=== PATIENT | male | born 1960 | race Caucasian/White ===

== ENCOUNTER 2017-12-18 18:08 | Emergency (ER) | payer OTHER, SELFPAY ==
[2017-12-18 18:09] VITALS: BP 183/95; PULSE 68; RESP 18; TEMP 36.9; O2SAT 97; BMI 34.5
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
[2017-12-18 20:19] VITALS: BP 205/91; PULSE 67; RESP 17; O2SAT 95
[2017-12-18] MEDS: HYDROcodone Bitartrate/Apap 5/325 Tablet PO (20:34)
[2017-12-18 21:17] VITALS: BP 179/84; PULSE 89; RESP 22; O2SAT 100
--- NOTE | 2017-12-18 21:18 | ED.RN ---
THIS NURSE REVIEWED D/C INSTRUCTIONS WITH PT. PT VERBALIZED UNDERSTANDING OF INSTRUCTIONS. IV D/C. IV CATHETER INTACT. PT TOLERATED WELL. PT DENIES FURTHER NEEDS OR QUESTIONS AT THIS TIME. PT AMBULATES FROM ROOM ON OWN WITHOUT ASSISTANCE FROM STAFF
== END 2017-12-18 21:19 | disposition home or self-care (01) ==
PROVIDERS: Emergency Provider Emergency Medicine
DX: S16.1XXA Strain of muscle, fascia and tendon at neck level, initial encounter (principal); S39.012A Strain of muscle, fascia and tendon of lower back, initial encounter; V49.50XA Passenger injured in collision with unspecified motor vehicles in traffic accident, initial encounter; Y93.89 Activity, other specified; Y92.410 Unspecified street and highway as the place of occurrence of the external cause; I10 Essential (primary) hypertension; F31.9 Bipolar disorder, unspecified; E66.9 Obesity, unspecified; Z68.34 Body mass index [BMI] 34.0-34.9, adult; Z79.899 Other long term (current) drug therapy
CPT/HCPCS: 72040; 72100; 72125; 99284; J7030; A4216

== ENCOUNTER 2018-03-12 09:30 | Outpatient (RCR) | payer OTHER, SELFPAY ==
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
--- NOTE | 2018-03-12 10:23 | HP.PTDCSUM_ITS ---
HP - PT D/C Summary It has been my pleasure to treat NIKO BROWN under orders from Ahmet Dillon, for the diagnosis of CERVICAL SPRAIN, LUMBAR SPRAIN for a total of 13 visit(s). Discharge Date: Please see the following information for a summary of their discharge status. - Subjective Subjective: PATIENT REPORTS HE HASN'T HAD TO TAKE ALEVE FOR A DAY AND A HALF. NO HEADACHES FOR A WEEK AND A HALF. PATIENT REPORTS HE FEELS BACK TO NORMAL AND MAYBE BETTER IN SOME WAYS THAT BEFORE. PATIENT REPORTS OCCASSIONAL LEFT SHOULDER SORENESS - NOT PAIN. OCCASSIONAL STIFF NECK TOO. PATIENT REPORTS EVEN HIS KNEE FEELS BETTER. PATIENT REPORTS POSTURE CONTROL REALLY HELPS HIM. PATIENT REPORTS HE PREFERS TO DISCONTINUE PT AT THIS TIME. PATIENT IS VERY UPBEAT AND POSITIVE ABOUT ALL THE PROGRESS HE HAS MADE. - Pain Lumbar Spine Pain Intensity (Out of 10): 0 Cerv. Spine Pain Intensity (Out of 10): 0 LUE Pain Intensity (Out of 10): 1 Headache Pain Intensity (Out of 10): 0 R knee Pain Intensity (Out of 10): 0 - Overall Improvement % Improvement: 95 - Objective Objective/Function: ALL GOALS MET. UPON EXAM, Motor deficit: RODNEY UE MMT IS 5/ 5 AND PATIENT DENIED INCREASED NECK OR SHOULDER PAIN WITH MMT'ING OF UE'S. RODNEY LE STRENGTH IS ALSO 5/5 WITH MMT'ING AND AGAIN PAIN IS DENIED WITH TESTING. Sensory deficit: RODNEY LE LIGHT TOUCH SENSATION INTACT AND SYMMETRICAL. ROM deficit: RODNEY UE ROM WFL WITH GOOD MECHANICS AND WITHOUT C/O PAIN. Cervical Mvmt Loss: Flex: NIL. Pro: NIL. Ext: MIN. Ret: MOD. RSB: MIN. LSB: MIN. R Rot: MIN. L Rot: MIN. PATIENT HAS DENIES PAIN WITH CERVICAL ROM TESTING ALL PLANES. Lumbar mvmt loss: flex - NIL. ext - MOD. R SG - MIN. L SG - MMIN. Core strength: FAIR. SCAPULAR STRENGTH: FAIR. Palpation: PATIENT DENIES INCREASED PAIN WITH PALPATION OF SPINE OR EXTREMITIES. - Goals Goal 1:: DECREASE C/O HEAD/NECK/SHOULDER PAIN. Goal Progress: Goal Met Goal 2:: DECREASE C/O RODNEY HAND NUMBNESS/TINGLING. Goal Progress: Goal Met Goal 3:: DECREASE C/O LOW BACK AND RIGHT POSTERIOR KNEE PAIN Goal Progress: Goal Met Goal 4:: IMPROVE BENDING, LIFTINIG, SITTING, STANDING, WALKING, ADL, WORK AND SLEEP FUNCTION. Goal Progress: Goal Met Goal 5:: INSTRUCT IN PROPHYLAXIS Goal Progress: Goal Met - Plan Plan: D/C TO INDEP WATER EX PROGRAM. PATIENT IS AGREEABLE. - D/C Information If there are questions or concerns regarding this patient's physical therapy, please feel free to call me at [phone]. Thank you for the referral of this patient. Sincerely, Brook Currie
== END 2018-03-12 19:00 | disposition home or self-care (01) ==
LOC: PT 09:30
PROVIDERS: Visit Provider Chiropractor
DX: S13.4XXD Sprain of ligaments of cervical spine, subsequent encounter (principal); M51.36 Other intervertebral disc degeneration, lumbar region
CPT/HCPCS: 97113; 97162; 97530

== ENCOUNTER 2018-12-21 12:09 | Emergency (ER) | payer OTHER, SELFPAY ==
[2018-12-21 12:12] VITALS: BP 154/93; PULSE 63; RESP 18; TEMP 37.1; O2SAT 97; BMI 35.9
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
--- NOTE | 2018-12-21 12:42 | ED.VISSUMM ---
- ER Visit Summary Date of Service: 12/21/18 Chief Complaint: Head injury and head laceration History of Present Illness: The patient is a 58 M your bipolar and hypertension. Currently on no meds. Patient states that he is walking to get in his truck. He slipped on the ice and hit his head on the door frame in the running board. He has a laceration in the posterior scalp. Has a headache but no nausea or vomiting. No LOC. Was states he struck it very hard he was dazed. It took him a while to get up. He denies any weakness or numbness to his upper or lower extremities. No other injuries. Physical Examination: Middle-aged male. No acute distress. Vital signs are stable afebrile. HEENT exam hematoma with about a 1 inch to 2 inch laceration posterior scalp. There is dried blood. No heavy active bleeding. No pulsatile bleeding. Pupils round reactive light. No facial trauma. Neck stiffness but no specific bony deformity trachea midline. Full range of motion of his neck. Trachea midline. Nontender. Lungs clear to auscultation bilaterally. Heart regular rhythm no murmur. Chest wall nontender. Abdomen soft nontender. Pelvic girdle intact. Normal range of motion to both upper and lower extremities. No deformities. Nontender. Equal symmetrical field marketing lead strength. Dorsi plantar flexion intact. Back nontender. Neurologically is awake and alert with no focal motor or sensory deficits. GCS of 15. Test Results: CT scan of his brain shows chronic changes. Skull hematoma. But no intracranial bleed. No fracture. Reviewed by me and read by the radiologist. Emergency Department Course and Treatment: Procedure note. Posterior scalp laceration approximately 2 inches. Locally anesthetized with plain lidocaine. Cleaned with Shur-Clens. Copiously washed with saline and and irrigated. Explored. There is no foreign body. No bony deformity of the skull. Closed using 5 4-0 Ethilon simple interrupted sutures. Proper hemostasis wound closure obtained. I went over the wound wound care both patient and his who is in the room. She will remove this sutures in 10 days. They are also instructed on head injury instructions and the risk of a delayed intracranial bleed. Treatment Plan: Head injury instructions. Suture removal 10 days. Wound care. Tetanus updated. Disposition: Discharge Impression: Fell on the ice. Closed head injury Scalp laceration with ER repair of 5 cm. Tetanus updated This note was generated with [employer] (Droppy) dictation software. It may contain incorrect words, spelling, and punctuation that were not noted in review of the chart prior to signing ED Disposition - Plan for ED Patient: Chief Complaint: Head Injury Referrals: Care Physician,No Primary [Primary Care Provider] -
[2018-12-21] MEDS: Diphth,Pertuss(Acell),Tet Vac 0.5 ML Vial IM (13:46)
[2018-12-21] MEDS: Acetaminophen 500 MG Tablet 1000 MG PO (14:11)
[2018-12-21 14:12] VITALS: BP 142/90; PULSE 87; RESP 16; O2SAT 99
--- NOTE | 2018-12-21 15:50 | ED.DEP ---
ED Disposition - Plan for ED Patient: Disposition: Home or Assisted Living Chief Complaint: Head Injury Instructions: ED Concussion, ED Laceration Scalp Stitch Or Stap Referrals: Soy Hernandez MD [STAFF PHYSICIAN] - 10 Day for suture removal Additional Instructions: Ice to scalp. Tylenol for pain. Suture removal in 10 days. Keep wound clean. Apply antibiotic ointment daily. May wash hair tonight. Return if severe headache, intractable vomiting or not acting right.
[2018-12-21 15:53] VITALS: BP 163/89; PULSE 87; RESP 18; O2SAT 98
== END 2018-12-21 15:56 | disposition home or self-care (01) ==
PROVIDERS: Emergency Provider Emergency Medicine
DX: S01.01XA Laceration without foreign body of scalp, initial encounter (principal); W00.0XXA Fall on same level due to ice and snow, initial encounter; Y93.01 Activity, walking, marching and hiking; Y92.9 Unspecified place or not applicable; F31.9 Bipolar disorder, unspecified
CPT/HCPCS: 12002; 70450; 72125; 90715; 99283

== ENCOUNTER → 2019-01-12 10:29 | Outpatient (CLI) | payer OTHER, SELFPAY ==
[2019-01-12 10:21] VITALS: BMI 35.9
--- NOTE | 2019-01-12 10:30 | RAD_ITS ---
STUDY: X-RAY - RIGHT KNEE REASON FOR EXAM: Chronic pain. TECHNIQUE: 4 view(s) of the knee. COMPARISON: None. FINDINGS: Normal visualized distal femur. Normal visualized proximal tibia and fibula. Normal proximal tibiofibular articulation. Normal medial femorotibial compartment. Normal lateral femorotibial compartment. There are small marginal osteophytes of the patella without joint space narrowing of the patellofemoral articulation. The soft tissue structures are unremarkable. RAD/Knee 4 or More Views IMPRESSION: Small marginal osteophytes of the patella. Otherwise, unremarkable x-ray examination of the right knee. Electronically Signed: Edinson Beltran MD at 11:48 EST Tel , Service support ,
--- NOTE | 2019-01-12 10:30 | RAD_ITS ---
STUDY: X-RAY - LEFT KNEE REASON FOR EXAM: Chronic pain. TECHNIQUE: 4 view(s) of the knee. COMPARISON: None. FINDINGS: Normal visualized distal femur. There is a metallic foreign body in the medial tibial plateau. Normal proximal tibiofibular articulation. Normal medial femorotibial compartment. Normal lateral femorotibial compartment. There are small marginal osteophytes of the patella without joint space narrowing of the patellofemoral articulation. The soft tissue structures are unremarkable. RAD/Knee 4 or More Views IMPRESSION: Small marginal osteophytes of the patella. Metallic foreign body in the medial tibial plateau. Electronically Signed: Edinson Beltran MD at 11:48 EST Tel , Service support ,
== END ==
PROVIDERS: Referring Provider Physician Assistant; Visit Provider Physician Assistant
DX: M25.561 Pain in right knee (principal); M25.562 Pain in left knee
CPT/HCPCS: 73564

== ENCOUNTER → 2019-01-17 10:47 | Outpatient (CLI) | payer OTHER, SELFPAY ==
[2019-01-17 10:41] VITALS: BMI 35.9
--- NOTE | 2019-01-17 10:50 | RAD_ITS ---
STUDY: X-RAY CHEST REASON FOR EXAM: Male, 58 years old. Cough and chest pain. TECHNIQUE: PA and lateral views of the chest. COMPARISON: None. FINDINGS: Hyperinflation. The lungs are clear. There is no demonstrated pleural abnormality. Normal size heart. Normal mediastinum and cas. Normal visualized pulmonary arteries. Normal visualized aortic arch and descending thoracic aorta. There are diffuse degenerative changes of the visualized thoracic spine. Normal visualized ribs, clavicles, and shoulders. There is no demonstrated abnormality of the visualized soft tissue structures of the upper abdomen. RAD/Chest PA and Lateral IMPRESSION: Hyperinflation. Electronically Signed: Sha Quinn MD at 11:23 EST , Service support ,
== END ==
PROVIDERS: Referring Provider Physician Assistant Surgical; Visit Provider Physician Assistant Surgical
DX: R05 Cough (principal); R50.9 Fever, unspecified
CPT/HCPCS: 71046

== ENCOUNTER → 2019-01-27 15:30 | Outpatient (CLI) | payer OTHER, SELFPAY ==
[2019-01-27 06:13] VITALS: BMI 35.9
== END ==
PROVIDERS: Referring Provider Physician Assistant; Visit Provider Physician Assistant
DX: J02.9 Acute pharyngitis, unspecified (principal)
CPT/HCPCS: 87081

== ENCOUNTER → 2020-02-02 12:24 | Outpatient (CLI) | payer OTHER, SELFPAY ==
[2020-02-02 12:16] VITALS: BMI 35.9
--- NOTE | 2020-02-02 12:27 | RAD_ITS ---
STUDY: X-RAY CHEST REASON FOR EXAM: Male, 59 years old. COUGH AND SOB TECHNIQUE: PA and lateral views of the chest. COMPARISON: 01/17/2019 FINDINGS: The lungs are clear and expanded. There is no demonstrated pleural abnormality. Normal size heart. Normal mediastinum and cas. Normal visualized pulmonary arteries. Normal visualized aortic arch and descending thoracic aorta. Normal visualized thoracic spine. Normal visualized ribs, clavicles, and shoulders. There is no demonstrated abnormality of the visualized soft tissue structures of the upper abdomen. RAD/Chest PA and Lateral IMPRESSION: Normal x-ray examination of the chest. Electronically Signed: Javad Hernandez MD at 12:48 EDT Tel , Service support ,
== END ==
PROVIDERS: Referring Provider Physician Assistant; Visit Provider Physician Assistant
DX: R05 Cough (principal)
CPT/HCPCS: 71046

== ENCOUNTER → 2020-08-03 10:23 | Outpatient (CLI) | payer OTHER, SELFPAY ==
[2020-02-02 12:16] VITALS: BMI 35.9
--- NOTE | 2020-08-03 10:25 | RAD_ITS ---
STUDY: X-RAY CHEST REASON FOR EXAM: Male, 59 years old. chest pain TECHNIQUE: 2 views COMPARISON: Prior chest radiograph of 02/02/2020 FINDINGS: The lungs are clear and expanded. There is no demonstrated pleural abnormality. Normal size heart. Normal mediastinum and cas. Normal visualized pulmonary arteries. There is atherosclerotic tortuosity of the aortic arch and descending thoracic aorta. There are diffuse degenerative changes of the visualized thoracic spine. Normal visualized ribs, clavicles, and shoulders. There is no demonstrated abnormality of the visualized soft tissue structures of the upper abdomen. RAD/Chest PA and Lateral IMPRESSION: No acute cardiopulmonary findings or changes. Negative for consolidation, atelectasis, cardiomegaly or pleural effusion. Negative for evidence of congestive heart failure. Electronically Signed: Madison Juan MD at 21:23 EDT , Service support ,
[2020-08-03 12:54] LABS: Absolute Lymphocyte Count 2.14 X10^3/uL (0.83-4.51); Absolute Neutrophil Count 7.4 X10^3/uL (2.0-7.7); Basophil% 0.9 % (0-1); Eosinophil# 0.14 X10^3/uL; Eosinophils% 1.3 % (0-5); Hematocrit 44.7 % (40-54); Hemoglobin 15.5 g/dL (13.0-16.5); Lymphocyte # 2.14 X10^3/ul (4.0); Mean Corp Hgb Conc 34.7 g/dL (32-36); Mean Corpuscular Hgb 30.5 pg (27.0-32.0); Mean Corpuscular Volume 87.8 fL (80-94); Monocyte# 0.79 X10^3/uL; Monocyte% 7.4 % (0-10); NRBC Flagged by Analyzer 0 % (0-5); Neutrophil # 7.41 X10^3/uL (2.7-7.7); Neutrophil % 69.4 % (47-70); Platelet Count 239 K/mm3 (150-450); RBC Distribution Width CV 12.5 % (11.6-14.6); RBC Distribution Width SD 39.6 fl (35.1-43.9); Red Blood Count 5.09 M/mm3 (4.6-6.2); White Blood Count 10.7 K/mm3 (4.4-11.0)
[2020-08-03 13:42] LABS: BUN 14 mg/dL (7-18); Glucose 146 mg/dL (74-106)
[2020-08-03 13:43] LABS: ALB/GLOB Ratio 1.2 RATIO (0.9-2.4); AST(SGOT) 28 U/L (15-37); Alanine Aminotransfer ALT/SGPT 51 U/L (16-61); Alkaline Phosphatase 55 U/L (45-117); Anion Gap 7 (5-15); Calcium,Total 9.1 mg/dL (8.5-10.1); Chloride 105 mmol/L (98-107); Cholesterol 166 mg/dL (200); EST Glomerular Filtration Rate 81 mL/min (>60); Est Glom Filt Rate - Afr Amer 97 mL/min (>60); Globulin 3.4 g/dL (2.2-4.2); High Density Lipoprotein 39 mg/dL; Potassium 4.3 mmol/L (3.5-5.1); Protein, Total 7.4 g/dL (6.4-8.2); Sodium Level 139 mmol/L (136-145); Thyroid Stim Hormone (TSH) 2.28 uIU/mL (0.358-3.74); Triglycerides 173 mg/dL; Very Low Density Lipoprotein 35 mg/dL (5-40)
== END ==
PROVIDERS: PCP Family Medicine; Referring Provider Family Medicine; Visit Provider Family Medicine
DX: R07.9 Chest pain, unspecified (principal); I10 Essential (primary) hypertension; R73.09 Other abnormal glucose
CPT/HCPCS: 36415; 71046; 80053; 80061; 83036; 84443; 85025

== ENCOUNTER → 2020-08-08 08:40 | Outpatient (CLI) | payer OTHER, SELFPAY ==
[2020-02-02 12:16] VITALS: BMI 35.9
--- NOTE | 2020-08-08 08:47 | CDU_ITS ---
Reason For Study: CAROTID STENOSIS Rt. Velocities/BP Lt. Velocities/BP Prox CCA 132/16 cm/sec. Prox CCA 102/27 cm/sec. Mid CCA 108/20 cm/sec. Mid CCA 125/21 cm/sec. Dist CCA 129/28 cm/sec. Dist CCA 91/30 cm/sec. Prox ICA 81/16 cm/sec. Prox ICA 91/25 cm/sec. Mid ICA 83/22 cm/sec. Mid ICA 91/29 cm/sec. Dist ICA 124/38 cm/sec. Dist ICA 96/29 cm/sec. Rt. ICA/CCA = 1.0. Lt. ICA/CCA = .9. Prox ECA 209/18 cm/sec. Prox ECA 134/14 cm/sec. Rt. Vert. 69/16 cm/sec. Lt. Vert. 40/0 cm/sec. Right Extracranial There is homogeneous, smooth atherosclerotic plaque noted in the right common carotid artery. There is heterogeneous, irregular atherosclerotic plaque noted in the right internal carotid artery. There is heterogeneous, irregular atherosclerotic plaque noted in the right external carotid artery. Antegrade flow is noted in the right vertebral artery. There is heterogeneous, irregular atherosclerotic plaque noted in the right bulb. .26 x .21 cm mobile thrombus noted in Rt Carotid bulb. Left Extracranial There is homogeneous, smooth atherosclerotic plaque noted in the left common carotid artery. There is homogeneous, smooth atherosclerotic plaque noted in the left internal carotid artery. There is homogeneous, smooth atherosclerotic plaque noted in the left external carotid artery. Antegrade flow is noted in the left vertebral artery. There is heterogeneous, irregular atherosclerotic plaque noted in the left bulb. Procedure Carotid Duplex [id number]. Results called to Dr Loving. Pt taken to ED. Exam performed in department. Interpretation Summary Moderate (50-69%) stenosis right extracranial internal carotid. Mild (<50%) stenosis left extracranial internal carotid. Flow within the vertebral arteries is antegrade bilaterally. Mobile thrombus noted in right bulb. Further evaluation with CTA. Ordering Physician: Derrell Salmeron Referring Physician: Derrell Salmeron Performed By: Kristen Mishra RDCS, RVT
== END ==
PROVIDERS: PCP Family Medicine; Referring Provider Family Medicine; Visit Provider Family Medicine
DX: I65.29 Occlusion and stenosis of unspecified carotid artery (principal); R06.02 Shortness of breath; R07.9 Chest pain, unspecified
CPT/HCPCS: 93880

== ENCOUNTER 2020-08-08 10:10 | Observation (INO) | payer OTHER, SELFPAY ==
[2020-02-02 12:16] VITALS: BMI 35.9
[2020-08-08] VITALS (14 sets, daily range): BP systolic 139–207; BP diastolic 78–103; PULSE 53–67; RESP 14–19; TEMP 36.2–36.8; O2SAT 96–100; BMI 35.3; BMI 35.6; BMI 35.7
--- NOTE | 2020-08-08 10:15 | NURSING ---
NO OLD EKGS
--- NOTE | 2020-08-08 10:42 | EKG12_ITS ---
Test Reason : CP Blood Pressure : / mmHG Vent. Rate : 067 BPM Atrial Rate : 067 BPM P-R Int : 148 ms QRS Dur : 092 ms QT Int : 390 ms P-R-T Axes : 025 -14 041 degrees QTc Int : 412 ms Normal sinus rhythm Poor R wave progression Confirmed by CHEYENNE GAGE, ZANA ([id number]), design editor YOVANA ROSENBAUM ([id number]) on 08/09/2020 1:07:47 PM Referred By: BRENDA Confirmed By:ZANA QUINN MD
[2020-08-08 10:53] LABS: Absolute Lymphocyte Count 2.52 X10^3/uL (0.83-4.51); Absolute Neutrophil Count 7.7 X10^3/uL (2.0-7.7); Basophil# 0.11 X10^3/uL; Eosinophil# 0.19 X10^3/uL; Eosinophils% 1.6 % (0-5); Hematocrit 46.9 % (40-54); Hemoglobin 16.1 g/dL (13.0-16.5); Lymphocyte # 2.52 X10^3/ul (4.0); Lymphocyte % 21.8 % (19-41); Mean Corp Hgb Conc 34.3 g/dL (32-36); Mean Corpuscular Hgb 30.1 pg (27.0-32.0); Mean Corpuscular Volume 87.8 fL (80-94); Mean Platelet Vol. 9.8 fl (6.2-12.0); Monocyte# 0.91 X10^3/uL; Monocyte% 7.9 % (0-10); NRBC Flagged by Analyzer 0 % (0-5); Neutrophil # 7.69 X10^3/uL (2.7-7.7); Neutrophil % 66.6 % (47-70); Platelet Count 266 K/mm3 (150-450); RBC Distribution Width CV 12.5 % (11.6-14.6); RBC Distribution Width SD 39.8 fl (35.1-43.9); Red Blood Count 5.34 M/mm3 (4.6-6.2); White Blood Count 11.6 K/mm3 (4.4-11.0)
[2020-08-08 11:00] LABS: International Normalized Ratio 0.9; Partial Thromboplast Time 24.9 Seconds (24.1-36.2)
[2020-08-08 11:07] LABS: Anion Gap -2 (5-15); BUN 14 mg/dL (7-18); BUN/Creat Ratio 14.8 RATIO (10-20); Calcium,Total 9.1 mg/dL (8.5-10.1); Chloride 107 mmol/L (98-107); Creatinine, Serum 0.94 mg/dL (0.70-1.30); EST Glomerular Filtration Rate 86 mL/min (>60); Est Glom Filt Rate - Afr Amer 104 mL/min (>60); Estimated Creatinine Clearance 93.26 ml/min; Glucose 142 mg/dL (74-106); Potassium 4.3 mmol/L (3.5-5.1); Sodium Level 139 mmol/L (136-145)
[2020-08-08 11:09] LABS: D-Dimer Quantitative (DVT/PE) <= 0.27 FEU/ug/m (0.27-0.49)
--- NOTE | 2020-08-08 11:16 | RAD_ITS ---
STUDY: X-RAY CHEST REASON FOR EXAM: Male, 59 years old. CP AND SOB X 3 DAYS TECHNIQUE: Single AP portable view of the chest. COMPARISON: Comparison is made with prior study dated 08/03/2020. FINDINGS: EKG electrodes are seen. The lungs are clear and expanded. There is no demonstrated pleural abnormality. Normal size heart. Normal mediastinum and cas. Normal visualized pulmonary arteries. Normal visualized aortic arch and descending thoracic aorta. There are diffuse degenerative changes of the visualized thoracic spine. Normal visualized ribs, clavicles, and shoulders. There is no demonstrated abnormality of the visualized soft tissue structures of the upper abdomen. RAD/Chest 1 View (Portable) IMPRESSION: No acute abnormality is seen. Electronically Signed: Sha Quinn, at 12:09 EDT , Service support ,
[2020-08-08] MEDS: Aspirin 81 MG TAB.CHEW 324 MG PO (11:33)
[2020-08-08] MEDS: Nitroglycerin SL (ED/IMG/CATH) 0.4 MG TABLET SUBLINGUAL ×3 (11:34→12:30)
--- NOTE | 2020-08-08 11:45 | ED.VISSUMM ---
- ER Visit Summary Date of Service: 08/08/20 Chief Complaint: Chest pain History of Present Illness: The patient is a 59 M who presents with chest pain that has been constant over the last 5 days. Patient states the pain is over the left upper chest. Patient describes it as sharp. Patient states the pain radiates into his neck. Patient states the pain is worse with movement of his arm. Patient admits to some shortness of breath. Patient states this is worse with any exertion. Patient also admits to some sweats yesterday. Patient admits to a dry cough but denies any fevers or chills. Patient admits to some intermittent lightheadedness. Patient had an outpatient carotid Doppler performed today and was referred to the emergency department for a blockage. Physical Examination: Vital signs are stable except for an elevated blood pressure of 207/103. Patient is afebrile. Patient is in no acute distress. Oral mucosa is pink and moist. Neck is supple. Trachea is midline. There is no JVD noted. Heart was regular rate and rhythm. Lungs are clear and equal bilaterally. Abdomen is soft. Bowel sounds are normal. There is no tenderness. There is no rebound or guarding noted. Skin is warm dry. Cranial nerves II through XII are intact. There are no focal motor or sensory deficits noted. Extremities are intact. There is no calf tenderness or edema. Test Results: EKG shows a normal sinus rhythm with a rate of 87. There are no acute ST or T wave changes noted. There are no prior EKGs available for comparison. CBC was normal. Basic metabolic profile was essentially within normal limits. Glucose was slightly elevated at 142. PT with INR and PTT were normal. Troponin and d-dimer were normal. Chest x-ray was obtained. There is no acute cardiopulmonary process. This was interpreted by the radiologist and reviewed by myself. Emergency Department Course and Treatment: Patient was given aspirin and sublingual nitroglycerin. Patient states his pain is improved. Patient has a HEART score of 4. I did review the results of his carotid Dopplers that were done this morning. There is 50-69% stenosis of the internal and external carotid arteries. There is also a mobile thrombus noted in the right carotid bulb and follow-up with CTA of the head and neck was recommended. CTA of the head neck was ordered. There is 50 to 69% stenosis of the right internal carotid artery. There is also a small thrombus at the right carotid bifurcation. This was interpreted by the radiologist and reviewed by myself. Case was discussed with the hospitalist. Patient will be admitted for chest pain evaluation. Patient understood and was agreeable with the plan. All questions were answered. Disposition: Admit to hospital Impression: 1. Chest pain 2. Right carotid artery stenosis This note was generated with [employer] dictation software. It may contain incorrect words, spelling, and punctuation that were not noted in review of the chart prior to signing ED Disposition - Plan for ED Patient: Disposition: Acute Care Hospital [facility] Diagnosis: Chest pain, Stenosis of right carotid artery Referrals: Derrell Salmeron MD [Primary Care Provider] -
--- NOTE | 2020-08-08 12:06 | CT_ITS ---
STUDY: CTA HEAD AND NECK WITH CONTRAST REASON FOR EXAM: Male, 59 years old. MOBILE RT BULB THROMBUS WITH MODERATE STENOSIS RT EXT CAROTID RADIATION DOSAGE (If Supplied By Facility): CTDIvol = ( 28.52 ) mGy, DLP = ( 1628.18 ) mGycm TECHNIQUE: CT angiography was performed with a multi-detector CT scanner. Data acquisition was obtained from the skull base through the vertex following intravenous administration of IV 100mL [id number]-[id number]. MIP images were reconstructed from the axial data set. Post-processing of the angiographic images was performed, with multiplanar reformation and 3D reconstruction. Individualized dose optimization techniques were used for this CT. COMPARISON: No relevant priors. FINDINGS: Normal bilateral petrous carotid arteries. Normal right cavernous carotid artery with a normal supraclinoid bifurcation. Normal left cavernous carotid artery with a normal supraclinoid bifurcation. Normal right A1 segments of the anterior cerebral artery. Normal left A1 segments of the anterior cerebral artery. Normal intact anterior communicating artery (ACOM). Normal bilateral A2 segments of the anterior cerebral arteries. Normal right M1 and M2 segments of the middle cerebral arteries, with a normal M1 bifurcation. Normal left M1 and M2 segments of the middle cerebral arteries, with a normal M1 bifurcation. Normal right posterior communicating artery (PCOM). Normal left posterior communicating artery (PCOM). Normal bilateral vertebral arteries. Normal basilar artery with a normal basilar bifurcation. The visualized bilateral superior cerebellar (SCA) arteries are normal. Normal bilateral P1, P2 and visualized P3 segments of the posterior cerebral arteries. There is no demonstrated aneurysm of the [place]. There is no demonstrated abnormality of the visualized brain. AORTIC ARCH: Normal visualized aortic arch. Normal origins of the brachiocephalic, left common carotid, and left subclavian arteries. RIGHT CAROTID ARTERIES: Normal right common carotid artery (CCA). Normal right common carotid bulb. There is moderate atherosclerotic plaque formation of the origin of the right internal carotid artery with an estimated stenosis of 50-69% stenosis. Focal thrombus is seen within the carotid bulb. Normal visualized cervical portion of the right internal carotid artery. Normal origin of the right external carotid artery (ECA). LEFT CAROTID ARTERIES: Normal left common carotid artery (CCA). Normal left common carotid bulb. Normal origin of the left internal carotid (ICA) artery without a hemodynamically significant stenosis. Normal visualized cervical portion of the left internal carotid artery. Normal origin of the left external carotid artery (ECA). VERTEBRAL ARTERIES: There is enhancement within the bilateral vertebral arteries with a small left vertebral artery, and a dominant right vertebral artery. CT/CTA Head AND Neck W/ Contrast IMPRESSION: Calcific plaque at the origin of the right internal carotid artery causing between 50 and 69% stenosis. Filling defect into with a small thrombus is seen at the right carotid bifurcation. Electronically Signed: Sha Quinn, at 12:48 EDT , Service support ,
--- NOTE | 2020-08-08 13:04 | HP.PCM_ITS ---
History of Present Illness Date of Admission: 08/08/20 Chief Complaint: Chest pain The patient is a 59 year old M with PMH as below who presents to the hospital with with a one-month history of chest pain, has had a couple of episodes where he is felt some slight chest pain that resolved fairly quickly however in the last 5 days he had an episode of viselike chest pressure when he went to his PCPs office. He was a new patient there and had an EKG, and he relates that the physician commented well but did not express anything about what his EKG was at the time. His current EKG is unremarkable and does not show any ischemic changes, his heart rate is 54 however he did start metoprolol and Norvasc from h is PCP. He says the pain is over his left upper chest and says it is sharp. It does radiate into his neck and it is worse with arm movement. He has no some shortness of breath and lightheadedness and that it is worse with exertion. He had gone to his PCP who asked him to have a carotid ultrasound of his neck which did show 50 to 69% stenosis in his right carotid artery but there is also what w as felt to be a mobile plaque. Therefore he also was referred to the hospital to get a CTA of his head and neck. The CTA of the head and neck confirmed the stenosis and that there is a filling defect at the bifurcation of the right carotid artery. Past Medical History Past Medical History (Chronic Problems): Chronic Problems (Last Updated 08/07/20 @ 17:16 by Bridget Gordon) Essential hypertension (Chronic) Medical History: Medical History (Last Updated 08/07/20 @ 17:16 by Bridget Gordon) Shortness of breath (Acute) R06.02 Essential hypertension (Chronic) I10 Chest pain (Acute) R07.9 Bipolar 1 disorder F31.9 Arthritis M19.90 Acute bronchitis (Resolved) J20.9 Pharyngitis (Resolved) J02.9 Shoulder pain M25.519 Allergies No Known Allergies Allergy (Verified 08/08/20 10:16) Home Medications: Ambulatory Orders Medication Instructions Recorded amlodipine 10 mg tablet 10 mg PO DAILY 08/07/20 lithium carbonate 300 mg capsule 600 mg PO BID cap 08/07/20 metoprolol succinate 50 mg 50 mg PO DAILY 08/07/20 tablet,extended release 24 hr trazodone 100 mg tablet 1 - 2 mg PO QHS tab 08/07/20 Surgical History: Surgical History (Last Updated 08/07/20 @ 17:12 by Bridget Gordon) History of arthroscopy of knee Z98.890 History of bursectomy Z98.890 left olecrenon History of carpal tunnel release Z98.890 Smoking Status: Never smoker Alcohol: Occasional Drugs: None - *Family History Maternal Family History: Family History (Last Updated 08/07/20 @ 17:14 by Bridget Gordon) Father Myocardial infarction Hypertension Alcoholism Mother Cancer Diabetes Brother Heart disease Hypertension Alcoholism Cancer Grandfather Myocardial infarction CVA (cerebral vascular accident) Carotid arterial disease Review of Systems Constitutional: Denies: Chills, Fever, Weight Change HEENT: Denies: Head Aches, Sinus Congestion, Sinus Drainage Cardiovascular: Reports: Chest Pain. Denies: Palpitations Respiratory: Reports: Shortness of Breath. Denies: Cough, Shortness of breath at rest, Sputum production Gastrointestinal: Denies: Abdominal Pain, Nausea, Vomiting Genitourinary: Denies: Dysuria Musculoskeletal: Denies: Joint Pain, Joint Tenderness Skin: Denies: Rash, Wounds Neurological: Denies: Numbness, Tingling, Focal weakness Psychiatric: Denies: Anxiety, Depression Hematologic/ Lymphatic: Denies: Easy Bruising, Easy Bleeding VTE Information - Inpt Only VTE Present on Admission: No Patient Problems: Active and Suspected Problems (Last Updated 08/07/20 @ 17:16 by Bridget No) Stenosis of right carotid artery (Acute) Shortness of breath (Acute) Chest pain (Acute) - Physical Exam Vitals/I&O's: Vital Signs Temp Pulse Resp BP Pulse Ox 97.8 F 59 L 14 157/81 H 97 08/08/20 13:01 08/08/20 13:01 08/08/20 13:01 08/08/20 13:01 08/08/20 13:01 Oxygen Delivery Method Room Air Weight: 267 lb 13.786 oz Body Mass Index (BMI) 35.3 General: Alert, Oriented x3, Cooperative, No apparent distress HEENT: Atraumatic, PERRLA, EOMI, Normocephalic Oral: Moist Mucosa Neck: Supple, No JVD Lungs: Clear to auscultation, Normal air movement, No rhonchi, No wheeze, No rales Cardiovascular: Regular rate, Regular Rhythm, Normal S1, Normal S2, No murmurs Abdomen: Soft, Non Tender, Non-Distended, No Hepato-splenomegaly, Obese Extremities: No edema, Capillary Refill Less than 3 Seconds Skin: No rashes, No breakdown Neurological: Neuro grossly intact, Sensory exam intact to light touch and pain Psych/Mental Status: Normal Affect, Appropriate Laboratory Results 08/08/20 10:18: WBC 11.6 H, RBC 5.34, Hgb 16.1, Hct 46.9, MCV 87.8, MCH 30.1, MCHC 34.3, RDW Std Deviation 39.8, RDW Coeff of Erin 12.5, Plt Count 266, MPV 9.8, Immature Gran % (Auto) 1.100 H, Neut % (Auto) 66.6, Lymph % (Auto) 21.8, Mcduffie % (Auto) 7.9, Eos % (Auto) 1.6, Baso % (Auto) 1.0, Absolute Neuts (auto) 7.7, Absolute Lymphs (auto) 2.52, Nucleated RBC % 0 08/08/20 10:18: PT 12.0, INR 0.9, APTT 24.9, D-Dimer Quant (PE/DVT) <= 0.27 08/08/20 10:18: Sodium 139, Potassium 4.3, Chloride 107, Carbon Dioxide 34.0 H, Anion Gap -2 L, BUN 14, Creatinine 0.94, Estim Creat Clear Calc 93.26, Est GFR (MDRD) Af Amer 104, Est GFR (MDRD) Non-Af 86, BUN/Creatinine Ratio 14.8, Glucose 142 H, Calcium 9.1, Troponin I < 0.015 Assessment/Plan All Active Problems (Last Updated 08/07/20 @ 17:16 by Bridget Gordon) Stenosis of right carotid artery (Acute) Shortness of breath (Acute) Chest pain (Acute) Acute bronchitis (Resolved) Pharyngitis (Resolved) 1. Chest pain/mobile plaque at the right carotid bifurcation/HTN/orbit obesity -Troponin is unremarkable, EKG does not show any ischemic changes -We will obtain serial troponins and have an exercise stress test in the morning -I discussed the issue of the stenosis in the mobile plaque with Dr. Loving who read the carotid ultrasound and he would like the patient to be on dual antiplatelets as well as a statin which will be initiated today. -We will continue with his Norvasc and metoprolol 2. Bipolar -Stable -Continue with lithium DVT: Ambulation OBSV E&M: [id number] Initial observation care L2
--- NOTE | 2020-08-08 14:13 | EKG12_ITS ---
Test Reason : Blood Pressure : / mmHG Vent. Rate : 054 BPM Atrial Rate : 054 BPM P-R Int : 156 ms QRS Dur : 094 ms QT Int : 422 ms P-R-T Axes : 034 -06 040 degrees QTc Int : 400 ms Sinus bradycardia Poor R wave progression Confirmed by CHEYENNE GAGE, ZANA ([id number]), metropolitan editor YOVANA ROSENBAUM ([id number]) on 08/09/2020 1:12:18 PM Referred By: ETHEL Confirmed By:ZANA QUINN MD
[2020-08-08] MEDS: Atorvastatin Calcium 40 MG Tablet PO (21:50)
[2020-08-08] MEDS: traZODone 100 MG Tablet PO (23:18)
[2020-08-08] MEDS: Lithium Carbonate 300mg Capsule 600 MG PO (23:18)
[2020-08-09] VITALS (10 sets, daily range): BP systolic 157–166; BP diastolic 69–86; PULSE 49–83; RESP 14–20; TEMP 36.4–36.7; O2SAT 96–98
--- NOTE | 2020-08-09 05:55 | EKG12_ITS ---
Test Reason : AM EKG Blood Pressure : / mmHG Vent. Rate : 055 BPM Atrial Rate : 055 BPM P-R Int : 156 ms QRS Dur : 096 ms QT Int : 424 ms P-R-T Axes : 041 000 048 degrees QTc Int : 405 ms Sinus bradycardia Otherwise normal ECG When compared with ECG of 08-AUG-2020 13:48, MANUAL COMPARISON REQUIRED, DATA IS UNCONFIRMED Confirmed by DAVID GAGE, REGGIE ([id number]), photographic editor YOVANA ROSENBAUM ([id number]) on 08/13/2020 1:22:26 PM Referred By: RULA Confirmed By:DON HERNANDEZ MD
[2020-08-09] MEDS: Aspirin 81 MG TAB.CHEW PO (06:12)
[2020-08-09] MEDS: Clopidogrel Bisulfate 75 MG Tablet PO (06:12)
[2020-08-09 06:26] LABS: Absolute Lymphocyte Count 3.17 X10^3/uL (0.83-4.51); Absolute Neutrophil Count 6.4 X10^3/uL (2.0-7.7); Basophil# 0.11 X10^3/uL; Eosinophil# 0.25 X10^3/uL; Eosinophils% 2.3 % (0-5); Hematocrit 43.3 % (40-54); Hemoglobin 14.9 g/dL (13.0-16.5); Lymphocyte # 3.17 X10^3/ul (4.0); Lymphocyte % 29.1 % (19-41); Mean Corp Hgb Conc 34.4 g/dL (32-36); Mean Corpuscular Hgb 30.3 pg (27.0-32.0); Mean Platelet Vol. 9.6 fl (6.2-12.0); Monocyte# 0.94 X10^3/uL; Monocyte% 8.6 % (0-10); NRBC Flagged by Analyzer 0 % (0-5); Neutrophil % 58.6 % (47-70); Platelet Count 207 K/mm3 (150-450); RBC Distribution Width CV 12.4 % (11.6-14.6); RBC Distribution Width SD 39.8 fl (35.1-43.9); Red Blood Count 4.92 M/mm3 (4.6-6.2); White Blood Count 10.9 K/mm3 (4.4-11.0)
[2020-08-09 06:50] LABS: Anion Gap 5 (5-15); BUN 14 mg/dL (7-18); BUN/Creat Ratio 15.7 RATIO (10-20); Calcium,Total 8.8 mg/dL (8.5-10.1); Chloride 105 mmol/L (98-107); Cholesterol 169 mg/dL (200); Creatinine, Serum 0.89 mg/dL (0.70-1.30); EST Glomerular Filtration Rate 92 mL/min (>60); Est Glom Filt Rate - Afr Amer 111 mL/min (>60); Estimated Creatinine Clearance 95.67 ml/min; Glucose 134 mg/dL (74-106); High Density Lipoprotein 34 mg/dL; Potassium 3.8 mmol/L (3.5-5.1); Sodium Level 138 mmol/L (136-145); Triglycerides 232 mg/dL; Very Low Density Lipoprotein 46 mg/dL (5-40)
[2020-08-09] MEDS: amLODIPine 10 MG Tablet PO (08:24)
--- NOTE | 2020-08-09 12:07 | PCM.PN.HOSP ---
Patient Problems: Active and Suspected Problems (Last Updated 08/07/20 @ 17:16 by Bridget Gordon) Stenosis of right carotid artery (Acute) Shortness of breath (Acute) Chest pain (Acute) Reason for Visit: JAUN, cellulitis Subjective: Pt agreeable to biopsy. Ongoing LE edema with serosanguinous drainage. Denies fever/chills. Denies SOB / cough. He continues to make some urine. Vitals/I&O's: Vital Signs Temp Pulse Resp BP Pulse Ox 98.0 F 66 20 H 166/81 H 98 08/09/20 07:49 08/09/20 07:49 08/09/20 07:49 08/09/20 07:49 08/09/20 07:51 Oxygen Delivery Method Room Air Weight: 269 lb 2.951 oz Body Mass Index (BMI) 35.6 Intake and Output for Last 24 Hours 08/07/20 08/08/20 08/09/20 23:59 23:59 23:59 Intake Total 960 / 960 540 / 540 Balance 960 / 960 540 / 540 General: Alert, Oriented x3, Cooperative HEENT: Atraumatic, PERRLA, EOMI, Normocephalic Neck: Supple, No JVD, Negative Carotid Bruits Lungs: Clear to auscultation, Normal air movement Cardiovascular: Regular rate, No murmurs Abdomen: Bowel Sounds Present, Soft, Non Tender, Obese Extremities: No edema, Capillary Refill Less than 3 Seconds, Edema - 3+ pitting edema BLE, mild warmth, erythema, serosanguinous drainage. Skin: No rashes, No breakdown Musculoskeletal: No Tenderness to Palpation of Joints or Extremities Neurological: Cranial nerves II-XII grossly intact Psych/Mental Status: Normal Affect, Appropriate, Alert and oriented to time, place, person, mood and affect Laboratory Results 08/08/20 13:54: Troponin I < 0.015 08/08/20 17:15: Troponin I < 0.015 08/09/20 06:12: WBC 10.9, RBC 4.92, Hgb 14.9, Hct 43.3, MCV 88.0, MCH 30.3, MCHC 34.4, RDW Std Deviation 39.8, RDW Coeff of Erin 12.4, Plt Count 207, MPV 9.6, Immature Gran % (Auto) 0.400, Neut % (Auto) 58.6, Lymph % (Auto) 29.1, [place] % (Auto) 8.6, Eos % (Auto) 2.3, Baso % (Auto) 1.0, Absolute Neuts (auto) 6.4, Absolute Lymphs (auto) 3.17, Nucleated RBC % 0 08/09/20 06:12: Sodium 138, Potassium 3.8, Chloride 105, Carbon Dioxide 28.0, Anion Gap 5, BUN 14, Creatinine 0.89, Estim Creat Clear Calc 95.67, Est GFR (MDRD) Af Amer 111, Est GFR (MDRD) Non-Af 92, BUN/Creatinine Ratio 15.7, Glucose 134 H, Calcium 8.8, Triglycerides 232 H, Cholesterol 169, LDL Cholesterol 89, VLDL Cholesterol 46 H, HDL Cholesterol 34 L Current Medications Amlodipine Besylate (Norvasc) 10 mg PO DAILY [facility] Last Admin: 08/09/20 08:24 Dose: 10 mg Documented by: Aspirin (Aspirin, Baby) 81 mg PO DAILY@0800 [facility] Last Admin: 08/09/20 06:12 Dose: 81 mg Documented by: Atorvastatin Calcium (Lipitor) 40 mg PO QHS [facility] Last Admin: 08/08/20 21:50 Dose: 40 mg Documented by: Clopidogrel Bisulfate (Plavix) 75 mg PO DAILY [facility] Last Admin: 08/09/20 06:12 Dose: 75 mg Documented by: Klemme Carbonate (Klemme Carbonate) 600 mg PO BID [facility] Last Admin: 08/08/20 23:18 Dose: 600 mg Documented by: Melatonin (Melatonin) 3 mg PO QHS PRN PRN PRN Reason: INSOMNIA Metoprolol Succinate (Toprol Xl (Beta Rajani)) 50 mg PO DAILY [facility] Nitroglycerin (Nitrostat) 0.4 mg SUBLINGUAL Q5M PRN PRN Reason: CARDIAC/CHEST PAIN Ondansetron HCl (Zofran) 4 mg IV Q8H PRN PRN PRN Reason: NAUSEA/VOMITING Sodium Chloride () 10 - 40 ml IV UD PRN PRN Reason: SALINE FLUSH Trazodone HCl (Desyrel) 100 mg PO QHS PRN PRN PRN Reason: sleep Last Admin: 08/08/20 23:18 Dose: 100 mg Documented by: Medical Necessity - Tobacco Use Smoking Status: Never smoker Tobacco Use: Non-smoker Assessment/Plan All Active Problems (Last Updated 08/07/20 @ 17:16 by Bridget Gordon) Stenosis of right carotid artery (Acute) Shortness of breath (Acute) Chest pain (Acute) Acute bronchitis (Resolved) Pharyngitis (Resolved) 1. BL LE cellulitis complicated by chronic venous insufficiency - continue rocephin - cx's susceptible. Continue wound care with daily dressing changes and plan for wound care center follow up. 2. JAUN - Neprhology consulted. agreeable to renal bx today. no improvement in renal function, decent urine output the last 2 days. aspirin held, HCTZ and ARB held, metformin held. 3. Hyponatremia - Improving daily. HCTZ stopped. fluids restricted. likely hypervolemic. 4. chronic systolic CHF, cardiomyopathy - edematous however will not be able to tolerate lasix given worsening renal dz. No SOB. Echo with EF 50%. CM has been related to tacchyarrythmia in the past - pt remains on metoprolol and amiodarone. 5. DMt2 with morbid obesity - lantus + SSI. 6. HTN - stable now. DVT ppx: lovenox held for bx DC planning: PTOT evals. This patient was seen by Marco Caro PA-C under the supervision of Doctor Terrell.
[2020-08-09] MEDS: Lithium Carbonate 300mg Capsule 600 MG PO (12:11)
[2020-08-09] MEDS: Metoprolol(XL)Succ 50 MG Tablet PO (12:11)
--- NOTE | 2020-08-09 15:08 | STRESSREP ---
Stress Test Report Date: 08/09/2020 Procedure: Pharmacologic stress nuclear imaging study Indications: Chest pain Consent: Per the patient Procedure: The patient underwent pharmacologic (Regadenoson) evaluation with a peak heart rate of 91 beats per minute (57%predicted maximal heart rate) and a peak blood pressure of 170/96 mmHg. The baseline ECG demonstrated normal sinus rhythm. EKG during lexiscan infusion revealed no significant ischemic changes. EKG post infusion revealed no significant ischemic changes [There were no cardiac dysrhythmias pretest, during pharmacologic infusion, or recovery]. [There was no complaint of chest discomfort during pharmacologic infusion or recovery]. The examination was discontinued secondary to completion of protocol. Impression: 1. Lexiscan stress test test is negative for Lexiscan infusion induced EKG changes of ischemia. 2. Lexiscan stress test test is negative for Lexiscan infusion induced chest pain. 3. Results of the nuclear portion of the test is as below Myocardial perfusion imaging study: Technique: The patient was injected with 14.8 millicuries of technetium 99m Cardiolite and subsequently rest SPECT Cardiolite nuclear imaging was obtained in the horizontal long, vertical long, and short axis views. The patient underwent pharmacologic (Regadenoson) evaluation. Please see above for details. The patient was injected with 44.4 millicuries of technetium 99m Cardiolite and subsequently stress SPECT Cardiolite nuclear imaging was obtained in the horizontal long, vertical long, and short axis views. A gated Cardiolite study at peak stress was obtained. Interpretation: Rest and stress SPECT Cardiolite nuclear imaging status post realignment, normalization, and attenuation correction demonstrate normal myocardial radioisotope uptake. Gated images reveal no significant regional wall motion abnormalities. The reported LVEF is [62]%. Impression: 1. There is no evidence of significant ischemia or infarction. 2. Estimated ejection fraction is 62%. This note was generated with [employer] software. It may contain incorrect words, spelling, and punctuation that were not noted in checking the note before signing.
--- NOTE | 2020-08-09 15:21 | DCINST_ITS ---
- Discharge Diagnoses Current Active Problems: Current Active and Chronic Problems (Last Updated 08/07/20 @ 17:16 by Bridget Gordon) Stenosis of right carotid artery (Acute) Shortness of breath (Acute) Essential hypertension (Chronic) Chest pain (Acute) You will use the following diet at home:: Calorie/Carbohydrate Controlled (specify 1200, 1400, etc), Cardiac Your food should be the consistency of: Regular Your liquids should be the consistency of: Regular/Thin Discharge Activity: Return to Normal Activity Call your doctor if you observe: Fever of 101 or Higher, Shortness of breath, Dizziness, Fainting spells, Swelling in the ankles, Chest pain, Increased palpitations (irregular heartbeat) Allergies/Adverse Reactions: Allergies No Known Allergies Allergy (Verified 08/08/20 10:16) Medications to take at Discharge amlodipine 10 mg tablet 10 mg PO DAILY 08/07/20 lithium carbonate 300 mg capsule 600 mg PO BID cap 08/07/20 metoprolol succinate 50 mg tablet,extended release 24 hr 50 mg PO DAILY 08/07/20 trazodone 100 mg tablet 1 - 2 mg PO QHS tab 08/07/20 Aspirin [Aspirin, Baby] 81 mg PO DAILY@0800 #30 tab.chew 08/09/20 Atorvastatin Calcium [Lipitor] 40 mg PO QHS #30 tab 08/09/20 Clopidogrel Bisulfate [Plavix] 75 mg PO DAILY #30 tab 08/09/20 The following prescriptions were given: Aspirin [Aspirin, Baby] 81 mg PO DAILY@0800 #30 tab.chew Transmission Status: Pending to [facility] Atorvastatin Calcium [Lipitor] 40 mg PO QHS #30 tab Transmission Status: Pending to [facility] Clopidogrel Bisulfate [Plavix] 75 mg PO DAILY #30 tab Transmission Status: Pending to [facility] Primary Care Physician: Derrell Salmeron MD [Primary Care Provider] - Please follow up with your Primary Care Physician in: 3-5 days Test Results: Test results from this visit will be discussed in further detail at your follow- up appointment, if applicable. Please Follow Up With: Souleymane Loving MD When: 2-4 weeks
--- NOTE | 2020-08-09 15:24 | DS.PCM_ITS ---
Discharge Date and Diagnosis - Problem List Patient Problems: Active and Suspected Problems (Last Updated 08/07/20 @ 17:16 by Bridget Nolt) Stenosis of right carotid artery (Acute) Shortness of breath (Acute) Chest pain (Acute) Date of Admission: 08/08/20 Date of Discharge: 08/09/20 - Primary Discharge Diagnosis Acute Problems: Active Problems (Last Updated 08/07/20 @ 17:16 by Bridget Nolt) Stenosis of right carotid artery (Acute) Shortness of breath (Acute) Chest pain (Acute) - Secondary Discharge Diagnosis Chronic Problems: Chronic Problems (Last Updated 08/07/20 @ 17:16 by Bridget Nolt) Essential hypertension (Chronic) Hospital Course and Treatment Imaging Results: Clinical Impression(s) from Imaging Studies Chest X-Ray 08/08/20 11:16 IMPRESSION: No acute abnormality is seen. Electronically Signed: Sha Quinn, at 12:09 EDT , Service support , Head/Neck CTA 08/08/20 12:06 IMPRESSION: Calcific plaque at the origin of the right internal carotid artery causing between 50 and 69% stenosis. Filling defect into with a small thrombus is seen at the right carotid bifurcation. Electronically Signed: Sha Quinn, at 12:48 EDT , Service support , Stress Test Report Date: 08/09/2020 Procedure: Pharmacologic stress nuclear imaging study Indications: Chest pain Consent: Per the patient Procedure: The patient underwent pharmacologic (Regadenoson) evaluation with a peak heart rate of 91 beats per minute (57%predicted maximal heart rate) and a peak blood pressure of 170/96 mmHg. The baseline ECG demonstrated normal sinus rhythm. EKG during lexiscan infusion revealed no significant ischemic changes. EKG post infusion revealed no significant ischemic changes [There were no cardiac dysrhythmias pretest, during pharmacologic infusion, or recovery]. [There was no complaint of chest discomfort during pharmacologic infusion or recovery]. The examination was discontinued secondary to completion of protocol. Impression: 1. Lexiscan stress test test is negative for Lexiscan infusion induced EKG changes of ischemia. 2. Lexiscan stress test test is negative for Lexiscan infusion induced chest pain. 3. Results of the nuclear portion of the test is as below Myocardial perfusion imaging study: Technique: The patient was injected with 14.8 millicuries of technetium 99m Cardiolite and subsequently rest SPECT Cardiolite nuclear imaging was obtained in the horizontal long, vertical long, and short axis views. The patient underwent pharmacologic (Regadenoson) evaluation. Please see above for details. The patient was injected with 44.4 millicuries of technetium 99m Cardiolite and subsequently stress SPECT Cardiolite nuclear imaging was obtained in the horizontal long, vertical long, and short axis views. A gated Cardiolite study at peak stress was obtained. Interpretation: Rest and stress SPECT Cardiolite nuclear imaging status post realignment, normalization, and attenuation correction demonstrate normal myocardial radioisotope uptake. Gated images reveal no significant regional wall motion abnormalities. The reported LVEF is [62]%. Impression: 1. There is no evidence of significant ischemia or infarction. 2. Estimated ejection fraction is 62%. Operations: None Procedures: Nuclear stress test Summary of Care Provided: Per HPI: The patient is a 59 year old M with PMH as below who presents to the hospital with with a one-month history of chest pain, has had a couple of episodes where he is felt some slight chest pain that resolved fairly quickly however in the last 5 days he had an episode of viselike chest pressure when he went to his PCPs office. He was a new patient there and had an EKG, and he relates that the physician commented well but did not express anything about what his EKG was at the time. His current EKG is unremarkable and does not show any ischemic changes, his heart rate is 54 however he did start metoprolol and Norvasc from his PCP. He says the pain is over his left upper chest and says it is sharp. It does radiate into his neck and it is worse with arm movement. He has no some shortness of breath and lightheadedness and that it is worse with exertion. He had gone to his PCP who asked him to have a carotid ultrasound of his neck which did show 50 to 69% stenosis in his right carotid artery but there is also what was felt to be a mobile plaque. Therefore he also was referred to the hospital to get a CTA of his head and neck. The CTA of the head and neck confirmed the stenosis and that there is a filling defect at the bifurcation of the right carotid artery. Hospital Course: 1. Chest pain/mobile plaque of the right carotid bifurcation/HTN/morbid [id number] male presented with chest pain over the last month that has been steadily worsening. He was sent in after he had a carotid ultrasound that demonstrated a possible mobile plaque at the bifurcation of the right carotid artery. He underwent CTA which demonstrated the plaque and the case was discussed with the vascular surgeon Dr. Loving who recommended aspirin and Plavix as well as starting a statin. He underwent serial troponins which were all normal and had a stress test this morning which was unremarkable and did not demonstrate any signs of ischemia. He will need to follow-up with his primary care doctor to monitor blood pressure and will continue on his Norvasc and his metoprolol which was recently started therefore no changes were made to his blood pressure medication on discharge. He will also continue with his aspirin and Plavix as well as his Lipitor, and will follow up with Dr. Loving as an outpatient. The plan for discharge was discussed and he expressed understanding with the risk and benefits of going home and he would like to go home today. His chest pain has resolved. He also had extensive counseling for diet weight loss secondary to his morbid obesity and his family history of carotid artery stenosis as well as strokes. 2. Bipolar disorder is a chronic illness which complicates his care. His home medications were continued where appropriate Patient Problems: Active and Suspected Problems (Last Updated 08/07/20 @ 17:16 by Bridget Gordon) Stenosis of right carotid artery (Acute) Shortness of breath (Acute) Chest pain (Acute) - Physical Exam Vitals/I&O's: Vital Signs Temp Pulse Resp BP Pulse Ox 97.8 F 49 L 14 162/82 H 97 08/09/20 12:08 08/09/20 14:44 08/09/20 12:08 08/09/20 12:11 08/09/20 12:08 Oxygen Delivery Method Room Air Weight: 269 lb 2.951 oz Body Mass Index (BMI) 35.6 Intake and Output for Last 24 Hours 08/07/20 08/08/20 08/09/20 23:59 23:59 23:59 Intake Total 960 / 960 540 / 540 Balance 960 / 960 540 / 540 General: Alert, Oriented x3, Cooperative, No apparent distress HEENT: Atraumatic, PERRLA, EOMI, Normocephalic Oral: Moist Mucosa Neck: Supple, No JVD Lungs: Clear to auscultation, Normal air movement, No rhonchi, No wheeze, No rales Cardiovascular: Regular rate, Regular Rhythm, Normal S1, Normal S2, No murmurs Abdomen: Soft, Non Tender, Non-Distended, No Hepato-splenomegaly, Obese Extremities: No edema, Capillary Refill Less than 3 Seconds Skin: No rashes, No breakdown Neurological: Neuro grossly intact, Sensory exam intact to light touch and pain Psych/Mental Status: Normal Affect, Appropriate Laboratory Results 08/08/20 17:15: Troponin I < 0.015 08/09/20 06:12: WBC 10.9, RBC 4.92, Hgb 14.9, Hct 43.3, MCV 88.0, MCH 30.3, MCHC 34.4, RDW Std Deviation 39.8, RDW Coeff of Erin 12.4, Plt Count 207, MPV 9.6, Immature Gran % (Auto) 0.400, Neut % (Auto) 58.6, Lymph % (Auto) 29.1, [place] % (Auto) 8.6, Eos % (Auto) 2.3, Baso % (Auto) 1.0, Absolute Neuts (auto) 6.4, Absolute Lymphs (auto) 3.17, Nucleated RBC % 0 08/09/20 06:12: Sodium 138, Potassium 3.8, Chloride 105, Carbon Dioxide 28.0, Anion Gap 5, BUN 14, Creatinine 0.89, Estim Creat Clear Calc 95.67, Est GFR (MDRD) Af Amer 111, Est GFR (MDRD) Non-Af 92, BUN/Creatinine Ratio 15.7, Glucose 134 H, Calcium 8.8, Triglycerides 232 H, Cholesterol 169, LDL Cholesterol 89, VLDL Cholesterol 46 H, HDL Cholesterol 34 L Current Medications Amlodipine Besylate (Norvasc) 10 mg PO DAILY [facility] Last Admin: 08/09/20 08:24 Dose: 10 mg Documented by: Aspirin (Aspirin, Baby) 81 mg PO DAILY@0800 [facility] Last Admin: 08/09/20 06:12 Dose: 81 mg Documented by: Atorvastatin Calcium (Lipitor) 40 mg PO QHS [facility] Last Admin: 08/08/20 21:50 Dose: 40 mg Documented by: Clopidogrel Bisulfate (Plavix) 75 mg PO DAILY [facility] Last Admin: 08/09/20 06:12 Dose: 75 mg Documented by: Bourbon Carbonate (Bourbon Carbonate) 600 mg PO BID [facility] Last Admin: 08/09/20 12:11 Dose: 600 mg Documented by: Melatonin (Melatonin) 3 mg PO QHS PRN PRN PRN Reason: INSOMNIA Metoprolol Succinate (Toprol Xl (Beta Rajani)) 50 mg PO DAILY [facility] Last Admin: 08/09/20 12:11 Dose: 50 mg Documented by: Nitroglycerin (Nitrostat) 0.4 mg SUBLINGUAL Q5M PRN PRN Reason: CARDIAC/CHEST PAIN Ondansetron HCl (Zofran) 4 mg IV Q8H PRN PRN PRN Reason: NAUSEA/VOMITING Sodium Chloride () 10 - 40 ml IV UD PRN PRN Reason: SALINE FLUSH Trazodone HCl (Desyrel) 100 mg PO QHS PRN PRN PRN Reason: sleep Last Admin: 08/08/20 23:18 Dose: 100 mg Documented by: Discharge Activity: Return to Normal Activity Call your doctor if you observe: Fever of 101 or Higher, Shortness of breath, Dizziness, Fainting spells, Swelling in the ankles, Chest pain, Increased palpitations (irregular heartbeat) Home Medications: Medications to take at Discharge amlodipine 10 mg tablet 10 mg PO DAILY 08/07/20 lithium carbonate 300 mg capsule 600 mg PO BID cap 08/07/20 metoprolol succinate 50 mg tablet,extended release 24 hr 50 mg PO DAILY 08/07/20 trazodone 100 mg tablet 1 - 2 mg PO QHS tab 08/07/20 Aspirin [Aspirin, Baby] 81 mg PO DAILY@0800 #30 tab.chew 08/09/20 Atorvastatin Calcium [Lipitor] 40 mg PO QHS #30 tab 08/09/20 Clopidogrel Bisulfate [Plavix] 75 mg PO DAILY #30 tab 08/09/20 Following Prescriptions Were Given to Patient: Aspirin [Aspirin, Baby] 81 mg PO DAILY@0800 #30 tab.chew Transmission Status: Sent to [facility] Atorvastatin Calcium [Lipitor] 40 mg PO QHS #30 tab Transmission Status: Sent to [facility] Clopidogrel Bisulfate [Plavix] 75 mg PO DAILY #30 tab Transmission Status: Sent to [facility] Primary Care Physician: Derrell Salmeron MD [Primary Care Provider] - Please follow up with your Primary Care Physician in: 3-5 days Please Follow Up With: Souleymane Loving MD When: 2-4 weeks Disposition: Home Minutes spent on discharge:: 35 Patient Condition:: Stable Medical Necessity - Tobacco Use Smoking Status: Never smoker Tobacco Use: Non-smoker Meaningful Use Info Meaningful Use Diagnoses (Choose all that apply): None applicable OBSV E&M: 85527 Observation care discharge
== END 2020-08-09 15:22 | disposition home or self-care (01) ==
LOC: ED 13:01 → PCU 13:06
PROVIDERS: Admitting Provider Family Medicine; Emergency Provider Emergency Medicine; PCP Family Medicine; Visit Provider Family Medicine
DX: R07.89 Other chest pain (principal); R06.02 Shortness of breath; R42 Dizziness and giddiness; I65.21 Occlusion and stenosis of right carotid artery; F31.9 Bipolar disorder, unspecified; I10 Essential (primary) hypertension; M19.90 Unspecified osteoarthritis, unspecified site; Z79.899 Other long term (current) drug therapy; E66.9 Obesity, unspecified; Z68.35 Body mass index [BMI] 35.0-35.9, adult
CPT/HCPCS: 36415; 70496; 70498; 71045; 78452; 80048; 80061; 84484; 85025; 85379; 85610; 85730; 93005; 93017; 99218; 99285; A9500; Q9967; A4216; G0378; J2785

== ENCOUNTER → 2020-08-22 12:46 | Outpatient (CLI) | payer OTHER, SELFPAY ==
[2020-08-08 14:37] VITALS: BMI 35.6
--- NOTE | 2020-08-22 12:47 | ECHOD_ITS ---
Reason For Study: CHEST PAIN Procedure This was a 2D Doppler, Color Flow transthoracic echocardiogram. Exam performed in department. Left Ventricle Normal LV size. Left ventricular systolic function is normal. The estimated ejection fraction is 60 %. Stage 2 diastolic dysfunction. No regional wall motion abnormalities noted. Right Ventricle Normal RV size. Normal systolic function. Atria The left atrium is mildly enlarged. Normal right atrium. Mitral Valve Normal mitral valve. Tricuspid Valve Normal tricuspid valve. Aortic Valve Trisinus/trileaflet aortic valve. Mild focal aortic valve calcification. Pulmonic Valve Normal pulmonic valve. Great Vessels Normal aortic root. The pulmonary artery is normal size. Normal inferior vena cava. Pericardium/Pleural No pericardial effusion. Medication 22 gauge I.V. with prn adaptor inserted into right arm. Diluted definity 4..0ml given slow IV push to enhance endocardial definition. MMode/2D Measurements & Calculations LVIDd: 5.7 cm IVSd: 1.2 cm Ao root diam: 3.7 cm LVIDs: 4.1 cm LVPWd: 1.0 cm RVDd: 4.1 cm FS: 27.5 % LAV(MOD-bp): 83.5 ml LVAd ap4: 43.6 cm2 SV(MOD-sp4): 97.4 ml LAV(MOD-bp) Indexed: 34.4 ml/m2 EDV(MOD-sp4): 159.7 ml LAV(MOD-sp2): 84.1 ml EDV(sp4-el): 165.5 ml LAV(MOD-sp4): 70.5 ml LVAs ap4: 23.1 cm2 ESV(MOD-sp4): 62.3 ml ESV(sp4-el): 65.3 ml EF(MOD-sp4): 61.0 % EF(sp4-el): 60.5 % SV(sp4-el): 100.1 ml LA A4 area: 24.3 cm2 LA dimension(2D): 4.5 cm RA A4 area: 20.5 cm2 Time Measurements MV dec time: 0.21 sec Doppler Measurements & Calculations MV E max dmitry: 110.3 cm/sec Lat Peak E' Dmitry: 9.2 cm/sec Med Peak E' Dmitry: 8.2 cm/sec MV A max dmitry: 83.1 cm/sec E/E' lat: 12.0 E/E' med: 13.5 MV E/A: 1.3 Ao V2 max: 190.1 cm/sec LV V1 max: 135.3 cm/sec Ao max P.5 mmHg LV V1 max P.3 mmHg Interpretation Summary Normal LV size. Left ventricular systolic function is normal. The estimated ejection fraction is 60 %. Stage 2 diastolic dysfunction. Contrast injection was performed. Ordering Physician: Derrell Salmeron Referring Physician: Derrell Salmeron Performed By: Kristen Mishra, MORGAN, RVT
== END ==
PROVIDERS: PCP Family Medicine; Referring Provider Family Medicine; Visit Provider Family Medicine
DX: R06.02 Shortness of breath (principal)
CPT/HCPCS: 93306; Q9957; A4216; C8929

== ENCOUNTER → 2020-09-07 08:16 | Outpatient (CLI) | payer OTHER, SELFPAY ==
[2020-08-08 14:37] VITALS: BMI 35.6
[2020-09-07 10:33] LABS: PSA,Total - Annual Screen 3.85 ng/mL (0.00-4.00)
== END ==
PROVIDERS: PCP Family Medicine; Referring Provider Family Medicine; Visit Provider Family Medicine
DX: Z80.42 Family history of malignant neoplasm of prostate (principal)
CPT/HCPCS: 36415; 84153; G0103

== ENCOUNTER → 2020-09-27 08:33 | Outpatient (CLI) | payer OTHER, SELFPAY ==
[2020-08-08 14:37] VITALS: BMI 35.6
[2020-09-27 10:18] LABS: Absolute Lymphocyte Count 2.03 X10^3/uL (0.83-4.51); Absolute Neutrophil Count 7.5 X10^3/uL (2.0-7.7); Basophil% 0.9 % (0-1); Eosinophils% 1.9 % (0-5); Hematocrit 40.7 % (40-54); Hemoglobin 13.7 g/dL (13.0-16.5); Lymphocyte # 2.03 X10^3/ul (4.0); Lymphocyte % 19.1 % (19-41); Mean Corp Hgb Conc 33.7 g/dL (32-36); Mean Corpuscular Hgb 29.2 pg (27.0-32.0); Mean Corpuscular Volume 86.8 fL (80-94); Mean Platelet Vol. 10.4 fl (6.2-12.0); Monocyte# 0.75 X10^3/uL; NRBC Flagged by Analyzer 0 % (0-5); Neutrophil # 7.52 X10^3/uL (2.7-7.7); Neutrophil % 70.7 % (47-70); Platelet Count 267 K/mm3 (150-450); RBC Distribution Width CV 12.8 % (11.6-14.6); Red Blood Count 4.69 M/mm3 (4.6-6.2); White Blood Count 10.6 K/mm3 (4.4-11.0)
[2020-09-27 10:49] LABS: ALB/GLOB Ratio 1.5 RATIO (0.9-2.4); AST(SGOT) 24 U/L (15-37); Alanine Aminotransfer ALT/SGPT 37 U/L (16-61); Albumin, Serum 3.9 g/dL (3.2-5.0); Alkaline Phosphatase 59 U/L (45-117); Anion Gap 5 (5-15); BUN 13 mg/dL (7-18); BUN/Creat Ratio 13.7 RATIO (10-20); Calcium,Total 8.6 mg/dL (8.5-10.1); Chloride 106 mmol/L (98-107); Cholesterol 86 mg/dL (200); Creatinine, Serum 0.95 mg/dL (0.70-1.30); EST Glomerular Filtration Rate 85 mL/min (>60); Est Glom Filt Rate - Afr Amer 103 mL/min (>60); Globulin 2.6 g/dL (2.2-4.2); Glucose 131 mg/dL (74-106); High Density Lipoprotein 37 mg/dL; Potassium 3.7 mmol/L (3.5-5.1); Protein, Total 6.5 g/dL (6.4-8.2); Sodium Level 141 mmol/L (136-145); Triglycerides 109 mg/dL; Very Low Density Lipoprotein 22 mg/dL (5-40)
[2020-09-27 13:51] LABS: Vitamin B12 367 pg/mL (211-911)
[2020-09-27 14:49] LABS: Hemoglobin A1c 5.9 % (3.8-5.6)
[2020-10-02 09:33] LABS: Vitamin B1, Thiamine 147.3 nmol/L (66.5-200.0)
== END ==
PROVIDERS: PCP Family Medicine; Referring Provider Family Medicine; Visit Provider Family Medicine
DX: G62.9 Polyneuropathy, unspecified (principal); R73.02 Impaired glucose tolerance (oral); I65.29 Occlusion and stenosis of unspecified carotid artery; I10 Essential (primary) hypertension
CPT/HCPCS: 36415; 80053; 80061; 80178; 82607; 83036; 84425; 85025

== ENCOUNTER → 2020-10-23 08:30 | Outpatient (CLI) | payer OTHER, SELFPAY ==
[2020-08-08 14:37] VITALS: BMI 35.6
--- NOTE | 2020-10-23 08:35 | CDU_ITS ---
Reason For Study: Carotid stenosis Rt. Velocities/BP Lt. Velocities/BP Prox CCA 99.2/17 cm/sec. Prox CCA 130.2/26.1 cm/sec. Mid CCA 82.7/17 cm/sec. Mid CCA 93.7/20 cm/sec. Dist CCA 65.5/11.4 cm/sec. Dist CCA 82.7/21.2 cm/sec. Prox ICA 80.2/22.5 cm/sec. Prox ICA 64.2/17.6 cm/sec. Mid ICA 87.6/24.9 cm/sec. Mid ICA 79/23.7 cm/sec. Dist ICA 103.5/31.1 cm/sec. Dist ICA 101.1/31.1 cm/sec. Rt. ICA/CCA = 1.3. Lt. ICA/CCA = 1.1. Prox ECA 163/9.4 cm/sec. Prox ECA 108.4/10.2 cm/sec. Rt. Vert. 54.2/12.4 cm/sec. Lt. Vert. 44.7/10.7 cm/sec. Right Extracranial There is homogeneous, smooth atherosclerotic plaque noted in the right common carotid artery. There is heterogeneous, irregular atherosclerotic plaque noted in the right internal carotid artery. There is heterogeneous, irregular atherosclerotic plaque noted in the right external carotid artery. Antegrade flow is noted in the right vertebral artery. There is heterogeneous, irregular atherosclerotic plaque noted in the right bulb. Mobile plaque noted in the right bulb measuring 0.24 x 0.22 cm. Left Extracranial There is homogeneous, smooth atherosclerotic plaque noted in the left common carotid artery. There is homogeneous, smooth atherosclerotic plaque noted in the left internal carotid artery. There is intimal thickening but no significant atherosclerotic plaque noted in the left external carotid artery. Antegrade flow is noted in the left vertebral artery. Procedure Carotid Duplex 67171. This is a Carotid Duplex examination using B-mode, color flow and specral Doppler. Exam performed in department. Interpretation Summary Mild (<50%) stenosis right extracranial internal carotid. Mild (<50%) stenosis left extracranial internal carotid. Flow within the vertebral arteries is antegrade bilaterally. Ordering Physician: Souleymane Loving Referring Physician: Derrell Salmeron Performed By: Helena Helton RVT
== END ==
PROVIDERS: PCP Family Medicine; Referring Provider Surgery Vascular Surgery; Visit Provider Surgery Vascular Surgery
DX: I65.21 Occlusion and stenosis of right carotid artery (principal)
CPT/HCPCS: 93880

== ENCOUNTER → 2020-10-29 08:05 | Outpatient (CLI) | payer OTHER, SELFPAY ==
[2020-08-08 14:37] VITALS: BMI 35.6
[2020-10-29 10:52] LABS: Absolute Lymphocyte Count 2.41 X10^3/uL (0.83-4.51); Absolute Neutrophil Count 7.1 X10^3/uL (2.0-7.7); Basophil% 0.9 % (0-1); Eosinophil# 0.28 X10^3/uL; Eosinophils% 2.6 % (0-5); Hematocrit 42.8 % (40-54); Hemoglobin 14.1 g/dL (13.0-16.5); Lymphocyte # 2.41 X10^3/ul (4.0); Lymphocyte % 22.1 % (19-41); Mean Corp Hgb Conc 32.9 g/dL (32-36); Mean Corpuscular Hgb 29.8 pg (27.0-32.0); Mean Corpuscular Volume 90.5 fL (80-94); Mean Platelet Vol. 11.1 fl (6.2-12.0); Monocyte# 0.96 X10^3/uL; Monocyte% 8.8 % (0-10); NRBC Flagged by Analyzer 0 % (0-5); Neutrophil # 7.11 X10^3/uL (2.7-7.7); Neutrophil % 65.3 % (47-70); Platelet Count 261 K/mm3 (150-450); RBC Distribution Width CV 12.9 % (11.6-14.6); RBC Distribution Width SD 42.4 fl (35.1-43.9); Red Blood Count 4.73 M/mm3 (4.6-6.2); White Blood Count 10.9 K/mm3 (4.4-11.0)
[2020-10-29 11:05] LABS: ALB/GLOB Ratio 1.3 RATIO (0.9-2.4); AST(SGOT) 17 U/L (15-37); Alanine Aminotransfer ALT/SGPT 43 U/L (16-61); Albumin, Serum 3.7 g/dL (3.2-5.0); Alkaline Phosphatase 54 U/L (45-117); Anion Gap 5 (5-15); BUN 14 mg/dL (7-18); BUN/Creat Ratio 14.7 RATIO (10-20); Calcium,Total 8.8 mg/dL (8.5-10.1); Chloride 108 mmol/L (98-107); Creatinine, Serum 0.96 mg/dL (0.70-1.30); EST Glomerular Filtration Rate 85 mL/min (>60); Est Glom Filt Rate - Afr Amer 103 mL/min (>60); Globulin 2.9 g/dL (2.2-4.2); Glucose 134 mg/dL (74-106); Potassium 3.5 mmol/L (3.5-5.1); Protein, Total 6.6 g/dL (6.4-8.2); Sodium Level 142 mmol/L (136-145)
[2020-10-29 11:07] LABS: Vitamin B12 369 pg/mL (211-911)
[2020-10-29 11:24] LABS: Hemoglobin A1c 5.4 % (3.8-5.6)
== END ==
PROVIDERS: PCP Family Medicine; Referring Provider Family Medicine; Visit Provider Family Medicine
DX: I10 Essential (primary) hypertension (principal); R73.02 Impaired glucose tolerance (oral); G62.9 Polyneuropathy, unspecified
CPT/HCPCS: 36415; 80053; 82607; 83036; 85025

== ENCOUNTER → 2021-02-22 09:02 | Outpatient (CLI) | payer BC, SELFPAY ==
[2020-08-08 14:37] VITALS: BMI 35.6
--- NOTE | 2021-02-22 09:08 | RAD_ITS ---
STUDY: X-RAY - RIGHT KNEE REASON FOR EXAM: Bilateral knee pain. TECHNIQUE: 3 view(s) of the knee. COMPARISON: Radiographs 01/12/2019. FINDINGS: Normal visualized distal femur. Normal visualized proximal tibia and fibula. Normal proximal tibiofibular articulation. Normal medial femorotibial compartment. There is interval development of mild joint space narrowing of the lateral femorotibial compartment. There are small marginal osteophytes of the patella without joint space narrowing of the patellofemoral articulation. There is a small joint effusion. RAD/Knee 3 Views IMPRESSION: Mild arthrosis of the lateral femorotibial compartment. Small joint effusion. Electronically Signed: Edinson Beltran MD at 11:23 EDT Tel , Service support ,
--- NOTE | 2021-02-22 09:25 | RAD_ITS ---
STUDY: X-RAY - LEFT KNEE REASON FOR EXAM: Bilateral knee pain. TECHNIQUE: 3 view(s) of the knee. COMPARISON: Radiographs 01/12/2019. FINDINGS: Normal visualized distal femur. There is a small metallic foreign body in the medial tibial plateau as on the prior study. Normal proximal tibiofibular articulation. There is interval development of moderate joint space narrowing of the medial femorotibial compartment. Normal lateral femorotibial compartment. There are small marginal osteophytes of the patella without joint space narrowing of the patellofemoral articulation. The soft tissue structures are unremarkable. RAD/Knee 3 Views IMPRESSION: Arthrosis of the medial femorotibial compartment. Metallic foreign body in the medial tibial plateau. Electronically Signed: Edinson Beltran MD at 10:54 EDT Tel , Service support ,
[2021-02-22 10:11] LABS: Absolute Neutrophil Count 7.2 X10^3/uL (2.0-7.7); Basophil# 0.11 X10^3/uL; Basophil% 1.1 % (0-1); Eosinophil# 0.14 X10^3/uL; Eosinophils% 1.4 % (0-5); Hematocrit 41.8 % (40-54); Hemoglobin 13.9 g/dL (13.0-16.5); Lymphocyte % 18.2 % (19-41); Mean Corp Hgb Conc 33.3 g/dL (32-36); Mean Corpuscular Hgb 29.4 pg (27.0-32.0); Mean Corpuscular Volume 88.4 fL (80-94); Mean Platelet Vol. 10.6 fl (6.2-12.0); Monocyte# 0.62 X10^3/uL; Monocyte% 6.3 % (0-10); NRBC Flagged by Analyzer 0 % (0-5); Neutrophil # 7.18 X10^3/uL (2.7-7.7); Neutrophil % 72.7 % (47-70); Platelet Count 219 K/mm3 (150-450); RBC Distribution Width CV 13.2 % (11.6-14.6); Red Blood Count 4.73 M/mm3 (4.6-6.2); White Blood Count 9.9 K/mm3 (4.4-11.0)
[2021-02-22 10:37] LABS: ALB/GLOB Ratio 1.4 RATIO (0.9-2.4); AST(SGOT) 30 U/L (15-37); Alanine Aminotransfer ALT/SGPT 52 U/L (16-61); Albumin, Serum 3.9 g/dL (3.2-5.0); Alkaline Phosphatase 53 U/L (45-117); Anion Gap 6 (5-15); BUN 17 mg/dL (7-18); BUN/Creat Ratio 16.7 RATIO (10-20); Calcium,Total 8.7 mg/dL (8.5-10.1); Chloride 108 mmol/L (98-107); Cholesterol 110 mg/dL (200); Creatinine, Serum 1.02 mg/dL (0.70-1.30); EST Glomerular Filtration Rate 79 mL/min (>60); Est Glom Filt Rate - Afr Amer 95 mL/min (>60); Globulin 2.8 g/dL (2.2-4.2); Glucose 137 mg/dL (74-106); High Density Lipoprotein 56 mg/dL; Potassium 3.9 mmol/L (3.5-5.1); Protein, Total 6.7 g/dL (6.4-8.2); Sodium Level 141 mmol/L (136-145); Triglycerides 54 mg/dL; Very Low Density Lipoprotein 11 mg/dL (5-40)
[2021-02-22 10:40] LABS: Hemoglobin A1c 5.5 % (3.8-5.6)
== END ==
PROVIDERS: PCP Family Medicine; Referring Provider Family Medicine; Visit Provider Family Medicine
DX: M25.561 Pain in right knee (principal); M25.562 Pain in left knee; I10 Essential (primary) hypertension; R73.02 Impaired glucose tolerance (oral)
CPT/HCPCS: 36415; 73562; 80053; 80061; 83036; 85025

== ENCOUNTER → 2021-06-25 08:41 | Outpatient (CLI) | payer BC, SELFPAY ==
[2021-06-18 13:57] VITALS: BMI 35.6
[2021-06-25 10:08] LABS: Absolute Lymphocyte Count 2.11 X10^3/uL (0.83-4.51); Absolute Neutrophil Count 5.3 X10^3/uL (2.0-7.7); Basophil% 1.2 % (0-1); Eosinophil# 0.23 X10^3/uL; Eosinophils% 2.7 % (0-5); Hematocrit 41.9 % (40-54); Hemoglobin 14.3 g/dL (13.0-16.5); Lymphocyte # 2.11 X10^3/ul (0.83-4.51); Lymphocyte % 24.5 % (19-41); Mean Corp Hgb Conc 34.1 g/dL (32-36); Mean Corpuscular Hgb 30.3 pg (27.0-32.0); Mean Corpuscular Volume 88.8 fL (80-94); Mean Platelet Vol. 10.4 fl (6.2-12.0); Monocyte# 0.76 X10^3/uL; Monocyte% 8.8 % (0-10); NRBC Flagged by Analyzer 0 % (0-5); Neutrophil # 5.34 X10^3/uL (2.7-7.7); Neutrophil % 61.9 % (47-70); Platelet Count 209 K/mm3 (150-450); RBC Distribution Width CV 12.6 % (11.6-14.6); Red Blood Count 4.72 M/mm3 (4.6-6.2); White Blood Count 8.6 K/mm3 (4.4-11.0)
[2021-06-25 10:24] LABS: Hemoglobin A1c 5.6 % (3.8-5.6)
[2021-06-25 10:56] LABS: ALB/GLOB Ratio 1.3 RATIO (0.9-2.4); AST(SGOT) 26 U/L (15-37); Alanine Aminotransfer ALT/SGPT 44 U/L (16-61); Albumin, Serum 3.8 g/dL (3.2-5.0); Alkaline Phosphatase 50 U/L (45-117); Anion Gap 6 (5-15); BUN 13 mg/dL (7-18); BUN/Creat Ratio 15.7 RATIO (10-20); Calcium,Total 8.7 mg/dL (8.5-10.1); Chloride 107 mmol/L (98-107); Creatinine, Serum 0.83 mg/dL (0.70-1.30); EST Glomerular Filtration Rate 100 mL/min (>60); Est Glom Filt Rate - Afr Amer 121 mL/min (>60); Glucose 139 mg/dL (74-106); Protein, Total 6.8 g/dL (6.4-8.2); Sodium Level 139 mmol/L (136-145)
== END ==
PROVIDERS: PCP Family Medicine; Referring Provider Family Medicine; Visit Provider Family Medicine
DX: I10 Essential (primary) hypertension (principal); R73.02 Impaired glucose tolerance (oral)
CPT/HCPCS: 36415; 80053; 83036; 85025

== ENCOUNTER → 2021-08-13 12:21 | Outpatient (CLI) | payer BC, SELFPAY | PROVIDERS: PCP Family Medicine; Visit Provider Physician Assistant Surgical | DX: Z11.52 Encounter for screening for COVID-19 (principal) | CPT/HCPCS: 87635; U0005; U0003 ==

== ENCOUNTER → 2021-08-20 09:35 | Outpatient (CLI) | payer BC, SELFPAY ==
--- NOTE | 2021-08-20 09:36 | RAD_ITS ---
STUDY: X-RAY CHEST REASON FOR EXAM: Male, 60 years old. Cough TECHNIQUE: PA and lateral views of the chest. COMPARISON: Comparison is made with prior study dated 08/08/2020. FINDINGS: There is hyperinflation of the lungs consistent with chronic obstructive lung disease (COPD). There is no demonstrated pleural abnormality. Normal size heart. Normal mediastinum and cas. Normal visualized pulmonary arteries. Normal visualized aortic arch and descending thoracic aorta. There are diffuse degenerative changes of the visualized thoracic spine. Normal visualized ribs, clavicles, and shoulders. There is no demonstrated abnormality of the visualized soft tissue structures of the upper abdomen. RAD/Chest PA and Lateral IMPRESSION: Hyperinflation. No acute abnormality is seen. Electronically Signed: Sha Quinn MD at 10:04 EDT , Service support ,
== END ==
PROVIDERS: PCP Family Medicine; Referring Provider Physician Assistant Surgical; Visit Provider Physician Assistant Surgical
DX: Z20.828 Contact with and (suspected) exposure to other viral communicable diseases (principal)
CPT/HCPCS: 71046

== ENCOUNTER → 2021-08-30 10:01 | Outpatient (CLI) | payer BC, SELFPAY ==
--- NOTE | 2021-08-30 10:04 | MRI_ITS ---
HISTORY: Asymmetric hearing loss, bilateral tinnitus. TECHNIQUE: Multiplanar and multisequence MR images of the brain were obtained with thin section sequences of the posterior cranial fossa before and after the administration of IV contrast. IV Contrast dosage and agent: 23 cc dotarem. # of images incl. paperwork: [phone] . COMPARISON: CT 08/08/2020. FINDINGS: POSTERIOR FOSSA/IAC: No cerebellopontine angle mass. Visualized portions of the fifth, seventh, and eighth cranial nerves unremarkable without enhancing mass. MASTOID AIR CELLS: Clear. BRAIN PARENCHYMA: Minimal chronic small vessel ischemic gliosis. Normal appearance of the midline structures. No abnormal focus of restricted diffusion. No acute intracranial hemorrhage. CSF SPACES: Mild generalized volume loss. No midline shift or other significant mass effect. No extra-axial fluid collection. VASCULAR SYSTEM: Major intracranial flow-voids maintained. ORBITS: Symmetric in appearance. PARANASAL SINUSES: Clear. MRI/Brain W/WO Contrast IMPRESSION: No evidence for enhancing intracranial mass, acute infarct, or acute intracranial hemorrhage. Unremarkable examination of the internal auditory canals. Mild chronic involutional changes. at 1701 Reported and signed by: Sadaf Glasgow MD Electronically Signed: Sadaf Glasgow MD at 17:00 EDT Tel , Service support ,
[2021-08-30 10:30] LABS: CREATININE FINGERSTICK 0.7 mg/dL (0.70-1.30); EGFR FINGERSTICK > 60.0000 mL/min (>60)
== END ==
PROVIDERS: PCP Family Medicine; Referring Provider Otolaryngology; Visit Provider Otolaryngology
DX: H90.3 Sensorineural hearing loss, bilateral (principal)
CPT/HCPCS: 70553; A9575

== ENCOUNTER → 2021-09-04 08:40 | Outpatient (CLI) | payer BC, SELFPAY ==
--- NOTE | 2021-09-04 08:48 | CDU_ITS ---
Reason For Study: THROMBUS Rt. Velocities/BP Lt. Velocities/BP Prox CCA 141.7/13.9 cm/sec. Prox CCA 126.6/33.4 cm/sec. Mid CCA 92.8/13.0 cm/sec. Mid CCA 118.5/18.1 cm/sec. Dist CCA 78.1/16.7 cm/sec. Dist CCA 102.1/21.7 cm/sec. Prox ICA 80.9/17.6 cm/sec. Prox ICA 114.9/29.0 cm/sec. Mid ICA 79.0/18.5 cm/sec. Mid ICA 93.0/36.3 cm/sec. Dist ICA 100.3/30.0 cm/sec. Dist ICA 116.7/32.7 cm/sec. Rt. ICA/CCA = 100.0/92.8=1.1. Lt. ICA/CCA = 116.7/118.5=1.0. Prox ECA 185.7/21.1 cm/sec. Prox ECA 149.6/18.1 cm/sec. Rt. Vert. 51.6/12.8 cm/sec. Lt. Vert. 42.8/13.1 cm/sec. Right Extracranial There is homogeneous, smooth atherosclerotic plaque noted in the right common carotid artery. There is heterogeneous, irregular atherosclerotic plaque noted in the right internal carotid artery. There is heterogeneous, irregular atherosclerotic plaque noted in the right external carotid artery. Antegrade flow is noted in the right vertebral artery. There is heterogeneous, irregular atherosclerotic plaque noted in the right bulb. Mobile mass noted in the right bulb measuring 0.25cm x 0.25cm. Similar to previous carotid studies on 10/23/2020 & 08/08/2020. Left Extracranial There is homogeneous, smooth atherosclerotic plaque noted in the left common carotid artery. There is homogeneous, smooth atherosclerotic plaque noted in the left internal carotid artery. There is intimal thickening but no significant atherosclerotic plaque noted in the left external carotid artery. Antegrade flow is noted in the left vertebral artery. Procedure Carotid Duplex 19647. This is a Carotid Duplex examination using B-mode, color flow and specral Doppler. Exam performed in department. VL/Carotid Duplex Ultrasound Interpretation Summary Irregular plaque at the proximal right internal carotid artery with less than 5 0% stenosis. Less than 50% stenosis right external carotid artery Within the right carotid bulb there is a small 0.25 x 0.25 cm area suggesting a small mobile mass that was seen previously October 23, 2020 and August 08, 2020 Smooth plaque at the proximal left internal carotid artery with less than 50% s tenosis. Less than 50% stenosis left external carotid artery Patent and antegrade vertebral arteries bilaterally Ordering Physician: Derrell Salmeron Referring Physician: Derrell Salmeron Performed By: Sadia Larsen, MORGAN, RVT
== END ==
PROVIDERS: PCP Family Medicine; Referring Provider Family Medicine; Visit Provider Family Medicine
DX: I82.90 Acute embolism and thrombosis of unspecified vein (principal)
CPT/HCPCS: 93880

== ENCOUNTER → 2021-10-01 08:25 | Outpatient (CLI) | payer BC, SELFPAY ==
[2021-10-01 17:45] LABS: Absolute Lymphocyte Count 1.88 X10^3/uL (0.83-4.51); Absolute Neutrophil Count 6.9 X10^3/uL (2.0-7.7); Basophil# 0.12 X10^3/uL; Basophil% 1.2 % (0-1); Eosinophil# 0.08 X10^3/uL; Eosinophils% 0.8 % (0-5); Hemoglobin 14.2 g/dL (13.0-16.5); Lymphocyte # 1.88 X10^3/ul (0.83-4.51); Lymphocyte % 19.1 % (19-41); Mean Corp Hgb Conc 35.5 g/dL (32-36); Mean Corpuscular Hgb 30.8 pg (27.0-32.0); Mean Corpuscular Volume 86.8 fL (80-94); Mean Platelet Vol. 10.4 fl (6.2-12.0); Monocyte# 0.86 X10^3/uL; Monocyte% 8.7 % (0-10); NRBC Flagged by Analyzer 0 % (0-5); Neutrophil # 6.85 X10^3/uL (2.7-7.7); Neutrophil % 69.5 % (47-70); Platelet Count 242 K/mm3 (150-450); RBC Distribution Width CV 12.9 % (11.6-14.6); Red Blood Count 4.61 M/mm3 (4.6-6.2); White Blood Count 9.9 K/mm3 (4.4-11.0)
[2021-10-01 17:58] LABS: ALB/GLOB Ratio 1.1 RATIO (0.9-2.4); AST(SGOT) 38 U/L (15-37); Alanine Aminotransfer ALT/SGPT 51 U/L (16-61); Albumin, Serum 3.6 g/dL (3.2-5.0); Alkaline Phosphatase 59 U/L (45-117); Anion Gap 6 (5-15); BUN 11 mg/dL (7-18); BUN/Creat Ratio 12.7 RATIO (10-20); Calcium,Total 8.5 mg/dL (8.5-10.1); Chloride 102 mmol/L (98-107); Cholesterol 130 mg/dL (200); Creatinine, Serum 0.87 mg/dL (0.70-1.30); EST Glomerular Filtration Rate 95 mL/min (>60); Est Glom Filt Rate - Afr Amer 115 mL/min (>60); Globulin 3.3 g/dL (2.2-4.2); Glucose 201 mg/dL (74-106); High Density Lipoprotein 54 mg/dL; Potassium 3.6 mmol/L (3.5-5.1); Protein, Total 6.9 g/dL (6.4-8.2); Sodium Level 137 mmol/L (136-145); Triglycerides 179 mg/dL; Very Low Density Lipoprotein 36 mg/dL (5-40)
[2021-10-01 18:09] LABS: Hemoglobin A1c 5.9 % (3.8-5.6)
== END ==
PROVIDERS: PCP Family Medicine; Referring Provider Family Medicine; Visit Provider Family Medicine
DX: I10 Essential (primary) hypertension (principal)
CPT/HCPCS: 36415; 80053; 80061; 83036; 85025

== ENCOUNTER 2021-10-16 07:10 | Day surgery (SDC) | payer BC, SELFPAY ==
--- NOTE | 2021-10-11 12:15 | EKG12_ITS ---
Test Reason : PREOP Blood Pressure : / mmHG Vent. Rate : 057 BPM Atrial Rate : 057 BPM P-R Int : 162 ms QRS Dur : 090 ms QT Int : 414 ms P-R-T Axes : 046 008 054 degrees QTc Int : 402 ms Sinus bradycardia Low voltage QRS Borderline ECG Confirmed by DAVID GAGE, REGGIE ([id number]), non linear editor YOVANA ROSENBAUM ([id number]) on 10/14/2021 1:06:39 P M Referred By: Sven Fournier Confirmed By:DON HERNANDEZ MD
[2021-10-11 13:05] LABS: Hematocrit 37.4 % (40-54); Hemoglobin 13.4 g/dL (13.0-16.5); Mean Corp Hgb Conc 35.8 g/dL (32-36); Mean Corpuscular Hgb 30.9 pg (27.0-32.0); Mean Corpuscular Volume 86.4 fL (80-94); Mean Platelet Vol. 9.6 fl (6.2-12.0); Platelet Count 220 K/mm3 (150-450); RBC Distribution Width CV 12.6 % (11.6-14.6); RBC Distribution Width SD 39.7 fl (35.1-43.9); Red Blood Count 4.33 M/mm3 (4.6-6.2); White Blood Count 12.3 K/mm3 (4.4-11.0)
[2021-10-11 13:28] LABS: Anion Gap 8 (5-15); BUN 14 mg/dL (7-18); BUN/Creat Ratio 13.5 RATIO (10-20); Calcium,Total 8.5 mg/dL (8.5-10.1); Chloride 103 mmol/L (98-107); Creatinine, Serum 1.04 mg/dL (0.70-1.30); EST Glomerular Filtration Rate 77 mL/min (>60); Est Glom Filt Rate - Afr Amer 93 mL/min (>60); Glucose 202 mg/dL (74-106); Potassium 3.8 mmol/L (3.5-5.1); Sodium Level 138 mmol/L (136-145)
[2021-10-16] VITALS (7 sets, daily range): BP systolic 134–156; BP diastolic 73–101; PULSE 50–63; RESP 16–18; TEMP 36.2–36.6; O2SAT 92–100; BMI 36.0
[2021-10-16] MEDS: Lactated Ringers 1,000 ML 15 ML IV (07:52)
[2021-10-16] MEDS: Metoprolol(XL)Succ 50 MG Tablet PO (08:12)
--- NOTE | 2021-10-16 09:20 | PROS_PTH ---
PATIENT: NIKO BROWN LOC: [facility] – [place] U#:[id number] AGE/SX: 61/M ROOM: RE10/16/[address]: Dr. Sven Fournier MD : 1960 BED: DIS: 10/16/2021 SPEC #: [id number] RECD: 10/16/21 12:22 STATUS: KARINE MUKHERJEE #: [id number] SHONDA: 10/16/21 09:[address]: Sven Fournier DEPT: SURGICAL PATHOLOGY RECD BY: Jonny Joe ENTERED: 10/18/21 09:02 SP TYPE: TURP OTHR DR: MD Dr. Derrell Vazquez MD Tissues: Prostate, NOS Procedures: Surgery Specimen Level IV HEADER OPERATION: Cystoscopy, transurethral resection of the prostate PRE-OP DIAGNOSIS: Benign prostate hyperplasia TISSUE SUBMITTED: Prostate tissue MICROSCOPIC DIAGNOSIS Prostate tissue, TUR: Benign prostatic hyperplasia, glandular and stromal type. Focal chronic inflammation. SJ 10/21/21 MICROSCOPIC DESCRIPTION Slides are reviewed. GROSS DESCRIPTION Received is one container labeled with the patient's name and designated prostate tissue. The specimen consists of multiple irregular fragments of pink-medina, rubbery, soft tissue that in aggregate weigh 8.9 gm and measure in aggregate 3.0 x 3.0 x 1.0 cm. The entire specimen is submitted in nine cassettes. /ARPAN:dillon 10/18/21 TC:5 CPT: 89009
--- NOTE | 2021-10-16 10:00 | HP.PCM_ITS ---
HPI - General HPI Narrative NIKO BROWN, is a 61 M who presents for a TURP for BPH with obstruction. [facility] Medical History Acute bronchitis Alcohol use Arthritis Bipolar 1 disorder Bipolar disorder Cardiology follow-up encounter Carotid stenosis, bilateral Chest pain Essential hypertension High cholesterol History of echocardiogram History of heart attack History of stress test Hypertension Non-smoker Osteoarthritis of left knee Pharyngitis Prostate disease Seizures Shortness of breath Shoulder pain Wears glasses Home Medications amlodipine 10 mg tablet 10 mg PO DAILY 08/07/20 [History Last Taken Unknown] lithium carbonate 300 mg capsule 600 mg PO BID cap 08/07/20 [History Last Taken Unknown] metoprolol succinate 50 mg tablet,extended release 24 hr 50 mg PO DAILY 08/07/20 [History Last Taken Unknown] trazodone 100 mg tablet 1 - 2 mg PO QHS tab 08/07/20 [History Last Taken Unknown] atorvastatin 40 mg PO QHS #30 tab 08/09/20 [Rx Last Taken Unknown] gabapentin 100 mg capsule 100 mg PO TID 06/18/21 [History Last Taken Unknown] hydrochlorothiazide 25 mg tablet 25 mg PO DAILY 06/18/21 [History Last Taken Unknown] aspirin 81 mg PO DAILY 10/16/21 [History Last Taken 10/09/21] ciprofloxacin HCl [Cipro] 500 mg PO BID #14 tab 10/16/21 [Rx Last Taken Unknown] clopidogrel 75 mg PO DAILY 10/16/21 [History Last Taken 10/09/21] Allergy/AdvReac Type Severity Reaction Status Date / Time No Known Allergies Allergy Verified 10/16/21 07:26 Family History Father Myocardial infarction Hypertension Alcoholism Mother Cancer Diabetes Brother Heart disease Hypertension Alcoholism Cancer prostate Grandfather Myocardial infarction CVA (cerebral vascular accident) Carotid arterial disease Surgical History History of arthroscopy of knee History of bursectomy History of carpal tunnel release Social History Smoking Status: Never smoker alcohol intake: current Alcohol type: beer substance use type: does not use Vital Signs Vital Signs Vital Signs: 10/16/21 07:28 10/16/21 08:12 Temperature 97.4 F L Temperature Source Temporal Pulse Rate 56 L 56 L Respiratory Rate 16 Respiratory Pattern Normal Blood Pressure 134/101 H Blood Pressure Mean 112 Blood Pressure Source Monitor Blood Pressure Position Semi-Fowlers Blood Pressure Location Left Arm Pulse Ox 98 Oxygen Delivery Method Room Air Weight Weight: 124 kg Body Mass Index (BMI) 36.0 Results Lab / Micro Data Result Diagrams: 10/11/21 12:34 10/11/21 12:34
--- NOTE | 2021-10-16 10:01 | PCM.DC ---
Discharge Instructions Diet Discharge Diet: No restrictions Activity Discharge Activity: Return to Normal Activity and May Not Drive (while taking narcotic pain medications.) Dressing / Incision Call your doctor if you observe: Fever of 101 or Higher Follow Up Care Please Follow Up With: Sven Fournier MD When: Call [phone] for an appointment Test Results: Test results from this visit will be discussed in further detail at your follow-up appointment, if applicable. Discharge Plan Admission Primary Reason for Your Visit: TURP Attending Provider: Sven Fournier Primary Care Provider: Derrell Salmeron Consulting Providers: Domenic Tanner Discharge Orders/Prescriptions Prescriptions: New ciprofloxacin HCl [Cipro] 500 mg tablet 500 mg PO BID Qty: 14 RF: 0 Continued lithium carbonate 300 mg capsule 600 mg PO BID RF: 0 trazodone 100 mg tablet 1 - 2 mg PO QHS RF: 0 metoprolol succinate 50 mg tablet extended release 24 hr 50 mg PO DAILY RF: 0 amlodipine 10 mg tablet 10 mg PO DAILY RF: 0 hydrochlorothiazide 25 mg tablet 25 mg PO DAILY RF: 0 gabapentin 100 mg capsule 100 mg PO TID RF: 0 atorvastatin 40 MG tablet 40 mg PO QHS Qty: 30 RF: 0 aspirin 81 mg Tablet,Chewable 81 mg PO DAILY RF: 0 Hold Instructions: Resume on 10/23/21. Held clopidogrel 75 mg tablet 75 mg PO DAILY RF: 0 Hold Instructions: Resume on 10/30/21. Discontinued tamsulosin [Flomax] 0.4 mg capsule 0.4 mg PO DAILY RF: 0 Other Ambulatory Orders: 12 Lead EKG (Routine) Timeframe: [id number] Location: None Selected Ordered By: Dr. Domenic Tanner Referrals / Follow Up: Sven Fournier MD [STAFF PHYSICIAN] - Derrell Salmeron MD [Primary Care Provider] - Disposition Disposition (needs filled in before D/C Order can be placed): Home, Self Care
--- NOTE | 2021-10-16 11:09 | PCM.OPRPT ---
Report of Operation Date of Procedure: 10/16/21 Pre-Operative Diagnosis: bph with obstruction Post-Operative Diagnosis: same Surgery/Procedure Performed:: TURP Description of Surgical Findings:: In the preoperative setting I discussed with the patient how the surgery would be done with expect afterwards. We discussed how a prostate resection is done and we discussed the risk of the surgery including, bleeding, infection, retrograde ejaculation, changes with ejaculation or intercourse,. We discussed the possibility that the resection of the prostate may not alleviate his urinary symptoms. We discussed the small risk of developing scar tissue along the urethral channel and strictures. We also discussed the chance of the prostate could grow back and he may need further surgery or treatment in the future for prostate problems. Patient was taken back to the operating room, timeout procedure was performed, he was identified and marked and placed on the operating room table. He underwent general anesthesia. He was placed in dorsolithotomy position. Penis and testicles were prepped and draped in usual sterile fashion. Went into the bladder using the visual obturator with a resectoscope. Once inside the bladder identified the right and left ureteral orifice. I then identified the prostate and the anatomy of the prostate. I marked out the area of the sphincter and the verumontanum was identified. I then proceeded with the prostate resection first resected the median lobe. And then resected the right lobe of the prostate. Then to resect the left lobe of the prostate. I then resected the apical tissue of the prostate. This was a complete resection of all obstructive tissue to improve voiding and relieve obstruction. I then made sure that there was no injury to the sphincter or the verumontanum was still intact. At the end of the resection all the chips were Ellik out of the bladder. I then identified the left and right ureteral orifice and these were confirmed to be in good position and effluxing and not injured. The resectoscope was removed, a 22 Danish catheter was placed into the bladder on continuous irrigation. And the urine was fairly light pink color and draining normally. He was taken back to the PACU in good condition. CPT 13435 Surgeon: gretchen Type of Anesthesia: General Drains: 20 fr zepeda Admit VTE Documentation VTE Present on Admission: No VTE Mechan Device Prophylaxis: SCD's VTE Pharm Prophylaxis ordered?: No
== END 2021-10-16 13:03 | disposition home or self-care (01) ==
LOC: SDC 07:12 → AC 07:12
PROVIDERS: PCP Family Medicine; Referring Provider Urology; Visit Provider Urology
PROC: (CPT 52601; principal; 2021-10-16 09:10)
DX: N40.1 Benign prostatic hyperplasia with lower urinary tract symptoms (principal); N13.8 Other obstructive and reflux uropathy; F31.9 Bipolar disorder, unspecified; I10 Essential (primary) hypertension; I25.2 Old myocardial infarction; E78.00 Pure hypercholesterolemia, unspecified; Z79.899 Other long term (current) drug therapy; M19.90 Unspecified osteoarthritis, unspecified site; Z79.82 Long term (current) use of aspirin
CPT/HCPCS: 00914; 52601; 36415; 80048; 85027; 88305; 93005; J7120; J2405

== ENCOUNTER → 2021-10-29 06:53 | Outpatient (CLI) | payer BC, SELFPAY ==
--- NOTE | 2021-10-29 06:54 | CT_ITS ---
STUDY: CT SCAN LOWER EXTREMITY LEFT REASON FOR EXAM: Male, [address] templating for left TKA.[facility] protocol RADIATION DOSAGE (If Supplied By Facility): CTDIvol = ( 18.76 ) mGy, DLP = ( 1163.48 ) mGycm. Individualized dose optimization techniques were used for this CT.? TECHNIQUE: Multiple axial tomographic images of the left hip joint, left knee joint and left ankle joint were obtained. Coronal and sagittal reconstruction was obtained as well. COMPARISON: None. FINDINGS: Imaging of the left hip joint was obtained. No significant joint space narrowing is seen. No bony abnormality is present. Imaging of the left knee joint was obtained. There is a moderate degree of joint space narrowing involving the medial compartment of knee joint. Tiny osteochondral defect along the medial femoral condyle. Minimal joint effusion. Imaging of the ankle joint was obtained. There is evidence of an old avulsion fracture of the medial malleolus. CT/Extremity Lower without Contra IMPRESSION: Moderate degree of joint space narrowing of the medial compartment of the knee joint with a small osteochondral defect of the distal femoral condyle. Old avulsion fracture of medial malleolus. Electronically Signed: Sha Quinn MD at 8:58 EST , Service support ,
== END ==
PROVIDERS: PCP Family Medicine; Referring Provider Orthopaedic Surgery; Visit Provider Orthopaedic Surgery
DX: M17.12 Unilateral primary osteoarthritis, left knee (principal)
CPT/HCPCS: 73700

== ENCOUNTER 2021-11-12 07:59 | Day surgery (SDC) | payer BC, SELFPAY ==
[2021-11-12] VITALS (7 sets, daily range): BP systolic 122–154; BP diastolic 67–95; PULSE 60–99; RESP 16–20; TEMP 36.2–36.9; O2SAT 93–98; BMI 35.2
[2021-11-12] MEDS: Lactated Ringers 1,000 ML 15 ML IV (08:36)
--- NOTE | 2021-11-12 08:47 | PCM.HP.BLA ---
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: No Is patient in pain?: No Allergies No Known Allergies Allergy (Verified 06/18/21 13:56) Medications amlodipine 10 mg tablet 10 mg PO DAILY 08/07/20 [History Confirmed 06/18/21] lithium carbonate 300 mg capsule 600 mg PO BID cap 08/07/20 [History Confirmed 06/18/21] metoprolol succinate 50 mg tablet,extended release 24 hr 50 mg PO DAILY 08/07/20 [History Confirmed 06/18/21] trazodone 100 mg tablet 1 - 2 mg PO QHS tab 08/07/20 [History Confirmed 06/18/21] aspirin 81 mg PO DAILY@0800 #30 tab.chew 08/09/20 [Rx Confirmed 06/18/21] atorvastatin 40 mg PO QHS #30 tab 08/09/20 [Rx Confirmed 06/18/21] clopidogrel 75 mg PO DAILY #30 tab 08/09/20 [Rx Confirmed 06/18/21] gabapentin 100 mg capsule 100 mg PO TID 06/18/21 [History Confirmed 06/18/21] hydrochlorothiazide 25 mg tablet 25 mg PO DAILY 06/18/21 [History Confirmed 06/18/21] tamsulosin 0.4 mg capsule 0.4 mg PO DAILY 06/18/21 [History Confirmed 06/18/21] PFSH Medical History Acute bronchitis Arthritis Bipolar 1 disorder Carotid stenosis, bilateral Chest pain Essential hypertension Pharyngitis Shortness of breath Shoulder pain Surgical History History of arthroscopy of knee History of bursectomy History of carpal tunnel release Family History Father Myocardial infarction Hypertension Alcoholism Mother Cancer Diabetes Brother Heart disease Hypertension Alcoholism Cancer prostate Grandfather Myocardial infarction CVA (cerebral vascular accident) Carotid arterial disease Social History Smoking Status: Never smoker alcohol intake: current Alcohol type: beer substance use type: does not use HPI HPI HPI: NIKO BROWN, is a 60 M who presents to the office today for surgical consultation regarding a screening colonoscopy. His previous one is 15 years ago. He denies family history of colon cancer. Denies bright red blood per rectum or melena. He is on clopidogrel because of a previous myocardial infarction. States he does have his stents in place. He has chronic bilateral lower extremity swelling. He is being treated with hydrochlorothiazide. It is of additional note the patient states that when he had his myocardial infarction that he was worked up and had a CTA of his carotids. That was August 08. There was felt to be 50 to 69% stenosis of the right internal carotid and a small thrombus seen at the right carotid bifurcation. The patient states he was seen by Dr. Souleymane Loving. Medical management was recommended. The patient denies any focal central neurologic event. It is of note that October 23, 2020 the patient had a carotid duplex at the [facility]. There was irregular plaque noted within the right internal and external carotid artery. There was mobile plaque noted in the right carotid bulb measuring 0.24 x 0.22 cm The patient is referred by Dr Derrell Salmeron for screening colonoscopy and a written copy of my surgical consult and recommendations will return to him ROS General General: No weight change, appetite, fatigue, colon cancer, breast cancer or weakness HEENT HEENT: No difficulty swallowing, eye injury, eye surgery, swollen glands or hoarseness Endo Endocrine: No thyroid disease, diabetes mellitus, thyroid cancer, Hair loss, heat intolerance or cold intolerance Skin Skin: No rash or changing moles Breast Breast: No left breast lump, right breast lump, nipple discharge, breast pain, abnormal mammogram, abnormal US or breast enlargement Musc Musculoskeletal: Yes arthritis; No back problems, rheumatoid arthritis, gout or joint pain Cardio Cardiovascular: Yes heart disease and heart attack; No murmur, pacemaker, atrial fibrillation, high blood pressure, heart stent, palpitations, shortness of breat with exertion or chest pain Psych Psychiatric: No depression, anxiety or hearing voices Resp Respiratory: No shortness of breath, No sleep apnea, No cough, No COPD, No asthma, No emphysema and No wheezing Gastro Gastrointestinal: No abdominal pain, No nausea or vomiting, No diarrhea, No constipation, No blood in stool, No acid reflux, No hemorrhoids, No ulcers, No gallbladder problem and No black,tarry stools Hilton Hematologic: No blood thinners, No blood disorders, No bleeding, No anemia and Yes blood clots Neuro Neurologic: No system reviewed and no additional complaints, except as documented, No as per HPI, No abnormal gait, No abnormal hearing, No abnormal movements, No abnormal speech, No behavioral changes, No burning sensations, No confusion, No convulsions, No disequilibrium, No dizziness, No localized weakness, No frequent falls, No headache(s), No lack of coordination, No loss of vision, No memory loss, No numbness, No other visual disturbances, No radicular pain, No restless legs, No sensory deficit, No syncope, No tingling, No tremor(s), No weakness and No other Exam Const General: cooperative, comfortable and no acute distress Nutritional Appearance: obese Orientation: alert, awake and oriented x3 HENMT Head: normal to inspection Eyes General: appearance normal, both eyes and all related structures Chest Chest palpation & inspection: normal inspection of the chest Resp Effort & Inspection: normal respiratory effort Auscultation: clear to auscultation bilaterally Cardio Rate: regular rate Rhythm: regular rhythm GI Inspection: normal to inspection Palpation: soft and no hepatosplenomegaly Musc Cervical Spine: normal cervical lordosis Neuro General: patient alert Cognition: normal cognition Speech: speech normal Extrem Other: 1+ bilateral lower extremity nonpitting edema Psych Appearance: grossly normal COVID (Procedure Consent) Procedure Criteria Procedure Criteria: Yes Elective The surgeon/proceduralist and patient have discussed in detail the risk of exposure to and/or potential harm posed by the COVID-19 virus with having a surgery/procedure at this time versus the risk of delaying the surgery/procedure. It is not possible to know either the risk of delaying the surgery or procedure or chance of getting an infection with perfect accuracy, but a joint decision was made between the patient and the surgeon/proceduralist to proceed at this time with the scheduled surgery/procedure as indicated on the consent form. Assessment and Plan Assessment and Plan (1) Screening for intestinal cancer: Status: Acute (2) Stenosis of right carotid artery: Status: Acute Plan Details Other Orders: Orders: Colonoscopy Today Carotid Duplex Ultrasound Today I65.23 Additional Comments: I recommended the patient a updated carotid duplex imaging exam. The patient is aware that his screening colonoscopy with possible biopsy or polypectomy is a elective event. I need to make sure that the right carotid thrombus mobile plaque has not changed or is stable. I described him the technique, benefit, risk and alternatives of a colonoscopy. He is at increased risk so I will keep him on his clopidogrel therapy both for cardiac and extracranial carotid disease. He has follow-up with Dr. Souleymane Loving scheduled in the future. The patient's had an opportunity to ask and have questions answered. We will proceed as noted. I appreciate the opportunity of assisting with the surgical care. Copy: Dr Derrell Gilbert M.D., F.A.C.S. I have re-examined the patient. There are no clinical changes since date of exam. We did have some delay in evaluating him for his small mobile plaque of the carotid. We did get clearance from Dr. Souleymane Loving to proceed. The patient has clarified to me some of the issues. He has had an opportunity to ask and have questions answered. The remainder of his health remains steady. He has had some prostate work in the interim. Otherwise he has been healthy. Randall Gilbert M.D., F.A.C.S.
--- NOTE | 2021-11-12 09:30 | COLBX_PTH ---
PATIENT: NIKO BROWN LOC: EN U#:[id number] AGE/SX: 61/M ROOM: RE11/12/[address]: Dr. Randall Gilbert MD : 1960 BED: DIS: 11/12/2021 SPEC #: [id number] RECD: 11/12/21 11:33 STATUS: KARINE YAZ #: [id number] SHONDA: 11/12/21 09:[address]: Randall Gilbert DEPT: SURGICAL PATHOLOGY RECD BY: Sherri Griffin ENTERED: 11/12/21 12:59 SP TYPE: COLON BX OTHR DR: Dr. Derrell Salmeron MD Tissues: A - Transverse colon B - COLON BIOPSY C - Transverse colon D - Transverse colon E - Transverse colon F - Transverse colon G - Descending colon H - Sigmoid colon biopsy Procedures: Surgery Specimen Level IV HEADER OPERATION: Colonoscopy (MAC) PRE-OP DIAGNOSIS: Screening for intestinal cancer TISSUE SUBMITTED: A ? Proximal transverse polyp, B ? Hepatic flexure biopsy, C ? Proximal transverse polyp #2 biopsy, D - Proximal transverse polyp #3, E ? Distal transverse polyp biopsy, F - Distal transverse polyp #2, G ? Descending colon polyp, H ? Proximal sigmoid polyp MICROSCOPIC DIAGNOSIS A. Proximal transverse colon polyp, biopsy: Fragments of tubular adenoma. B. Colonic polyp at hepatic flexure, biopsy: Tubular adenoma. C. Proximal transverse colon polyp #2, biopsy: Tubular adenoma. D. Proximal transverse colon polyp #3, biopsy: Fragments of tubular adenoma. E. Distal transverse colon polyp, biopsy: Fragments of tubular adenoma. F. Distal transverse colon polyp #2, biopsy: Fragments of tubular adenoma. G. Descending colon polyp, biopsy: Tubular adenoma. H. Proximal sigmoid colon polyp, biopsy: Tubular adenoma. AM:balwinder 11/13/2021 MICROSCOPIC DESCRIPTION Slides are reviewed. GROSS DESCRIPTION A - Received in fixative is one container labeled with the patient's name and designated proximal transverse polyp. The specimen consists of multiple irregular fragments of light medina soft tissue that in aggregate measure 0.5 x 0.5 x 0.1 cm. The specimen is totally submitted in one cassette. B - Received in fixative is one container labeled with the patient's name and designated hepatic flexure biopsy. The specimen consists of one irregular fragment of light medina soft tissue that measures 0.3 x 0.2 x 0.1 cm. The specimen is totally submitted in one cassette. C - Received in fixative is one container labeled with the patient's name and designated proximal transverse polyp. The specimen consists of one irregular fragment of light medina soft tissue that measures 0.3 x 0.2 x 0.1 cm. The specimen is totally submitted in one cassette. D - Received in fixative is one container labeled with the patient's name and designated proximal transverse polyp. The specimen consists of multiple irregular fragments of light medina soft tissue that in aggregate measure 2 x 0.5 x 0.1 cm. The specimen is totally submitted in one cassette. E - Received in fixative is one container labeled with the patient's name and designated distal transverse polyp biopsy. The specimen consists of multiple irregular fragments of light medina soft tissue that in aggregate measure 0.6 x 0.5 x 0.1 cm. The specimen is totally submitted in one cassette. F - Received in fixative is one container labeled with the patient's name and designated distal transverse polyp #2. The specimen consists of multiple irregular fragments of light medina soft tissue that in aggregate measure 1.3 x 0.5 x 0.2 cm. The specimen is totally submitted in one cassette. G - Received in fixative is one container labeled with the patient's name and designated descending colon polyp. The specimen consists of a polypoid fragment of medina tissue measuring 1.2 x 1 x 0.8 cm. The specimen is sectioned and totally submitted in one cassette. H - Received in fixative is one container labeled with the patient's name and designated proximal sigmoid polyp. The specimen consists of one irregular fragment of light medina soft tissue that measures 0.5 x 0.3 x 0.1 cm. The specimen is totally submitted in one cassette. / AM:balwinder 11/12/21 TC:5 CPT: 70543 x8
--- NOTE | 2021-11-12 11:11 | OP.COLON_ITS ---
Patient Name: Raghu Huitron Procedure Date: 11/12/2021 10:10 AM Date of : 1960 Age: 61 Procedure: Colonoscopy Indications: Screening for colorectal malignant neoplasm Providers: Randall Gilbert MD Referring MD: Derrell Salmeron Medicines: See the Anesthesia note for documentation of the administered medications Patient Profile: Last Colonoscopy: more than 10 years ago. Complications: No immediate complications. Procedure: Pre-Anesthesia Assessment: - Prior to the procedure, a History and Physical was performed, and patient medications and allergies were reviewed. The patient's tolerance of previous anesthesia was also reviewed. The risks and benefits of the procedure and the sedation options and risks were discussed with the patient. All questions were answered, and informed consent was obtained. Prior Anticoagulants: The patient has taken Plavix (clopidogrel), last dose was day of procedure. ASA Grade Assessment: II - A patient with mild systemic disease. After reviewing the risks and benefits, the patient was deemed in satisfactory condition to undergo the procedure. After I obtained informed consent, the scope was passed under direct vision. Throughout the procedure, the patient's blood pressure, pulse, and oxygen saturations were monitored continuously. The adult colonoscope was introduced through the anus and advanced to the cecum, identified by appendiceal orifice and ileocecal valve. The colonoscopy was performed with moderate difficulty due to multiple polyps. The patient tolerated the procedure well. The quality of the bowel preparation was good. Scope In: 10:27:42 AM Scope Withdrawal Time 0 hours 25 minutes 10 seconds Scope Out: 10:56:56 AM Total Procedure Duration Time 0 hours 29 minutes 14 seconds Findings: Hemorrhoids were found on perianal exam. slightly enlarged. No mass A 8 mm polyp was found in the proximal transverse colon. The polyp was sessile. The polyp was removed with a hot snare. Resection and retrieval were complete. To prevent bleeding post-intervention, one hemostatic clip was successfully placed. There was no bleeding at the end of the procedure. A 4 mm polyp was found in the hepatic flexure. The polyp was sessile. The polyp was removed with a cold biopsy forceps. Resection and retrieval were complete. A 3 mm polyp was found in the proximal transverse colon. The polyp was sessile. The polyp was removed with a cold biopsy forceps. Resection and retrieval were complete. A 8 mm polyp was found in the proximal transverse colon. The polyp was sessile. The polyp was removed with a hot snare. Resection and retrieval were complete. A 9 mm polyp was found in the proximal transverse colon. The polyp was sessile. The polyp was removed with a hot snare. Resection and retrieval were complete. To prevent bleeding post-intervention, one hemostatic clip was successfully placed. There was no bleeding at the end of the procedure. A 4 mm polyp was found in the distal transverse colon. The polyp was sessile. The polyp was removed with a cold biopsy forceps. Resection and retrieval were complete. A 6 mm polyp was found in the distal transverse colon. The polyp was sessile. The polyp was removed with a hot snare. Resection and retrieval were complete. A 20 mm polyp was found in the descending colon. The polyp was pedunculated. The polyp was removed with a hot snare. Resection and retrieval were complete. A 7 mm polyp was found in the mid sigmoid colon. The polyp was sessile. The polyp was removed with a hot snare. Resection and retrieval were complete. Multiple diverticula were found in the sigmoid colon and descending colon. Impression: - Hemorrhoids found on perianal exam. - One 8 mm polyp in the proximal transverse colon, removed with a hot snare. Resected and retrieved. Clip was placed. - One 4 mm polyp at the hepatic flexure, removed with a cold biopsy forceps. Resected and retrieved. - One 3 mm polyp in the proximal transverse colon, removed with a cold biopsy forceps. Resected and retrieved. - One 8 mm polyp in the proximal transverse colon, removed with a hot snare. Resected and retrieved. - One 9 mm polyp in the proximal transverse colon, removed with a hot snare. Resected and retrieved. Clip was placed. - One 4 mm polyp in the distal transverse colon, removed with a cold biopsy forceps. Resected and retrieved. - One 6 mm polyp in the distal transverse colon, removed with a hot snare. Resected and retrieved. - One 20 mm polyp in the descending colon, removed with a hot snare. Resected and retrieved. - One 7 mm polyp in the mid sigmoid colon, removed with a hot snare. Resected and retrieved. - Diverticulosis in the sigmoid colon and in the descending colon. Recommendation: - Discharge patient to home. - Resume previous diet. - Continue present medications. - Repeat colonoscopy in 1 year for surveillance. - Telephone my office for pathology results in 1 week. Procedure Code(s): --- Professional --- 12745, Colonoscopy, flexible; with removal of tumor(s), polyp(s), or other lesion(s) by snare technique 37725, 59, Colonoscopy, flexible; with biopsy, single or multiple Diagnosis Code(s): --- Professional --- Z12.11, Encounter for screening for malignant neoplasm of colon K64.9, Unspecified hemorrhoids D12.3, Benign neoplasm of transverse colon (hepatic flexure or splenic flexure) D12.4, Benign neoplasm of descending colon D12.5, Benign neoplasm of sigmoid colon K57.30, Diverticulosis of large intestine without perforation or abscess without bleeding CPT copyright 2017 [employer]. All rights reserved. The codes documented in this report are preliminary and upon hockey instructor review may be revised to meet current compliance requirements. Randall Gilbert MD 11/12/2021 11:10:59 AM This report has been signed electronically. Number of Addenda: 0 Note Initiated On: 11/12/2021 10:10 AM
--- NOTE | 2021-11-12 11:12 | OP.CCLET_ITS ---
11/12/2021 Derrell Salmeron [address] [place] [address] Re : Colonoscopy procedure for [facility] Dear Dr. Salmeron This procedure was performed on Friday, November 12, 2021. My impressions and recommendations are as follows: Impressions : - Hemorrhoids found on perianal exam. - One 8 mm polyp in the proximal transverse colon, removed with a hot snare. Resected and retrieved. Clip was placed. - One 4 mm polyp at the hepatic flexure, removed with a cold biopsy forceps. Resected and retrieved. - One 3 mm polyp in the proximal transverse colon, removed with a cold biopsy forceps. Resected and retrieved. - One 8 mm polyp in the proximal transverse colon, removed with a hot snare. Resected and retrieved. - One 9 mm polyp in the proximal transverse colon, removed with a hot snare. Resected and retrieved. Clip was placed. - One 4 mm polyp in the distal transverse colon, removed with a cold biopsy forceps. Resected and retrieved. - One 6 mm polyp in the distal transverse colon, removed with a hot snare. Resected and retrieved. - One 20 mm polyp in the descending colon, removed with a hot snare. Resected and retrieved. - One 7 mm polyp in the mid sigmoid colon, removed with a hot snare. Resected and retrieved. - Diverticulosis in the sigmoid colon and in the descending colon. Recommendations : - Discharge patient to home. - Resume previous diet. - Continue present medications. - Repeat colonoscopy in 1 year for surveillance. - Telephone my office for pathology results in 1 week. My findings are described in the full procedure note, which is enclosed. If I can be of further assistance, please feel free to contact me at Doctor phone number(s): Work: . Sincerely, Randall Gilbert MD 11/12/2021 11:10:59 AM This report has been signed electronically.
== END 2021-11-12 11:38 ==
LOC: EN 08:00 → AC 08:00
PROVIDERS: PCP Family Medicine; Referring Provider Family Medicine; Visit Provider Surgery
PROC: 0DJD8ZZ Inspection of Lower Intestinal Tract, Via Natural or Artificial Opening Endoscopic (ICD-10-PCS; CPT 45378; principal; 2021-11-12 09:25)
DX: Z12.11 Encounter for screening for malignant neoplasm of colon (principal); D12.4 Benign neoplasm of descending colon; D12.3 Benign neoplasm of transverse colon; D12.5 Benign neoplasm of sigmoid colon; K57.30 Diverticulosis of large intestine without perforation or abscess without bleeding; K64.9 Unspecified hemorrhoids; I25.2 Old myocardial infarction; F31.9 Bipolar disorder, unspecified; E78.00 Pure hypercholesterolemia, unspecified; E66.9 Obesity, unspecified; I10 Essential (primary) hypertension; M19.90 Unspecified osteoarthritis, unspecified site; Z68.35 Body mass index [BMI] 35.0-35.9, adult; Z79.82 Long term (current) use of aspirin; Z79.02 Long term (current) use of antithrombotics/antiplatelets; Z79.899 Other long term (current) drug therapy
CPT/HCPCS: 45380; 45385; 88305; J7120; J2405

== ENCOUNTER → 2021-11-14 08:40 | Outpatient (CLI) | payer BC, SELFPAY ==
[2021-11-14 10:55] LABS: Vitamin B12 377 pg/mL (211-911)
== END ==
PROVIDERS: PCP Family Medicine; Referring Provider Family Medicine; Visit Provider Family Medicine
DX: G62.9 Polyneuropathy, unspecified (principal)
CPT/HCPCS: 36415; 82607; 84207; 84425

== ENCOUNTER 2021-11-19 05:55 | Day surgery (SDC) | payer BC, SELFPAY ==
[2021-11-06 09:55] LABS: AST(SGOT) 27 U/L (15-37); Alanine Aminotransfer ALT/SGPT 48 U/L (16-61); Albumin, Serum 3.7 g/dL (3.2-5.0); Alkaline Phosphatase 68 U/L (45-117); Bilirubin, Direct 0.06 mg/dL (0.00-0.30); Globulin 3.5 g/dL (2.2-4.2); Magnesium 2.1 mg/dL (1.6-2.6); Protein, Total 7.2 g/dL (6.4-8.2)
[2021-11-06 13:07] LABS: Prothrombin Time (Protime)PT. 12.1 SECONDS (11.7-14.9)
[2021-11-13 22:35] LABS: Fructosamine 250 umol/L (0-285)
[2021-11-19] VITALS (14 sets, daily range): BP systolic 81–143; BP diastolic 45–72; PULSE 42–58; RESP 14–18; TEMP 35.8–36.9; O2SAT 93–100; BMI 36.1
[2021-11-19] MEDS: Lactated Ringers 1,000 ML 125 ML IV (07:00)
[2021-11-19] MEDS: Lactated Ringers 1,000 ML 100 ML IV (07:01)
--- NOTE | 2021-11-19 07:25 | PCM.HP.BLA ---
History and Physical Date of Admission: 11/19/21 Date of Service: 10/07/21 MR#:[id number]:[id number]: NIKO BROWNRep #:[id number] Provider:Dr. Roly Chi, DOAge/Sex: 61/M Location:[facility]:Signed Intake Vital Signs 10/07/21 07:57 Height 6 ft 1 in Weight: 274 lb BMI 36.1 Intake Visit Reasons: knee pain Is patient in pain?: Yes Allergies No Known Allergies Allergy (Verified 10/07/21 07:59) Medications amlodipine 10 mg tablet 10 mg PO DAILY 08/07/20 [History Confirmed 10/07/21] lithium carbonate 300 mg capsule 600 mg PO BID cap 08/07/20 [History Confirmed 10/07/21] metoprolol succinate 50 mg tablet,extended release 24 hr 50 mg PO DAILY 08/07/20 [History Confirmed 10/07/21] trazodone 100 mg tablet 1 - 2 mg PO QHS tab 08/07/20 [History Confirmed 10/07/21] aspirin 81 mg PO DAILY@0800 #30 tab.chew 08/09/20 [Rx Confirmed 10/07/21] atorvastatin 40 mg PO QHS #30 tab 08/09/20 [Rx Confirmed 10/07/21] clopidogrel 75 mg PO DAILY #30 tab 08/09/20 [Rx Confirmed 10/07/21] gabapentin 100 mg capsule 100 mg PO TID 06/18/21 [History Confirmed 10/07/21] hydrochlorothiazide 25 mg tablet 25 mg PO DAILY 06/18/21 [History Confirmed 10/07/21] tamsulosin 0.4 mg capsule 0.4 mg PO DAILY 06/18/21 [History Confirmed 10/07/21] [facility] Medical History (Updated 10/07/21 @ 08:17 by Liv Vizcarra) Acute bronchitis Arthritis Bipolar 1 disorder Carotid stenosis, bilateral Chest pain Essential hypertension Osteoarthritis of left knee Pharyngitis Shortness of breath Shoulder pain Surgical History History of arthroscopy of knee History of bursectomy History of carpal tunnel release Family History Father Myocardial infarction Hypertension Alcoholism Mother Cancer Diabetes Brother Heart disease Hypertension Alcoholism Cancer prostate Grandfather Myocardial infarction CVA (cerebral vascular accident) Carotid arterial disease Social History Smoking Status: Never smoker alcohol intake: current Alcohol type: beer substance use type: does not use HPI knee pain Details: Parts of this documentation were recorded by a scribe, this documentation accurately reflects the service provided and the decisions made by me, Dr. Roly Chi, DO 10/07/21 0749. NIKO BROWN is a 61 year old M here today for left knee continued pain. Patient notes that he has pain over his anterior knee and tightness into his posterior knee. Patient complains of a popping which can be painful. He has knee instability. Patient had a cortisone injection on 08/19/21 which was helpful for about a month. He would like to discuss his options and does not want to proceed with the viscosupplementation injections at this time. Patient takes aleve for pain daily. Patient had a prior surgery. He had surgery about 15 years ago in the OR and is unsure what was done. He had gravel in his knee from falling at work and he pulled gravel out with pliers. He no longer is kneeling often. He has a carotid artery stenosis on his right that he states is stable he had history of a mild heart attach last year. Patient admits to 1-2 beers per day he does not drink daily he states that he never had withdrawal-like symptoms from not drinking Ortho Exam General General: Yes no acute distress Neurologic: Yes alert Psychologic: Yes reasonable and appropriate Right Knee Patella Translation: 1 Left Knee Skin/Wound: Yes CDI, No ecchymosis, No erythema and No swelling Homans Sign: No Knee ROM: Yes ROM-Extension -20 to 0 (-6) and Yes ROM-Flexion 0-140 (88) Examination: Yes med jt line tenderness and Yes Lat jt line tenderness Stability: NML: Anterior Drawer, NML: Posterior Drawer, NML: Valgus 30 and NML: Varus 30 Apprehension with Lateral Translation: No Patella Translation: 1 Patella Grind: Yes KNEE: edema to tibial tubercle.anterior scar from prior surgery. decreased but palpable pedal pulses 1/4 PT and DP No active ulcerations or infections. Supplemental Info 02/22/2021 x-ray right knee mild narrowing lateral compartment and mild spurring medial femoral condyle patellofemoral spurring 02/22/2021 x-ray left knee moderate medial joint space narrowing with subchondral cystic changes and spurring throughout the knee: Coding Level of Care Code Off vis,est,level 3 Diagnoses Osteoarthritis of left knee M17.12 Assessment and Plan Assessment and Plan (1) Osteoarthritis of left knee: Status: Acute Plan - Dr. Roly Chi DO: Spoke with the patient about a total knee arthroplasty. Due to current swelling in his leg, it is very important for him to wear compression stockings post op to prevent blood clots. Patient should also elevate to decrease swelling. Patients knee is stiff currently. Spoke with him about the importance of physical therapy post op to allow him to achieve better range of motion. If he has limited range of motion at 6 weeks post op, he may have a manipulation. Spoke with him about his alcohol abuse and the need for post op pain medications can not be mixed with EToH , and the risks of addition. Patient will need to get a CT scan for the makoplasty. He has a walker at home. Patient will do physical therapy at [facility] after his surgery. We discussed expected postoperative expectations and risk of stiffness and prolonged discomfort secondary to his preoperative range of motion, spoke with him about the risks of injury if he has any falls. He should contact our office with any dental procedures for an antibiotic. Spoke with the patient about iovera preop which he would like to proceed with it. We will send him to pre-rehabilitation. Risks, benefits and alternatives of surgery reviewed including but not limited to bleeding, infection, nerve, artery and/or tissue damage, fracture, VTE, mechanical feel of the knee, continued pain, stiffness and expected post-operative course. Follow up for post op or sooner if pain, swelling, numbness or associated symptoms, or concerns develop. All questions answered. Patient in agreement of plan. 10/07/21 1004<Electronically signed by Roly Chi DO>Date Roly Chi DO Cosigner Signature:Date (if applicable) CC: ~ I have re-examined the patient. There are no clinical changes since date of exam
[2021-11-19] MEDS: Gabapentin 600 MG Tablet PO (07:32)
[2021-11-19] MEDS: Acetaminophen 500 MG Tablet 1000 MG PO ×2 (07:32→14:42)
[2021-11-19] MEDS: Scopolamine 1mg/72hr Patch 1 PATCH TD (07:32)
[2021-11-19 07:55] LABS: Bedside Glucose 177 mg/dL (70-110)
--- NOTE | 2021-11-19 08:15 | KNEE_PTH ---
PATIENT: NIKO BROWN LOC: [facility] [place] U#:[id number] AGE/SX: 61/M ROOM: RE11/19/[address]: Dr. Roly Chi DO : 1960 BED: DIS: 11/19/2021 SPEC #: [id number] RECD: 11/19/21 11:38 STATUS: KARINE REBrayan #: [id number] SHONDA: 11/19/21 08:[address]: Roly Chi DEPT: SURGICAL PATHOLOGY RECD BY: Jonny Joe ENTERED: 11/19/21 13:08 SP TYPE: TOTAL KNEE OTHR DR: MD Dr. Derrell Bautista MD Tissues: Knee, NOS Procedures: Decalcification bone/plaque Surgery Specimen Level IV HEADER OPERATION: ERAS, total knee replacement robotic arm assist PRE-OP DIAGNOSIS: Osteoarthritis of left knee TISSUE SUBMITTED: Bone and soft tissue left knee MICROSCOPIC DIAGNOSIS Bone and tissue of left knee, total knee resection: Consistent with degenerative joint disease. AM:balwinder 11/25/2021 MICROSCOPIC DESCRIPTION Slides are reviewed. GROSS DESCRIPTION Received is one container designated bone and soft tissue left knee. The specimen consists of multiple fragments of medina-yellow bone measuring in aggregate 10 x 9 x 3 cm. No soft tissue is identified. A number of bony fragments contain articular surfaces consistent with tibial plateau and femoral condyle and displaying prominent osteophyte formation and bone erosion. Assembly Press Operator sections are submitted in two cassettes after decalcification. / ARPAN:balwinder 11/19/21 TC:5 CPT: 46108, 36101
[2021-11-19] MEDS: dexAMETHasone 10 MG/ML Vial IV (08:35)
[2021-11-19] MEDS: Betamethasone/Betamethasone 30 MG/5 ML Vial (10:23)
[2021-11-19] MEDS: Epinephrine (1 mg/ml) 1 MG/ML VIAL (10:23)
[2021-11-19] MEDS: Bupivacaine 0.5% PF 10 ML VIAL (10:23)
[2021-11-19] MEDS: 0.9% Normal Saline (Pres. free 10 ML Vial (10:23)
--- NOTE | 2021-11-19 11:10 | PCM.OPRPT ---
Report of Operation Date of Procedure: 11/19/21 Description of Surgical Findings:: Preoperative diagnosis: Left knee DJD Postoperative diagnosis: Same Procedure: Left total knee arthroplasty CT guided Robotic Assisted Implant: Thanh triathlon press fit, femoral component size6, tibial baseplate size 7, asymmetric patella size 38, polyethylene X3 size 9 CS Anesthesia: Spinal with adductor canal block Tourniquet time: 21 minutes at 300 mmHg Complications: None Condition: Stable to PACU Estimated blood loss: 125 cc Indication for procedure: This is a 81-year-old male with long standing degenerative joint disease of the knee who has failed conservative treatment and wished to proceed with elective total knee arthroplasty. Risk benefits and alternatives were reviewed including; risk of bleeding, infection, nerve artery and tissue damage, continued pain, postoperative stiffness, venous thromboembolism, need for postoperative rehabilitation, mechanical feel to the knee, and expected postoperative course. The pre- operative CT and templating was performed with component sizing. Procedure: The patient was met in the preoperative holding area. The operative extremity was identified by both patient and physician and was marked. Patient was met by anesthesia. An adductor canal block was placed by anesthesia postoperatively the patient was brought back to the operating room on a wheeled cart and transferred to the operating table in the supine position. Anesthesia was started. A well-padded tourniquet was placed on the operative extremity. The patient was prepped and draped in the usual sterile fashion. A timeout was called to ensure the proper patient procedure and extremity were being contemplated. An esmarch was used to exsanguinate the extremity. The tourniquet was inflated. A 10 blade scalpel was used to make a midline incision down through the skin and subcutaneous tissue. Skin retractors placed. Bovie and aquamantis were used to perform meticulous hemostasis. full-thickness flaps were elevated medial and lateral along the joint capsule. A deep blade scalpel was used to perform a medial parapatellar arthrotomy. The knee was brought to full extension. A bovie was used to release the soft tissues off the most proximal aspect of the medial tibial plateau, a three-quarter inch curved osteotome was also used in this process. The infrapatellar fat pad was excised. The suprapatellar fat pad was excised partially anteriorolateraly and portion the anterioromedial pad was elevated from the femur. At this point our intra-articular femoral array was placed at a 45 degree angle proximal and posterior to the medial epicondyle. femoral checkpoint was placed at this time. Our tibial array was placed greater than 1 hands breath below the incision at a 20 degree angle stab incisions were made with a 15 blade scaple and pins were placed and attached to the tibial array , tibial checkpoint was placed in the proximal tibial metaphysis. Tourniquet was let down. At this point registration johnson were taken throughout the knee . Once the knee was registered we then tensioned the medial and lateral ligaments in extension and 90 degrees of flexion. We then used these numbers to adjust our components within parameters to balance the knee in both flexion and extension once this was done on our monitor we then proceeded with using the robotic arm to make our tibial plateau cut, anterior and posterior chamfer and distal femur cuts. we removed the cut fragments with the use of a bovie and atiya, we did use a lamina instructor of sociology to insure we visualized and removed all posterior osteophytes and at this time also used the aquamantis on the posterior joint capsule. we then trialed and achieved the desired plan with a well-balanced knee. He was lacking 9 degrees preoperatively this was improved by 3 degrees postoperatively it was felt not to be of benefit to cut more distal femur with the amount of laxity that we felt with the collateral ligaments in full extension did not want a compromises stability and visibly the leg looked straight. we used the green prob to yoli the corresponding tibial rotaion based on our CT tmeplate. Lug holes were drilled in the femur the tibia preparation was completed with the appropriate sized base plate pinned based on previous rotation yoli. An approprate sized fin punch was used on the tibia and 4 corner drill was used for the press fit component and the patella was prepared by first using a caliper to ensure sufficient bone stock and a patellar reamer to remove the desired amount of bone. lug holes drilled for an asymmetric poly. We then brought the knee through range of motion with excellent patellar tracking. We thoroughly irrigated the knee. Trial components were removed a posterior capsular injection was perfomed with our standard cocktail. In addition the aqua Mantis was also used to aid in hemostasis. Betadine rinse was allowed to sit and washed out completely. Components were press-fit into place. Aricept rinse was then used followed by several moree liters of irrigation after it was allowed to sit. The joint capsule was closed with #1 Ethibond [id number] followed by Vicryl in the subcutaneous tissues with mell in the skin. Arrays and checkpoints were removed prior to closure all counts were correct stab incisions were closed with a staple standard dressing in the form of Mepilex AG for the main incision and a small meplix over the pin holes. Thigh-high TATO hose applied over top of dressing. Patient tolerated the procedure well and was directed to PACU in stable condition . There were no intraoperative complications.
--- NOTE | 2021-11-19 11:13 | PCM.DC ---
Discharge Instructions Activity Weight Bearing Status: Weight bearing as tolerated Keep extremity elevated above heart level: Operative Extremity Dressing / Incision Additional Dressing/Incision Instructions:: Ice and elevate one week while not ambulating. Ambulation is encouraged. Weightbearing as tolerated. Use assistive devise for stability. Encourage FULL knee extension and flexion 1 time EVERY time you get up and down and MULTIPLE times per day. No showering 72 hours after surgery. Begin showering postop day #3. Remove the dressing prior to shower and gently wash with warm water and antibacterial soap then pat dry and place abdominal pad (or plain gauze) and TATO hose over top. This is to be done daily. Do not submerge for 3 weeks. If not showering daily after the initial 72 hours then you must clean incision and change dressing daily. Do not allow animals near the incision area. Keep clean. Follow anticoagulation recommendations as prescribed. Do not take any NSAIDs while on blood thinner. Do not take any additional narcotic pain medication other than what was prescribed on your surgery day without discussing with physician. Narcotic medication can be addictive. Do not drink alcohol while taking narcotics. Start physical therapy. If you are not currently scheduled for physical therapy or you are unsure of appointment time please call office [place] to arrange. Call Dr. Chi with any concerns. Follow Up Care Please Follow Up With: Roly Chi DO When: 2 weeks Test Results: Test results from this visit will be discussed in further detail at your follow-up appointment, if applicable. Discharge Plan Admission Attending Provider: Roly Chi Primary Care Provider: Derrell Salmeron Consulting Providers: Soy Rader Discharge Orders/Prescriptions Prescriptions: New acetaminophen [acetaminophen] 500 MG tablet 1,000 mg PO Q6H PRN Qty: 100 RF: 0 cephalexin [cephalexin] 500 MG capsule 1,000 mg PO Q8 Qty: 4 RF: 0 Eliquis 2.5 mg tablet 2.5 mg PO BID Qty: 28 RF: 0 oxycodone 5 mg tablet 5 - 10 mg PO Q4H PRN (Reason: pain) 7 Days Qty: 60 RF: 0 Continued lithium carbonate 300 mg capsule 600 mg PO BID RF: 0 trazodone 100 mg tablet 1 - 2 mg PO QHS RF: 0 metoprolol succinate 50 mg tablet extended release 24 hr 50 mg PO DAILY RF: 0 amlodipine 10 mg tablet 10 mg PO DAILY RF: 0 hydrochlorothiazide 25 mg tablet 25 mg PO DAILY RF: 0 gabapentin 100 mg capsule 100 mg PO TID RF: 0 atorvastatin 40 MG tablet 40 mg PO QHS Qty: 30 RF: 0 Held clopidogrel [Plavix] 75 mg tablet 75 mg PO DAILY RF: 0 Hold Instructions: May resume day after completion of blood thinner aspirin 81 mg Tablet,Chewable 81 mg PO DAILY RF: 0 Hold Instructions: May resume day after surgery Referrals / Follow Up: Derrell Salmeron MD [Primary Care Provider] - Disposition Disposition (needs filled in before D/C Order can be placed): Home, Self Care
--- NOTE | 2021-11-19 11:43 | RAD_ITS ---
STUDY: X-RAY - LEFT KNEE REASON FOR EXAM: Male, 61 years old. post op in pacu -- in PACU TECHNIQUE: 2 view(s) of the knee. COMPARISON: 08/19/2021 FINDINGS: Normal visualized distal femur. Normal visualized proximal tibia and fibula. Normal proximal tibiofibular articulation. Status post recent total knee arthroplasty with subcutaneous emphysema and skin mell are. The soft tissue structures are unremarkable. RAD/Knee 1 or 2 Views IMPRESSION: Normal x-ray examination of the knee after recent total knee arthroplasty. Electronically Signed: Javad Hernandez MD at 12:15 EST Tel , Service support ,
[2021-11-19] MEDS: Cefazolin 1 GM/50 ML BAG IV (14:00)
[2021-11-19] MEDS: oxyCODONE 5 MG Tablet PO (14:25)
[2021-11-19] MEDS: Lactated Ringers 500 ML 999 ML IV (15:50)
== END 2021-11-19 17:40 | disposition home or self-care (01) ==
LOC: SDC 05:55 → AC 05:57
PROVIDERS: Anesthesiology; PCP Family Medicine; Referring Provider Orthopaedic Surgery; Visit Provider Orthopaedic Surgery
PROC: 0SRD0JZ Replacement of Left Knee Joint with Synthetic Substitute, Open Approach (ICD-10-PCS; CPT 27447; principal; 2021-11-19 07:55)
DX: M17.12 Unilateral primary osteoarthritis, left knee (principal); I10 Essential (primary) hypertension; F31.9 Bipolar disorder, unspecified; Z79.899 Other long term (current) drug therapy; Z79.02 Long term (current) use of antithrombotics/antiplatelets; Z79.82 Long term (current) use of aspirin; F10.10 Alcohol abuse, uncomplicated; I25.2 Old myocardial infarction
CPT/HCPCS: 01402; 27447; 64447; S2900; 36415; 73560; 80076; 82962; 82985; 83735; 85610; 85730; 86850; 86900; 86901; 87081; 88305; 88311; 97162; C1776; J7120; J0702; J3490

== ENCOUNTER 2022-01-02 08:30 | Outpatient (RCR) | payer BC, OTHER, SELFPAY ==
--- NOTE | 2021-11-21 08:49 | HP.PTEVAL_ITS ---
Patient's Visit Information NIKO BROWN is a 61 year old M referred to Physical Therapy by Dr. Roly Chi DO with a diagnosis of L TKA. Date of Evaluation: 11/21/21 Physical Therapist: Husam Fox DPT - Visit Plan Frequency: 2-3x /Week Duration: 4-6 Weeks Plan: 1)Start with ROM, focus on TKE and progressing flexion. joint mobs III/IV to assist with motion/tolerance. 2) work on pain and edema management. 3) Work on gait tolerance and pattern initially with AD, progression to No AD as tolerated with proper gait pattern. 4) progress functional strengthening/mobility tolerance. - Subjective Pt. is here today for his initial evaluation with diagnosis of L TKA. DOS: 11/19/21. 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 Pt. was on his knees a lot. Pt. reports prior to surgery having increasing stiffness in his knee. Pt. is currently rating pain at 6-7/10 pain. Pt. denies N/T, no chest pain, no calf pain, no fever and no chills. Pt. reports his pain has increased as his nerve block has worn off. Pt. was able to sleep in bed, but was limited with his rest. He is taking pain medication as prescribed. He likes working out side on his house and his extensive garden/[place]. He is hopeful to get back to all of these activities without limitations. - Pain L knee Pain Intensity (Out of 10): 7 Pain Intensity Range: 5, 9 - Objective POSTURE: Pt. has good posture in stance. He is able to stand without AD, but has slight flexion in L knee. PALPATION: Pt. has no signs of infection. bandage in place. Negative Homans sign. Girth: RLE 10cm greater on than L at patella, 4 in above patella, 8cm difference. NEURO: Pt. has normal sensation in proximal BLEs. He does described bilateral peripheral neuropathy. This is to be looked into after he rehabs his knee. ROM: R knee 0-0-128deg. L knee 0-10-78deg. Pt. has tight HS bilaterally. Normal hip ROM bilaterally. MMT: RLE: ankle 5/5 throughout; knee 5/5 throughout; hip 5/5 throughout. LLE: ankle 5/5 throughout; knee: ext 5.1lbs, flexion 10.4lbs. Hip: flexion 4.1lbs, abd 3.8lbs, ext 5.2lbs. GAIT: Pt. ambulates well with FWW. Pt. has decreased R step length, but is still step through pattern. He lacks TKE during L stance phase. STARIS: He is able to complete with step to pattern with 2 HR with loading RLE only. TU.8sec - Balance/Special Test Scores Lower Extremity Functional Score: 9 TUG Test Time Seconds: 39.8 WOMAC Total Score: 43 WOMAC Percentatge: 55.2100 - Goals Goal 1:: LTG: Pt. to be I with HEP. Goal Time Frame: 4-6 Weeks Goal 2:: STG: to have equal girth measurements between L and R knee, indicating reduced edema. Goal Time Frame: 2-4 Weeks Goal 3:: STG: Pt. to have increased PROM of L knee to 0-0-95deg. Goal Time Frame: 2 Weeks Goal 4:: LTG: Pt. to have increased AROM of L knee to at least 0-0-120deg. Goal Time Frame: 4-6 Weeks Goal 5:: LTG: Pt. to have increased MMT of LLE to 5/5 throughout. Goal Time Frame: 4-6 Weeks Goal 6:: LTG: Pt. to ambulate without AD with normal gait pattern with 0-1/10 pain in L knee. Goal Time Frame: 4-6 Weeks - Rehabilitation Potential Physical Therapy Diagnosis: Pt. has signs and symptoms consistent with L TKA. Pt. has subsequent increased pain, hypomobility, weakness, difficulty walking and decreased functional mobility. Pt. would benefit from PT to work on the above limitations progressing back to all previous level of mobility/. Rehabilitation Potential: Excellent - Anticipated Interventions Patient/Client Instruction: Educate patient on: Condition, Plan of Care, Risk Factors, Benefits of Fitness Program For the Purpose of:: To improve health and function, To foster healthy habits, To improve decision making, To facilitate caregiver knowledge, To improve self management, To prevent re-injury, To improve ability to perform tasks related to life management Therapeutic Exercise to Include: Strength training, Power training, Balance training, Body mechanics, Postural training, Gait and locomotor training, Passive ROM, Active ROM For the Purpose of:: To decrease pain, To increase ROM, To improve nutrient delivery to tissue, To increase oxygenation perfusion, To improve muscle performance and motor function, To improve ability to perform ADL's, To increase tolerance to activity/condition/position, To improve performance and independence with ADL's Manual Therapy Techniques to Include: Mobilization, Passive ROM, Soft tissue mobilization For the Purpose of:: To decrease pain, To decrease swelling/inflammation, To increase ROM, To improve nutrient delivery to tissue, To increase oxygenation perfusion, To improve muscle performance and motor function TENS: Yes Cryotherapy (ice pack, ice massage): Yes For the Purpose of:: To decrease pain, To decrease swelling/inflammation, To increase ROM, To improve nutrient delivery to tissue, To increase oxygenation perfusion, To improve muscle performance and motor function Thank you for the opportunity to evaluate your patient. For Medicare and Medicare HMO plans, please review the plan of care and approve it. It will need to be FAXED BACK to us at [phone] for Medicare purposes. For Medicare only, by signing this I certify the plan of care. Please let me know if there are questions or concerns regarding this plan of care. Physician Signature: Date:
--- NOTE | 2021-11-28 08:14 | HP.PTREVAL_ITS ---
Dr. Roly Chi, DO, It has been my pleasure to treat NIKO BROWN over the last 3 visits for L TKA. Please see the progress note below for an update on the physical therapy plan of care! Subjective: Pt. reports being sore today after PT last night. He and his had questions about the stairs. Pt. to see physician next week. Objective/Function: Pt. did well with PT. He is still tight/painful with end range flexion and extension. He is missing ~8 deg of extension. Flexion to 90deg today. Pt. is walking well, but again lacking TKE during gait. He is on the more sore side, but tolerable. Negative Homans sign. Pt. has some tingling in his toes, but was there prior to surgery and bilaterally. I talked to him ab out being frequent with his stretching into flexion and extension at home. He did report he is getting low on his pain medication due to pharmacy only giving him a portion of his prescription. Pt. is doing heel props and knee flexion exercises both sitting, with spouse over pressure and with step flexion stretching. Plan Plan: Pt. to see physician next week. Cont. to focus on flexion/extension ROM, work on swelling. Add in gait progression during on increasing knee extension during stance phase. Balance/Gait/Functional tests - Balance/Special Test Scores Lower Extremity Functional Score: 9 TUG Test Time Seconds: 39.8 Tug Test: >30sec.=impaired mobility WOMAC Total Score: 43 WOMAC Percentage: 55.2100 Goals Goal 1:: LTG: Pt. to be I with HEP. Goal Time Frame: 4-6 Weeks Goal 2:: STG: to have equal girth measurements between L and R knee, indicating reduced edema. Goal Time Frame: 2-4 Weeks Goal 3:: STG: Pt. to have increased PROM of L knee to 0-0-95deg. Goal Time Frame: 2 Weeks Goal 4:: LTG: Pt. to have increased AROM of L knee to at least 0-0-120deg. Goal Time Frame: 4-6 Weeks Goal 5:: LTG: Pt. to have increased MMT of LLE to 5/5 throughout. Goal Time Frame: 4-6 Weeks Goal 6:: LTG: Pt. to ambulate without AD with normal gait pattern with 0-1/10 pain in L knee. Goal Time Frame: 4-6 Weeks Anticipated Interventions Patient/Client Instruction: Educate patient on: Condition, Plan of Care, Risk Factors, Benefits of Fitness Program For the Purpose of:: To improve health and function, To foster healthy habits, To improve decision making, To facilitate caregiver knowledge, To improve self management, To prevent re-injury, To improve ability to perform tasks related to life management Therapeutic Exercise to Include: Strength training, Power training, Balance training, Body mechanics, Postural training, Gait and locomotor training, Passive ROM, Active ROM For the Purpose of:: To decrease pain, To increase ROM, To improve nutrient delivery to tissue, To increase oxygenation perfusion, To improve muscle performance and motor function, To improve ability to perform ADL's, To increase tolerance to activity/condition/position, To improve performance and independence with ADL's Manual Therapy Techniques to Include: Mobilization, Passive ROM, Soft tissue mobilization For the Purpose of:: To decrease pain, To decrease swelling/inflammation, To increase ROM, To improve nutrient delivery to tissue, To increase oxygenation perfusion, To improve muscle performance and motor function TENS: Yes Cryotherapy (ice pack, ice massage): Yes For the Purpose of:: To decrease pain, To decrease swelling/inflammation, To increase ROM, To improve nutrient delivery to tissue, To increase oxygenation perfusion, To improve muscle performance and motor function Please do not hesitate to contact me at [phone] by phone or if you have questions or concerns regarding this new plan of care! Sincerely, Husam Fox DPT
--- NOTE | 2021-12-19 12:55 | HP.PTREVAL ---
Dr. Roly Chi, DO, It has been my pleasure to treat NIKO BROWN over the last 10 visits for L TKA. Please see the progress note below for an update on the physical therapy plan of care! Subjective: Pt. reports overall doing well. He reports being 75% better overall. He is sore from having PT yesterday. Pt. arrives today walking with cane today. Objective/Function: ROM: 0-0-114deg passively, AROM 0-3-108deg. Pt. had pain at end ranges. Pt. continues to progress, he was more sore today after having PT two days in a row. He is able to bike now with progression on his ROM. Pt.is ambulating much better with and without AD. Pt. does ambulate with slight loss of TKE. I educated him about working on proper techniques and control. Pt. did very well with stair negotiation this date. No increase in symptoms. Plan Plan: Cont. with POC. Work on end range of motion and progression of gait stability and functional activities. As is ROM improved add in gym LE strengthening to progress to HEP. Balance/Gait/Functional tests - Balance/Special Test Scores Lower Extremity Functional Score: 49 TUG Test Time Seconds: 39.8 Tug Test: >30sec.=impaired mobility WOMAC Total Score: 43 WOMAC Percentage: 55.2100 Goals Goal 1:: LTG: Pt. to be I with HEP. Goal Time Frame: 4-6 Weeks Goal Progress: Progressing Goal 2:: STG: to have equal girth measurements between L and R knee, indicating reduced edema. Goal Time Frame: 2-4 Weeks Goal Progress: Progressing Goal 3:: STG: Pt. to have increased PROM of L knee to 0-0-95deg. Goal Time Frame: 2 Weeks Goal Progress: Goal Met Goal 4:: LTG: Pt. to have increased AROM of L knee to at least 0-0-120deg. Goal Time Frame: 4-6 Weeks Goal Progress: Progressing Goal 5:: LTG: Pt. to have increased MMT of LLE to 5/5 throughout. Goal Time Frame: 4-6 Weeks Goal Progress: Progressing Goal 6:: LTG: Pt. to ambulate without AD with normal gait pattern with 0-1/10 pain in L knee. Goal Time Frame: 4-6 Weeks Goal Progress: Progressing Anticipated Interventions Patient/Client Instruction: Educate patient on: Condition, Plan of Care, Risk Factors, Benefits of Fitness Program For the Purpose of:: To improve health and function, To foster healthy habits, To improve decision making, To facilitate caregiver knowledge, To improve self management, To prevent re-injury, To improve ability to perform tasks related to life management Therapeutic Exercise to Include: Strength training, Power training, Balance training, Body mechanics, Postural training, Gait and locomotor training, Passive ROM, Active ROM For the Purpose of:: To decrease pain, To increase ROM, To improve nutrient delivery to tissue, To increase oxygenation perfusion, To improve muscle performance and motor function, To improve ability to perform ADL's, To increase tolerance to activity/condition/position, To improve performance and independence with ADL's Manual Therapy Techniques to Include: Mobilization, Passive ROM, Soft tissue mobilization For the Purpose of:: To decrease pain, To decrease swelling/inflammation, To increase ROM, To improve nutrient delivery to tissue, To increase oxygenation perfusion, To improve muscle performance and motor function TENS: Yes Cryotherapy (ice pack, ice massage): Yes For the Purpose of:: To decrease pain, To decrease swelling/inflammation, To increase ROM, To improve nutrient delivery to tissue, To increase oxygenation perfusion, To improve muscle performance and motor function Please do not hesitate to contact me at [phone] by phone or if you have questions or concerns regarding this new plan of care! Sincerely, Husam Fox DPT
--- NOTE | 2022-01-13 09:52 | HP.PTDCSUM ---
It has been my pleasure to treat NIKO BROWN referred by Dr. Roly Chi DO, with the diagnosis of L TKA for a total of 13 visit(s). Discharge Date: 01/02/22 Please see the following information for a summary of their discharge status. Subjective: Pt. reports being 90% better overall. He is a still a little stiff, but plans on working on this on his own. He reports no pain today. I am able to do everything I want to be able to do. I am walking great. L knee Pain Intensity (Out of 10): 0 % Improvement: 90 Objective/Function: ROM: 0-0-111deg. MMT: 5/5 throughout knee and hip. GAIT: Pt. ambulates without AD. He does have slight lack of TKE during stance phase, but is improving. Improved with VCing. Normal swing phase noted. No pain reported. STAIRS: Normal reciprocal pattern with no HR. No pain noted. TU.2 sec no AD. Goal 1:: LTG: Pt. to be I with HEP. Goal Progress: Goal Met Goal 2:: STG: to have equal girth measurements between L and R knee, indicating reduced edema. Goal Progress: Goal Met Goal 3:: STG: Pt. to have increased PROM of L knee to 0-0-95deg. Goal Progress: Goal Met Goal 4:: LTG: Pt. to have increased AROM of L knee to at least 0-0-120deg. Goal Progress: Progressing Goal 5:: LTG: Pt. to have increased MMT of LLE to 5/5 throughout. Goal Progress: Goal Met Goal 6:: LTG: Pt. to ambulate without AD with normal gait pattern with 0-1/10 pain in L knee. Goal Progress: Progressing Plan: Pt. to be DC to HEP at this point in time. I urged him to continue with ROM stretching and get back to increased walking routine. He did start a gym exercise program as well. Discharge Comments: Pt. was treated for his R TKA. He was treated with ROM, strengthening, gait progression and functional strengthening. He is doing well, a little bit stiff, but improved from pre surgical ROM. He will be DC to HEP at this point in time with focus on ROM, walking progression and strengthening/gym routine. Pt. consents. If there are questions or concerns regarding this patient's physical therapy, please feel free to call me at [phone]. Thank you for the referral of this patient. Sincerely, CLEVE GomezT Balance/Gait/Functional tests - Balance/Special Test Scores Lower Extremity Functional Score: 64 TUG Test Time Seconds: 39.8 Tug Test: >30sec.=impaired mobility WOMAC Total Score: 43 WOMAC Percentage: 55.2100
== END 2022-01-02 19:00 | disposition home or self-care (01) ==
LOC: PT 08:30
PROVIDERS: PCP Family Medicine; Referring Provider Orthopaedic Surgery; Visit Provider Orthopaedic Surgery
DX: Z47.1 Aftercare following joint replacement surgery (principal); M17.12 Unilateral primary osteoarthritis, left knee; Z96.652 Presence of left artificial knee joint
CPT/HCPCS: 97016; 97110; 97161; 97164

== ENCOUNTER 2022-01-15 06:11 | Outpatient (CLI) | payer OTHER, SELFPAY ==
--- NOTE | 2022-01-15 11:51 | NEURO ---
NCS and/or EMG Patient Report Ordering Doctor: Derrell Salmeron DATE OF SERVICE: 01/15/22 Raghu presents for electrodiagnostic testing of the lower limbs. He reports numbness in the toes with burning pain in the lower legs. He denies history of diabetes. Electrodiagnostic findings: Left peroneal motor nerve demonstrates normal distal latency with borderline reduced amplitude and normal conduction velocity. Right peroneal motor nerve demonstrates normal distal latency, amplitude and conduction velocity. Normal tibial motor response bilaterally. H reflex is prolonged bilaterally. Prolonged sural latency bilaterally. Prolonged superficial peroneal latency bilaterally. Prolonged medial plantar latency bilaterally. On needle EMG, all muscles tested in the lower limbs showed no evidence of denervation with normal motor unit action potentials. Electrodiagnostic impression: This is an abnormal study in the lower limbs 1. Electrodiagnostic findings are suggestive of peripheral polyneuropathy, sensory greater than motor. Etiology of this condition is not known. 2. No electrodiagnostic evidence is noted for lumbosacral radiculopathy.
== END 2022-01-15 23:59 | disposition home or self-care (01) ==
LOC: PSN 06:12
PROVIDERS: PCP Family Medicine; Referring Provider Family Medicine; Visit Provider Family Medicine
DX: G62.9 Polyneuropathy, unspecified (principal)
CPT/HCPCS: 95886; 95913

== ENCOUNTER 2022-02-12 08:27 | Outpatient (CLI) | payer OTHER, SELFPAY ==
[2022-02-12 10:30] LABS: ALB/GLOB Ratio 1.1 RATIO (0.9-2.4); AST(SGOT) 17 U/L (15-37); Alanine Aminotransfer ALT/SGPT 36 U/L (16-61); Albumin, Serum 3.9 g/dL (3.2-5.0); Alkaline Phosphatase 66 U/L (45-117); Anion Gap 5 (5-15); BUN 22 mg/dL (7-18); BUN/Creat Ratio 22.4 RATIO (10-20); Calcium,Total 9.2 mg/dL (8.5-10.1); Chloride 108 mmol/L (98-107); Creatinine, Serum 0.98 mg/dL (0.70-1.30); EST Glomerular Filtration Rate 82 mL/min (>60); Est Glom Filt Rate - Afr Amer 99 mL/min (>60); Globulin 3.4 g/dL (2.2-4.2); Glucose 204 mg/dL (74-106); Potassium 3.9 mmol/L (3.5-5.1); Protein, Total 7.3 g/dL (6.4-8.2); Sodium Level 137 mmol/L (136-145); Thyroid Stim Hormone (TSH) 1.74 uIU/mL (0.358-3.74)
[2022-02-12 10:33] LABS: Hemoglobin A1c 6.5 % (3.8-5.6)
[2022-02-12 11:12] LABS: Vitamin B12 418 pg/mL (211-911)
[2022-02-13 14:50] LABS: ANTINUCLEAR ANTIBODIES DIRECT Negative (Negative)
[2022-02-27 00:07] LABS: PROEL- A/G Ratio 1.4 (0.7-1.7); PROEL- Albumin 4.2 g/dL (2.9-4.4); PROEL- Alpha-1 Globulin 0.2 g/dL (0.0-0.4); PROEL- Alpha-2 Globulin 0.7 g/dL (0.4-1.0); PROEL- Gamma Globulin 0.9 g/dL (0.4-1.8); PROEL- Globulin, Total 2.9 g/dL (2.2-3.9); PROEL- TOTAL PROTEIN 7.1 g/dL (6.0-8.5)
[2022-02-27 08:56] LABS: VITAMIN B6 27.9 ug/L (5.3-46.7)
== END 2022-02-12 23:59 | disposition home or self-care (01) ==
LOC: MFPLAB 08:28
PROVIDERS: PCP Family Medicine; Referring Provider Family Medicine; Visit Provider Family Medicine
DX: G62.9 Polyneuropathy, unspecified (principal); R73.02 Impaired glucose tolerance (oral); I10 Essential (primary) hypertension
CPT/HCPCS: 36415; 80053; 82607; 83036; 84165; 84207; 84425; 84443; 86038

== ENCOUNTER 2022-03-04 11:42 | Outpatient (CLI) | payer OTHER, SELFPAY ==
[2022-03-17 14:20] LABS: Vitamin B1, Thiamine 225.4 nmol/L (66.5-200.0)
== END 2022-03-04 23:59 | disposition home or self-care (01) ==
LOC: MFPLAB 11:43
PROVIDERS: PCP Family Medicine; Referring Provider Family Medicine; Visit Provider Family Medicine
DX: G62.9 Polyneuropathy, unspecified (principal)
CPT/HCPCS: 36415; 84425

== ENCOUNTER 2022-03-18 09:37 | Outpatient (RCR) | payer OTHER, SELFPAY | END 2022-03-22 23:59 | LOC: DC 09:37 | PROVIDERS: PCP Family Medicine; Visit Provider Family Medicine | DX: E11.9 Type 2 diabetes mellitus without complications (principal) | CPT/HCPCS: 97802 ==

== ENCOUNTER → 2022-06-05 | Outpatient (CLI) | payer OTHER, SELFPAY ==
[2022-06-05 12:01] LABS: Absolute Lymphocyte Count 3.33 X10^3/uL (0.83-4.51); Absolute Neutrophil Count 7.6 X10^3/uL (2.0-7.7); Basophil% 0.8 % (0-1); Eosinophil# 0.16 X10^3/uL; Eosinophils% 1.3 % (0-5); Hematocrit 39.9 % (40-54); Hemoglobin 13.5 g/dL (13.0-16.5); Lymphocyte # 3.33 X10^3/ul (0.83-4.51); Lymphocyte % 27.1 % (19-41); Mean Corp Hgb Conc 33.8 g/dL (32-36); Mean Corpuscular Hgb 29.9 pg (27.0-32.0); Mean Corpuscular Volume 88.5 fL (80-94); Mean Platelet Vol. 9.9 fl (6.2-12.0); Monocyte# 1.03 X10^3/uL; Monocyte% 8.4 % (0-10); NRBC Flagged by Analyzer 0 % (0-5); Neutrophil # 7.58 X10^3/uL (2.7-7.7); Neutrophil % 61.7 % (47-70); Platelet Count 214 K/mm3 (150-450); RBC Distribution Width CV 12.6 % (11.6-14.6); RBC Distribution Width SD 40.9 fl (35.1-43.9); Red Blood Count 4.51 M/mm3 (4.6-6.2); White Blood Count 12.3 K/mm3 (4.4-11.0)
[2022-06-05 12:24] LABS: ALB/GLOB Ratio 1.1 RATIO (0.9-2.4); AST(SGOT) 31 U/L (15-37); Alanine Aminotransfer ALT/SGPT 67 U/L (16-61); Albumin, Serum 3.3 g/dL (3.2-5.0); Alkaline Phosphatase 53 U/L (45-117); Anion Gap 6 (5-15); BUN 18 mg/dL (7-18); BUN/Creat Ratio 20.8 RATIO (10-20); Calcium,Total 8.5 mg/dL (8.5-10.1); Chloride 101 mmol/L (98-107); Cholesterol 151 mg/dL (200); Creatinine, Serum 0.86 mg/dL (0.70-1.30); EST Glomerular Filtration Rate 95 mL/min (>60); Est Glom Filt Rate - Afr Amer 115 mL/min (>60); Globulin 3.1 g/dL (2.2-4.2); Glucose 236 mg/dL (74-106); High Density Lipoprotein 49 mg/dL; Potassium 3.5 mmol/L (3.5-5.1); Protein, Total 6.4 g/dL (6.4-8.2); Sodium Level 135 mmol/L (136-145); Triglycerides 225 mg/dL; Very Low Density Lipoprotein 45 mg/dL (5-40)
[2022-06-05 12:55] LABS: Microalbumin,Random Urine 5.3 mg/L (NO RANGE EST.); Microalbumin:Creatinine Ratio 24.4 mg/g CRE (<30 mg/g CRE)
[2022-06-05 15:26] LABS: Hemoglobin A1c 6.5 % (3.8-5.6)
== END | disposition home or self-care (01) ==
LOC: MFPLAB 09:52
PROVIDERS: PCP Family Medicine; Referring Provider Family Medicine; Visit Provider Family Medicine
DX: E11.9 Type 2 diabetes mellitus without complications (principal)
CPT/HCPCS: 36415; 80053; 80061; 82043; 82570; 83036; 85025

== ENCOUNTER 2022-06-17 13:31 | Emergency (ER) | payer OTHER, SELFPAY ==
[2022-06-17 13:32] VITALS: BP 132/82; PULSE 64; RESP 16; TEMP 36.7; O2SAT 97; BMI 35.6
[2022-06-17] MEDS: Lidocaine 1% /Epi 1:100 (20ml) 20 ML Vial INFILT (14:06)
[2022-06-17] MEDS: Diphth,Pertuss(Acell),Tet Vac 0.5 ML Vial IM (14:07)
--- NOTE | 2022-06-17 14:27 | EX.ED.GENINJ ---
HPI History of Present Illness Chief Complaint: Laceration Informant: patient Narrative Narrative: 58-year-old male presenting to the emergency room with right leg laceration. Patient was on a riding mower going up a culvert when it overturned causing a laceration to his anterior right lower leg. Unknown last tetanus. He denies any other injuries. He has been able to bear weight. [facility] Medical History Acute bronchitis Alcohol use Arthritis Bipolar 1 disorder Bipolar disorder Cardiology follow-up encounter Carotid stenosis, bilateral Chest pain Essential hypertension High cholesterol History of echocardiogram History of heart attack History of stress test Hypertension Non-smoker Osteoarthritis of left knee Pharyngitis Prostate disease Seizures Shortness of breath Shoulder pain Wears glasses Home Medications amlodipine 10 mg tablet 10 mg PO DAILY blood pressure 08/07/20 [History Last Taken 11/18/21] lithium carbonate 300 mg capsule 600 mg PO BID mental health 08/07/20 [History Last Taken 11/18/21] metoprolol succinate 50 mg tablet,extended release 24 hr 50 mg PO DAILY heart 08/07/20 [History Last Taken 11/19/21] trazodone 100 mg tablet 1 - 2 mg PO QHS sleep 08/07/20 [History Last Taken 11/18/21] atorvastatin 40 mg tablet 40 mg PO QHS #30 tabs 08/09/20 [Rx Last Taken 11/18/21] gabapentin 100 mg capsule 100 mg PO TID 06/18/21 [History Last Taken 11/18/21] hydrochlorothiazide 25 mg tablet 25 mg PO DAILY 06/18/21 [History Last Taken 11/18/21] aspirin 81 mg chewable tablet 81 mg PO DAILY 10/16/21 [History Last Taken 11/14/21] clopidogrel 75 mg tablet (Plavix) 75 mg PO DAILY 10/16/21 [History Last Taken 11/14/21] Allergy/AdvReac Type Severity Reaction Status Date / Time No Known Allergies Allergy Verified 06/17/22 13:39 Family History Father Myocardial infarction Hypertension Alcoholism Mother Cancer Diabetes Brother Heart disease Hypertension Alcoholism Cancer prostate Grandfather Myocardial infarction CVA (cerebral vascular accident) Carotid arterial disease Surgical History History of arthroscopy of knee History of bursectomy History of carpal tunnel release Social History Smoking Status: Never smoker alcohol intake: current Alcohol type: beer substance use type: does not use ROS ROS ED Constitutional Constitutional ED: Denies chills or weight loss Eyes Eyes: Denies change in vision or diplopia ENT ENT ED: Denies ear pain, rhinorrhea or sore throat Cardiovascular Cardiovascular: Denies chest pain, orthopnea, palpitations or racing heartbeat Respiratory/Chest Respiratory/Chest: Denies cough, dyspnea or orthopnea Gastrointestinal Gastrointestinal: Denies abdominal pain, diarrhea, nausea or vomiting Genitourinary Genitourinary ED: Denies dysuria, hematuria or urinary frequency Musculoskeletal Musculoskeletal: Denies arthralgias or myalgias Integumentary Reports other Details: See HPI ; Denies abscess or rash Neurologic Neurologic: Denies headache(s) or weakness Psychiatric Psychiatric: Denies anxiety, depression, suicidal ideation or suicidal thoughts Endocrine Endocrinology: Denies polydipsia, polyphagia or polyuria Allergic/Immunologic Allergic/Immunologic ED: Denies mouth swelling, tongue swelling or urticaria EXAM Physical Exam Const Vital Signs: 06/17/22 13:32 Temperature 98.0 F Temperature Source Temporal Pulse Rate 64 Respiratory Rate 16 Blood Pressure 132/82 H Blood Pressure Mean 98 Pulse Ox 97 Oxygen Delivery Method Room Air Positive well nourished and well developed General Appearance ED: well developed HEENT Reports normocephalic, head/scalp atraumatic and moist mucous membranes Eyes PERRL and EOMs intact bilaterally Neck no lymphadenopathy, supple and no JVD Resp normal respiratory effort and clear to auscultation bilaterally Cardio regular rate, regular rhythm and no murmurs GI normal to inspection, nondistended, normoactive bowel sounds and non-tender Palpation: soft Back/Spine no CVA tenderness and normal ROM Extremity full ROM Extremity Narrative: No deformity General Extremety ED: Negative for edema General Extremity: Negative for edema Neuro oriented x3 and CN's II-XII intact bilaterally Sensorium / Orientation: alert Motor Exam: strength 5/5 throughout Psych mental status grossly normal Mood & Affect: Negative for depressed or tearful Skin no rashes or lesions noted Skin Narrative: There is a 4 cm linear laceration over the anterior aspect of the mid right leg. There is active arteriole bleeding. Neurovascular intact distal. MDM MDM MDM Narrative Medical decision making narrative: The wound was locally anesthetized using 1% lidocaine with epinephrine. This caused enough vasoconstriction of the arterial that the bleeding stopped. I was unable to identify a vessel to tie off. The wound appears clean. No foreign bodies identified. No visualization of the bone. The wound was closed using 8 simple interrupted 3-0 Ethilon sutures. This provided good wound edge approximation. Wound was dressed and Kirk wrap applied. Tetanus was updated with Adacel. Stitches will need to be removed in 10 days. Discharge Plan Triage Chief Complaint: Laceration ED Provider: Andrea Chávez Dx/Rx/DC Orders Clinical Impression: Contact with powered lawnmower as cause of accidental injury, Laceration of leg, Anticoagulant long-term use Instructions: ED Laceration: All Closures Prescriptions: No Action lithium carbonate 300 mg capsule 600 mg PO BID trazodone 100 mg tablet 1 - 2 mg PO QHS metoprolol succinate 50 mg tablet extended release 24 hr 50 mg PO DAILY amlodipine 10 mg tablet 10 mg PO DAILY hydrochlorothiazide 25 mg tablet 25 mg PO DAILY gabapentin 100 mg capsule 100 mg PO TID atorvastatin 40 MG tablet 40 mg PO QHS Qty: 30 0RF clopidogrel [Plavix] 75 mg tablet 75 mg PO DAILY Hold Instructions: May resume day after completion of blood thinner aspirin 81 mg Tablet,Chewable 81 mg PO DAILY Hold Instructions: May resume day after surgery Primary Care Provider: Derrell Salmeron Referrals: Derrell Salmeron MD [Primary Care Provider] - 10 Day for suture removal Disposition Disposition: Home, Self Care
== END 2022-06-17 14:39 | disposition home or self-care (01) ==
LOC: ED 14:36
PROVIDERS: Emergency Provider Emergency Medicine; PCP Family Medicine; Visit Provider Emergency Medicine
DX: S81.811A Laceration without foreign body, right lower leg, initial encounter (principal); I10 Essential (primary) hypertension; E78.00 Pure hypercholesterolemia, unspecified; I25.2 Old myocardial infarction; Z23 Encounter for immunization; Z79.82 Long term (current) use of aspirin; Z79.899 Other long term (current) drug therapy; Z79.01 Long term (current) use of anticoagulants; X58.XXXA Exposure to other specified factors, initial encounter
CPT/HCPCS: 12002; 90715; 96372; 99283

== ENCOUNTER → 2022-06-18 | Outpatient (CLI) | payer OTHER, SELFPAY ==
--- NOTE | 2022-06-18 09:39 | STRESSREP ---
Stress Test Report Pharmacologic myocardial perfusion stress test. 61-year-old male with a history of chest pain. Resting EKG demonstrates normal sinus rhythm with a rate of 65 bpm normal intervals are noted resting blood pressure is 142/86 mmHg. 0.4 mg of regadenoson was infused per usual protocol followed by Intravenous saline flush injection continuous EKG monitoring was performed. The patient maintained sinus rhythm throughout the recording. The maximum heart rate was 72 bpm which was 45% of max impacted heart rate the maximum workload was 1 metabolic equivalent. Myocardial perfusion protocol. 15.0 mCi of technetium 99m sestamibi was injected at rest. 0.4 mg of regadenoson was infused per usual protocol. At peak infusion 44.8 mCi of technetium 99m sestamibi was injected stress images were obtained stress and rest images were reconstructed and compared in the short axis vertical long and horizontal long axis. Gated images were also obtained to Perfusion SPECT analysis: Review of the stress images demonstrate normal uptake of tracer noted in all areas of the myocardium. The resting images similar demonstrate normal uptake of tracer noted in all areas of the myocardium. No areas of reversibility are noted suggest ischemia and no previous infarct is noted. Gated SPECT analysis: The gated ejection fraction is noted to be 62%. Conclusion: Normal pharmacologic myocardial perfusion stress test. Preserved ejection fraction.
== END | disposition home or self-care (01) ==
PROVIDERS: PCP Family Medicine; Referring Provider Family Medicine; Visit Provider Family Medicine
DX: R94.31 Abnormal electrocardiogram [ECG] [EKG] (principal)
CPT/HCPCS: 78452; 93017; A9500; A4216; J2785

== ENCOUNTER → 2022-06-27 | Outpatient (CLI) | payer OTHER, SELFPAY ==
--- NOTE | 2022-06-27 10:55 | RAD_ITS ---
STUDY: X-RAY - LUMBAR SPINE REASON FOR EXAM: Male, 61 years old. FACET ARTHROPATHY TECHNIQUE: XR Spine Lumbar 2 or 3 Views COMPARISON: None FINDINGS: Normal lumbar lordosis. There is no substantial scoliosis. There is a normal alignment of the vertebrae. Vacuum disc phenomenon. Discogenic endplate changes at L5-S1. There is multilevel endplate spondylosis of the lumbar vertebrae. There is multi-level degenerative disc disease with multi-level disc space narrowing. There are atherosclerotic vascular calcifications. The soft tissue structures are unremarkable. RAD/Lumbar Spine 2 or 3 Views IMPRESSION: Degenerative changes of the spine, as detailed above. Electronically Signed: Xavier Londono MD at 19:29 EDT ,
== END | disposition home or self-care (01) ==
LOC: MTRAD 10:53
PROVIDERS: PCP Family Medicine; Referring Provider Family Medicine; Visit Provider Family Medicine
DX: M47.819 Spondylosis without myelopathy or radiculopathy, site unspecified (principal)
CPT/HCPCS: 72100

== ENCOUNTER → 2022-08-07 | Outpatient (CLI) | payer OTHER, SELFPAY ==
[2022-08-07 10:02] LABS: Absolute Lymphocyte Count 4.95 X10^3/uL (0.83-4.51); Absolute Neutrophil Count 9.6 X10^3/uL (2.0-7.7); Basophil# 0.14 X10^3/uL; Basophil% 0.9 % (0-1); Eosinophils% 1.2 % (0-5); Hematocrit 39.9 % (40-54); Hemoglobin 13.4 g/dL (13.0-16.5); Lymphocyte # 4.95 X10^3/ul (0.83-4.51); Lymphocyte % 30.3 % (19-41); Mean Corp Hgb Conc 33.6 g/dL (32-36); Mean Corpuscular Hgb 29.5 pg (27.0-32.0); Mean Corpuscular Volume 87.9 fL (80-94); Mean Platelet Vol. 9.8 fl (6.2-12.0); Monocyte# 1.28 X10^3/uL; Monocyte% 7.8 % (0-10); NRBC Flagged by Analyzer 0 % (0-5); Neutrophil # 9.56 X10^3/uL (2.7-7.7); Neutrophil % 58.4 % (47-70); Platelet Count 269 K/mm3 (150-450); RBC Distribution Width CV 13.2 % (11.6-14.6); RBC Distribution Width SD 42.3 fl (35.1-43.9); Red Blood Count 4.54 M/mm3 (4.6-6.2); White Blood Count 16.4 K/mm3 (4.4-11.0)
[2022-08-07 10:23] LABS: Hemoglobin A1c 6.8 % (3.8-5.6)
[2022-08-07 10:47] LABS: AST(SGOT) 15 U/L (15-37); Alanine Aminotransfer ALT/SGPT 35 U/L (16-61); Albumin, Serum 3.4 g/dL (3.2-5.0); Alkaline Phosphatase 67 U/L (45-117); Anion Gap 7 (5-15); BUN 20 mg/dL (7-18); BUN/Creat Ratio 20.8 RATIO (10-20); Calcium,Total 8.9 mg/dL (8.5-10.1); Chloride 103 mmol/L (98-107); Cholesterol 117 mg/dL (200); Creatinine, Serum 0.96 mg/dL (0.70-1.30); EST Glomerular Filtration Rate 84 mL/min (>60); Est Glom Filt Rate - Afr Amer 101 mL/min (>60); Globulin 3.3 g/dL (2.2-4.2); Glucose 188 mg/dL (74-106); High Density Lipoprotein 45 mg/dL; Potassium 3.5 mmol/L (3.5-5.1); Protein, Total 6.7 g/dL (6.4-8.2); Sodium Level 139 mmol/L (136-145); Triglycerides 225 mg/dL; Very Low Density Lipoprotein 45 mg/dL (5-40)
== END | disposition home or self-care (01) ==
LOC: MFPLAB 09:02
PROVIDERS: PCP Family Medicine; Referring Provider Family Medicine; Visit Provider Family Medicine
DX: E11.9 Type 2 diabetes mellitus without complications (principal)
CPT/HCPCS: 36415; 80053; 80061; 83036; 85025

== ENCOUNTER → 2022-09-04 | Outpatient (CLI) | payer OTHER, SELFPAY ==
--- NOTE | 2022-09-04 07:48 | CDU_ITS ---
Reason For Study: carotid stenosis Rt. Velocities/BP Lt. Velocities/BP Prox CCA 110.2/24.5 cm/sec. Prox CCA 97.1/20.1 cm/sec. Mid CCA 75.1/17.9 cm/sec. Mid CCA 96.0/22.3 cm/sec. Dist CCA 87.2/9.1 cm/sec. Dist CCA 104.7/24.5 cm/sec. Prox ICA 81.7/20.1 cm/sec. Prox ICA 61.8/17.6 cm/sec. Mid ICA 67.4/19.0 cm/sec. Mid ICA 80.2/24.9 cm/sec. Dist ICA 81.7/25.6 cm/sec. Dist ICA 77.7/29.8 cm/sec. Rt. ICA/CCA = 1.1. Lt. ICA/CCA = .8. Prox ECA 92.7/11.3 cm/sec. Prox ECA 107.2/18.8 cm/sec. Rt. Vert. 43.2/12.4 cm/sec. Lt. Vert. 44.3/11.3 cm/sec. Right Extracranial There is homogeneous, smooth atherosclerotic plaque noted in the right common carotid artery. There is heterogeneous, irregular atherosclerotic plaque noted in the right internal carotid artery. There is heterogeneous, irregular atherosclerotic plaque noted in the right external carotid artery. Antegrade flow is noted in the right vertebral artery. There is heterogeneous, irregular atherosclerotic plaque noted in the right bulb. Mobile mass noted in the bulb measuring .29 x .32 cm. Left Extracranial There is homogeneous, smooth atherosclerotic plaque noted in the left common carotid artery. There is heterogeneous, smooth atherosclerotic plaque noted in the left internal carotid artery. There is intimal thickening but no significant atherosclerotic plaque noted in the left external carotid artery. Antegrade flow is noted in the left vertebral artery. Procedure Carotid Duplex 24313. This is a Carotid Duplex examination using B-mode, color flow and specral Doppler. The exam was diagnostic. Exam performed in department. VL/Carotid Duplex Ultrasound Interpretation Summary Irregular calcific plaque within the right carotid bulb and proximal internal c arotid artery. There appears to be a mobile mass within the right carotid bulb measuring 0.29 x 0.32 cm in diameter Less than 50% stenosis right internal carotid artery Less than 50% stenosis right external carotid artery Smooth plaque within the proximal left internal carotid artery with less than 5 0% stenosis Less than 50% stenosis left external carotid artery Patent antegrade vertebral arteries bilaterally The mobile plaque in the right carotid bulb appears to have previously been see n September 04, 2021 and October 23, 2020 and August 08, 2020 Ordering Physician: Randall Gilbert Performed By: Ángel Benitez, RVT
== END | disposition home or self-care (01) ==
PROVIDERS: PCP Family Medicine; Referring Provider Surgery; Visit Provider Surgery
DX: I65.23 Occlusion and stenosis of bilateral carotid arteries (principal)
CPT/HCPCS: 93880

== ENCOUNTER → 2022-09-10 | Outpatient (CLI) | payer OTHER, SELFPAY ==
[2022-09-10 12:00] LABS: Absolute Lymphocyte Count 2.26 X10^3/uL (0.83-4.51); Absolute Neutrophil Count 7.7 X10^3/uL (2.0-7.7); Basophil# 0.12 X10^3/uL; Basophil% 1.1 % (0-1); Eosinophil# 0.15 X10^3/uL; Eosinophils% 1.3 % (0-5); Hematocrit 39.4 % (40-54); Hemoglobin 13.5 g/dL (13.0-16.5); Lymphocyte # 2.26 X10^3/ul (0.83-4.51); Lymphocyte % 20.1 % (19-41); Mean Corp Hgb Conc 34.3 g/dL (32-36); Mean Corpuscular Hgb 30.4 pg (27.0-32.0); Mean Corpuscular Volume 88.7 fL (80-94); Mean Platelet Vol. 10.1 fl (6.2-12.0); Monocyte# 0.95 X10^3/uL; Monocyte% 8.4 % (0-10); NRBC Flagged by Analyzer 0 % (0-5); Neutrophil # 7.72 X10^3/uL (2.7-7.7); Neutrophil % 68.6 % (47-70); Platelet Count 262 K/mm3 (150-450); RBC Distribution Width CV 13.7 % (11.6-14.6); RBC Distribution Width SD 44.1 fl (35.1-43.9); Red Blood Count 4.44 M/mm3 (4.6-6.2); White Blood Count 11.3 K/mm3 (4.4-11.0)
[2022-09-10 13:03] LABS: Vitamin B12 478 pg/mL (211-911)
[2022-09-10 13:17] LABS: Thyroid Stim Hormone (TSH) 2.58 uIU/mL (0.358-3.74)
[2022-09-12 13:08] LABS: Vitamin B1, Thiamine 213.2 nmol/L (66.5-200.0)
== END | disposition home or self-care (01) ==
LOC: MFPLAB 10:17
PROVIDERS: PCP Family Medicine; Visit Provider Psychiatry & Neurology Neurology
DX: G62.9 Polyneuropathy, unspecified (principal)
CPT/HCPCS: 36415; 82607; 82746; 84425; 84443; 85025

== ENCOUNTER → 2022-09-22 | Outpatient (CLI) | payer OTHER, SELFPAY ==
[2022-09-22 12:26] LABS: Hemoglobin A1c 6.4 % (3.8-5.6)
[2022-09-22 12:35] LABS: Absolute Lymphocyte Count 2.25 X10^3/uL (0.83-4.51); Absolute Neutrophil Count 10.6 X10^3/uL (2.0-7.7); Basophil# 0.11 X10^3/uL; Basophil% 0.8 % (0-1); Eosinophil# 0.33 X10^3/uL; Eosinophils% 2.3 % (0-5); Hematocrit 41.6 % (40-54); Hemoglobin 14.5 g/dL (13.0-16.5); Lymphocyte # 2.25 X10^3/ul (0.83-4.51); Lymphocyte % 15.7 % (19-41); Mean Corp Hgb Conc 34.9 g/dL (32-36); Mean Corpuscular Hgb 30.7 pg (27.0-32.0); Mean Corpuscular Volume 88.1 fL (80-94); Mean Platelet Vol. 10.1 fl (6.2-12.0); Monocyte# 1.06 X10^3/uL; Monocyte% 7.4 % (0-10); NRBC Flagged by Analyzer 0 % (0-5); Neutrophil # 10.55 X10^3/uL (2.7-7.7); Neutrophil % 73.5 % (47-70); Platelet Count 266 K/mm3 (150-450); RBC Distribution Width SD 42.3 fl (35.1-43.9); Red Blood Count 4.72 M/mm3 (4.6-6.2); White Blood Count 14.4 K/mm3 (4.4-11.0)
[2022-09-22 12:41] LABS: ALB/GLOB Ratio 1.1 RATIO (0.9-2.4); AST(SGOT) 21 U/L (15-37); Alanine Aminotransfer ALT/SGPT 35 U/L (16-61); Albumin, Serum 3.9 g/dL (3.2-5.0); Alkaline Phosphatase 67 U/L (45-117); Anion Gap 10 (5-15); BUN 25 mg/dL (7-18); BUN/Creat Ratio 17.2 RATIO (10-20); Calcium,Total 9.6 mg/dL (8.5-10.1); Chloride 101 mmol/L (98-107); Creatinine, Serum 1.45 mg/dL (0.70-1.30); EST Glomerular Filtration Rate 52 mL/min (>60); Est Glom Filt Rate - Afr Amer 63 mL/min (>60); Globulin 3.6 g/dL (2.2-4.2); Glucose 163 mg/dL (74-106); Potassium 3.4 mmol/L (3.5-5.1); Protein, Total 7.5 g/dL (6.4-8.2); Sodium Level 135 mmol/L (136-145); Thyroid Stim Hormone (TSH) 6.49 uIU/mL (0.358-3.74)
== END | disposition home or self-care (01) ==
LOC: MFPLAB 09:27
PROVIDERS: Psychiatry & Neurology Neurology; PCP Family Medicine; Visit Provider Family Medicine
DX: E11.9 Type 2 diabetes mellitus without complications (principal)
CPT/HCPCS: 36415; 80053; 80178; 83036; 84443; 85025

== ENCOUNTER → 2022-09-30 | Outpatient (CLI) | payer OTHER, SELFPAY ==
--- NOTE | 2022-09-30 12:30 | ART_ITS ---
Reason For Study: Decreased Pulses Procedure A bilateral lower extremity continuous wave Doppler with analog waveform analysis and ankle brachial indexes. Left Segmental Pressures Left brachial= 118mmHg. Left posterior tibial artery = 169mmHg. Left dorsalis pedis artery = 160mmHg. Left digit = 133 mmHg. The left posterior tibial artery waveforms are triphasic. The left dorsalis pedis waveforms are triphasic. Right Segmental Pressures Right brachial= 122mmHg. Right posterior tibial artery = 162mmHg. Right dorsalis pedis artery = 155mmHg. Right digit = 166 mmHg. The right posterior tibial artery waveforms are triphasic. The right dorsalis pedis waveforms are triphasic. Indices The right ankle brachial index by the posterior tibial artery is 1.33. The right ankle brachial index by the dorsalis pedis is 1.27. The right digital-brachial index is 1.36. The left ankle brachial index by the posterior tibial artery is 1.39. The left ankle brachial index by the dorsalis pedis is 1.31. The left digital-brachial index is 1.09. VL/Ankle Brachial Index Interpretation Summary Right ADDIE 1.33, normal. TBI and Doppler/PVR waveforms of the right leg normal a t rest. Left ADDIE 1.39, normal. TBI and Doppler/PVR waveforms of the left leg normal at rest. Ordering Physician: Hudson Almanzar Referring Physician: Derrell Salmeron Performed By: Ramón Thomas RVEstevan
== END | disposition home or self-care (01) ==
LOC: CVS 12:30
PROVIDERS: PCP Family Medicine; Referring Provider Psychiatry & Neurology Neurology; Visit Provider Psychiatry & Neurology Neurology
DX: R09.89 Other specified symptoms and signs involving the circulatory and respiratory systems (principal)
CPT/HCPCS: 93922

== ENCOUNTER → 2022-10-08 | Outpatient (CLI) | payer OTHER, SELFPAY ==
--- NOTE | 2022-10-08 08:01 | CT_ITS ---
STUDY: CTA NECK WITH CONTRAST REASON FOR EXAM: Male, 62 years old. Bilateral CAROTID STENOSIS. Hypertension. RADIATION DOSAGE (If Supplied By Facility): CTDIvol = ( 24.16 ) mGy, DLP = ( 778.45 ) mGycm TECHNIQUE: CT angiography with multi-detector data acquisition was performed from the aortic arch to the skull base following intravenous administration of IV 100mL Isovue-370. MIP images were reconstructed from the axial data set. Post-processing of the angiographic images was performed, with multiplanar reformation and 3D reconstruction. Individualized dose optimization techniques were used for this CT. COMPARISON: Comparison is made with prior examination of 08/08/2020. FINDINGS: Mild enlargement of the thyroid gland. AORTIC ARCH: There is mild degree of atherosclerotic calcific plaque formation of the aortic arch and great vessels arising from the aortic arch, without a hemodynamically significant stenosis. There is a normal origin of the brachiocephalic, left common carotid, and left subclavian arteries. Atherosclerotic calcified plaque formation at the level of the right brachiocephalic artery. RIGHT CAROTID ARTERIES: Normal right common carotid artery (CCA). Normal right common carotid bulb. There is extensive atherosclerotic plaque formation of the origin of the right internal carotid artery with an estimated stenosis of greater than 70%. Normal visualized cervical portion of the right internal carotid artery. Normal origin of the right external carotid artery (ECA). LEFT CAROTID ARTERIES: Normal left common carotid artery (CCA). Normal left common carotid bulb. There is mild atherosclerotic plaque formation of the origin of the left internal carotid artery with less than 50% cross sectional diameter stenosis. Normal visualized cervical portion of the left internal carotid artery. Normal origin of the left external carotid artery (ECA). VERTEBRAL ARTERIES: Normal bilateral vertebral arteries. CT/CTA Neck W/WO Contrast IMPRESSION: High-grade stenosis at the origin of the right internal carotid artery. Mild plaque formation at the origin of the left internal carotid artery. Electronically Signed: Sha Quinn MD at 9:35 EST ,
--- NOTE | 2022-10-08 12:01 | RAD_ITS ---
STUDY: X-RAY CHEST REASON FOR EXAM: Male, 62 years old. Acute bronchitis. TECHNIQUE: Frontal and lateral views of the chest. COMPARISON: August 20, 2021. FINDINGS: The lungs are clear and expanded. There is no demonstrated pleural abnormality. Normal size heart. Normal mediastinum and cas. Normal visualized pulmonary arteries. Normal visualized aortic arch and descending thoracic aorta. Stable diffuse thoracic spondylosis. Normal visualized ribs, clavicles, and shoulders. There is no demonstrated abnormality of the visualized soft tissue structures of the upper abdomen. RAD/Chest PA and Lateral IMPRESSION: No active or acute cardiopulmonary disease. Electronically Signed: Alfa Bains, at 13:50 EST ,
== END | disposition home or self-care (01) ==
PROVIDERS: PCP Family Medicine; Referring Provider Surgery Vascular Surgery; Visit Provider Surgery Vascular Surgery
DX: I65.23 Occlusion and stenosis of bilateral carotid arteries (principal); J20.9 Acute bronchitis, unspecified
CPT/HCPCS: 70498; 71046; Q9967

== ENCOUNTER 2022-10-10 08:00 | Outpatient (RCR) | payer OTHER, SELFPAY ==
--- NOTE | 2022-08-27 10:57 | HP.PTEVAL_ITS ---
Patient's Visit Information NIKO BROWN is a 62 year old M referred to Physical Therapy by SHIKHA Ramirez with a diagnosis of lumbo sacaral IVDD, lumbosacral spondylosis, lumbosacral stenosis. Date of Evaluation: 08/26/22 Physical Therapist: Husam Fox DPT - Visit Plan Frequency: 2x /Week Duration: 3 Weeks Plan: Start with flexion stretching to reduce symptom (rescue maneuver). Pt. progress neutral spine core stability and education on proper posture and body mechanics, - Subjective Pt. is here today for his initial evaluation with diagnosis of lumbo sacaral IVDD, lumbosacral spondylosis, lumbosacral stenosis, lumbosacral radiculopathy, arthropathy of lumbar facet. Pt. reports having gradual increase in symptoms for the last 20+ years, but recently has been getting much worse. He repots increased pain with sitting in his reclining chair, better in a straight chair. Increased pain in AMs. Pt. has had xray showing arthritis and DDD of lumosacaral region, but not MRI at this point. He is currently scheduled to have an injection next Thursday09/05/22. Pt. denies changes in B/B and no pain in saddle region. His pain is located central to low back, but does radiate into gluteal region, R worse than L. He does complain of pain in R great toe and B LE neuropathy as well. He is hopeful to reduce symptoms in order to get back to all household work and recreational activities without limitations. - Pain Lumbar spine Pain Intensity (Out of 10): 5 Pain Intensity Range: 0, 5 BLEs Pain Intensity (Out of 10): 4 Pain Intensity Range: 0, 4 - Objective POSTURE: Pt. has normal wt. shifting. No lateral shift noted. He has marked anterior pelvic tilt in stance, which slight increase in sway back posture. PALPATION: Pt. has tenderness along B lumbar erector spinae, pain along L2-S1 with hypomobility noted. Pt. has some mild tenderness in R glute, but no pain with palpation of distal LEs. NEURO: pt. has minimal elicited DTR of BLEs including Achilles and patellar. Pt. is able to rise on heels and toes without issues. ROM: LUMBAR SPINE: flexion - min/mod loss increase NW, exten mod/max loss increase NW, Sb mod loss bilat increase NW, rotation min loss NE bilaterally. Pt. has very time B HS. MMT: PT. has 5/5 strength throughout BLEs, excep 4+/5 hip abd and hip extension- increase NW with both. Core strength- poor. He also presented with increased difficulty eric his TA, very difficult to complete PPT. GAIT: Pt. has decent gait mechanics, similar to stance, has slight sway back posture. No antalgic pattern, but does have minimal UE movement suggesting muscle guarding. STAIRS: Pt. is able to negotiate with 2 HR with reciprocal pattern, increase NW at lumbar spine with both ascending and descending. - Special Tests L/S Slump test left side: Negative L/S Slump test right side: Negative L/S Left Straight Leg Raise: Negative L/S Right Straight Leg Raise: Negative Lumbar Standing: Flexion - Mechanical Response: No effect Lumbar Standing: Flexion - Symptoms During Testing: Increases Lumbar Standing: Flexion - Symptoms After Testing: No worse Lumbar Standing: Extension - Mechanical Response: No effect Lumbar Standing: Extension - Symptoms During Testing: Increases Lumbar Standing: Extension - Symptoms After Testing: Worse Lumbar Standing: Right Side Glides - Mechanical Response: No effect Lumbar Standing: Right Side [place] - Symptoms During Testing: Increases Lumbar Standing: Right Side [place] - Symptoms After Testing: No worse Lumbar Standing: Left Side [place] - Mechanical Response: No effect Lumbar Standing: Left Side [place] - Symptoms During Testing: Increases Lumbar Standing: Left Side [place] - Symptoms After Testing: No worse Lumbar Lying: Flexion - Mechanical Response: No effect Lumbar Lying: Flexion - Symptoms During Testing: Decreases Lumbar Lying: Flexion - Symptoms After Testing: No better Lumbar Lying: Extension - Mechanical Response: No effect Lumbar Lying: Extension - Symptoms During Testing: Increases Lumbar Lying: Extension - Symptoms After Testing: Worse Lumbar Static: Slouched Sit - Mechanical Response: No effect Lumbar Static: Slouched Sit - Symptoms During Testing: Decreases Lumbar Static: Slouched Sit - Symptoms After Testing: No better Lumbar Static: Sitting Erect - Mechanical Response: No effect Lumbar Static: Sitting Erect - Symptoms During Testing: Increases Lumbar Static: Sitting Erect - Symptoms After Testing: No worse Lumbar Static:Lying Prone in Extension - Mechanical Response: No effect Lumbar Static: Lying Prone in Extension - Sx During Testing: Increases Lumbar Static: Lying Prone in Extension - Sx After Testing: Worse - Balance/Special Test Scores Oswestry Low Back Score: 24 - Goals Goal 1:: LTG: Pt. to be I with HEP. Goal Time Frame: 4-6 Weeks Goal 2:: STG: Pt. to have increased lumbar spine ROM without increase in symptoms. Goal Time Frame: 2-4 Weeks Goal 3:: LTG: Pt. to have increased core and hip strength by 1 grade to reduce stress to lumbar with all recreational and ADLs. Goal Time Frame: 4-6 Weeks Goal 4:: STG: Pt. to be able to sleep throughout the night with 0-2/10 pain allowing for increased quality of life. Goal Time Frame: 2-4 Weeks Goal 5:: LTG: Pt. to be able to complete all rock splitter and recreational activities with 0-2/10 pain in lumbar spine. Goal Time Frame: 4-6 Weeks - Rehabilitation Potential Physical Therapy Diagnosis: Pt. is here today for his initial evaluation with diagnosis of lumbo sacaral IVDD, lumbosacral spondylosis, lumbosacral stenosis, lumbosacral radiculopathy, arthropathy of lumbar facet. Pt. has marked hypomobility, increased pain, marked core weakness. Pt. would benefit from PT to address the above limitations in order to reduce symptoms allowing for improved quality of life. Rehabilitation Potential: Good - Anticipated Interventions Patient/Client Instruction: Educate patient on: Condition, Plan of Care, Risk Factors, Benefits of Fitness Program For the Purpose of:: To improve decision making, To facilitate caregiver knowledge, To improve self management, To prevent re-injury, To improve ability to perform tasks related to life management Therapeutic Exercise to Include: Strength training, Power training, Postural training, Flexibilty training, Dynamic Lumbar Stabilization, Monika Exercises For the Purpose of:: To decrease pain, To decrease swelling/inflammation, To increase ROM, To improve nutrient delivery to tissue, To improve muscle performance and motor function, To improve performance and independence with ADL's, To decrease level of supervision to perform tasks, To improve ability of physical actions for home/community/work/leisure, To decrease soft tissue restriction, To increase flexibility/ROM Manual Therapy Techniques to Include: Mobilization, Functional dry needling For the Purpose of:: To decrease pain, To decrease swelling/inflammation, To increase ROM, To improve nutrient delivery to tissue Ultrasound (thermal/non thermal): Yes Thank you for the opportunity to evaluate your patient. For Medicare and Medicare HMO plans, please review the plan of care and approve it. It will need to be FAXED BACK to us at [phone] for Medicare purposes. For Medicare only, by signing this I certify the plan of care. Please let me know if there are questions or concerns regarding this plan of care. Physician Signature: Date:
--- NOTE | 2022-10-10 10:32 | HP.PTDCSUM_ITS ---
It has been my pleasure to treat NIKO BROWN referred by SHIKHA Ramirez, with the diagnosis of lumbo sacaral IVDD, lumbosacral spondylosis, lumbosacral stenosis for a total of 8 visit(s). Discharge Date: 10/10/22 Please see the following information for a summary of their discharge status. Subjective: Pt. reports continued to soreness. He is limited with his ability to complete ADLs and light work out side. He reports having having much improvement with PT at this point in time. He is still having pain in lumbar spine and occasional pain in B great toes. Lumbar spine Pain Intensity (Out of 10): 4 BLEs Pain Intensity (Out of 10): 0 % Improvement: 0 Objective/Function: MMT: LEs: 5/5 throughout distal LEs, 4/5 B hips. ROM: lumbar spine: flexion min loss increase NW, extension min loss increase NW, rotation min loss bilat increase NW, SB min loss bilat increase NW. POSTURE: pt. has decreased lumbar lordosis in stance. He has general flexed posture. GAIT: Pt. has fairly normal gait pattern, slight reduction in arm swing. STAIRS: reduced tempo, use of BHR no increase in symptoms. Pt. still has a negative slump test. He does complain about tingling in his feet, worse periodically in B toes. Overall he has not made much progress with PT. He continues to be limited with end range of lumbar mobility. He has weakness with core stability. He is limited with light ADLs secondary to pain. At this point in time I think an MRI would be warranted to rule out more sinister pathology. Goal 1:: LTG: Pt. to be I with HEP. Goal Progress: Goal Met Goal 2:: STG: Pt. to have increased lumbar spine ROM without increase in symptoms. Goal Progress: Not Progressing Goal 3:: LTG: Pt. to have increased core and hip strength by 1 grade to reduce stress to lumbar with all recreational and ADLs. Goal Progress: Not Progressing Goal 4:: STG: Pt. to be able to sleep throughout the night with 0-2/10 pain allowing for increased quality of life. Goal Progress: Not Progressing Goal 5:: LTG: Pt. 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 Goal Progress: Not Progressing Plan: DC to physician back Discharge Comments: Pt. was treated with ROM and strengthening of lumbar spine and corresponding musculature. Pt. has not had as good of a response form therapy as I would have liked. Pt. is still limited with his overall tolerance to light ADLs. I gave him some exercises that I want him to continue and I urged him to continue to walk and stay active. I am DCing him back to physician at this point in time. If there are questions or concerns regarding this patient's physical therapy, please feel free to call me at [phone]. Thank you for the referral of this patient. Sincerely, Husam Rehman Sipos, DPT Balance/Gait/Functional tests - Balance/Special Test Scores Oswestry Low Back Score: 21
== END 2022-10-10 12:30 | disposition home or self-care (01) ==
LOC: PT 08:00
PROVIDERS: PCP Family Medicine; Referring Provider Nurse Practitioner Family; Visit Provider Nurse Practitioner Family
DX: M54.2 Cervicalgia (principal); M54.50 Low back pain, unspecified
CPT/HCPCS: 97110; 97161; 97164

== ENCOUNTER → 2022-10-29 | Outpatient (CLI) | payer OTHER, SELFPAY | END | disposition home or self-care (01) | PROVIDERS: PCP Family Medicine; Referring Provider Psychiatry & Neurology Neurology; Visit Provider Psychiatry & Neurology Neurology | DX: G25.0 Essential tremor (principal) | CPT/HCPCS: 36415; 82140 ==

== ENCOUNTER → 2022-10-30 | Outpatient (CLI) | payer OTHER, SELFPAY ==
--- NOTE | 2022-10-30 09:45 | RAD_ITS ---
STUDY: X-RAY - ORBITS REASON FOR EXAM: Male, 62 years old. History of metal removed from eye TECHNIQUE: 2 view(s) of the orbits were obtained. COMPARISON: None. FINDINGS: Normal bilateral orbits without a metallic orbital foreign body. Normal visualized facial bones. Mucosal thickening of the maxillary sinus bilaterally The soft tissue structures are unremarkable. RAD/Orbits for Foreign Body IMPRESSION: No demonstrated metallic orbital foreign body. The patient is cleared for an MRI examination. Mucosal thickening of the maxillary sinuses bilaterally. Electronically Signed: Sha Quinn MD at 10:32 EST ,
== END | disposition home or self-care (01) ==
LOC: MTRAD 09:45
PROVIDERS: PCP Family Medicine; Referring Provider Psychiatry & Neurology Neurology; Visit Provider Psychiatry & Neurology Neurology
DX: Z98.890 Other specified postprocedural states (principal)
CPT/HCPCS: 70030

== ENCOUNTER → 2022-11-03 | Outpatient (CLI) | payer OTHER, SELFPAY ==
[2022-11-03 12:26] LABS: Absolute Lymphocyte Count 2.88 X10^3/uL (0.83-4.51); Absolute Neutrophil Count 9.2 X10^3/uL (2.0-7.7); Basophil# 0.13 X10^3/uL; Eosinophil# 0.31 X10^3/uL; Eosinophils% 2.3 % (0-5); Hematocrit 38.9 % (40-54); Hemoglobin 12.8 g/dL (13.0-16.5); Lymphocyte # 2.88 X10^3/ul (0.83-4.51); Lymphocyte % 21.2 % (19-41); Mean Corp Hgb Conc 32.9 g/dL (32-36); Mean Corpuscular Hgb 29.4 pg (27.0-32.0); Mean Corpuscular Volume 89.2 fL (80-94); Mean Platelet Vol. 10.1 fl (6.2-12.0); Monocyte# 1.02 X10^3/uL; Monocyte% 7.5 % (0-10); NRBC Flagged by Analyzer 0 % (0-5); Neutrophil # 9.15 X10^3/uL (2.7-7.7); Neutrophil % 67.1 % (47-70); Platelet Count 286 K/mm3 (150-450); RBC Distribution Width CV 13.1 % (11.6-14.6); RBC Distribution Width SD 42.3 fl (35.1-43.9); Red Blood Count 4.36 M/mm3 (4.6-6.2); White Blood Count 13.6 K/mm3 (4.4-11.0)
[2022-11-03 12:50] LABS: Microalbumin,Random Urine 5.3 mg/L (NO RANGE EST.); Microalbumin:Creatinine Ratio 6.8 mg/g CRE (<30 mg/g CRE)
[2022-11-03 12:58] LABS: Hemoglobin A1c 6.4 % (3.8-5.6)
[2022-11-03 13:03] LABS: ALB/GLOB Ratio 1.2 RATIO (0.9-2.4); AST(SGOT) 20 U/L (15-37); Alanine Aminotransfer ALT/SGPT 39 U/L (16-61); Albumin, Serum 3.5 g/dL (3.2-5.0); Alkaline Phosphatase 62 U/L (45-117); Anion Gap 7 (5-15); BUN 11 mg/dL (7-18); BUN/Creat Ratio 12.2 RATIO (10-20); Calcium,Total 8.7 mg/dL (8.5-10.1); Chloride 103 mmol/L (98-107); Cholesterol 92 mg/dL (200); EST Glomerular Filtration Rate 90 mL/min (>60); Est Glom Filt Rate - Afr Amer 109 mL/min (>60); Glucose 165 mg/dL (74-106); High Density Lipoprotein 39 mg/dL; Protein, Total 6.5 g/dL (6.4-8.2); Sodium Level 139 mmol/L (136-145); Triglycerides 144 mg/dL; Very Low Density Lipoprotein 29 mg/dL (5-40)
== END | disposition home or self-care (01) ==
LOC: MFPLAB 09:51
PROVIDERS: PCP Family Medicine; Visit Provider Family Medicine
DX: E11.9 Type 2 diabetes mellitus without complications (principal)
CPT/HCPCS: 36415; 80053; 80061; 82043; 82570; 83036; 85025

== ENCOUNTER → 2022-11-04 | Outpatient (CLI) | payer OTHER, SELFPAY ==
--- NOTE | 2022-11-04 09:43 | MRI_ITS ---
STUDY: MRI CERVICAL SPINE WITHOUT CONTRAST REASON FOR EXAM: Male, 62 years old. Neck pain TECHNIQUE: Standardized fat and water weighted pulse sequences were obtained in the sagittal and axial planes. T2 axial images were not provided unless it was not performed. COMPARISON: CTA neck 10/08/2022. CT cervical spine without contrast 12/21/2018. FINDINGS: Normal foramen magnum and brainstem-cervical cord junction. Normal craniovertebral junction. Normal anterior atlantoaxial articulation. Normal odontoid process. Normal cervical lordosis. Normal vertebral bodies and posterior osseous elements. C2-3: Normal endplates. Normal disc height, signal and morphology. Normal central canal and intervertebral neural foramina. C3-4: Normal endplates. Normal disc height, signal and morphology. Normal central canal and intervertebral neural foramina. C4-5: Normal endplates. Normal disc height, signal and morphology. Normal central canal and intervertebral neural foramina. C5-6: Normal endplates. Minimal disc space height narrowing. Normal central canal. Pronounced stenosis of the intervertebral neural foramina due to osteophytes arising from the uncovertebral joints. C6-7: Normal endplates. Moderate disc space height narrowing. Normal central canal. Mild stenosis of the right intervertebral neural foramen. Pronounced stenosis of the left intervertebral neural foramen. C7-T1: Normal endplates. Normal disc height, signal and morphology. Normal central canal and intervertebral neural foramina. T1-T2, T2-T3 and T3-T4: (Sagittal only). Normal endplates. Normal disc height, signal and morphology. Normal central canal and intervertebral neural foramina. Normal cervical cord. Normal included upper thoracic spinal cord, brainstem and cerebellum. Normal visualized soft tissue structures. MRI/Spine Cervical (Routine) IMPRESSION: 1. Pronounced stenosis of the C5-C6 intervertebral neural foramina due to osteophytes arising from the uncovertebral joints. 2. Pronounced stenosis of the left C6-C7 intervertebral neural foramen due to prominent osteophyte arising from the left uncovertebral joint. 3. No MRI evidence of cervical extruded disc fragment. 4. Normal cervical spinal cord. 5. No significant interval change when compared to CTA neck of 10/08/2022. Electronically Signed: Denis Balderas MD at 15:48 EST ,
--- NOTE | 2022-11-04 09:43 | MRI_ITS ---
STUDY: MRI LUMBAR SPINE WITHOUT CONTRAST REASON FOR EXAM: Male, 62 years old. Low back pain TECHNIQUE: Standardized fat and water weighted pulse sequences were obtained in the sagittal and axial planes. COMPARISON: Lumbar spine radiographs 06/27/2022. FINDINGS: T11-T12: (Sagittal only). Normal endplates. Normal disc height, hydration and morphology. Normal central canal and bilateral intervertebral neural foramina. T12-L1: (Sagittal only). Normal endplates. Normal disc height, hydration and morphology. Normal central canal and bilateral intervertebral neural foramina. Normal lumbar lordosis. There is no substantial scoliosis. Normal conus medullaris that terminates at the lower L1 vertebral body level. L1-2: Normal endplates. Normal disc height, hydration and morphology. Normal bilateral facet joints. Normal central canal and bilateral lateral recesses. Normal bilateral intervertebral neural foramina. L2-3: Normal endplates. Normal disc height, hydration and morphology. Normal bilateral facet joints. Normal central canal and bilateral lateral recesses. Normal bilateral intervertebral neural foramina. L3-4: Normal endplates. Normal disc height, hydration and morphology. Normal bilateral facet joints. Normal central canal and bilateral lateral recesses. Normal bilateral intervertebral neural foramina. L4-5: Schmorl''s node in the central L4 inferior endplate. Normal L5 superior endplate. Mild disc space height narrowing. Mild ventral extradural defect due to posterior bulging annulus. No significant facet arthropathy. Prominent dorsal epidural lipomatosis. Moderate central canal stenosis with an AP canal diameter of 7.6 mm. Normal bilateral lateral recesses. Mild stenosis of the left intervertebral neural foramen. Normal right intervertebral neural foramen. L5-S1: Mild Modic type II degenerative vertebral marrow fat infiltration underneath the irregular vertebral endplates. Pronounced posterior disc space height narrowing. Mild bilateral degenerative facet arthropathy, left more than right. Normal central canal and bilateral lateral recesses. Moderate stenosis of the bilateral intervertebral neural foramina. Normal visualized sacral ala. Normal visualized paraspinous soft tissue structures. MRI/Spine Lumbar (Routine) IMPRESSION: 1. Moderate central canal stenosis at L4-L5 disc space level with an AP canal diameter of 7.6 mm secondary to prominent dorsal epidural lipomatosis, developmentally short pedicles and posterior bulging annulus. 2. Moderate stenosis of the bilateral L5-S1 intervertebral neural foramina. 3. No MRI evidence of lumbar extruded disc fragment. Electronically Signed: Denis Balderas MD at 16:00 EST ,
== END | disposition home or self-care (01) ==
LOC: MRI 09:43
PROVIDERS: PCP Family Medicine; Visit Provider Psychiatry & Neurology Neurology
DX: M54.2 Cervicalgia (principal); M54.50 Low back pain, unspecified
CPT/HCPCS: 72141; 72148

== ENCOUNTER 2022-11-18 07:07 | Day surgery (SDC) | payer OTHER, SELFPAY ==
[2022-11-18 07:39] VITALS: BP 143/75; PULSE 57; RESP 16; TEMP 36.1; O2SAT 98; BMI 34.2
--- NOTE | 2022-11-18 07:45 | PCM.HP.BLA ---
History and Physical Date of Admission: 11/18/22 Intake Visit Reasons:?Cartoid Stenosis Chief Complaint: carotid stenosis Compliance Specialist Required: No Is patient in pain?: No Allergies No Known Allergies Allergy (Verified 11/05/22 12:21) Medications amlodipine 10 mg tablet 10 mg PO DAILY blood pressure 08/07/20 [History Confirmed 11/05/22] trazodone 100 mg tablet 1 - 2 mg PO QHS sleep 08/07/20 [History Confirmed 11/05/22] atorvastatin 40 mg tablet 40 mg PO QHS #30 tabs 08/09/20 [Rx Confirmed 11/05/22] hydrochlorothiazide 25 mg tablet 25 mg PO DAILY 06/18/21 [History Confirmed 11/05/22] clopidogrel 75 mg tablet (Plavix) 75 mg PO DAILY 10/16/21 [History Confirmed 11/05/22] prednisone 10 mg tablet See Rx Instructions PO QDAY #30 tabs 08/03/22 [Rx Confirmed 11/05/22] accu-check fe plus intradermal 09/10/22 [History Confirmed 11/05/22] acetaminophen 500 mg capsule 500 mg PO Q6H PRN 09/10/22 [History Confirmed 11/05/22] cyclobenzaprine 5 mg tablet 5 mg PO TID PRN 09/10/22 [History Confirmed 11/05/22] dutasteride 0.5 mg capsule (Avodart) 0.5 mg PO DAILY 09/10/22 [History Confirmed 11/05/22] metoprolol succinate 50 mg tablet,extended release 24 hr 100 mg PO DAILY heart 09/10/22 [History Confirmed 11/05/22] lithium carbonate 300 mg capsule 300 mg PO .COMPLEX 09/22/22 [History Confirmed 11/05/22] amitriptyline 25 mg tablet 25 mg PO QHS #30 tabs 10/29/22 [Rx Confirmed 11/05/22] lactulose 10 gram/15 mL oral solution 15 ml PO DAILY #473 mL 10/29/22 [Rx Confirmed 11/05/22] PFSH Medical History? Acute bronchitis Alcohol use Arthritis Bipolar 1 disorder Bipolar disorder Cardiology follow-up encounter Carotid stenosis, bilateral Chest pain Essential hypertension High cholesterol History of echocardiogram History of heart attack History of stress test Hypertension Non-smoker Osteoarthritis of left knee Pharyngitis Prostate disease Seizures Shortness of breath Shoulder pain Wears glasses Surgical History?(Updated 11/05/22 @ 12:20 by Gaye Cifuentes) History of arthroscopy of knee History of bursectomy History of carpal tunnel release History of colonoscopy (~10/2022) Family History? Father Myocardial infarction Hypertension AlcoholismMother Cancer DiabetesBrother Heart disease Hypertension Alcoholism Cancer ?? ? prostate ?? ?Grandfather Myocardial infarction CVA (cerebral vascular accident) Carotid arterial disease Social History? Smoking Status:? Never smoker alcohol intake:? current Alcohol type: beer substance use type:? does not use HPI HPI HPI: 62-year-old gentleman.? He has been seeing Dr. Souleymane Loving regarding carotid occlusive disease.? He is requesting a second opinion.? Records that I have available go back to August 08, 2020 carotid duplex exam.? At that time there was felt to be irregular plaque within the right carotid bulb and a 0.26 x 0.21 cm mobile thrombus.? There was felt to be 50 to 69% stenosis based upon velocity.? A head neck CTA was performed and that suggested calcific plaque at the origin of right internal carotid causing 50 to 69% stenosis.? A small filling defect suggesting small thrombus within the right carotid bulb? identified..? To my understanding nonoperative management was recommended.? The patient then had an additional carotid duplex exam October 23, 2020.? Velocities were not elevated within the right internal carotid artery.? Again a small mobile plaque measuring 0.24 x 0.22 cm was identified but less than 50% stenosis bilaterally.? The patient had his next carotid duplex exam September 04, 2021.? Less than 50% stenosis bilateral internal carotid arteries.? Persistent small mobile plaques 0.25 x 0.25 cm in the right carotid bulb noted.? On September 04, 2020 2 repeat carotid duplex imaging was obtained demonstrating less than 50% stenosis bilateral internal carotid arteries.? There is mild irregular plaque within the right proximal internal carotid artery with a 0.29 x 0.32 cm diameter small mobile plaque.? This appears to be similar to the previous studies.? On October 08, [address] Souleymane Loving the patient had a CTA of the carotids.? Now there was felt to be greater than 70% stenosis of the right internal carotid artery with mild plaque formation of the left internal carotid artery.? I have personally reviewed these images with .? It is my opinion that the degree of stenosis of the right internal carotid would be closer to 50 to 69% rather than greater than 70%.? There is less than 50% stenosis on the left The patient is recently has been seen by Dr. Hudson Almanzar.? Lactulose has been added to the patient's regimen because he has an elevated ammonia level.? Patient apparently complaining of a tremor.? He has multiple medical problems including hyperlipidemia and hypertension and diabetes mellitus and history of myocardial infarction and benign prostatic hypertrophy and bipolar disorder.? He has a history of excessive alcohol use.? He has neuropathic pain.? 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 Carlos Storey. The patient also apparently has an elevated TSH and is to be following up with primary care.? This is felt to possibly be secondary to his lithium treatment. I have seen him most recently on October 24, 2022.? This was in follow-up of a personal history of multiple colon polyps.? November 12, 2021 he had a colonoscopy work 8 colonic polyps tubular adenomas were removed.? He is scheduled for a future colonoscopy. Patient denies any TIAs or strokes.? He is on clopidogrel because of previous myocardial infarction.? By report he does not have a coronary stent in place. It is of note that Dr. Hudson Almanzar has expressed concerned about this mobile plaque in the patient's right carotid as well ROS General General: No weight change, appetite, fatigue, colon cancer, breast cancer or weakness HEENT HEENT: No difficulty swallowing, eye injury, eye surgery, swollen glands or hoarseness Endo Endocrine: Yes diabetes mellitus; No thyroid disease, thyroid cancer, Hair loss, heat intolerance or cold intolerance Skin Skin: No rash or changing moles Breast Breast: No left breast lump, right breast lump, nipple discharge, breast pain, abnormal mammogram, abnormal US or breast enlargement Musc Musculoskeletal: Yes back problems, arthritis and rheumatoid arthritis; No gout or joint pain Cardio Cardiovascular: Yes high blood pressure; No murmur, pacemaker, heart disease, atrial fibrillation, heart attack, heart stent, palpitations, shortness of breat with exertion or chest pain Psych Psychiatric: No depression, anxiety or hearing voices Resp Respiratory: No shortness of breath, No sleep apnea, No cough, No COPD, No asthma, No emphysema and No wheezing Gastro Gastrointestinal: No abdominal pain, No nausea or vomiting, No diarrhea, No constipation, No blood in stool, No acid reflux, No hemorrhoids, No ulcers, No gallbladder problem and No black,tarry stools Hilton Hematologic: Yes blood thinners, No blood disorders, No bleeding, No anemia and No blood clots Neuro Neurologic: No system reviewed and no additional complaints, except as documented, No as per HPI, No abnormal gait, No abnormal hearing, No abnormal movements, No abnormal speech, No behavioral changes, No burning sensations, No confusion, No convulsions, No disequilibrium, No dizziness, No localized weakness, No frequent falls, No headache(s), No lack of coordination, No loss of vision, No memory loss, No numbness, No other visual disturbances, No radicular pain, No restless legs, No sensory deficit, No syncope, No tingling, No tremor(s), No weakness and No other Exam Const General: cooperative, comfortable and no acute distress Nutritional Appearance: obese [facility] Head: normal to inspection Eyes General: appearance normal, both eyes and all related structures Neck Neck: normal visual inspection Chest Chest palpation & inspection: normal inspection of the chest Resp Effort & Inspection: normal respiratory effort Auscultation: clear to auscultation bilaterally Cardio Rate: regular rate Rhythm: regular rhythm Other: Bilateral radial pulses 3+.? Bilateral brachial pulses 3+.? Bilateral carotids 2+.? No carotid bruits GI Inspection: normal to inspection Auscultation: normal bowel sounds Musc Cervical Spine: normal cervical lordosis Skin General: no rashes or lesions noted Neuro General: patient alert and patient awake Other: Bilateral hand tremor noted Extrem General: no calf tenderness Psych Appearance: grossly normal Assessment and Plan Assessment and Plan (1) Stenosis of right carotid artery: ?Status:?Acute (2) Personal history of colonic polyps: ?Status:?Acute Plan I have instructed the patient that I reviewed his CTA with Dr. Quinn and after extensive discussion there is felt to be likely somewhere between 50 and 69% stenosis of the right internal carotid possibly closer to the 69% range based upon CTA.? I believe however that the more concerning feature is found on his carotid duplex exam with the clearly visible and mobile plaque which has been visualized now on multiple occasions.? In great detail I have discussed with him a right carotid enterectomy with bovine patch angioplasty and arterial line monitoring.? We have discussed the technique, benefit, risk, alternatives.? Absolutely no guarantees of success have been offered. I will have the patient hold his clopidogrel 2 days preprocedure.? He is aware that we anticipate utilizing an arterial line for monitoring. The patient is additionally aware that at this moment in time operating room scheduling is extraordinarily limited to certain circumstances outside of my control.? We will schedule him at the earliest convenient date. He has had an opportunity to ask and have questions answered.? We will schedule and proceed at his discretion.? The patient has expressed an interest in proceeding with intervention.? He states that he is never been comfortable with a noninterventional approach.? He states that he desires to convert his care regarding this particular issue to me at this time. Copy: Dr Derrell Salmeron and Dr. Hudson Gilbert M.D., F.A.C.S. I have examined the patient and the H&P has been reviewed. There are no clinical changes since date of exam. Randall Gilbert M.D., F.A.C.S.
[2022-11-18] MEDS: Lactated Ringers 1,000 ML 15 ML IV (08:00)
--- NOTE | 2022-11-18 08:15 | COLBX_PTH ---
PATIENT: NIKO BROWN LOC: EN U#:[id number] AGE/SX: 62/M ROOM: RE11/18/[address]: Dr. Randall Gilbert MD : 1960 BED: DIS: 11/18/2022 SPEC #: [id number] RECD: 11/18/22 10:45 STATUS: KARINE MUKHERJEE #: [id number] SHONDA: 11/18/22 08:[address]: Randall Gilbert DEPT: SURGICAL PATHOLOGY RECD BY: Jonny Joe ENTERED: 11/18/22 11:33 SP TYPE: COLON BX HAYDEE DR: Dr. Derrell Salmeron MD Tissues: A - Transverse colon B - Transverse colon Procedures: Surgery Specimen Level IV HEADER OPERATION: Colonoscopy ([facility]), polypectomy PRE-OP DIAGNOSIS: Stenosis of right carotid artery, history of colonic polyps TISSUE SUBMITTED: A ? Proximal transverse polyp #1, B - Proximal transverse polyp #2 MICROSCOPIC DIAGNOSIS A. Proximal transverse colon polyp #1, polypectomy: Tubular adenoma. B. Proximal transverse colon polyp #2, polypectomy: Fragments of tubular adenoma. ARPAN:balwinder 11/19/2022 MICROSCOPIC DESCRIPTION Slides are reviewed. GROSS DESCRIPTION A - Received in fixative is one container labeled with the patient's name and designated proximal transverse polyp #1. The specimen consists of one irregular fragment of light [place] soft tissue that measures 0.2 x 0.2 x 0.1 cm. The specimen is totally submitted in one cassette. B - Received in fixative is one container labeled with the patient's name and designated proximal transverse polyp #2. The specimen consists of multiple irregular fragments of light [place] soft tissue mixed with mucoid tissue that in aggregate measure 1 x 1 x 0.1 cm. The specimen is totally submitted in one cassette. / ARPAN:balwinder 11/18/2022 TC:1 CPT: 91364 x2
[2022-11-18 08:20] LABS: Bedside Glucose 179 mg/dL (74-106)
[2022-11-18 08:45] VITALS: BP 108/54; BP 143/75; PULSE 64; RESP 16; TEMP 36.2; O2SAT 95
--- NOTE | 2022-11-18 08:46 | OP.COLON_ITS ---
Patient Name: Raghu Huitron Procedure Date: 11/18/2022 7:51 AM Date of : 1960 Age: 62 Procedure: Colonoscopy Indications: High risk colon cancer surveillance: Personal history of colonic polyps Providers: Randall Gilbert MD Medicines: See the Anesthesia note for documentation of the administered medications Patient Profile: Last Colonoscopy: 1 year ago. Complications: No immediate complications. Procedure: Pre-Anesthesia Assessment: - Prior to the procedure, a History and Physical was performed, and patient medications and allergies were reviewed. The patient's tolerance of previous anesthesia was also reviewed. The risks and benefits of the procedure and the sedation options and risks were discussed with the patient. All questions were answered, and informed consent was obtained. Prior Anticoagulants: The patient has taken no previous anticoagulant or antiplatelet agents. ASA Grade Assessment: II - A patient with mild systemic disease. After reviewing the risks and benefits, the patient was deemed in satisfactory condition to undergo the procedure. After I obtained informed consent, the scope was passed under direct vision. Throughout the procedure, the patient's blood pressure, pulse, and oxygen saturations were monitored continuously. The colonoscope was introduced through the anus and advanced to the cecum, identified by appendiceal orifice and ileocecal valve. The colonoscopy was somewhat difficult. The patient tolerated the procedure well. The quality of the bowel preparation was good. The ileocecal valve and the appendiceal orifice were photographed. Scope In: 8:13:29 AM Scope Withdrawal Time 0 hours 24 minutes 3 seconds Scope Out: 8:41:01 AM Total Procedure Duration Time 0 hours 27 minutes 32 seconds Findings: Hemorrhoids were found on perianal exam. A 4 mm polyp was found in the proximal transverse colon. The polyp was sessile. The polyp was removed with a hot snare. Resection and retrieval were complete. A 9 mm polyp was found in the proximal transverse colon. The polyp was sessile. The polyp was removed with a hot snare. Resection and retrieval were complete. Impression: - Hemorrhoids found on perianal exam. - One 4 mm polyp in the proximal transverse colon, removed with a hot snare. Resected and retrieved. - One 9 mm polyp in the proximal transverse colon, removed with a hot snare. Resected and retrieved. Recommendation: - Await pathology results. - Repeat colonoscopy in 5 years for surveillance based on pathology results. - Telephone my office for pathology results in 1 week. - Continue present medications. Procedure Code(s): --- Professional --- 27823, Colonoscopy, flexible; with removal of tumor(s), polyp(s), or other lesion(s) by snare technique Diagnosis Code(s): --- Professional --- Z86.010, Personal history of colonic polyps K64.9, Unspecified hemorrhoids D12.3, Benign neoplasm of transverse colon (hepatic flexure or splenic flexure) CPT copyright 2017 [employer]. All rights reserved. The codes documented in this report are preliminary and upon inspector and hand packager review may be revised to meet current compliance requirements. Randall Gilbert MD 11/18/2022 8:46:18 AM This report has been signed electronically. Number of Addenda: 0 Note Initiated On: 11/18/2022 7:51 AM
--- NOTE | 2022-11-18 08:46 | OP.CCLET_ITS ---
11/18/2022 Derrell Salmeron [address] [place] [address] Re : Colonoscopy procedure for Raghu [facility] Dear Dr. Salmeron This procedure was performed on Friday, November 18, 2022. My impressions and recommendations are as follows: Impressions : - Hemorrhoids found on perianal exam. - One 4 mm polyp in the proximal transverse colon, removed with a hot snare. Resected and retrieved. - One 9 mm polyp in the proximal transverse colon, removed with a hot snare. Resected and retrieved. Recommendations : - Await pathology results. - Repeat colonoscopy in 5 years for surveillance based on pathology results. - Telephone my office for pathology results in 1 week. - Continue present medications. My findings are described in the full procedure note, which is enclosed. If I can be of further assistance, please feel free to contact me at Doctor phone number(s): Work: . Sincerely, Randall Gilbert MD 11/18/2022 8:46:18 AM This report has been signed electronically.
[2022-11-18 08:50] VITALS: BP 119/61; BP 143/75; PULSE 67; RESP 16; O2SAT 93
[2022-11-18 08:55] VITALS: BP 120/62; BP 143/75; PULSE 61; RESP 16; O2SAT 93
[2022-11-18 09:00] VITALS: BP 103/63; BP 143/75; PULSE 60; RESP 16; TEMP 36.3; O2SAT 92
[2022-11-18 09:13] VITALS: BP 143/75
== END 2022-11-18 09:21 | disposition home or self-care (01) ==
LOC: EN 07:08 → AC 07:11
PROVIDERS: PCP Family Medicine; Referring Provider Surgery; Visit Provider Surgery
PROC: 0DJD8ZZ Inspection of Lower Intestinal Tract, Via Natural or Artificial Opening Endoscopic (ICD-10-PCS; CPT 45378; principal; 2022-11-18 08:10)
DX: D12.3 Benign neoplasm of transverse colon (principal); F31.9 Bipolar disorder, unspecified; I65.21 Occlusion and stenosis of right carotid artery; I10 Essential (primary) hypertension; K64.9 Unspecified hemorrhoids; I25.2 Old myocardial infarction; E66.9 Obesity, unspecified; E78.00 Pure hypercholesterolemia, unspecified; Z79.899 Other long term (current) drug therapy; Z79.01 Long term (current) use of anticoagulants; Z86.010 Personal history of colon polyps
CPT/HCPCS: 45385; 82962; 88305; J7120; J2405

== ENCOUNTER 2022-12-09 05:20 | Inpatient (IN) | payer OTHER, SELFPAY ==
--- NOTE | 2022-11-27 09:36 | EKG12_ITS ---
Test Reason : PREOP Blood Pressure : / mmHG Vent. Rate : 052 BPM Atrial Rate : 052 BPM P-R Int : 164 ms QRS Dur : 096 ms QT Int : 442 ms P-R-T Axes : 024 -15 054 degrees QTc Int : 411 ms Sinus bradycardia Otherwise normal ECG Confirmed by DAVID GAGE, REGGIE ([id number]), book or script editor YOVANA ROSENBAUM ([id number]) on 11/28/2022 6:38:25 AM Referred By: BENNY Confirmed By:DON HERNANDEZ MD
[2022-11-27 13:06] LABS: Hematocrit 41.1 % (40-54); Hemoglobin 13.9 g/dL (13.0-16.5); Mean Corp Hgb Conc 33.8 g/dL (32-36); Mean Corpuscular Volume 88.8 fL (80-94); Mean Platelet Vol. 9.8 fl (6.2-12.0); Platelet Count 312 K/mm3 (150-450); Red Blood Count 4.63 M/mm3 (4.6-6.2); White Blood Count 15.3 K/mm3 (4.4-11.0)
[2022-11-27 13:42] LABS: Anion Gap 7 (5-15); BUN 18 mg/dL (7-18); BUN/Creat Ratio 16.4 RATIO (10-20); Calcium,Total 9.1 mg/dL (8.5-10.1); Chloride 102 mmol/L (98-107); EST Glomerular Filtration Rate 72 mL/min (>60); Est Glom Filt Rate - Afr Amer 87 mL/min (>60); Glucose 148 mg/dL (74-106); Potassium 3.9 mmol/L (3.5-5.1); Sodium Level 137 mmol/L (136-145)
[2022-12-09] VITALS (25 sets, daily range): BP systolic 96–133; BP diastolic 40–105; PULSE 53–98; RESP 16–18; TEMP 36.4–37; O2SAT 92–98; BMI 33.4
[2022-12-09] MEDS: Lactated Ringers 1,000 ML 15 ML IV ×4 (05:56→14:05)
[2022-12-09 06:20] LABS: Bedside Glucose 155 mg/dL (74-106)
--- NOTE | 2022-12-09 06:29 | PCM.HP.BLA ---
History and Physical Date of Admission: 12/09/22 Visit Reasons:?Cartoid Stenosis Chief Complaint: carotid stenosis Director Of Hospitality Required: No Is patient in pain?: No Allergies No Known Allergies Allergy (Verified 11/05/22 12:21) Medications amlodipine 10 mg tablet 10 mg PO DAILY blood pressure 08/07/20 [History Confirmed 11/05/22] trazodone 100 mg tablet 1 - 2 mg PO QHS sleep 08/07/20 [History Confirmed 11/05/22] atorvastatin 40 mg tablet 40 mg PO QHS #30 tabs 08/09/20 [Rx Confirmed 11/05/22] hydrochlorothiazide 25 mg tablet 25 mg PO DAILY 06/18/21 [History Confirmed 11/05/22] clopidogrel 75 mg tablet (Plavix) 75 mg PO DAILY 10/16/21 [History Confirmed 11/05/22] prednisone 10 mg tablet See Rx Instructions PO QDAY #30 tabs 08/03/22 [Rx Confirmed 11/05/22] accu-check fe plus intradermal 09/10/22 [History Confirmed 11/05/22] acetaminophen 500 mg capsule 500 mg PO Q6H PRN 09/10/22 [History Confirmed 11/05/22] cyclobenzaprine 5 mg tablet 5 mg PO TID PRN 09/10/22 [History Confirmed 11/05/22] dutasteride 0.5 mg capsule (Avodart) 0.5 mg PO DAILY 09/10/22 [History Confirmed 11/05/22] metoprolol succinate 50 mg tablet,extended release 24 hr 100 mg PO DAILY heart 09/10/22 [History Confirmed 11/05/22] lithium carbonate 300 mg capsule 300 mg PO .COMPLEX 09/22/22 [History Confirmed 11/05/22] amitriptyline 25 mg tablet 25 mg PO QHS #30 tabs 10/29/22 [Rx Confirmed 11/05/22] lactulose 10 gram/15 mL oral solution 15 ml PO DAILY #473 mL 10/29/22 [Rx Confirmed 11/05/22] PFSH Medical History? Acute bronchitis Alcohol use Arthritis Bipolar 1 disorder Bipolar disorder Cardiology follow-up encounter Carotid stenosis, bilateral Chest pain Essential hypertension High cholesterol History of echocardiogram History of heart attack History of stress test Hypertension Non-smoker Osteoarthritis of left knee Pharyngitis Prostate disease Seizures Shortness of breath Shoulder pain Wears glasses Surgical History?(Updated 11/05/22 @ 12:20 by Gaye Cifuentes) History of arthroscopy of knee History of bursectomy History of carpal tunnel release History of colonoscopy (~10/2022) Family History? Father Myocardial infarction Hypertension AlcoholismMother Cancer DiabetesBrother Heart disease Hypertension Alcoholism Cancer ?? ? prostate ?? ?Grandfather Myocardial infarction CVA (cerebral vascular accident) Carotid arterial disease Social History? Smoking Status:? Never smoker alcohol intake:? current Alcohol type: beer substance use type:? does not use HPI HPI HPI: 62-year-old gentleman.? He has been seeing Dr. Souleymane Loving regarding carotid occlusive disease.? He is requesting a second opinion.? Records that I have available go back to August 08, 2020 carotid duplex exam.? At that time there was felt to be irregular plaque within the right carotid bulb and a 0.26 x 0.21 cm mobile thrombus.? There was felt to be 50 to 69% stenosis based upon velocity.? A head neck CTA was performed and that suggested calcific plaque at the origin of right internal carotid causing 50 to 69% stenosis.? A small filling defect suggesting small thrombus within the right carotid bulb? identified..? To my understanding nonoperative management was recommended.? The patient then had an additional carotid duplex exam October 23, 2020.? Velocities were not elevated within the right internal carotid artery.? Again a small mobile plaque measuring 0.24 x 0.22 cm was identified but less than 50% stenosis bilaterally.? The patient had his next carotid duplex exam September 04, 2021.? Less than 50% stenosis bilateral internal carotid arteries.? Persistent small mobile plaques 0.25 x 0.25 cm in the right carotid bulb noted.? On September 04, 2020 2 repeat carotid duplex imaging was obtained demonstrating less than 50% stenosis bilateral internal carotid arteries.? There is mild irregular plaque within the right proximal internal carotid artery with a 0.29 x 0.32 cm diameter small mobile plaque.? This appears to be similar to the previous studies.? On October 08, [address] Souleymane Loving the patient had a CTA of the carotids.? Now there was felt to be greater than 70% stenosis of the right internal carotid artery with mild plaque formation of the left internal carotid artery.? I have personally reviewed these images with .? It is my opinion that the degree of stenosis of the right internal carotid would be closer to 50 to 69% rather than greater than 70%.? There is less than 50% stenosis on the left The patient is recently has been seen by Dr. Hudson Almanzar.? Lactulose has been added to the patient's regimen because he has an elevated ammonia level.? Patient apparently complaining of a tremor.? He has multiple medical problems including hyperlipidemia and hypertension and diabetes mellitus and history of myocardial infarction and benign prostatic hypertrophy and bipolar disorder.? He has a history of excessive alcohol use.? He has neuropathic pain.? 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 Carlos Storey. The patient also apparently has an elevated TSH and is to be following up with primary care.? This is felt to possibly be secondary to his lithium treatment. I have seen him most recently on October 24, 2022.? This was in follow-up of a personal history of multiple colon polyps.? November 12, 2021 he had a colonoscopy work 8 colonic polyps tubular adenomas were removed.? He is scheduled for a future colonoscopy. Patient denies any TIAs or strokes.? He is on clopidogrel because of previous myocardial infarction.? By report he does not have a coronary stent in place. It is of note that Dr. Hudson Almanzar has expressed concerned about this mobile plaque in the patient's right carotid as well ROS General General: No weight change, appetite, fatigue, colon cancer, breast cancer or weakness HEENT HEENT: No difficulty swallowing, eye injury, eye surgery, swollen glands or hoarseness Endo Endocrine: Yes diabetes mellitus; No thyroid disease, thyroid cancer, Hair loss, heat intolerance or cold intolerance Skin Skin: No rash or changing moles Breast Breast: No left breast lump, right breast lump, nipple discharge, breast pain, abnormal mammogram, abnormal US or breast enlargement Musc Musculoskeletal: Yes back problems, arthritis and rheumatoid arthritis; No gout or joint pain Cardio Cardiovascular: Yes high blood pressure; No murmur, pacemaker, heart disease, atrial fibrillation, heart attack, heart stent, palpitations, shortness of breat with exertion or chest pain Psych Psychiatric: No depression, anxiety or hearing voices Resp Respiratory: No shortness of breath, No sleep apnea, No cough, No COPD, No asthma, No emphysema and No wheezing Gastro Gastrointestinal: No abdominal pain, No nausea or vomiting, No diarrhea, No constipation, No blood in stool, No acid reflux, No hemorrhoids, No ulcers, No gallbladder problem and No black,tarry stools Hilton Hematologic: Yes blood thinners, No blood disorders, No bleeding, No anemia and No blood clots Neuro Neurologic: No system reviewed and no additional complaints, except as documented, No as per HPI, No abnormal gait, No abnormal hearing, No abnormal movements, No abnormal speech, No behavioral changes, No burning sensations, No confusion, No convulsions, No disequilibrium, No dizziness, No localized weakness, No frequent falls, No headache(s), No lack of coordination, No loss of vision, No memory loss, No numbness, No other visual disturbances, No radicular pain, No restless legs, No sensory deficit, No syncope, No tingling, No tremor(s), No weakness and No other Exam Const General: cooperative, comfortable and no acute distress Nutritional Appearance: obese [facility] Head: normal to inspection Eyes General: appearance normal, both eyes and all related structures Neck Neck: normal visual inspection Chest Chest palpation & inspection: normal inspection of the chest Resp Effort & Inspection: normal respiratory effort Auscultation: clear to auscultation bilaterally Cardio Rate: regular rate Rhythm: regular rhythm Other: Bilateral radial pulses 3+.? Bilateral brachial pulses 3+.? Bilateral carotids 2+.? No carotid bruits GI Inspection: normal to inspection Auscultation: normal bowel sounds Musc Cervical Spine: normal cervical lordosis Skin General: no rashes or lesions noted Neuro General: patient alert and patient awake Other: Bilateral hand tremor noted Extrem General: no calf tenderness Psych Appearance: grossly normal Assessment and Plan Assessment and Plan (1) Stenosis of right carotid artery: ?Status:?Acute (2) Personal history of colonic polyps: ?Status:?Acute Plan I have instructed the patient that I reviewed his CTA with Dr. Quinn and after extensive discussion there is felt to be likely somewhere between 50 and 69% stenosis of the right internal carotid possibly closer to the 69% range based upon CTA.? I believe however that the more concerning feature is found on his carotid duplex exam with the clearly visible and mobile plaque which has been visualized now on multiple occasions.? In great detail I have discussed with him a right carotid enterectomy with bovine patch angioplasty and arterial line monitoring.? We have discussed the technique, benefit, risk, alternatives.? Absolutely no guarantees of success have been offered. I will have the patient hold his clopidogrel 2 days preprocedure.? He is aware that we anticipate utilizing an arterial line for monitoring. The patient is additionally aware that at this moment in time operating room scheduling is extraordinarily limited to certain circumstances outside of my control.? We will schedule him at the earliest convenient date. He has had an opportunity to ask and have questions answered.? We will schedule and proceed at his discretion.? The patient has expressed an interest in proceeding with intervention.? He states that he is never been comfortable with a noninterventional approach.? He states that he desires to convert his care regarding this particular issue to me at this time. Copy: Dr Derrell Salmeron and Dr. Hudson Gilbert M.D., F.A.C.S I have examined the patient and the H&P has been reviewed. There are no clinical changes since date of exam. Randall Gilbert M.D., F.A.C.S.
--- NOTE | 2022-12-09 06:34 | OP.PCM_ITS ---
Report of Operation Date of Procedure: 12/09/22 Pre-Operative Diagnosis: Stenosis right extracranial internal carotid artery wi th free intimal flap Post-Operative Diagnosis: Same Surgery/Procedure Performed:: Right radial arterial line placement Right carotid endarterectomy with bovine patch angioplasty Ceron Vascu-Guard patch 0.8 x 8 cm, reference [id number], lot [id number], expiry date 01/01/2027 Description of Surgical Findings:: At the bedside Timeout informed consent was obtained. David test performed demonstrating adequate ulnar flow of the right wrist. The right wrist was prepped with chlorhexidine. Under ultrasound guidance 1% lidocaine was used as a local anesthetic 1 cc of local was instilled under ultrasound guidance 20- gauge Angiocath was inserted in the artery under ultrasound guidance with Seldinger wire the catheter was advanced I then switched out for the 20-gauge catheter provided with the kit secured that to the pressure tubing placed some gauze to help protect the skin and then an OpSite dressing followed by Lauren wrap the patient tolerated the procedure well no apparent complication good waveform was obtained. The patient was subsequently taken to the operating room. He was placed supine on the table underwent general endotracheal intubation esthesia. Ancef 2 g were given intravenously. The right neck was sterilely prepped and draped. An oblique incision was made along the anterior border the sternocleidomastoid. Sharp dissection was carried down through the subcutaneous tissues. Sharp and blunt dissection was used to identify the carotid bulb and proximal portion of the right internal and external carotid arteries. Tedious sharp dissection was required. The carotid was challenging to expose. The hypoglossal nerve was very low and the bifurcation with the and as it was clearly on view. It literally crossed at the carotid bulb had to be carefully teased and dissected free and elevated into the neck. This allowed for circumferential control of the internal carotid with a Dacron tape and Zia tourniquet the external carotid branch to early and a vessel loop was placed there. Dacron tape in a Martinez tie fashion of the common carotid circumferential and complete dissection was achieved for excellent exposure. The patient received initially 11,000 units of heparin and then based upon ACT measurements received another 1000 units of heparin during the procedure after adequate circulation time Hall clamp was placed on the internal carotid peripheral vascular clamp on the common carotid and on the external carotid and 11 blade was used to make an arteriotomy which was extended with Martinez scissors #10 US CI style shunt was placed cephalad then proximally inspection revealed that there was some focal plaque at the carotid bulb that appeared to be exophytic and somewhat lucent was not very large. Got into the external elastic lamina and raised the plaque sharply transected approximately then tried to feathered smoothly at the internal carotid and did an inversion atherectomy of the external carotid further debris was carefully removed the internal carotid carefully inspected there was still some very thin cholesterol plaque that was still heading cephalad I used several 7 oh Tacking sutures to assure that that plaque was smooth then I used a bovine patch that I shaped to form and a patch angioplasty was performed with his 6-0 Prolene prior to completion the shunt was removed all vessels were allowed to backflow the patch angioplasty was completed initial flow instituted from external carotid common carotid and internal carotid 1 repair suture of 7-0 Prolene was required there was good patch application good positioning of the carotid. The patient received 20 mg of protamine. Subcutaneous tissue approximated up to 3-0 Vicryl skin edges proximal and running subcuticular 5-0 Vicryl periincisional areas anesthetized with 20 cc of 0.25% Marcaine Steri-Strips Telfa tape dressings applied sponge and instrument and needle counts were rep orted to surgically correct Specimen is plaque. Drains none. Blood loss 300 cc. The patient was taken to the recovery room in satisfactory condition after waking on the table and appeared to be neurologically intact. Randall Gilbert M.D., F.A.C.S. Surgeon: Randall Gilbert Type of Anesthesia: General and Local Anesthesiologist: Abdulkadir Rush
--- NOTE | 2022-12-09 06:36 | DCINST_ITS ---
Documented by User: Dr. Randall Gilbert MD 12/09/22 06:38 Discharge Instructions Diet Discharge Diet: Light diet - advance as tolerated Activity Discharge Activity: May Not Drive (No driving for week) and May Shower (You may shower on December 12. Do not rub the incision pat it dry.) Lifting Restrictions: 10 pound weight lifting restriction Additional Activity Instructions:: You may to protect your incision is needed with gauze and tape. If there is no irritation then you may leave it open and subsequently remove the Steri-Strips in 1 week Follow Up Care Please Follow Up With: Randall Gilbert MD When: Office follow-up in approximately 10 days. Please call [phone] to schedule an appointment Test Results: Test results from this visit will be discussed in further detail at your follow- up appointment, if applicable. Discharge Plan Admission Admit Date/Time: 12/09/22 05:20 Primary Reason for Your Visit: Mobile plaque right internal carotid artery Attending Provider: Randall Gilbert Primary Care Provider: Derrell Salmeron Instructions Additional Instructions / Restrictions: Plan resumption of your clopidogrel (Plavix) therapy on Thursday, December 13, 2022 Apply ice 20 minutes on and 20 minutes off over the next 24 hours Remove dressing on the right neck tomorrow Contact our office if any bleeding Discharge Orders/Prescriptions Prescriptions: New hydrocodone-acetaminophen 5-325 mg tablet 1 tab PO Q6H PRN (Reason: pain) 2 Days Qty: 8 0RF Continued trazodone 100 mg tablet 1 - 2 mg PO QHS amlodipine 10 mg tablet 10 mg PO DAILY metoprolol succinate 50 mg tablet extended release 24 hr 100 mg PO DAILY hydrochlorothiazide 25 mg tablet 25 mg PO DAILY acetaminophen 500 mg capsule 500 mg PO Q6H PRN (Reason: Pain) dutasteride [Avodart] 0.5 mg capsule 0.5 mg PO DAILY accu-check fe plus See Rx Instructions .ROUTE .COMPLEX Rx Instructions: ACCU-CHECK clopidogrel [Plavix] 75 mg tablet 75 mg PO DAILY Hold Instructions: May resume day after completion of blood thinner Label Comments: STOP 2 DAYS PRIOR propranolol 10 mg tablet 20 mg PO 0800 Label Comments: TAKE 1 TABLET BY MOUTH THREE TIMES DAILY propranolol 10 mg tablet 10 mg PO QHS Label Comments: TAKE 1 TABLET BY MOUTH THREE TIMES DAILY lithium carbonate 300 mg capsule 300 mg PO 0800 Label Comments: TAKE 2 CAPSULES BY MOUTH TWICE DAILY lithium carbonate 300 mg capsule 600 mg PO QHS Label Comments: TAKE 2 CAPSULES BY MOUTH TWICE DAILY losartan [Cozaar] 100 mg tablet 100 mg PO DAILY Label Comments: TAKE 1 TABLET BY MOUTH ONCE DAILY metformin 500 mg tablet extended release 24 hr 500 mg PO BID duloxetine 60 mg capsule,delayed release(DR/EC) 60 mg PO QHS Label Comments: TAKE 1 CAPSULE BY MOUTH ONCE DAILY AT BEDTIME. BEGIN AFTER COMPLETING ONE WEEK COURSE OF DULOXETINE 30 MG NIGHTLY. amitriptyline 25 mg tablet 25 mg PO QHS lactulose 10 gram/15 mL solution 15 ml PO DAILY Referrals / Follow Up: Derrell Salmeron MD [Primary Care Provider] - Randall Gilbert MD [Med Staff - Active Staff] - 12/22/22 (Please contact our office for an appointment) Disposition Disposition (needs filled in before D/C Order can be placed): Home, Self Care Documented by User: Isabel ETIENNE PA-C 12/10/22 12:54 Discharge Instructions Activity Discharge Activity: May Shower (You may shower on Thursday, December 14. Do not rub the incision, pat it dry.) Dressing / Incision Call your doctor if your incision/area has: Continuous Slow Oozing, Sudden Increased Bleeding, Increased Pain/ Swelling, Increased Redness, Foul Smelling Discharge and Swelling at the incision site Call your doctor if you observe: Fever of 101 or Higher Suture Line Care: Avoid Pulling/Pushing and Avoid Pinching/Bending Remove Dressing in: 1 day Discharge Plan Admission Admit Date/Time: 12/09/22 05:20 Primary Reason for Your Visit: Mobile plaque right internal carotid artery Attending Provider: Randall Gilbert Primary Care Provider: Derrell Salmeron Instructions Additional Instructions / Restrictions: Plan resumption of your clopidogrel (Plavix) therapy on Thursday, December 13, 2022 Apply ice 20 minutes on and 20 minutes off over the next 24 hours Remove dressing on the right neck tomorrow Contact our office if any bleeding Discharge Orders/Prescriptions Prescriptions: New hydrocodone-acetaminophen 5-325 mg tablet 1 tab PO Q6H PRN (Reason: pain) 2 Days Qty: 8 0RF Continued trazodone 100 mg tablet 1 - 2 mg PO QHS amlodipine 10 mg tablet 10 mg PO DAILY metoprolol succinate 50 mg tablet extended release 24 hr 100 mg PO DAILY hydrochlorothiazide 25 mg tablet 25 mg PO DAILY acetaminophen 500 mg capsule 500 mg PO Q6H PRN (Reason: Pain) dutasteride [Avodart] 0.5 mg capsule 0.5 mg PO DAILY accu-check fe plus See Rx Instructions .ROUTE .COMPLEX Rx Instructions: ACCU-CHECK clopidogrel [Plavix] 75 mg tablet 75 mg PO DAILY Hold Instructions: May resume day after completion of blood thinner Label Comments: STOP 2 DAYS PRIOR propranolol 10 mg tablet 20 mg PO 0800 Label Comments: TAKE 1 TABLET BY MOUTH THREE TIMES DAILY propranolol 10 mg tablet 10 mg PO QHS Label Comments: TAKE 1 TABLET BY MOUTH THREE TIMES DAILY lithium carbonate 300 mg capsule 300 mg PO 0800 Label Comments: TAKE 2 CAPSULES BY MOUTH TWICE DAILY lithium carbonate 300 mg capsule 600 mg PO QHS Label Comments: TAKE 2 CAPSULES BY MOUTH TWICE DAILY losartan [Cozaar] 100 mg tablet 100 mg PO DAILY Label Comments: TAKE 1 TABLET BY MOUTH ONCE DAILY metformin 500 mg tablet extended release 24 hr 500 mg PO BID duloxetine 60 mg capsule,delayed release(DR/EC) 60 mg PO QHS Label Comments: TAKE 1 CAPSULE BY MOUTH ONCE DAILY AT BEDTIME. BEGIN AFTER COMPLETING ONE WEEK COURSE OF DULOXETINE 30 MG NIGHTLY. amitriptyline 25 mg tablet 25 mg PO QHS lactulose 10 gram/15 mL solution 15 ml PO DAILY Referrals / Follow Up: Derrell Salmeron MD [Primary Care Provider] - Randall Gilbert MD [Med Staff - Active Staff] - 12/22/22 (Please contact our office for an appointment) Disposition Disposition (needs filled in before D/C Order can be placed): Home, Self Care
--- NOTE | 2022-12-09 07:30 | PLAQ_PTH ---
PATIENT: NIKO BROWN LOC: [facility] U#:[id number] AGE/SX: 62/M [place] [facility] [place]12[place]09/[address]: Dr. Randall Gilbert MD : 1960 BED: 1 DIS: 12/10/2022 SPEC #: [id number] RECD: 12/09/22 09:59 STATUS: KARINE MUKHERJEE #: [id number] SHONDA: 12/09/22 07:[address]: Randall Gilbert DEPT: SURGICAL PATHOLOGY RECD BY: Sherri Griffin ENTERED: 12/09/22 10:33 SP TYPE: PLAQUE OTHR DR: Dr. Derrell Salmeron MD Tissues: PLAQUE Procedures: Decalcification bone/plaque Surgery Specimen Level III HEADER OPERATION: Carotid endarterectomy with Bovine patch angioplasty PRE-OP DIAGNOSIS: Stenosis of right carotid artery TISSUE SUBMITTED: Carotid artery plaque MICROSCOPIC DIAGNOSIS Carotid artery plaque, endarterectomy: Calcified atheromatous plaque consistent with stenosis. AM:balwinder 12/12/2022 GROSS DESCRIPTION Received in fixative is one container labeled with the patient's name and designated carotid artery plaque. The specimen consists of a previously opened tubular piece of medina-light yellow indurated tissue measuring 2.5 cm in length and 1 cm in diameter. The specimen cuts focally with gritty sensation. The entire specimen is submitted in one cassette after decalcification. / SJ:balwinder 12/09/2022 TC:5 CPT: 97478, 27511
[2022-12-09] MEDS: Heparin Injection (Vial) 5,000 UNIT/ML VIAL 5000 UNIT (07:51)
[2022-12-09] MEDS: Nitro/D5w 25MG/250ML Bottle 25 MG (09:59)
[2022-12-09] MEDS: Sugammadex Sodium 200 MG/2 ML VIAL IV (10:11)
--- NOTE | 2022-12-09 11:00 | SUR.PHASEI ---
ARRIVED TO PACU WITH NTG INFUSING RUNNING AT 50 MCG/MIN, SBP BELOW 120 THRESHOLD, CUT RATE IN HALF TO 25 MCG/MIN, THEN D/C AT 1043. RIGHT TONGUE DEVIATION NOTED, DR ZAPATA WAS HERE, EVALUATED, AWARE. PATIENT OTHERWISE NEURO NEGATIVE.
[2022-12-09 11:50] LABS: Bedside Glucose 174 mg/dL (74-106)
[2022-12-09] MEDS: Cefazolin 1 GM/50 ML BAG IV ×2 (15:12→23:23)
[2022-12-09] MEDS: Acetaminophen 500 MG Tablet PO (17:35)
[2022-12-09] MEDS: metFORMIN (XR) 500 MG Tablet PO (17:36)
[2022-12-09] MEDS: Lactated Ringers 1,000 ML 70 ML IV (18:40)
--- NOTE | 2022-12-09 19:12 | PCM.PN.SRG ---
Subjective Subjective 6:15 PM. I was called to see the patient on arrival because of saturated dressing right neck. Patient was neurologically intact. Tongue slight deviation to the right no change for immediately postop and consistent with the hypoglossal nerve mobilization that had to be performed. Noted that he was chewing hard on food when then felt wetness on the right neck. He notes soreness. Particularly with pressure being helped. Objective Data Objective Data Vital Signs: Vital Signs Temp Pulse Resp BP Pulse Ox O2 Del Method O2 Flow Rate 98.5 F 58 L 18 103/52 L 93 Nasal Cannula 3 12/09/22 16:51 12/09/22 16:51 12/09/22 16:51 12/09/22 16:51 12/09/22 16:51 12/09/22 16:51 12/09/22 16:51 Oxygen Flow Rate (L/min) 3 Oxygen Delivery Method Nasal Cannula Weight: 253 lb 8.505 oz Body Mass Index (BMI) 33.4 Intake & Output: Intake and Output for Last 24 Hours 12/07/22 12/08/22 12/09/22 23:59 23:59 23:59 Intake Total 3165 / 3165 Balance 3165 / 3165 Lab / Micro Data Result Diagrams: 11/27/22 10:02 11/27/22 10:02 Labs: Laboratory Results - last 24 hr 12/09/22 05:45: POC Glucose 155 H 12/09/22 11:27: POC Glucose 174 H Physical Exam Const Constitutional Narrative: Right neck dressing of Telfa is saturated and there is evidence of blood that is stripped down. Moderate neck swelling. Patient is breathing easily and talking abundantly. No acute distress Assessment & Plan Assessment/Plan (1) Postoperative hematoma: PLAN: Patient appears to have a postoperative hematoma. I suspect that because of the depth of his neck and depth of the resection that he had somewhat collected blood down there and with vigorous shooting released it. He does not appear to be in any distress. He is breathing and talking very easily without encumbrance. I personally helped assist with holding pressure for at least 25 to 30 minutes with instructions to hold for another 20. He will continue to be observed. At this point there is no evidence of expanding hematoma or any further bleeding since initial dressing was removed. I anticipate keeping him n.p.o. and watching him carefully. Randall Gilbert M.D., F.A.C.S.
[2022-12-09] MEDS: Morphine 4 MG/ML Syringe IV ×2 (20:01→23:27)
[2022-12-09] MEDS: 0.9% Saline Lock 10 ML Syringe IV ×2 (20:01→23:28)
[2022-12-09] MEDS: Amitriptyline 25 MG Tablet PO (20:56)
[2022-12-09] MEDS: Propranolol 10 MG Tablet PO (20:56)
[2022-12-09] MEDS: traZODone 100 MG Tablet PO (20:56)
[2022-12-09] MEDS: DULoxetine Hcl 60 MG Capsule PO (20:56)
[2022-12-09] MEDS: Lithium Carbonate 300mg Capsule 600 MG PO (20:57)
[2022-12-10 03:00] VITALS: BP 132/72; PULSE 59; RESP 16; TEMP 36.3; O2SAT 97
[2022-12-10] MEDS: 0.9% Saline Lock 10 ML Syringe IV (06:19)
[2022-12-10] MEDS: Morphine 4 MG/ML Syringe IV (06:19)
--- NOTE | 2022-12-10 06:28 | PCM.PN.SRG ---
Subjective Subjective The patient is remained very stable overnight. I suspect he just had a small collected hematoma from his operative anticoagulation and preoperative anticoagulation on clopidogrel. With wound care and direct pressure that has resolved. Objective Data Objective Data Vital Signs: Vital Signs Temp Pulse Resp BP Pulse Ox O2 Del Method O2 Flow Rate 97.4 F L 59 L 16 132/72 H 97 Nasal Cannula 2 12/10/22 03:00 12/10/22 03:00 12/10/22 03:00 12/10/22 03:00 12/10/22 03:00 12/10/22 03:00 12/10/22 03:00 Oxygen Flow Rate (L/min) 2 Oxygen Delivery Method Nasal Cannula Weight: 253 lb 8.505 oz Body Mass Index (BMI) 33.4 Intake & Output: Intake and Output for Last 24 Hours 12/08/22 12/09/22 12/10/22 23:59 23:59 23:59 Intake Total 3215 / 3215 Output Total 500 / 500 Balance 3215 / 3215 -500 / -500 Lab / Micro Data Result Diagrams: 11/27/22 10:02 11/27/22 10:02 Labs: Laboratory Results - last 24 hr 12/09/22 11:27: POC Glucose 174 H Physical Exam Narrative The patient's right neck is clean and dry. The position no bleeding overnight. It has same amount of swelling is initially postoperatively. He is alert neurologically stable. Assessment & Plan Assessment/Plan (1) Stenosis of right carotid artery: (2) Postoperative hematoma: PLAN: Plan Patient appears to be very stable. I will reinitiate diet and activity. Anticipate likely discharge later today pending patient's progress. Randall Gilbert M.D., F.A.C.S.
[2022-12-10] MEDS: Lactulose 20 GM/30 ML UDC 10 GM PO (07:43)
[2022-12-10] MEDS: Acetaminophen 500 MG Tablet PO (07:43)
[2022-12-10 07:44] VITALS: PULSE 55
[2022-12-10] MEDS: Losartan Potassium 100 MG Tablet PO (07:44)
[2022-12-10] MEDS: amLODIPine 10 MG Tablet PO (07:44)
[2022-12-10] MEDS: hydroCHLOROthiazide 25 MG Tablet PO (07:44)
[2022-12-10] MEDS: Propranolol 10 MG Tablet 20 MG PO (07:44)
[2022-12-10] MEDS: Metoprolol(XL)Succ 100 MG Tablet PO (07:44)
[2022-12-10] MEDS: Lithium Carbonate 300mg Capsule 300 MG PO (07:44)
[2022-12-10] MEDS: Finasteride 5 MG Tablet PO (07:45)
[2022-12-10] MEDS: metFORMIN (XR) 500 MG Tablet PO (07:45)
[2022-12-10 08:11] VITALS: BP 140/65; PULSE 64; RESP 18; TEMP 36.3; O2SAT 98
--- NOTE | 2022-12-10 09:35 | CASEMGMT ---
DELVIN BUTLER Assessment: Face to Face with pt for initial transition planning/care coordination assessment. RN CARRIE introduced self and role at [facility], pt voices understanding and consents to assessment. Pt is A/O x4 and answers all questions appropriately at this time. Pt sitting up in chair with oxygen on and at bedside. Care providers, pharmacy, and demographics verified/updated. Admitting Dx: R carotid endarterectomy PCP:Jaron Specialists:Vladimir, OR; Yohan, neuro; Masci, onc; Irlanda, uro; Basali, pain mgmt Preferred Pharmacy: [facility] Retail Insurance: [employer] Benefit: yes LNOK: Kristyn Huitron, Living Arrangements: Pt lives with in a single story home with 3 steps to enter with a rail on both sides. Pt reports he is I in ADL's and denies concerns at home. Transportation: Pt drives self and denies concerns with transportation. DME/HHC/SNF: Pt has a cane but does not use. Pt denies hx of HHC or SNF stays. Pt states no concerns with going home at time of dc. Pt states no further concerns/needs. CM to follow. Advised pt to ask CM if any further question/concerns/needs arise, voices understanding. Pt Goal: Home Plan: Home
[2022-12-10 13:40] VITALS: BP 111/51; PULSE 50; RESP 18; TEMP 36.7; O2SAT 97
== END 2022-12-10 14:35 | disposition home or self-care (01) | DRG 39 ==
LOC: ACINP 06:13 → MS3 12-10 07:26
PROVIDERS: Admitting Provider Surgery; PCP Family Medicine; Referring Provider Surgery; Visit Provider Surgery
PROC: 03CM0ZZ Extirpation of Matter from Right External Carotid Artery, Open Approach (ICD-10-PCS; CPT 35301; principal; 2022-12-09 07:10)
DX: I65.21 Occlusion and stenosis of right carotid artery (principal); D47.2 Monoclonal gammopathy; E11.40 Type 2 diabetes mellitus with diabetic neuropathy, unspecified; F31.9 Bipolar disorder, unspecified; G40.909 Epilepsy, unspecified, not intractable, without status epilepticus; I10 Essential (primary) hypertension; E78.5 Hyperlipidemia, unspecified; F10.10 Alcohol abuse, uncomplicated; I25.2 Old myocardial infarction; Y90.9 Presence of alcohol in blood, level not specified; E66.9 Obesity, unspecified; Z68.33 Body mass index [BMI] 33.0-33.9, adult; Z79.02 Long term (current) use of antithrombotics/antiplatelets; Z79.84 Long term (current) use of oral hypoglycemic drugs; Z79.899 Other long term (current) drug therapy
CPT/HCPCS: 36415; 80048; 82962; 85027; 88304; 88311; 93005; 99252; J7040; J7120; A4216; G0463; J2405

== ENCOUNTER → 2022-12-16 | Outpatient (CLI) | payer OTHER, SELFPAY ==
--- NOTE | 2022-12-16 14:10 | CDU_ITS ---
Reason For Study: Postoperative swelling at right neck incision Rt. Velocities/BP Lt. Velocities/BP Prox CCA 73/12.6 cm/sec. Prox CCA 78.4/15.7 cm/sec. Mid CCA 54.1/14.5 cm/sec. Mid CCA 69.6/16.8 cm/sec. Dist CCA 56/13.5 cm/sec. Dist CCA 64.1/14.6 cm/sec. Prox ICA 45.4/10.2 cm/sec. Prox ICA 60.5/18.8 cm/sec. Mid ICA 72.9/21.2 cm/sec. Mid ICA 70.4/22.5 cm/sec. Dist ICA 69.6/19 cm/sec. Dist ICA 76.5/21.2 cm/sec. Rt. ICA/CCA = 1.30. Lt. ICA/CCA = 1.10. Prox ECA 139.4/9.7 cm/sec. Prox ECA 102.3/10.2 cm/sec. Rt. Vert. 49.8/11.3 cm/sec. Lt. Vert. 31.1/8 cm/sec. Right Extracranial There is homogeneous, smooth atherosclerotic plaque noted in the right common carotid artery. There is intimal thickening but no significant atherosclerotic plaque noted in the right internal carotid artery. There is heterogeneous, irregular atherosclerotic plaque noted in the right external carotid artery. Antegrade flow is noted in the right vertebral artery. Large nonvascularized structure noted in the right side of neck. Left Extracranial There is homogeneous, smooth atherosclerotic plaque noted in the left common carotid artery. There is homogeneous, smooth atherosclerotic plaque noted in the left internal carotid artery. There is intimal thickening but no significant atherosclerotic plaque noted in the left external carotid artery. Antegrade flow is noted in the left vertebral artery. Procedure Carotid Duplex 11253. This is a Carotid Duplex examination using B-mode, color flow and specral Doppler. Preliminary report to Sadia HARGROVE. Exam performed in department. VL/Carotid Duplex Ultrasound Interpretation Summary 2.06 x 4.99 cm right neck soft tissue structure consistent with known hematoma. No active blood flow identified. Post operative changes of the right carotid bulb and proximal internal carotid artery with intimal thickening but no significant plaque. The previous mobile plaque is not identif ied. Less than 50% stenosis of the internal carotid. Less than 50% stenosis right external carotid Smooth plaque at the proximal left internal carotid with less than 50% stenosis . Less than 50% stenosis left external carotid Patent antegrade vertebrals bilaterally Ordering Physician: Randall Gilbert Referring Physician: Derrell Salmeron Performed By: Helena Helton RVT
== END | disposition home or self-care (01) ==
LOC: CVS 14:08
PROVIDERS: PCP Family Medicine; Visit Provider Surgery
DX: S10.93XA Contusion of unspecified part of neck, initial encounter (principal)
CPT/HCPCS: 93880

== ENCOUNTER → 2023-01-08 | Outpatient (CLI) | payer OTHER, SELFPAY | END | disposition home or self-care (01) | LOC: MFPLAB 14:09 | PROVIDERS: PCP Family Medicine; Referring Provider Family Medicine; Visit Provider Family Medicine | DX: F31.9 Bipolar disorder, unspecified (principal) | CPT/HCPCS: 36415; 80178 ==

== ENCOUNTER → 2023-01-21 | Outpatient (CLI) | payer OTHER, SELFPAY ==
[2023-01-21 13:13] LABS: Thyroid Stim Hormone (TSH) 3.91 uIU/mL (0.358-3.74)
== END | disposition home or self-care (01) ==
LOC: MFPLAB 10:03
PROVIDERS: PCP Family Medicine; Referring Provider Family Medicine; Visit Provider Psychiatry & Neurology Neurology
DX: E72.20 Disorder of urea cycle metabolism, unspecified (principal)
CPT/HCPCS: 36415; 82140; 84443

== ENCOUNTER → 2023-01-30 | Outpatient (CLI) | payer OTHER, SELFPAY | END | disposition home or self-care (01) | LOC: MFPLAB 09:35 | PROVIDERS: PCP Family Medicine; Referring Provider Family Medicine; Visit Provider Family Medicine | DX: E72.20 Disorder of urea cycle metabolism, unspecified (principal) | CPT/HCPCS: 36415; 82140 ==

== ENCOUNTER → 2023-02-02 | Outpatient (CLI) | payer OTHER, SELFPAY ==
--- NOTE | 2023-02-02 06:27 | MRI_ITS ---
EXAM: MR HEAD WITHOUT AND WITH INTRAVENOUS CONTRAST CLINICAL INDICATION: LOSS OF BALANCE TECHNIQUE: Multiplanar and multisequence MR images of the brain were obtained without and with intravenous contrast. This report was created using [employer] report generation technology. CONTRAST: IV 22ml clariscan COMPARISON: 08.30.21 FINDINGS: BRAIN AND EXTRA-AXIAL SPACES: Unremarkable. No intra- or extra-axial hemorrhage. No evidence of acute infarct. No intracranial mass or mass effect. There is preservation of the rodgers/white matter interface. Posterior fossa structures are unremarkable. Ventricles are appropriate for age. No hydrocephalus. Basal cisterns are patent. SELLA: Unremarkable. Normal sella turcica, pituitary gland, infundibular stalk, optic chiasm and hypothalamus. AUDITORY SYSTEM: Unremarkable. The internal auditory canals are patent. BONES/JOINTS: Unremarkable. No discrete lytic or blastic abnormalities. SINUSES: Unremarkable as visualized. Clear. MASTOID AIR CELLS: Unremarkable as visualized. Clear. ORBITS: Unremarkable as visualized. Both globes, extraocular muscles, optic nerves and retrobulbar fat appear unremarkable. VASCULATURE: Unremarkable as visualized. Normal flow voids in the major intracranial circulation. MRI/Brain W/WO Contrast IMPRESSION: Negative MRI brain without and with intravenous contrast. Electronically Signed: Xavier Londono MD at 16:45 EDT ,
[2023-02-02 07:05] LABS: CREATININE FINGERSTICK < 0.9 mg/dL (0.70-1.30); EGFR FINGERSTICK > 60.0000 mL/min (>60)
== END | disposition home or self-care (01) ==
LOC: MRI 06:20
PROVIDERS: PCP Family Medicine; Referring Provider Family Medicine; Visit Provider Family Medicine
DX: R26.89 Other abnormalities of gait and mobility (principal)
CPT/HCPCS: 70553; A9575

== ENCOUNTER → 2023-02-04 | Outpatient (CLI) | payer OTHER, SELFPAY ==
--- NOTE | 2023-02-04 07:50 | US_ITS ---
STUDY: ABDOMINAL ULTRASOUND - RIGHT UPPER QUADRANT REASON FOR VISIT: Male, 62 years old elevated LFTs TECHNIQUE: Ultrasound evaluation of the right upper quadrant was performed with real-time and static rodgers-scale imaging. TECHNICAL QUALITY: Adequate. COMPARISON: None. FINDINGS: Liver: The liver measures 22.3 cm. There is increased echogenicity consistent with fatty infiltration. The bile ducts are within normal limits. There is hepatic color flow. The direction of portal flow is hepatopetal. There is no demonstrated mass lesion. Gallbladder: Normal distended gallbladder. The gallbladder wall measures 2.0 mm. There is a negative sonographic Villegas''s sign. There is no pericholecystic fluid. There are no gallstones. Common Bile Duct (C.B.D.): The common bile duct measures 5.2 mm. Pancreas: Normal size of the head, body and tail of the pancreas. There is normal echogenicity of the pancreas. There is no demonstrated pancreatic mass or cyst. Right Kidney: Normal size of the right kidney. The right kidney measures 11.8 x 6.1 x 7.1 cm. Normal renal cortex. The right cortex measures 2.6 cm. There is no demonstrated renal mass or cyst. There is no right hydronephrosis. US/Abdomen Limited IMPRESSION: Hepatomegaly with diffuse fatty infiltration of the liver, no discrete lesion Electronically Signed: Tang Palmer MD at 11:30 EDT ,
== END | disposition home or self-care (01) ==
LOC: US 07:50
PROVIDERS: PCP Family Medicine; Visit Provider Family Medicine
DX: R79.89 Other specified abnormal findings of blood chemistry (principal)
CPT/HCPCS: 76705

== ENCOUNTER → 2023-02-05 | Outpatient (CLI) | payer OTHER, SELFPAY ==
[2023-02-05 09:59] LABS: PSA,Total - Annual Screen 2.14 ng/mL (0.00-4.00)
== END | disposition home or self-care (01) ==
LOC: LAB 08:33
PROVIDERS: PCP Family Medicine; Referring Provider Urology; Visit Provider Urology
DX: Z12.5 Encounter for screening for malignant neoplasm of prostate (principal)
CPT/HCPCS: 36415; 84153; G0103

== ENCOUNTER 2023-03-24 08:00 | Outpatient (RCR) | payer OTHER, SELFPAY ==
--- NOTE | 2023-03-10 09:26 | HP.PTEVAL ---
Patient's Visit Information NIKO BROWN is a 62 year old M referred to Physical Therapy by Dr. Derrell Salmeron MD with a diagnosis of Neuropathy and imbalance. Date of Evaluation: 02/24/23 Physical Therapist: Husam Fox DPT - Visit Plan Frequency: Every Other Week Duration: 6 Weeks Plan: Pt. to be educated in dynamic and static balance activities. Progress HEP as able. Re check orthostatic pressures next visit. - Subjective Pt. is here today for his initial evaluation with diagnosis neuropathy and loss of balance. Pt. reports seeing a lot of different physicians for multiple issues. He is seeing hematology for blood issues. Pt. reports having some back pain, but is doing better a little bit. He reports having some imbalance with walking, at least with his initial walking. Pt. reports he has some loss of sensation in his feet. Pt. reports that he feels imbalance when he first gets up to walk, but then doers okay after. He has not fallen, but reports instability with his initial movements. Pt. is hopeful to increase his stability and be able to all of his daily activities without increase in instability. - Objective POSTURE: pt. has FH posture with rounded shoulders, normal LUIS in stance. PALPATION: Pt. has no pain with palpation of BLEs. NEURO: Pt. decreased sensation in BLEs. decreased DTR of BLE achilles 1+. ROM: Pt. has fairly normal ROM of BLEs, tightness in B calves and B knees R worse than L. MMT: 5/5 strength throughout BLEs. Pt. reports mild pain with testing of his R knee. GAIT: Pt. has fairly normal gait pattern. Pt. has slightly widened LUIS. Pt. has slight increase in lateral sway, but nothing major. STAIRS: PT. is able to ascend and decend with 1 HR with reciprocal pattern and step to pattern to descend. - Balance/Special Test Scores Functional Gait Assessment Score: 28 % Disability: 6.6700 CATSIB Score (Max score 120 seconds): 98 Lower Extremity Functional Score: 31 TUG Test Time Seconds: 7.3 - Goals Goal 1:: LTG: Pt. to be I with HEP without issues. Goal Time Frame: 2-4 Weeks Goal 2:: STG: Pt. be able to walk throughout the day without reports of imbalance. Goal Time Frame: 2-4 Weeks Goal 3:: LTG: Pt. reports no dizziness with initial standing after prolonged sitting. Goal Time Frame: 4-6 Weeks - Rehabilitation Potential Physical Therapy Diagnosis: Pt. has signs consistent of neuropathy and imbalance. He overall did well with PT this date. Pt. passed most of the balance activities without issues today. He reports some off balance, possible light headedness with initial standing after prolonged sitting. I will look more into orthostatic to make sure. I will also work on some instability exercises to increase ankle and hip control. Rehabilitation Potential: Excellent - Anticipated Interventions Patient/Client Instruction: Educate patient on: Condition, Plan of Care, Risk Factors, Benefits of Fitness Program For the Purpose of:: To improve decision making, To facilitate caregiver knowledge, To improve self management, To prevent re-injury, To improve ability to perform tasks related to life management Therapeutic Exercise to Include: Strength training, Balance training, Flexibilty training, Gait and locomotor training For the Purpose of:: To increase ROM, To improve nutrient delivery to tissue, To increase oxygenation perfusion, To improve health of tissue, To decrease soft tissue restriction, To increase flexibility/ROM Thank you for the opportunity to evaluate your patient. For Medicare and Medicare HMO plans, please review the plan of care and approve it. It will need to be FAXED BACK to us at [phone] for Medicare purposes. For Medicare only, by signing this I certify the plan of care. Please let me know if there are questions or concerns regarding this plan of care. Physician Signature: Date:
--- NOTE | 2023-03-24 10:55 | HP.PTDCSUM ---
It has been my pleasure to treat NIKO BROWN referred by Dr. Derrell Salmeron MD, with the diagnosis of Neuropathy and imbalance for a total of 3 visit(s). Discharge Date: 03/24/23 Please see the following information for a summary of their discharge status. Subjective: Pt. reports having 1 dizzy spell the last week. He got up walked ~10 feet them became very light headed. This lasted ~30 seconds then went away. Objective/Function: Pt. did well with PT this date. He is I with his balance activities at this point in time. He does describe dizziness last week after initially getting up. I talked to him about potential of orthostatic. he is to trial taking BPs in sitting and initial standing to determine if there is a change. At this point in time and with his limited number of visits available, I would like him to continue with his exercises on his own. Pt. consents. Goal 1:: LTG: Pt. to be I with HEP without issues. Goal Progress: Goal Met Goal 2:: STG: Pt. be able to walk throughout the day without reports of imbalance. Goal Progress: Goal Met Goal 3:: LTG: Pt. reports no dizziness with initial standing after prolonged sitting. Goal Progress: Progressing Plan: Pt. to be DC to HEP for his balance exercises at this point in time. Discharge Comments: Pt. will be Dc to HEP with focus on balance, both statically and dynamically. Pt. consents to this plan. He was given exercises to progress his LOS, but also his ability to self correct his LOB. Pt. is doing well and will be DC from PT this date. If there are questions or concerns regarding this patient's physical therapy, please feel free to call me at [phone]. Thank you for the referral of this patient. Sincerely, Husam Fox, DPT Balance/Gait/Functional tests - Balance/Special Test Scores Functional Gait Assessment Score: 28 % Disability: 6.6700 CATSIB Score (Max score 120 seconds): 98 Lower Extremity Functional Score: 61 TUG Test Time Seconds: 7.3 Tug Test: <10 sec.=free mobile
== END 2023-03-24 19:00 | disposition home or self-care (01) ==
LOC: PT 08:00
PROVIDERS: PCP Family Medicine; Referring Provider Family Medicine; Visit Provider Family Medicine
DX: G62.9 Polyneuropathy, unspecified (principal); R26.81 Unsteadiness on feet
CPT/HCPCS: 97110; 97161

== ENCOUNTER → 2023-05-04 | Outpatient (CLI) | payer OTHER, SELFPAY ==
[2023-05-04 12:33] LABS: Absolute Lymphocyte Count 2.18 X10^3/uL (0.83-4.51); Basophil# 0.11 X10^3/uL; Basophil% 1.1 % (0-1); Eosinophil# 0.29 X10^3/uL; Hematocrit 40.5 % (40-54); Lymphocyte # 2.18 X10^3/ul (0.83-4.51); Lymphocyte % 22.7 % (19-41); Mean Corp Hgb Conc 32.1 g/dL (32-36); Mean Corpuscular Hgb 29.1 pg (27.0-32.0); Mean Corpuscular Volume 90.8 fL (80-94); Mean Platelet Vol. 9.9 fl (6.2-12.0); Monocyte# 0.98 X10^3/uL; Monocyte% 10.2 % (0-10); NRBC Flagged by Analyzer 0 % (0-5); Neutrophil % 62.5 % (47-70); Platelet Count 282 K/mm3 (150-450); RBC Distribution Width CV 13.9 % (11.6-14.6); Red Blood Count 4.46 M/mm3 (4.6-6.2); White Blood Count 9.6 K/mm3 (4.4-11.0)
[2023-05-04 13:58] LABS: AST(SGOT) 26 U/L (15-37); Alanine Aminotransfer ALT/SGPT 36 U/L (16-61); Albumin, Serum 3.2 g/dL (3.2-5.0); Alkaline Phosphatase 55 U/L (45-117); Anion Gap 7 (5-15); BUN 8 mg/dL (7-18); BUN/Creat Ratio 9.1 RATIO (10-20); Calcium,Total 8.5 mg/dL (8.5-10.1); Chloride 109 mmol/L (98-107); Cholesterol 123 mg/dL (200); Creatinine, Serum 0.88 mg/dL (0.70-1.30); EST Glomerular Filtration Rate 93 mL/min (>60); Est Glom Filt Rate - Afr Amer 112 mL/min (>60); Globulin 3.1 g/dL (2.2-4.2); Glucose 116 mg/dL (74-106); High Density Lipoprotein 38 mg/dL; Potassium 3.9 mmol/L (3.5-5.1); Protein, Total 6.3 g/dL (6.4-8.2); Sodium Level 140 mmol/L (136-145); Triglycerides 136 mg/dL; Very Low Density Lipoprotein 27 mg/dL (5-40)
[2023-05-04 14:13] LABS: Hemoglobin A1c 5.7 % (3.8-5.6)
== END | disposition home or self-care (01) ==
LOC: MFPLAB 09:50
PROVIDERS: PCP Family Medicine; Visit Provider Family Medicine
DX: E11.9 Type 2 diabetes mellitus without complications (principal)
CPT/HCPCS: 36415; 80053; 80061; 83036; 84443; 85025

== ENCOUNTER → 2023-05-14 | Outpatient (CLI) | payer OTHER, SELFPAY ==
[2023-05-14 12:57] LABS: Microalbumin,Random Urine 6.6 mg/L (NO RANGE EST.); Microalbumin:Creatinine Ratio 5.3 mg/g CRE (<30 mg/g CRE)
== END | disposition home or self-care (01) ==
LOC: LABSPEC 11:05
PROVIDERS: PCP Family Medicine; Visit Provider Family Medicine
DX: E11.9 Type 2 diabetes mellitus without complications (principal)
CPT/HCPCS: 82043; 82570

== ENCOUNTER → 2023-06-10 | Outpatient (CLI) | payer OTHER, SELFPAY ==
--- NOTE | 2023-06-10 07:02 | MRI_ITS ---
STUDY: MRI RIGHT KNEE REASON FOR EXAM: Male, 62 years old. Chronic generalized knee pain. TECHNIQUE: Standardized fat and water weighted pulse sequences were obtained in all 3 orthogonal planes. COMPARISON: Right knee x-rays dated January 21, 2023. 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 Moderate thinning of the articular cartilage of the medial femorotibial compartment with reactive subchondral bone marrow edema (coronal series 6 images 12-22). Mild MCL sprain (coronal series 6 image 15. Normal distal semimembranosus, gracilis and semitendinosus tendons. Complex tear of the posterior horn of the medial meniscus extending into the body with loss of substance of the body and posterior horn (sagittal series images 3-9, coronal series 6 images 8-14). Moderate thinning of the articular cartilage of the lateral femorotibial compartment (coronal series 6 images 11-18). Normal lateral femoral condyle and tibial plateau. Normal proximal tibiofibular articulation. Normal lateral collateral (fibular) ligament. Normal popliteus tendon. Normal biceps femoris tendon. Normal anterior cruciate ligament (ACL). Normal posterior cruciate ligament (PCL). Lateral tilt and subluxation of the patella with surface irregularity of the articular cartilage of the medial and lateral patellar facets (axial series 2 images 11-16). Normal medial and lateral patellar retinaculum. Normal quadriceps tendon. Normal patellar tendon. Normal Hoffa''s fat pad. Deep infrapatellar bursitis (sagittal series 4 image 11). Moderate-sized joint effusion with medial plica and moderate-sized septated dissecting popliteal cyst which has ruptured proximally (axial series 2 images 13-26). Marked prepatellar subcutaneous soft tissue edema with a fluid collection anterior to the proximal patella representing prepatellar bursitis (sagittal series 4 images 4-15). Normal visualized osseous structures. 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 Moderate thinning of the articular cartilage of the medial femorotibial compartment. Mild MCL sprain. Complex tear of the posterior horn of the medial meniscus extending into the body with loss of substance of the body and posterior horn. Moderate thinning of the articular cartilage of the lateral femorotibial compartment. Lateral tilt and subluxation of the patella with surface irregularity of the articular cartilage of the medial and lateral patellar facets. Deep infrapatellar bursitis. Marked prepatellar subcutaneous soft tissue edema with prepatellar bursitis. Moderate-sized joint effusion with medial plica. Moderate-sized septated dissecting popliteal cyst with rupture approximately. Electronically Signed: Alfa Bains MD at 9:38 EDT ,
== END | disposition home or self-care (01) ==
LOC: MRI 06:54
PROVIDERS: PCP Family Medicine; Referring Provider Orthopaedic Surgery; Visit Provider Orthopaedic Surgery
DX: M23.91 Unspecified internal derangement of right knee (principal)
CPT/HCPCS: 73721

== ENCOUNTER → 2023-07-24 | Outpatient (CLI) | payer MEDICARE, OTHER, SELFPAY ==
--- NOTE | 2023-07-24 08:52 | RDU_ITS ---
Reason For Study: HTN Right Renal Artery Left Renal Artery Right renal artery ostium 166/38 Left renal artery ostium 68/15 RSV/EDV. PSV/EDV. Right renal artery proximal 147/32 Left renal artery proximal PSV/EDV PSV/EDV. 68/13 . Right renal artery mid 168/33 Left renal artery mid 63/14 PSV/EDV. PSV/EDV . Right renal artery distal 176/31 Left renal artery distal 149/23 PSV/EDV. PSV/EDV. Right RAR 2.05. Left RAR 1.73. Right Renal Parenchyma Left Renal Parenchyma Upper Pole Medula 20/7 PSV/EDV. Left upper pole medulla 32/8 Right upper pole medulla EDR 0.35 . PSV/EDV . Right upper pole medulla R.I. Left upper pole medulla EDR 0.25 . 0.67 . Left upper pole medulla R.I. 0.75 . Upper Heladio Cortx 20/5 PSV/EDV. UP Cortex 35/9 PSV/EDV. Right upper pole cortex EDR 0.25 . Left upper pole cortex EDR 0.26 . Right upper pole cortex R.I. 0.72 . Left upper pole cortex R.I. 0.75 . Right lower Pole medulla 24/7 Left lower Pole medulla 39/10 PSV/EDV . PSV/EDV . Right lower pole medulla EDR 0.29 . Left lower pole medulla EDR 0.26 . Right lower pole medulla R.I. Left lower pole medulla R.I. 0.75 . 0.73 . Lower Pole Cortx 17/6 PSV/EDV. Lower Pole Cortex 28/7 PSV/EDV. Left lower pole cortex EDR 0.35 . Right lower pole cortex EDR 0.25 . Left lower pole cortex R.I. 0.65 . Right lower pole cortex R.I. 0.77 . Left Renal Hilar Right Renal Hilar LT Hilar avg 110/20 PSV/EDV . Right Hilar avg 94/15 PSV/EDV. Left hilar acceleration time 40 Right hilar acceleration time 30 m/sec. m/sec. Left Renal Dimensions Right Renal Dimensions Left kidney size 12.46 cm . Right kidney size 12.6 cm . Left cortical dimension 2.20 cm . Right cortical dimension 1.42 cm . Aorta Proximal abdominal aorta 2.09cm x 1.90 cm . Proximal abdominal aorta peak systolic velocity is 86 cm/sec . Distal abdominal aorta 2.06cm x 2.22 cm . Distal abdominal aorta peak systolic velocity is 84 cm/sec . Procedures Technically difficult study due to patient body habitus. VL/Renal Artery Duplex Ultrasound Interpretation Summary Right renal artery patent with normal velocities and no evidence of stenosis Left renal artery patent with normal velocities and no evidence of stenosis Right renal vein patent Left renal vein patent Right kidney normal in size Left kidney normal in size Ordering Physician: Derrell Salmeron Referring Physician: Derrell Salmeron Performed By: Bria Marks, MORGAN, RVT
== END | disposition home or self-care (01) ==
LOC: CVS 08:46
PROVIDERS: PCP Family Medicine; Referring Provider Family Medicine; Visit Provider Family Medicine
DX: I10 Essential (primary) hypertension (principal)
CPT/HCPCS: 93975

== ENCOUNTER → 2023-07-28 | Outpatient (CLI) | payer MEDICARE, OTHER, SELFPAY ==
--- NOTE | 2023-07-28 13:49 | US_ITS ---
INDICATION: ESSENTIAL (PRIMARY) HYPERTENSION EXAMINATION: Ultrasound US Kidney(s) complete (eg, kidneys and bladder) TECHNIQUE: Koo scale and color doppler images were obtained of the kidneys. COMPARISON: Prior study dated: 02/04/2023 FINDINGS: RIGHT KIDNEY: 11.4 x 5.3 x 6.7 cm. There is no hydronephrosis. No shadowing calculus, focal lesion or perinephric collection is demonstrated. LEFT KIDNEY: 12.1 x 6.3 x 7.3 cm. There is no hydronephrosis. No shadowing calculus, focal lesion or perinephric collection is demonstrated. URINARY BLADDER: Normally distended without wall thickening. A right ureteral jet is seen. US/Kidney and Bladder IMPRESSION: Normal renal ultrasound. Electronically Signed: Dilan Stack MD at 23:00 EDT ,
== END | disposition home or self-care (01) ==
LOC: US 13:44
PROVIDERS: PCP Family Medicine; Referring Provider Family Medicine; Visit Provider Family Medicine
DX: I10 Essential (primary) hypertension (principal)
CPT/HCPCS: 76770

== ENCOUNTER → 2023-08-26 | Outpatient (CLI) | payer OTHER, MEDICARE, SELFPAY ==
[2023-08-26 10:09] LABS: Absolute Lymphocyte Count 2.97 X10^3/uL (0.83-4.51); Absolute Neutrophil Count 8.6 X10^3/uL (2.0-7.7); Basophil# 0.14 X10^3/uL; Basophil% 1.1 % (0-1); Eosinophil# 0.26 X10^3/uL; Hematocrit 41.9 % (40-54); Hemoglobin 13.7 g/dL (13.0-16.5); Lymphocyte # 2.97 X10^3/ul (0.83-4.51); Lymphocyte % 22.4 % (19-41); Mean Corp Hgb Conc 32.7 g/dL (32-36); Mean Corpuscular Hgb 30.1 pg (27.0-32.0); Mean Corpuscular Volume 92.1 fL (80-94); Mean Platelet Vol. 9.8 fl (6.2-12.0); Monocyte# 1.13 X10^3/uL; Monocyte% 8.5 % (0-10); NRBC Flagged by Analyzer 0 % (0-5); Neutrophil # 8.58 X10^3/uL (2.7-7.7); Neutrophil % 64.8 % (47-70); Platelet Count 281 K/mm3 (150-450); RBC Distribution Width CV 13.8 % (11.6-14.6); RBC Distribution Width SD 46.8 fl (35.1-43.9); Red Blood Count 4.55 M/mm3 (4.6-6.2); White Blood Count 13.2 K/mm3 (4.4-11.0)
[2023-08-26 10:39] LABS: ALB/GLOB Ratio 1.1 RATIO (0.9-2.4); AST(SGOT) 18 U/L (15-37); Alanine Aminotransfer ALT/SGPT 38 U/L (16-61); Albumin, Serum 3.3 g/dL (3.2-5.0); Alkaline Phosphatase 43 U/L (45-117); Anion Gap 6 (5-15); BUN 15 mg/dL (7-18); Calcium,Total 8.6 mg/dL (8.5-10.1); Chloride 105 mmol/L (98-107); Cholesterol 150 mg/dL (200); EST Glomerular Filtration Rate 80 mL/min (>60); Est Glom Filt Rate - Afr Amer 96 mL/min (>60); Globulin 3.1 g/dL (2.2-4.2); Glucose 132 mg/dL (74-106); High Density Lipoprotein 45 mg/dL; Potassium 4.1 mmol/L (3.5-5.1); Protein, Total 6.4 g/dL (6.4-8.2); Sodium Level 137 mmol/L (136-145); Triglycerides 223 mg/dL; Very Low Density Lipoprotein 45 mg/dL (5-40)
== END | disposition home or self-care (01) ==
LOC: MFPLAB 08:50
PROVIDERS: PCP Family Medicine; Visit Provider Family Medicine
DX: E11.8 Type 2 diabetes mellitus with unspecified complications (principal)
CPT/HCPCS: 36415; 80053; 80061; 83036; 85025

== ENCOUNTER 2023-09-07 08:00 | Outpatient (RCR) | payer OTHER, MEDICARE, SELFPAY ==
--- NOTE | 2023-08-12 13:46 | HP.PTEVAL_ITS ---
Patient's Visit Information Visit Information Visit Information: NIKO BROWN is a 62 year old M referred to Physical Therapy by Dr. Derrell Salmeron MD with a diagnosis of BPPV. Date of Evaluation: 08/12/23 Physical Therapist: ORALIA Jean Visit Plan Frequency: 2x /Week Duration: 6 Weeks Plan: Pt got the same dizzy feeling within 10 seconds of starting horizontal and vertical smooth pursuit. He has inflammation of B eyes and just got a prescription from the eye Dr this morning that he has not picked up. I feel that the pt needs to work on a HEP of smooth Pursuit exercises to help with his eye inflammation/movement and take his meds as prescribed by his eye Dr. Will have the pt return next week and see if his eye movements are better and if his dizziness is improving. Test FGA and CATSIB and set goals appropriately 2X/ week for 6 weeks if needed for progressive VOR exercises, testing balance and treatment of deficits if found with HEP Subjective Subjective: Dr sent him here because he has rocks in his ear and they are affecting his balance. He started to have to balance problems a few weeks ago. He has high BP all the time. The last time he went there he was 200/95 and was just at the eye Dr for puffy eyes and red a goopy eyes.... and since the high BP things have not been right. He is on a pill and eye salve and told him that his eye should clear up. He is lightheaded when standing. He is just not right in standing. He is retaining fluid and is on a water pill. His fluid is not getting absorbed in his body. He takes 4 pills for BP and he is still running 155/85. Sitting here right now she feels dizzy or slightly lightheaded. Standing up he feels no spinning but he feels off and not like himself. If he turns his head L and R he just feels off. If he looks up towards the ceiling or down to the floor the same thing. If he rolls over in bed nothing happens. He feels pressure behind his eyes and feels like they are hard to move. He feels a tiredness in the eyes. He can read and follow a screen ok and no falls as of yet. 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 Pain neuropathy in feet: Pain Intensity (Out of 10): 8 Objective Objective: R hallpike - for dizziness/nystagmus L Hallpike -for dizziness/nystagmus Observation: fluid retention under B eyes. B eyes are blood shot and red. He has a lot of external eye drainage and especially R eye crusty/drooping Seated smooth pursuit: Horizontal and vertical he got dizzy within approx 10 seconds with the same dizziness he has been feeling lately Seated moving head and eyes together: X 40 seconds before pt got dizzy as he was moving his head more than his eyes Balance/Special Test Scores Dizziness Score: 36 Goals Goal 1:: I HEP Goal Time Frame: 6-8 Weeks Goal 2:: Be able to do smooth pursuit in standing both vertical and horizontal without dizziness for 60 seconds Goal Time Frame: 6-8 Weeks Goal 3:: Test FGBOB Maldonado Rehabilitation Potential Rehabilitation Potential: Good Anticipated Interventions Patient/Client Instruction: Educate patient on: Condition For the Purpose of:: To decrease swelling/inflammation, To increase ROM, To improve nutrient delivery to tissue, To improve muscle performance and motor function, To improve gait and locomotor functions, To improve health of tissue, To decrease soft tissue restriction, To improve balance and To improve safety with gait Therapeutic Exercise to Include: Strength training, Endurance training, Balance training, Gait and locomotor training, Neuromotor development and Active ROM For the Purpose of:: To decrease swelling/inflammation, To increase ROM, To improve nutrient delivery to tissue, To improve muscle performance and motor function, To improve ability to perform ADL's, To increase tolerance to activity/condition/position, To improve performance and independence with ADL's, To decrease level of supervision to perform tasks, To improve ability of physical actions for home/community/work/leisure, To improve gait and locomotor functions, To improve health of tissue, To decrease soft tissue restriction, To increase flexibility/ROM, To improve balance and To improve safety with gait Functional Training to Include: Gait training For the Purpose of:: To improve safety with gait Text: Thank you for the opportunity to evaluate your patient. For Medicare and Medicare HMO plans, please review the plan of care and approve it. It will need to be FAXED BACK to us at [phone] for Medicare purposes. For Medicare only, by signing this I certify the plan of care. Please let me know if there are questions or concerns regarding this plan of care. Physician Signature: Date :
--- NOTE | 2023-09-07 09:37 | HP.PTDCSUM ---
Discharge Summary D/C summary: It has been my pleasure to treat NIKO BROWN referred by Dr. Derrell Salmeron MD, with the diagnosis of BPPV for a total of 4 visit(s). Discharge Date: 09/07/23 Please see the following information for a summary of their discharge status. Subjective Subjective: Pt reports that his dizzy is almost gone and even in stores or in the yard he is doing well. He walks and turns his head a lot with no dizziness. He is still retaining fluid but feels that his eye puffiness is going down some. Pain neuropathy in feet: Pain Intensity (Out of 10): 8 eye pain: Pain Intensity (Out of 10): 2 Overall Improvement % Improvement: 80 Objective Objective/Function: CATSIB 120/120 FGA 29/30 Goals Goal 1:: I HEP Goal Progress: Goal Met Goal 2:: Be able to do smooth pursuit in standing both vertical and horizontal without dizziness for 60 seconds Goal Progress: Goal Met Goal 3:: Test FGA Goal Progress: Goal Met Goal 4:: Increase balance on CATSIB (score was 110/120 at second visit) Goal Progress: Goal Met Plan Plan: DC PT to HEP with walking with horizontal and vertical head turns and continue with eye movement D/C Information Discharge Comments: DC PT to HEP d/c sentence: If there are questions or concerns regarding this patient's physical therapy, please feel free to call me at [phone]. Thank you for the referral of this patient. Sincerely, Richelle Barros, MPT Balance/Gait/Functional tests Balance/Special Test Scores Functional Gait Assessment Score: 29 % Disability: 3.3400 CATSIB Score (Max score 120 seconds): 110 Dizziness Score: 0 Improvement % Improvement: 80
== END 2023-09-07 10:14 | disposition home or self-care (01) ==
LOC: PT 08:00
PROVIDERS: PCP Family Medicine; Referring Provider Family Medicine; Visit Provider Family Medicine
DX: H81.10 Benign paroxysmal vertigo, unspecified ear (principal)
CPT/HCPCS: 97110; 97161; 97530

== ENCOUNTER → 2023-09-09 | Outpatient (CLI) | payer OTHER, MEDICARE, SELFPAY ==
--- NOTE | 2023-09-08 | LES_PTH ---
PATIENT: NIKO BROWN LOC: [facility] U#:[id number] AGE/SX: 63/M ROOM: RE09/09/[address]: Dr. Mateo Frazier MD : 1960 BED: DIS: 09/09/2023 SPEC #: [id number] RECD: 09/09/23 10:01 STATUS: KARINE YAZ #: [id number] SHONDA: 09/08/23 00:[address]: Mateo Frazier DEPT: SURGICAL PATHOLOGY RECD BY: Sherri Griffin ENTERED: 09/09/23 10:27 SP TYPE: Lesion OTHR DR: Dr. Derrell Salmeron MD Tissues: Skin of eyelid, NOS Procedures: Surgery Specimen Level III HEADER OPERATION: Left lower lid lesion PRE-OP DIAGNOSIS: Possible papilloma TISSUE SUBMITTED: Left lower eyelid lesion MICROSCOPIC DIAGNOSIS Left lower eyelid lesion, biopsy: Fibroepithelial polyp, mildly inflamed. AM:balwinder 09/10/2023 MICROSCOPIC DESCRIPTION Slides are reviewed. GROSS DESCRIPTION Received in fixative is one container labeled with the patient's name and designated LLL. The specimen consists of a piece of medina-white skin measuring 0.2 x 0.2 x 0.1 cm. The specimen is totally submitted in one cassette. / SJ:balwinder 09/09/2023 TC:5 [facility]: [id number]
== END | disposition home or self-care (01) ==
LOC: LABSPEC 10:08
PROVIDERS: PCP Family Medicine; Referring Provider Ophthalmology; Visit Provider Ophthalmology
DX: L98.9 Disorder of the skin and subcutaneous tissue, unspecified (principal)
CPT/HCPCS: 88304; 88305

== ENCOUNTER → 2023-11-24 | Outpatient (CLI) | payer OTHER, MEDICARE, SELFPAY ==
--- NOTE | 2023-11-24 08:44 | CDU_ITS ---
Reason For Study: Carotid Stenosis Rt. Velocities/BP Lt. Velocities/BP Prox CCA 135.7/27.9 cm/sec. Prox CCA 105.2/24.9 cm/sec. Mid CCA 130.2/33.4 cm/sec. Mid CCA 105.2/22.3 cm/sec. Dist CCA 90.0/22.5 cm/sec. Dist CCA 105.2/19.7 cm/sec. Prox ICA 64.4/18.3 cm/sec. Prox ICA 97.5/30.1 cm/sec. Mid ICA 76.2/25.9 cm/sec. Mid ICA 107.8/32.7 cm/sec. Dist ICA 114.1/43.0 cm/sec. Dist ICA 86.9/28.5 cm/sec. Rt. ICA/CCA = 0.9. Lt. ICA/CCA = 1.0. Prox ECA 220.8/30.1 cm/sec. Prox ECA 175.2/22.3 cm/sec. Rt. Vert. 79.1/20.6 cm/sec. Lt. Vert. 46.8/14.9 cm/sec. Right Extracranial There is homogeneous, smooth atherosclerotic plaque noted in the right common carotid artery. There is homogeneous, smooth atherosclerotic plaque noted in the right internal carotid artery. HX CEA. The right external carotid artery is not well visualized. Antegrade flow is noted in the right vertebral artery. Left Extracranial There is homogeneous, smooth atherosclerotic plaque noted in the left common carotid artery. There is heterogeneous, irregular atherosclerotic plaque noted in the left internal carotid artery. There is intimal thickening but no significant atherosclerotic plaque noted in the left external carotid artery. Antegrade flow is noted in the left vertebral artery. Procedure Carotid Duplex [id number]. This is a Carotid Duplex examination using B-mode, color flow and specral Doppler. The exam was diagnostic. Exam performed in department. VL/Carotid Duplex Ultrasound Interpretation Summary Postoperative changes of the right carotid bulb and proximal internal carotid a rtery with less than 50% stenosis of the internal carotid Greater than 50% stenosis right external carotid Minimal calcific plaque at the proximal left internal carotid artery with less than 50% stenosis Less than 50% stenosis left external carotid artery Patent and antegrade vertebral arteries bilaterally No stenosis change from the previous examination of December 16, 2022 Ordering Physician: Isabel Contreras Referring Physician: Derrell Salmeron Performed By: Ramón Thomas RVT
--- OUTSIDE RECORDS SUMMARY | 2023-11-24 09:04 | XMS RPT_ITS | CCD ---
Author Name Unknown Address [address] [place] [address] Organization [facility] Care Team Providers Care [facility] Name Role Phone Unavailable Primary Care Provider UnavailSilverio Jerez Primary Care Provider Silverio Sanchez Primary Care Provider [phone] PROVIDER, UNKNOWN Referring Unavailable SILVERIO SANCHEZ Primary Care UnavailDELMER Hogan Attending Unavailable DELMER GARDUNO Admitting Unavailable SILVERIO SANCHEZ Primary Care UnavailCarlos Radford DO Unavailable CARLOS STOREY Referring Unavailable SILVERIO SANCHEZ Primary Care UnavailCARLOS Radford Referring Unavailable SILVERIO SANCHEZ Primary Care UnavailSilverio Jerez Primary Care Provider [phone] SILVERIO SANCHEZ Primary Care Unavailable CARLOS STOREY Referring Unavailable CARLOS STOREY Attending Unavailable SILVERIO SANCHEZ Primary Care Unavailable CARLOS STOREY Referring Unavailable SILVERIO SANCHEZ Primary Care Unavailable SILVERIO SANCHEZ Primary Care Unavailable CARLOS STOREY Referring Unavailable SILVERIO SANCHEZ Primary Care Unavailable CARLOS STOREY Referring Unavailable CARLOS STOREY Attending Unavailable Medications Completed/Discontinued Medications Medication Drug Class(es) Dates Sig (Normalized) Sig (Original) acetaminophen 500 mg oral tablet (20 sources) take 2 tablets by mouth every six hours as needed acetaminophen (TYLENOL) 500 mg tablet Take 1,000 mg by mouth every 6 hours as needed. 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 Deficiency and other anemia (1 source) Anemia, unspecified; Translations: [Anemia, unspecified type] Onset: 11-06-2023 Episodic Essential hypertension (20 sources) Essential hypertension; Translations: [Essential (primary) hypertension] Onset: 07-16-2017 07-16-2017 Chronic Multiple myeloma (1 source) Multiple myeloma; Translations: [Multiple myeloma not having achieved remission] Chronic Neoplasms of unspecified nature or uncertain behavior (17 sources) Monoclonal gammopathy (clinical); Translations: [Monoclonal gammopathy] Onset: 04-17-2022 Chronic Other aftercare (1 source) Long-term current use of anticoagulant; Translations: [residential (current) use of anticoagulants] Episodic Other nervous system disorders (1 source) Sensory neuropathy; Translations: [Polyneuropathy, unspecified] Chronic Other nervous system disorders (2 sources) Neuropathy; Translations: [Polyneuropathy, unspecified] Chronic Other nervous system disorders (1 source) Disorder of the peripheral nervous system; Translations: [Polyneuropathy, unspecified] Chronic Other nervous system disorders (1 source) Polyneuropathy, unspecified; Translations: [Neuropathy] Onset: 12-17-2022 Chronic Past or Other Problems Problem Classification Problem Date Documented Da te Episodic/Chronic Other aftercare (1 source) residential (current) use of anticoagulants; Translations: [Chronic anticoagulation] Onset: 04-17-2022 Episodic Results Test Name Value Interpretation Reference Range Facil ity Vital Signs Date Time Vital Sign Value Performing Clinician Kiki tomas 12-23-2022 10:190500 Body temperature 97.2 [degF] Carlos Storey DO Work Phone: [facility] 12-23-2022 10:19-0500 Body weight 114.31 kg Carlos Storey DO Work Phone: [facility] 12-23-2022 10:19-0500 Diastolic blood pressure 66 mm[Hg] Carlos Storey DO Work Phone: [facility] 12-23-2022 10:19-0500 Heart rate 51 /min Carlos Storey DO Work Phone: [facility] 12-23-2022 10:19-0500 Systolic blood pressure 111 mm[Hg] Carlos Storey DO Work Phone: [facility] 05-02-2022 11:10-0400 Body temperature 98.2 [degF] Carlos Masci DO Work Phone: [facility] 05-02-2022 11:10-0400 Body weight 124.74 kg Carlos Masci DO Work Phone: [facility] 05-02-2022 11:10-0400 Diastolic blood pressure 75 mm[Hg] Carlos Masci DO Work Phone: [facility] 05-02-2022 11:10-0400 Heart rate 69 /min Carlos Masci DO Work Phone: [facility] 05-02-2022 11:10-0400 SaO2% (BldA) [Mass fraction] 95 % Carlos Masci DO Work Phone: [facility] 05-02-2022 11:10-0400 Systolic blood pressure 144 mm[Hg] Carlos Masci DO Work Phone: [facility] 04-02-2022 08:48-0400 Body temperature 98.49 [degF] Carlos Masci DO Work Phone: [facility] 04-02-2022 08:48-0400 Body weight 124.06 kg Carlos Masci DO Work Phone: [facility] 04-02-2022 08:48-0400 Diastolic blood pressure 79 mm[Hg] Carlos Masci DO Work Phone: [facility] 04-02-2022 08:48-0400 Heart rate 72 /min Carlos Masci DO Work Phone: [facility] 04-02-2022 08:48-0400 SaO2% (BldA) [Mass fraction] 98 % Carlos Masci DO Work Phone: [facility] 04-02-2022 08:48-0400 Systolic blood pressure 146 mm[Hg] Carlos Masci DO Work Phone: [facility] 03-18-2022 13:57-0400 Body height 182.9 cm Carlos Masci DO Work Phone: [facility] 03-18-2022 13:57-0400 Body temperature 98.29 [degF] Carlos Storey DO Work Phone: [facility] 03-18-2022 13:57-0400 Body weight 123.83 kg Carlos Storey DO Work Phone: [facility] 03-18-2022 13:57-0400 Diastolic blood pressure 72 mm[Hg] Carlos Storey DO Work Phone: [facility] 03-18-2022 13:57-0400 Heart rate 69 /min Carlos Baezi DO Work Phone: [facility] 03-18-2022 13:57-0400 Systolic blood pressure 160 mm[Hg] Carlos Storey DO Work Phone: [facility] Encounters Encounter Date Encounter Type Care Provider Facility Start: 11-06-2023 End: 11-07-2023 ambulatory CARLOS STOREY Facility:[facility] Start: 11-04-2023 End: 11-04-2023 ambulatory SILVERIO SANCHEZ Facility:[facility] Start: 02-14-2023 Telephone encounter Carlos vasquez DO Work Phone: Hematology/Oncology Procedures Date Procedure Procedure Detail Performing Clinician Start: 03-31-2022 Adult depression scr eening assessment Carlos Storey DO Work Phone: Start: 03-18-2022 Radiologic examinati on osseous survey compl Carlos Joel Baezsanjuana DO Work Phone: Start: 08-13-2017 Adult depression scr eening assessment Carlos Storey DO Work Phone: Plan of Treatment Date Care Activity Detail Author Start: 10-31-2025 DIABETES SCREEN DIABETES SCREEN [facility] Start: 03-18-2025 DIABETES SCREEN DIABETES SCREEN [facility] Start: 12-23-2023 BP CONTROLLED (<130/80) BP CON TROLLED (<130/80) [facility] Start: 11-07-2023 BP CONTROLLED (<130/80) BP CON TROLLED (<130/80) [facility] Start: 07-24-2023 Influenza vaccination INFLUENZA (#1) [facility] Start: 03-31-2023 Adult depression screening assessment DEPRESSION SCREENING [facility] Start: 01-15-2023 End: 03-17-2023 CRYOGLOBULIN, QUAL, REFLEX TO ELDER AND Joel MACK M [facility] Work Phone: Payers Date Payer Category Payer Unknown [id number] 2023 Medicare [id number] 2022 Private Health Insurance [facility] [employer] [id number] 2022-Present [phone] [address] [place] [address] HMO [id number] 2021 Private Health Insurance xxx [id number] 2021 Unknown [id number] Social History Date Type Detail Facility Start: 06-26-2017 End: 11-07-2022 Tobacco smoking status NHIS Never smoked tobacco [facility] Start: 08-13-2017 End: 05-02-2022 Alcohol intake Current drinker of alcohol (finding) [facility] Start: 06-26-2017 History SDOH Alcohol Comment social drinker [facility] Start: 1960 Sex Assigned At Not on file [facility] Start: 06-26-2017 End: 11-07-2022 Tobacco use and exposure Smokeless tobacco non-user [facility] Start: 03-08-2022 End: 04-17-2022 Exposure to SARS-CoV-2 (event) Not sure [facility] Start: 11-07-2022 End: 12-23-2022 Alcohol intake Ex-drinker (finding) [facility] Start: 11-07-2022 End: 12-23-2022 History of Social function [facility] Start: 11-07-2022 End: 12-23-2022 Tobacco use panel [facility] Adult Depression Scr eening Assessment 0 [facility] Clinical Notes 03-04-2022 to 11-06-2023 Telephone Encounter - Isatu Mariano LPN - 01/13/2023 12:02 PM ESTTelephone Encounter - Carlos Storey, DO - 01/13/2023 7:54 AM Hardeep Peters APRN.ESTEFANY, PhD - 01/05/2023 3:27 PM EST Note Date & Type Note Facility 11-06-2023 Note HNO ID: [id number] Author: Carlos Storey DO Service: ? Author Type: Physician Type: Progress Notes Filed: 11/06/2023 9:40 AM Note Text: Oncologic problem(s): 1) IgG kappa monoclonal gammopathy. 2) IgM lambda monoclonal gammopathy. 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 4) Low level complement fixing AIHA. HPI: The patient is a 63-year-old male with a PMH significant for HTN, DM2, PVD (b/l carotid artery stenosis with thrombus vs mobile plaque; on ASA and Plavix), hyperlipidemia, bipolar 1 disorder, BPH (TURP), seizures and mixed motor/sensory neuropathy. Starting about a 1 to 1 1/2 years prior to presentation here, noticed numbness of the toes b/l, a little worse on the left. This had progressed to the soles of the feet. Then just prior to initial work up here, burning sensation distal LEs. He had an EMG performed on 01/15/2022 at [facility]. The study was an abnormal test of the lower limbs and demonstrated electrodiagnostic findings suggestive of peripheral polyneuropathy, sensory greater than motor, etiology unknown. There was no electrodiagnostic evidence for lumbosacral radiculopathy. He had lab work to work-up the neuropathy on 02/12/2022.. Vitamin B6 level was normal. DEVENDRA was negative. A urine protein electrophoresis revealed 2 peaks in the beta and gamma areas. The first M spike totaled 0.4 g/dL and the second M spike was quantified at 0.2 g/dL. Hemoglobin A1c was 6.5%. TSH normal at 1.74. Vitamin B12 418 chemistry panel remarkable for a normal serum creatinine of 0.98 mg/dL. The total protein was 7.3 g/dL with an albumin of 3.9 g/dL and a globulin level of 3.4 g/dL. The albumin to globulin ratio was normal at 1.1. Total calcium was 9.2 mg/dL. Had a sensation on lateral dorsum of the hands and posterior forearms like a sunburn that lasted about 20 min then faded away. This occured several times a day and had been doing so for about a week. Soles of feet can be painful when walking. Very slight imbalance when walking on occasion. 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 He is not short of breath at rest or with exertion. He was admitted to [facility] in July 2020 for an episode of chest pain. NH was ruled out. He underwent a stress test which did not demonstrate any evidence of ischemia. An echocardiogram 08/22/2020 demonstrated normal LV size and function with an estimated ejection fraction of 60%. Stage II diastolic dysfunction was observed. Most recent carotid duplex ultrasound demonstrated an irregular plaque at the proximal right internal carotid artery with less than 50% stenosis. There was less than 50% stenosis of the right external carotid artery. Within the right carotid bulb there was a small 0.25 x 0.25 cm area suggesting a small mobile mass that was seen previously on duplex ultrasounds 10/23/2020 and 08/08/2020. Smooth plaque was noted at the proximal left internal carotid artery with less than 50% stenosis and less than 50% stenosis of the left external carotid artery was observed as well. Both vertebral arteries were patent with antegrade flow bilaterally. He had an MRI of the cervical and lumbar spine done without contrast. Pronounced stenosis of the C5-C6 intervertebral foraminal foraminal due to osteophytes arising from the uncovertebral joints was observed. There was pronounced stenosis of the left C6-C7 intervertebral neural foramen due to prominent osteophyte arising from the left uncovertebral joint. On lumbar imaging is found to have moderate canal stenosis at L4-L5 to space level with an AP canal diameter of 7.6 mm secondary to prominent dorsal epidural lipomatosis, developmentally short pedicles and posterior bulging annulus. Moderate stenosis of the bilateral L5-S1 intervertebral neuroforamina. Had left knee replacement 10/2021. Had right CEA by Dr. Gilbert 12/09/2022. On Plavix and ASA. Operative report reviewed in [facility] system. Was noted to have tremor by his neurologist--elevated ammonia level--started on Lactulose. Stopped drinking altogether in 08/2022. Hasn't had alcohol since. Has lost ~30 lbs since April by quitting drinking and cutting calories. I feel much better. Presents for ongoing oncologic management. Interim history: Saw neurologist at [facility]. Received 4 injections total--2 cervical and 2 lumbar. On medical marijuana. No alcohol. Home blood glucose 150-160s. Occasional numbness in fingertips--comes and goes--stable. Sensory neuropathy LEs stable--numb and burning from mid calf to toes--stable. Not on any symptomatic medication. Balance is normal. PMH, medications and allergies personally reviewed by me today. Any changes documented in appropriate section. ROS: Constitutional: Denies episodes of fever and night sweats. Not significantly fatigued. Normal appetite. Neuro: Denies JIMÉNEZ. HEENT: No recent change in voice, vision or (more content not included)... [facility] 11-04-2023 Note HNO ID: [id number] Author: Vj Murphy RT(R) Service: ? Author Type: Technologist Type: Progress Notes Filed: 11/04/2023 8:27 AM Note Text: Radiology Service Progress Note PATIENT NAME: Raghu Huitron DATE OF SERVICE: November 04, 2023 TIME: 7:52 AM PATIENT IDENTITY VERIFICATION COMPLETED USING TWO (2) IDENTIFIERS: Name and Date of confirmed by patient verbally. FALL SCREENING: Has the patient had 2 falls in the last year or 1 fall with injury or currently using an Ambulatory Assistive Device (Walker, Cane, Wheelchair, Crutches, etc.)? No PATIENT GENDER DATA: Female. status: : No status: NO. PATIENT RELEVANT IMPLANT DATA REVIEWED: Not Applicable RADIOLOGY DEPARTMENT: General X-ray: Exam(s) Completed: Bone Survey PERIPHERAL IV DATA: Not applicable SIGNED BY: Vj Murphy RT(R) November 04, 2023 7:52 AM [facility] 01-13-2023 Miscellaneous Notes Pt. Contacted informed his case was presented to colleagues at [facility] who recommended IDr. Masci check a few other labs to be absolutely certain that the blood condition he has has no relationship to his neuropathy. Pt. Instructed he needs to go to [facility] to have these labs done as we do not do them here in [place]. Given lab hours in [place]. Pt. Voiced understanding. Isatu Mariano LPN Please let him know that his case was presented to colleagues at [facility] who recommended I check a few other labs to be absolutely certain that the blood condition he has has no relationship to his neuropathy. Orders filed. Carlos Storey DO documented in this encounter [facility] 01-05-2023 Note HNO ID: [id number] Author: Ghislaine Peters APRN.ESTEFANY, PhD Service: ? Author Type: Nurse Practitioner Type: Progress Notes Filed: 01/05/2023 3:38 PM Note Text: Date of Tumor Board this case is being submitted for: January 05, 2023 Presenting Facility: Team Staff Name (first and last) Patient of Dr Storey / [place] Patient Information [id number] Raghu Han Kevin 62 year old Diagnosis MGUS/ CANOMAD? Diagnosis comments Chart reviewed. Very low M protein but + cold agglutin and apparently neurologic sxs Cancer Staging No matching staging information was found for the patient. Type of Review: initial Pathology Review Needed: No - marrow from 2021 reviewed - no clonal disorder identified. Outcome: Raghu Huitron pathology was reviewed by the providers in attendance. Based on the current evidence of practice, the collaborative recommendation would be to check cryoglobulins and update cold agglutin to rule out CANOMAD You may be well aware of this condition, but here is most updated paper: (Tracee Anderson, et a.. CANOMAD: a neurological monoclonal gammopathy of clinical significance that benefits from G-gpfa-zhtubkxz therapies. Blood. 2019Oct 11;136(21):2420-0950. doi: 10.1182/blood.3500164717. PMID: 94215997.) https://pubmed.ncbi.nlm.nih.gov/32 885740/ These recommendations will be communicated by the presenting physicians. Radiology No Care Path Discussion:NA Clinical Trial Discussion:- not currently a candidate Conclusions: Case reviewed by [facility] Tumor Board. [facility] 01-05-2023 History of Present illness Narrative Date of Tumor Board this case is being submitted for: January 05, 2023 Presenting Facility: Team Staff Name (first and last) Patient of Dr Sotrey / [place] Patient Information [id number] Raghu Huitron 62 year old Diagnosis MGUS/ CANOMAD? Diagnosis comments Chart reviewed. Very low M protein but + cold agglutin and apparently neurologic sxs Cancer Staging No matching staging information was found for the patient. Type of Review: initial Pathology Review Needed: No - marrow from 2021 reviewed - no clonal disorder identified. Outcome: Raghu Huitron pathology was reviewed by the providers in attendance. Based on the current evidence of practice, the collaborative recommendation would be to check cryoglobulins and update cold agglutin to rule out CANOMAD You may be well aware of this condition, but here is most updated paper: (Tracee Anderson, et a.. CANOMAD: a neurological monoclonal gammopathy of clinical significance that benefits from X-lsfh-wcehqpat therapies. Blood. 2019Oct 11;136(21):0520-5987. doi: 10.1182/blood.[id number]. PMID: 25715845.) https://pubmed.ncbi.nlm.nih.gov/32 856036/ These recommendations will be communicated by the presenting physicians. Radiology No Care Path Discussion:NA Clinical Trial Discussion:- not currently a candidate Conclusions: Case reviewed by [facility] Tumor Board. documented in this encounter [facility] 12-23-2022 Note HNO ID: [id number] Author: Carlos Storey, DO Service: ? Author Type: Physician Type: Progress Notes Filed: 12/28/2022 8:56 AM Note Text: Oncologic problem(s): 1) IgG kappa monoclonal gammopathy. 2) IgM lambda monoclonal gammopathy. 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 4) Low level complement fixing AIHA. HPI: The patient is a 62-year-old male with a PMH significant for HTN, DM2, PVD (b/l carotid artery stenosis with thrombus vs mobile plaque; on ASA and Plavix), hyperlipidemia, bipolar 1 disorder, BPH (TURP), seizures and mixed motor/sensory neuropathy. Starting about a 1 to 1 1/2 years prior to presentation here, noticed numbness of the toes b/l, a little worse on the left. This had progressed to the soles of the feet. Then just prior to initial work up here, burning sensation distal LEs. He had an EMG performed on 01/15/2022 at [facility]. The study was an abnormal test of the lower limbs and demonstrated electrodiagnostic findings suggestive of peripheral polyneuropathy, sensory greater than motor, etiology unknown. There was no electrodiagnostic evidence for lumbosacral radiculopathy. He had lab work to work-up the neuropathy on 02/12/2022.. Vitamin B6 level was normal. DEVENDRA was negative. A urine protein electrophoresis revealed 2 peaks in the beta and gamma areas. The first M spike totaled 0.4 g/dL and the second M spike was quantified at 0.2 g/dL. Hemoglobin A1c was 6.5%. TSH normal at 1.74. Vitamin B12 418 chemistry panel remarkable for a normal serum creatinine of 0.98 mg/dL. The total protein was 7.3 g/dL with an albumin of 3.9 g/dL and a globulin level of 3.4 g/dL. The albumin to globulin ratio was normal at 1.1. Total calcium was 9.2 mg/dL. Had a sensation on lateral dorsum of the hands and posterior forearms like a sunburn that lasted about 20 min then faded away. This occured several times a day and had been doing so for about a week. Soles of feet can be painful when walking. Very slight imbalance when walking on occasion. 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 He is not short of breath at rest or with exertion. He was admitted to [facility] in July 2020 for an episode of chest pain. NH was ruled out. He underwent a stress test which did not demonstrate any evidence of ischemia. An echocardiogram 08/22/2020 demonstrated normal LV size and function with an estimated ejection fraction of 60%. Stage II diastolic dysfunction was observed. Most recent carotid duplex ultrasound demonstrated an irregular plaque at the proximal right internal carotid artery with less than 50% stenosis. There was less than 50% stenosis of the right external carotid artery. Within the right carotid bulb there was a small 0.25 x 0.25 cm area suggesting a small mobile mass that was seen previously on duplex ultrasounds 10/23/2020 and 08/08/2020. Smooth plaque was noted at the proximal left internal carotid artery with less than 50% stenosis and less than 50% stenosis of the left external carotid artery was observed as well. Both vertebral arteries were patent with antegrade flow bilaterally. He had an MRI of the cervical and lumbar spine done without contrast. Pronounced stenosis of the C5-C6 intervertebral foraminal foraminal due to osteophytes arising from the uncovertebral joints was observed. There was pronounced stenosis of the left C6-C7 intervertebral neural foramen due to prominent osteophyte arising from the left uncovertebral joint. On lumbar imaging is found to have moderate canal stenosis at L4-L5 to space level with an AP canal diameter of 7.6 mm secondary to prominent dorsal epidural lipomatosis, developmentally short pedicles and posterior bulging annulus. Moderate stenosis of the bilateral L5-S1 intervertebral neuroforamina. Had left knee replacement 10/2021. Presents for ongoing oncologic management. Interim history: Had right CEA by Dr. Gilbert 12/09/2022. On Plavix and ASA. Operative report reviewed in [facility] system. Was noted to have tremor by his neurologist--elevated ammonia level--started on Lactulose. Stopped drinking altogether in 08/2022. Hasn't had alcohol since. Has lost ~30 lbs since April by quitting drinking and cutting calories. I feel much better. Occasional numbness in fingertips--comes and goes--stable. Sensory neuropathy LEs unchanged--numb and burning from mid calf to toes--stable. Not on any symptomatic medication. Balance is normal. Occasional orthostasis. PMH, medications and allergies personally reviewed by me today. Any changes documented in appropriate section. ROS: Constitutional: Denies episodes of fever and night sweats. Not significantly fatigued. Normal appetite. Neuro: Denies JIMÉNEZ. HEENT: No recent change in voice, vision or hearing. Resp: Denies cough, wheeze and hemoptysis. Denies shortness of breath at rest. Denies RUIZ. CVS: Denies exertion (more content not included)... [facility] 12-23-2022 History of Present illness Narrative Oncologic problem(s): 1) IgG kappa monoclonal gammopathy. 2) IgM lambda monoclonal gammopathy. 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 4) Low level complement fixing AIHA. HPI: The patient is a 62-year-old male with a PMH significant for HTN, DM2, PVD (b/l carotid artery stenosis with thrombus vs mobile plaque; on ASA and Plavix), hyperlipidemia, bipolar 1 disorder, BPH (TURP), seizures and mixed motor/sensory neuropathy. Starting about a 1 to 1 1/2 years prior to presentation here, noticed numbness of the toes b/l, a little worse on the left. This had progressed to the soles of the feet. Then just prior to initial work up here, burning sensation distal LEs. He had an EMG performed on 01/15/2022 at [facility]. The study was an abnormal test of the lower limbs and demonstrated electrodiagnostic findings suggestive of peripheral polyneuropathy, sensory greater than motor, etiology unknown. There was no electrodiagnostic evidence for lumbosacral radiculopathy. He had lab work to work-up the neuropathy on 02/12/2022.. Vitamin B6 level was normal. DEVENDRA was negative. A urine protein electrophoresis revealed 2 peaks in the beta and gamma areas. The first M spike totaled 0.4 g/dL and the second M spike was quantified at 0.2 g/dL. Hemoglobin A1c was 6.5%. TSH normal at 1.74. Vitamin B12 418 chemistry panel remarkable for a normal serum creatinine of 0.98 mg/dL. The total protein was 7.3 g/dL with an albumin of 3.9 g/dL and a globulin level of 3.4 g/dL. The albumin to globulin ratio was normal at 1.1. Total calcium was 9.2 mg/dL. Had a sensation on lateral dorsum of the hands and posterior forearms like a sunburn that lasted about 20 min then faded away. This occured several times a day and had been doing so for about a week. Soles of feet can be painful when walking. Very slight imbalance when walking on occasion. 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 He is not short of breath at rest or with exertion. He was admitted to [facility] in July 2020 for an episode of chest pain. NH was ruled out. He underwent a stress test which did not demonstrate any evidence of ischemia. An echocardiogram 08/22/2020 demonstrated normal LV size and function with an estimated ejection fraction of 60%. Stage II diastolic dysfunction was observed. Most recent carotid duplex ultrasound demonstrated an irregular plaque at the proximal right internal carotid artery with less than 50% stenosis. There was less than 50% stenosis of the right external carotid artery. Within the right carotid bulb there was a small 0.25 x 0.25 cm area suggesting a small mobile mass that was seen previously on duplex ultrasounds 10/23/2020 and 08/08/2020. Smooth plaque was noted at the proximal left internal carotid artery with less than 50% stenosis and less than 50% stenosis of the left external carotid artery was observed as well. Both vertebral arteries were patent with antegrade flow bilaterally. He had an MRI of the cervical and lumbar spine done without contrast. Pronounced stenosis of the C5-C6 intervertebral foraminal foraminal due to osteophytes arising from the uncovertebral joints was observed. There was pronounced stenosis of the left C6-C7 intervertebral neural foramen due to prominent osteophyte arising from the left uncovertebral joint. On lumbar imaging is found to have moderate canal stenosis at L4-L5 to space level with an AP canal diameter of 7.6 mm secondary to prominent dorsal epidural lipomatosis, developmentally short pedicles and posterior bulging annulus. Moderate stenosis of the bilateral L5-S1 intervertebral neuroforamina. Had left knee replacement 10/2021. Presents for ongoing oncologic management. Interim history: Had right CEA by Dr. Gilbert 12/09/2022. On Plavix and ASA. Operative report reviewed in [facility] system. Was noted to have tremor by his neurologist--elevated ammonia level--started on Lactulose. Stopped drinking altogether in 08/2022. Hasn't had alcohol since. Has lost ~30 lbs since April by quitting drinking and cutting calories. I feel much better. Occasional numbness in fingertips--comes and goes--stable. Sensory neuropathy LEs unchanged--numb and burning from mid calf to toes--stable. Not on any symptomatic medication. Balance is normal. Occasional orthostasis. PMH, medications and allergies personally reviewed by me today. Any changes documented in appropriate section. ROS: Constitutional: Denies episodes of fever and night sweats. Not significantly fatigued. Normal appetite. Neuro: Denies JIMÉNEZ. HEENT: No recent change in voice, vision or hearing. Resp: Denies cough, wheeze and hemoptysis. Denies shortness of breath at rest. Denies RUIZ. CVS: Denies exertional chest pain, PND, orthopnea and LE edema. GI: Denies dysgeusia. Denies symptoms of stomatitis. Denies dysphagia and odynophagia. Denies reflux, n/v, change in bowel habits and abdominal pain. : Denies dysuria or gross hematuria. No symptoms of bladder outlet obstruction. Endo: Denies hot flashes. Denies polyuria and polydipsia. Denies heat and cold intolerance. Musculoskeletal: Chronic low back pain--same. Derm: Denies rash. Denies jaundice and diffuse pruritis. Heme: Denies unusual bleeding and unexplained bruising. Psych: See above. Social history: Lifelong non-smoker. Averages about 6 cans of beer a week--non since 08/2022. No history of drug use. and lives with his Kristyn in [place]. Family history: He has a brother who had prostate cancer. PHYSICAL EXAM: Vitals: Blood pressure 111/66, pulse (!) 51, temperature 36.2 C (97.2 F), temperature source Temporal, weight 114.3 kg (252 lb). Well-appearing and in no acute distress. EYES: Sclerae are anicteric bilaterally. ENT: Oral mucosa is unremarkable. There is no sign of thrush or mucositis. NECK: Supple. No enlargement of thyroid. LYMPHATIC: There is no palpable cervical, supraclavicular, axillary or inguinal adenopathy. RESPIRATORY: Inspiratory breath sounds are of normal intensity in all harris. No rales, wheezes or rhonchi. Expiratory phase is normal. CARDIOVASCULAR: Rhythm is regular. Normal intensity S1/S2. There is no gallop or murmur. ABDOMEN: The abdomen is nondistended. No organomegaly. No tenderness. Extremities: No swelling or edema. SKIN: No jaundice or rash. No petechiae. NEUROLOGIC: applications sales consultant II-XII are grossly intact. No focal motor weakness. DTRs are symmetric and normal. MUSCULOSKELETAL: No joint swelling or tenderness. No muscle wasting. LABS: Component Latest Ref Rng & Units 10/31/2022 11/07/2022 WBC 3.70 - 11.00 k/uL 12.37 (H) 14.77 (H) RBC 4.20 - 6.00 m/uL 4.19 (L) 4.59 Hemoglobin 13.0 - 17.0 g/dL 12.7 (L) 13.6 Hematocrit 39.0 - 51.0 % 36.4 (L) 40.0 MCV 80.0 - 100.0 fL 86.9 87.1 MCH 26.0 - 34.0 pg 30.3 29.6 MCHC 30.5 - 36.0 g/dL 34.9 34.0 RDW-CV 11.5 - 15.0 % 13.0 13.2 Platelet Count 150 - 400 k/uL 253 304 MPV 9.0 - 12.7 fL 9.6 9.3 Neut% % 62.9 68.1 Abs Neut (ANC) 1.45 - 7.50 k/uL 7.78 (H) 10.06 (H) Lymph% % 24.7 20.7 Abs Lymph 1.00 - 4.00 k/uL 3.06 3.06 Newberry% % 8.1 7.4 Abs Newberry <0.87 k/uL 1.00 (H) 1.09 (H) Eosin% % 3.0 2.2 Abs Eosin <0.46 k/uL 0.37 0.32 Baso% % 0.9 1.0 Abs Baso <0.11 k/uL 0.11 (H) 0.15 (H) Immature Gran % % 0.4 0.6 IMMATURE GRANS (ABS) <0.10 k/uL 0.05 0.09 NRBC /100 WBC 0.0 0.0 Absolute nRBC <0.01 k/uL <0.01 <0.01 DTYPE Auto Auto DAGT, Polyspecific AHG POS (microscopic) DAGT, Anti-IgG Negative DAGT, Anti-C3b,C3d POS (microscopic) Type+Scr Expiration 11/07/2022 18:48 Iron 41 - 186 ug/dL 65 TIBC 232 - 386 ug/dL 305 Transferrin Saturation 15.0 - 57.0 % 21.3 Retic % 0.4 - 2.0 % 2.6 (H) Abs Retic 0.018 - 0.100 M/uL 0.121 (H) Vitamin B12 232 - 1,245 pg/mL 539 Copper 70 - 140 ug/dL 89 TSH 0.270 - 4.200 mIU/L 3.550 Ferritin 30.3 - 565.7 ng/mL 210.0 GGT 10 - 70 U/L 32 LD 135 - 225 U/L 172 Haptoglobin 31 - 238 mg/dL 218 RBC Folate >=366 ng/mL 1210 Protein, Total 6.3 - 8.0 g/dL 6.3 6.8 6.5 Albumin 3.9 - 4.9 g/dL 4.1 4.3 4.1 Calcium 8.5 - 10.2 mg/dL 9.2 9.1 8.5 Bilirubin, Total 0.2 - 1.3 mg/dL 0.3 0.4 0.3 Alkaline Phosphatase 38 - 113 U/L 37 76 62 AST 14 - 40 U/L 34 25 16 Glucose 74 - 99 mg/dL 104 (H) 195 (H) 168 (H) BUN 9 - 24 mg/dL 15 13 11 Creatinine 0.73 - 1.22 mg/dL 0.97 0.76 0.83 Sodium 136 - 144 mmol/L 140 135 (L) 139 Potassium 3.7 - 5.1 mmol/L 4.5 3.0 (L) 3.6 (L) Chloride 97 - 105 mmol/L 101 98 102 CO2 22 - 30 mmol/L 22 26 27 Anion Gap 9 - 18 mmol/L 17 11 10 ALT 10 - 54 U/L 36 31 20 eGFR- >60 eGFR-All Other Races . >60 eGFR >=60 mL/min/1.73m 101 98 Component Latest Ref Rng & Units 03/18/2022 10/31/2022 B2 Microglobulin <3.1 mg/L 1.5 2.1 Component Latest Ref Rng & Units 03/18/2022 10/31/2022 Albumin 3.43 - 5.41 g/dL 4.12 3.97 Alpha 1 Globulin 0.18 - 0.43 g/dL 0.24 0.29 Alpha 2 Globulin 0.42 - 0.98 g/dL 0.80 0.66 Beta Globulin 0.61 - 1.17 g/dL 0.98 0.66 Gamma Globulin 0.53 - 1.51 g/dL 0.77 0.73 Interpretation (Prot Electro) No definitive M protein is identified on protein electrophoresis. An M protein is identified on protein electrophoresis. (A) An M protein is identified on protein electrophoresis. (A) Interpretation Comment for Protein Electrophoresis See separate immunofixation report for characterization of monoclonal gammopathy. See separate immunofixation report for characterization of monoclonal gammopathy. M-Protein Location Gamma Fraction 1 Gamma Fraction 1 M-Protein Location 2 Gamma Fraction 2 Gamma Fraction 2 M-Protein Concentration <=0.00 g/dL 0.19 (H) 0.23 (H) SPE Staff Review Reviewed by Azucena Resendiz MD Reviewed by David York MD, Ph.D ([id number]) M-Protein Concentration 2 <=0.00 g/dL 0.10 (H) 0.20 (H) Component Latest Ref Rng & Units 03/18/2022 10/31/2022 IgG 700 - 1,600 mg/dL 655 (L) 788 IgA 70 - 400 mg/dL 96 90 IgM 40 - 230 mg/dL 197 197 [place] Free, Serum 3.3 - 19.4 mg/L 12.7 22.5 (H) Lambda Free, Serum 5.7 - 26.3 mg/L 9.4 11.2 K/L Ratio, Serum 0.26 - 1.65 1.35 2.01 (H) Possible kappa light chain in spot urine sample detected only by immunofixation. Component Latest Ref Rng & Units 12/17/2022 Asialo-GM1 Antibodies 0 - 50 IV 54 (H) GM1 Antibodies 0 - 50 IV 8 GM2 Antibodies 0 - 50 IV 10 GD1a Antibodies 0 - 50 IV See Note GD1b Antibodies 0 - 50 IV 14 GQ1b Antibodies 0 - 50 IV 5 IMAGING: Bone survey 03/18/2022: Unremarkable bone survey. No evidence of bony destructive process or pathologic lesion. Whole-body bone CT 04/11/2022: RESULT: Please note that this low dose non-contrast examination with free breathing technique is limited for detection of some intrathoracic, solid abdominal organ, and vascular pathologies. Additionally, study is insensitive for detection of diffuse pattern of myelomatous marrow infiltration. OSSEOUS STRUCTURES: Calvarium: There is no well circumscribed lytic lesion measuring 5 mm or greater. Spine: There is no well circumscribed lytic lesion measuring 5 mm or greater. Vertebral body heights are preserved. There are degenerative changes . Upper extremities: There is no well circumscribed lytic lesion measuring 5 mm or greater. There are no suspicious findings noted in the intramedullary cavities. Ribs/Sternum: There is no well circumscribed lytic lesion measuring 5 mm or greater. Bony pelvis: : There is no well circumscribed lytic lesion measuring 5 mm or greater. Lower extremities: There is no well circumscribed lytic lesion measuring 5 mm or greater. There are no suspicious findings noted in the intramedullary cavities. NON-OSSEOUS STRUCTURES Soft tissues: No soft tissue mass. Head/neck: Limited low dose evaluation of intra-cranial structures show No acute intracranial process.. No pathologically enlarged cervical adenopathy. CHEST: Lines, tubes, and devices: None. Thoracic inlet, heart, and mediastinum: No lymphadenopathy in the axillary, mediastinal, or hilar regions within limitations of non-contrast exam. Heart size is normal. No pericardial effusion. Lung parenchyma and pleura: No consolidation. No suspicious pulmonary nodule is noted within limitations of reduced dose and free breathing technique. No pleural effusion. Central airways are patent. ABDOMEN/PELVIS: The unenhanced appearance of the liver, spleen, adrenal glands, and pancreas are unremarkable. No hydroureteronephrosis. No dilated bowel. No lymphadenopathy by size criteria. Scattered atherosclerotic calcifications without aneurysmal dilatation. Unremarkable unenhanced appearance of pelvic organs and urinary bladder IMPRESSION: No suspicious bony lesion is identified. PATHOLOGY: Bone marrow biopsy 04/17/2022: A, B, and C. Bone marrow, right, aspirate, core biopsy, and clot section: - Normocellular bone marrow with trilineage hematopoiesis - Normal myeloid to erythroid ratio - Adequate megakaryocytes with normal morphology - Decreased iron stores with no ring sideroblasts - Small lymphoid aggregates, favored benign - See comment D. Peripheral blood, smear: - Unremarkable This 61-year-old gentleman presented with a recent diagnosis of polyneuropathy. Subsequent serum protein electrophoresis identified a biclonal gammopathy containing both IgG kappa as well as IgM lambda components. Flow cytometry, performed on this bone marrow sample, did not identify a discrete plasma cell population. Immunohistochemistry, performed on the core biopsy, identified polytypic plasma cells and small lymphoid aggregates that are favored to be benign. The precise etiology of the patient's biclonal gammopathy is uncertain. The bone marrow contains an admixture of kappa and lambda plasma cells. However, the protein electrophoresis identified both kappa and lambda M-proteins. It is uncertain if the plasma cells seen are polytypic versus two discrete abnormal plasma populations with different light chain staining. The plasma cells are neither appreciably increased nor form sizable or abnormal clusters/aggregates. The findings may represent a monoclonal gammopathy of undetermined significance. A plasmacytoma cannot be excluded by this study. A biclonal Bcell lymphoproliferative disorder, without bone marrow involvement, cannot be excluded. Correlation with the clinical, radiographic, and laboratory findings is recommended. Final Impression: There is no immunophenotypic evidence of involvement by a plasma cell neoplasm. Correlation with the clinical, laboratory, radiologic, and bone marrow histopathologic findings is suggested. 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 Evidence of polyneuropathy, sensory greater than motor on EMG testing 12/2021. A serum protein electrophoresis revealed low level biclonal M protein. -Low level IgG kappa monoclonal protein and low level IgM lambda monoclonal protein. No detectable monoclonal protein in the urine via 24-hour urine collection. The serum kappa and lambda light chain assay revealed normal levels with normal ratio. Bone survey showed no concerning lesions. No hypercalcemia, anemia or renal dysfunction. -Bone marrow biopsy--no abnormal/clonal PCs by histology or flow. Normal cytogenetics. Negative for amyloid on Congo red staining. -On lithium--most recent level was slightly elevated at 1.3 mmol/L (0.6-1.2 mmol/L) 09/22/2022. -Most recent hemoglobin A1c 6.4% on 11/03/2022 (highest was 6.8% 07/2022) -Antimyelin antibodies negative. -Ganglioside antibody, asialo-GM1 to body low positive. -Whole-body bone CT scan. No adenopathy or lytic lesion identified. 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 -He has had a small incremental increase in serum monoclonal proteins with no other concerning findings. -Sensory neuropathy symptoms are stable at this point. Likely combination of diabetic neuropathy with prior heavy alcohol use. Not clearly related to his monoclonal gammopathy, but since has low level asialo-GM1 antigangloside antibody will need further input from [facility] tumor board and his neurologist. -He is feeling better since quitting drinking and losing weight. Plan: -Will see if can present at [facility] tumor board. 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 -Further work-up of anemia significant only for low level complement fixing autoantibody. -Anemia resolved. -Small increase in reticulocytes could be from recovering anemia or indicate low-level hemolysis. Serum LDH and haptoglobin are normal however. -Could be transient from the bronchitis (if M. pneumoniae) or true cold agglutinin disease favoring the latter given IgM monoclonal gammopathy. Plan: -No specific intervention required at this time. -Recheck CBC/hemolysis labs/Mycoplasma serology in about 6-8 weeks. Portions of this documentation were copied and pasted from previous office visit notes in order to provide a cohesive continuity of the history. The note has been reviewed and edited and updated as necessary. During this patient visit I have spent approximately 25 minutes out of 40 in counseling regarding test results and coordinating care. Carlos Storey DO documented in this encounter [facility] 12-22-2022 Miscellaneous Notes Spoke with pt and scheduled as directed Pt notified and voices understanding. PSS please reach out to assist pt in scheduling. Gayathri John LPN Can let him know that the latest testing showed a small increase in antibodies that may be associated with his neuropathy. Please schedule established complex visit with me when schedule permits. Carlos Storey DO documented in this encounter [facility] 12-15-2022 Miscellaneous Notes Patient is aware and will have labs done sometime this week. Jessica Oliva LPN Medications will not interfere. Carlos Storey DO Pt. Had a Carotid Endarterectomy last Thursday, completed his Percocet yesterday. Wanted to make sure all the medications from his surgery are not going to interfere with test. Had morphine, anesthesia, and percocet. If not will get test later this week. Isatu Mariano LPN Patient called stating he was recently in [facility] and stated he had labs drawn there. He is asking if they are the same labs and if not, patient states he is on pain medication and is asking if that would affect the labs ordered. Message left on voicemail to check his my chart concerning labs done in October. Isatu Mariano LPN Can let him know that the additional lab work that he had in October showed no cause for his mild anemia and the anemia had recovered on repeat CBC. I would like him to return for one more lab test in order to help determine whether or not there is a blood disorder causing his neuropathy. Carlos Storey DO documented in this encounter [facility] 05-02-2022 History of Present illness Narrative Oncologic problem(s): 1) IgG kappa monoclonal gammopathy. 1) IgM lambda monoclonal gammopathy. HPI: The patient is a 61-year-old male with a PMH significant for HTN, hyperglycemia, PVD (b/l carotid artery stenosis with thrombus vs mobile plaque; on ASA and Plavix), hyperlipidemia, bipolar 1 disorder, BPH (TURP), seizures and mixed neuropathy. Starting about a 1 to 1 1/2 years ago, noticed numbness of the toes b/l, a little worse on the left. This has progressed to the soles of the feet. More recently burning sensation distal LEs. He had an EMG performed on 01/15/2022 at [facility]. The study was an abnormal test of the lower limbs and demonstrated electrodiagnostic findings suggestive of peripheral polyneuropathy, sensory greater than motor etiology unknown. There was no electrodiagnostic evidence for lumbosacral radiculopathy. He evidently had lab work to work-up the neuropathy on 02/12/2022.. Vitamin B6 level was normal. DEVENDRA was negative. A urine protein electrophoresis revealed 2 peaks in the beta and gamma areas. The first M spike totaled 0.4 g/dL and the second M spike was quantified at 0.2 g/dL. Hemoglobin A1c was 6.5%. TSH normal at 1.74. Vitamin B12 418 chemistry panel remarkable for a normal serum creatinine of 0.98 mg/dL. The total protein was 7.3 g/dL with an albumin of 3.9 g/dL and a globulin level of 3.4 g/dL. The albumin to globulin ratio was normal at 1.1. Total calcium was 9.2 mg/dL. Last night had a sensation on lateral dorsum of the hands and posterior forearms of a sunburn that lasted about 20 min then faded away. This occurs several times a day and has been doing so for about a week. Soles of feet can be painful when walking. Very slight imbalance when walking on occasion. 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 He is not short of breath at rest or with exertion. He was admitted to [facility] in July 2020 for an episode of chest pain. NH was ruled out. He underwent a stress test which did not demonstrate any evidence of ischemia. An echocardiogram 08/22/2020 demonstrated normal LV size and function with an estimated ejection fraction of 60%. Stage II diastolic dysfunction was observed. Most recent carotid duplex ultrasound demonstrated an irregular plaque at the proximal right internal carotid artery with less than 50% stenosis. There was less than 50% stenosis of the right external carotid artery. Within the right carotid bulb there was a small 0.25 x 0.25 cm area suggesting a small mobile mass that was seen previously on duplex ultrasounds 10/23/2020 and 08/08/2020. Smooth plaque was noted at the proximal left internal carotid artery with less than 50% stenosis and less than 50% stenosis of the left external carotid artery was observed as well. Both vertebral arteries were patent with antegrade flow bilaterally. Presents for ongoing oncologic management. Interim history: He has noticed minor progression of the neuropathy. Is now affecting the fingertips. Feet and legs the same. PMH, medications and allergies personally reviewed by me today. Any changes documented in appropriate section. ROS: Constitutional: Denies episodes of fever and night sweats. Not significantly fatigued. Normal appetite. Neuro: Denies JIMÉNEZ, vertigo, dizziness. HEENT: No recent change in voice, vision or hearing. Resp: Denies cough, wheeze and hemoptysis. Denies shortness of breath at rest. Denies RUIZ. CVS: Denies exertional chest pain, PND, orthopnea and LE edema. GI: Denies dysgeusia. Denies symptoms of stomatitis. Denies dysphagia and odynophagia. Denies reflux, n/v, change in bowel habits and abdominal pain. : Denies dysuria or gross hematuria. No symptoms of bladder outlet obstruction. Endo: Denies hot flashes. Denies polyuria and polydipsia. Denies heat and cold intolerance. Musculoskeletal: Denies bone, back, joint and muscular pain. Derm: Denies rash. Denies jaundice and diffuse pruritis. Heme: Denies unusual bleeding and unexplained bruising. Psych: Normal mood. Had left knee replacement 10/2021. Social history: Lifelong non-smoker. Averages about 6 cans of beer a week. No history of drug use. - and lives with his Kristyn in [place]. Family history: He has a brother who had prostate cancer. PHYSICAL EXAM: Vitals: Blood pressure 144/75, pulse 69, temperature 36.8 C (98.2 F), weight 124.7 kg (275 lb), SpO2 95 %. Well-appearing and in no acute distress. EYES: Sclerae are anicteric bilaterally. ENT: Oral mucosa is unremarkable. There is no sign of thrush or mucositis. NECK: Supple. No enlargement of thyroid. LYMPHATIC: There is no palpable cervical, supraclavicular, axillary or inguinal adenopathy. RESPIRATORY: Inspiratory breath sounds are of normal intensity in all harris. No rales, wheezes or rhonchi. Expiratory phase is normal. CARDIOVASCULAR: Rhythm is regular. Normal intensity S1/S2. There is no gallop or murmur. ABDOMEN: The abdomen is nondistended. No organomegaly. No tenderness. Extremities: No swelling or edema. SKIN: No jaundice or rash. No petechiae. NEUROLOGIC: applications sales consultant II-XII are grossly intact. No focal motor weakness. DTRs are symmetric and normal. MUSCULOSKELETAL: No joint swelling or tenderness. No muscle wasting. LABS: Component Latest Ref Rng & Units 03/18/2022 WBC 3.70 - 11.00 k/uL 12.86 (H) RBC 4.20 - 6.00 m/uL 4.65 Hemoglobin 13.0 - 17.0 g/dL 13.6 Hematocrit 39.0 - 51.0 % 39.2 MCV 80.0 - 100.0 fL 84.3 MCH 26.0 - 34.0 pg 29.2 MCHC 30.5 - 36.0 g/dL 34.7 RDW-CV 11.5 - 15.0 % 13.9 Platelet Count 150 - 400 k/uL 258 MPV 9.0 - 12.7 fL 9.3 Neut% % 65.1 Abs Neut (ANC) 1.45 - 7.50 k/uL 8.37 (H) Lymph% % 25.4 Abs Lymph 1.00 - 4.00 k/uL 3.27 Newberry% % 7.2 Abs Newberry <0.87 k/uL 0.93 (H) Eosin% % 0.7 Abs Eosin <0.46 k/uL 0.09 Baso% % 0.8 Abs Baso <0.11 k/uL 0.10 Immature Gran % % 0.8 IMMATURE GRANS (ABS) <0.10 k/uL 0.10 (H) NRBC /100 WBC 0.0 Absolute nRBC <0.01 k/uL <0.01 DTYPE Auto Protein, Total 6.3 - 8.0 g/dL 6.8 Albumin 3.9 - 4.9 g/dL 4.3 Calcium 8.5 - 10.2 mg/dL 9.1 Bilirubin, Total 0.2 - 1.3 mg/dL 0.4 Alkaline Phosphatase 38 - 113 U/L 76 AST 14 - 40 U/L 25 ALT 10 - 54 U/L 31 Glucose 74 - 99 mg/dL 195 (H) BUN 9 - 24 mg/dL 13 Creatinine 0.73 - 1.22 mg/dL 0.76 Sodium 136 - 144 mmol/L 135 (L) Potassium 3.7 - 5.1 mmol/L 3.0 (L) Chloride 97 - 105 mmol/L 98 CO2 22 - 30 mmol/L 26 Anion Gap 9 - 18 mmol/L 11 eGFR >=60 mL/min/1.73m 101 B2 Microglobulin <3.1 mg/L 1.5 Uric Acid 4.0 - 8.1 mg/dL 8.0 LD 135 - 225 U/L 252 (H) NT Pro BNP <125 pg/mL 75 Vitamin B12 232-1,245 pg/mL 450 MMA 79 - 376 nmol/L 280 Component Latest Ref Rng & Units 03/18/2022 Albumin 3.37 - 4.23 g/dL 4.12 Alpha 1 Globulin 0.18 - 0.31 g/dL 0.24 Alpha 2 Globulin 0.52 - 0.97 g/dL 0.80 Beta Globulin 0.84 - 1.36 g/dL 0.98 Gamma Globulin 0.70 - 1.44 g/dL 0.77 Interpretation (Prot Electro) No definitive M protein is identified on protein electrophoresis. An M protein is identified on protein electrophoresis. (A) Interpretation Comment for Protein Electrophoresis See separate immunofixation report for characterization of monoclonal gammopathy. M-Protein Location Gamma Fraction 1 M-Protein Location 2 Gamma Fraction 2 M-Protein Concentration <=0.00 g/dL 0.19 (H) SPE Staff Review Reviewed by Azucena Resendiz MD M-Protein Concentration 2 <=0.00 g/dL 0.10 (H) Component Latest Ref Rng & Units 03/18/2022 MPA Result No M protein is identified. M protein is present. (A) Interpretation (MPA) Two sets of atypical restricted bands are present in the specimen, one in the IgG and kappa lanes, and the other in the IgM and lambda lanes. Consistent with a biclonal gammopathy contain IgG kappa and IgM lambda components. Staff Review ([facility]) Reviewed by Josette Dao M.D., Ph.D [place] Free, Serum 3.3 - 19.4 mg/L 12.7 Lambda Free, Serum 5.7 - 26.3 mg/L 9.4 K/L Ratio, Serum 0.26 - 1.65 1.35 Component Latest Ref Rng & Units 03/20/2022 Protein, Timed Urine <0.16 gm/24 Hr 0.18 (H) Period hours 24 Urine Volume 24 hour mL 2,625 Result ([facility]) No M protein is identified. No M protein is identified. Staff Review ([facility]) Reviewed by Josette Dao M.D., Ph.D Component Latest Ref Rng & Units 03/20/2022 Albumin %, 24 Hr Urine % 38.30 Alpha 1 Globulin %, 24 Hr Ur % 5.59 Alpha 2 Globulin %, 24 Hr Ur % 15.80 Beta Globulin %, 24 Hr Ur % 25.78 Gamma Globulin %, 24 Hr Ur % 14.53 Interpretation (UEPG24) No definitive M protein is identified on protein electrophoresis. No definitive M protein is identified on protein electrophoresis. M Tee Quant, 24 Hr Urine g/24hr 0.00 Staff Review ([facility]) Reviewed by Josette Dao M.D., Ph.D Interpretation Comment for Protein Electrophoresis The absence of M-protein on urine protein electrophoresis does not entirely exclude the presence of monoclonal gammopathy in urine. Monoclonal protein analysis (immunofixation), a more definitive test to exclude monoclonal gammopathy, may be requested on this specimen if clinically indicated. IMAGING: Bone survey 03/18/2022: Unremarkable bone survey. No evidence of bony destructive process or pathologic lesion. Whole-body bone CT 04/11/2022: RESULT: Please note that this low dose non-contrast examination with free breathing technique is limited for detection of some intrathoracic, solid abdominal organ, and vascular pathologies. Additionally, study is insensitive for detection of diffuse pattern of myelomatous marrow infiltration. OSSEOUS STRUCTURES: Calvarium: There is no well circumscribed lytic lesion measuring 5 mm or greater. Spine: There is no well circumscribed lytic lesion measuring 5 mm or greater. Vertebral body heights are preserved. There are degenerative changes . Upper extremities: There is no well circumscribed lytic lesion measuring 5 mm or greater. There are no suspicious findings noted in the intramedullary cavities. Ribs/Sternum: There is no well circumscribed lytic lesion measuring 5 mm or greater. Bony pelvis: : There is no well circumscribed lytic lesion measuring 5 mm or greater. Lower extremities: There is no well circumscribed lytic lesion measuring 5 mm or greater. There are no suspicious findings noted in the intramedullary cavities. NON-OSSEOUS STRUCTURES Soft tissues: No soft tissue mass. Head/neck: Limited low dose evaluation of intra-cranial structures show No acute intracranial process.. No pathologically enlarged cervical adenopathy. CHEST: Lines, tubes, and devices: None. Thoracic inlet, heart, and mediastinum: No lymphadenopathy in the axillary, mediastinal, or hilar regions within limitations of non-contrast exam. Heart size is normal. No pericardial effusion. Lung parenchyma and pleura: No consolidation. No suspicious pulmonary nodule is noted within limitations of reduced dose and free breathing technique. No pleural effusion. Central airways are patent. ABDOMEN/PELVIS: The unenhanced appearance of the liver, spleen, adrenal glands, and pancreas are unremarkable. No hydroureteronephrosis. No dilated bowel. No lymphadenopathy by size criteria. Scattered atherosclerotic calcifications without aneurysmal dilatation. Unremarkable unenhanced appearance of pelvic organs and urinary bladder IMPRESSION: No suspicious bony lesion is identified. PATHOLOGY: Bone marrow biopsy 04/17/2022: A, B, and C. Bone marrow, right, aspirate, core biopsy, and clot section: - Normocellular bone marrow with trilineage hematopoiesis - Normal myeloid to erythroid ratio - Adequate megakaryocytes with normal morphology - Decreased iron stores with no ring sideroblasts - Small lymphoid aggregates, favored benign - See comment D. Peripheral blood, smear: - Unremarkable This 61-year-old gentleman presented with a recent diagnosis of polyneuropathy. Subsequent serum protein electrophoresis identified a biclonal gammopathy containing both IgG kappa as well as IgM lambda components. Flow cytometry, performed on this bone marrow sample, did not identify a discrete plasma cell population. Immunohistochemistry, performed on the core biopsy, identified polytypic plasma cells and small lymphoid aggregates that are favored to be benign. The precise etiology of the patient's biclonal gammopathy is uncertain. The bone marrow contains an admixture of kappa and lambda plasma cells. However, the protein electrophoresis identified both kappa and lambda M-proteins. It is uncertain if the plasma cells seen are polytypic versus 2 discrete abnormal plasma populations with different light chain staining. The plasma cells are neither appreciably increased nor form sizable or abnormal clusters/aggregates. The findings may represent a monoclonal gammopathy of undetermined significance. A plasmacytoma cannot be excluded by this study. A biclonal Bcell lymphoproliferative disorder, without bone marrow involvement, cannot be excluded. Correlation with the clinical, radiographic, and laboratory findings is recommended. Final Impression: There is no immunophenotypic evidence of involvement by a plasma cell neoplasm. Correlation with the clinical, laboratory, radiologic, and bone marrow histopathologic findings is suggested. DIAGNOSIS: 46,XY[20] INTERPRETATION: Normal, male karyotype ASSESSMENT/PLAN: (D47.2) Gammopathy, benign monoclonal (primary encounter diagnosis) Assessment: -The patient is a 61-year-old male with a past medical history outlined above who was diagnosed with polyneuropathy manifested as sensory neuropathy in the toes and soles of the feet with burning sensation of the distal anterior lower extremities bilaterally. Evidence of polyneuropathy, sensory greater than motor on EMG testing 12/2021. A serum protein electrophoresis revealed low level biclonal M protein. -Low level IgG kappa monoclonal protein and low level IgM lambda monoclonal protein. No detectable monoclonal protein in the urine via 24-hour urine collection. The serum kappa and lambda light chain assay reveals normal levels with normal ratio. Bone survey showed no concerning lesions. No hypercalcemia, anemia or renal dysfunction. -Antimyelin antibodies negative. -Reviewed further testing now available including the results of the bone marrow biopsy in detail as well as whole-body bone CT scan. No adenopathy or lytic lesion identified. 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 -I discussed the natural history, treated course, and prognosis of MGUS and outlined plan for surveillance. Plan: -Reassess in 6 months. -Recommend neurology evaluation for opinion on etiology of neuropathy and consideration of nerve biopsy. Portions of this documentation were copied and pasted from previous office visit notes in order to provide a cohesive continuity of the history. The note has been reviewed and edited and updated as necessary. During this patient visit I have spent approximately 20 minutes out of 30 in counseling regarding test results and coordinating care. Carlos Storey DO documented in this encounter [facility] 04-08-2022 Miscellaneous Notes You are scheduled for a bone marrow biopsy, On March at 11 am. You are to arrive at 9:30 am and Report to [facility] First Floor Radiology Registration Desk. You can expect to be here for 4-8 hours. Diet: Do not eat any solid food after midnight the day of/night before your procedure. You may drink clear liquids until 9 am, which means black coffee, apple juice, black tea, or water only. Medications: Ok to take your cardiac, blood pressure, anti-seizure, and chronic pain medications with a sip of water, please take prior to arrival. Bring your current medication list. RADIOLOGY RECOMMENDS THESE MEDICATION RESTRICTIONS: Are you taking any of following medications? Plavix. Per the [facility] [place] [facility]-Procedure Coagulation Guidelines this medication does not need to be held for a bone marrow biopsy. Labs: Lab-work needs to be drawn? Yes, an INR will be drawn the day of the procedure. Please check in at the Radiology Registration Desk first and they will direct you to the lab. Supervisor Shipping/Transportation: How will you be arriving for your procedure? Private car. You will need a responsible adult to accompany you to and from the procedure. Your cdl a driver is required to stay with you until you are taken into the procedure room. documented in this encounter [facility] 04-07-2022 Miscellaneous Notes Returned pt's message left earlier today. No answer, left message with call back information. documented in this encounter [facility] 04-04-2022 Miscellaneous Notes You are scheduled for a bone marrow biopsy on April 14. You are to arrive at 8:30 am and report to [facility] First Floor Radiology Registration Desk. You can expect to be here for 4-8 hours. Diet: Do not eat any solid food after midnight the night before your procedure. You may drink clear liquids until 8 am, which means black coffee, apple juice, black tea, or water only. Medications: Ok to take your cardiac, blood pressure, anti-seizure, and chronic pain medications with a sip of water, please take prior to arrival. Bring your current medication list. RADIOLOGY RECOMMENDS THESE MEDICATION RESTRICTIONS: Are you taking any of following medications? Plavix. Per the [facility] [place] [facility]admin[facility]-Procedure Coagulation Guidelines this medication does not need to be held for a bone marrow biopsy. Labs: Lab-work needs to be drawn? Yes, an INR will be drawn the day of the procedure. Please check in at the Radiology Registration Desk first and they will direct you to the lab. Supervisor Shipping/Transportation: How will you be arriving for your procedure? Private car. You will need a responsible adult to accompany you to and from the procedure. Please call [phone] with any questions or if you need to reschedule. documented in this encounter [facility] 04-04-2022 Miscellaneous Notes Left message with call back information documented in this encounter [facility] 04-02-2022 Miscellaneous Notes I filed the orders. CHR MDS isn't needed. Carlos Storey DO Received phone call from [facility]. They are needing the following labs ordered for the Bone Marrow biopsy. -BM DNA -FLOW CYTOMETRY HOLD THE SAMPLE -BM CHROMOSOME -BMRT -CHR MDS documented in this encounter [facility] 04-02-2022 History of Present illness Narrative Oncologic problem(s): 1) IgG kappa monoclonal gammopathy. 1) IgM lambda monoclonal gammopathy. HPI: The patient is a 61-year-old male with a PMH significant for HTN, hyperglycemia, PVD (b/l carotid artery stenosis with thrombus vs mobile plaque; on ASA and Plavix), hyperlipidemia, bipolar 1 disorder, BPH (TURP), seizures and mixed neuropathy. Starting about a 1 to 1 1/2 years ago, noticed numbness of the toes b/l, a little worse on the left. This has progressed to the soles of the feet. More recently burning sensation distal LEs. He had an EMG performed on 01/15/2022 at [facility]. The study was an abnormal test of the lower limbs and demonstrated electrodiagnostic findings suggestive of peripheral polyneuropathy, sensory greater than motor etiology unknown. There was no electrodiagnostic evidence for lumbosacral radiculopathy. He evidently had lab work to work-up the neuropathy on 02/12/2022.. Vitamin B6 level was normal. DEVENDRA was negative. A urine protein electrophoresis revealed 2 peaks in the beta and gamma areas. The first M spike totaled 0.4 g/dL and the second M spike was quantified at 0.2 g/dL. Hemoglobin A1c was 6.5%. TSH normal at 1.74. Vitamin B12 418 chemistry panel remarkable for a normal serum creatinine of 0.98 mg/dL. The total protein was 7.3 g/dL with an albumin of 3.9 g/dL and a globulin level of 3.4 g/dL. The albumin to globulin ratio was normal at 1.1. Total calcium was 9.2 mg/dL. Last night had a sensation on lateral dorsum of the hands and posterior forearms of a sunburn that lasted about 20 min then faded away. This occurs several times a day and has been doing so for about a week. Soles of feet can be painful when walking. Very slight imbalance when walking on occasion. 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 He is not short of breath at rest or with exertion. He was admitted to [facility] in July 2020 for an episode of chest pain. NH was ruled out. He underwent a stress test which did not demonstrate any evidence of ischemia. An echocardiogram 08/22/2020 demonstrated normal LV size and function with an estimated ejection fraction of 60%. Stage II diastolic dysfunction was observed. Most recent carotid duplex ultrasound demonstrated an irregular plaque at the proximal right internal carotid artery with less than 50% stenosis. There was less than 50% stenosis of the right external carotid artery. Within the right carotid bulb there was a small 0.25 x 0.25 cm area suggesting a small mobile mass that was seen previously on duplex ultrasounds 10/23/2020 and 08/08/2020. Smooth plaque was noted at the proximal left internal carotid artery with less than 50% stenosis and less than 50% stenosis of the left external carotid artery was observed as well. Both vertebral arteries were patent with antegrade flow bilaterally. Presents for ongoing oncologic management. Interim history: He has noticed minor progression of the neuropathy. Is now affecting the fingertips. Feet and legs the same. PMH, medications and allergies personally reviewed by me today. Any changes documented in appropriate section. ROS: Constitutional: Denies episodes of fever and night sweats. Not significantly fatigued. Normal appetite. Neuro: Denies JIMÉNEZ, vertigo, dizziness. HEENT: No recent change in voice, vision or hearing. Resp: Denies cough, wheeze and hemoptysis. Denies shortness of breath at rest. Denies RUIZ. CVS: Denies exertional chest pain, PND, orthopnea and LE edema. GI: Denies dysgeusia. Denies symptoms of stomatitis. Denies dysphagia and odynophagia. Denies reflux, n/v, change in bowel habits and abdominal pain. : Denies dysuria or gross hematuria. No symptoms of bladder outlet obstruction. Endo: Denies hot flashes. Denies polyuria and polydipsia. Denies heat and cold intolerance. Musculoskeletal: Denies bone, back, joint and muscular pain. Derm: Denies rash. Denies jaundice and diffuse pruritis. Heme: Denies unusual bleeding and unexplained bruising. Psych: Normal mood. Had left knee replacement 10/2021. Social history: Lifelong non-smoker. Averages about 6 cans of beer a week. No history of drug use. - and lives with his Kristyn in [place]. Family history: He has a brother who had prostate cancer. PHYSICAL EXAM: Vitals: Blood pressure 146/79, pulse 72, temperature 36.9 C (98.5 F), weight 124.1 kg (273 lb 8 oz), SpO2 98 %. Well-appearing and in no acute distress. EYES: Sclerae are anicteric bilaterally. ENT: Oral mucosa is unremarkable. There is no sign of thrush or mucositis. NECK: Supple. No enlargement of thyroid. LYMPHATIC: There is no palpable cervical, supraclavicular, axillary or inguinal adenopathy. RESPIRATORY: Inspiratory breath sounds are of normal intensity in all harris. No rales, wheezes or rhonchi. Expiratory phase is normal. CARDIOVASCULAR: Rhythm is regular. Normal intensity S1/S2. There is no gallop or murmur. ABDOMEN: The abdomen is nondistended. No organomegaly. No tenderness. Extremities: No swelling or edema. SKIN: No jaundice or rash. No petechiae. NEUROLOGIC: applications sales consultant II-XII are grossly intact. No focal motor weakness. DTRs are symmetric and normal. MUSCULOSKELETAL: No joint swelling or tenderness. No muscle wasting. LABS: Component Latest Ref Rng & Units 03/18/2022 WBC 3.70 - 11.00 k/uL 12.86 (H) RBC 4.20 - 6.00 m/uL 4.65 Hemoglobin 13.0 - 17.0 g/dL 13.6 Hematocrit 39.0 - 51.0 % 39.2 MCV 80.0 - 100.0 fL 84.3 MCH 26.0 - 34.0 pg 29.2 MCHC 30.5 - 36.0 g/dL 34.7 RDW-CV 11.5 - 15.0 % 13.9 Platelet Count 150 - 400 k/uL 258 MPV 9.0 - 12.7 fL 9.3 Neut% % 65.1 Abs Neut (ANC) 1.45 - 7.50 k/uL 8.37 (H) Lymph% % 25.4 Abs Lymph 1.00 - 4.00 k/uL 3.27 Newberry% % 7.2 Abs Newberry <0.87 k/uL 0.93 (H) Eosin% % 0.7 Abs Eosin <0.46 k/uL 0.09 Baso% % 0.8 Abs Baso <0.11 k/uL 0.10 Immature Gran % % 0.8 IMMATURE GRANS (ABS) <0.10 k/uL 0.10 (H) NRBC /100 WBC 0.0 Absolute nRBC <0.01 k/uL <0.01 DTYPE Auto Protein, Total 6.3 - 8.0 g/dL 6.8 Albumin 3.9 - 4.9 g/dL 4.3 Calcium 8.5 - 10.2 mg/dL 9.1 Bilirubin, Total 0.2 - 1.3 mg/dL 0.4 Alkaline Phosphatase 38 - 113 U/L 76 AST 14 - 40 U/L 25 ALT 10 - 54 U/L 31 Glucose 74 - 99 mg/dL 195 (H) BUN 9 - 24 mg/dL 13 Creatinine 0.73 - 1.22 mg/dL 0.76 Sodium 136 - 144 mmol/L 135 (L) Potassium 3.7 - 5.1 mmol/L 3.0 (L) Chloride 97 - 105 mmol/L 98 CO2 22 - 30 mmol/L 26 Anion Gap 9 - 18 mmol/L 11 eGFR >=60 mL/min/1.73m 101 B2 Microglobulin <3.1 mg/L 1.5 Uric Acid 4.0 - 8.1 mg/dL 8.0 LD 135 - 225 U/L 252 (H) NT Pro BNP <125 pg/mL 75 Vitamin B12 232-1,245 pg/mL 450 MMA 79 - 376 nmol/L 280 Component Latest Ref Rng & Units 03/18/2022 Albumin 3.37 - 4.23 g/dL 4.12 Alpha 1 Globulin 0.18 - 0.31 g/dL 0.24 Alpha 2 Globulin 0.52 - 0.97 g/dL 0.80 Beta Globulin 0.84 - 1.36 g/dL 0.98 Gamma Globulin 0.70 - 1.44 g/dL 0.77 Interpretation (Prot Electro) No definitive M protein is identified on protein electrophoresis. An M protein is identified on protein electrophoresis. (A) Interpretation Comment for Protein Electrophoresis See separate immunofixation report for characterization of monoclonal gammopathy. M-Protein Location Gamma Fraction 1 M-Protein Location 2 Gamma Fraction 2 M-Protein Concentration <=0.00 g/dL 0.19 (H) SPE Staff Review Reviewed by Azucena Resendiz MD M-Protein Concentration 2 <=0.00 g/dL 0.10 (H) Component Latest Ref Rng & Units 03/18/2022 MPA Result No M protein is identified. M protein is present. (A) Interpretation (MPA) Two sets of atypical restricted bands are present in the specimen, one in the IgG and kappa lanes, and the other in the IgM and lambda lanes. Consistent with a biclonal gammopathy contain IgG kappa and IgM lambda components. Staff Review ([facility]) Reviewed by Josette Dao M.D., Ph.D [place] Free, Serum 3.3 - 19.4 mg/L 12.7 Lambda Free, Serum 5.7 - 26.3 mg/L 9.4 K/L Ratio, Serum 0.26 - 1.65 1.35 Component Latest Ref Rng & Units 03/20/2022 Protein, Timed Urine <0.16 gm/24 Hr 0.18 (H) Period hours 24 Urine Volume 24 hour mL 2,625 Result ([facility]) No M protein is identified. No M protein is identified. Staff Review ([facility]) Reviewed by Josette Dao M.D., Ph.D Component Latest Ref Rng & Units 03/20/2022 Albumin %, 24 Hr Urine % 38.30 Alpha 1 Globulin %, 24 Hr Ur % 5.59 Alpha 2 Globulin %, 24 Hr Ur % 15.80 Beta Globulin %, 24 Hr Ur % 25.78 Gamma Globulin %, 24 Hr Ur % 14.53 Interpretation (UEPG24) No definitive M protein is identified on protein electrophoresis. No definitive M protein is identified on protein electrophoresis. M Tee Quant, 24 Hr Urine g/24hr 0.00 Staff Review ([facility]) Reviewed by Josette Dao M.D., Ph.D Interpretation Comment for Protein Electrophoresis The absence of M-protein on urine protein electrophoresis does not entirely exclude the presence of monoclonal gammopathy in urine. Monoclonal protein analysis (immunofixation), a more definitive test to exclude monoclonal gammopathy, may be requested on this specimen if clinically indicated. IMAGING: Bone survey 03/18/2022: Unremarkable bone survey. No evidence of bony destructive process or pathologic lesion. ASSESSMENT/PLAN: (D47.2) Monoclonal gammopathy (primary encounter diagnosis) Assessment: -Patient is a 58-year-old male with a past medical history outlined above who was recently diagnosed with polyneuropathy manifested as sensory neuropathy in the toes and soles of the feet with burning sensation of the distal anterior lower extremities bilaterally. Evidence of polyneuropathy, sensory greater than motor on EMG testing 12/2021. Recent serum protein electrophoresis revealed low level biclonal M protein. -Reviewed lab work with him in detail. Low level IgG kappa monoclonal protein and low level IgM lambda monoclonal protein. No detectable monoclonal protein in the urine via 24-hour urine collection. The serum kappa and lambda light chain assay reveals normal levels with normal ratio. Bone survey showed no concerning lesions. No hypercalcemia, anemia or renal dysfunction. -I again discussed the spectrum of plasma cell disorders with the patient and his . Most likely has underlying IgG monoclonal gammopathy and IgM lambda monoclonal gammopathy but because of his progressive symptoms of sensory neuropathy (most likely related to hyperglycemia) further work-up is warranted to rule out underlying lymphoplasmacytic lymphoma and/or smoldering myeloma. That will be accomplished with whole-body CT scan and bone marrow biopsy. -I highly recommend neurology consultation as he may need nerve biopsy in order to ultimately determine the etiology of the neuropathy. Plan: -Whole-body CT (may need CT scans of chest, abdomen pelvis with IV contrast to further assess for lymphadenopathy depending on the results of the whole-body CT). -Bone marrow biopsy under CT guidance at [facility]. -Check antimyelin antibodies. -Recommend neurology evaluation for opinion on etiology of neuropathy and consideration of nerve biopsy. Portions of this documentation were copied and pasted from previous office visit notes in order to provide a cohesive continuity of the history. The note has been reviewed and edited and updated as necessary. During this patient visit I have spent approximately 20 minutes out of 30 in counseling regarding test results and coordinating care. Carlos Storey DO documented in this encounter [facility] 03-19-2022 Miscellaneous Notes Relayed message to patient 8:20 am Christal Blunt Left message for patient to return call. When patient calls, please relay message below, document and close this note. Mindy Dowling Good news. Can let him know x-rays yesterday showed a few degenerative changes (normal aging) of the spine and no other abnormalities. Carlos Storey DO documented in this encounter [facility] 03-18-2022 History of Present illness Narrative Radiology Service Progress Note PATIENT NAME: Raghu Huitron DATE OF SERVICE: March 18, 2022 TIME: 3:35 PM PATIENT IDENTITY VERIFICATION COMPLETED USING TWO (2) IDENTIFIERS: Name and Date of confirmed by patient verbally. FALL SCREENING: Has the patient had 2 falls in the last year or 1 fall with injury or currently using an Ambulatory Assistive Device (Walker, Cane, Wheelchair, Crutches, etc.)? No PATIENT GENDER DATA: Male PATIENT RELEVANT IMPLANT DATA REVIEWED: Not Applicable RADIOLOGY DEPARTMENT: General X-ray: Exam(s) Completed: Bone Survey PERIPHERAL IV DATA: Not applicable SIGNED BY: RT Isela(R) March 18, 2022 3:35 PM documented in this encounter [facility] 03-18-2022 History of Present illness Narrative Patient referred by Dr. Sanchez for monoclonal dermopathy. The impression and plan will be communicated by way of the shared electronic record or faxed under separate cover letter. HPI: The patient is a 61-year-old male with a PMH significant for HTN, hyperglycemia, PVD (b/l carotid artery stenosis with thrombus vs mobile plaque; on ASA and Plavix), hyperlipidemia, bipolar 1 disorder, BPH (TURP), seizures and mixed neuropathy. Starting about a 1 to 1 1/2 years ago, noticed numbness of the toes b/l, a little worse on the left. This has progressed to the soles of the feet. More recently burning sensation distal LEs. He had an EMG performed on 01/15/2022 at [facility]. The study was an abnormal test of the lower limbs and demonstrated electrodiagnostic findings suggestive of peripheral polyneuropathy, sensory greater than motor etiology unknown. There was no electrodiagnostic evidence for lumbosacral radiculopathy. He evidently had lab work to work-up the neuropathy on 02/12/2022.. Vitamin B6 level was normal. DEVENDRA was negative. A urine protein electrophoresis revealed 2 peaks in the beta and gamma areas. The first M spike totaled 0.4 g/dL and the second M spike was quantified at 0.2 g/dL. Hemoglobin A1c was 6.5%. TSH normal at 1.74. Vitamin B12 418 chemistry panel remarkable for a normal serum creatinine of 0.98 mg/dL. The total protein was 7.3 g/dL with an albumin of 3.9 g/dL and a globulin level of 3.4 g/dL. The albumin to globulin ratio was normal at 1.1. Total calcium was 9.2 mg/dL. Last night had a sensation on lateral dorsum of the hands and posterior forearms of a sunburn that lasted about 20 min then faded away. This occurs several times a day and has been doing so for about a week. Soles of feet can be painful when walking. Very slight imbalance when walking on occasion. 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 He is not short of breath at rest or with exertion. He was admitted to [facility] in July 2020 for an episode of chest pain. NH was ruled out. He underwent a stress test which did not demonstrate any evidence of ischemia. An echocardiogram 08/22/2020 demonstrated normal LV size and function with an estimated ejection fraction of 60%. Stage II diastolic dysfunction was observed. Most recent carotid duplex ultrasound demonstrated an irregular plaque at the proximal right internal carotid artery with less than 50% stenosis. There was less than 50% stenosis of the right external carotid artery. Within the right carotid bulb there was a small 0.25 x 0.25 cm area suggesting a small mobile mass that was seen previously on duplex ultrasounds 10/23/2020 and 08/08/2020. Smooth plaque was noted at the proximal left internal carotid artery with less than 50% stenosis and less than 50% stenosis of the left external carotid artery was observed as well. Both vertebral arteries were patent with antegrade flow bilaterally. PMH, medications and allergies personally reviewed by me today. Any changes documented in appropriate section. ROS: Constitutional: Denies episodes of fever and night sweats. Not significantly fatigued. Normal appetite. Neuro: Denies JIMÉNEZ, vertigo, dizziness. HEENT: No recent change in voice, vision or hearing. Resp: Denies cough, wheeze and hemoptysis. Denies shortness of breath at rest. Denies RUIZ. CVS: Denies exertional chest pain, PND, orthopnea and LE edema. GI: Denies dysgeusia. Denies symptoms of stomatitis. Denies dysphagia and odynophagia. Denies reflux, n/v, change in bowel habits and abdominal pain. : Denies dysuria or gross hematuria. No symptoms of bladder outlet obstruction. Endo: Denies hot flashes. Denies polyuria and polydipsia. Denies heat and cold intolerance. Musculoskeletal: Denies bone, back, joint and muscular pain. Derm: Denies rash. Denies jaundice and diffuse pruritis. Heme: Denies unusual bleeding and unexplained bruising. Psych: Normal mood. Had left knee replacement 10/2021. Social history: Lifelong non-smoker. Averages about 6 cans of beer a week. No history of drug use. - and lives with his Kristyn in [place]. Family history: He has a brother who had prostate cancer. PHYSICAL EXAM: Vitals: Blood pressure 160/72, pulse 69, temperature 36.8 C (98.3 F), temperature source Temporal, height 182.9 cm (6'), weight 123.8 kg (273 lb). Well-appearing and in no acute distress. EYES: Sclerae are anicteric bilaterally. ENT: Oral mucosa is unremarkable. There is no sign of thrush or mucositis. NECK: Supple. No enlargement of thyroid. LYMPHATIC: There is no palpable cervical, supraclavicular, axillary or inguinal adenopathy. RESPIRATORY: Inspiratory breath sounds are of normal intensity in all harris. No rales, wheezes or rhonchi. Expiratory phase is normal. CARDIOVASCULAR: Rhythm is regular. Normal intensity S1/S2. There is no gallop or murmur. ABDOMEN: The abdomen is nondistended. No organomegaly. No tenderness. Extremities: No swelling or edema. SKIN: No jaundice or rash. No petechiae. NEUROLOGIC: applications sales consultant II-XII are grossly intact. No focal motor weakness. DTRs are symmetric and normal. MUSCULOSKELETAL: No joint swelling or tenderness. No muscle wasting. ASSESSMENT/PLAN: (D47.2) Monoclonal gammopathy (primary encounter diagnosis) Assessment: -Patient is a 58-year-old male with a past medical history outlined above who was recently diagnosed with polyneuropathy manifested as sensory neuropathy in the toes and soles of the feet with burning sensation of the distal anterior lower extremities bilaterally. Evidence of polyneuropathy, sensory greater than motor on EMG testing 12/2021. Recent serum protein electrophoresis revealed low level biclonal M protein. -Personally reviewed records available through the [facility] system. -I discussed the spectrum of plasma cell disorders (including systemic AL amyloidosis) with the patient and his . Unknown if the 2 small monoclonal gammopathy is related to the neuropathy but further work-up certainly warranted. I discussed the testing in detail. Plan: -Lab work today. -24-hour urine collection. -Office visit in 2 weeks to discuss/review results. -He may need bone marrow biopsy and whole-body CT. -Ultimately will require neurology evaluation as well. I spent a total of 75 minutes on the date of the service which included preparing to see the patient, [id number] patient care, completing clinical documentation, obtaining and/or reviewing separately obtained history, performing a medically appropriate examination, counseling and educating the patient/family/caregiver, ordering medications, tests, or procedures and communicating results to the patient/family/caregiver. Carlos Storey DO documented in this encounter [facility] 03-04-2022 Miscellaneous Notes DX: GAMMOPATHY REF PROVIDER: DR. SANCHEZ FILE GIVEN TO DR. STOREY FOR REVIEW. Katina Perez documented in this encounter [facility] Monoclonal gammopathy Monoclonal paraproteinemia [facility] Monoclonal gammopathy- Primary Monoclonal paraproteinemia Neuropathy Mononeuritis of unspecified site Multiple myeloma not having achieved remission (HCC) Multiple myeloma, without mention of having achieved remission [facility] Diagnosis Chronic anticoagulation- Primary Long-term (current) use of anticoagulants documented [facility]* Diagnosis Monoclonal gammopathy- Primary Monoclonal paraproteinemia documented in this encounter [facility]* Diagnosis Gammopathy, benign monoclonal- Primary Monoclonal paraproteinemia documented in this encounter [facility] note* Diagnosis Gammopathy, benign monoclonal- Primary Monoclonal paraproteinemia documented in this encounter [facility]* Diagnosis 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 Neuropathy Mononeuritis of unspecified site documented in this encounter 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 note* Diagnosis IgM kappa monoclonal gammopathy- Primary documented in this encounter [facility] for referral (narrative)* Diagnostic Procedure Only (Routine) - Closed Specialty Diagnoses / Procedures Referred By Contac t Referred To Contact XR IMAGING Diagnoses Monoclonal gammopathy Procedures XR BONE SURVEY ROUTINE RADIOLOGIC EXAMINATION OSSEOUS SURVEY COMPL Carlos Storey DO [address] [place] [address] Xr Imaging Referral ID Status Reason Start Date Expiration Date V isits Requested Visits Authorized [id number] Closed Auto-Generate d Referral 03/18/2022 04/17/2023 1 1 [facility] for referral (narrative)* Diagnostic Procedure Only (Routine) - Closed Specialty Diagnoses / Procedures Referred By Contac t Referred To Contact XR IMAGING Diagnoses Monoclonal gammopathy Procedures XR BONE SURVEY ROUTINE RADIOLOGIC EXAMINATION OSSEOUS SURVEY COMPL Carlos Storey, DO [address] [id number] Xr Imaging Referral ID Status Reason Start Date Expiration Date V isits Requested Visits Authorized [id number] Closed Auto-Generate d Referral 03/18/2022 04/17/2023 1 1 [facility] for referral (narrative)* Diagnostic Procedure Only (Routine) - Pending Review Specialty Diagnoses / Procedures Referred By Contac t Referred To Contact XR IMAGING Diagnoses Gammopathy, benign monoclonal Procedures XR BONE SURVEY ROUTINE RADIOLOGIC EXAMINATION OSSEOUS SURVEY COMPL Carlos Storey, DO [address] [place] [address] Xr Imaging Referral ID Status Reason Start Date Expiration Date Visits Requested Visits Authorized [id number] Pending Review Auto-Generat ed Referral 10/31/2022 11/29/2023 1 1 [facility] for visit Narrative* Diagnostic Procedure Only (Routine) - Closed Specialty Diagnoses / Procedures Referred By Contac t Referred To Contact XR IMAGING Diagnoses Monoclonal gammopathy Procedures XR BONE SURVEY ROUTINE RADIOLOGIC EXAMINATION OSSEOUS SURVEY COMPL Carlos Storey, DO [address] [place] [address] Xr Imaging Referral ID Status Reason Start Date Expiration Date V isits Requested Visits Authorized [id number] Closed Auto-Generate d Referral 03/18/2022 04/17/2023 1 1 [facility] Reason for Referral Specialty Diagnoses / Procedures Referred By Contac t Referred To Contact CT IMAGING Diagnoses Multiple myeloma not having achieved remission (HCC) Procedures CT WHOLE BODY SKULL TO KNEE WO IVCON UNLISTED COMPUTED TOMOGRAPHY PROCEDURE Carlos Storey, DO [address] [place] [address] Ct Imaging Referral ID Status Reason Start Date Expiration Date Visits Requested Visits Authorized [id number] Authorized Auto-Generat ed Referral 04/02/2022 05/02/2023 1 1 Advance Directives No Advanced Directives Records FoundDocuments on File Type Date Recorded Patient Heel Attacher Wood Expl anation Advance Directive(s) 04/07/2022 11:44 AM Documents on File Type Date Recorded Patient Heel Attacher Wood Expl anation Advance Directive(s) 04/17/2022 8:57 AM Advance Directive(s) 04/07/2022 11:44 AM Summary Purpose Family History No Family History Records FoundNo Family History Records FoundNo Family History Records Found Additional Source Comments Source Comments (unrecognize d section and content) In the event this informatio n is protected by the Federal Confidentiality of Alcohol and Drug Abuse Patient Records regulations: The Federal rules restrict any use of the information to criminally investigate or prosecute any alcohol or drug abuse patient.[facility] event this information is protected by the Federal Confidentiality of Alcohol and Drug Abuse Patient Records regulations: The Federal rules restrict any use of the information to criminally investigate or prosecute any alcohol or drug abuse patient.[facility] the event this information is protected by the Federal Confidentiality of Alcohol and Drug Abuse Patient Records regulations: The Federal rules restrict any use of the information to criminally investigate or prosecute any alcohol or drug abuse patient.[facility] the event this information is protected by the Federal Confidentiality of Alcohol and Drug Abuse Patient Records regulations: The Federal rules restrict any use of the information to criminally investigate or prosecute any alcohol or drug abuse patient.[facility] the event this information is protected by the Federal Confidentiality of Alcohol and Drug Abuse Patient Records regulations: The Federal rules restrict any use of the information to criminally investigate or prosecute any alcohol or drug abuse patient.[facility] the event this information is protected by the Federal Confidentiality of Alcohol and Drug Abuse Patient Records regulations: The Federal rules restrict any use of the information to criminally investigate or prosecute any alcohol or drug abuse patient.[facility] the event this information is protected by the Federal Confidentiality of Alcohol and Drug Abuse Patient Records regulations: The Federal rules restrict any use of the information to criminally investigate or prosecute any alcohol or drug abuse patient.[facility] the event this information is protected by the Federal Confidentiality of Alcohol and Drug Abuse Patient Records regulations: The Federal rules restrict any use of the information to criminally investigate or prosecute any alcohol or drug abuse patient.[facility] the event this information is protected by the Federal Confidentiality of Alcohol and Drug Abuse Patient Records regulations: The Federal rules restrict any use of the information to criminally investigate or prosecute any alcohol or drug abuse patient.[facility] the event this information is protected by the Federal Confidentiality of Alcohol and Drug Abuse Patient Records regulations: The Federal rules restrict any use of the information to criminally investigate or prosecute any alcohol or drug abuse patient.[facility] the event this information is protected by the Federal Confidentiality of Alcohol and Drug Abuse Patient Records regulations: The Federal rules restrict any use of the information to criminally investigate or prosecute any alcohol or drug abuse patient.[facility] the event this information is protected by the Federal Confidentiality of Alcohol and Drug Abuse Patient Records regulations: The Federal rules restrict any use of the information to criminally investigate or prosecute any alcohol or drug abuse patient.[facility] the event this information is protected by the Federal Confidentiality of Alcohol and Drug Abuse Patient Records regulations: The Federal rules restrict any use of the information to criminally investigate or prosecute any alcohol or drug abuse patient.[facility] the event this information is protected by the Federal Confidentiality of Alcohol and Drug Abuse Patient Records regulations: The Federal rules restrict any use of the information to criminally investigate or prosecute any alcohol or drug abuse patient.[facility] the event this information is protected by the Federal Confidentiality of Alcohol and Drug Abuse Patient Records regulations: The Federal rules restrict any use of the information to criminally investigate or prosecute any alcohol or drug abuse patient.[facility] the event this information is protected by the Federal Confidentiality of Alcohol and Drug Abuse Patient Records regulations: The Federal rules restrict any use of the information to criminally investigate or prosecute any alcohol or drug abuse patient.[facility] the event this information is protected by the Federal Confidentiality of Alcohol and Drug Abuse Patient Records regulations: The Federal rules restrict any use of the information to criminally investigate or prosecute any alcohol or drug abuse patient.[facility] the event this information is protected by the Federal Confidentiality of Alcohol and Drug Abuse Patient Records regulations: The Federal rules restrict any use of the information to criminally investigate or prosecute any alcohol or drug abuse patient.[facility] the event this information is protected by the Federal Confidentiality of Alcohol and Drug Abuse Patient Records regulations: The Federal rules restrict any use of the information to criminally investigate or prosecute any alcohol or drug abuse patient.[facility] the event this information is protected by the Federal Confidentiality of Alcohol and Drug Abuse Patient Records regulations: The Federal rules restrict any use of the information to criminally investigate or prosecute any alcohol or drug abuse patient.[facility] the event this information is protected by the Federal Confidentiality of Alcohol and Drug Abuse Patient Records regulations: The Federal rules restrict any use of the information to criminally investigate or prosecute any alcohol or drug abuse patient.[facility] the event this information is protected by the Federal Confidentiality of Alcohol and Drug Abuse Patient Records regulations: The Federal rules restrict any use of the information to criminally investigate or prosecute any alcohol or drug abuse patient.[facility] Reason for Visit (unrecogniz ed section and content) Reason Comments New Patient Evaluation Specialty Diagnoses / Procedures Referred By Qian saini Referred To Contact Hematology/Oncology / HEMATOLOGY/ONCOLOGY Diagnoses SHEARER HELPER/GAMMOPATHY/REF SILVERIO SANCHEZ* FIRST AVAILABLE PER PROVIDER'S SCHEDULE Procedures OFFICE/OUTPATIENT NEW MODERATE MDM 45-59 MINUTES NEW PATIENT Silverio Sanchez [address] [facility] [address] [address] Carlos Storey, DO [address] [place] [address] Referral ID Status Reason Start Date Expiration Date Visits Re quested Visits Authorized [id number] Closed 03/18/2022 11/22/2022 1 1 Reason Comments Results Reason Comments Established Patient Specialty Diagnoses / Procedures Referred By Contac t Referred To Contact Hematology/Oncology / HEMATOLOGY/ONCOLOGY Diagnoses 2 WK OV/LABS AND BONE SURVEY 03/18* Procedures EST SIMPLE Carlos Storey, DO [address] [facility] [place] [address] Carlos Storey, DO [address] [facility] [place] [address] Referral ID Status Reason Start Date Expiration Date Visits Re quested Visits Authorized [id number] Closed 04/02/2022 11/22/2022 1 1 Reason Comments Orders Reason Comments Appointment Reason Comments Returning Patient's Call Reason Comments Radiology Pre Procedure Instructions Reason Comments Established Patient Specialty Diagnoses / Procedures Referred By Contac t Referred To Contact Hematology/Oncology / HEMATOLOGY/ONCOLOGY Diagnoses Essential (primary) hypertension OV/CT 04/10/BMBX 04/17* Procedures OFFICE/OUTPATIENT ESTABLISHED MOD MDM 30-39 MIN EST COMPLEX Carlos Storey, DO [address] [place] [address] Carlos Storey, DO [address] [facility] [place] [address] Referral ID Status Reason Start Date Expiration Date Visits Re quested Visits Authorized [id number] Closed 05/02/2022 11/22/2022 1 1 Reason Comments Follow Up Reason Comments Results Antiganglioside anti bodies Reason Comments Follow Up Tumor board recommen dations Reason Comments Results Cryoglobulins negati ve Care Teams (unrecognized sec tion and content) Earth Mover Relationship Specialty Start Date End Date Silverio Sanchez [address] [place] [address] PCP - General Family Practice 03/18/22 Earth Mover Relationship Specialty Start Date End Date Silverio Sanchez [address] [place] [address] PCP - General Family Practice 03/18/22 Earth Mover Relationship Specialty Start Date End Date Silverio Sanchez [address] [place] [address] PCP - General Family Practice 03/18/22 Earth Mover Relationship Specialty Start Date End Date Silverio Sanchez [address] [place] [address] PCP - General Family Practice 03/18/22 Earth Mover Relationship Specialty Start Date End Date Silverio Sanchez [address] [place] [address] PCP - General Family Practice 03/18/22 Earth Mover Relationship Specialty Start Date End Date Silverio Sanchez [address] [place] [address] PCP - General Family Practice 03/18/22 Earth Mover Relationship Specialty Start Date End Date Silverio Sanchez [address] [place] [address] PCP - General Family Medicine 03/18/22 Earth Mover Relationship Specialty Start Date End Date Silverio Sanchez [address] [place] [address] PCP - General Family Medicine 03/18/22 Earth Mover Relationship Specialty Start Date End Date Silverio Sanchez [address] [place] [address] PCP - General Family Medicine 03/18/22 Carlos Storey, DO [address] [place] [address] Hematology/Oncology 12/22/22 Earth Mover Relationship Specialty Start Date End Date Silverio Sanchez [address] [place] [address] PCP - General Family Medicine 03/18/22 Carlos Storey, DO [address] [place] [address] Hematology/Oncology 12/22/22 Earth Mover Relationship Specialty Start Date End Date Silverio Sanchez [address] [place] [address] PCP - General Family Medicine 03/18/22 Carlos Storey, DO [address] [place] [address] Hematology/Oncology 12/22/22 Earth Mover Relationship Specialty Start Date End Date Silverio Sanchez [address] [place] [address] PCP - General Family Medicine 03/18/22 Carlos Storey, DO [address] [place] [address] Hematology/Oncology 12/22/22 Earth Mover Relationship Specialty Start Date End Date Silverio Sanchez [address] [place] [address] PCP - General Family Medicine 03/18/22 Carlos Storey, DO [address] [place] [address] Hematology/Oncology 12/22/22 (unrecognized sect ion and content) No Status Records FoundNo Status Records FoundNo Status Records Found INFORMATION SOURCE (unrecogn ized section and content) DATE CREATED AUTHOR AUTHOR'S GILBERTO ATLEORA 01/22/2023 [facility] DATE CREATED AUTHOR AUTHOR'S ORGANZEINA ATION 11/11/2023 [facility] FOR RECORDS PERTAINING TO PATIENTS WHO ARE OR HAVE BEEN ENROLLED IN A CHEMICAL DEPENDENCY/SUBSTANCEABUSE PROGRAM, SOME INFORMATION MAY BE OMITTED. This clinical summary was aggregated from multiple sources. Caution should be exercised in using it in the provision of clinical care. This summary normalizes information from multiple sources, and as a consequence, information in this document may materially change the coding, format and clinical context of patient data. In addition, data may be omitted in some cases. CLINICAL DECISIONS SHOULD BE BASED ON THE PRIMARY CLINICAL RECORDS. [employer] [facility]. provides no warranty or guarantee of the accuracy or completeness of information in this document.
== END | disposition home or self-care (01) ==
LOC: CVS 08:36
PROVIDERS: PCP Family Medicine; Visit Provider Physician Assistant
DX: I65.29 Occlusion and stenosis of unspecified carotid artery (principal)
CPT/HCPCS: 93880

== ENCOUNTER → 2024-02-18 | Outpatient (CLI) | payer OTHER, MEDICARE, SELFPAY ==
[2024-02-18 09:01] LABS: Absolute Lymphocyte Count 2.23 X10^3/uL (0.83-4.51); Absolute Neutrophil Count 7.8 X10^3/uL (2.0-7.7); Basophil# 0.12 X10^3/uL; Eosinophil# 0.32 X10^3/uL; Eosinophils% 2.8 % (0-5); Hematocrit 42.3 % (40-54); Hemoglobin 13.5 g/dL (13.0-16.5); Lymphocyte # 2.23 X10^3/ul (0.83-4.51); Lymphocyte % 19.4 % (19-41); Mean Corp Hgb Conc 31.9 g/dL (32-36); Mean Corpuscular Hgb 28.1 pg (27.0-32.0); Mean Corpuscular Volume 88.1 fL (80-94); Monocyte# 0.95 X10^3/uL; Monocyte% 8.3 % (0-10); NRBC Flagged by Analyzer 0 % (0-5); Neutrophil # 7.78 X10^3/uL (2.7-7.7); Neutrophil % 67.9 % (47-70); Platelet Count 287 K/mm3 (150-450); RBC Distribution Width CV 13.3 % (11.6-14.6); RBC Distribution Width SD 43.1 fl (35.1-43.9); White Blood Count 11.5 K/mm3 (4.4-11.0)
[2024-02-18 09:25] LABS: Hemoglobin A1c 6.2 % (3.8-5.6)
[2024-02-18 09:40] LABS: ALB/GLOB Ratio 1.2 RATIO (0.9-2.4); AST(SGOT) 21 U/L (15-37); Alanine Aminotransfer ALT/SGPT 35 U/L (16-61); Albumin, Serum 3.6 g/dL (3.2-5.0); Alkaline Phosphatase 56 U/L (45-117); Anion Gap 5 (5-15); BUN 13 mg/dL (7-18); BUN/Creat Ratio 14.8 RATIO (10-20); Calcium,Total 8.9 mg/dL (8.5-10.1); Chloride 108 mmol/L (98-107); Cholesterol 101 mg/dL (200); Creatinine, Serum 0.88 mg/dL (0.70-1.30); EST Glomerular Filtration Rate 93 mL/min (>60); Est Glom Filt Rate - Afr Amer 112 mL/min (>60); Globulin 3.1 g/dL (2.2-4.2); Glucose 155 mg/dL (74-106); High Density Lipoprotein 37 mg/dL; Potassium 4.1 mmol/L (3.5-5.1); Protein, Total 6.7 g/dL (6.4-8.2); Sodium Level 139 mmol/L (136-145); Triglycerides 154 mg/dL; Very Low Density Lipoprotein 31 mg/dL (5-40)
[2024-02-18 10:19] LABS: Microalbumin,Random Urine < 5.0 mg/L (NO RANGE EST.)
== END | disposition home or self-care (01) ==
LOC: LAB 07:48
PROVIDERS: PCP Family Medicine; Referring Provider Nurse Practitioner Psychiatric/Mental Health; Visit Provider Nurse Practitioner Psychiatric/Mental Health
DX: E11.8 Type 2 diabetes mellitus with unspecified complications (principal)
CPT/HCPCS: 36415; 80053; 80061; 80178; 82043; 82570; 83036; 85025

== ENCOUNTER → 2024-07-15 | Outpatient (CLI) | payer MEDICARE, OTHER, SELFPAY ==
[2024-07-15 12:19] LABS: Absolute Lymphocyte Count 2.33 X10^3/uL (0.83-4.51); Basophil# 0.11 X10^3/uL; Basophil% 0.8 % (0-1); Eosinophil# 0.26 X10^3/uL; Hematocrit 37.6 % (40-54); Hemoglobin 12.7 g/dL (13.0-16.5); Lymphocyte # 2.33 X10^3/ul (0.83-4.51); Lymphocyte % 17.9 % (19-41); Mean Corp Hgb Conc 33.8 g/dL (32-36); Mean Corpuscular Hgb 30.1 pg (27.0-32.0); Mean Corpuscular Volume 89.1 fL (80-94); Mean Platelet Vol. 10.2 fl (6.2-12.0); Monocyte# 1.16 X10^3/uL; Monocyte% 8.9 % (0-10); NRBC Flagged by Analyzer 0 % (0-5); Neutrophil # 9.04 X10^3/uL (2.7-7.7); Neutrophil % 69.6 % (47-70); Platelet Count 293 K/mm3 (150-450); RBC Distribution Width CV 13.4 % (11.6-14.6); RBC Distribution Width SD 43.3 fl (35.1-43.9); Red Blood Count 4.22 M/mm3 (4.6-6.2)
[2024-07-15 12:56] LABS: ALB/GLOB Ratio 1.1 RATIO (0.9-2.4); AST(SGOT) 22 U/L (15-37); Alanine Aminotransfer ALT/SGPT 35 U/L (16-61); Albumin, Serum 3.3 g/dL (3.2-5.0); Alkaline Phosphatase 59 U/L (45-117); Anion Gap 9 (5-15); BUN 20 mg/dL (7-18); BUN/Creat Ratio 20.7 RATIO (10-20); Calcium,Total 8.8 mg/dL (8.5-10.1); Chloride 107 mmol/L (98-107); Cholesterol 84 mg/dL (200); Creatinine, Serum 0.97 mg/dL (0.70-1.30); EST Glomerular Filtration Rate 83 mL/min (>60); Est Glom Filt Rate - Afr Amer 100 mL/min (>60); Globulin 3.1 g/dL (2.2-4.2); Glucose 189 mg/dL (74-106); High Density Lipoprotein 38 mg/dL; Potassium 3.8 mmol/L (3.5-5.1); Protein, Total 6.4 g/dL (6.4-8.2); Sodium Level 139 mmol/L (136-145); Triglycerides 146 mg/dL; Very Low Density Lipoprotein 29 mg/dL (5-40)
== END | disposition home or self-care (01) ==
LOC: MFPLAB 09:44
PROVIDERS: PCP Family Medicine; Visit Provider Family Medicine
DX: E11.59 Type 2 diabetes mellitus with other circulatory complications (principal); I10 Essential (primary) hypertension
CPT/HCPCS: 36415; 80053; 80061; 84443; 85025

== ENCOUNTER → 2024-08-12 | Outpatient (CLI) | payer MEDICARE, OTHER, SELFPAY ==
--- NOTE | 2024-08-12 07:57 | RAD_ITS ---
STUDY: X-RAY - ESOPHAGUS (BARIUM SWALLOW) WITH FLUOROSCOPY REASON FOR EXAM: Male, 63 years old. Dysphagia TECHNIQUE: 73 fluoroscopic view(s) of the esophagus were obtained following swallowing of barium. FLUOROSCOPY TIME (if supplied): (1 minute and 6 seconds) minutes/seconds. 18.7 mGy. COMPARISON: None. FINDINGS: There is no demonstrated esophageal foreign body. There is no demonstrated stricture or mucosal abnormality. Normal gastroesophageal junction, without a demonstrated hiatal hernia. The patient ingested a 12 mm tablet of barium. The tablet is trapped at the gastroesophageal junction. Endoscopic correlation recommended. Large amount of residual food particles seen within the stomach. Normal visualized aortic arch and descending thoracic aorta. Normal visualized pulmonary parenchyma. There are diffuse degenerative changes of the visualized thoracic spine. RAD/Esophagus Dual Contrast IMPRESSION: The ingested 12 mm tablet of barium is trapped at the gastroesophageal junction. Endoscopic correlation recommended. Electronically Signed: Sha Quinn MD at 9:32 EDT ,
== END | disposition home or self-care (01) ==
LOC: RAD 07:49
PROVIDERS: PCP Family Medicine; Referring Provider Family Medicine; Visit Provider Family Medicine
DX: R13.10 Dysphagia, unspecified (principal)
CPT/HCPCS: 74221

== ENCOUNTER → 2024-10-03 | Outpatient (CLI) | payer MEDICARE, OTHER, SELFPAY ==
[2024-10-03 17:58] LABS: Absolute Neutrophil Count 7.9 X10^3/uL (2.0-7.7); Basophil# 0.12 X10^3/uL; Eosinophil# 0.19 X10^3/uL; Eosinophils% 1.6 % (0-5); Hematocrit 39.4 % (40-54); Hemoglobin 13.2 g/dL (13.0-16.5); Lymphocyte % 22.9 % (19-41); Mean Corp Hgb Conc 33.5 g/dL (32-36); Mean Corpuscular Volume 89.5 fL (80-94); Mean Platelet Vol. 10.2 fl (6.2-12.0); Monocyte# 1.15 X10^3/uL; Monocyte% 9.4 % (0-10); NRBC Flagged by Analyzer 0 % (0-5); Neutrophil # 7.92 X10^3/uL (2.7-7.7); Neutrophil % 64.6 % (47-70); Platelet Count 273 K/mm3 (150-450); RBC Distribution Width CV 13.9 % (11.6-14.6); RBC Distribution Width SD 45.1 fl (35.1-43.9); White Blood Count 12.2 K/mm3 (4.4-11.0)
[2024-10-03 18:36] LABS: ALB/GLOB Ratio 1.2 RATIO (0.9-2.4); AST(SGOT) 19 U/L (15-37); Alanine Aminotransfer ALT/SGPT 38 U/L (16-61); Albumin, Serum 3.5 g/dL (3.2-5.0); Alkaline Phosphatase 55 U/L (45-117); Anion Gap 6 (5-15); BUN 12 mg/dL (7-18); BUN/Creat Ratio 13.8 RATIO (10-20); Chloride 104 mmol/L (98-107); Cholesterol 104 mg/dL (200); Creatinine, Serum 0.87 mg/dL (0.70-1.30); EST Glomerular Filtration Rate 93 mL/min (>60); Est Glom Filt Rate - Afr Amer 113 mL/min (>60); Glucose 149 mg/dL (74-106); High Density Lipoprotein 50 mg/dL; Protein, Total 6.5 g/dL (6.4-8.2); Sodium Level 138 mmol/L (136-145); Triglycerides 133 mg/dL; Very Low Density Lipoprotein 27 mg/dL (5-40)
[2024-10-03 18:39] LABS: Hemoglobin A1c 7.2 % (3.8-5.6)
== END | disposition home or self-care (01) ==
LOC: MFPLAB 13:55
PROVIDERS: PCP Family Medicine; Visit Provider Family Medicine
DX: E11.8 Type 2 diabetes mellitus with unspecified complications (principal)
CPT/HCPCS: 36415; 80053; 80061; 83036; 85025

== ENCOUNTER → 2024-10-12 | Outpatient (CLI) | payer MEDICARE, OTHER, SELFPAY ==
--- NOTE | 2024-10-12 07:42 | CT_ITS ---
STUDY: CT RIGHTLOWER EXTREMITY WITHOUT CONTRAST REASON FOR EXAM: Male, 64 years old. right knee. [facility] PRE-OP RADIATION DOSAGE (If Supplied By Facility): CTDIvol = ( 18.76 ) mGy, DLP = ( 1369.52 ) mGycm TECHNIQUE: Thin section transaxial imaging of the ankle was obtained, with sagittal and coronal reconstructed images. Individualized dose optimization techniques were used for this CT. COMPARISON: X-ray of the right knee dated June 08, 2024 Hip findings: Normal femoral head, neck, intertrochanteric region and visualized proximal femur. Normal acetabulum. Normal hip joint. Normal visualized superior and inferior pubic rami and ischial tuberosities. Normal hip joint without articular joint space narrowing. Normal acetabulum. Normal labrum. Normal femoral head. Normal femoral neck and intratrochanteric region. Normal gluteus minimus, medius and iliopsoas tendons and distal insertions. Normal superior and inferior pubic rami. Normal pubic symphysis. Normal ischial tuberosity. Normal origin of the hamstring tendons. Normal visualized iliac wing, sacroiliac joint, and sacral ala. Normal visualized soft tissue structures of the pelvis. Knee findings: There is moderate narrowing in the medial compartment with near [id number] contact at the periphery were significant narrowing is present. Mild subchondral cystic changes are also present at the periphery of the medial tibial plateau. The lateral compartment space is mildly narrowed. The patellofemoral space is preserved. A small knee joint effusion is present. No fracture is present. No demonstrated avascular necrosis or osteochondral defect. Atherosclerotic calcifications are present in the calf and distal thigh. Normal proximal tibiofibular articulation. The quadriceps tendon is grossly normal. The patellar tendon is grossly normal. Normal Hoffa''s fat pad. The soft tissues are unremarkable. Ankle findings: Normal visualized distal tibia and fibula. Normal tibiotalar articulation and talar dome. Normal talus, calcaneus, navicular and cuboid tarsal bones. Normal subtalar, talonavicular and calcaneocuboid articulations. Normal navicular-cuneiform, cuneiform tarsal bones and intercuneiform articulations. Normal tarsometatarsal articulations and visualized metatarsi. Mild diffuse subcutaneous edema is present around the ankle and plantar aspect of the foot. Small plantar calcaneal spur also noted. CT/Extremity Lower without Contra IMPRESSION: 1. There is moderate narrowing in the medial compartment with near [id number] contact at the periphery were significant narrowing is present. Mild subchondral cystic changes are also present at the periphery of the medial tibial plateau. The lateral compartment space is mildly narrowed. The patellofemoral space is preserved. A small knee joint effusion is present. Electronically Signed: Lon Meza MD at 13:30 EST ,
== END | disposition home or self-care (01) ==
LOC: CT 07:38
PROVIDERS: PCP Family Medicine; Referring Provider Orthopaedic Surgery; Visit Provider Orthopaedic Surgery
DX: M17.11 Unilateral primary osteoarthritis, right knee (principal)
CPT/HCPCS: 73700

== ENCOUNTER 2024-11-01 06:04 | Day surgery (SDC) | payer MEDICARE, OTHER, SELFPAY ==
--- NOTE | 2024-10-13 07:47 | EKG12_ITS ---
Test Reason : PRE OP Blood Pressure : */* mmHG Vent. Rate : 54 BPM Atrial Rate : 54 BPM P-R Int : 172 ms QRS Dur : 94 ms QT Int : 424 ms P-R-T Axes : 43 56 20 degrees QTcB Int : 402 ms Sinus bradycardia Possible Inferior infarct , age undetermined Abnormal ECG Confirmed by AFRICA CHILDRESS ([id number]), dictionary editor KOFI CANADA ([id number]) on 10/14/2024 12:00:55 PM Referred By: Roly Chi Confirmed By: AFRICA CHILDRESS
[2024-10-13 09:11] LABS: Magnesium 1.9 mg/dL (1.6-2.6)
[2024-10-13 10:12] LABS: Prothrombin Time (Protime)PT. 13.2 SECONDS (11.7-14.9)
[2024-10-13 10:13] LABS: Partial Thromboplast Time 25.9 Seconds (24.1-36.2)
[2024-10-13 10:30] LABS: Hemoglobin A1c 7.2 % (3.8-5.6)
[2024-10-14 04:08] LABS: Fructosamine 247 umol/L (0-285)
[2024-11-01] VITALS (14 sets, daily range): BP systolic 92–139; BP diastolic 46–74; PULSE 59–73; RESP 14–20; TEMP 36.1–36.9; O2SAT 78–99; BMI 36.8
[2024-11-01] MEDS: Lactated Ringers 1,000 ML 15 ML IV (06:43)
[2024-11-01] MEDS: Magnesium 2 GM for ERAS IV (06:44)
[2024-11-01] MEDS: Celecoxib 200 MG Capsule 400 MG PO (06:44)
[2024-11-01] MEDS: Acetaminophen 500 MG Tablet 1000 MG PO ×2 (06:45→14:42)
[2024-11-01] MEDS: Gabapentin 600 MG Tablet PO (06:45)
[2024-11-01] MEDS: Insulin Lispro 100 UNIT/ML INSULN.PEN SC ×2 (06:46→11:03)
[2024-11-01] MEDS: Scopolamine 1mg/72hr Patch 1 PATCH TD (07:00)
--- NOTE | 2024-11-01 07:26 | HP.PCM_ITS ---
History and Physical Date of Admission: 11/01/24 [facility] [address] [place] [address] OFFICE VISIT Date of Service: 06/08/24 MR#: [id number] Acct: [id number] Name: NIKO BROWN Rep #: [id number] : 1960 Provider: Dr. Roly Chi DO Age/Sex: 63/M Location[place] [facility] Status: Signed Intake Vital Signs 05/31/2407:50 Height 6 ft 1 in Weight: 261 lb BMI 34.4 BP 146/72 H Blood Pressure Location Lt brachial Position Sitting Respiration 16 Pulse 83 Pulse Source Monitor Temp 98.6 F Temp Source Temporal Pulse Oximetry (%) 94 Oxygen Delivery Method room air Intake Visit Reasons: RIGHT KNEE Chief Complaint: Accompanied by: Self Is patient in pain?: Yes Pain scale (1-10): 5 Allergies No Known Allergies Allergy (Verified 06/08/24 08:00) Medications ?Medication ?Instructions ?Recorded ?Confirmed ?Type amlodipine 10 mg tablet 10 mg PO DAILY blood pressure 08/07/20 06/08/24 History hydrochlorothiazide 25 mg tablet 25 mg PO DAILY BP 06/18/21 06/08/24 History clopidogrel 75 mg tablet (Plavix) 75 mg PO DAILY BLODD THINNER 10/16/21 06/08/24 History accu-check fe plus See Rx Instructions .Route 09/10/22 06/08/24 History .COMPLEX DIABETES acetaminophen 500 mg capsule 500 mg PO Q6H PRN Pain 09/10/22 06/08/24 History metoprolol succinate 50 mg 100 mg PO DAILY heart 09/10/22 06/08/24 History tablet,extended release 24 hr losartan 100 mg tablet (Cozaar) 100 mg PO DAILY BP 11/26/22 06/08/24 History metformin 500 mg tablet,extended 500 mg PO BID DIABETES 11/26/22 06/08/24 History release 24 hr atorvastatin 40 mg tablet 40 mg PO QHS 07/14/23 06/08/24 History meloxicam 15 mg tablet 15 mg PO DAILY 07/14/23 06/08/24 History aspirin 81 mg tablet,delayed 81 mg PO DAILY 09/03/23 06/08/24 History release baclofen 20 mg tablet 20 mg PO TID 02/17/24 06/08/24 History hydralazine 50 mg tablet 100 mg PO TID 02/17/24 06/08/24 History benzonatate 200 mg capsule 200 mg PO TID PRN cough #20 caps 04/11/24 06/08/24 Rx methylprednisolone 4 mg tablets in See Rx Instructions PO PER PKG DIR 04/11/24 06/08/24 Rx a dose pack (Medrol (Anirudh)) #21 tabs lithium carbonate 300 mg capsule 900 mg (3 x 300 mg) PO 0800 04/19/24 06/08/24 Rx DEPRESSION 90 days #270 caps trazodone 50 mg tablet See Rx Instructions PO QHS PRN 04/19/24 06/08/24 Rx sleep #60 tabs prednisone 10 mg tablet 10 mg PO DAILY #30 tabs 05/09/24 06/08/24 Rx amitriptyline 100 mg tablet 100 mg PO QHS #90 tabs 05/31/24 06/08/24 Rx lactulose 10 gram/15 mL oral 15 ml PO DAILY Tremor #1,350 mL 05/31/24 06/08/24 Rx solution tizanidine 4 mg tablet 4 mg PO TID PRN muscle spasticity; 05/31/24 06/08/24 Rx muscle pain #270 tabs Have you fallen in the past year?: Yes PFSH Medical History URI (upper respiratory infection) Carotid stenosis Hematoma of neck Wears glasses Alcohol use Bipolar disorder High cholesterol Seizures Non-smoker History of echocardiogram History of heart attack Hypertension Cardiology follow-up encounter History of stress test Osteoarthritis of left knee Carotid stenosis, bilateral Shortness of breath Bipolar 1 disorder Essential hypertension Pharyngitis Acute bronchitis Chest pain Shoulder pain Arthritis Surgical History History of right-sided carotid endarterectomy Hx of transurethral resection of prostate Hx of total knee arthroplasty History of colonoscopy (~10/2022) History of bursectomy History of arthroscopy of knee History of carpal tunnel release Family History Father Myocardial infarction Hypertension AlcoholismMother Cancer DiabetesBrother Heart disease Hypertension Alcoholism Cancer prostate Grandfather Myocardial infarction CVA (cerebral vascular accident) Carotid arterial disease Social History Smoking Status: Never smoker alcohol intake: current alcohol intake frequency: 0-2 drinks per day Alcohol type: beer substance use type: does not use HPI RIGHT KNEE Details: This documentation accurately reflects the service provided and the decisions made by me, Dr. Roly Chi, DO 06/08/24 0754. Part of today?s visit was documented by Evelia Connor ATC, acting as scribe. NIKO BROWN is a 63 year old M here today for right knee pain. Patient did have a steroid injection 01/21/2023 in the right knee and an MRI 06/10/2023. Last office visit 06/22/2023: We did review the MRI at that time which showed medial and lateral meniscus tearing in addition to moderate cartilage wear of the medial lateral compartments. We discussed treatment options including PT bracing steroid injections and surgical interventions including knee arthroscopy partial meniscectomy versus total knee arthroplasty. He cannot do NSAIDs secondary to Plavix at the time Patient rates his pain about 5/10 today. Patient states the right knee is progressively getting worse over time. He states he works a lot outside in the yard and it just keeps getting worse. Patient states the location of the pain changes depending on the day and what he is doing. Patient states he feels as if the knee is filling up with liquid throughout the day over the anterior aspect and then by night it will go down. He states this has been going on for about a month now. Patient states the knee feels unstable and the knee has given out about 6 times within the last year. He states this has never caused him to fall but almost have. Patient states he will take Aleve and he is prescribed medical marijuana that he uses for his back and this tends to help his knee pain. Patient denies any numbness but states he will sometimes get some tingling. Patient denies any recent injections to his right knee. Patient had a steroid injection 01/21/2023 in which he states gave him relief for about 2-3 months. Patient states he has painful snapping and popping that occurs in the knee and this is mainly over the lateral aspect of the knee. Patient states when the knee gives out on him it is very painful. Ortho Exam General General: Yes no acute distress and Yes well groomed Neurologic: Yes alert and Yes oriented x3 Psychologic: Yes reasonable and appropriate Right Knee Skin/Wound: Yes CDI, No erythema, No ecchymosis and Yes swelling (lower leg) Knee ROM: Yes ROM-Extension -20 to 0 and Yes ROM-Flexion 0-140 (108) Examination: Yes Med jt line tenderness, Yes Lat jt line tenderness and Yes TTP Pes Anserine Stability: NML: Anterior Drawer, NML: Posterior Drawer, NML: Valgus 0, NML: Valgus 30, NML: Varus 0 and NML: Varus 30 KNEE: swelling in both legs thickened skin over the anterior knee from years of kneeling no joint effusion pain with full EXT FLEX 108 with some stiffness Head: Normocephalic Atraumatic Chest: symmetrical rise, non-labored breathing, no audible wheeze Abdomen: no guarding, non-rigid Office Procedures Ortho Injections Injections Yes Knee Right Is this Buy & Bill?: No Details: Obtained consent for injection. Under sterile conditions, injected the patients right knee with 1.5mL Bupivacaine, 1.5mL Lidocaine, and 1.0mL Depomedrol. The patient tolerated the injection well without any noted complication. Patient should call our office if redness develops, pain worsens or if they have any concerns. Office Meds Depo-Medrol 40 mg/mL suspension for injection Performing Provider: Roly Chi DO Performing Location: [facility] Administered by: Roly Chi DO on 06/08/24 08:46 Dose Route Admin Location Dispensed Lot Number Expiration Date [facility] [place] 40 mg intra-articular Right knee 1 mL [id number] 08/23/25 3459-9864-96 [facility] Supplemental Info 06/10/2023 MRI right knee: Moderate cartilage wear medial femoral compartment. Mild MCL sprain. Complex tear posterior horn of the Lateral read as medial meniscus extending into the body with loss of substance of the body and posterior horn. Moderate thinning of the lateral compartment. Lateral tilt and subluxation of the patella with surface or articular cartilage irregularity of the medial and lateral patellar facets. Marked prepatellar subcutaneous soft tissue edema with prepatellar bursitis and joint effusion with medial plica and popliteal cyst suspect tear of the medial meniscus posterior horn 06/08/2023 x-ray left knee: Status post press-fit total knee replacement without change from prior x-ray 01/21/2023 x-ray right knee there is mild joint space narrowing and spurring noted in the lateral compartment there is mild spurring noted at the medial femoral condyle and the notch view there is mild spurring of the patellofemoral joint 11/26/2022 x-ray left knee: Status post press-fit total knee arthroplasty with good interfaces and positioning 11/19/2021 left total knee arthroplasty: Dr. 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 Brown is a very pleasant 63-year-old gentleman who I previously performed a left total knee arthroplasty on which she is very happy with he wishes his right knee would feel like his left. He continues to have significant discomfort in regards to his right knee with mechanical symptoms. Once again we reviewed his previous and current x-rays and MRI which demonstrate he does have arthritis as well as complex tear lateral meniscus and a medial meniscus tear, once again reviewed the options of surgical and nonsurgical intervention including continued injection therapy bracing physical therapy arthroscopic partial medial partial lateral meniscectomy and total knee arthroplasty. He also has intermittent prepatellar bursitis he does have a long history of being on his knees and now he only is on his knees in the yard. I explained this is outside of the knee joint and a separate issue it is not really bothering him right now. I did explain that his x-rays today look relatively preserved joint space however the MRI shows a worse cartilage wear that we could consider the knee arthroscopy however he is not interested in that and he would like to have a total knee replacement later this year unfortunately he had recent family traumatic events which will postpone things and he does request to get a steroid injection today in his right knee. He understands he cannot have a knee replacement for 3 months. Risk benefits and alternatives of surgery were once again reviewed including He does have bilateral lower extremity swelling which does put him at increased risks he understands. Risks, benefits and alternatives of surgery reviewed including but not limited to bleeding, infection, nerve, artery and/or tissue damage, fracture, VTE, mechanical feel of the knee, continued pain, stiffness and expected post- operative course. Explained to patient to call our office once he talks to his and figures out when he would like to move forward with the surgery. Spoke to patient that if the steroid injection works better than he expects and he would like to wait on the surgery that is fine. Risks, benefits and alternatives of surgery reviewed including but not limited to bleeding, infection, nerve, artery and/or tissue damage, fracture, VTE, mechanical feel of the knee, continued pain, stiffness and expected post- operative course. Follow up in an as needed basis or call when he figures out a surgery date or sooner if pain, swelling, numbness or associated symptoms, or concerns develop. All questions answered. Patient in agreement of plan. Clinical Quality Measures Falls Risk Screening/Assistive Devices Have you fallen in the past year?: Yes 06/08/24 [id number] <Electronically signed by Roly Chi DO> Date Roly Chi DO I have examined the patient and the H&P has been reviewed. There are no clinical changes since date of exam.
--- NOTE | 2024-11-01 07:32 | PRE.ANES_ITS ---
ASA Classification* ASA Classification ASA Classification: 3 Assessment & Plan Anesthesia* Anesthesia Assessment Anesthesia Assessment: Discussed sedation and/or anesthesia options, risks, benefits, and alternatives with patient/parents/legal guardian/POA. Questions invited. The patient/parents/legal guardian/POA seems to understand and agrees to proceed with anesthesia plan. Reviewed the physical assessment, medical history, allergy history and patient home medications list prior to surgery/procedure/anesthetic and documented any changes. Performed airway and anesthesia risk assessments. Anesthesia Type Anesthesia Type: Spinal (Off Plavix for 7 days per patient) and Block Anesthesia Focused Assessment* Temperature: 98.4 F Pulse Rate: 68 Blood Pressure: 139/74 Respiratory Rate: 16 Pulse Ox: 93 Airway Assessment Mouth opens: >3 cm Mallampati Score: II Focused Labs Anesthesia Preop lab: CBC WBC 12.2 K/mm3 (4.4-11.0) H 10/03/24 13:56 RBC 4.40 M/mm3 (4.6-6.2) L 10/03/24 13:56 Hgb 13.2 g/dL (13.0-16.5) 10/03/24 13:56 Hct 39.4 % (40-54) L 10/03/24 13:56 Plt Count 273 K/mm3 (150-450) 10/03/24 13:56 CHEMISTRY Potassium 4.0 mmol/L (3.5-5.1) 10/03/24 13:56 Sodium 138 mmol/L (136-145) 10/03/24 13:56 Magnesium 1.9 mg/dL (1.6-2.6) 10/13/24 07:47 BUN 12 mg/dL (7-18) 10/03/24 13:56 Creatinine 0.87 mg/dL (0.70-1.30) 10/03/24 13:56 Glucose 149 mg/dL (74-106) H 10/03/24 13:56 POC Glucose 174 mg/dL (74-106) H 12/09/22 11:27 TSH 3.820 uIU/mL (0.358-3.740) H 07/15/24 09:44 COAG PT 13.2 SECONDS (11.7-14.9) 10/13/24 07:47 Pre-Assessment Diagnosis/Proposed Procedure Planned Operative Procedure(s): (R) ERAS Right Total Knee Replacement Robotic Arm Assisted Anesthesia History Anesthesia History - clinical specialist vascular: Anesthesia History - clinical specialist vascular Hx Hospitalization No 10/12/24 11:09 Any Problems With Anesthesia No 10/12/24 11:09 Cholinesterase deficiency No 10/12/24 11:09 You/Your Family Experience No 10/12/24 11:09 fever (hyperthermia) with Relationship Recent Exposure to Contagious No 11/01/24 06:34 Disease Does patient have nerve No 10/12/24 11:09 stimulator Patient instructed to have device shut off --Does patient have Pacemaker No 11/01/24 06:34 or ICD? When Was Last Pacemaker Check QUESTION #4 FULL TEXT: You/Your Family Experience fever (hyperthermia) with Anesthesia Last Oral Intake Last Oral intake: Last Oral Intake NPO since 04:30 11/01/24 06:34 Meds taken in AM with sips of water? Meds patient instructed to take am of surgery PONV PONV - clinical specialist vascular: PONV - clinical specialist vascular Female No 10/12/24 11:09 HX of Motion Sickness No 10/12/24 11:09 HX of N/V After Surgery No 10/12/24 11:09 Non-Smoker No 10/12/24 11:09 Duration of Surgery greater Yes 10/12/24 11:09 than 60 minutes Number of Risk Factors 1 10/12/24 11:09 PONV Score Low Risk 10/12/24 11:09 Height & Weight Height & Weight: Anesthesia: Height & Weight Height 6 ft 1 in 11/01/24 06:34 Weight: 126.6 kg 11/01/24 06:34 Body Mass Index (BMI) 36.8 11/01/24 06:34 Respiratory Assessment Respiratory Assessment - clinical specialist vascular: Respiratory Tract Infection Hx - clinical specialist vascular Hx Respiratory Tract Infection No 10/12/24 11:09 STOP Sleep Apnea STOP Sleep Apnea - clinical specialist vascular: STOP Sleep Apnea - clinical specialist vascular Hx Hypertension Yes: CONTROLLED WITH MED 10/12/24 11:09 Hx Sleep Apnea No 10/12/24 11:09 CPAP No 10/12/24 11:09 BIPAP Do you snore loudly (louder No 10/12/24 11:09 than talking or can be heard Do you often feel tired/ No 10/12/24 11:09 fatigued/ sleepy during daytime? Has anyone observed you stop No 10/12/24 11:09 breathing during sleep? STOP Results Negative 10/12/24 11:09 QUESTION #5 FULL TEXT : Do you snore loudly (louder than talking or can be heard through closed doors)? Tobacco Use History Tobacco Use History - clinical specialist vascular: Tobacco Use History - clinical specialist vascular Tobacco Use Smoking Status Never smoker 10/12/24 11:09 Hx Tobacco Use No 10/12/24 11:09 Years Smoking Packs Smoked per Day Smoking Cessation Date was within the last 15 years Hx Smoking Cessation Date Hx Smoking Cessation Counseling Hematologic Medial History Hematologic Hx - clinical specialist vascular: Hematologic Medical Hx - online media director Hx of Blood Transfusion No 10/12/24 11:09 Hx of Transfusion in last 3 No 10/12/24 11:09 Months Date of Last Transfusion (if within last 3 months) Ever experience any problems No 10/12/24 11:09 with transfusion(s)? Specify any problems Hx of Preganancy in last 3 N/A 10/12/24 11:09 Months Nurse Filling Out Transfusion NBUCHER 10/12/24 11:09 & Questions: Date: 10/12/24 10/12/24 11:09 Time: 11:11 10/12/24 11:09 Patient unable to answer at this time (ie. confused, unrespo /Reproduction History /Reproductive History - clinical specialist vascular: /Reproductive Hx- clinical specialist vascular Hx Now Gestational Age (in weeks): EDC: Hx Hx Para Hx Section SAB No 10/12/24 11:09 Active Medications Active Medications: Current Medications Generic Name Dose Route Start Last Admin Trade Name Freq PRN Reason Stop Dose Admin Tranexamic Acid 1,000 mg/ 110 mls @ 660 mls/hr 11/01/24 07:30 Sodium Chloride IV 11/01/24 07:39 X1 ONE Tranexamic Acid 1,000 mg/ 110 mls @ 660 mls/hr 11/01/24 07:30 Sodium Chloride IV 11/01/24 07:39 X1 ONE Lactated Ringer's 1,000 mls @ 125 mls/hr 11/01/24 07:30 IV 11/01/24 15:29 .Q8H MELISSA Magnesium Sulfate 2 gm/ 104 mls @ 208 mls/hr 11/01/24 07:30 11/01/24 06:44 Dextrose IV 11/01/24 07:59 208 mls/hr X1 ONE Administration Lactated Ringer's 1,000 mls @ 15 mls/hr 11/01/24 06:15 11/01/24 06:43 IV 11/06/24 19:34 15 mls/hr .Q48H MELISSA Administration Protocol Insulin Human Lispro 1 - 6 unit 11/01/24 07:30 11/01/24 06:46 Insulin Lispro 100 Unit/Ml Insuln.Pen SC 2 u Q4H PRN PRN Administration BG>/= 180, SEE PROTOCOL Protocol [facility] Medical History (Updated 10/17/24 @ 14:[address] Roly Chi, DO) URI (upper respiratory infection) Carotid stenosis Hematoma of neck Wears glasses Alcohol use Bipolar disorder High cholesterol Seizures Non-smoker History of echocardiogram History of heart attack Hypertension Cardiology follow-up encounter History of stress test Osteoarthritis of left knee Carotid stenosis, bilateral Shortness of breath Bipolar 1 disorder Essential hypertension Pharyngitis Acute bronchitis Chest pain Shoulder pain Arthritis Home Medications ?Medication ?Instructions ?Recorded ?Last Taken ?Type amlodipine 10 mg tablet 10 mg PO DAILY blood pressure 08/07/20 10/31/24 History hydrochlorothiazide 25 mg tablet 25 mg PO DAILY BP 06/18/21 10/31/24 History clopidogrel 75 mg tablet (Plavix) 75 mg PO DAILY BLODD THINNER 10/16/21 10/26/24 History accu-check fe plus See Rx Instructions .Route 09/10/22 Unknown History .COMPLEX DIABETES acetaminophen 500 mg capsule 500 mg PO Q6H PRN Pain 09/10/22 Unknown History metoprolol succinate 50 mg 100 mg PO DAILY heart 09/10/22 10/31/24 History tablet,extended release 24 hr losartan 100 mg tablet (Cozaar) 100 mg PO DAILY BP 11/26/22 10/31/24 History metformin 500 mg tablet,extended 500 mg PO BID DIABETES 11/26/22 10/31/24 History release 24 hr atorvastatin 40 mg tablet 40 mg PO QHS 07/14/23 10/31/24 History meloxicam 15 mg tablet 15 mg PO DAILY 07/14/23 10/31/24 History aspirin 81 mg tablet,delayed 81 mg PO DAILY 09/03/23 10/26/24 History release baclofen 20 mg tablet 20 mg PO TID 02/17/24 10/31/24 History hydralazine 50 mg tablet 100 mg PO TID 02/17/24 10/31/24 History benzonatate 200 mg capsule 200 mg PO TID PRN cough #20 caps 04/11/24 10/31/24 Rx lithium carbonate 300 mg capsule 900 mg (3 x 300 mg) PO 0800 04/19/24 10/31/24 Rx DEPRESSION 90 days #270 caps amitriptyline 100 mg tablet 100 mg PO QHS #90 tabs 05/31/24 10/31/24 Rx lactulose 10 gram/15 mL oral 15 ml PO DAILY Tremor #1,350 mL 05/31/24 10/31/24 Rx solution tizanidine 4 mg tablet 4 mg PO TID PRN muscle spasticity; 05/31/24 10/31/24 Rx muscle pain #270 tabs trazodone 50 mg tablet 100 mg (2 x 50 mg) PO QHS PRN 07/20/24 10/31/24 Rx sleep #180 tabs Allergy/AdvReac Type Severity Reaction Status Date / Time No Known Allergies Allergy Verified 11/01/24 06:32 Family History Father Myocardial infarction Hypertension Alcoholism Mother Cancer Diabetes Brother Heart disease Hypertension Alcoholism Cancer prostate Grandfather Myocardial infarction CVA (cerebral vascular accident) Carotid arterial disease Surgical History (Updated 10/12/24 @ 11:12 by Iris Contreras) History of carotid endarterectomy History of right-sided carotid endarterectomy Hx of transurethral resection of prostate Hx of total knee arthroplasty History of colonoscopy (~10/2022) History of bursectomy History of arthroscopy of knee History of carpal tunnel release Social History Smoking Status: Never smoker alcohol intake: current alcohol intake frequency: 0-2 drinks per day Alcohol type: beer substance use type: does not use Review of Systems (Anesthesia) ROS Narrative System reviewed and no additional complaints, except as documented.
[2024-11-01 07:33] LABS: Bedside Glucose 226 mg/dL (74-106)
[2024-11-01] MEDS: Cefazolin 3 GM in Syringe 1 EACH IV ×2 (08:01→14:57)
[2024-11-01] MEDS: TXA 1000mg in NS100 100ml (IVPB at Incision) 660 MG IV (08:15)
[2024-11-01] MEDS: dexAMETHasone 10 MG/ML Vial IV (08:15)
--- NOTE | 2024-11-01 08:15 | KNEE_PTH ---
PATIENT: NIKO BROWN LOC: [facility] [place][id number] AGE/SX: 64/M ROOM: RE11/01/[address]: Dr. Roly Chi DO : 1960 BED: DIS: 11/01/2024 SPEC #: [id number] RECD: 11/01/24 11:13 STATUS: KARINE REQ #: [id number] SHONDA: 11/01/24 08:[address]: Roly Chi DEPT: SURGICAL PATHOLOGY RECD BY: Sherri Griffin ENTERED: 11/01/24 12:09 SP TYPE: TOTAL KNEE OTHR DR: MD Dr. Derrell Celaya MD Tissues: Knee, NOS Procedures: Decalcification bone/plaque Surgery Specimen Level IV HEADER OPERATION: Right total knee replacement robotic arm assist PRE-OP DIAGNOSIS: Mechanical pain of right knee TISSUE SUBMITTED: Right knee bone and tissue MICROSCOPIC DIAGNOSIS Bone and soft tissue, right knee, total knee replacement/resection: Pieces of bone with degenerative osteoarthritic changes. Fragments of dense fibroconnective tissue and reactive synovial tissue. SJ: 11/04/2024 MICROSCOPIC DESCRIPTION Slides are reviewed. GROSS DESCRIPTION Received is one container designated bone and soft tissue right knee. The specimen consists of multiple fragments of medina-yellow bone measuring in aggregate 17.0 x 15.0 x 2.0 cm. Also in the specimen container are multiple fragments of yellow-white soft tissue measuring in aggregate 2.0 x 1.0 x 0.5cm. A number of bony fragments contain articular surfaces consistent with tibial plateau and femoral condyle and displaying prominent osteophyte formation, eburnation and bone erosion. Asphalt Distributor Operator sections are submitted in two cassettes as follows: 1 - soft tissue, 2 - bone after decalcification. / AM. 11/01/2024 TC:5 CPT: 63136, 17448
[2024-11-01] MEDS: Bupivacaine 0.5% PF 10 ML VIAL (08:40)
[2024-11-01] MEDS: dexAMETHasone 4 MG/ML Vial (08:41)
[2024-11-01] MEDS: Epinephrine (1 mg/ml) 1 MG/ML VIAL (08:41)
[2024-11-01] MEDS: 0.9% Normal Saline (Pres. free 10 ML Vial (08:42)
[2024-11-01] MEDS: TXA 1000mg in NS100 100ml (IVPB at Closure) 660 MG IV (10:09)
--- NOTE | 2024-11-01 10:35 | RAD_ITS ---
EXAM: XR RIGHT KNEE, 1 OR 2 VIEWS CLINICAL INDICATION: Postop -- in PACU TECHNIQUE: Frontal and/or lateral views of the right knee. COMPARISON: No relevant prior studies available. FINDINGS: BONES/JOINTS: Right total knee arthroplasty. Components appear well seated. No acute fracture. No subluxation. Normal alignment. No sclerotic or destructive changes observed. SOFT TISSUES: Gas within the knee joint in the soft tissues around the right knee. No radiopaque foreign body. RAD/Knee 1 or 2 Views IMPRESSION: Gas within the knee joint in the soft tissues around the right knee. Electronically Signed: Simeon Miranda MD at 4:17 EST ,
--- NOTE | 2024-11-01 10:38 | PCM.OPRPT ---
Operative Report (Standard) Operative Information Date of Procedure: 11/01/24 Pre-Operative Diagnosis: Right knee DJD Post-Operative Diagnosis: Right knee DJD Surgery/Procedure Performed: Right total knee arthroplasty machinist/machine builder: Yes Religious Leader: Alan Yates Tasks completed by clinical trials assistant: Opening & closing Type of Anesthesia: Spinal RN Documented Start/Stop Times: Operation Date: 11/01/24 08:15 Case Time Into Pre-Op 11/01/24 06:09 Into Room 11/01/24 07:59 Anesthesia Start 11/01/24 08:01 Procedure Start 11/01/24 08:25 Procedure End 11/01/24 10:27 Procedure Start Time: 08:25 Procedure Stop Time: : Select all DRAINS/GRAFTS/IMPLANTS that apply: Prosthetic device Prosthetic device details: [place] Estimated Blood Loss: 125 Specimen collected: Yes Description of specimen(s) removed: Bone and bursa Description of surgery: Preoperative diagnosis: Right knee DJD prepatellar bursitis Postoperative diagnosis: [Same] Procedure: Right total knee arthroplasty CT guided Robotic Assisted , excision of bursa Implant: [place] triathlon [press fit], femoral component size6, tibial baseplate size 6, [asymmetric] patella size 26, polyethylene X3 size [9] [CS] Anesthesia: [spinal] with adductor canal block Tourniquet time: [12] [minutes at 300 mmHg] Complications: None Condition: Stable to PACU Estimated blood loss: 125 cc [Stacker Straightener Alan Yates. My physician equity sales assistant was a vital part of this case. He was important in appropriate retraction during the case, and protection of soft tissues during procedure. His intimate knowledge of the case and my steps aided in safe and expedient completion of the procedure as well as appropriate position of the extremity during the case. He was also vital in assisting with closure under my direct supervision.] Indication for procedure: This is a 64-year-old male with long standing degenerative joint disease of the knee who has failed conservative treatment and wished to proceed with elective total knee arthroplasty. Risk benefits and alternatives were reviewed including; risk of bleeding, infection, nerve artery and tissue damage, continued pain, postoperative stiffness, venous thromboembolism, need for postoperative rehabilitation, mechanical feel to the knee, and expected postoperative course. The pre- operative CT and templating was performed with component sizing. Procedure: The patient was met in the preoperative holding area. The operative extremity was identified by both patient and physician and was marked. Patient was met by anesthesia. An adductor canal block was placed by anesthesia [postoperatively] the patient was brought back to the operating room on a wheeled cart and transferred to the operating table in the supine position. Anesthesia was started. A well-padded tourniquet was placed on the operative extremity. The patient was prepped and draped in the usual sterile fashion. A timeout was called to ensure the proper patient procedure and extremity were being contemplated. An esmarch was used to exsanguinate the extremity. The tourniquet was inflated. He did have a large prepatellar bursal sac that was filled with fluid A 10 blade scalpel was used to make a midline incision down through the skin and subcutaneous tissue. Skin retractors placed. The prepatellar bursa was excised Bovie and Aquamantis were used to perform meticulous hemostasis. full-thickness flaps were elevated medial and lateral along the joint capsule. A deep blade scalpel was used to perform a medial parapatellar arthrotomy. The knee was brought to full extension. A bovie was used to release the soft tissues off the most proximal aspect of the medial tibial plateau, a three-quarter inch curved osteotome was also used in this process. The infrapatellar fat pad was excised. [The suprapatellar fat pad was excised partially anteriorolateraly and portion the anterioromedial pad was elevated from the femur]. At this point our intra-articular femoral array was placed at a 45 degree angle proximal and posterior to the medial epicondyle. femoral checkpoint was placed at this time. [Our tibial array was placed partially intra incisional 1 stab incision was made for the inferior pin with a 15 blade scaple, and ] pins were placed and attached to the tibial array , tibial checkpoint was placed in the proximal tibial metaphysis. Tourniquet was let down. At this point registration johnson were taken throughout the knee . Once the knee was registered we then tensioned the medial and lateral ligaments in extension and 90 degrees of flexion. We then used these numbers to adjust our components within parameters to balance the knee in both flexion and extension once this was done on our monitor we then proceeded with using the robotic arm to make our tibial plateau cut, anterior and posterior chamfer and distal femur cuts. we removed the cut fragments with the use of a bovie and Malena, we did use a lamina assistant administrator to insure we visualized and removed all posterior osteophytes and at this time also used the Aquamantis on the posterior joint capsule. we then trialed and achieved the desired plan with a well-balanced knee. we used the green probe to yoli the corresponding tibial rotation based on our CT template. Lug holes were drilled in the femur the tibia preparation was completed with the appropriate sized base plate pinned based on previous rotation yoli. An appropriate sized fin punch was used on the tibia [and 4 corner drill was used for the press fit component] and the patella was prepared by first using a caliper to ensure sufficient bone stock and a patellar reamer to remove the desired amount of bone. lug holes drilled for an [asymmetric poly]. We then brought the knee through range of motion with excellent patellar tracking. We thoroughly irrigated the knee. Trial components were removed a posterior capsular injection was preformed with our standard cocktail. In addition the aqua Mantis was also used to aid in hemostasis. Betadine rinse was allowed to sit and washed out completely. Components were [press-fit into place]. Aricept rinse was then used followed by several more liters of irrigation after it was allowed to sit. The joint capsule was closed with #1 Ethibond [id number] in the upper part of the arthrotomy and #1 Vicryl in the lower part of the arthrotomy. , Followed by 2-0 Vicryl in the subcutaneous tissues [with mell in the skin]. Arrays and checkpoints were removed prior to closure all counts were correct stab incisions were closed with a staple standard dressing in the form of Mepilex AG for the main incision and a small Mepilex over the pin holes. Thigh-high TATO hose applied over top of dressing. Patient tolerated the procedure well and was directed to PACU in stable condition . [there were no intraoperative complications]. Surgical Findings: DJD knee prepatellar bursitis Complications Complications: No Admit VTE Documentation VTE Mechan Device Prophylaxis: SCD's
--- NOTE | 2024-11-01 10:41 | EX.PCM.DISCH ---
Discharge Instructions Diet Discharge Diet: No restrictions Activity Weight Bearing Status: Weight bearing as tolerated Dressing / Incision Call your doctor if you observe: Shortness of breath and Chest pain Additional Dressing/Incision Instructions:: Ice and elevate lower extremities 2 weeks while not ambulating. Ambulation is encouraged. Weight bearing as tolerated. Use assistive devise for stability. Encourage FULL knee extension and flexion 1 time EVERY time you get up and down and MULTIPLE times per day. No showering until 72 hours after surgery. May begin showering postop day #3. Remove the dressing prior to shower and gently wash with warm water and antibacterial soap then pat dry and place abdominal pad (or plain gauze) and TATO hose over top. This is to be done daily. Do not submerge for 3 weeks. If not showering daily after the initial 72 hours then you must clean incision and change dressing daily after the dressing comes off, must come off by 7 days postop. Do not allow animals near the incision area. Keep clean. Follow anti-coagulation recommendations as prescribed. Do not take any NSAIDs while on blood thinner. Do not take any additional narcotic pain medication other than what was prescribed on your surgery day without discussing with physician. Narcotic medication can be addictive. Do not drink alcohol while taking narcotics. Supplement narcotic prescription with acetaminophen 1000 mg 4 times a day. Start physical therapy. If you are not currently scheduled for physical therapy or you are unsure of appointment time please call office [place] to arrange. Call Dr. Chi with any concerns. Follow Up Care Please Follow Up With: Roly Chi DO When: 2 weeks Test Results: Test results from this visit will be discussed in further detail at your follow-up appointment, if applicable. Discharge Plan Admission Primary Reason for Your Visit: Right total knee arthroplasty Attending Provider: Roly Chi Primary Care Provider: Derrell Salmeron Consulting Providers: Luke Odell Instructions Print Language: Kiswahili Discharge Orders/Prescriptions Prescriptions: New acetaminophen 500 mg tablet 1,000 mg PO Q6H Qty: 90 0RF cephalexin 500 mg capsule 1,000 mg PO Q8H Qty: 6 0RF Rx Instructions: Take 3 tabs before you go to bed and 3 tabs after 5 AM morning after surgery when you wake up oxycodone 5 mg tablet 5 - 10 mg PO Q4H PRN (Reason: pain) 7 Days Qty: 60 0RF Eliquis 2.5 mg tablet 2.5 mg PO BID Qty: 28 0RF Rx Instructions: Begin morning after surgery. Continued amlodipine 10 mg tablet 10 mg PO DAILY metoprolol succinate 50 mg tablet extended release 24 hr 100 mg PO DAILY hydrochlorothiazide 25 mg tablet 25 mg PO DAILY accu-check fe plus See Rx Instructions .ROUTE .COMPLEX Rx Instructions: ACCU-CHECK atorvastatin 40 mg tablet 40 mg PO QHS hydralazine 50 mg tablet 100 mg PO TID amitriptyline 100 mg tablet 100 mg PO QHS Qty: 90 3RF lactulose 10 gram/15 mL solution 15 ml PO DAILY Qty: 1350 3RF tizanidine 4 mg tablet 4 mg PO TID PRN (Reason: muscle spasticity; muscle pain) Qty: 270 3RF baclofen 20 mg tablet 20 mg PO TID lithium carbonate 300 mg capsule 900 mg PO 0800 90 Days Qty: 270 1RF Rx Instructions: Please take 1 capsule in the morning and 2 capsules at bedtime benzonatate 200 mg capsule 200 mg PO TID PRN (Reason: cough) Qty: 20 0RF trazodone 50 mg tablet 100 mg PO QHS PRN (Reason: sleep) Qty: 180 2RF losartan [Cozaar] 100 mg tablet 100 mg PO DAILY Patient Comments: TAKE 1 TABLET BY MOUTH ONCE DAILY metformin 500 mg tablet extended release 24 hr 500 mg PO BID Held acetaminophen 500 mg capsule 500 mg PO Q6H PRN (Reason: Pain) Hold Instructions: Duplicate aspirin 81 mg tablet,delayed release (DR/EC) 81 mg PO DAILY Hold Instructions: Resume on 11/04/24. clopidogrel [Plavix] 75 mg tablet 75 mg PO DAILY Hold Instructions: May resume the day after the completion of Eliquis prescription Patient Comments: STOP 2 DAYS PRIOR Discontinued meloxicam 15 mg tablet 15 mg PO DAILY Other Ambulatory Orders: 12 Lead EKG (Routine) Timeframe: 20241013 Location: None Selected Ordered By: Dr. Roly Chi Type & Screen - PAT ONLY (Routine) Timeframe: 20241101 Facility: [facility] - Location: Laboratory Ordered By: Dr. Roly Chi Referrals / Follow Up: Derrell Salmeron MD [Primary Care Provider] - Disposition Disposition (needs filled in before D/C Order can be placed): Home, Self Care
[2024-11-01] MEDS: Lactated Ringers 1,000 ML 125 ML IV (11:20)
[2024-11-01] MEDS: Ketorolac 30 MG/ML Syringe 15 MG IV (11:25)
[2024-11-01 11:26] LABS: Bedside Glucose 227 mg/dL (74-106)
[2024-11-01] MEDS: oxyCODONE 5 MG Tablet PO (12:17)
--- NOTE | 2024-11-01 13:28 | PCM.POST.ANE ---
Anesthesia: Postop Eval I Current Vital Signs Temperature: 98.3 F Pulse Rate: 64 Blood Pressure: 120/55 Respiratory Rate: 16 Pulse Ox: 99 Oxygen Delivery Method: Room Air Assessment Airway patent: Yes Spontaneous unlabored respirations: Yes Mental status: Awake and Calm nausea: No Vomiting: No Anesthesia Complication: No Fluid Hydration Crystalloid volume administer (ml): 1,600 Total IV fluid infused: 1,600 Progress Note Anesthesia document: Postop Eval 1 completed: Yes
--- NOTE | 2024-11-01 14:09 | POSTOPAN2_ITS ---
Anesthesia Postop Eval I Sum Postop Eval Completion status Anesthesia document: Postop Eval 1 completed: Yes Anesthesia Postop Eval I Summary Anesthesia Postop Eval I Summary: Anesthesia Postop Eval I: Assessment Summary Airway patent Yes 11/01/24 13:28 [email or web address] Spontaneous unlabored Yes 11/01/24 13:28 [email or web address] [email or web address] respirations Mental status Awake,Calm 11/01/24 13:28 [email or web address] [email or web address] nausea No 11/01/24 13:28 [email or web address] [email or web address] Vomiting No 11/01/24 13:28 [email or web address] Anesthesia Postop Eval I: Fluid Summary Crystalloid volume administer 1,600 11/01/24 13:28 [email or web address] [email or web address] (ml) Colloids volume administered ( ml) Blood Product volume administered (ml) Total IV fluid infused 1,600 11/01/24 13:28 [email or web address] [email or web address] Anesthesia Postop Eval I: Summary Notes Anesthesia Complication No 11/01/24 13:28 [email or web address] Anesthesia Complication Comment: Post-operative progress note Anesthesia: Postop Eval II Evaluation Mental status: Awake Pain Level: 0 nausea: No Vomiting: No
--- NOTE | 2024-11-01 14:09 | PCM.POSTANE2 ---
Anesthesia Postop Eval I Sum Postop Eval Completion status Anesthesia document: Postop Eval 1 completed: Yes Anesthesia Postop Eval I Summary Anesthesia Postop Eval I Summary: Anesthesia Postop Eval I: Assessment Summary Airway patent Yes 11/01/24 13:28 [email or web address] Spontaneous unlabored Yes 11/01/24 13:28 [email or web address] [email or web address] respirations Mental status Awake,Calm 11/01/24 13:28 [email or web address] [email or web address] nausea No 11/01/24 13:28 SLEEVE [email or web address] Vomiting No 11/01/24 13:28 [email or web address] Anesthesia Postop Eval I: Fluid Summary Crystalloid volume administer 1,600 11/01/24 13:28 [email or web address] (ml) Colloids volume administered ( ml) Blood Product volume administered (ml) Total IV fluid infused 1,600 11/01/24 13:28 [email or web address] Anesthesia Postop Eval I: Summary Notes Anesthesia Complication No 11/01/24 13:28 [email or web address] Anesthesia Complication Comment: Post-operative progress note Anesthesia: Postop Eval II Evaluation Mental status: Awake Pain Level: 0 nausea: No Vomiting: No
== END 2024-11-01 16:13 | disposition home or self-care (01) ==
LOC: SDC 06:05 → AC 06:05
PROVIDERS: Anesthesiology; PCP Family Medicine; Referring Provider Orthopaedic Surgery; Visit Provider Orthopaedic Surgery
PROC: 0SRC0JZ Replacement of Right Knee Joint with Synthetic Substitute, Open Approach (ICD-10-PCS; CPT 27447; principal; 2024-11-01 07:45)
DX: M17.11 Unilateral primary osteoarthritis, right knee (principal); F31.9 Bipolar disorder, unspecified; I10 Essential (primary) hypertension; M70.41 Prepatellar bursitis, right knee; E78.00 Pure hypercholesterolemia, unspecified; I25.2 Old myocardial infarction; Z79.82 Long term (current) use of aspirin; Z79.899 Other long term (current) drug therapy; Z79.84 Long term (current) use of oral hypoglycemic drugs; Z79.01 Long term (current) use of anticoagulants
CPT/HCPCS: 27447; 64447; 01402; 73560; 82962; 82985; 83036; 83735; 85610; 85730; 86850; 86900; 86901; 87081; 88305; 88311; 93005; 97162; C1776; J2405

== ENCOUNTER → 2024-11-17 | Outpatient (CLI) | payer MEDICARE, OTHER, SELFPAY ==
--- NOTE | 2024-11-17 10:56 | CDU_ITS ---
Reason For Study: Carotid Stenosis Rt. Velocities/BP Lt. Velocities/BP Prox CCA 78.8/17.3 cm/sec. Prox CCA 107.3/32.7 cm/sec. Mid CCA 63.7/14.4 cm/sec. Mid CCA 87.5/27.2 cm/sec. Dist CCA 60.1/12.6 cm/sec. Dist CCA 69.2/21.7 cm/sec. Prox ICA 61.3/18.3 cm/sec. Prox ICA 74.7/21.7 cm/sec. Mid ICA 80.2/23.6 cm/sec. Mid ICA 92.0/23.9 cm/sec. Dist ICA 61.3/18.3 cm/sec. Dist ICA 72.9/14.4 cm/sec. Rt. ICA/CCA = 1.3. Lt. ICA/CCA = 1.1. Prox ECA 190.4/28.8 cm/sec. Prox ECA 144.7/28.3 cm/sec. Rt. Vert. 37.3/14.2 cm/sec. Lt. Vert. 34.9/9.4 cm/sec. Right Extracranial There is homogeneous, smooth atherosclerotic plaque noted in the right common carotid artery. There is heterogeneous, smooth atherosclerotic plaque noted in the right internal carotid artery. The right external carotid artery is not well visualized. Antegrade flow is noted in the right vertebral artery. HX CEA. Left Extracranial There is homogeneous, smooth atherosclerotic plaque noted in the left common carotid artery. There is heterogeneous, irregular atherosclerotic plaque noted in the left internal carotid artery. There is homogeneous, smooth atherosclerotic plaque noted in the left external carotid artery. Antegrade flow is noted in the left vertebral artery. Procedure Carotid Duplex 31322. This is a Carotid Duplex examination using B-mode, color flow and specral Doppler. Exam performed in department. VL/Carotid Duplex Ultrasound Interpretation Summary Mild (<50%) stenosis right extracranial internal carotid. Mild (<50%) stenosis left extracranial internal carotid. Patent and antegrade vertebrals bilaterally. Ordering Physician: Soy Perez Referring Physician: Derrell Salmeron Performed By: Helena Helton RVT and Student
== END | disposition home or self-care (01) ==
LOC: CVS 10:50
PROVIDERS: PCP Family Medicine; Referring Provider Surgery Trauma Surgery; Visit Provider Surgery Trauma Surgery
DX: I65.23 Occlusion and stenosis of bilateral carotid arteries (principal)
CPT/HCPCS: 93880

== ENCOUNTER 2024-12-09 07:30 | Outpatient (RCR) | payer MEDICARE, OTHER, SELFPAY ==
--- NOTE | 2024-11-07 08:53 | HP.PTEVAL_ITS ---
Patient's Visit Information Visit Information Visit Information: NIKO BROWN is a 64 year old M referred to Physical Therapy by Dr. Roly Cih DO with a diagnosis of R TKA, DOS: 11/01/24. Date of Evaluation: 11/04/24 Physical Therapist: Husam Fox DPT Visit Plan Frequency: 3x /Week Duration: 6 Weeks Plan: 1) progressive ROM of R knee to 0-0-120deg. 2) quad activation progressing to functional strengthening. 3) vaso and ice for edema control 4) progress gait to no Ad as able. Subjective Subjective: Pt. is here today for his initial evaluation with diagnosis of R TKA DOS: 11/01/24. Pt. arrives with use of FWW this date. pt. reports having some more pain this time compared to when he had is L knee replaced. Pt. reports 5/10 pain in his R knee today. He reports frequent walking, icing and has been doing some of his exercises. Pt. reports no marked calf pain, no N/T and no dizziness. Pt. is retired, but would like to get back to all household work and traveling without issues. Pt. is having some trouble sleeping as well. Pain R knee: Pain Intensity (Out of 10): 5 Pain Intensity Range: 3 and 7 Objective Objective: POSTURE: Pt. has slight flexed posture with wt. shift to L side. PT. has wide LUIS and uses FWW for balance PALPATION: Pt. has tenderness throughout R knee. Pt. has marked edema, non pitting throughout calf and knee. NEURO: normal throughout, 2+ achilles DTR. Pt. is able to rise on heels and toes without issues. ROM: 0-10-80deg. Pt. has tight B calves and HS. MMT: R knee: flexion 5#, ext 1#; hip: flexion 0#, abd 3#, ext 3#. GAIT: pt. ambulates with FWW, but has decrased TKE during stance phase on R side and decreased knee flexion during swing phase. STAIRS: step to pattern noted loading LLE only with use of B HR. Balance/Special Test Scores TUG Test Time Seconds: 38 WOMAC Total Score: 73 WOMAC Percentatge: 23.9600 Goals Goal 1:: LTG: Pt. to be I with HEP. Goal Time Frame: 4-6 Weeks Goal 2:: STG: pt. to have increased R knee ROM to 0-0-120deg. Goal Time Frame: 2-4 Weeks Goal 3:: LTG: Pt. to ambulate with normal gait pattern with out use of AD. Goal Time Frame: 6-8 Weeks Goal 4:: LTG: Pt. to complete TUG without AD with time less than 10seconds. Goal Time Frame: 6-8 Weeks Goal 5:: LTG: Pt. to have increased RLE strength symmetrical to L side. Goal Time Frame: 6-8 Weeks Goal 6:: LTG: Pt. to have symmetrical girth between bilateral knees indicating decreased edema. Goal Time Frame: 4-6 Weeks Rehabilitation Potential Physical Therapy Diagnosis: Pt. has signs and symptoms consistent with R TKA, DOS: 11/01/24. Pt. has marked hypomobility, weakness, difficulty walking. Pt. would benefit from PT to address the above limitations progressing back to all recreational and household activities as previously. Rehabilitation Potential: Excellent Anticipated Interventions Patient/Client Instruction: Educate patient on: Condition, Plan of Care, Risk Factors and Benefits of Fitness Program For the Purpose of:: To improve decision making, To facilitate caregiver knowle dge, To improve self management, To prevent re-injury, To improve ability to perform tasks related to life management and To improve tolerance to ADL's Therapeutic Exercise to Include: Strength training, Power training, Endurance training, Balance training, Postural training, Flexibilty training, Gait and locomotor training, Passive ROM and Active ROM For the Purpose of:: To decrease pain, To decrease swelling/inflammation, To increase ROM, To improve nutrient delivery to tissue, To increase oxygenation perfusion, To improve muscle performance and motor function, To improve ability to perform ADL's, To improve health of tissue, To decrease soft tissue restriction and To increase flexibility/ROM Manual Therapy Techniques to Include: Scar massage, Mobilization, Passive ROM and Soft tissue mobilization For the Purpose of:: To decrease pain, To increase ROM, To improve nutrient delivery to tissue and To increase oxygenation perfusion Cryotherapy (ice pack, ice massage): Yes Vasopneumatic device: Yes For the Purpose of:: To decrease pain, To increase ROM, To improve nutrient delivery to tissue, To increase oxygenation perfusion, To improve muscle performance and motor function and To improve ability to perform ADL's Text: Thank you for the opportunity to evaluate your patient. For Medicare and Medicare HMO plans, please review the plan of care and approve it. It will need to be FAXED BACK to us at [phone] for Medicare purposes. For Medicare only, by signing this I certify the plan of care. Please let me know if there are questions or concerns regarding this plan of care. Physician Signature: Date:
--- NOTE | 2024-12-02 08:45 | HP.PTREVAL ---
Re-Evaluation Intro: Dr. Roly Chi, DO, It has been my pleasure to treat NIKO BROWN over the last 12 visits for R TKA, DOS: 11/01/24. Please see the progress note below for an update on the physical therapy plan of care! Subjective Subjective: Pt. being seen for his re check this date. Pt. reports that he has been stretching x2 daily. I urged him that this is not enough and needs to be stretching more often at home. Pt. reports understanding and agrees to do more at home. Objective Objective/Function: ROM: 0-5- 101deg with over pressure. MMT: RLE: knee: ext 8#, flexion 4#; LLE: knee: ext 29#, flexion 21# GAIT: Pt. ambulates with FWW for longer distances STAIRS: Pt. is able to complete with 2 HR with reciprocal pattern. He has increased pain with loading RLE during descending with early heel off as well. I talked a lot with samuel about being consistent with stretching, he again reports stretching ~2 per day, I urged him prior to the holidays he has be doing this x5 per day. He reports he plans to start now. I instructed him on consistency with stretching to achieve 120deg of flexion. I warned him that if we do not improve his motion physician may want to manipulate it to get better mobility. He is okay to start walking without AD at home, but in worse conditions outside I want him to use an AD. Pt. reports understanding. He is progressing towards his goals and the current goals still apply. I believe if we have improve his ROM, other issues will start to improve. Plan Plan Plan: I extended his POC x3 a week for 2 weeks, really focus on improving his ROM. We can do some functional strengthening, gait training, but really needs to achieve better motion. Balance/Gait/Functional tests Balance/Special Test Scores Lower Extremity Functional Score: 42 TUG Test Time Seconds: 12.04 Tug Test: <20 sec.=mostly independent 30 Second Chair Rise Test Seconds: 7 WOMAC Total Score: 73 WOMAC Percentage: 23.9600 Goals Goals Goal 1:: LTG: Pt. to be I with HEP. Goal Time Frame: 4-6 Weeks Goal Progress: Progressing Goal 2:: STG: pt. to have increased R knee ROM to 0-0-120deg. Goal Time Frame: 2-4 Weeks Goal Progress: Progressing Goal 3:: LTG: Pt. to ambulate with normal gait pattern with out use of AD. Goal Time Frame: 6-8 Weeks Goal Progress: Progressing Goal 4:: LTG: Pt. to complete TUG without AD with time less than 10seconds. Goal Time Frame: 6-8 Weeks Goal Progress: Progressing Goal 5:: LTG: Pt. to have increased RLE strength symmetrical to L side. Goal Time Frame: 6-8 Weeks Goal Progress: Progressing Goal 6:: LTG: Pt. to have symmetrical girth between bilateral knees indicating decreased edema. Goal Time Frame: 4-6 Weeks Goal Progress: Progressing Anticipated Interventions Anticipated Interventions Patient/Client Instruction: Educate patient on: Condition, Plan of Care, Risk Factors and Benefits of Fitness Program For the Purpose of:: To improve decision making, To facilitate caregiver knowledge, To improve self management, To prevent re-injury, To improve ability to perform tasks related to life management and To improve tolerance to ADL's Therapeutic Exercise to Include: Strength training, Power training, Endurance training, Balance training, Postural training, Flexibilty training, Gait and locomotor training, Passive ROM and Active ROM For the Purpose of:: To decrease pain, To decrease swelling/inflammation, To increase ROM, To improve nutrient delivery to tissue, To increase oxygenation perfusion, To improve muscle performance and motor function, To improve ability to perform ADL's, To improve health of tissue, To decrease soft tissue restriction and To increase flexibility/ROM Manual Therapy Techniques to Include: Scar massage, Mobilization, Passive ROM and Soft tissue mobilization For the Purpose of:: To decrease pain, To increase ROM, To improve nutrient delivery to tissue and To increase oxygenation perfusion Cryotherapy (ice pack, ice massage): Yes Vasopneumatic device: Yes For the Purpose of:: To decrease pain, To increase ROM, To improve nutrient delivery to tissue, To increase oxygenation perfusion, To improve muscle performance and motor function and To improve ability to perform ADL's Re-Evaluation Ending Re-evaluation ending: Please do not hesitate to contact me at [phone] by phone or if you have questions or concerns regarding this new plan of care! Sincerely, Husam Fox DPT
== END 2024-12-09 19:00 | disposition home or self-care (01) ==
LOC: PT 07:30
PROVIDERS: PCP Family Medicine; Referring Provider Orthopaedic Surgery; Visit Provider Orthopaedic Surgery
DX: M17.11 Unilateral primary osteoarthritis, right knee (principal); Z96.651 Presence of right artificial knee joint
CPT/HCPCS: 97016; 97110; 97140; 97161; 97530

== ENCOUNTER → 2025-01-06 | Outpatient (CLI) | payer MEDICARE, OTHER, SELFPAY ==
[2025-01-06 10:32] LABS: Absolute Lymphocyte Count 3.14 X10^3/uL (0.83-4.51); Basophil# 0.17 X10^3/uL; Basophil% 1.3 % (0-1); Eosinophil# 0.35 X10^3/uL; Eosinophils% 2.7 % (0-5); Hematocrit 38.6 % (40-54); Hemoglobin 12.7 g/dL (13.0-16.5); Lymphocyte # 3.14 X10^3/ul (0.83-4.51); Lymphocyte % 24.5 % (19-41); Mean Corp Hgb Conc 32.9 g/dL (32-36); Mean Corpuscular Hgb 28.1 pg (27.0-32.0); Mean Corpuscular Volume 85.4 fL (80-94); Mean Platelet Vol. 9.8 fl (6.2-12.0); Monocyte# 1.07 X10^3/uL; Monocyte% 8.3 % (0-10); NRBC Flagged by Analyzer 0 % (0-5); Neutrophil # 8.03 X10^3/uL (2.7-7.7); Neutrophil % 62.7 % (47-70); Platelet Count 342 K/mm3 (150-450); RBC Distribution Width CV 13.2 % (11.6-14.6); RBC Distribution Width SD 41.3 fl (35.1-43.9); Red Blood Count 4.52 M/mm3 (4.6-6.2); White Blood Count 12.8 K/mm3 (4.4-11.0)
[2025-01-06 10:52] LABS: AST(SGOT) 20 U/L (15-37); Alanine Aminotransfer ALT/SGPT 30 U/L (16-61); Albumin, Serum 3.3 g/dL (3.2-5.0); Alkaline Phosphatase 57 U/L (45-117); Anion Gap 8 (5-15); BUN 13 mg/dL (7-18); BUN/Creat Ratio 14.3 RATIO (10-20); Calcium,Total 8.6 mg/dL (8.5-10.1); Chloride 106 mmol/L (98-107); Cholesterol 89 mg/dL (200); Creatinine, Serum 0.91 mg/dL (0.70-1.30); EST Glomerular Filtration Rate 89 mL/min (>60); Est Glom Filt Rate - Afr Amer 107 mL/min (>60); Globulin 3.4 g/dL (2.2-4.2); Glucose 155 mg/dL (74-106); High Density Lipoprotein 38 mg/dL; Potassium 3.9 mmol/L (3.5-5.1); Protein, Total 6.7 g/dL (6.4-8.2); Sodium Level 139 mmol/L (136-145); Triglycerides 307 mg/dL; Very Low Density Lipoprotein 61 mg/dL (5-40)
[2025-01-06 10:54] LABS: Hemoglobin A1c 6.6 % (3.8-5.6)
== END | disposition home or self-care (01) ==
LOC: MFPLAB 08:39
PROVIDERS: PCP Family Medicine; Referring Provider Family Medicine; Visit Provider Family Medicine
DX: E11.8 Type 2 diabetes mellitus with unspecified complications (principal)
CPT/HCPCS: 36415; 80053; 80061; 83036; 85025

== ENCOUNTER → 2025-01-20 | Outpatient (CLI) | payer MEDICARE, OTHER, SELFPAY ==
[2025-01-20 09:06] LABS: Bacteria 0 SEEN /hpf (None Seen); Mucous, Urine 0 SEEN /hpf (<or=2+); Squamous Epithelial Cells - UA 0 SEEN /hpf (0-5)
[2025-01-20 10:38] LABS: Color, Urine Yellow (Yellow); Glucose, Dipstick Normal (Normal); Ketone-Dipstick Negative (Negative); Leukocyte Esterase-Dipstick Negative /ul (Negative); Nitrite-Dipstick Negative (Negative); Occult Blood-Urine Negative /ul (Negative); Protein-Dipstick 15 mg/dl (Negative); Specific Gravity, Urine 1.015 (1.002-1.030); Urine Bilirubin Dipstick Negative (Negative); Urine Clarity Clear (Clear); Urine Urobilinogen Normal (Normal); Urine pH 6.5 (5.0 - 8.0)
[2025-01-20 11:11] LABS: Red Blood Cells-Urine 0-5 SEEN /hpf (0-5); White Blood Cells 0-5 SEEN /hpf (0-5)
[2025-01-20 12:03] LABS: Microalbumin,Random Urine < 12.0 mg/L (NO RANGE EST.); Microalbumin:Creatinine Ratio UNABLE TO CALCULATE mg/g CRE
== END | disposition home or self-care (01) ==
LOC: MFPLAB 09:03 → LABSPEC 09:04
PROVIDERS: PCP Family Medicine; Referring Provider Family Medicine; Visit Provider Family Medicine
DX: E11.59 Type 2 diabetes mellitus with other circulatory complications (principal); I10 Essential (primary) hypertension
CPT/HCPCS: 81001; 82043; 82570

== ENCOUNTER 2025-02-03 08:30 | Outpatient (RCR) | payer MEDICARE, OTHER, SELFPAY ==
--- NOTE | 2025-01-16 13:37 | HP.PTEVAL ---
Patient's Visit Information Visit Information Visit Information: NIKO BROWN is a 64 year old M referred to Physical Therapy by Dr. Derrell Salmeron MD with a diagnosis of R piriformis syndrome. Date of Evaluation: 01/13/25 Physical Therapist: Husam Fox DPT Visit Plan Frequency: 2x /Week Duration: 4 Weeks Plan: 1) piriformis and IT band stretching R hip. 2) DFM, inhibition of R piriformis 3) core and hip strengthening with gym exercises. Subjective Subjective: Pt. is here today for his initial evaluation with diagnosis of R piriformis syndrome. Pt. reports having increased R gluteal pain/R hip pain with prolonged sitting between 15-20 minutes. Pt. reports with pressure to his R gluteal region he can relieve his pain. He reports minimal to no pain with walking and standing. Pt. is able to exercise with minimal issues. Pt. denies N/T down his legs, but does have some peripheral neuropathy. Pt. did recently have a R TKA. Pt. is sleeping well. Pt. is hopeful to reduce symptoms in order to get back to all recreational and household activities. Pain R gluteal region: Pain Intensity (Out of 10): 0 Pain Intensity Range: 0 and 4 Objective Objective: POSTURE: Pt. has normal in stance. Pt. has normal iliac crest heights. Pt. frank slight slump posture. PALPATION: Pt. has no tenderness at anterior aspect of R greater trochanter, did did have some posterior greater trochanter pain. Pt. has increased pain at piriformis. NEURO: Pt. has normal sensation in BLEs. Pt. is able to rise on heels and toes without issues. ROM: Pt. has normal L hip ROM without issues. R hip: decreased ER at 9d0eg to 45deg (increase in gluteal symptoms), IR normal flexion and extension normal. Pt. has tight IT band and HS as well on L side. Normal lumbar ROM without increase in symptoms. MMT: PT. has good strength throughout BLEs. No marked weakness, except some slight weakness 4+/5 bilateral hip abd, poor core strength. GAIT: pt. has fairly normal gait patterb. Pt. reports no major increase in symptoms with gait. Pt. reports no pain with gait. Pt's major issues is with prolonged sitting. Special Tests R Hip Scour: Negative R Hip MAHENDRA - Intraarticular Pathology: Negative R Hip FADDIR - Labrum: Negative R Hip Impingement Provocation - Labrum: Negative R Hip Trendelenberg - Glut Medius: Negative R Hip Lizette - IT Band: Positive Balance/Special Test Scores Lower Extremity Functional Score: 72 Goals Goal 1:: LTG: Pt. to be I with HEP. Goal Time Frame: 4-6 Weeks Goal 2:: STG: Pt. to be able to sit for 30' with out increase in R hip pain. Goal Time Frame: 2-4 Weeks Goal 3:: LTG: Pt. to have symmetrical B hip ER without increase in symptoms. Goal Time Frame: 4-6 Weeks Goal 4:: LTG: pt. to have negative obers test of R hip indicating increased IT band length. Goal Time Frame: 4-6 Weeks Goal 5:: LTG: Pt. to complete all gym related activities without increase in R hip pain. Rehabilitation Potential Physical Therapy Diagnosis: Pt. has signs and symptoms consist with R piriformis syndrome. Movements of his lumbar spine did not effect his symptoms, but had marked tightness with ER and felt pain with palpation of the same region. Pt. did not have any more distal symptoms. Pt. would benefit from PT to address his R hip tightness and It band tightness in order to increase tolerance to all ADls and activites. Rehabilitation Potential: Excellent Anticipated Interventions Patient/Client Instruction: Educate patient on: Condition, Plan of Care, Risk Factors and Benefits of Fitness Program For the Purpose of:: To foster healthy habits, To improve decision making, To facilitate caregiver knowledge, To improve self management, To prevent re-injury and To improve ability to perform tasks related to life management Therapeutic Exercise to Include: Strength training, Power training, Endurance training, Postural training, Flexibilty training, Passive ROM, Active ROM and Dynamic Lumbar Stabilization For the Purpose of:: To decrease pain, To increase ROM, To improve nutrient delivery to tissue, To increase oxygenation perfusion, To improve muscle performance and motor function, To improve ability to perform ADL's, To improve health of tissue and To decrease soft tissue restriction Manual Therapy Techniques to Include: Trigger point massage and Soft tissue mobilization For the Purpose of:: To decrease pain, To increase ROM, To improve nutrient delivery to tissue, To increase oxygenation perfusion, To improve ability to perform ADL's, To improve health of tissue, To decrease soft tissue restriction and To increase flexibility/ROM Text: Thank you for the opportunity to evaluate your patient. For Medicare and Medicare HMO plans, please review the plan of care and approve it. It will need to be FAXED BACK to us at [phone] for Medicare purposes. For Medicare only, by signing this I certify the plan of care. Please let me know if there are questions or concerns regarding this plan of care. Physician Signature: Date:
--- NOTE | 2025-02-03 08:55 | HP.PTDCSUM ---
Discharge Summary D/C summary: It has been my pleasure to treat NIKO BROWN referred by Dr. Derrell Salmeron MD, with the diagnosis of R piriformis syndrome for a total of 6 visit(s). Discharge Date: 02/03/25 Please see the following information for a summary of their discharge status. Subjective Subjective: Pt. reports feeling better today. He was able to go and do some mulching without much issues. Pt. reports no major issues noted today. Pt. reports being 85% better overall. Pain R gluteal region: Pain Intensity (Out of 10): 0 Overall Improvement % Improvement: 85 Objective Objective/Function: Pt. has good ROM of B hips, still a little tight with HS and with hip ER bilaterally. Pt. has - obers test with BLEs. PT. has symmetrical strength and powerful throughout BLEs. gait and stair negotiation is normal without increase in symptoms. I talked with samuel about continuing to stretch and complete hip and core strengthening exercises 2-3 times per week. Pt. consents. Overall doing well, samuel will be DC from PT at this point in time. Goals Goal 1:: LTG: Pt. to be I with HEP. Goal Progress: Goal Met Goal 2:: STG: Pt. to be able to sit for 30' with out increase in R hip pain. Goal Progress: Goal Met Goal 3:: LTG: Pt. to have symmetrical B hip ER without increase in symptoms. Goal Progress: Goal Met Goal 4:: LTG: pt. to have negative obers test of R hip indicating increased IT band length. Goal Progress: Goal Met Goal 5:: LTG: Pt. to complete all gym related activities without increase in R hip pain. Goal Progress: Progressing Plan Plan: Pt. to be DC from PT at this point in time. D/C Information d/c sentence: If there are questions or concerns regarding this patient's physical therapy, please feel free to call me at [phone]. Thank you for the referral of this patient. Sincerely, Husam Rehman Sipos, DPT Balance/Gait/Functional tests Balance/Special Test Scores Lower Extremity Functional Score: 75 Improvement % Improvement: 85
== END 2025-02-03 10:40 | disposition home or self-care (01) ==
LOC: PT 08:30
PROVIDERS: PCP Family Medicine; Visit Provider Family Medicine
DX: G57.01 Lesion of sciatic nerve, right lower limb (principal)
CPT/HCPCS: 97110; 97161; 97530

== ENCOUNTER → 2025-03-27 | Outpatient (CLI) | payer MEDICARE, OTHER, SELFPAY ==
[2025-03-27 11:21] LABS: PSA,Total - Annual Screen 2.51 ng/mL (0.02-4.00)
== END | disposition home or self-care (01) ==
LOC: MFPLAB 09:07
PROVIDERS: PCP Family Medicine; Visit Provider Nurse Practitioner Family
DX: Z12.5 Encounter for screening for malignant neoplasm of prostate (principal)
CPT/HCPCS: 36415; 84153; G0103

== ENCOUNTER → 2025-06-30 | Outpatient (CLI) | payer MEDICARE, OTHER, SELFPAY ==
[2025-06-30 16:41] LABS: Lithium 0.47 mmol/L (0.60-1.20)
== END | disposition home or self-care (01) ==
LOC: LAB 12:01
PROVIDERS: PCP Family Medicine; Referring Provider Nurse Practitioner Psychiatric/Mental Health; Visit Provider Nurse Practitioner Psychiatric/Mental Health
DX: Z79.899 Other long term (current) drug therapy (principal)
CPT/HCPCS: 36415; 80178

== ENCOUNTER → 2025-07-13 | Outpatient (CLI) | payer MEDICARE, OTHER, SELFPAY ==
[2025-07-13 18:01] LABS: Hematocrit 38.3 % (40-54); Hemoglobin 12.9 g/dL (13.0-16.5); Immature Granulocytes Count 0.090 X10^3/uL (0.0-0.0); Mean Corp Hgb Conc 33.7 g/dL (32-36); Mean Corpuscular Volume 89.9 fL (80-94); Mean Platelet Vol. 10.4 fl (6.2-12.0); NRBC Flagged by Analyzer 0 % (0-5); Platelet Count 273 K/mm3 (150-450); RBC Distribution Width CV 13.2 % (11.6-14.6); RBC Distribution Width SD 43.3 fl (35.1-43.9); Red Blood Count 4.26 M/mm3 (4.6-6.2); White Blood Count 11.1 K/mm3 (4.4-11.0)
[2025-07-13 18:28] LABS: AST(SGOT) 23 U/L (<=37); Alanine Aminotransfer ALT/SGPT 23 U/L (<=46); Albumin, Serum 4.0 g/dL (3.4-4.8); Alkaline Phosphatase 57 U/L (40-129); Anion Gap 13 (5-15); BUN 16 mg/dL (4-19); BUN/Creat Ratio 14.5 RATIO (10-20); Calcium,Total 9.2 mg/dL (7.6-11.0); Carbon Dioxide 25.2 mmol/L (21.0-32.0); Chloride 99 mmol/L (98-108); Cholesterol 121 mg/dL (<=200); Globulin 2.4 g/dL (2.2-4.2); Glucose 141 mg/dL (70-99); Low Density Lipoprotein Calc. 32 mg/dL; Potassium 4.6 mmol/L (3.3-5.1); Triglycerides 268 mg/dL; Very Low Density Lipoprotein 54 mg/dL (5-40); cholesterol:hdl ratio screen 3.46
== END | disposition home or self-care (01) ==
LOC: MFPLAB 11:51
PROVIDERS: PCP Family Medicine; Referring Provider Family Medicine; Visit Provider Family Medicine
DX: E11.59 Type 2 diabetes mellitus with other circulatory complications (principal)
CPT/HCPCS: 36415; 80053; 80061; 83036; 84443; 85025

== ENCOUNTER → 2025-07-19 | Outpatient (CLI) | payer MEDICARE, OTHER, SELFPAY ==
--- NOTE | 2025-07-19 07:44 | ART_ITS ---
Reason For Study Reason For Study: PVD Procedure A bilateral lower extremity continuous wave Doppler with analog waveform analysis,segmental pressures,and ankle brachial indexes without exercise. Left Segmental Pressures Left brachial= 107mmHg. Left posterior tibial artery = 154mmHg. Left dorsalis pedis artery = 141mmHg. Left digit = 124 mmHg. The left posterior tibial artery waveforms are triphasic. The left dorsalis pedis waveforms are triphasic. Right Segmental Pressures Right brachial= 106mmHg. Right posterior tibial artery = 141mmHg. Right dorsalis pedis artery = 132mmHg. Right digit = 161 mmHg. The right posterior tibial artery waveforms are triphasic. The right dorsalis pedis waveforms are triphasic. Indices The right ankle brachial index by the posterior tibial artery is 1.32. The right ankle brachial index by the dorsalis pedis is 1.23. The right digital-brachial index is 1.50. The left ankle brachial index by the posterior tibial artery is 1.44. The left ankle brachial index by the dorsalis pedis is 1.32. The left digital-brachial index is 1.16. VL/Lower Ext Art Exam w/o Exercis Interpretation Summary Triphasic Doppler waveforms are noted at ankle level bilaterally. Pulse-volume recordings appear satisfactory at all levels bilaterally. The resting right ankle-brachial index is normal. The resti ng left ankle-brachial index is supra- normal. Digital-brachial indices are normal bilaterally. There is evidence of arterial calcification at ankle level on the left. There i s no evidence of significant arterial occlusive disease in the lower extremities bilaterally. Ordering Physician: Awais Law Referring Physician: Derrell Salmeron Performed By: Ramón Thomas RVT and Student
== END | disposition home or self-care (01) ==
LOC: CVS 07:42
PROVIDERS: PCP Family Medicine; Referring Provider Podiatrist; Visit Provider Podiatrist
DX: I73.9 Peripheral vascular disease, unspecified (principal)
CPT/HCPCS: 93923

== ENCOUNTER → 2025-07-20 | Outpatient (CLI) | payer MEDICARE, OTHER, SELFPAY ==
[2025-07-20 15:22] LABS: Mucous, Urine 0 SEEN /hpf (<or=2+); Red Blood Cells-Urine 0 SEEN /hpf (0-5); Squamous Epithelial Cells - UA 0 SEEN /hpf (0-5)
[2025-07-20 21:40] LABS: Color, Urine Straw (Yellow); Glucose, Dipstick Normal (Normal); Ketone-Dipstick Negative (Negative); Leukocyte Esterase-Dipstick Negative /ul (Negative); Nitrite-Dipstick Negative (Negative); Occult Blood-Urine Negative /ul (Negative); Protein-Dipstick Negative (Negative); Specific Gravity, Urine 1.005 (1.002-1.030); Urine Bilirubin Dipstick Negative (Negative)
== END | disposition home or self-care (01) ==
LOC: MFPLAB 15:20 → LABSPEC 15:25
PROVIDERS: PCP Family Medicine; Referring Provider Family Medicine; Visit Provider Family Medicine
DX: E11.59 Type 2 diabetes mellitus with other circulatory complications (principal)
CPT/HCPCS: 81001

== ENCOUNTER 2025-08-25 06:48 | Day surgery (SDC) | payer MEDICARE, OTHER, SELFPAY ==
--- NOTE | 2025-08-22 16:47 | PAT.ANESEVAL ---
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 When Was Last Pacemaker Check QUESTION #4 FULL TEXT: You/Your Family Experience fever (hyperthermia) with Anesthesia Last Oral Intake Last Oral intake: Last Oral Intake NPO since Meds taken in AM with sips of water? Meds patient instructed to take am of surgery PONV PONV - hand silvering supervisor: PONV - hand silvering supervisor Female No 08/22/25 10:21 HX of Motion Sickness No 08/22/25 10:21 HX of N/V After Surgery No 08/22/25 10:21 Non-Smoker Yes 08/22/25 10:21 Duration of Surgery greater No 08/22/25 10:21 than 60 minutes Number of Risk Factors 1 08/22/25 10:21 PONV Score Low Risk 08/22/25 10:21 Height & Weight Height & Weight: Anesthesia: Height & Weight Height 6 ft 1 in 07/26/25 08:29 Respiratory Assessment Respiratory Assessment - hand silvering supervisor: Respiratory Tract Infection Hx - hand silvering supervisor Hx Respiratory Tract Infection No 08/22/25 10:21 STOP Sleep Apnea STOP Sleep Apnea - hand silvering supervisor: STOP Sleep Apnea - hand silvering supervisor Hx Hypertension Yes: CONTROLLED WITH MED 08/22/25 10:21 Hx Sleep Apnea No 08/22/25 10:21 CPAP No 08/22/25 10:21 BIPAP Do you snore loudly (louder No 08/22/25 10:21 than talking or can be heard Do you often feel tired/ No 08/22/25 10:21 fatigued/ sleepy during daytime? Has anyone observed you stop No 08/22/25 10:21 breathing during sleep? STOP Results Negative 08/22/25 10:21 QUESTION #5 FULL TEXT : Do you snore loudly (louder than talking or can be heard through closed doors)? Tobacco Use History Tobacco Use History - hand silvering supervisor: Tobacco Use History - hand silvering supervisor Tobacco Use Smoking Status Never smoker 08/22/25 10:21 Hx Tobacco Use No 08/22/25 10:21 Years Smoking Packs Smoked per Day Smoking Cessation Date was within the last 15 years Hx Smoking Cessation Date Hx Smoking Cessation Counseling Hematologic Medial History Hematologic Hx - hand silvering supervisor: Hematologic Medical Hx - documentation lead Hx of Blood Transfusion No 08/22/25 10:21 Hx of Transfusion in last 3 No 08/22/25 10:21 Months Date of Last Transfusion (if within last 3 months) Ever experience any problems No 08/22/25 10:21 with transfusion(s)? Specify any problems Hx of Preganancy in last 3 N/A 08/22/25 10:21 Months Nurse Filling Out Transfusion [email or web address] 08/22/25 10:21 & Questions: Date: 08/22/25 08/22/25 10:21 Time: 10:23 08/22/25 10:21 Patient unable to answer at this time (ie. confused, unrespo /Reproduction History /Reproductive History - hand silvering supervisor: /Reproductive Hx- hand silvering supervisor Hx Now Gestational Age (in weeks): EDC: Hx Hx Para Hx Section SAB No 08/22/25 10:21 PFSH Medical History (Updated 08/22/25 @ 10:27 by Russ Connor) Marijuana use Gastric reflux URI (upper respiratory infection) Carotid stenosis Hematoma of neck Wears glasses Alcohol use Bipolar disorder High cholesterol Seizures Non-smoker History of echocardiogram History of heart attack Hypertension Cardiology follow-up encounter History of stress test Osteoarthritis of left knee Carotid stenosis, bilateral Shortness of breath Bipolar 1 disorder Essential hypertension Pharyngitis Acute bronchitis Chest pain Shoulder pain Arthritis Home Medications ?Medication ?Instructions ?Recorded ?Last Taken ?Type amlodipine 10 mg tablet 10 mg PO DAILY blood pressure 08/07/20 10/31/24 History clopidogrel 75 mg tablet (Plavix) 75 mg PO DAILY BLODD THINNER 10/16/21 08/19/25 History accu-check fe plus See Rx Instructions .Route 09/10/22 Unknown History .COMPLEX DIABETES metoprolol succinate 50 mg 100 mg PO DAILY heart 09/10/22 10/31/24 History tablet,extended release 24 hr losartan 100 mg tablet (Cozaar) 100 mg PO DAILY BP 11/26/22 10/31/24 History metformin 500 mg tablet,extended 500 mg PO BID DIABETES 11/26/22 10/31/24 History release 24 hr aspirin 81 mg tablet,delayed 81 mg PO DAILY 09/03/23 08/19/25 History release lactulose 10 gram/15 mL oral 15 ml PO DAILY Tremor #1,350 mL 03/01/25 Unknown Rx solution tizanidine 4 mg tablet 4 mg PO TID PRN muscle spasticity; 03/01/25 Unknown Rx muscle pain #270 tabs lithium carbonate 300 mg capsule 900 mg (3 x 300 mg) PO .COMPLEX 07/13/25 Unknown Rx DEPRESSION 90 days #270 caps trazodone 50 mg tablet 100 mg (2 x 50 mg) PO QHS PRN 07/13/25 Unknown Rx sleep #180 tabs amitriptyline 100 mg tablet 100 mg PO QHS 07/26/25 Unknown History biotin 2,500 mcg capsule 2,500 mcg PO QDAY 07/26/25 Unknown History meloxicam 15 mg tablet 15 mg PO QDAY 07/26/25 Unknown History pravastatin 20 mg tablet 20 mg PO QHS 07/26/25 Unknown History rabeprazole 20 mg tablet,delayed 20 mg PO QAM 07/26/25 Unknown History release omeprazole 40 mg capsule,delayed 40 mg PO DAILY 08/22/25 Unknown History release Allergy/AdvReac Type Severity Reaction Status Date / Time No Known Allergies Allergy Verified 08/22/25 10:13 Family History Father Myocardial infarction Hypertension Alcoholism Mother Cancer Diabetes Brother Heart disease Hypertension Alcoholism Cancer prostate Grandfather Myocardial infarction CVA (cerebral vascular accident) Carotid arterial disease Surgical History (Updated 08/22/25 @ 10:27 by Russ Connor) History of carotid endarterectomy History of right-sided carotid endarterectomy Hx of transurethral resection of prostate Hx of total knee arthroplasty History of colonoscopy (~10/2022) History of bursectomy History of arthroscopy of knee History of carpal tunnel release Social History (Updated 07/26/25 @ 08:37 by Evon Pan) Smoking Status: Never smoker alcohol intake: former substance use type: marijuana Audit: Pertinent Findings Pertinent Findings EKG Perinent findings: 10/13/2024. Sinus bradycardia at 54 bpm. Possible inferior infarct, age undetermined. Stress test pertinent findings: 06/18/2022. EF of 62%. No areas of reversibility to suggest ischemia. No previous infarct. Echo (EF%) pertinent findings: 08/22/2020. EF of 60%. No aortic stenosis noted. Recommendation Anesthesia Recommendation Anesthesia recommendation: OPTIMIZED for anesthesia
[2025-08-25] VITALS (8 sets, daily range): BP systolic 120–133; BP diastolic 68–79; PULSE 61–66; RESP 16–18; TEMP 36.3–36.6; O2SAT 94–98; BMI 35.2
--- OUTSIDE RECORDS SUMMARY | 2025-08-25 07:06 | XMS RPT_ITS | CCD ---
Author Organization [facility] CliniSyms Care Team Providers Care Sausage Tier Name Role Phone Dr. Silverio Salmeron Primary Care Provider Dr. Silverio Salmeron Referring Provider Dr. Randall Gilbert Attending Provider Dr. Randall Gilbert Other Provider Dr. Roly Chi Attending Provider Dr. Roly Chi Referring Provider Dr. Roly Chi Other Provider 1([phone] Soy Rader Other Provider Trudy ETIENNE, PA Alan Attending Provider Dr. Gavin Conteh Attending Provider Unavailable Primary Care Provider Silverio Crawford Primary Care Provider Dr. Silverio Salmeron Primary Care Provider [phone] Dr. Silverio Salmeron Referring Provider Dr. Roly Chi Attending Provider Martinez ETIENNE, PA Cam Attending Provider Dr. Silverio Salmeron Primary Care Provider [phone] Dr. Silverio Salmeron Referring Provider Dr. Silverio Salmeron Other Provider Dr. Gavin Conteh Attending Provider Faustina RICHARDSON, TRUCK DRIVER-C Zafar Attending Provider Dr. Randall Gilbert Attending Provider [phone] Dr. Hudson Almanzar Attending Provider Dr. Silverio Salmeron Primary Care Provider Dr. Silverio Salmeron Referring Provider Dr. Randall Gilbert Referring Provider Dr. Silverio Salmeron Primary Care Provider Dr. Silverio Salmeron Referring Provider Dr. Silverio Salmeron Other Provider Dr. Gavin Conteh Attending Provider [phone] Faustina RICHARDSON, CONC Zafar Attending Provider Dr. Randall Gilbert Attending Provider Dr. Randall Gilbert Referring Provider Dr. Hudson Almanzar Attending Provider Dr. Soy Perez Attending Provider [phone] Silverio Salmeron Primary Care Provider PROVIDER, UNKNOWN Referring Unavailable SILVERIO SALMERON Primary Care UnavailDELMER Hogan Attending Unavailable DELMER GARDUNO Admitting Unavailable SILVERIO SALMERON Primary Care UnavailDr. Silverio Jerez Primary Care Provider Dr. Silverio Salmeron Referring Provider Referred, Self Referring Provider Unavailable Dr. Randall Gilbert Other Provider Dr. Silverio Salmeron Primary Care Provider Dr. Silverio Salmeron Referring Provider Dr. Roly Chi Attending Provider Dr. Gavin Conteh Attending Provider [phone] Randall Gilbert Admit Provider Carlos Storey DO Unavailable Dr. Alicia Kaminski Attending Provider IRENE Dumont Attending Provider CARLOS STOREY Referring Unavailable SILVERIO SALMERON Primary Care Unavailabl CARLOS Bryant Referring Unavailable LAURA, SILVERIO BATISTA Primary Care Unavailabl Dr. Silverio Hernandez Primary Care Provider Dr. Silverio Salmeron Referring Provider Cenarcisa, Dr. Randall Fink Attending Provider Dr. Hudson Almanzar Attending Provider CeDr. Randall brewster Referring Provider Dr. Silverio Salmeron Primary Care Provider Dr. Silverio Salmeron Referring Provider Cebusharita, Dr. Randall Fink Attending Provider Dr. Hudson Almanzar Attending Provider Referred, Self Referring Provider Unavailable Dr. Randall Gilbert Referring Provider CebuDr. Randall sheriff Other Provider Dr. Roly Chi Attending Provider Dr. Gavin Conteh Attending Provider Dr. Alicia Kaminski Attending Provider Cenarcisa, Dr. Randall Fink Admit Provider IRENE Dumont Attending Provider Dr. Silverio Salmeron Primary Care Provider Dr. Silverio Salmeron Referring Provider CeDr. Randall brewster Referring Provider Dr. Randall Gilbert Attending Provider Dr. Randall Gilbert Other Provider Dr. Hudson Almanzar Attending Provider Dr. Silverio Salmeron Primary Care Provider Dr. Silverio Salmeron Referring Provider Dr. Roly Chi Attending Provider Dr. Gavin Conteh Attending Provider [phone] Silverio Salmeron Primary Care Provider [phone] Dr. Silverio Salmeron Primary Care Provider [phone] Dr. Silverio Salmeron Referring Provider Dr. Hudson Almanzar Attending Provider Madi ETIENNE, LOWELL Anderson Attending Provider Dr. Roly Chi Attending Provider [phone] Dr. Gavin Conteh Attending Provider [phone] Hudson Almanzar Referring Provider [phone] Soy Perez Attending Provider [phone] Silverio Salmeron Primary Care Provider [phone] Dr. Silverio Salmeron Referring Provider Dr. Hudson Almanzar Attending Provider Silverio Salmeron MD Primary Care Provider SILVERIO SALMERON Primary Care Unavailable CARLOS STOREY Referring Unavailable CARLOS STOREY Attending Unavailable CARLOS STOREY Referring Unavailable SILVERIO SALMERON Primary Care Unavailable SILVERIO SALMERON Primary Care Unavailable CARLOS STOREY Attending Unavailable SILVERIO SALMERON Primary Care Unavailable SILVERIO SALMERON Primary Care Unavailable Roly Chi Attending Unavailable Roly Chi Referring Unavailable Silverio Salmeron Primary Care Unavailable Evon Garcia NP Attending Unavailable Sivlerio Salmeron Primary Care Unavailable Silverio Salmeron Primary Care Unavailable Silverio Salmeron Attending Unavailable Gavin Conteh Attending Unavailable Silverio Salmeron Primary Care Unavailable Silverio Salmeron Primary Care Unavailable Silverio Salmeron Attending Unavailable Silverio Salmeron Referring Unavailable Roly Chi Attending Unavailable Roly Chi Referring Unavailable Silverio Salmeron Primary Care Unavailable Luke Odell Consulting Unavailable Roly Chi Attending Unavailable Roly Chi Referring Unavailable SchinSilverio florian E Primary Care Unavailable SchinSilverio florian E Attending Unavailable SchinSilverio florian E Referring Unavailable SchinSilverio florian E Primary Care Unavailable SchinSilverio florian E Attending Unavailable Schinanival, Silverio E Primary Care Unavailable Schinanival, Silverio E Referring Unavailable Roly Chi Attending Unavailable SchinSilverio florian E Primary Care Unavailable Schinanival, Silverio E Primary Care Unavailable Jyoti Salgado Attending Unavailable Silverio Marks NP Attending Unavailable Schinanival, Silverio E Referring Unavailable Schinner, Silverio E Primary Care Unavailable Nathen Vargas Attending Unavailable SchinSilverio florian E Referring Unavailable Schinanival, Silverio E Primary Care Unavailable Jyoti Salgaod Attending Unavailable SchSilverio doss Primary Care Unavailable SchSilverio doss E Referring Unavailable SchSilverio doss E Attending Unavailable SchSilverio doss E Primary Care Unavailable Schromario, Silverio E Referring Unavailable SchSilverio doss E Attending Unavailable Silverio Salmeron E Primary Care Unavailable Awais Law Attending Unavailable Awais Law Referring Unavailable SchSilverio doss E Primary Care Unavailable SchSilverio doss E Primary Care Unavailable Jyoti Saglado Attending Unavailable Jyoti Salgado Referring Unavailable SchSilverio doss Referring Unavailable Roly Chi Attending Unavailable Silverio Salmeron E Primary Care Unavailable Hudson Almanzar Attending Unavailable Hudson Almanzar Referring Unavailable SchSilverio doss E Primary Care Unavailable SchSilverio doss E Referring Unavailable Stephanie Kinney Attending Unavailable Silverio Salmeron E Primary Care Unavailable Soy Perez Attending Unavailable Soy Perez Referring Unavailable SchSilverio doss E Primary Care Unavailable Silverio Salmeron E Referring Unavailable Roly Chi Attending Unavailable Silverio Salmeron E Primary Care Unavailable Nathen Vargas Attending Unavailable Silverio Salmeron E Primary Care Unavailable Hudson Almanzar Attending Unavailable Hudson Almanzar Referring Unavailable Silverio Salmeron E Primary Care Unavailable Hudson Almanzar Attending Unavailable Hudson Almanzar Referring Unavailable SchSilverio doss E Primary Care Unavailable Devonte Benitez Attending Unavailable Silverio Salmeron E Referring Unavailable Schromario, Silverio E Primary Care Unavailable Luke Odell Unavailable Roly Chi Attending Unavailable Roly Chi Referring Unavailable SchSilverio doss E Primary Care Unavailable Roly Chi Consulting Unavailable Africa Garrido Attending Unavailable Roly Chi Referring Unavailable Silverio Salmeron Primary Care Unavailable Soy Perez Attending Unavailable Soy Perez Referring Unavailable Silverio Salmeron Primary Care Unavailable Medications Current Medications Medication Drug Class(es) Dates Sig (Normalized) Sig (Original) accu-check fe plus (20 sources) Start: 09-10-2022 accu-check fe plus Active 0 .ROUTE .COMPLEX September 10, 2022 12:00am ACCU-CHECK Start: 09-10-2022 accu-check arash va plus Active 0 .ROUTE .COMPLEX September 09, 2022 11:00pm ACCU-CHECK Start: 09-10-2022 accu-check arash va plus Active 0 .ROUTE .COMPLEX September 09, 2022 11:00pm IMPLANT Start: 09-10-2022 accu-check arash va plus Active ID September 09, 2022 11:00pm Start: 09-10-2022 accu-check arash va plus Active ID September 10, 2022 12:00am acetaminophen 500 mg oral capsule (20 sources) Start: 09-10-2022 take 500 mg by mouth every six hours Acetaminophen Active 500 MG PO EVERY 6 HOURS September 10, 2022 12:00am Start: 11-19-2021 End: 01-15-2022 take 1000 mg by mouth every six hours as needed Acetaminophen Discontinued 1000 MG PO EVERY 6 HOURS NEEDED 100 November 19, 2021 1:00am January 15, 2022 11:30am take 2 tablets by mo [facility] every six hours as needed acetaminophen (TYLENOL) 500 mg tablet Take 1,000 mg by mouth every 6 hours as needed. Active Comment on above: Take 1,000 mg by yenny every 6 hours as needed. [id number] 200 actuat albuterol 0.09 mg/actuat metered dose inhaler (3 sources) beta2-Adrenergic Agonist Start: 023 take 1 puff(s) by inhalation every four hours Albuterol Sulfate Active 2 PUFF INHALATION Q4H July 14, 2023 12:00am amitriptyline hydrochloride 100 mg oral tablet (20 sources) Tricyclic Antidepressant Start: 023 take 100 mg by mouth at bedtime Amitriptyline Active 100 MG PO AT BEDTIME September 03, 2023 12:00am Start: 07-14-2023 End: 07-14-2023 take 75 mg by mouth once daily Amitriptyline Discontin ued 75 MG PO DAILY July 14, 2023 4:34pm July 14, 2023 4:49pm Start: 07-14-2023 End: 07-14-2023 take 25 mg by mouth once daily Amitriptyline Discontin ued 25 MG PO DAILY July 14, 2023 12:00am July 14, 2023 4:36pm Start: 04-08-2023 End: 09-03-2023 take 75 mg by mouth once daily Amitriptyline Discontin ued 75 MG PO DAILY July 15, 2023 10:36pm September 03, 2023 8:31am Start: 01-19-2023 End: 04-08-2023 take 50 mg by mouth at bedtime Amitriptyline Discontin ued 50 MG PO AT BEDTIME January 19, 2023 1:00am April 08, 2023 12:49pm Start: 10-29-2022 End: 01-19-2023 take 25 mg by mouth at bedtime Amitriptyline Discontin ued 25 MG PO AT BEDTIME November 26, 2022 12:18pm January 19, 2023 10:26pm Start: 09-22-2022 End: 10-29-2022 take 10 mg by mouth at bedtime Amitriptyline Discontin ued 10 MG PO AT BEDTIME September 22, 2022 12:00am October 29, 2022 4:43pm Comment on above: Take 25 mg by mouth daily at bedtime. amLODIPine 10 mg oral tablet (20 sources) Dihydropyridine Calcium Channel Rajani Start: 0 take 10 mg by mouth once daily Amlodipine Active 10 MG PO DAILY August 07, 2020 12:00am Comment on above: Take 10 mg by mouth once daily. aspirin 81 mg delayed release oral tablet (20 sources) Platelet Aggregation Inhibitor, Nonsteroidal Anti-inflammatory Drug Start: 3 take 81 mg by mouth once daily Aspirin Active 81 MG PO DAILY September 03, 2023 12:00am Start: 10-16-2021 End: 09-10-2022 take 81 mg by mouth once daily Aspirin Discontinued 81 MG PO DAILY October 16, 2021 1:00am September 10, 2022 10:22am Comment on above: Take 81 mg by mouth once daily. atorvastatin 40 mg oral tablet (20 sources) HMG-CoA Reductase Inhibitor Start: 08-09-20 take 40 mg by mouth at bedtime Atorvastatin Active 40 MG PO AT BEDTIME July 14, 2023 12:00am Comment on above: Take 40 mg by mouth once daily. clopidogrel 75 mg oral tablet (20 sources) [id number] Platelet Inhibitor Start: 10-16-20 21 take 1 tablet by mouth once daily Clopidogrel (Plavix) 75 mg tablet Active 75 MG PO DAILY October 16, 2021 1:00am Comment on above: Take 75 mg by mouth once daily. cyclobenzaprine hydrochloride 10 mg oral tablet (20 sources) Muscle Relaxant Start: 09-03-20 23 take 10 mg by mouth three times daily Cyclobenzaprine Active 10 MG PO THREE TIMES A DAY September 03, 2023 12:00am Start: 09-10-2022 End: 05-03-2025 take 1 tablet by mouth every eight hours cyclobenzaprine (FLEXERIL) 5 mg tablet Take 5 mg by mouth every 8 hours. 09/10/2022 05/03/2025 Discontinued Start: 09-10-2022 take 5 mg by mouth t hree times daily Cyclobenzaprine Active 5 MG PO THREE TIMES A DAY September 09, 2022 11:00pm Comment on above: Take 5 mg by mouth e very 8 hours. dutasteride 0.5 mg oral capsule (20 sources) 5-alpha Reductase Inhibitor Start: 2 take 1 capsule by mouth once daily Dutasteride (Avodart) 0.5 mg capsule Active 0.5 MG PO DAILY September 10, 2022 12:00am hydrALAZINE hydrochloride 50 mg oral tablet (7 sources) Arteriolar Vasodilator Start: 3 take 100 mg by mouth twice daily Hydralazine Active 100 MG PO TWICE A DAY September 03, 2023 8:15am Start: 07-14-2023 End: 09-03-2023 take 50 mg by mouth twice daily Hydralazine Discontinu ed 50 MG PO TWICE A DAY July 14, 2023 12:00am September 03, 2023 8:20am take 2 tablets by mo uth three times daily hydrALAZINE (APRESOLINE) 50 mg tablet Take 100 mg by mouth three times a day. Active hydroCHLOROthiazide 25 mg oral tablet (20 sources) Thiazide Diuretic Start: 06-18-2021 take 25 mg by mouth once daily Hydrochlorothiazide Active 25 MG PO DAILY June 18, 2021 12:00am Comment on above: Take 25 mg by mouth once daily. lithium carbonate 300 mg oral capsule (20 sources) Start: 11-26-2022 End: 09-03-2023 take 1 tablet by mouth in the morning, then take 2 tablets by mouth at bedtime [place] Carbonate Active 600 MG PO AT BEDTIME September 03, 2023 8:16am Take one tab in Am and Take 2 tabs at HS Start: 11-26-2022 End: 07-14-2023 take 1 tablet by mouth in the morning [place] Carbonate Active 300 MG PO 799July 14, 2023 4:23pm Take 1 tab 300mg in the Am and Take 2 tabs 600mg in the HS Start: 09-22-2022 take 2 tablets by mo uth once daily in the morning, then take 1 tablet by mouth once daily in the evening [place] Carbonate Active 300 MG PO THREE TIMES A DAY September 22, 2022 5:01pm 2 tablets PO qAM and 1 tablet qPM Start: 08-07-2020 End: 09-22-2022 take 600 mg by mouth twice daily [place] Carbonate Discontinued 600 MG PO TWICE A DAY August 07, 2020 12:00am September 22, 2022 6:04pm Start: 12-18-2017 End: 08-07-2020 take 600 mg by mouth once daily [place] Carbonate Disc ontinued 600 MG PO DAILY December 18, 2017 1:00am August 07, 2020 5:04pm Start: 12-18-2017 End: 08-07-2020 take 300 mg by mouth at bedtime [place] Carbonate Disc ontinued 300 MG PO AT BEDTIME December 18, 2017 1:00am August 07, 2020 5:04pm take 1 tablet by yenny th twice daily in the morning lithium carbonate 300 mg tablet Take 300 mg by mouth two times a day. 1 tablet in am 2 tablets in pm Active take 1 tablet by yenny th three times daily lithium carbonate 300 mg tablet Take 300 mg by mouth three times daily. 0 Active Comment on above: Take 300 mg by mouth three times daily. losartan potassium 100 mg oral tablet (20 sources) Angiotensin 2 Receptor Rajani Start: 11-04-2022 take 1 tablet by mouth once daily losartan (COZAAR) 100 mg tablet Take 100 mg by mouth once daily. 11/04/2022 Active Start: 11-04-2022 losartan (COZA AR) 100 mg tablet 50 mg once daily. 0 11/04/2022 Active Comment on above: 50 mg once daily. meclizine hydrochloride 25 mg oral tablet (1 source) Antiemetic Start: 3 take 25 mg by mouth three times daily Meclizine Active 25 MG PO THREE TIMES A DAY September 03, 2023 12:00am meloxicam 15 mg oral tablet (8 sources) Nonsteroidal Anti-inflammatory Drug Start: 3 take 15 mg by mouth once daily Meloxicam Active 15 MG PO DAILY July 14, 2023 12:00am Start: 07-16-2017 End: 03-18-2022 take 1 tablet by mouth once daily at mealtime meloxicam (MOBIC) 15 mg tablet Indications: Chronic pain of left knee Take 1 tablet by mouth once daily. With food. 30 tablet 3 07/16/2017 03/18/2022 Discontinued Comment on above: Take 1 tablet by yenny th once daily. With food. 24 hr metFORMIN hydrochloride 500 mg extended release oral tablet (16 sources) Biguanide Start: 11-26-2022 take 500 mg by mouth twice daily Metformin Active 500 MG PO TWICE A DAY November 26, 2022 1:00am take 1 tablet by yenny th twice daily at mealtime metFORMIN (GLUCOPHAGE) 500 mg tablet Renato e 500 mg by mouth two times a day with meals. Active 24 hr metoprolol succinate 50 mg extended release oral tablet (20 sources) beta-Adrenergic Rajani Start: 09-10-2022 take 100 mg by mouth once daily Metoprolol Succinate Active 100 MG PO DAILY September 10, 2022 10:22am Start: 03-16-2022 take 100 mg by mouth once daily metoprolol succinate ER (TOPROL XL) 100 mg Take 100 mg by mouth once daily. 03/16/2022 Active Start: 08-07-2020 End: 09-10-2022 take 50 mg by mouth once daily Metoprolol Succinate Di scontinued 50 MG PO DAILY August 07, 2020 12:00am September 10, 2022 10:30am Comment on above: Take 100 mg by mouth once daily. multivitamin tablet (20 sources) take 1 tablet by mouth once daily multivitamin tablet Take 1 tablet by mouth once daily. Active take 1 tablet by mouth once markus y multivitamin tablet Take 1 tablet by mouth once daily. 0 Active Comment on above: Take 1 tablet by yenny once daily. traZODone hydrochloride 100 mg oral tablet (20 sources) Serotonin Reuptake Inhibitor Start: 0 End: 3 take 1-2 mg by mouth at bedtime Trazodone Active 1 - 2 MG PO AT BEDTIME July 14, 2023 4:09pm Start: 12-18-2017 End: 03-18-2022 take 50 mg by mouth at bedtime Trazodone Discontinued 50 MG PO AT BEDTIME December 18, 2017 1:00am August 07, 2020 5:04pm take 2 tablets by mo [facility] at bedtime traZODone (DESYREL) 100 mg tablet Take two tablets by mouth at bedtime. Active Comment on above: Take 50 mg by mouth daily at bedtime. Take two tablets by mouth at bedtime. Completed/Discontinued Medications Medication Drug Class(es) Dates Sig (Normalized) Sig (Original) acetaminophen 325 mg / HYDROcodone bitartrate 5 mg oral tablet (13 sources) Opioid Agonist Start: 12-10-2022 End: 01-21-2023 take 1 tablet by mouth every six hours Hydrocodone-Acetam inophen Discontinued 1 TABLET PO EVERY 6 HOURS 8 2 December 10, 2022 January 21, 2023 9:30am amoxicillin 875 mg / clavulanate 125 mg oral tablet (20 sources) Penicillin-class Antibacterial Start: 02-02-2020 End: 02-10-2020 take 1 tablet by mouth twice daily Amoxicillin-Pot Clavulanate Discontinued 1 TABLET PO TWICE A DAY February 02, 2020 12:00am February 10, 2020 11:01am apixaban 2.5 mg oral tablet (20 sources) Factor Xa Inhibitor Start: 11-19-2021 End: 12-30-2021 take 1 tablet by mouth twice daily in the morning Apixaban (Eliquis) 2.5 mg tablet Discontinued 2.5 MG PO TWICE A DAY November 19, 2021 1:00am December 30, 2021 9:43am Begin morning after surgery azithromycin 250 mg oral tablet (20 sources) Macrolide Antimicrobial Start: 08-14-2021 End: 10-07-2021 Azithromycin Discontinued 0 PO .COMPLEX 6 August 20, 2021 12:00am October 07, 2021 8:59am take 500 mg today (day 1), then 250 mg for 4 days (days 2-5) PO Start: 02-10-2020 End: 08-07-2020 Azithromycin Discontinued 0 PO .COMPLEX 6 February 10, 2020 12:00am August 07, 2020 5:03pm take 500 mg today (day 1), then 250 mg for 4 days (days 2-5) PO Start: 01-17-2019 End: 01-27-2019 Azithromycin Discontinued 0 PO .COMPLEX 6 January 17, 2019 1:00am January 27, 2019 7:13am take 500 mg today (day 1), then 250 mg for 4 days (days 2-5) PO baclofen 20 mg oral tablet (20 sources) gamma-Aminobutyric Acid-ergic Agonist Start: 04-08-2023 End: 09-03-2023 take 20 mg by mouth three times daily Baclofen Discontinued 20 MG PO THREE TIMES A DAY 90 July 15, 2023 10:38pm September 03, 2023 8:31am Start: 01-19-2023 End: 01-21-2023 take 10 mg by mouth three times daily Baclofen Discontinued 10 MG PO THREE TIMES A DAY 90 January 19, 2023 1:00am January 21, 2023 9:31am benzonatate 100 mg oral capsule (20 sources) Non-narcotic Antitussive Start: 08-20-2021 End: 10-07-2021 take 200 mg by mouth three times daily Benzonatate Discontinued 200 MG PO THREE TIMES A DAY August 20, 2021 12:00am October 07, 2021 9:00am cephalexin 500 mg oral capsule (20 sources) Cephalosporin Antibacterial Start: 11-19-2021 End: 12-30-2021 Cephalexin Discontinued 1000 MG PO EVERY 8 HOURS November 19, 2021 1:00am December 30, 2021 9:43am take 2 tabs at 9:00 pm and 2 tabs after 5 am when you wake up DULoxetine 60 mg delayed release oral capsule (20 sources) Serotonin and Norepinephrine Reuptake Inhibitor Start: 11-26-2022 End: 09-03-2023 take 60 mg by mouth at bedtime Duloxetine Discontinued 60 MG PO AT BEDTIME November 26, 2022 1:00am September 03, 2023 9:29am Start: 09-10-2022 End: 09-22-2022 take 30 mg by mouth at bedtime Duloxetine Discontinued 30 MG PO AT BEDTIME September 10, 2022 12:00am September 22, 2022 6:03pm Start: 09-10-2022 End: 09-22-2022 take 60 mg by mouth once daily at bedtime Duloxetine Discontinued 60 MG PO AT BEDTIME September 10, 2022 12:00am September 22, 2022 6:04pm Begin after completing one week course of duloxetine 30mg nightly. flurbiprofen 100 mg oral tablet (20 sources) Nonsteroidal Anti-inflammatory Drug Start: 09-10-2022 End: 09-22-2022 take 100 mg by mouth three times daily Flurbiprofen Discontinued 100 MG PO THREE TIMES A DAY September 10, 2022 12:00am September 22, 2022 6:04pm gabapentin 100 mg oral capsule (20 sources) Anti-epileptic Agent Start: 06-18-2021 End: 09-10-2022 take 100 mg by mouth three times daily Gabapentin Discontinued 100 MG PO THREE TIMES A DAY June 18, 2021 12:00am September 10, 2022 10:28am take 1 capsule by [facility] three times daily gabapentin (NEURONTIN) 400 mg capsule Ta 400 mg by mouth three times daily. 0 Active Comment on above: Take 400 mg by mouth three times daily. hydrocortisone 0.025 mg/mg topical ointment (20 sources) Corticosteroid Start: 2021 End: 2021 Hydrocortisone Discontinued 1 APPLIC TOPICAL TWICE A DAY 28.35 August 03, 2022 12:00am September 10, 2022 10:28am lactulose 667 mg/ml oral solution (20 sources) Osmotic Laxative Start: 2021 End: 2022 take 1 mL by mouth once daily Lactulose Discontinued 15 ML PO DAILY November 26, 2022 12:18pm January 19, 2023 10:28pm lisinopril 10 mg oral tablet (2 sources) Angiotensin Converting Enzyme Inhibitor Start: 2016 End: 2021 take 1 tablet by mouth once daily lisinopril (ZESTRIL, PRINIVIL) 10 mg tablet Indications: Essential hypertension Take 1 tablet by mouth once daily. 30 tablet 3 07/16/2017 03/18/2022 Discontinued Comment on above: Take 1 tablet by yenny th once daily. methylPREDNISolone 4 mg oral tablet (20 sources) Corticosteroid Start: 2022 End: 2022 take 1 tablet by mouth once Methylprednisolone (Medrol (Anirudh)) 4 mg tablets,dose pack Discontinued 0 PO per package directions August 15, 2023 12:00am September 03, 2023 9:30am PO PER PKG DIR Start: 08-20-2021 End: 08-25-2021 take 1 tablet by mouth once Methylprednisolone (Medrol (Anirudh)) 4 mg tablets,dose pack Discontinued 4 MG PO per package directions 12 04August 20, 2021 12:00am August 25, 2021 12:01am Start: 08-19-2021 End: 08-19-2021 Depo-Medrol (methylprednisol one acetate) 40 mg/mL suspension for injection Discontinued 80 MG INTRAARTIC ONCE August 19, 2021 8:09am August 19, 2021 9:29am Start: 01-17-2019 End: 01-22-2019 take 1 tablet by mouth once Methylprednisolone (Medrol (Anirudh)) 4 mg tablets,dose pack Discontinued 4 MG PO per package directions 12 04January 17, 2019 1:00am January 22, 2019 1:10am oxyCODONE hydrochloride 5 mg oral tablet (20 sources) Opioid Agonist Start: 12-03-2021 End: 12-08-2021 take 5-10 mg by mouth every six hours Oxycodone Discontinued 5 - 10 MG PO EVERY 6 HOURS 42 5 December 03, 2021 December 08, 2021 1:01am Start: 11-19-2021 End: 12-03-2021 take 5-10 mg by mouth every four hours Oxycodone Discontinued 5 - 10 MG PO Q4H 60 December 03, 2021 December 03, 2021 4:28pm predniSONE 10 mg oral tablet (20 sources) Start: 06-02-2023 End: 06-22-2023 take 4 tablets by mouth once daily, then take 3 tablets by mouth once daily, then take 2 tablets by mouth once daily, then take 1 tablet by mouth once daily Prednisone Discontinued 10 MG PO As Directed June 02, 2023 12:00am June 22, 2023 10:49am 4 tablets daily x3 days, then 3 tablets daily x3 days, then 2 tablets daily x3 days, then 1 tablet daily x3 days Start: 08-03-2022 Prednisone Act rafita 0 PO daily August 02, 2022 11:00pm 4 tabs for 3 days, then 3 tabs for 3 days, then 2 tabs for 3 days, then 1 tab for 3 days PO QDAY; administer with food or milk Start: 05-19-2022 End: 05-31-2022 Prednisone Discontinued 10 M G PO daily 21 11May 19, 2022 12:00am May 31, 2022 12:04am Take 4 tabs once daily days 1-3 3 tabs once daily days 4-6 2 tabs once daily days 7-9 and 1 tab once daily days 10-12. propranolol hydrochloride 10 mg oral tablet (20 sources) beta-Adrenergic Rajani Start: 11-26-2022 End: 04-08-2023 Propranolol Discontinued 20 MG PO 08November 26, 2022 1:00am April 08, 2023 12:51pm Start: 11-26-2022 End: 04-08-2023 take 10 mg by mouth at bedtime Propranolol Discontinue d 10 MG PO AT BEDTIME November 26, 2022 1:00am April 08, 2023 12:51pm tamsulosin hydrochloride 0.4 mg oral capsule (20 sources) alpha-Adrenergic Rajani Start: 06-18-2021 End: 10-16-2021 take 1 capsule by mouth once daily Tamsulosin (Flomax) 0.4 mg capsule Discontinued 0.4 MG PO DAILY June 18, 2021 12:00am October 16, 2021 10:58am triamcinolone acetonide 40 mg/ml injectable suspension (2 sources) Corticosteroid Start: 02-10-2022 End: 02-10-2022 Kenalog (triamcinolone acetonide) 40 mg/mL suspension for injection Discontinued 80 MG INTRAARTIC ONCE 2 February 10, 2022 8:39am February 10, 2022 9:04am Start: 01-12-2019 End: 01-12-2019 Kenalog (triamcinolone aceto nide) 40 mg/mL suspension for injection Discontinued 80 MG INTRAARTIC ONCE 2 January 12, 2019 11:00am January 12, 2019 12:28pm Problems Active Problems Problem Classification Problem Date Documented Da te Episodic/Chronic Acute bronchitis (20 sources) Acute bronchitis; Translations: [Acute bronchitis, unspecified] 08-20-2021 Episodic Alcohol-related disorders (20 sources) Alcohol abuse; Translations: [Alcohol abuse, uncomplicated] 08-19-2021 Chronic Allergic reactions (20 sources) Irritant contact dermatitis due to plant; Translations: [Irritant contact dermatitis due to plants, except food] Episodic Complications of surgical procedures or medical care (20 sources) Postoperative hematoma formation; Translations: [Postoperative hematoma] 12-09-2022 Episodic Deficiency and other anemia (2 sources) Cold autoimmune hemolytic anemia; 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 Deficiency and other anemia (1 source) Deficiency and other anemia; Translations: [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)] Onset: 05-03-2025 Diabetes mellitus with complications (2 sources) Type 2 diabetes mellitus with other circulatory complications; Translations: [Type 2 diabetes mellitus with unspecified complications] Onset: 01-19-2025 Chronic E Codes: Cut/pierceb (20 sources) Accident caused by powered cook candy; Translations: [Contact with powered cook candy, initial encounter] 06-25-2022 Episodic Essential hypertension (20 sources) Essential hypertension; Translations: [Essential (primary) hypertension] Onset: 07-16-2017 07-16-2017 Chronic Immunizations and screening for infectious disease (20 sources) Contact with and (suspected) exposure to other viral communicable diseases; Translations: [Contact with or suspected exposure to other viral communicable disease] 08-13-2021 Episodic Joint disorders and dislocations; trauma-related (12 sources) Tear of medial meniscus of knee; Translations: [Other tear of medial meniscus, current injury, right knee, initial encounter] 06-22-2023 Episodic Mood disorders (20 sources) Bipolar I disorder; Translations: [Bipolar disorder, unspecified] Onset: 07-13-2025 11-13-2022 Chronic Multiple myeloma (1 source) Multiple myeloma; Translations: [Multiple myeloma not having achieved remission] Chronic Neoplasms of unspecified nature or uncertain behavior (20 sources) Monoclonal gammopathy (clinical); Translations: [Monoclonal gammopathy] Onset: 04-17-2022 Chronic Nonspecific chest pain (20 sources) Chest pain; Translations: [Chest pain, unspecified] 08-08-2020 Episodic Occlusion or stenosis of precerebral arteries (20 sources) Right carotid artery stenosis; Translations: [Occlusion and stenosis of right carotid artery] Onset: 12-22-2024 Chronic Open wounds of extremities (20 sources) Laceration of lower limb; Translations: [Laceration without foreign body, unspecified lower leg, initial encounter] 06-25-2022 Episodic Osteoarthritis (20 sources) Osteoarthritis of left knee joint; Translations: [Unilateral primary osteoarthritis, left knee] Onset: 12-02-2024 10-07-2021 Chronic Other aftercare (20 sources) Long-term current use of anticoagulant; Translations: [buttermaker continuous churn (current) use of anticoagulants] Episodic Other aftercare (1 source) Encounter for other orthopedic aftercare; Translations: [Unspecified orthopedic aftercare] Episodic Other aftercare (1 source) Other senior care (current) drug therapy; Translations: [Other senior care (current) drug therapy] Onset: 07-06-2025 Episodic Other and unspecified benign neoplasm (17 sources) History of polyp of colon; Translations: [Personal history of colonic polyps] 10-24-2022 Episodic Other and unspecified benign neoplasm (20 sources) Personal history of colonic polyps; Translations: [Personal history of colonic polyps] Episodic Other circulatory disease (20 sources) Foot pulse absent; Translations: [Other specified symptoms and signs involving the circulatory and respiratory systems] 09-10-2022 Episodic Other circulatory disease (11 sources) Other specified symptoms and signs involving the circulatory and respiratory systems; Translations: [Other symptoms involving cardiovascular system] Episodic Other connective tissue disease (20 sources) History of total knee arthroplasty; Translations: [Presence of unspecified artificial knee joint] 12-04-2021 Chronic Other connective tissue disease (13 sources) Presence of unspecified artificial knee joint; Translations: [Knee joint replacement] Chronic Other connective tissue disease (1 source) Presence of right artificial knee joint; Translations: [Presence of right artificial knee joint] Onset: 12-12-2024 Chronic Other connective tissue disease (20 sources) Trochanteric bursitis; Translations: [Trochanteric bursitis, left hip] 01-16-2022 Episodic Other connective tissue disease (20 sources) Iliotibial band friction syndrome; Translations: [Iliotibial band syndrome, left leg] 01-16-2022 Episodic Other connective tissue disease (3 sources) Trochanteric bursitis, left hip; Translations: [Enthesopathy of hip region] Episodic Other connective tissue disease (3 sources) Iliotibial band syndrome, left leg; Translations: [Other disorders of muscle, ligament, and fascia] Episodic Other connective tissue disease (3 sources) Lateral epicondylitis of right humerus; Translations: [Lateral epicondylitis, right elbow] 06-22-2023 Episodic Other connective tissue disease (3 sources) Muscle pain; Translations: [Myalgia, unspecified site] 07-15-2023 Episodic Other connective tissue disease (3 sources) Lateral epicondylitis, right elbow; Translations: [Lateral epicondylitis] 06-22-2023 Episodic Other connective tissue disease (4 sources) Myalgia, unspecified site; Translations: [Myalgia and myositis, unspecified] Onset: 07-06-2025 07-14-2023 Episodic Other connective tissue disease (1 source) Iliotibial band friction syndrome of left knee; Translations: [Iliotibial band syndrome, left leg] 01-16-2022 Episodic Other gastrointestinal disorders (1 source) Other dysphagia; Translations: [Other dysphagia] Onset: 07-26-2025 Episodic Other hereditary and degenerative nervous system conditions (20 sources) Medication-induced postural tremor; Translations: [Drug-induced tremor] 09-10-2022 Chronic Other hereditary and degenerative nervous system conditions (20 sources) Drug-induced tremor; Translations: [Abnormal involuntary movements] Onset: 03-28-2025 Chronic Other hereditary and degenerative nervous system conditions (17 sources) Essential tremor; Translations: [Essential tremor] 10-29-2022 Chronic Other hereditary and degenerative nervous system conditions (20 sources) Essential tremor; Translations: [Essential and other specified forms of tremor] Onset: 03-28-2025 Chronic Other lower respiratory disease (20 sources) Dyspnea; Translations: [Shortness of breath] 08-07-2020 Episodic Other nervous system disorders (1 source) Sensory neuropathy; Translations: [Polyneuropathy, unspecified] Chronic Other nervous system disorders (2 sources) Neuropathy; Translations: [Polyneuropathy, unspecified] Chronic Other nervous system disorders (20 sources) Polyneuropathy; Translations: [Polyneuropathy, unspecified] 09-10-2022 Chronic Other nervous system disorders (20 sources) Polyneuropathy, unspecified; Translations: [Unspecified hereditary and idiopathic peripheral neuropathy] Onset: 03-28-2025 Chronic Other nervous system disorders (1 source) Disorder of the peripheral nervous system; Translations: [Polyneuropathy, unspecified] Chronic Other nervous system disorders (1 source) Other chronic pain; Translations: [Other chronic pain] Onset: 10-17-2024 Chronic Other nervous system disorders (20 sources) Acute postoperative pain; Translations: [Other acute postprocedural pain] 11-19-2021 Episodic Other nervous system disorders (1 source) Other acute postprocedural pain; Translations: [Other acute postoperative pain] Episodic Other non-traumatic joint disorders (4 sources) Pain in left knee; Translations: [Pain in joint, lower leg] 06-08-2023 Episodic Other nutritional; endocrine; and metabolic disorders (11 sources) Hyperammonemia; Translations: [Disorder of urea cycle metabolism, unspecified] 01-19-2023 Chronic Other nutritional; endocrine; and metabolic disorders (15 sources) Disorder of urea cycle metabolism, unspecified; Translations: [Disorders of urea cycle metabolism] Onset: 03-28-2025 01-19-2023 Chronic Other upper respiratory infections (20 sources) Pharyngitis; Translations: [Acute pharyngitis, unspecified] Onset: 08-06-2025 08-08-2020 Episodic Peripheral and visceral atherosclerosis (1 source) Peripheral vascular disease, unspecified; Translations: [Peripheral vascular disease, unspecified] Onset: 07-28-2025 Chronic Unclassified (1 source) Low back pain, unspecified; Translations: [Low back pain, unspecified] Onset: 07-06-2025 Past or Other Problems Problem Classification Problem Date Documented Da te Episodic/Chronic Other aftercare (1 source) buttermaker continuous churn (current) use of anticoagulants; Translations: [Chronic anticoagulation] Onset: 04-17-2022 Episodic Other non-traumatic joint disorders (20 sources) Pain in right knee; Translations: [Mechanical pain of right knee] Onset: 10-17-2024 08-19-2021 Episodic Other screening for suspected conditions (not mental disorders or infectious disease) (20 sources) Patient encounter status; Translations: [Encounter for screening for malignant neoplasm of intestinal tract, unspecified] Onset: 03-30-2025 06-18-2021 Episodic Spondylosis; intervertebral disc disorders; other back problems (20 sources) Low back pain; Translations: [Low back pain] Onset: 03-28-2025 Episodic Results Test Name Value Interpretation Reference Range Facility Urgent Care Visit Reporton 0 08-06-2025 Urgent Care Visit Report [facility] [address], [address] [place] [id number] OFFICE VISIT Date of Service: 08/06/25 MR#: [id number] Acct: [id number] Name: NIKO HUITRON Rep #: [id number] : 1960 Provider: SHIKHA barriga Age/Sex: 64/M Location: [facility] Status: Signed Intake Vital Signs 07/26/25 08:29 08/06/25 09:10 Height 6 ft 1 in 6 ft 1 in Weight: 269 lb 266 lb BMI 35.4 35.1 BP 115/70 154/72 H Blood Pressure Location Rt brachial Lt brachial Position Sitting Sitting Respiration 18 Pulse 69 Pulse Source Monitor Temp 98.2 F Temp Source Oral Pulse Oximetry (%) 95 Oxygen Delivery Method room air Intake Visit Reasons: CHEST CONGESTION, COUGH Chief Complaint: Chest congestion, cough Accompanied by: Allergies No Known Allergies Allergy (Verified 08/06/25 10:10) Medications ???Medication ???Instructions ???Recorded ???Confirmed ???Type amlodipine 10 mg tablet 10 mg PO DAILY blood pressure 07/2408/06/25 History hydrochlorothiazide 25 mg tablet 25 mg PO DAILY BP 06/18/21 5 History clopidogrel 75 mg tablet (Plavix) 75 mg PO DAILY BLODD THINNER 09/2408/06/25 History Held on 11/01/24. Instructions: May resume the day after the completion of Eliquis prescription accu-check fe plus See Rx Instructions .Route 2 08/06/25 History .COMPLEX DIABETES acetaminophen 500 mg capsule 500 mg PO Q6H PRN Pain 09/10/22 History Held on 11/01/24. Instructions: Duplicate metoprolol succinate 50 mg 100 mg PO DAILY heart 09/10/22 History tablet,extended release 24 hr losartan 100 mg tablet (Cozaar) 100 mg PO DAILY BP 11/26/22 History metformin 500 mg tablet,extended 500 mg PO BID DIABETES 11/26/22 History release 24 hr aspirin 81 mg tablet,delayed 81 mg PO DAILY 09/03/23 08/06/25 H istory release Held on 11/01/24. Instructions: Resume on 11/04/24. lactulose 10 gram/15 mL oral 15 ml PO DAILY Tremor #1,350 mL 08/06/25 Rx solution tizanidine 4 mg tablet 4 mg PO TID PRN muscle spasticity; 03/01/25 08/06/25 Rx muscle pain #270 tabs lithium carbonate 300 mg capsule 900 mg (3 x 300 mg) PO .COMPLEX 08/06/25 Rx DEPRESSION 90 days #270 caps trazodone 50 mg tablet 100 mg (2 x 50 mg) PO QHS PRN 06/2408/06/25 Rx sleep #180 tabs amitriptyline 100 mg tablet 25 mg PO QHS 07/26/25 08/06/25 His tory biotin 2,500 mcg capsule 2,500 mcg PO QDAY 07/26/25 5 History duloxetine 60 mg capsule,delayed 60 mg PO QDAY 07/26/25 08/06/25 Hi story release meclizine 25 mg tablet 25 mg PO BID PRN 07/26/25 08/06/25 History meloxicam 15 mg tablet 15 mg PO QDAY 07/26/25 08/06/25 Hi story pravastatin 20 mg tablet 20 mg PO QHS 07/26/25 08/06/25 His tory rabeprazole 20 mg tablet,delayed 20 mg PO QAM 07/26/25 08/06/25 His tory release azithromycin 250 mg tablet See Rx Instructions PO .COMPLEX #6 09/14/25 09/14/25 Rx tabs benzonatate 200 mg capsule 200 mg PO TID PRN cough #20 caps 0 08/06/25 08/06/25 Rx methylprednisolone 4 mg tablets in See Rx Instructions PO PER PKG D IR 08/06/25 08/06/25 Rx a dose pack (Medrol (Anirudh)) #21 tabs Have you fallen in the past year?: No Nurse's Note: Head pressure, congestion, cough, sore throat, chest congestion. X 4 days. Tried OTC meds, no relief. [facility] Medical History URI (upper respiratory infection) Carotid stenosis Hematoma of neck Wears glasses Alcohol use Bipolar disorder High cholesterol Seizures Non-smoker History of echocardiogram History of heart attack Hypertension Cardiology follow-up encounter History of stress test Osteoarthritis of left knee Carotid stenosis, bilateral Shortness of breath Bipolar 1 disorder Essential hypertension Pharyngitis Acute bronchitis Chest pain Shoulder pain Arthritis Surgical History History of carotid endarterectomy History of right-sided carotid endarterectomy Hx of transurethral resection of prostate Hx of total knee arthroplasty History of colonoscopy ( 10/2022) History of bursectomy History of arthroscopy of knee History of carpal tunnel release Family History Father Myocardial infarction Hypertension Alcoholism Mother Cancer Diabetes Brother Heart disease Hypertension Alcoholism Cancer prostate Grandfather Myocardial infarction CVA (cerebral vascular accident) Carotid arterial disease Social History (Updated 07/26/25 @ 08:37 by Evon Pan) Smoking Status: Never smoker alcohol intake: former substance use type: marijuana (more content not included)... Normal [facility] Surgery Visit Reporton 07-26 Surgery Visit Report [facility] [address] [place] [address] OFFICE VISIT Date of Service: 07/26/25 MR#: [id number] Acct: [id number] Name: NIKO HUITRON Rep #: [id number] : 1960 Provider: Dr. Nathen jackson MD Age/Sex: 64/M Location: [facility] Status: Signed Intake Vital Signs 07/13/25 08:55 07/26/25 08:29 Height 6 ft 1 in 6 ft 1 in Weight: 264 lb 269 lb BMI 34.8 35.4 BP 108/65 115/70 Blood Pressure Location Lt brachial Rt brachial Position Sitting Sitting Respiration 16 18 Pulse 52 L Pulse Source Monitor Intake Visit Reasons: Dysphagia Chief Complaint: dysphagia Administrative Assistant Required: No Is patient in pain?: No Allergies No Known Allergies Allergy (Verified 07/26/25 08:29) Medications ???Medication ???Instructions ???Recorded ???Confirmed ???Type amlodipine 10 mg tablet 10 mg PO DAILY blood pressure 07/2407/26/25 History hydrochlorothiazide 25 mg tablet 25 mg PO DAILY BP 06/18/21 5 History clopidogrel 75 mg tablet (Plavix) 75 mg PO DAILY BLODD THINNER 09/2407/26/25 History Held on 11/01/24. Instructions: May resume the day after the completion of Eliquis prescription accu-check fe plus See Rx Instructions .Route 2 07/26/25 History .COMPLEX DIABETES acetaminophen 500 mg capsule 500 mg PO Q6H PRN Pain 09/10/22 History Held on 11/01/24. Instructions: Duplicate metoprolol succinate 50 mg 100 mg PO DAILY heart 09/10/2202/14 History tablet,extended release 24 hr losartan 100 mg tablet (Cozaar) 100 mg PO DAILY BP 11/26/22 History metformin 500 mg tablet,extended 500 mg PO BID DIABETES 11/26/22 History release 24 hr aspirin 81 mg tablet,delayed 81 mg PO DAILY 09/03/23 07/26/25 H istory release Held on 11/01/24. Instructions: Resume on 11/04/24. lactulose 10 gram/15 mL oral 15 ml PO DAILY Tremor #1,350 mL 07/26/25 Rx solution tizanidine 4 mg tablet 4 mg PO TID PRN muscle spasticity; 03/01/25 07/26/25 Rx muscle pain #270 tabs lithium carbonate 300 mg capsule 900 mg (3 x 300 mg) PO .COMPLEX 08 /21/25 09/03/25 Rx DEPRESSION 90 days #270 caps trazodone 50 mg tablet 100 mg (2 x 50 mg) PO QHS PRN 06/2407/26/25 Rx sleep #180 tabs amitriptyline 100 mg tablet 25 mg PO QHS 07/26/25 History biotin 2,500 mcg capsule 2,500 mcg PO QDAY 07/26/25 5 History duloxetine 60 mg capsule,delayed 60 mg PO QDAY 07/26/25 07/26/25 Hi story release meclizine 25 mg tablet 25 mg PO BID PRN 07/26/25 07/26/25 History meloxicam 15 mg tablet 15 mg PO QDAY 07/26/25 07/26/25 Hi story pravastatin 20 mg tablet 20 mg PO QHS 07/26/25 07/26/25 His tory rabeprazole 20 mg tablet,delayed 20 mg PO QAM 07/26/25 07/26/25 His tory release Have you fallen in the past year?: No PFSH Medical History URI (upper respiratory infection) Carotid stenosis Hematoma of neck Wears glasses Alcohol use Bipolar disorder High cholesterol Seizures Non-smoker History of echocardiogram History of heart attack Hypertension Cardiology follow-up encounter History of stress test Osteoarthritis of left knee Carotid stenosis, bilateral Shortness of breath Bipolar 1 disorder Essential hypertension Pharyngitis Acute bronchitis Chest pain Shoulder pain Arthritis Surgical History History of carotid endarterectomy History of right-sided carotid endarterectomy Hx of transurethral resection of prostate Hx of total knee arthroplasty History of colonoscopy ( 10/2022) History of bursectomy History of arthroscopy of knee History of carpal tunnel release Family History Father Myocardial infarction Hypertension Alcoholism Mother Cancer Diabetes Brother Heart disease Hypertension Alcoholism Cancer prostate Grandfather Myocardial infarction CVA (cerebral vascular accident) Carotid arterial disease Social History (Updated 07/26/25 @ 08:37 by Evon Pan) Smoking Status: Never smoker alcohol intake: former substance use type: marijuana HPI HPI HPI: Patient is a 64-year-old male with dysphagia. He reports difficulty swallowing for several years. He had an upper GI about a year ago which showed trapping of the tablet. ROS General General: Yes weight change; No appetite, fatigue, colon cancer, breast cancer or weakness HEENT HEENT: Yes difficulty swallowing; No eye injury, eye surgery, swollen glands or hoarseness Endo Endocrine: Yes diabetes mellitus; No thyroid disease, thyroid cancer, Hair loss, heat intolerance (more content not included)... Normal [facility] Urinalysis, Completeon 07-20 BACTERIA 3+ /hpf Normal None Seen [facility] Comment on above: Order Comment: Order Date: 01/06/25 Order Info: [id number] - CBCD Performed By: #### L 502.0250, L100.0100, L501.9985, L500.4050, L500.4100 #### [facility] [address] [place], [address] EPI,SQUAMOUS 0 SEEN Normal 0-5 [facility] Comment on above: Order Comment: Order Date: 01/06/25 Order Info: [id number]- - CBCD Performed By: #### L 502.0250, L100.0100, L501.9985, L500.4050, L500.4100 #### [facility] [address] [place], [address] Mucus Ql (Urine sed) 0 SEEN Normal [facility] Comment on above: Order Comment: Order Date: 01/06/25 Order Info: [id number]- - CBCD Performed By: #### L 502.0250, L100.0100, L501.9985, L500.4050, L500.4100 #### [facility] [address] [place], [address] RBC 0 SEEN Normal 0-5 [facility] Comment on above: Order Comment: Order Date: 01/06/25 Order Info: [id number] - CBCD Performed By: #### L 502.0250, L100.0100, L501.9985, L500.4050, L500.4100 #### [facility] [address] [place], [address] WBC 0 SEEN Normal 0-5 [facility] Comment on above: Order Comment: Order Date: 01/06/25 Order Info: [id number] - CBCD Performed By: #### L 502.0250, L100.0100, L501.9985, L500.4050, L500.4100 #### [facility] [address] [place], [address] Lower Ext Art Exam w/o Exerc shara 07-19-2025 Lower Ext Art Exam w/o Exercis [facility] [address] [place] [address] Lower Ext Art Exam w/o Exercis 07/19/25 0800 MR#: [id number] Acct: [id number] Name: NIKO HUITRON Rep #: [id number] : 1960 64 From: Omid Calderon MD Attending Dr: Dr. Awais Law, DPMonica Status: REG CLI Ordering Dr: Awais Law DPM Date: 07/19/25 Location: [facility] Sex: M C Admitted: Reason For Study Reason For Study: PVD Procedure A bilateral lower extremity continuous wave Doppler with analog waveform analysis,segmental pressures,and ankle brachial indexes without exercise. Left Segmental Pressures Left brachial= 107mmHg. Left posterior tibial artery = 154mmHg. Left dorsalis pedis artery = 141mmHg. Left digit = 124 mmHg. The left posterior tibial artery waveforms are triphasic. The left dorsalis pedis waveforms are triphasic. Right Segmental Pressures Right brachial= 106mmHg. Right posterior tibial artery = 141mmHg. Right dorsalis pedis artery = 132mmHg. Right digit = 161 mmHg. The right posterior tibial artery waveforms are triphasic. The right dorsalis pedis waveforms are triphasic. Indices The right ankle brachial index by the posterior tibial artery is 1.32. The right ankle brachial index by the dorsalis pedis is 1.23. The right digital-brachial index is 1.50. The left ankle brachial index by the posterior tibial artery is 1.44. The left ankle brachial index by the dorsalis pedis is 1.32. The left digital-brachial index is 1.16. VL/Lower Ext Art Exam w/o Exercis Interpretation Summary Triphasic Doppler waveforms are noted at ankle level bilaterally. Pulse-volume recordings appear satisfactory at all levels bilaterally. The resting right ankle-brachial index is normal. The resting left ankle- brachial index is supra- normal. Digital-brachial indices are normal bilaterally. There is evidence of arterial calcification at ankle level on the left. There is no evidence of significant arterial occlusive disease in the lower extremities bilaterally. Ordering Physician: Awais Law Referring Physician: Silverio Salmeron Performed By: Ramón Thomas RVT and Student 07/19/252324 Date Omid Calderon MD CC: DPMonica Law; Dr. Silverio Salmeron MD Date Dictated: 07/19/25799 Date Transcribed: 07/19/252324 [employer] Representative: Signed Normal [facility] CBC W/Diff, Automatedon - Absolute Lymph 2.78 X10 3/uL Normal 0.83-4.51 [facility] Comment on above: Order Comment: Order Date: 01/06/25 Order Info: [id number] - A1C Performed By: #### L 502.0250, L100.0100, L501.9968, L500.4050, L500.0979 #### [facility] [address] [place], [address] Absolute Neut 6.8 X10 3/uL Normal 2.0-7.7 [facility] Comment on above: Order Comment: Order Date: 01/06/25 Order Info: 4548-4 - A1C Performed By: #### L 502.0250, L100.0100, L501.9985, L500.4050, L500.4100 #### [facility] [address] [place], [address] Basophils/100 WBC (Bld) 1.0 % Normal 0-1 [facility] Comment on above: Order Comment: Order Date: 01/06/25 Order Info: 4548-4 - A1C Performed By: #### L 502.0250, L100.0100, L501.9985, L500.4050, L500.4100 #### [facility] [address] [place], [address] Eosinophils/100 WBC (Bld) 2.0 % Normal 0-5 [facility] Comment on above: Order Comment: Order Date: 01/06/25 Order Info: 4548-4 - A1C Performed By: #### L 502.0250, L100.0100, L501.9985, L500.4050, L500.4100 #### [facility] [address] [place], [address] Erythrocyte distribution width (RBC) [Ratio] 13.2 % Normal 11.6-14.6 [facility] Comment on above: Order Comment: Order Date: 01/06/25 Order Info: 4548-4 - A1C Performed By: #### L 502.0250, L100.0100, L501.9985, L500.4050, L500.4100 #### [facility] [address] [place], [address] Hematocrit (Bld) [Volume fraction] 38.3 % Low 40-54 [facility] Comment on above: Order Comment: Order Date: 01/06/25 Order Info: 4548-4 - A1C Performed By: #### L 502.0250, L100.0100, L501.9985, L500.4050, L500.4100 #### [facility] [address] [place], [address] Hemoglobin (Bld) [Mass/Vol] 12.9 g/dL Low 13.0-16.5 [facility] Comment on above: Order Comment: Order Date: 01/06/25 Order Info: 4548-4 - A1C Performed By: #### L 502.0250, L100.0100, L501.9985, L500.4050, L500.4100 #### [facility] [address] [place], [address] IG% 0.800 Normal 0.0-0.9 [facility] Comment on above: Order Comment: Order Date: 01/06/25 Order Info: 4548-4 - A1C Result Comment: IG% - Immature Granulocytes (promyelocytes, myelocytes and metamyelocytes) > 1% indicates that a LEFT SHIFT is Present. Performed By: #### L 502.0250, L100.0100, L501.9985, L500.4050, L500.4100 #### [facility] [address] [place], [address] Lymphocytes/100 WBC (Bld) 25.1 % Normal 19-41 [facility] Comment on above: Order Comment: Order Date: 01/06/25 Order Info: 4548-4 - A1C Performed By: #### L 502.0250, L100.0100, L501.9985, L500.4050, L500.4100 #### [facility] [address] [place], [address] MCH (RBC) [Entitic mass] 30.3 pg Normal 27.0-32.0 [facility] Comment on above: Order Comment: Order Date: 01/06/25 Order Info: 4548-4 - A1C Performed By: #### L 502.0250, L100.0100, L501.9985, L500.4050, L500.4100 #### [facility] [address] [place], [address] MCHC (RBC) [Mass/Vol] 33.7 g/dL Normal 32-36 [facility] Comment on above: Order Comment: Order Date: 01/06/25 Order Info: 4548-4 - A1C Performed By: #### L 502.0250, L100.0100, L501.9985, L500.4050, L500.4100 #### [facility] [address] [place], [address] MCV (RBC) [Entitic vol] 89.9 fL Normal 80-94 [facility] Comment on above: Order Comment: Order Date: 01/06/25 Order Info: 4548-4 - A1C Performed By: #### L 502.0250, L100.0100, L501.9985, L500.4050, L500.4100 #### [facility] [address] [place], [address] Monocytes/100 WBC (Bld) 9.6 % Normal 0-10 [facility] Comment on above: Order Comment: Order Date: 01/06/25 Order Info: 4548-4 - A1C Performed By: #### L 502.0250, L100.0100, L501.9985, L500.4050, L500.4100 #### [facility] [address] [place], [address] Neutrophils/100 WBC (Bld) 61.5 % Normal 47-70 [facility] Comment on above: Order Comment: Order Date: 01/06/25 Order Info: 4548-4 - A1C Performed By: #### L 502.0250, L100.0100, L501.9985, L500.4050, L500.4100 #### [facility] [address] [place], [address] Nucleated RBC (Bld) [#/Vol] 0 10*3/uL Normal 0-5 [facility] Comment on above: Order Comment: Order Date: 01/06/25 Order Info: 4548-4 - A1C Performed By: #### L 502.0250, L100.0100, L501.9985, L500.4050, L500.4100 #### [facility] [address] [place], [address] Platelet mean volume (Bld) [Entitic vol] 10.4 fL Normal 6.2-12.0 [facility] Comment on above: Order Comment: Order Date: 01/06/25 Order Info: 4548-4 - A1C Performed By: #### L 502.0250, L100.0100, L501.9985, L500.4050, L500.4100 #### [facility] [address] [place], [address] Platelets (Bld) [#/Vol] 273 10*3/uL Normal 150-450 [facility] Comment on above: Order Comment: Order Date: 01/06/25 Order Info: 4548-4 - A1C Performed By: #### L 502.0250, L100.0100, L501.9985, L500.4050, L500.4100 #### [facility] [address] [place], [address] RBC (Bld) [#/Vol] 4.26 10*6/uL Low 4.6-6.2 [facility] Comment on above: Order Comment: Order Date: 01/06/25 Order Info: 4548-4 - A1C Performed By: #### L 502.0250, L100.0100, L501.9985, L500.4050, L500.4100 #### [facility] [address] [place], [address] RDW SD 43.3 fl Normal 35.1-43.9 [facility] Comment on above: Order Comment: Order Date: 01/06/25 Order Info: 4548-4 - A1C Performed By: #### L 502.0250, L100.0100, L501.9985, L500.4050, L500.4100 #### [facility] [address] [place], [address] WBC (Bld) [#/Vol] 11.1 10*3/uL High 4.4-11.0 [facility] Comment on above: Order Comment: Order Date: 01/06/25 Order Info: 4548-4 - A1C Performed By: #### L 502.0250, L100.0100, L501.9985, L500.4050, L500.4100 #### [facility] [address] [place], [address] Comprehensive Metabolic Prof ilon 07-13-2025 Albumin [Mass/Vol] 4.0 g/dL Normal 3.4-4.8 [facility] Comment on above: Order Comment: Order Date: 01/06/25 Order Info: 4548-4 - A1C Performed By: #### L 502.0250, L100.0100, L501.9985, L500.4050, L500.4100 #### [facility] [address] [place], [address] Albumin/Globulin [Mass ratio] 1.7 {ratio} Normal 0.9-2.4 [facility] Comment on above: Order Comment: Order Date: 01/06/25 Order Info: 4548-4 - A1C Performed By: #### L 502.0250, L100.0100, L501.9985, L500.4050, L500.4100 #### [facility] [address] [place], [address] ALK PHOS 57 U/L Normal 40-129 [facility] Comment on above: Order Comment: Order Date: 01/06/25 Order Info: 4548-4 - A1C Performed By: #### L 502.0250, L100.0100, L501.9985, L500.4050, L500.4100 #### [facility] [address] [place], [address] ALT [Catalytic activity/Vol] 23 U/L Normal <=46 [facility] Comment on above: Order Comment: Order Date: 01/06/25 Order Info: 4548-4 - A1C Performed By: #### L 502.0250, L100.0100, L501.9985, L500.4050, L500.4100 #### [facility] [address] [place], [address] AST [Catalytic activity/Vol] 23 U/L Normal <=37 [facility] Comment on above: Order Comment: Order Date: 01/06/25 Order Info: 4548-4 - A1C Performed By: #### L 502.0250, L100.0100, L501.9985, L500.4050, L500.4100 #### [facility] [address] [place], [address] Bilirubin [Mass/Vol] 0.46 mg/dL Normal 0.00-1.30 [facility] Comment on above: Order Comment: Order Date: 01/06/25 Order Info: 4548-4 - A1C Performed By: #### L 502.0250, L100.0100, L501.9985, L500.4050, L500.4100 #### [facility] [address] [place], [address] BUN/CRE 14.5 RATIO Normal 10-20 [facility] Comment on above: Order Comment: Order Date: 01/06/25 Order Info: 4548-4 - A1C Performed By: #### L 502.0250, L100.0100, L501.9985, L500.4050, L500.4100 #### [facility] [address] [place], [address] Calcium [Mass/Vol] 9.2 mg/dL Normal 7.6-11.0 [facility] Comment on above: Order Comment: Order Date: 01/06/25 Order Info: 4548-4 - A1C Performed By: #### L 502.0250, L100.0100, L501.9985, L500.4050, L500.4100 #### [facility] [address] [place], [address] Chloride [Moles/Vol] 99 mmol/L Normal 98-108 [facility] Comment on above: Order Comment: Order Date: 01/06/25 Order Info: 4548-4 - A1C Performed By: #### L 502.0250, L100.0100, L501.9985, L500.4050, L500.4100 #### [facility] [address] [place], [address] CO2 [Moles/Vol] 25.2 mmol/L Normal 21.0-32.0 [facility] Comment on above: Order Comment: Order Date: 01/06/25 Order Info: 4548-4 - A1C Performed By: #### L 502.0250, L100.0100, L501.9985, L500.4050, L500.4100 #### [facility] [address] [place], [address] Creatinine [Mass/Vol] 1.10 mg/dL Normal 0.70-1.20 [facility] Comment on above: Order Comment: Order Date: 01/06/25 Order Info: 4548-4 - A1C Performed By: #### L 502.0250, L100.0100, L501.9985, L500.4050, L500.4100 #### [facility] [address] [place], [address] GAP 13 Normal 5-15 [facility] Comment on above: Order Comment: Order Date: 01/06/25 Order Info: 4548-4 - A1C Performed By: #### L 502.0250, L100.0100, L501.9985, L500.4050, L500.4100 #### [facility] [address] [place], [address] GFR/1.73 sq M.predicted among non-blacks MDRD (S/P/Bld) [Vol rate/Area] 74 mL/min/{1.73_m2} Normal >60 [facility] Comment on above: Order Comment: Order Date: 01/06/25 Order Info: 4548-4 - A1C Result Comment: mL/m in/1.73m2 CKD-EPI Creatinine Equation (2020) Performed By: #### L 502.0250, L100.0100, L501.9985, L500.4050, L500.4100 #### [facility] [address] [place], [address] Globulin (S) [Mass/Vol] 2.4 g/dL Normal 2.2-4.2 [facility] Comment on above: Order Comment: Order Date: 01/06/25 Order Info: 4548-4 - A1C Performed By: #### L 502.0250, L100.0100, L501.9985, L500.4050, L500.4100 #### [facility] [address] [place], [address] Glucose [Mass/Vol] 141 mg/dL High 70-99 [facility] Comment on above: Order Comment: Order Date: 01/06/25 Order Info: 4548-4 - A1C Performed By: #### L 502.0250, L100.0100, L501.9985, L500.4050, L500.4100 #### [facility] [address] [place], [address] Potassium [Moles/Vol] 4.6 mmol/L Normal 3.3-5.1 [facility] Comment on above: Order Comment: Order Date: 01/06/25 Order Info: 4548-4 - A1C Performed By: #### L 502.0250, L100.0100, L501.9985, L500.4050, L500.4100 #### [facility] [address] [place], [address] Sodium [Moles/Vol] 137 mmol/L Normal 133-145 [facility] Comment on above: Order Comment: Order Date: 01/06/25 Order Info: 4548-4 - A1C Performed By: #### L 502.0250, L100.0100, L501.9985, L500.4050, L500.4100 #### [facility] [address] [place], [address] T PROT 6.3 g/dL Normal 5.9-8.4 [facility] Comment on above: Order Comment: Order Date: 01/06/25 Order Info: 4548-4 - A1C Performed By: #### L 502.0250, L100.0100, L501.9985, L500.4050, L500.4100 #### [facility] [address] [place], [address] Urea nitrogen [Mass/Vol] 16 mg/dL Normal 4-19 [facility] Comment on above: Order Comment: Order Date: 01/06/25 Order Info: 4548-4 - A1C Performed By: #### L 502.0250, L100.0100, L501.9985, L500.4050, L500.4100 #### [facility] [address] [place], [address] Hemoglobin A1con 07-13-2025 HbA1c (Bld) [Mass fraction] 6.5 % High <=5.6 [facility] Comment on above: Order Comment: Order Date: 01/06/25 Order Info: 4548-4 - A1C Result Comment: Norm al < 5.7 % Prediabetic 5.7 - 6.4 % Diabetic >or= 6.5 % Please note range changes. Performed By: #### L 502.0250, L100.0100, L501.9985, L500.4050, L500.4100 #### [facility] [address] [place], [address] Lipid Profileon 07-13-2025 CHOL:HDL 3.46 Normal [facility] Comment on above: Order Comment: Order Date: 01/06/25 Order Info: 4548-4 - A1C Performed By: #### L 502.0250, L100.0100, L501.9985, L500.4050, L500.4100 #### [facility] [address] [place], [address] Cholesterol [Mass/Vol] 121 mg/dL Normal <=200 [facility] Comment on above: Order Comment: Order Date: 01/06/25 Order Info: 4548-4 - A1C Result Comment: Chol esterol level, Desirable <200 mg/dL Borderline high cholesterol 200-239 mg/dL High cholesterol >=240 mg/dL Recommendations of the NCEP Adult Treatment Panel for the following risk-cutoff thresholds for the [place] population. Performed By: #### L 502.0250, L100.0100, L501.9985, L500.4050, L500.4100 #### [facility] [address] [place], [address] Cholesterol in HDL [Mass/Vol] 35 mg/dL Low [facility] Comment on above: Order Comment: Order Date: 01/06/25 Order Info: 4548-4 - A1C Result Comment: Rula onal Cholesterol Education Program (NCEP) guidelines: <40 mg/dL: Low HDL-cholesterol (major risk factor for CHD) >= 60 mg/dL: High HDL-cholesterol (negative risk factor for CHD) HDL-cholesterol is affected by a number of factors, e.g. smoking, exercise, hormones, sex and age. Performed By: #### L 502.0250, L100.0100, L501.9985, L500.4050, L500.4100 #### [facility] [address] [place], [address] Cholesterol in LDL [Mass/Vol] 32 mg/dL Normal [facility] Comment on above: Order Comment: Order Date: 01/06/25 Order Info: 4548-4 - A1C Result Comment: Bord ldzqos=128-245 mg/dL Higher Ysgq=277 mg/dL or greater Friedwald Equation for LDL-C Performed By: #### L 502.0250, L100.0100, L501.9985, L500.4050, L500.4100 #### [facility] [address] [place], [address] Cholesterol in VLDL [Mass/Vol] 54 mg/dL High 5-40 [facility] Comment on above: Order Comment: Order Date: 01/06/25 Order Info: 4548-4 - A1C Performed By: #### L 502.0250, L100.0100, L501.9985, L500.4050, L500.4100 #### [facility] [address] [place], [address] Triglyceride [Mass/Vol] 268 mg/dL High [facility] Comment on above: Order Comment: Order Date: 01/06/25 Order Info: 4548-4 - A1C Result Comment: The drugs N-Acetylcysteine and Metamizole may falsely depress this assay. Normal range: <150 mg/dL Borderline High: 150-199 mg/dL High: 200-499 mg/dL Very High: >500 mg/dL Performed By: #### L 502.0250, L100.0100, L501.9985, L500.4050, L500.4100 #### [facility] [address] [place], [address] MR/BMS.BPjennifer 07-13-2025 MR/BMS.BP [address], [address] [place] [address] OFFICE VISIT Date of Service: 07/13/25 MR#: [id number] Acct: [id number] Name: NIKO HUITRON Rep #: [id number] : 1960 Provider: SHIKHA currie Age/Sex: 64/M Location: BMS.BP Status: Signed Intake Vital Signs 01/10/25 08:05 05/31/25 07:54 07/13/25 08:55 Height 6 ft 1 in 6 ft 1 in 6 ft 1 in Weight: 264 lb BMI 34.8 BP 108/65 Blood Pressure Location Lt brachial Position Sitting Respiration 16 Pulse 52 L Pulse Source Monitor BP Intake Visit Reasons: 6 M FU Allergies No Known Allergies Allergy (Verified 05/31/25 07:57) Have you fallen in the past year?: No PFSH Medical History URI (upper respiratory infection) Carotid stenosis Hematoma of neck Wears glasses Alcohol use Bipolar disorder High cholesterol Seizures Non-smoker History of echocardiogram History of heart attack Hypertension Cardiology follow-up encounter History of stress test Osteoarthritis of left knee Carotid stenosis, bilateral Shortness of breath Bipolar 1 disorder Essential hypertension Pharyngitis Acute bronchitis Chest pain Shoulder pain Arthritis Surgical History History of carotid endarterectomy History of right-sided carotid endarterectomy Hx of transurethral resection of prostate Hx of total knee arthroplasty History of colonoscopy ( 10/2022) History of bursectomy History of arthroscopy of knee History of carpal tunnel release Family History Father Myocardial infarction Hypertension Alcoholism Mother Cancer Diabetes Brother Heart disease Hypertension Alcoholism Cancer prostate Grandfather Myocardial infarction CVA (cerebral vascular accident) Carotid arterial disease Social History Smoking Status: Never smoker alcohol intake: current alcohol intake frequency: 0-2 drinks per day Alcohol type: beer substance use type: does not use HPI History of Present Illness History provided by: patient HPI: Niko Huitron is a 64 year old male patient presenting today for a follow up evaluation. Has been working outside more with warm weather. Reports he has been doing well since last appointment. Has been compliant with medication. Reprots mood has been good since last appointment. Denies feelings of depression. Denies SI/HI. Denies recent feelings of anxiety. Appetite has been good. Has lost about 5 pounds since May. Does voice concerns over a tremor and has previously taken propranolol in the past but has since started on metoprolol. Has been sleeping well since last appointment. 7-8 hours per night on average. Previous similar episode: Yes Age of first onset of symptoms: 51-60 years Review of Systems Constitutional Reports: change in weight (loss); Denies: fever(s), chills or fatigue Eyes Denies: change in vision Ears, Nose, Mouth, Throat Denies: throat pain or neck pain Cardiovascular Reports: dyspnea (mild when bending over); Denies: chest pain or palpitations Respiratory Reports: dyspnea (mild when bending over); Denies: wheezing Gastrointestinal Denies: abdominal pain, nausea, vomiting or diarrhea Genitourinary Denies: dysuria, urinary frequency or urinary urgency Musculoskeletal Reports: back pain and joint pain (r knee ); Denies: neck pain Integumentary/Breast Denies: rash, pruritus or erythema Neurological Denies: headache(s) Psychiatric Denies: anxiety, mood swings, panic attacks, change in sleep pattern, hopelessness, loss of interest, irritability, paranoia, memory loss, difficulty concentrating, visual hallucinations, auditory hallucinations, suicidal ideation or homicidal ideation Endocrine Denies: polyuria, polydipsia or fatigue Hematologic/Lymphatic Denies: easy bruising Allergic/Immunologic Denies: wheezing Exam Mental Status Exam - Psych Appearance casually dressed, adequately groomed, no apparent distress and well kempt Attitude cooperative and friendly Activity/Motor Behavior appropriate eye contact and tremor (slight tremor in LUE, states it happened post procedure to that arm) Speech regular rate, regular volume and regular prosody Mood happy Affect full range Thought Process linear, logical and coherent Thought Content no delusions and no hallucinations Suicidal Ideation none Homicidal Ideation none Attention intact Concentration intact Sensorium/Orientation awake, alert and oriented x3 Memory/Cognition intact Insight good Judgement good Exam Constitutional Common normals: no acute distress, average body habitus and patient o (more content not included)... Normal [facility] Thyroid Stim Hormone (TSH)on 07-13-2025 TSH 3.150 uIU/mL Normal 0.300-4.200 [facility] Comment on above: Order Comment: Order Date: 01/06/25 Order Info: 4548-4 - A1C Performed By: #### L 502.0250, L100.0100, L501.4026, L500.4050, L500.4100 #### [facility] [address] [place], [address] Lithiumon 06-30-2025 LI 0.47 mmol/L Low 0.60-1.20 [facility] Comment on above: Order Comment: [id number] Performed By: #### L 501.9060 ####[facility] [address] [place], [address] Neurology Visit Reporton Neurology Visit Report [facility] [address], [address] [place], [place] [address] OFFICE VISIT Date of Service: 05/31/25 MR#: [id number] Acct: [id number] Name: NIKO HUITRON Rep #: [id number] : 1960 Provider: Dr. Hudson francisco MD Age/Sex: 64/M Location: [facility] Status: Signed HPI HPI Chief Complaint: Office Procedures Neurology POC Injection: 1-2 Sites Details:: Procedure note Bilateral lumbar paraspinal muscle trigger point injections. The patient reports low back pain. His last lumbar trigger point injections were of benefit with pain reduction lasting about 6 weeks. Written informed consent was obtained Physical exam: Neuro: The patient is awake and alert and responds appropriately Back: Bilateral lumbar paraspinal muscle point tenderness is noted The injection sites were prepped with alcohol swabs. Methylprednisolone 40 mg IM and bupivacaine 0.75% 5 mL IM was administered in the right lumbar paraspinal muscles. Methylprednisolone 40 mg IM and bupivacaine 0.75% 5.5 mL IM was administered in the left lumbar paraspinal muscles. The injection sites were bandaged. The patient tolerated the procedure well. There were no complications. Two 40 mg vials of methylprednisolone were used. No methylprednisolone was discarded. Office Meds methylprednisolone acetate 40 mg/mL suspension for injection Performing Provider: Hudson Almanzar MD Performing Location: [facility] Administered by: Hudson Almanzar MD on 05/31/25 08:39 Dose Route Admin Location Dispensed Lot Number Expiration Date NDC Man ufacturer 80 mg IM 2 mL [id number] 12/24/26 [address]-6 [employer] Assessment and Plan Assessment and Plan (1) Low back pain: Status: Chronic Qualifiers: Chronicity: unspecified Back pain laterality: unspecified Sciatica presence: unspecified whether sciatica present Qualified Code(s): M54.50 - Low back pain, unspecified (2) Myalgia: Status: Acute Orders: Orders Neurology POC Today M54.50 - Low back pain, unspecified, M79.10 - Myalgia, unspecified site Methylprednisolone 40mg Today M54.50 - Low back pain, unspecified, M79.10 - Myalgia, unspecified site Intake Vital Signs 02/28/25 07:55 05/31/25 07:54 Height 6 ft 1 in 6 ft 1 in Weight: 260 lb 262 lb BMI 34.2 34.5 BP 130/76 H 107/64 Blood Pressure Location Lt brachial Lt brachial Position Sitting Sitting Respiration 16 16 Pulse 71 67 Pulse Source Monitor Monitor Temp 98.2 F 98.0 F Temp Source Temporal Temporal Pulse Oximetry (%) 97 95 Oxygen Delivery Method room air room air Intake Visit Reasons: trigger point injection Chief Complaint: Administrative Assistant Required: No Accompanied by: Self Allergies No Known Allergies Allergy (Verified 05/31/25 07:57) Have you fallen in the past year?: No PFSH Medical History URI (upper respiratory infection) Carotid stenosis Hematoma of neck Wears glasses Alcohol use Bipolar disorder High cholesterol Seizures Non-smoker History of echocardiogram History of heart attack Hypertension Cardiology follow-up encounter History of stress test Osteoarthritis of left knee Carotid stenosis, bilateral Shortness of breath Bipolar 1 disorder Essential hypertension Pharyngitis Acute bronchitis Chest pain Shoulder pain Arthritis Surgical History History of carotid endarterectomy History of right-sided carotid endarterectomy Hx of transurethral resection of prostate Hx of total knee arthroplasty History of colonoscopy ( 10/2022) History of bursectomy History of arthroscopy of knee History of carpal tunnel release Family History Father Myocardial infarction Hypertension Alcoholism Mother Cancer Diabetes Brother Heart disease Hypertension Alcoholism Cancer prostate Grandfather Myocardial infarction CVA (cerebral vascular accident) Carotid arterial disease Social History (Reviewed 12/22/24 @ 08:16 by Annette Smith Smoking Status: Never smoker alcohol intake: current alcohol intake frequency: 0-2 drinks per day Alcohol type: beer substance use type: does not use Clinical Quality Measures Falls Risk Screening/Assistive Devices Have you fallen in the past year?: No Coding Level of Care Code Attention Ana Diagnoses Low back pain, unspecified back pain laterality, unspecified chronicity, unspecified whether sciatica present M54.50 Chronicity: unspecified Back pain laterality: unspecified Sciatica presence: unspecified whether sciatica present Myalgia M79.10 CPT Codes Injection - Injection: 1-2 Sites (74524) 05/31/25 0844 Date (more content not included)... [facility] CNOVSPon 05-03-2025 CNOVSP Visit (SP) Office (HEMAWS) NIKO HUITRON ([id number]) 1960 M Date Time Provider Department 05/03/25 11:30 AM CARLOS STOREY HEMBEENA During your visit today, we recorded the following information about you: Temperature Pulse Blood pressure Weight 98.2 degrees 59/minute 110/63 119.5 kg Height 1.83 m Carlos Storey DO 05/03/2025 3:33 PM Signed Oncologic problem(s): 1) IgG kappa monoclonal gammopathy. 2) IgM lambda monoclonal gammopathy. 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 4) Low level complement fixing AIHA. HPI: The patient is a 64-year-old male with a PMH significant for HTN, [...] had an EMG performed on 01/15/2022 at [facility]. The study was an abnormal test [...] or with exertion. He was admitted to [facility] in July 2020 for an episode of chest pain. [place] was ruled out. He underwent a stress [...] Had left knee replacement 10/2021. Had right carotid endarterectomy by Dr. Gilbert 12/09/2022. On Plavix and ASA. Operative report reviewed in [facility] system. Was noted to have tremor by his neurologist--elevated ammonia level--started on Lactulose. Stopped drinking altogether in 08/2022. Hasn't had alcohol since. Has lost ~30 lbs since April by quitting drinking and cutting calories. I feel much better. Presents for ongoing oncologic management. OV 11/06/2023: Saw neurologist at [facility]. Received 4 injections total--2 cervical and 2 lumbar. On medical marijuana. No alcohol. Home blood glucose 150-160s. Occasional numbness in fingertips--comes and goes--stable. Sensory neuropathy LEs stable--numb and burning from mid calf to toes--stable. Not on any symptomatic medication. Bal (more content not included)... Normal [facility] B2 Microglob SerPl-mCncon Mqrp-3-Xzxlbqlikmtok [Mass/Vol] 1.8 ug/mL Normal <3.[address] [facility] Comment on above: Order Comment: Speci men Type: BLOOD SPECIMEN Ordering Facility: [facility] Address: [address] [place] [address] Result Comment: Beta -2 Microglobulin test is performed using the [employer] immunoturbidimetric method. Results obtained with different methods or kits cannot be used interchangeably. Performed By: #### 2 4323-8, 2532-0 #### [facility] CLIA [id number] [address] [place] [address] [place] CBC W Auto Differential pane l (Bld)on 05-01-2025 Basophils (Bld) [#/Vol] 0.10 10*3/uL Normal <0.[address] [facility] Comment on above: Order Comment: Speci men Type: BLOOD SPECIMEN Ordering Facility: [facility] Address: [address] [place] [address] Performed By: #### 2 532-0, 63410-2 #### [facility] CLIA [id number] [address] [place] [address] [place] Basophils/100 WBC (Bld) 0.6 % Normal [facility] Comment on above: Order Comment: Speci men Type: BLOOD SPECIMEN Ordering Facility: [facility] Address: [address] [place] [address] Performed By: #### 2 532-0, 47487-9 #### [facility] CLIA [id number] [address] [place] [address] [place] Differential cell count method Nom (Bld) Auto Normal [facility] Comment on above: Order Comment: Speci men Type: BLOOD SPECIMEN Ordering Facility: [facility] Address: [address] [place] [address] Performed By: #### 2 532-0, 91674-1 #### [facility] CLIA [id number] [address] [place] [address] [place] Eosinophils (Bld) [#/Vol] 0.03 10*3/uL Normal <0.[address] [facility] Comment on above: Order Comment: Speci men Type: BLOOD SPECIMEN Ordering Facility: [facility] Address: [address] [place] [address] Performed By: #### 2 532-0, 44975-7 #### [facility] CLIA [id number] [address] [place] [address] [place] Eosinophils/100 WBC (Bld) 0.2 % Normal [facility] Comment on above: Order Comment: Speci men Type: BLOOD SPECIMEN Ordering Facility: [facility] Address: [address] [place] [address] Performed By: #### 2 532-0, 76308-7 #### [facility] CLIA [id number] [address] [place] [address] [place] Erythrocyte distribution width (RBC) [Ratio] 13.5 % Normal 11.5-15.[address] [facility] Comment on above: Order Comment: Speci men Type: BLOOD SPECIMEN Ordering Facility: [facility] Address: [address] [place] [address] Performed By: #### 2 532-0, 35137-8 #### [id number] [address] [place] [address] [place] Hematocrit (Bld) [Volume fraction] 39.8 % Normal 39.0-51.[address] [facility] Comment on above: Order Comment: Speci men Type: BLOOD SPECIMEN Ordering Facility: [facility] Address: [address] [place] [address] Performed By: #### 2 532-0, 45497-2 #### [facility] [id number] [address] [place] [address] [place] Hemoglobin (Bld) [Mass/Vol] 13.5 g/dL Normal 13.0-17.[address] [facility] Comment on above: Order Comment: Speci men Type: BLOOD SPECIMEN Ordering Facility: [facility] Address: [address] [place] [address] Performed By: #### 2 532-0, 10451-2 #### [facility] CLIA [id number] [address] [place] [address] [place] Immature granulocytes (Bld) [#/Vol] 0.14 10*3/uL High <0.[address] [facility] Comment on above: Order Comment: Speci men Type: BLOOD SPECIMEN Ordering Facility: [facility] Address: [address] [place] [address] Performed By: #### 2 532-0, 72963-0 #### [facility] CLIA [id number] [address] [place] [address] [place] Immature granulocytes/100 WBC (Bld) 0.8 % Normal [facility] Comment on above: Order Comment: Speci men Type: BLOOD SPECIMEN Ordering Facility: [facility] Address: [address] [place] [address] Performed By: #### 2 532-0, 13385-9 #### [facility] CLIA [id number] [address] [place] [address] [place] Lymphocytes (Bld) [#/Vol] 2.47 10*3/uL Normal 1.00-4.[address] [facility] Comment on above: Order Comment: Speci men Type: BLOOD SPECIMEN Ordering Facility: [facility] Address: [address] [place] [address] Performed By: #### 2 532-0, 75990-2 #### [facility] CLIA [id number] [address] [place] [address] [place] Lymphocytes/100 WBC (Bld) 14.7 % Normal [facility] Comment on above: Order Comment: Speci men Type: BLOOD SPECIMEN Ordering Facility: [facility] Address: [address] [place] [address] Performed By: #### 2 532-0, 05279-5 #### [facility] CLIA [id number] [address] [place] [address] [place] MCH (RBC) [Entitic mass] 29.4 pg Normal 26.0-34.[address] [facility] Comment on above: Order Comment: Speci men Type: BLOOD SPECIMEN Ordering Facility: [facility] Address: [address] [place] [address] Performed By: #### 2 532-0, 03444-0 #### [facility] CLIA [id number] [address] [place] [address] [place] MCHC (RBC) [Mass/Vol] 33.9 g/dL Normal 30.5-36.0 [facility] Comment on above: Order Comment: Speci men Type: BLOOD SPECIMEN Ordering Facility: [facility] Address: [address] [place] [address] Performed By: #### 2 532-0, 87362-9 #### [facility] CLIA [id number] [address] [place] [address] [place] MCV (RBC) [Entitic vol] 86.7 fL Normal 80.0-100.[address] [facility] Comment on above: Order Comment: Speci men Type: BLOOD SPECIMEN Ordering Facility: [facility] Address: [address] [place] [address] Performed By: #### 2 532-0, 92605-8 #### [facility] CLIA [id number] [address] [place] [address] [place] Monocytes (Bld) [#/Vol] 1.38 10*3/uL High <0.[address] [facility] Comment on above: Order Comment: Speci men Type: BLOOD SPECIMEN Ordering Facility: [facility] Address: [address] [place] [address] Performed By: #### 2 532-0, 08131-7 #### [facility] CLIA [id number] [address] [place] [address] [place] Monocytes/100 WBC (Bld) 8.2 % Normal [facility] Comment on above: Order Comment: Speci men Type: BLOOD SPECIMEN Ordering Facility: [facility] Address: [address] [place] [address] Performed By: #### 2 532-0, 38655-7 #### [facility] CLIA [id number] [address] [place] [address] [place] Neutrophils (Bld) [#/Vol] 12.71 10*3/uL High 1.45-7.[address] [facility] Comment on above: Order Comment: Speci men Type: BLOOD SPECIMEN Ordering Facility: [facility] Address: [address] [place] [address] Performed By: #### 2 532-0, 89722-7 #### [facility] CLIA [id number] [address] [place] [address] [place] Neutrophils/100 WBC (Bld) 75.5 % Normal [facility] Comment on above: Order Comment: Speci men Type: BLOOD SPECIMEN Ordering Facility: [facility] Address: [address] [place] [address] Performed By: #### 2 532-0, 42458-4 #### [facility] CLIA [id number] [address] [place] [address] [place] Nucleated RBC (Bld) [#/Vol] 10*3/uL Normal <0.[address] [facility] Comment on above: Order Comment: Speci men Type: BLOOD SPECIMEN Ordering Facility: [facility] Address: [address] [place] [address] Performed By: #### 2 532-0, 90933-1 #### [facility] CLIA [id number] [address] [place] [address] [place] Nucleated RBC/100 WBC (Bld) [Ratio] 0.0 /[address] [facility] Comment on above: Order Comment: Speci men Type: BLOOD SPECIMEN Ordering Facility: [facility] Address: [address] [place] [address] Performed By: #### 2 532-0, 05218-3 #### [facility] CLIA [id number] [address] [place] [address] [place] Platelet mean volume (Bld) [Entitic vol] 9.4 fL Normal 9.0-12.[address] [facility] Comment on above: Order Comment: Speci men Type: BLOOD SPECIMEN Ordering Facility: [facility] Address: [address] [place] [address] Performed By: #### 2 532-0, 81040-3 #### [facility] CLIA [id number] [address] [place] [address] [place] Platelets (Bld) [#/Vol] 298 10*3/uL Normal 150-[address] [facility] Comment on above: Order Comment: Speci men Type: BLOOD SPECIMEN Ordering Facility: [facility] Address: [address] [place] [address] Performed By: #### 2 532-0, 59152-3 #### [facility] CLIA [id number] [address] [place] [address] [place] RBC (Bld) [#/Vol] 4.59 10*6/uL Normal 4.20-6.00 [facility] Comment on above: Order Comment: Speci men Type: BLOOD SPECIMEN Ordering Facility: [facility] Address: [address] [place] [address] Performed By: #### 2 532-0, 29970-6 #### [facility] CLIA [id number] [address] [place] [address] [place] WBC (Bld) [#/Vol] 16.83 10*3/uL High 3.70-11.00 [facility] Comment on above: Order Comment: Speci men Type: BLOOD SPECIMEN Ordering Facility: [facility] Address: [address] [place] [address] Performed By: #### 2 532-0, 16629-2 #### [facility] CLIA [id number] [address] [place] [address] [place] Comprehensive metabolic 2000 panelon 05-01-2025 Albumin [Mass/Vol] 4.5 g/dL Normal 3.9-4.9 [facility] Comment on above: Order Comment: Speci men Type: BLOOD SPECIMEN Ordering Facility: [facility] Address: [address] [place] [address] Performed By: #### 2 532-0, 10967-2 #### [facility] CLIA [id number] [address] [place] [address] [place] ALP [Catalytic activity/Vol] 63 U/L Normal 38-[address] [facility] Comment on above: Order Comment: Speci men Type: BLOOD SPECIMEN Ordering Facility: [facility] Address: [address] [place] [address] Performed By: #### 2 532-0, 07045-1 #### [facility] CLIA [id number] [address] [place] [address] [place] ALT [Catalytic activity/Vol] 49 U/L Normal 10-[address] [facility] Comment on above: Order Comment: Speci men Type: BLOOD SPECIMEN Ordering Facility: [facility] Address: [address] [place] [address] Performed By: #### 2 532-0, 71973-0 #### [facility] CLIA [id number] [address] [place] [address] [place] Anion gap [Moles/Vol] 14 mmol/L Normal 8-15 [facility] Comment on above: Order Comment: Speci men Type: BLOOD SPECIMEN Ordering Facility: [facility] Address: [address] [place] [address] Performed By: #### 2 532-0, 57488-7 #### [facility] CLIA [id number] [address] [place] [address] [place] AST [Catalytic activity/Vol] 40 U/L Normal 14-[address] [facility] Comment on above: Order Comment: Speci men Type: BLOOD SPECIMEN Ordering Facility: [facility] Address: [address] [place] [address] Performed By: #### 2 532-0, 41239-4 #### [facility] CLIA [id number] [address] [place] [address] [place] Bilirubin [Mass/Vol] 0.2 mg/dL Normal 0.2-1.3 [facility] Comment on above: Order Comment: Speci men Type: BLOOD SPECIMEN Ordering Facility: [facility] Address: [address] [place] [address] Performed By: #### 2 532-0, 53526-4 #### [facility] CLIA [id number] [address] [place] [address] [place] Calcium [Mass/Vol] 9.3 mg/dL Normal 8.5-10.2 [facility] Comment on above: Order Comment: Speci men Type: BLOOD SPECIMEN Ordering Facility: [facility] Address: [address] [place] [address] Performed By: #### 2 532-0, 53969-2 #### [facility] CLIA [id number] [address] [place] [address] [place] Chloride [Moles/Vol] 100 mmol/L Normal 98-107 [facility] Comment on above: Order Comment: Speci men Type: BLOOD SPECIMEN Ordering Facility: [facility] Address: [address] [place] [address] Performed By: #### 2 532-0, 84014-2 #### [facility] CLIA [id number] [address] [place] [address] [place] CO2 [Moles/Vol] 23 mmol/L Normal 22-[address] [facility] Comment on above: Order Comment: Speci men Type: BLOOD SPECIMEN Ordering Facility: [facility] Address: [address] [place] [address] Performed By: #### 2 532-0, 50426-3 #### [facility] CLIA [id number] [address] [place] [address] [place] Creatinine [Mass/Vol] 0.87 mg/dL Normal 0.73-1.22 [facility] Comment on above: Order Comment: Karan dent Type: BLOOD SPECIMEN Ordering Facility: [facility] Address: [address] [place] [address] Performed By: #### 2 532-0, 01631-4 #### [id number] [address] [place] [address] [place] Creatinine and Glomerular filtration rate.predicted panel (S/P/Bld) 95 mL/min/1.73m??? Normal >=[address] [facility] Comment on above: Order Comment: Karan dent Type: BLOOD SPECIMEN Ordering Facility: [facility] Address: [address] [place] [address] Result Comment: Jillian mated Glomerular Filtration Rate (eGFR) is calculated using the 2020 CKD-EPI creatinine equation. This equation utilizes serum creatinine, sex, and age as parameters. The creatinine assay has traceable calibration to isotope dilution-mass spectrometry. Refer to KDIGO guidelines for clinical interpretation. In patients with unstable renal function, e.g. those with acute kidney injury, the eGFR may not accurately reflect actual GFR. Performed By: #### 2 532-0, 75726-2 #### [facility] [id number] [address] [place] [address] [place] Glucose [Mass/Vol] 168 mg/dL High 74-99 [facility] Comment on above: Order Comment: Kishai jailene Type: BLOOD SPECIMEN Ordering Facility: [facility] Address: [address] [place] [address] Result Comment: The [place] [employer] (ADA) provides guidance for cutoff values for fasting glucose and random glucose. The ADA defines fasting as no caloric intake for at least 8 hours. Fasting plasma glucose results between 100 to 125 mg/dL indicate increased risk for diabetes (prediabetes). Fasting plasma glucose results greater than or equal to 126 mg/dL meet the criteria for diagnosis of diabetes. In the absence of unequivocal hyperglycemia, results should be confirmed by repeat testing. In a patient with classic symptoms of hyperglycemia or hyperglycemic crisis, random plasma glucose results greater than or equal to 200 mg/dL meet the criteria for diagnosis of diabetes. Reference: Standards of Medical Care in Diabetes 2016, [place] [employer]. Diabetes Care. 2016.39(Suppl 1). Performed By: #### 2 532-0, 38492-5 #### [facility] CLIA [id number] [address] [place] [address] [place] Potassium [Moles/Vol] 4.4 mmol/L Normal 3.7-5.1 [facility] Comment on above: Order Comment: Speci men Type: BLOOD SPECIMEN Ordering Facility: [facility] Address: [address] [place] [address] Performed By: #### 2 532-0, 09096-4 #### [facility] CLIA [id number] [address] [place] [address] [place] Protein [Mass/Vol] 6.6 g/dL Normal 6.3-8.0 [facility] Comment on above: Order Comment: Kishai jailene Type: BLOOD SPECIMEN Ordering Facility: [facility] Address: [address] [place], [place] [address] Performed By: #### 2 532-0, 13359-9 #### [facility] CLIA [id number] [address] [place] [address] [place] Sodium [Moles/Vol] 137 mmol/L Normal 136-144 [facility] Comment on above: Order Comment: Speci men Type: BLOOD SPECIMEN Ordering Facility: [facility] Address: [address] [place] [address] Performed By: #### 2 532-0, 79884-2 #### [facility] CLIA [id number] [address] [place] [address] [place] Urea nitrogen [Mass/Vol] 16 mg/dL Normal 9-[address] [facility] Comment on above: Order Comment: Specsanjuana dent Type: BLOOD SPECIMEN Ordering Facility: [facility] Address: [address] [place] [address] Performed By: #### 2 532-0, 28196-6 #### [facility] CLIA [id number] [address] [place] [address] [place] IMMUNOFIXATION SCREEN, SERUM on 05-01-2025 INTERPRETATION (MPA) Normal [facility] Comment on above: Order Comment: Specsanjuana dent Type: BLOOD SPECIMEN Ordering Facility: [facility] Address: [address] [place] [address] Result Comment: Atyp ical restricted bands are present in the IgG and kappa regions. Consistent with IgG kappa monoclonal gammopathy. Region of restricted mobility in IgM anastacia without matching region in light chain lanes, consistent with an IgM containing monoclonal gammopathy. The absence of a visible light chain could be due to lack of analytical sensitivity or could indicate that the patient has heavy chain disease, a rare form of monoclonal gammopathy. Suggest urine monoclonal protein analysis and/or serum free light chain measurement to further evaluate for a possible monoclonal gammopathy. Performed By: #### I FESC #### [facility] CLIA [id number] [address] [place] [address] [place] MPA RESULT M protein is present. Abnormal No M p rotein is identified. [facility] Comment on above: Order Comment: Karan dent Type: BLOOD SPECIMEN Ordering Facility: [facility] Address: [address] [place] [address] Performed By: #### I FESC #### [facility] CLIA [id number] [address] [place] [address] OF URI STAFF REVIEW (MPA) Reviewed by Dr. Dillon Kirby MD [facility] Comment on above: Order Comment: Karan dent Type: BLOOD SPECIMEN Ordering Facility: [facility] Address: [address] [place] [address] Performed By: #### I FESC #### [facility] CLIA [id number] [address] [place] [address] [place] IMMUNOGLOBULINS,IGG,IGA,IGMo n 05-01-2025 IgA [Mass/Vol] 92 mg/dL Normal 70-[address] [facility] Comment on above: Order Comment: Speci men Type: BLOOD SPECIMEN Ordering Facility: [facility] Address: [address] [place] [address] Performed By: #### 2 532-0, 18161-1 #### [facility] CLIA [id number] [address] [place] [address] [place] IgG [Mass/Vol] 827 mg/dL Normal 700-[address] [facility] Comment on above: Order Comment: Speci men Type: BLOOD SPECIMEN Ordering Facility: [facility] Address: [address] [place] [address] Performed By: #### 2 532-0, 72487-0 #### [facility] CLIA [id number] [address] [place] [address] [place] IgM [Mass/Vol] 243 mg/dL High 40-[address] [facility] Comment on above: Order Comment: Speci men Type: BLOOD SPECIMEN Ordering Facility: [facility] Address: [address] [place] [address] Performed By: #### 2 532-0, 91219-0 #### [facility] CLIA [id number] [address] [place] [address] [place] KAPPA/DOTSON,FREE,SERon 2024 Immunoglobulin light chains.kappa.free (S) [Mass/Vol] 15.1 mg/L Normal 3.3-19.[address] [facility] Comment on above: Order Comment: Speci men Type: BLOOD SPECIMEN Ordering Facility: [facility] Address: [address] [place] [address] Result Comment: Rare ly, increased serum free light chains levels may not be detected or accurately quantified due to prozone phenomenon or in high viscosity samples using this immunoturbidimetric assay. Correlation with other laboratory results and clinical findings is recommended. The [place] Free Light Chain was performed using the Binding Site [employer] immunoturbidimetric method. Result obtained with different assay methods or kits cannot be used interchangeably. Performed By: #### 2 532-0, 14389-8 #### [facility] CLIA [id number] [address] [place] [address] [place] Immunoglobulin light chains.kappa/Immunoglo bulin light chains.lambda (S) [Mass ratio] 1.50 Normal 0.26-1.[address] [facility] Comment on above: Order Comment: Speci men Type: BLOOD SPECIMEN Ordering Facility: [facility] Address: [address] [place] [address] Performed By: #### 2 532-0, 82636-0 #### [facility] CLIA [id number] [address] [place] [address] [place] Immunoglobulin light chains.lambda.free [Mass/Vol] 10.1 mg/L Normal 5.7-26.[address] [facility] Comment on above: Order Comment: Speci men Type: BLOOD SPECIMEN Ordering Facility: [facility] Address: [address] [place] [address] Result Comment: Rare ly, increased serum free light chains levels may not be detected or accurately quantified due to prozone phenomenon or in high viscosity samples using this immunoturbidimetric assay. Correlation with other laboratory results and clinical findings is recommended. The Lambda Free Light Chain was performed using the Binding Site [employer] immunoturbidimetric method. Result obtained with different assay methods or kits cannot be used interchangeably. Performed By: #### 2 532-0, 58648-4 #### [facility] CLIA [id number] [address] [place] [address] [place] LDH SerPl-cCncon 05-01-2025 LDH [Catalytic activity/Vol] 203 U/L Normal 135-[address] [facility] Comment on above: Order Comment: Speci men Type: BLOOD SPECIMEN Ordering Facility: [facility] Address: [address] [place] [address] Performed By: #### 2 532-0, 00508-0 #### [facility] CLIA [id number] [address] [place] [address] [place] PROTEIN ELECTROPHORESIS SERU M (P)on 05-01-2025 Albumin [Mass/Vol] 4.10 g/dL Normal 3.43-5.41 [facility] Comment on above: Order Comment: Speci men Type: BLOOD SPECIMEN Ordering Facility: [facility] Address: [address] [place] [address] Performed By: #### L [id number] #### [facility] CLIA [id number] [address] [place] [address] [place] Alpha 1 globulin Elph [Mass/Vol] 0.27 g/dL Normal 0.18-0.[address] [facility] Comment on above: Order Comment: Speci men Type: BLOOD SPECIMEN Ordering Facility: [facility] Address: [address] [place] [address] Performed By: #### L [id number] #### [facility] CLIA [id number] [address] [place] [address] [place] Alpha 2 globulin Elph [Mass/Vol] 0.57 g/dL Normal 0.42-0.[address] [facility] Comment on above: Order Comment: Speci men Type: BLOOD SPECIMEN Ordering Facility: [facility] Address: [address] [place] [address] Performed By: #### L [id number] #### [facility] CLIA [id number] [address] [place] [address] [place] Beta globulin Elph [Mass/Vol] 0.69 g/dL Normal 0.61-1.[address] [facility] Comment on above: Order Comment: Speci men Type: BLOOD SPECIMEN Ordering Facility: [facility] Address: [address] [place] [address] Performed By: #### L [id number] #### [facility] CLIA [id number] [address] [place] [address] [place] Gamma globulin Elph [Mass/Vol] 0.77 g/dL Normal 0.53-1.[address] [facility] Comment on above: Order Comment: Speci men Type: BLOOD SPECIMEN Ordering Facility: [facility] Address: [address] [place] [address] Performed By: #### L [id number] #### [facility] CLIA [id number] [address] [place] [address] [place] INTERPRETATION COMMENT FOR PROTEIN ELECTROPHORESIS See separate immunofixation report for characterization of monoclonal gammopathy. Normal [facility] Comment on above: Order Comment: Speci men Type: BLOOD SPECIMEN Ordering Facility: [facility] Address: [address] [place] [address] Performed By: #### L [id number] #### [facility] CLIA [id number] [address] [place] [address] [place] M SPIKE CONCENTRATION 2 0.15 g/dL High <=0.[address] [facility] Comment on above: Order Comment: Speci men Type: BLOOD SPECIMEN Ordering Facility: [facility] Address: [address] [place] [address] Performed By: #### L [id number] #### [facility] CLIA [id number] [address] [place] [address] [place] M-PROTEIN LOCATION Gamma Fraction [address] [facility] Comment on above: Order Comment: Speci men Type: BLOOD SPECIMEN Ordering Facility: [facility] Address: [address] [place] [address] Performed By: #### L [id number] #### [facility] CLIA [id number] [address] [place] [address] [place] M-PROTEIN LOCATION 2 Gamma Fraction [address] [facility] Comment on above: Order Comment: Speci men Type: BLOOD SPECIMEN Ordering Facility: [facility] Address: [address] [place] [address] Performed By: #### L [id number] #### [facility] CLIA [id number] [address] [place] [address] [place] Protein Fractions [Interp] An M protein is identified on protein electrophoresis. Abnormal No definitive M protein is identified on protein electrophores is. [facility] Comment on above: Order Comment: Speci men Type: BLOOD SPECIMEN Ordering Facility: [facility] Address: [address] [place] [address] Performed By: #### L [id number] #### [facility] CLIA [id number] [address] [place] [address] [place] Protein.monoclonal Elph [Mass/Vol] 0.21 g/dL High <=0.[address] [facility] Comment on above: Order Comment: Speci men Type: BLOOD SPECIMEN Ordering Facility: [facility] Address: [address] [place] [address] Performed By: #### L [id number] #### [facility] CLIA [id number] [address] [place] [address] [place] SPE STAFF REVIEW Reviewed by Dr. Dillon Kirby MD [facility] Comment on above: Order Comment: Speci men Type: BLOOD SPECIMEN Ordering Facility: [facility] Address: [address] [place] [address] Performed By: #### L [id number] #### [facility] CLIA [id number] [address] [place] [address] [place] Prot SerPl-mCncon 05-01-2025 Protein [Mass/Vol] 6.4 g/dL Normal 6.3-8.0 [facility] Comment on above: Order Comment: Speci men Type: BLOOD SPECIMEN Ordering Facility: [facility] Address: [address] [place] [address] Performed By: #### 2 4323-8, 2532-0 #### [facility] CLIA [id number] [address] [id number] [place] PSA,Total - Annual Screenon 03-27-2025 PSA,TOT SCREEN 2.51 ng/mL Normal 0.02-4.00 [facility] Comment on above: Result Comment: This test was performed using the [employer] tPSA method. Measured values of a patient??sample can vary depending on the testing procedure used. PSA values determined on patient samples by different testing procedures cannot be used interchangeably. If there is a change in PSA assays while monitoring therapy, sequential testing should be performed to confirm baseline values. Performed By: #### L 501.9910 ####[facility] [id number] [place], [address] Neurology Visit Reporton Neurology Visit Report [facility] [address] [facility], [address] [place] [id number] OFFICE VISIT Date of Service: 02/28/25 MR#: [id number] Acct: [id number] Name: NIKO HUITRON Rep #: [id number] : 1960 Provider: Dr. Hudson francisco MD Age/Sex: 64/M Location: [facility]. Status: Signed HPI HPI Chief Complaint: Details: Interim History: Niko returns for follow-up visit. He has a history of hyperlipidemia, hypertension, diabetes mellitus (diagnosed in 2020), myocardial infarction, benign prostatic hypertrophy, and bipolar disorder. He has been experiencing numbness and pain in the feet since around 2018. The pain is burning in character with an intermittent lancinating component. His symptoms have progressed to the mid calf levels. He has not had numbness or paresthesias in the hands. He denied having weakness. He has chronic low back pain and neck pain since the . He is not having radicular pain in the lower extremities. Physical therapy in 2021 for his neck pain and low back pain was not of benefit. Flurbiprofen and duloxetine were not well-tolerated. Amitriptyline has been of modest benefit for his neuropathic pain in his insomnia. His low back pain limits the range of his mobility. His low back pain pain is worse when he is standing or walking. Gabapentin 100 mg twice per day and pregabalin 75 mg twice per day or not of benefit for his neuropathic pain. He had a left knee replacement in 2020. He had a right knee replacement in October 2024. Acetaminophen for his musculoskeletal pain has been of modest benefit. His lumbar MRI from October 2022 revealed broad-based disc bulges are noted at L4-5 and L5-S1 producing moderate central canal stenosis at L4-5 and mild bilateral foraminal stenosis at L4- 5 and moderate to severe bilateral foraminal stenosis at L5-S1. His cervical MRI from October 2022 revealed degenerative disc/osteophyte disease is noted C5-6 with moderate to severe bilateral foraminal stenosis noted at this level; degenerative disc/osteophyte disease is noted on the left at C6-7 producing moderate left foraminal stenosis at this level. He saw a mechanical commissioning engineer and tried a topical compounded cream which was of some benefit for his neuropathic pain however he no longer uses this and did not recall what the compound consisted of. EMG/nerve conduction studies of the lower extremities in 2021 revealed a sensorimotor (predominantly sensory) polyneuropathy; there was no evidence of radiculopathy. He has a history of excessive alcohol consumption. He quit drinking alcohol in September 2024. He is using medically prescribed marijuana. He underwent a right carotid endarterectomy with bovine patch angioplasty in November 2022 (performed by Dr. Gilbert) for his right carotid stenosis and small mobile mass in the right carotid bulb. He does not have any history of stroke. 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 Storey, at the [facility] in [place]. The patient previously reported that he has had a full body x-ray skeletal survey and a bone marrow biopsy and findings were apparently negative for multiple myeloma (an official report of the studies is presently not available). He has been taking lithium since 2014 for his bipolar disorder. His last lithium level available for review today was in the therapeutic range. He developed a tremor in the hands following initiation of lithium. He did not have a tremor prior to initiation of lithium. The tremor had produced some functional impairment when holding eating utensils however he has been able to compensate for this. Propranolol was not of benefit for his tremor. His ammonia level was previously elevated. Lactulose was initiated and his last ammonia level was normal. He had a reduction of his tremor after initiation of lactulose however he ran out of lactulose around December 2024 and his tremor has worsened. He had tolerated lactulose well. . Cervical and lumbar paraspinal muscle trigger point injections were of benefit for his low back pain. The patient now reports increased low back pain and wishes to receive further lumbar trigger point injections. Baclofen was not effective. Cyclobenzaprine caused dizziness. Tizanidine 4 mg has been of modest benefit for his musculoskeletal pain and has been well-tolerated. Physical Exam: Neuro: The patient is awake and alert and responds appropriately; speech is fluent; a moderate tremor is noted in the hands when arms are extended Back: Bilateral lumbar paraspinal muscle tenderness is noted Neck: No bruits Heart: Regular rate and rhythm Supplemental Info Cervical spine CT (12/18/2017): FINDINGS: Normal craniovertebral junction. Normal anterior atlantoaxial articulation. Normal odontoid process. Normal cervical lordosis.??? Normal vertebral bodies and posterior osse (more content not included)... Normal [facility] PT D/C Summary (1)on 025 PT D/C Summary (1) [facility] Physical Therapy [facility] [address] [place] [address] [address] [place] [address] / REHABILITATION SERVICES DISCHARGE SUMMARY MR#: [id number] Acct: [id number] Name: NIKO HUITRON Rep #: [id number] : 1960 64 From: Husam Fox DPT Referring Dr.: Dr. Silverio Salmeron MD Status: REG RCR Insurance: MEDICARE PART A B [employer]UALTY Discharge Summary D/C summary: It has been my pleasure to treat NIKO HUITRON referred by Dr. Silverio Salmeron MD, with the diagnosis of R piriformis syndrome for a total of 6 visit(s). Discharge Date: 02/03/25 Please see the following information for a summary of their discharge status. Subjective Subjective: Pt. reports feeling better today. He was able to go and do some mulching without much issues. Pt. reports no major issues noted today. Pt. reports being 85% better overall. Pain R gluteal region: Pain Intensity (Out of 10): 0 Overall Improvement % Improvement: 85 Objective Objective/Function: Pt. has good ROM of B hips, still a little tight with HS and with hip ER bilaterally. Pt. has - obers test with BLEs. PT. has symmetrical strength and powerful throughout BLEs. gait and stair negotiation is normal without increase in symptoms. I talked with samuel about continuing to stretch and complete hip and core strengthening exercises 2-3 times per week. Pt. consents. Overall doing well, samuel will be DC from PT at this point in time. Goals Goal 1:: LTG: Pt. to be I with HEP. Goal Progress: Goal Met Goal 2:: STG: Pt. to be able to sit for 30' with out increase in R hip pain. Goal Progress: Goal Met Goal 3:: LTG: Pt. to have symmetrical B hip ER without increase in symptoms. Goal Progress: Goal Met Goal 4:: LTG: pt. to have negative obers test of R hip indicating increased IT band length. Goal Progress: Goal Met Goal 5:: LTG: Pt. to complete all gym related activities without increase in R hip pain. Goal Progress: Progressing Plan Plan: Pt. to be DC from PT at this point in time. D/C Information d/c sentence: If there are questions or concerns regarding this patient's physical therapy, please feel free to call me at [phone]. Thank you for the referral of this patient. Sincerely, Husam Sheriff Sipos, DPT Balance/Gait/Functional tests Balance/Special Test Scores Lower Extremity Functional Score: 75 Improvement % Improvement: 85 02/03/25 0855 CC: Dr. Silverio Salmeron MD CLS Signed Normal [facility] Microalb:Creat Ratio,Random URon 01-20-2025 Creatinine [Mass/Vol] 75.80 mg/dL Normal 39-259 [facility] Comment on above: Performed By: #### L 400.0001, L502.0250 ####[facility] [id number] [place], [address] MALB:CREAT UNABLE TO CALCULATE Normal [facility] Comment on above: Performed By: #### L 400.0001, L502.0250 ####[facility] [address] [place], [address] MICROALBUMIN,UR < 12.0 Normal NO RANGE EST. [facility] Comment on above: Performed By: #### L 400.0001, L502.0250 ####[facility] [address] [place], [address] Urinalysis, Completeon 01-20 RBC 0-5 SEEN Normal 0-5 [facility] Comment on above: Order Comment: CLEAN CATCH Performed By: #### L 400.0001, L502.0250 ####[facility] [address] [place], [address] WBC 0-5 SEEN Normal 0-5 [facility] Comment on above: Order Comment: CLEAN CATCH Performed By: #### L 400.0001, L502.0250 ####[facility] [address] [place], [address] BACTERIA 0 SEEN Normal None Seen [facility] Comment on above: Order Comment: CLEAN CATCH Performed By: #### L 400.0001, L502.0250 ####[facility] [address] [place], [address] EPI,SQUAMOUS 0 SEEN Normal 0-5 [facility] Comment on above: Order Comment: CLEAN CATCH Performed By: #### L 400.0001, L502.0250 ####[facility] [address] [place], [address] Mucus Ql (Urine sed) 0 SEEN Normal [facility] Comment on above: Order Comment: CLEAN CATCH Performed By: #### L 400.0001, L502.0250 ####[facility] [address] [place], [address] Inital Evaluation (1) - PTon 01-16-2025 Inital Evaluation (1) - PT [facility] [address] [place] [address] / REHABILITATION SERVICES INITIAL EVALUATION MR#: [id number] Acct: [id number] Name: NIKO HUITRON Rep #: [id number] : 1960 64 From: Husam Fox DPT Referring Dr.: Dr. Silverio Salmeron MD Status: REG RCR Insurance: MEDICARE PART A B [employer] CASUALTY Patient's Visit Information Visit Information Visit Information: NIKO HUITRON is a 64 year old M referred to Physical Therapy by Dr. Silverio Salmeron MD with a diagnosis of R piriformis syndrome. Date of Evaluation: 01/13/25 Physical Therapist: Husam Fox DPT Visit Plan Frequency: 2x /Week Duration: 4 Weeks Plan: 1) piriformis and IT band stretching R hip. 2) DFM, inhibition of R piriformis 3) core and hip strengthening with gym exercises. Subjective Subjective: Pt. is here today for his initial evaluation with diagnosis of R piriformis syndrome. Pt. reports having increased R gluteal pain/R hip pain with prolonged sitting between 15-20 minutes. Pt. reports with pressure to his R gluteal region he can relieve his pain. He reports minimal to no pain with walking and standing. Pt. is able to exercise with minimal issues. Pt. denies N/T down his legs, but does have some peripheral neuropathy. Pt. did recently have a R TKA. Pt. is sleeping well. Pt. is hopeful to reduce symptoms in order to get back to all recreational and household activities. Pain R gluteal region: Pain Intensity (Out of 10): 0 Pain Intensity Range: 0 and 4 Objective Objective: POSTURE: Pt. has normal in stance. Pt. has normal iliac crest heights. Pt. frank slight slump posture. PALPATION: Pt. has no tenderness at anterior aspect of R greater trochanter, did did have some posterior greater trochanter pain. Pt. has increased pain at piriformis. NEURO: Pt. has normal sensation in BLEs. Pt. is able to rise on heels and toes without issues. ROM: Pt. has normal L hip ROM without issues. R hip: decreased ER at 9d0eg to 45deg (increase in gluteal symptoms), IR normal flexion and extension normal. Pt. has tight IT band and HS as well on L side. Normal lumbar ROM without increase in symptoms. MMT: PT. has good strength throughout BLEs. No marked weakness, except some slight weakness 4+/5 bilateral hip abd, poor core strength. GAIT: pt. has fairly normal gait patterb. Pt. reports no major increase in symptoms with gait. Pt. reports no pain with gait. Pt's major issues is with prolonged sitting. Special Tests R Hip Scour: Negative R Hip MAHENDRA - Intraarticular Pathology: Negative R Hip FADDIR - Labrum: Negative R Hip Impingement Provocation - Labrum: Negative R Hip Trendelenberg - Glut Medius: Negative R Hip Lizette - IT Band: Positive Balance/Special Test Scores Lower Extremity Functional Score: 72 Goals Goal 1:: LTG: Pt. to be I with HEP. Goal Time Frame: 4-6 Weeks Goal 2:: STG: Pt. to be able to sit for 30' with out increase in R hip pain. Goal Time Frame: 2-4 Weeks Goal 3:: LTG: Pt. to have symmetrical B hip ER without increase in symptoms. Goal Time Frame: 4-6 Weeks Goal 4:: LTG: pt. to have negative obers test of R hip indicating increased IT band length. Goal Time Frame: 4-6 Weeks Goal 5:: LTG: Pt. to complete all gym related activities without increase in R hip pain. Rehabilitation Potential Physical Therapy Diagnosis: Pt. has signs and symptoms consist with R piriformis syndrome. Movements of his lumbar spine did not effect his symptoms, but had marked tightness with ER and felt pain with palpation of the same region. Pt. did not have any more distal symptoms. Pt. would benefit from PT to address his R hip tightness and It band tightness in order to increase tolerance to all ADls and activites. Rehabilitation Potential: Excellent Anticipated Interventions Patient/Client Instruction: Educate patient on: Condition, Plan of Care, Risk Factors and Benefits of Fitness Program For the Purpose of:: To foster healthy habits, To improve decision making, To facilitate caregiver knowledge, To improve self management, To prevent re-injury and To improve ability to perform tasks related to life management Therapeutic Exercise to Include: Strength training, Power training, Endurance training, Postural training, Flexibilty training, Passive ROM, Active ROM and Dynamic Lumbar Stabilization For the Purpose of:: To decrease pain, To increase ROM, To improve nutrient delivery to tissue, To increase oxygenation perfusion, To improve muscle performance and motor function, To improve ability to perform ADL's, To improve health of tissue and To decrease soft tissue restriction Manual Therapy Techniques to Include: Trigger point massage and Soft tissue mobilization For the Purpose of:: To decrease pain, To increase ROM, To improve nutrient delivery to tissu (more content not included)... Normal [facility] MR/BMS.BPon 01-10-2025 MR/BMS.BP [facility] [address] [place] [address], [address] [place] [address] OFFICE VISIT Date of Service: 01/10/25 MR#: [id number] Acct: [id number] Name: NIKO HUITRON Rep #: [id number] : 1960 Provider: SHIKHA currie Age/Sex: 64/M Location: [facility].BP Status: Signed Intake Vital Signs 07/20/24 07:15 11/01/24 06:34 01/10/25 08:05 Height 6 ft 1 in 6 ft 1 in 6 ft 1 in BP 118/66 Blood Pressure Location Lt brachial Position Sitting Respiration 16 Pulse 56 L Pulse Source Monitor BP Intake Visit Reasons: 6 M FU Accompanied by: Self Allergies No Known Allergies Allergy (Verified 01/10/25 08:10) Medications ???Medication ???Instructions ???Recorded ???Confirmed ???Type amlodipine 10 mg tablet 10 mg PO DAILY blood pressure 07/2401/10/25 History hydrochlorothiazide 25 mg tablet 25 mg PO DAILY BP 06/18/21 5 History clopidogrel 75 mg tablet (Plavix) 75 mg PO DAILY BLODD THINNER 09/2401/10/25 History Held on 11/01/24. Instructions: May resume the day after the completion of Eliquis prescription accu-check fe plus See Rx Instructions .Route 2 01/10/25 History .COMPLEX DIABETES acetaminophen 500 mg capsule 500 mg PO Q6H PRN Pain 09/10/22 History Held on 11/01/24. Instructions: Duplicate metoprolol succinate 50 mg 100 mg PO DAILY heart 09/10/22 History tablet,extended release 24 hr losartan 100 mg tablet (Cozaar) 100 mg PO DAILY BP 11/26/22 History metformin 500 mg tablet,extended 500 mg PO BID DIABETES 11/26/22 History release 24 hr aspirin 81 mg tablet,delayed 81 mg PO DAILY 09/03/23 01/10/25 H istory release Held on 11/01/24. Instructions: Resume on 11/04/24. baclofen 20 mg tablet 20 mg PO TID 02/17/24 01/10/25 His tory amitriptyline 100 mg tablet 100 mg PO QHS #90 tabs 05/31/24 Rx lactulose 10 gram/15 mL oral 15 ml PO DAILY Tremor #1,350 mL 01/10/25 Rx solution tizanidine 4 mg tablet 4 mg PO TID PRN muscle spasticity; 05/31/24 01/10/25 Rx muscle pain #270 tabs lithium carbonate 300 mg capsule 900 mg (3 x 300 mg) PO 0800 01/10/25 Rx DEPRESSION 90 days #270 caps trazodone 50 mg tablet 100 mg (2 x 50 mg) PO QHS PRN 12/2401/10/25 Rx sleep #180 tabs Have you fallen in the past year?: No PFSH Medical History URI (upper respiratory infection) Carotid stenosis Hematoma of neck Wears glasses Alcohol use Bipolar disorder High cholesterol Seizures Non-smoker History of echocardiogram History of heart attack Hypertension Cardiology follow-up encounter History of stress test Osteoarthritis of left knee Carotid stenosis, bilateral Shortness of breath Bipolar 1 disorder Essential hypertension Pharyngitis Acute bronchitis Chest pain Shoulder pain Arthritis Surgical History History of carotid endarterectomy History of right-sided carotid endarterectomy Hx of transurethral resection of prostate Hx of total knee arthroplasty History of colonoscopy ( 10/2022) History of bursectomy History of arthroscopy of knee History of carpal tunnel release Family History Father Myocardial infarction Hypertension Alcoholism Mother Cancer Diabetes Brother Heart disease Hypertension Alcoholism Cancer prostate Grandfather Myocardial infarction CVA (cerebral vascular accident) Carotid arterial disease Social History Smoking Status: Never smoker alcohol intake: current alcohol intake frequency: 0-2 drinks per day Alcohol type: beer substance use type: does not use HPI History of Present Illness History provided by: patient HPI: Niko Huitron is a 64 year old male patient presenting today for a follow up evaluation. Reports he did get his knee replaced in October and feels like it hasn't been as smooth as when he did his L knee a few years ago. Has been doing well with physical rehabilitation. Reports he has been doing well. Denies any feelings of depression. Denies SI/HI. Denies any symptoms of reji since last appointment. Does report tremor has been consistent and has not gotten better or worse. Denies any feelings of anxiety. Denies panic attacks since last appointment. Sleep has been good. Has lost about 30 pounds since last appointment. Reports appetite has been reduced since having his knee replaced in October. Is hopeful to losea bout 10 more pounds. Previous similar episode: Yes Age of first onset of symptoms: 51-60 years Review of Systems Constitutional Denies: fever(s), chills or fatigue (more content not included)... Normal [facility] CBC W/Diff, Automatedon 12-24 Absolute Lymph 3.14 X10 3/uL Normal 0.83-4.51 [facility] Comment on above: Order Comment: Order Date: 01/06/25 Order Info: 0184-1 - CBCD Performed By: #### L 502.0250, L100.0100, L501.4885, L500.4050, L500.4100 #### [facility] [address] [place], [place], [id number] Absolute Neut 8.0 X10 3/uL High 2.0-7.7 [facility] Comment on above: Order Comment: Order Date: 01/06/25 Order Info: 0184-1 - CBCD Performed By: #### L 502.0250, L100.0100, L501.9985, L500.4050, L500.4100 #### [facility] [address] [place], [address] Basophils/100 WBC (Bld) 1.3 % High 0-1 [facility] Comment on above: Order Comment: Order Date: 01/06/25 Order Info: 0184-1 - CBCD Performed By: #### L 502.0250, L100.0100, L501.9985, L500.4050, L500.4100 #### [facility] [address] [place], [address] Eosinophils/100 WBC (Bld) 2.7 % Normal 0-5 [facility] Comment on above: Order Comment: Order Date: 01/06/25 Order Info: 018- - CBCD Performed By: #### L 502.0250, L100.0100, L501.9985, L500.4050, L500.4100 #### [facility] [address] [place], [address] Erythrocyte distribution width (RBC) [Ratio] 13.2 % Normal 11.6-14.6 [facility] Comment on above: Order Comment: Order Date: 01/06/25 Order Info: 018- - CBCD Performed By: #### L 502.0250, L100.0100, L501.9985, L500.4050, L500.4100 #### [facility] [address] [place], [address] Hematocrit (Bld) [Volume fraction] 38.6 % Low 40-54 [facility] Comment on above: Order Comment: Order Date: 01/06/25 Order Info: 0184-1 - CBCD Performed By: #### L 502.0250, L100.0100, L501.9985, L500.4050, L500.4100 #### [facility] [address] [place], [address] Hemoglobin (Bld) [Mass/Vol] 12.7 g/dL Low 13.0-16.5 [facility] Comment on above: Order Comment: Order Date: 01/06/25 Order Info: 0184-1 - CBCD Performed By: #### L 502.0250, L100.0100, L501.9985, L500.4050, L500.4100 #### [facility] [address] [place], [address] IG% 0.500 Normal 0.0-0.9 [facility] Comment on above: Order Comment: Order Date: 01/06/25 Order Info: [id number] - CBCD Result Comment: IG% - Immature Granulocytes (promyelocytes, myelocytes and metamyelocytes) > 1% indicates that a LEFT SHIFT is Present. Performed By: #### L 502.0250, L100.0100, L501.9985, L500.4050, L500.4100 #### [facility] [address] [place], [address] Lymphocytes/100 WBC (Bld) 24.5 % Normal 19-41 [facility] Comment on above: Order Comment: Order Date: 01/06/25 Order Info: 0184- - CBCD Performed By: #### L 502.0250, L100.0100, L501.9985, L500.4050, L500.4100 #### [facility] [address] [place], [address] MCH (RBC) [Entitic mass] 28.1 pg Normal 27.0-32.0 [facility] Comment on above: Order Comment: Order Date: 01/06/25 Order Info: 0184- - CBCD Performed By: #### L 502.0250, L100.0100, L501.9985, L500.4050, L500.4100 #### [facility] [address] [place], [address] MCHC (RBC) [Mass/Vol] 32.9 g/dL Normal 32-36 [facility] Comment on above: Order Comment: Order Date: 01/06/25 Order Info: 0184-1 - CBCD Performed By: #### L 502.0250, L100.0100, L501.9985, L500.4050, L500.4100 #### [facility] [address] [place], [address] MCV (RBC) [Entitic vol] 85.4 fL Normal 80-94 [facility] Comment on above: Order Comment: Order Date: 01/06/25 Order Info: 0184-1 - CBCD Performed By: #### L 502.0250, L100.0100, L501.9985, L500.4050, L500.4100 #### [facility] [address] [place], [address] Monocytes/100 WBC (Bld) 8.3 % Normal 0-10 [facility] Comment on above: Order Comment: Order Date: 01/06/25 Order Info: 0184-1 - CBCD Performed By: #### L 502.0250, L100.0100, L501.9985, L500.4050, L500.4100 #### [facility] [address] [place], [address] Neutrophils/100 WBC (Bld) 62.7 % Normal 47-70 [facility] Comment on above: Order Comment: Order Date: 01/06/25 Order Info: 0184-1 - CBCD Performed By: #### L 502.0250, L100.0100, L501.9985, L500.4050, L500.4100 #### [facility] [address] [place], [address] Nucleated RBC (Bld) [#/Vol] 0 10*3/uL Normal 0-5 [facility] Comment on above: Order Comment: Order Date: 01/06/25 Order Info: 0184-1 - CBCD Performed By: #### L 502.0250, L100.0100, L501.9985, L500.4050, L500.4100 #### [facility] [address] [place], [address] Platelet mean volume (Bld) [Entitic vol] 9.8 fL Normal 6.2-12.0 [facility] Comment on above: Order Comment: Order Date: 01/06/25 Order Info: 0184-1 - CBCD Performed By: #### L 502.0250, L100.0100, L501.9985, L500.4050, L500.4100 #### [facility] [address] [place], [address] Platelets (Bld) [#/Vol] 342 10*3/uL Normal 150-450 [facility] Comment on above: Order Comment: Order Date: 01/06/25 Order Info: 0184-1 - CBCD Performed By: #### L 502.0250, L100.0100, L501.9985, L500.4050, L500.4100 #### [facility] [address] [facility] [place], [address] RBC (Bld) [#/Vol] 4.52 10*6/uL Low 4.6-6.2 [facility] Comment on above: Order Comment: Order Date: 01/06/25 Order Info: 0184-1 - CBCD Performed By: #### L 502.0250, L100.0100, L501.9985, L500.4050, L500.4100 #### [facility] [address] [place], [address] RDW SD 41.3 fl Normal 35.1-43.9 [facility] Comment on above: Order Comment: Order Date: 01/06/25 Order Info: 0184-1 - CBCD Performed By: #### L 502.0250, L100.0100, L501.9985, L500.4050, L500.4100 #### [facility] [address] [place], [address] WBC (Bld) [#/Vol] 12.8 10*3/uL High 4.4-11.0 [facility] Comment on above: Order Comment: Order Date: 01/06/25 Order Info: 0184-1 - CBCD Performed By: #### L 502.0250, L100.0100, L501.9985, L500.4050, L500.4100 #### [facility] [address] [place], [address] Comprehensive Metabolic Prof ilon 01-06-2025 Albumin [Mass/Vol] 3.3 g/dL Normal 3.2-5.0 [facility] Comment on above: Order Comment: Order Date: 01/06/25 Order Info: 0786-1 - CMP Order Info: [id number] - LIPID Performed By: #### L 502.0250, L100.0100, L501.9985, L500.4050, L500.4100 #### [facility] [address] [place], [address] Albumin/Globulin [Mass ratio] 1.0 {ratio} Normal 0.9-2.4 [facility] Comment on above: Order Comment: Order Date: 01/06/25 Order Info: 0786-1 - CMP Order Info: [id number] - LIPID Performed By: #### L 502.0250, L100.0100, L501.9985, L500.4050, L500.4100 #### [facility] [address] [place], [address] ALK P 57 U/L Normal 45-117 [facility] Comment on above: Order Comment: Order Date: 01/06/25 Order Info: 0786-1 - CMP Order Info: [id number] - LIPID Performed By: #### L 502.0250, L100.0100, L501.9985, L500.4050, L500.4100 #### [facility] [address] [place], [address] ALT [Catalytic activity/Vol] 30 U/L Normal 16-61 [facility] Comment on above: Order Comment: Order Date: 01/06/25 Order Info: 0786-1 - CMP Order Info: [id number] - LIPID Performed By: #### L 502.0250, L100.0100, L501.9985, L500.4050, L500.4100 #### [facility] [address] [place], [address] AST [Catalytic activity/Vol] 20 U/L Normal 15-37 [facility] Comment on above: Order Comment: Order Date: 01/06/25 Order Info: 0786-1 - CMP Order Info: [id number] - LIPID Performed By: #### L 502.0250, L100.0100, L501.9985, L500.4050, L500.4100 #### [facility] [address] [place], [address] Bilirubin [Mass/Vol] 0.20 mg/dL Normal 0.20-1.00 [facility] Comment on above: Order Comment: Order Date: 01/06/25 Order Info: 0786-1 - CMP Order Info: [id number] - LIPID Result Comment: For patients on eltrombopag therapy, use of Dimension [place] TBIL is not recommended. Performed By: #### L 502.0250, L100.0100, L501.9985, L500.4050, L500.4100 #### [facility] [address] [place], [address] BUN/CRE 14.3 RATIO Normal 10-20 [facility] Comment on above: Order Comment: Order Date: 01/06/25 Order Info: 0786-1 - CMP Order Info: [id number] - LIPID Performed By: #### L 502.0250, L100.0100, L501.9985, L500.4050, L500.4100 #### [facility] [address] [place], [address] CA,Total 8.6 mg/dL Normal 8.5-10.1 [facility] Comment on above: Order Comment: Order Date: 01/06/25 Order Info: 0786-1 - CMP Order Info: [id number] - LIPID Performed By: #### L 502.0250, L100.0100, L501.9985, L500.4050, L500.4100 #### [facility] [address] [place], [address] Chloride [Moles/Vol] 106 mmol/L Normal 98-107 [facility] Comment on above: Order Comment: Order Date: 01/06/25 Order Info: 0786-1 - CMP Order Info: [id number] - LIPID Performed By: #### L 502.0250, L100.0100, L501.9985, L500.4050, L500.4100 #### [facility] [address] [place], [address] CO2 [Moles/Vol] 25.0 mmol/L Normal 21.0-32.0 [facility] Comment on above: Order Comment: Order Date: 01/06/25 Order Info: 0786-1 - CMP Order Info: [id number] - LIPID Performed By: #### L 502.0250, L100.0100, L501.9985, L500.4050, L500.4100 #### [facility] [address] [place], [address] Creatinine [Mass/Vol] 0.91 mg/dL Normal 0.70-1.30 [facility] Comment on above: Order Comment: Order Date: 01/06/25 Order Info: 0786-1 - CMP Order Info: [id number] - LIPID Result Comment: The validity of the calculated GFR GFRAA in patients over 70 years has not been determined. Clinical correlation is essential. Performed By: #### L 502.0250, L100.0100, L501.9985, L500.4050, L500.4100 #### [facility] [address] [place], [address] EST GFR - AA 107 mL/min Normal >60 [facility] Comment on above: Order Comment: Order Date: 01/06/25 Order Info: 0786-1 - CMP Order Info: [id number] - LIPID Result Comment: Afri can Sudanese GFR Calc Performed By: #### L 502.0250, L100.0100, L501.9985, L500.4050, L500.4100 #### [facility] [address] [place], [address] GAP 8 Normal 5-15 [facility] Comment on above: Order Comment: Order Date: 01/06/25 Order Info: [id number] - CMP Order Info: [id number] - LIPID Performed By: #### L 502.0250, L100.0100, L501.9985, L500.4050, L500.4100 #### [facility] [address] [place], [address] GFR/1.73 sq M.predicted among non-blacks MDRD (S/P/Bld) [Vol rate/Area] 89 mL/min/{1.73_m2} Normal >60 [facility] Comment on above: Order Comment: Order Date: 01/06/25 Order Info: 0786-1 - CMP Order Info: [id number] - LIPID Result Comment: Non- GFR Calc Performed By: #### L 502.0250, L100.0100, L501.9985, L500.4050, L500.4100 #### [facility] [address] [place], [address] Globulin (S) [Mass/Vol] 3.4 g/dL Normal 2.2-4.2 [facility] Comment on above: Order Comment: Order Date: 01/06/25 Order Info: [id number] - [facility] Order Info: [id number] - LIPID Performed By: #### L 502.0250, L100.0100, L501.9985, L500.4050, L500.4100 #### [facility] [address] [place], [address] Glucose [Mass/Vol] 155 mg/dL High 74-106 [facility] Comment on above: Order Comment: Order Date: 01/06/25 Order Info: [id number] - CMP Order Info: [id number] - LIPID Result Comment: Fast ing Glucose result greater than or equal to 126 mg/dL suggests DIABETES MELLITUS per A.D.A. criteria. Performed By: #### L 502.0250, L100.0100, L501.9985, L500.4050, L500.4100 #### [facility] [address] [place], [address] Potassium [Moles/Vol] 3.9 mmol/L Normal 3.5-5.1 [facility] Comment on above: Order Comment: Order Date: 01/06/25 Order Info: 0786-1 - [facility] Order Info: [id number] - LIPID Performed By: #### L 502.0250, L100.0100, L501.9985, L500.4050, L500.4100 #### [facility] [address] [place], [address] Sodium [Moles/Vol] 139 mmol/L Normal 136-145 [facility] Comment on above: Order Comment: Order Date: 01/06/25 Order Info: 0786-1 - [facility] Order Info: [id number] - LIPID Performed By: #### L 502.0250, L100.0100, L501.9985, L500.4050, L500.4100 #### [facility] [address] [place], [address] T PROT 6.7 g/dL Normal 6.4-8.2 [facility] Comment on above: Order Comment: Order Date: 01/06/25 Order Info: [id number] - CMP Order Info: [id number] - LIPID Performed By: #### L 502.0250, L100.0100, L501.9985, L500.4050, L500.4100 #### [facility] [address] [place], [address] Urea nitrogen [Mass/Vol] 13 mg/dL Normal 7-18 [facility] Comment on above: Order Comment: Order Date: 01/06/25 Order Info: [id number] - CMP Order Info: [id number] - LIPID Performed By: #### L 502.0250, L100.0100, L501.9985, L500.4050, L500.4100 #### [facility] [address] [place], [address] Hemoglobin A1con 01-06-2025 HbA1c (Bld) [Mass fraction] 6.6 % High 3.8-5.6 [facility] Comment on above: Order Comment: Order Date: 01/06/25 Order Info: [id number] - A1C Result Comment: Norm al < 5.7 % Prediabetic 5.7 - 6.4 % Diabetic >or= 6.5 % Please note range changes. Performed By: #### L 502.0250, L100.0100, L501.9985, L500.4050, L500.4100 #### [facility] [address] [place], [address] Lipid Profileon 01-06-2025 Cholesterol [Mass/Vol] 89 mg/dL Normal 200 [facility] Comment on above: Order Comment: Order Date: 01/06/25 Order Info: 0786-1 - CMP Order Info: [id number] - LIPID Result Comment: <200 mg/dL Desirable 200-240 mg/dL Borderline >240 mg/dL High Risk Performed By: #### L 502.0250, L100.0100, L501.9985, L500.4050, L500.4100 #### [facility] [address] [place], [address] Cholesterol in HDL [Mass/Vol] 38 mg/dL Low [facility] Comment on above: Order Comment: Order Date: 01/06/25 Order Info: 0786-1 - CMP Order Info: [id number] - LIPID Result Comment: The drugs N-Acetylcysteine and Metamizole may falsely depress this assay. Reference Range HDL <40 mg/dL Low HDL Cholesterol HDL >or= 60 mg/dL High HDL Cholesterol Performed By: #### L 502.0250, L100.0100, L501.9985, L500.4050, L500.4100 #### [facility] [address] [place], [address] Cholesterol in LDL [Mass/Vol] -10 mg/dL Low 0-130 [facility] Comment on above: Order Comment: Order Date: 01/06/25 Order Info: [id number] - CMP Order Info: [id number] - LIPID Performed By: #### L 502.0250, L100.0100, L501.9985, L500.4050, L500.4100 #### [facility] [address] [place], [address] Cholesterol in VLDL [Mass/Vol] 61 mg/dL High 5-40 [facility] Comment on above: Order Comment: Order Date: 01/06/25 Order Info: 0786-1 - CMP Order Info: [id number] - LIPID Performed By: #### L 502.0250, L100.0100, L501.9985, L500.4050, L500.4100 #### [facility] [address] [place], [address] Triglyceride [Mass/Vol] 307 mg/dL High [facility] Comment on above: Order Comment: Order Date: 01/06/25 Order Info: 0786-1 - CMP Order Info: [id number] - LIPID Result Comment: The drugs N-Acetylcysteine and Metamizole may falsely depress this assay. Serum Triglycerides Reference Interval Normal <150 mg/dL Borderline high 150 - 199 mg/dL High 200 - 499 mg/dL Very High > or = 500 mg/dL Performed By: #### L 502.0250, L100.0100, L501.9985, L500.4050, L500.4100 #### [facility] [address] [place], [address] Microalb:Creat Ratio,Random URon 01-06-2025 MALB:CRE Normal <30 mg/g CRE [facility] Comment on above: Order Comment: Order Date: 01/06/25 Order Info: [id number] - [facility]IACRE Order Info: [id number] - MIALB Result Comment: UTO Performed By: #### L 502.0250, L100.0100, L501.9985, L500.4050, L500.4100 #### [facility] [address] [place], [address] MICROALBUMIN,UR Normal NO RANGE EST. [facility] Comment on above: Order Comment: Order Date: 01/06/25 Order Info: [id number] - [facility] Order Info: [id number] - MIALB Result Comment: UTO Performed By: #### L 502.0250, L100.0100, L501.9985, L500.4050, L500.4100 #### [facility] [address] [place], [address] UR CREAT Normal NO RANGE EST. [facility] Comment on above: Order Comment: Order Date: 01/06/25 Order Info: [id number] - [facility] Order Info: [id number] - MIALB Result Comment: UTO Performed By: #### L 502.0250, L100.0100, L501.9985, L500.4050, L500.4100 #### [facility] [address] [place], [address] MR/BMSJevon 12-22-2024 MR/BMS.BVS [facility] [address] [place] [address] OFFICE VISIT Date of Service: 12/22/24 MR#: [id number] Acct: [id number] Name: NIKO HUITRON Rep #: [id number] : 1960 Provider: LOWELL Ramirez Age/Sex: 64/M Location: [facility] Status: Signed Intake Vital Signs 11/01/24 06:34 12/22/24 08:25 Height 6 ft 1 in Weight: 253 lb BP 99/53 L Blood Pressure Location Lt brachial Position Sitting Respiration 16 Pulse 53 L Pulse Source Monitor Temp 97.7 F L Temp Source Temporal Pulse Oximetry (%) 97 Oxygen Delivery Method room air Intake Visit Reasons: Establish care Chief Complaint: carotid Is patient in pain?: No Allergies No Known Allergies Allergy (Verified 12/22/24 08:27) Medications ???Medication ???Instructions ???Recorded ???Confirmed ???Type amlodipine 10 mg tablet 10 mg PO DAILY blood pressure 07/2412/22/24 History hydrochlorothiazide 25 mg tablet 25 mg PO DAILY BP 06/18/21 5 History clopidogrel 75 mg tablet (Plavix) 75 mg PO DAILY BLODD THINNER 09/2412/22/24 History Held on 11/01/24. Instructions: May resume the day after the completion of Eliquis prescription accu-check fe plus See Rx Instructions .Route 2 12/22/24 History .COMPLEX DIABETES acetaminophen 500 mg capsule 500 mg PO Q6H PRN Pain 09/10/22 History Held on 11/01/24. Instructions: Duplicate metoprolol succinate 50 mg 100 mg PO DAILY heart 09/10/22 History tablet,extended release 24 hr losartan 100 mg tablet (Cozaar) 100 mg PO DAILY BP 11/26/22 History metformin 500 mg tablet,extended 500 mg PO BID DIABETES 11/26/22 History release 24 hr atorvastatin 40 mg tablet 40 mg PO QHS 07/14/23 12/22/24 His tory aspirin 81 mg tablet,delayed 81 mg PO DAILY 09/03/23 12/22/24 H istory release Held on 11/01/24. Instructions: Resume on 11/04/24. baclofen 20 mg tablet 20 mg PO TID 02/17/24 12/22/24 His tory hydralazine 50 mg tablet 100 mg PO TID 02/17/24 12/22/24 Hi story lithium carbonate 300 mg capsule 900 mg (3 x 300 mg) PO 0800 12/22/24 Rx DEPRESSION 90 days #270 caps amitriptyline 100 mg tablet 100 mg PO QHS #90 tabs 05/31/24 Rx lactulose 10 gram/15 mL oral 15 ml PO DAILY Tremor #1,350 mL 12/22/24 Rx solution tizanidine 4 mg tablet 4 mg PO TID PRN muscle spasticity; 05/31/24 12/22/24 Rx muscle pain #270 tabs trazodone 50 mg tablet 100 mg (2 x 50 mg) PO QHS PRN 06/2412/22/24 Rx sleep #180 tabs Have you fallen in the past year?: No PFSH Medical History URI (upper respiratory infection) Carotid stenosis Hematoma of neck Wears glasses Alcohol use Bipolar disorder High cholesterol Seizures Non-smoker History of echocardiogram History of heart attack Hypertension Cardiology follow-up encounter History of stress test Osteoarthritis of left knee Carotid stenosis, bilateral Shortness of breath Bipolar 1 disorder Essential hypertension Pharyngitis Acute bronchitis Chest pain Shoulder pain Arthritis Surgical History History of carotid endarterectomy History of right-sided carotid endarterectomy Hx of transurethral resection of prostate Hx of total knee arthroplasty History of colonoscopy ( 10/2022) History of bursectomy History of arthroscopy of knee History of carpal tunnel release Family History Father Myocardial infarction Hypertension Alcoholism Mother Cancer Diabetes Brother Heart disease Hypertension Alcoholism Cancer prostate Grandfather Myocardial infarction CVA (cerebral vascular accident) Carotid arterial disease Social History Smoking Status: Never smoker alcohol intake: current alcohol intake frequency: 0-2 drinks per day Alcohol type: beer substance use type: does not use HPI HPI HPI: NIKO HUITRON, is a 64 M who presents to the office today to establish ongoing care for carotid artery disease previously followed by Dr. Gilbert. He is s/p R CEA 11/[address] Gilbert. Most recent carotid duplex 10/2024 showed <50% ICA stenosis bilaterally. He shares that at the time of his CEA it was not that his stenosis was severe, but rather that he had mobile plaque in the R ICA. No history of CVA/TIA. He takes ASA 81mg daily, Plavix 75 mg daily (for coronary artery disease), and atorvastatin 40mg daily. He denies claudication, nonhealing wounds, history of VTE. No specific complaints today. ROS General General: Yes weight change; (more content not included)... Normal [facility] Knee 3 Viewson 12-12-2024 Knee 3 Views [facility] Radiology [address] [place] [address] Knee 3 Views MR#: [id number] Acct: [id number] Name: NIKO HUITRON Rep #: [id number] : 1960 M 64 From: Sadaf steven MD PCP: Dr. Silverio Salmeron MD Status: DEP AMB Study: Knee 3 Views Date of Exam: 12/12/24 Exam# [id number] Ordering Dr: [place] [id number] HISTORY s/p right TKA. TECHNIQUE: XR Knee 3 Views. COMPARISON: 11/01/2024. FINDINGS: BONES : No acute fracture identified. No abnormal periprosthetic lucency seen. JOINTS: Right knee arthroplasty in place without dislocation. Joint effusion. SOFT TISSUES: Skin mell removed. Anterior soft tissue swelling. RAD/Knee 3 Views IMPRESSION: Right knee arthroplasty without acute fracture or dislocation identified. Anterior soft tissue swelling. Mild joint effusion. Electronically Signed: Sadaf Glasgow MD at 8:47 EST , CC: Dr. Silverio Salmeron MD; Dr. Roly Chi DO [employer]S Representative: Signed Normal [facility] Orthopedic Visit Reporton Orthopedic Visit Report [facility] [address] [place] [address] OFFICE VISIT Date of Service: 12/12/24 MR#: [id number] Acct: [id number] Name: NIKO HUITRON Rep #: [id number] : 1960 Provider: Dr. Roly ochoa DO Age/Sex: 64/M Location: [facility] Status: Signed Intake Vital Signs 07/20/24 07:15 11/01/24 06:34 Height 6 ft 1 in 6 ft 1 in Intake Visit Reasons: right knee Allergies No Known Allergies Allergy (Verified 12/12/24 08:05) Medications ???Medication ???Instructions ???Recorded ???Confirmed ???Type amlodipine 10 mg tablet 10 mg PO DAILY blood pressure 08/07/20 12/12/24 History hydrochlorothiazide 25 mg tablet 25 mg PO DAILY BP 06/18/21 12/12/24 History clopidogrel 75 mg tablet (Plavix) 75 mg PO DAILY BLODD THINNER 10/16/21 12/12/24 History accu-check fe plus See Rx Instructions .Route 09/10/22 12/12/24 History .COMPLEX DIABETES acetaminophen 500 mg capsule 500 mg PO Q6H PRN Pain 09/10/22 12/12/24 History metoprolol succinate 50 mg 100 mg PO DAILY heart 09/10/22 12/12/24 History tablet,extended release 24 hr losartan 100 mg tablet (Cozaar) 100 mg PO DAILY BP 11/26/22 12/12/24 History metformin 500 mg tablet,extended 500 mg PO BID DIABETES 11/26/22 12/12/24 History release 24 hr atorvastatin 40 mg tablet 40 mg PO QHS 07/14/23 12/12/24 History aspirin 81 mg tablet,delayed 81 mg PO DAILY 09/03/23 12/12/24 History release baclofen 20 mg tablet 20 mg PO TID 02/17/24 12/12/24 History hydralazine 50 mg tablet 100 mg PO TID 02/17/24 12/12/24 History benzonatate 200 mg capsule 200 mg PO TID PRN cough #20 caps 04/11/24 12/12/24 Rx lithium carbonate 300 mg capsule 900 mg (3 x 300 mg) PO 0800 04/19/24 12/12/24 Rx DEPRESSION 90 days #270 caps amitriptyline 100 mg tablet 100 mg PO QHS #90 tabs 05/31/24 12/12/24 Rx lactulose 10 gram/15 mL oral 15 ml PO DAILY Tremor #1,350 mL 05/31/24 12/12/24 Rx solution tizanidine 4 mg tablet 4 mg PO TID PRN muscle spasticity; 05/31/24 12/12/24 Rx muscle pain #270 tabs trazodone 50 mg tablet 100 mg (2 x 50 mg) PO QHS PRN 07/20/24 12/12/24 Rx sleep #180 tabs acetaminophen 500 mg tablet 1,000 mg (2 x 500 mg) PO Q6H #90 11/01/24 12/12/24 Rx tabs cephalexin 500 mg capsule 1,000 mg (2 x 500 mg) PO Q8H #6 11/01/24 12/12/24 Rx caps oxycodone 5 mg tablet 5 - 10 mg (1 - 2 x 5 mg) PO Q4H 11/01/24 12/12/24 Rx PRN pain 7 days #60 tabs Have you fallen in the past year?: No PFSH Medical History URI (upper respiratory infection) Carotid stenosis Hematoma of neck Wears glasses Alcohol use Bipolar disorder High cholesterol Seizures Non-smoker History of echocardiogram History of heart attack Hypertension Cardiology follow-up encounter History of stress test Osteoarthritis of left knee Carotid stenosis, bilateral Shortness of breath Bipolar 1 disorder Essential hypertension Pharyngitis Acute bronchitis Chest pain Shoulder pain Arthritis Surgical History History of carotid endarterectomy History of right-sided carotid endarterectomy Hx of transurethral resection of prostate Hx of total knee arthroplasty History of colonoscopy ( 10/2022) History of bursectomy History of arthroscopy of knee History of carpal tunnel release Family History Father Myocardial infarction Hypertension Alcoholism Mother Cancer Diabetes Brother Heart disease Hypertension Alcoholism Cancer prostate Grandfather Myocardial infarction CVA (cerebral vascular accident) Carotid arterial disease Social History Smoking Status: Never smoker alcohol intake: current alcohol intake frequency: 0-2 drinks per day Alcohol type: beer substance use type: does not use HPI right knee Details: This documentation accurately reflects the service provided and the decisions made by me, Dr. Roly Chi, 12/12/24 0752. Part of today???s visit was documented by Kristal ARRIETA, acting as scribe. NIKO HUITRON is a 64 year old M here today for 6 weeks postop 11/01/2024 right total knee arthroplasty. Patient states that he is doing well. He is ambulating with a cane now but does walk without it depending where he is. He does have pain here and there. He states that he is happy with the way his ROM is. Ortho Exam General General: Yes no acute distress Neurologic: Yes alert and Yes oriented x3 Psychologic: Yes reasonable and appropriate Right Knee Date of Surgery: 11/01/24 Knee ROM: Yes ROM-Extension -20 to 0 (-5) and Yes ROM-Flexion 0-140 (100) KNEE: no effusion Incision well-healed no sig (more content not included)... Normal [facility] Re-Evaluation - PT (1)on Re-Evaluation - PT (1) [facility] Physical Therapy [facility] [address] [place] [address]. [address] [place] [address] / REEVALUATION / MEDICARE RECERTIFICATION PHYSICAL THERAPY MR#: [id number] Acct: [id number] Name: NIKO HUITRON Rep #: [id number] : 1960 64 From: Husam Fox DPT Referring Dr.: Dr. Roly Chi DO Status:REG RCR Insurance: MEDICARE PART A B [employer] Re-Evaluation Intro: Dr. Roly Chi, DO, It has been my pleasure to treat NIKO HUITRON over the last 12 visits for R TKA, DOS: 11/01/24. Please see the progress note below for an update on the physical therapy plan of care! Subjective Subjective: Pt. being seen for his re check this date. Pt. reports that he has been stretching x2 daily. I urged him that this is not enough and needs to be stretching more often at home. Pt. reports understanding and agrees to do more at home. Objective Objective/Function: ROM: 0-5- 101deg with over pressure. MMT: RLE: knee: ext 8#, flexion 4#; LLE: knee: ext 29#, flexion 21# GAIT: Pt. ambulates with FWW for longer distances STAIRS: Pt. is able to complete with 2 HR with reciprocal pattern. He has increased pain with loading RLE during descending with early heel off as well. I talked a lot with samuel about being consistent with stretching, he again reports stretching 2 per day, I urged him prior to the holidays he has be doing this x5 per day. He reports he plans to start now. I instructed him on consistency with stretching to achieve 120deg of flexion. I warned him that if we do not improve his motion physician may want to manipulate it to get better mobility. He is okay to start walking without AD at home, but in worse conditions outside I want him to use an AD. Pt. reports understanding. He is progressing towards his goals and the current goals still apply. I believe if we have improve his ROM, other issues will start to improve. Plan Plan Plan: I extended his POC x3 a week for 2 weeks, really focus on improving his ROM. We can do some functional strengthening, gait training, but really needs to achieve better motion. Balance/Gait/Functional tests Balance/Special Test Scores Lower Extremity Functional Score: 42 TUG Test Time Seconds: 12.04 Tug Test: <20 sec.=mostly independent 30 Second Chair Rise Test Seconds: 7 WOMAC Total Score: 73 WOMAC Percentage: 23.9600 Goals Goals Goal 1:: LTG: Pt. to be I with HEP. Goal Time Frame: 4-6 Weeks Goal Progress: Progressing Goal 2:: STG: pt. to have increased R knee ROM to 0-0-120deg. Goal Time Frame: 2-4 Weeks Goal Progress: Progressing Goal 3:: LTG: Pt. to ambulate with normal gait pattern with out use of AD. Goal Time Frame: 6-8 Weeks Goal Progress: Progressing Goal 4:: LTG: Pt. to complete TUG without AD with time less than 10seconds. Goal Time Frame: 6-8 Weeks Goal Progress: Progressing Goal 5:: LTG: Pt. to have increased RLE strength symmetrical to L side. Goal Time Frame: 6-8 Weeks Goal Progress: Progressing Goal 6:: LTG: Pt. to have symmetrical girth between bilateral knees indicating decreased edema. Goal Time Frame: 4-6 Weeks Goal Progress: Progressing Anticipated Interventions Anticipated Interventions Patient/Client Instruction: Educate patient on: Condition, Plan of Care, Risk Factors and Benefits of Fitness Program For the Purpose of:: To improve decision making, To facilitate caregiver knowledge, To improve self management, To prevent re-injury, To improve ability to perform tasks related to life management and To improve tolerance to ADL's Therapeutic Exercise to Include: Strength training, Power training, Endurance training, Balance training, Postural training, Flexibilty training, Gait and locomotor training, Passive ROM and Active ROM For the Purpose of:: To decrease pain, To decrease swelling/inflammation, To increase ROM, To improve nutrient delivery to tissue, To increase oxygenation perfusion, To improve muscle performance and motor function, To improve ability to perform ADL's, To improve health of tissue, To decrease soft tissue restriction and To increase flexibility/ROM Manual Therapy Techniques to Include: Scar massage, Mobilization, Passive ROM and Soft tissue mobilization For the Purpose of:: To decrease pain, To increase ROM, To improve nutrient delivery to tissue and To increase oxygenation perfusion Cryotherapy (ice pack, ice massage): Yes Vasopneumatic device: Yes For the Purpose of:: To decrease pain, To increase ROM, To improve nutrient delivery to tissue, To increase oxygenation perfusion, To improve muscle performance and motor function and To improve ability to perform ADL's Re-Evaluation Ending Re-evaluation ending: Please do not hesitate to contact me at [phone] by phone or if you have questions or concerns regarding this n (more content not included)... [facility] NIKO HUITRON ([id number]) 1960 M Date Time Provider Department 11/23/24 CARLOS STOREY During your visit today, we recorded the following information about you: Carlos Storey DO 11/23/2024 1:15 PM Signed Can let him know his follow-up lab work done at the day of the office visit showed stable findings. I would like to do a 6-month follow-up rather than a year as scheduled. DO Britt Buckner Melissa 11/24/2024 8:18 AM Signed 1st attempt. Message left for patient to receive below message. Reschedule October lab and office visit to April. Danielle Howell 11/25/2024 8:59 AM Signed Patient is scheduled Allergies As of Date: 11/23/2024 (No Known Allergies) Date Reviewed: 11/07/2024 Reviewed by: Carlos Storey DO - Fully Assessed Reason for Visit: Follow Up [171] Prescriptions as of 11/25/2024 - amitriptyline (ELAVIL) 100 mg tablet Take 100 mg by mouth daily at bedtime. - hydrALAZINE (APRESOLINE) 50 mg tablet Take 100 mg by mouth three times a day. - lactulose (DUPHALAC, CONSTULOSE) 10 g/15 mL soln Take 20 g by mouth once daily. - meloxicam (MOBIC) 15 mg tablet Take 15 mg by mouth once daily. - metFORMIN (GLUCOPHAGE) 500 mg tablet Take 500 mg by mouth two times a day with meals. - baclofen 20 mg tablet Take 20 mg by mouth three times a day. - losartan (COZAAR) 100 mg tablet Take 100 mg by mouth once daily. - cyclobenzaprine (FLEXERIL) 5 mg tablet Take 5 mg by mouth every 8 hours. - traZODone (DESYREL) 100 mg tablet Take two tablets by mouth at bedtime. - atorvastatin (LIPITOR) 40 mg tablet Take 40 mg by mouth once daily. - clopidogrel (PLAVIX) 75 mg tablet Take 75 mg by mouth once daily. - metoprolol succinate ER (TOPROL XL) 100 mg Take 100 mg by mouth once daily. - amLODIPine (NORVASC) 10 mg tablet Take 10 mg by mouth once daily. - hydroCHLOROthiazide (HYDRODIURIL, ESIDRIX) 25 mg tablet Take 25 mg by mouth once daily. - aspirin, enteric coated (ASPIRIN, ENTERIC COATED) 81 mg EC tablet Take 81 mg by mouth once daily. - multivitamin tablet Take 1 tablet by mouth once daily. - acetaminophen (TYLENOL) 500 mg tablet Take 1,000 mg by mouth every 6 hours as needed. - lithium carbonate 300 mg tablet Take 300 mg by mouth two times a day. 1 tablet in am 2 tablets in pm Problem List As Of Date 11/23/2024 Noted Resolved Essential hypertension [I10] 07/16/2017 Encounter Status:Closed by JESSICA WESTON on 11/25/24 [facility] Orthopedic Visit Reporton Orthopedic Visit Report [facility] [address] [place] [address] OFFICE VISIT Date of Service: 11/18/24 MR#: [id number] Acct: [id number] Name: NIKO HUITRON Rep #: [id number] : 1960 Provider: Dr. Roly ochoa DO Age/Sex: 64/M Location: [facility] Status: Signed Intake Vital Signs 07/20/24 07:15 11/01/24 06:34 Height 6 ft 1 in 6 ft 1 in Intake Visit Reasons: right knee Chief Complaint: 2 week post-op Accompanied by: Is patient in pain?: Yes Pain scale (1-10): 7 Allergies No Known Allergies Allergy (Verified 11/18/24 08:01) Medications ???Medication ???Instructions ???Recorded ???Confirmed ???Type amlodipine 10 mg tablet 10 mg PO DAILY blood pressure 08/07/20 11/18/24 History hydrochlorothiazide 25 mg tablet 25 mg PO DAILY BP 06/18/21 11/18/24 History clopidogrel 75 mg tablet (Plavix) 75 mg PO DAILY BLODD THINNER 10/16/21 11/18/24 History accu-check fe plus See Rx Instructions .Route 09/10/22 11/18/24 History .COMPLEX DIABETES acetaminophen 500 mg capsule 500 mg PO Q6H PRN Pain 09/10/22 11/18/24 History metoprolol succinate 50 mg 100 mg PO DAILY heart 09/10/22 11/18/24 History tablet,extended release 24 hr losartan 100 mg tablet (Cozaar) 100 mg PO DAILY BP 11/26/22 11/18/24 History metformin 500 mg tablet,extended 500 mg PO BID DIABETES 11/26/22 11/18/24 History release 24 hr atorvastatin 40 mg tablet 40 mg PO QHS 07/14/23 11/18/24 History aspirin 81 mg tablet,delayed 81 mg PO DAILY 09/03/23 11/18/24 History release baclofen 20 mg tablet 20 mg PO TID 02/17/24 11/18/24 History hydralazine 50 mg tablet 100 mg PO TID 02/17/24 11/18/24 History benzonatate 200 mg capsule 200 mg PO TID PRN cough #20 caps 04/11/24 11/18/24 Rx lithium carbonate 300 mg capsule 900 mg (3 x 300 mg) PO 0800 04/19/24 11/18/24 Rx DEPRESSION 90 days #270 caps amitriptyline 100 mg tablet 100 mg PO QHS #90 tabs 05/31/24 11/18/24 Rx lactulose 10 gram/15 mL oral 15 ml PO DAILY Tremor #1,350 mL 05/31/24 11/18/24 Rx solution tizanidine 4 mg tablet 4 mg PO TID PRN muscle spasticity; 05/31/24 11/18/24 Rx muscle pain #270 tabs trazodone 50 mg tablet 100 mg (2 x 50 mg) PO QHS PRN 07/20/24 11/18/24 Rx sleep #180 tabs acetaminophen 500 mg tablet 1,000 mg (2 x 500 mg) PO Q6H #90 11/01/24 11/18/24 Rx tabs cephalexin 500 mg capsule 1,000 mg (2 x 500 mg) PO Q8H #6 11/01/24 11/18/24 Rx caps oxycodone 5 mg tablet 5 - 10 mg (1 - 2 x 5 mg) PO Q4H 11/01/24 11/18/24 Rx PRN pain 7 days #60 tabs oxycodone 5 mg tablet 5 - 10 mg (1 - 2 x 5 mg) PO Q6H 11/18/24 11/18/24 Rx PRN Pain Score 6-10/10 7 days #56 tabs Have you fallen in the past year?: No PFSH Medical History URI (upper respiratory infection) Carotid stenosis Hematoma of neck Wears glasses Alcohol use Bipolar disorder High cholesterol Seizures Non-smoker History of echocardiogram History of heart attack Hypertension Cardiology follow-up encounter History of stress test Osteoarthritis of left knee Carotid stenosis, bilateral Shortness of breath Bipolar 1 disorder Essential hypertension Pharyngitis Acute bronchitis Chest pain Shoulder pain Arthritis Surgical History History of carotid endarterectomy History of right-sided carotid endarterectomy Hx of transurethral resection of prostate Hx of total knee arthroplasty History of colonoscopy ( 10/2022) History of bursectomy History of arthroscopy of knee History of carpal tunnel release Family History Father Myocardial infarction Hypertension Alcoholism Mother Cancer Diabetes Brother Heart disease Hypertension Alcoholism Cancer prostate Grandfather Myocardial infarction CVA (cerebral vascular accident) Carotid arterial disease Social History Smoking Status: Never smoker alcohol intake: current alcohol intake frequency: 0-2 drinks per day Alcohol type: beer substance use type: does not use HPI right knee Details: This documentation accurately reflects the service provided and the decisions made by me, Dr. Roly Chi, DO 11/18/24 0749. Part of today???s visit was documented by Evelia Connor ATC, acting as scribe. NIKO HUITRON is a 64 year old M here today for s/p right total knee arthroplasty CT guided Robotic Assisted , excision of bursa DOS 11/01/2024. Patient rates his pain a 7/10 today. Patient states he feels like he should be further along by now when comparing the other knee when he had it done. Patient states he thought he would be using a cane by now but he is ambulating with a walker. He (more content not included)... Normal [facility] Carotid Duplex Ultrasoundon 11-17-2024 Carotid Duplex Ultrasound [facility] [address] [place] [address] Carotid Duplex Ultrasound 11/17/24 1111 MR#: [id number] Acct: [id number] Name: NIKO HUITRON Rep #: [id number] : 1960 64 From: Soy Perez MD Attending Dr: Dr. Soy Perez MD Status: REG C LI Ordering Dr: Soy Perez MD Date: 11/17/24 Location: [facility] Sex: M C Admitted: Reason For Study: Carotid Stenosis Rt. Velocities/BP Lt. Velocities/BP Prox CCA 78.8/17.3 cm/sec. Prox CCA 107.3/32.7 cm/sec. Mid CCA 63.7/14.4 cm/sec. Mid CCA 87.5/27.2 cm/sec. Dist CCA 60.1/12.6 cm/sec. Dist CCA 69.2/21.7 cm/sec. Prox ICA 61.3/18.3 cm/sec. Prox ICA 74.7/21.7 cm/sec. Mid ICA 80.2/23.6 cm/sec. Mid ICA 92.0/23.9 cm/sec. Dist ICA 61.3/18.3 cm/sec. Dist ICA 72.9/14.4 cm/sec. Rt. ICA/CCA = 1.3. Lt. ICA/CCA = 1.1. Prox ECA 190.4/28.8 cm/sec. Prox ECA 144.7/28.3 cm/sec. Rt. Vert. 37.3/14.2 cm/sec. Lt. Vert. 34.9/9.4 cm/sec. Right Extracranial There is homogeneous, smooth atherosclerotic plaque noted in the right common carotid artery. There is heterogeneous, smooth atherosclerotic plaque noted in the right internal carotid artery. The right external carotid artery is not well visualized. Antegrade flow is noted in the right vertebral artery. HX CEA. Left Extracranial There is homogeneous, smooth atherosclerotic plaque noted in the left common carotid artery. There is heterogeneous, irregular atherosclerotic plaque noted in the left internal carotid artery. There is homogeneous, smooth atherosclerotic plaque noted in the left external carotid artery. Antegrade flow is noted in the left vertebral artery. Procedure Carotid Duplex 86750. This is a Carotid Duplex examination using B-mode, color flow and specral Doppler. Exam performed in department. VL/Carotid Duplex Ultrasound Interpretation Summary Mild (<50%) stenosis right extracranial internal carotid. Mild (<50%) stenosis left extracranial internal carotid. Patent and antegrade vertebrals bilaterally. Ordering Physician: Soy Perez Referring Physician: Silverio Salmeron Performed By: Helena Helton RVT and Student 11/17/24 1523 Date Soy Perez MD CC: Dr. Soy Perez MD; Dr. Silverio Salmeron MD Date Dictated: 11/17/24 1111 Date Transcribed: 11/17/241522 Solar Manufacturer'S Representative: Signed Normal [facility] GANGLIOSIDE ANTIBODIESon ASIALO-GM1 ANTIBODIES, IGG/IGM 60 IV High 0-[address] [facility] Comment on above: Order Comment: Karan dent Type: BLOOD SPECIMEN Ordering Facility: [facility] Address: [address] [place] [address] Performed By: #### 2 4323-8, 2532-0 #### [facility] CLIA [id number] [address] [place] [address] [place] GD1A ANTIBODIES, IGG/IGM 6 IV Normal 0-[address] [facility] Comment on above: Order Comment: Karan dent Type: BLOOD SPECIMEN Ordering Facility: [facility] Address: [address] [place] [address] Performed By: #### 2 4323-8, 2-0 #### [facility] CLIA [id number] [address] [place] [address] [place] GD1B ANTIBODIES, IGG/IGM 16 IV Normal 0-[address] [facility] Comment on above: Order Comment: Speci men Type: BLOOD SPECIMEN Ordering Facility: [facility] Address: [address] [place] [address] Performed By: #### 2 4323-8, 2532-0 #### [facility] CLIA [id number] [address] [place] [address] [place] GM1 ANTIBODIES, IGG/IGM 9 IV Normal 0-[address] [facility] Comment on above: Order Comment: Speci men Type: BLOOD SPECIMEN Ordering Facility: [facility] Address: [address] [place] [address] Performed By: #### 2 4323-8, 2-0 #### [facility] CLIA [id number] [address] [place] [address] [place] GM2 ANTIBODIES 6 IV Normal 0-[address] [facility] Comment on above: Order Comment: Speci men Type: BLOOD SPECIMEN Ordering Facility: [facility] Address: [address] [place] [address] Performed By: #### 2 4323-8, 2-0 #### [facility] CLIA [id number] [address] [place] [address] [place] GQ1B ANTIBODIES, IGG/IGM 6 IV Normal 0-[address] [facility] Comment on above: Order Comment: Speci men Type: BLOOD SPECIMEN Ordering Facility: [facility] Address: [address] [place] [address] Result Comment: INTE RPRETIVE INFORMATION: Ganglioside (Asialo-GM1, GM1, GM2, GD1a, GD1b, and GQ1b) Antibodies, IgG/IgM 29 IV or less: Negative 30-50 IV: Equivocal 51-100 IV: Positive 101 IV or greater: Strong Positive Ganglioside antibodies are associated with diverse peripheral neuropathies. Elevated antibody levels to ganglioside-monosialic acid (GM1), and the neutral glycolipid, asialo GM1 are associated with motor or sensorimotor neuropathies, particularly multifocal motor neuropathy. Anti-GM1 may occur as IgM (polyclonal or monoclonal) or IgG antibodies. These antibodies may also be found in patients with diverse connective tissue diseases as well as normal individuals. GD1a antibodies are associated with different variants of Guillain-Stanton syndrome (GBS) particularly acute motor axonal neuropathy while GD1b antibodies are predominantly found in sensory ataxic neuropathy syndrome. Anti-GQ1b antibodies are seen in more than 80 percent of patients with Johnson-Noe syndrome and may be elevated in GBS patients with ophthalmoplegia. The role of isolated anti-GM2 antibodies is unknown. These tests by themselves are not diagnostic and should be used in conjunction with other clinical parameters to confirm disease. This test was developed and its performance characteristics determined by [facility]. It has not been cleared or approved by the [place] Food and Drug Administration. This test was performed in a CLIA certified laboratory and is intended for clinical purposes. Performed By: [facility] [address] [place] [address] French Comber: Barrett Pak MD, PhD CLIA Number: [id number] Performed By: #### 2 4323-8, 2532-0 #### [facility] CLIA [id number] [address] [place] [address] [place] CNOVSPon 11-07-2024 CNOVSP Visit (SP) Office (HEMAWS) NIKO HUITRON ([id number]) 1960 M Date Time Provider Department 11/07/24 8:50 AM CARLOS STOREY During your visit today, we recorded the following information about you: Temperature Pulse Blood pressure 98.3 degrees 77/minute 157/74 Carlos Storey DO 11/07/2024 9:21 AM Signed Oncologic problem(s): 1) IgG kappa monoclonal gammopathy. 2) IgM lambda monoclonal gammopathy. 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 4) Low level complement fixing AIHA. HPI: The patient is a 64-year-old male with a PMH significant for HTN, [...] had an EMG performed on 01/15/2022 at [facility]. The study was an abnormal test [...] or with exertion. He was admitted to [facility] in July 2020 for an episode of chest pain. [place] was ruled out. He underwent a stress [...] Had left knee replacement 10/2021. Had right carotid endarterectomy by Dr. Gilbert 12/09/2022. On Plavix and ASA. Operative report reviewed in [facility] system. Was noted to have tremor by his neurologist--elevated ammonia level--started on Lactulose. Stopped drinking altogether in 08/2022. Hasn't had alcohol since. Has lost ~30 lbs since April by quitting drinking and cutting calories. I feel much better. Presents for ongoing oncologic management. OV 11/06/2023: Saw neurologist at [facility]. Received 4 injections total--2 cervical and 2 lumbar. On medical marijuana. No alcohol. Home blood glucose 150-160s. Occasional numbness in fingertips--comes and goes--stable. Sensory neuropathy LEs stable--numb and burning from mid calf to toes--stable. Not on any symptomatic medication. Balance is normal. Presents for on (more content not included)... Normal [facility] Inital Evaluation (1) - PTon 11-07-2024 Inital Evaluation (1) - PT [facility] Physical Therapy [facility] [address] [place] [address] / REHABILITATION SERVICES INITIAL EVALUATION MR#: [id number] Acct: [id number] Name: NIKO HUITRON Rep #: [id number] : 1960 64 From: Husam Fox DPT Referring Dr.: Dr. Roly Chi DO Status: R EG RCR Insurance: MEDICARE PART A B [employer] Patient's Visit Information Visit Information Visit Information: NIKO HUITRON is a 64 year old M referred to Physical Therapy by Dr. Roly Chi DO with a diagnosis of R TKA, DOS: 11/01/24. Date of Evaluation: 11/04/24 Physical Therapist: Husam Fox DPT Visit Plan Frequency: 3x /Week Duration: 6 Weeks Plan: 1) progressive ROM of R knee to 0-0-120deg. 2) quad activation progressing to functional strengthening. 3) vaso and ice for edema control 4) progress gait to no Ad as able. Subjective Subjective: Pt. is here today for his initial evaluation with diagnosis of R TKA DOS: 11/01/24. Pt. arrives with use of FWW this date. pt. reports having some more pain this time compared to when he had is L knee replaced. Pt. reports 5/10 pain in his R knee today. He reports frequent walking, icing and has been doing some of his exercises. Pt. reports no marked calf pain, no N/T and no dizziness. Pt. is retired, but would like to get back to all household work and traveling without issues. Pt. is having some trouble sleeping as well. Pain R knee: Pain Intensity (Out of 10): 5 Pain Intensity Range: 3 and 7 Objective Objective: POSTURE: Pt. has slight flexed posture with wt. shift to L side. PT. has wide LUIS and uses FWW for balance PALPATION: Pt. has tenderness throughout R knee. Pt. has marked edema, non pitting throughout calf and knee. NEURO: normal throughout, 2+ achilles DTR. Pt. is able to rise on heels and toes without issues. ROM: 0-10-80deg. Pt. has tight B calves and HS. MMT: R knee: flexion 5#, ext 1#; hip: flexion 0#, abd 3#, ext 3#. GAIT: pt. ambulates with FWW, but has decrased TKE during stance phase on R side and decreased knee flexion during swing phase. STAIRS: step to pattern noted loading LLE only with use of B HR. Balance/Special Test Scores TUG Test Time Seconds: 38 WOMAC Total Score: 73 WOMAC Percentatge: 23.9600 Goals Goal 1:: LTG: Pt. to be I with HEP. Goal Time Frame: 4-6 Weeks Goal 2:: STG: pt. to have increased R knee ROM to 0-0-120deg. Goal Time Frame: 2-4 Weeks Goal 3:: LTG: Pt. to ambulate with normal gait pattern with out use of AD. Goal Time Frame: 6-8 Weeks Goal 4:: LTG: Pt. to complete TUG without AD with time less than 10seconds. Goal Time Frame: 6-8 Weeks Goal 5:: LTG: Pt. to have increased RLE strength symmetrical to L side. Goal Time Frame: 6-8 Weeks Goal 6:: LTG: Pt. to have symmetrical girth between bilateral knees indicating decreased edema. Goal Time Frame: 4-6 Weeks Rehabilitation Potential Physical Therapy Diagnosis: Pt. has signs and symptoms consistent with R TKA, DOS: 11/01/24. Pt. has marked hypomobility, weakness, difficulty walking. Pt. would benefit from PT to address the above limitations progressing back to all recreational and household activities as previously. Rehabilitation Potential: Excellent Anticipated Interventions Patient/Client Instruction: Educate patient on: Condition, Plan of Care, Risk Factors and Benefits of Fitness Program For the Purpose of:: To improve decision making, To facilitate caregiver knowledge, To improve self management, To prevent re-injury, To improve ability to perform tasks related to life management and To improve tolerance to ADL's Therapeutic Exercise to Include: Strength training, Power training, Endurance training, Balance training, Postural training, Flexibilty training, Gait and locomotor training, Passive ROM and Active ROM For the Purpose of:: To decrease pain, To decrease swelling/inflammation, To increase ROM, To improve nutrient delivery to tissue, To increase oxygenation perfusion, To improve muscle performance and motor function, To improve ability to perform ADL's, To improve health of tissue, To decrease soft tissue restriction and To increase flexibility/ROM Manual Therapy Techniques to Include: Scar massage, Mobilization, Passive ROM and Soft tissue mobilization For the Purpose of:: To decrease pain, To increase ROM, To improve nutrient delivery to tissue and To increase oxygenation perfusion Cryotherapy (ice pack, ice massage): Yes Vasopneumatic device: Yes For the Purpose of:: To decrease pain, To increase ROM, To improve nutrient delivery to tissue, To increase oxygenation perfusion, To improve muscle performance and motor function and To improve ability to perform ADL's Text: Thank you for the opportunity to evaluate your patient. For Medicare and Medicare HMO plans, please (more content not included)... Normal [facility] Bedside Glucoseon 11-01-2024 FINGERSTICK GLU 227 mg/dL High 74-106 [facility] Comment on above: Result Comment: SARANYA GEMENT OF PATIENT CARE PER NURSING PROTOCOL Performed By: #### L 502.0250, L100.0100, L501.9985, L500.4050, L500.4100 #### [facility] [address] [place], [address] FINGERSTICK GLU 226 mg/dL High 74-106 [facility] Comment on above: Result Comment: SARANYA GEMENT OF PATIENT CARE PER NURSING PROTOCOL Performed By: #### L 502.0250, L100.0100, L501.9985, L500.4050, L500.4100 #### [facility] [address] [place], [address] Decalcification bone/plaqueo n 11-01-2024 Decalcification bone/plaque Patient Age/Sex Location Account Attending Physician NIKO HUITRON 64/M [facility] [id number] Dr. Roly Chi, Specimen: [id number] Received: 11/01/24 Status: AUBREEEstevan Ronal Num: [id number] Spec Type: TOTAL KNEE Subm Dr: Dr. Roly Chi DO [facility] OPERATION: Right total knee replacement robotic arm assist PRE-OP DIAGNOSIS: Mechanical pain of right knee TISSUE SUBMITTED: Right knee bone and tissue MICROSCOPIC DIAGNOSIS Bone and soft tissue, right knee, total knee replacement/resection: Pieces of bone with degenerative osteoarthritic changes. Fragments of dense fibroconnective tissue and reactive synovial tissue. SJ: 11/04/2024 MICROSCOPIC DESCRIPTION Slides are reviewed. GROSS DESCRIPTION Received is one container designated bone and soft tissue right knee. The specimen consists of multiple fragments of medina-yellow bone measuring in aggregate 17.0 x 15.0 x 2.0 cm. Also in the specimen container are multiple fragments of yellow-white soft tissue measuring in aggregate 2.0 x 1.0 x 0.5cm. A number of bony fragments contain articular surfaces consistent with tibial plateau and femoral condyle and displaying prominent osteophyte formation, eburnation and bone erosion. Upstairs Maid sections are submitted in two cassettes as follows: 1 - soft tissue, 2 - bone after decalcification. / AM. 11/01/2024 TC:5 [facility]: [address], [address] Patient Age/Sex Location Account Attending Physician NIKO HUITRON 64/M [facility] [id number] Dr. Roly Chi DO Signed (signature on file) Dr. Francisco Victoria MD 11/04/24 1155 Normal [facility] Comment on above: Performed By: #### P DEC ####[facility] [address] [place], [address] Discharge Instructionon 10-23 Discharge Instruction [facility] Medical Records Department [address] [place] [address] Instructions for Home/Discharge Instructions 11/01/24 1041 MR#: [id number] Acct: [id number] Name: NIKO HIUTRON Rep #: [id number] : 1960 64 From: Roly Chi DO PCP: Dr. Silverio Salmeron MD Status:REG [facility] Discharge Instructions Diet Discharge Diet: No restrictions Activity Weight Bearing Status: Weight bearing as tolerated Dressing / Incision Call your doctor if you observe: Shortness of breath and Chest pain Additional Dressing/Incision Instructions:: Ice and elevate lower extremities 2 weeks while not ambulating. Ambulation is encouraged. Weight bearing as tolerated. Use assistive devise for stabil ity. Encourage FULL knee extension and flexion 1 time EVERY time you get up and down and MULTIPLE times per day. No showering until 72 hours after surgery. May begin showering postop day #3. Remove the dressing prior to shower and gently wash with warm water and antibacterial soap then pat dry and place abdominal pad (or plain gauze) and TATO hose over top. This is to be done daily. Do not submerge for 3 weeks. If not showering daily after the initial 72 hours then you must clean incision and change dressing daily after the dressing comes off, must come off by 7 days postop. Do not allow animals near the incision area. Keep clean. Follow anti-coagulation recommendations as prescribed. Do not take any NSAIDs while on blood thinner. Do not take any additional narcotic pain medication other than what was prescribed on your surgery day without discussing with physician. Narcotic medication can be addictive. Do not drink alcohol while taking narcotics. Supplement narcotic prescription with acetaminophen 1000 mg 4 times a day. Start physical therapy. If you are not currently scheduled for physical therapy or you are unsure of appointment time please call office [place] to arrange. Call Dr. Chi with any concerns. Follow Up Care Please Follow Up With: Roly Chi DO When: 2 weeks Test Results: Test results from this visit will be discussed in further detail at your follow-up appointment, if applicable. Discharge Plan Admission Primary Reason for Your Visit: Right total knee arthroplasty Attending Provider: Roly Chi Primary Care Provider: Silverio Salmeron Consulting Providers: Luke Odell Instructions Print Language: Thai Discharge Orders/Prescriptions Prescriptions: New acetaminophen 500 mg tablet 1,000 mg PO Q6H Qty: 90 0RF cephalexin 500 mg capsule 1,000 mg PO Q8H Qty: 6 0RF Rx Instructions: Take 3 tabs before you go to bed and 3 tabs after 5 AM morning after surgery when you wake up oxycodone 5 mg tablet 5 - 10 mg PO Q4H PRN (Reason: pain) 7 Days Qty: 60 0RF Eliquis 2.5 mg tablet 2.5 mg PO BID Qty: 28 0RF Rx Instructions: Begin morning after surgery. Continued amlodipine 10 mg tablet 10 mg PO DAILY metoprolol succinate 50 mg tablet extended release 24 hr 100 mg PO DAILY hydrochlorothiazide 25 mg tablet 25 mg PO DAILY accu-check fe plus See Rx Instructions .ROUTE .COMPLEX Rx Instructions: ACCU-CHECK atorvastatin 40 mg tablet 40 mg PO QHS hydralazine 50 mg tablet 100 mg PO TID amitriptyline 100 mg tablet 100 mg PO QHS Qty: 90 3RF lactulose 10 gram/15 mL solution 15 ml PO DAILY Qty: 1350 3RF tizanidine 4 mg tablet 4 mg PO TID PRN (Reason: muscle spasticity; muscle pain) Qty: 270 3RF baclofen 20 mg tablet 20 mg PO TID lithium carbonate 300 mg capsule 900 mg PO 0800 90 Days Qty: 270 1RF Rx Instructions: Please take 1 capsule in the morning and 2 capsules at bedtime benzonatate 200 mg capsule 200 mg PO TID PRN (Reason: cough) Qty: 20 0RF trazodone 50 mg tablet 100 mg PO QHS PRN (Reason: sleep) Qty: 180 2RF losartan [Cozaar] 100 mg tablet 100 mg PO DAILY Patient Comments: TAKE 1 TABLET BY MOUTH ONCE DAILY metformin 500 mg tablet extended release 24 hr 500 mg PO BID Held acetaminophen 500 mg capsule 500 mg PO Q6H PRN (Reason: Pain) Hold Instructions: Duplicate aspirin 81 mg tablet,delayed release (DR/EC) 81 mg PO DAILY Hold Instructions: Resume on 11/04/24. clopidogrel [Plavix] 75 mg tablet 75 mg PO DAILY Hold Instructions: May resume the day after the completion of Eliquis prescription Patient Comments: STOP 2 DAYS PRIOR Discontinued meloxicam 15 mg tablet 15 mg PO DAILY Other Ambulatory Orders: 12 Lead EKG (Routine) Timeframe: 20241013 Location: None Selected Ordered By: Dr. Roly Chi Type Screen - PAT ONLY (Routine) Timeframe: 20241101 Facility: [facility] - Location: Laboratory Ordered By: Dr. Roly Chi Referrals / Follow Up: Silverio Salmeron MD [Primary Care Provider] - Disposition Disposition (needs filled in before D/C Order can be placed): Home, Self Care 11/01/24 (more content not included)... Normal [facility] Knee 1 or 2 Viewson 11-01-20 Knee 1 or 2 Views [facility] Imaging Services [address] [place] [id number] Knee 1 or 2 Views MR#: [id number] Acct: [id number] Name: NIKO HUITRON Rep #: [id number] : 1960 64 From: Simeon Fink PCP: Dr. Silverio Salmeron MD Status: [facility] Study: Knee 1 or 2 Views Date of Exam: 11/01/24 Exam# [id number] Ordering Dr: [place] [id number] EXAM: XR RIGHT KNEE, 1 OR 2 VIEWS CLINICAL INDICATION: Postop -- in PACU TECHNIQUE: Frontal and/or lateral views of the right knee. COMPARISON: No relevant prior studies available. FINDINGS: BONES/JOINTS: Right total knee arthroplasty. Components appear well seated. No acute fracture. No subluxation. Normal alignment. No sclerotic or destructive changes observed. SOFT TISSUES: Gas within the knee joint in the soft tissues around the right knee. No radiopaque foreign body. RAD/Knee 1 or 2 Views IMPRESSION: Gas within the knee joint in the soft tissues around the right knee. Electronically Signed: Simeon Miranda MD at 4:17 EST , CC: Dr. Silverio Salmeron MD; Dr. Roly Chi DO Solar Manufacturer'S Representative: Signed [facility] MR/POSTOP.[facility] 11-01-2024 MR/POSTOP[address] Medical Records Department [address] [place] [address] Anesthesia Postop Eval I 11/01/24 1328 MR#: [id number] Acct: [id number] Name: NIKO HUITRON Rep #: [id number] : 1960 64 From: Abdulkadir Rush CRNA PCP: Dr. Silverio Salmeron MD Status:REG SDC Y Race: C Location: [place] [address] Anesthesia: Postop Eval I Current Vital Signs Temperature: 98.3 F Pulse Rate: 64 Blood Pressure: 120/55 Respiratory Rate: 16 Pulse Ox: 99 Oxygen Delivery Method: Room Air Assessment Airway patent: Yes Spontaneous unlabored respirations: Yes Mental status: Awake and Calm nausea: No Vomiting: No Anesthesia Complication: No Fluid Hydration Crystalloid volume administer (ml): 1,600 Total IV fluid infused: 1,600 Progress Note Anesthesia document: Postop Eval 1 completed: Yes 11/01/24 1328 Date Abdulkadir Rush REAL ESTATE ASSOCIATE ATTORNEY Cosigner Signature: Date CC: Signed [facility] MR/[id number] 11-01-2024 MR/POSTOPAN2 [facility] Medical Records Department [address] [place] [address] Anesthesia Postop Eval II 11/01/24 1409 MR#: [id number] Acct: [id number] Name: NIKO HUITRON Rep #: [id number] : 1960 64 From: Domenic Tanner MD PCP: Dr. Silverio Salmeron MD Status:REG SDC Y Race: C Location: [facility]- Anesthesia Postop Eval I Sum Postop Eval Completion status Anesthesia document: Postop Eval 1 completed: Yes Anesthesia Postop Eval I Summary Anesthesia Postop Eval I Summary: Anesthesia Postop Eval I: Assessment Summary Airway patent Yes 11/01/24 13:28 REAL ESTATE ASSOCIATE ATTORNEY.[email or web address] Spontaneous unlabored Yes 11/01/24 13:28 REAL ESTATE ASSOCIATE ATTORNEY.[email or web address] respirations Mental status Awake,Calm 11/01/24 13:28 REAL ESTATE ASSOCIATE ATTORNEY.[email or web address] nausea No 11/01/24 13:28 REAL ESTATE ASSOCIATE ATTORNEY.JBLOU Vomiting No 11/01/24 13:28 REAL ESTATE ASSOCIATE ATTORNEY.JBLOU Anesthesia Postop Eval I: Fluid Summary Crystalloid volume administer 1,600 11/01/24 13:28 REAL ESTATE ASSOCIATE ATTORNEY.JBLOU (ml) Colloids volume administered ( ml) Blood Product volume administered (ml) Total IV fluid infused 1,600 11/01/24 13:28 REAL ESTATE ASSOCIATE ATTORNEY.JBLOU Anesthesia Postop Eval I: Summary Notes Anesthesia Complication No 11/01/24 13:28 REAL ESTATE ASSOCIATE ATTORNEY.JBLOU Anesthesia Complication Comment: Post-operative progress note Anesthesia: Postop Eval II Evaluation Mental status: Awake Pain Level: 0 nausea: No Vomiting: No 11/01/24 140 Date Domenic Tanner MD Cosigner Signature: Date CC: Signed Normal [facility] Operative Reporton 4 Operative Report [facility] Medical Records Department [address] [place] [address] Operative Report 11/01/24 1038 MR#: [id number] Acct: [id number] Name: NIKO HUITRON Rep #: [id number] : 1960 64 From: Roly Chi DO PCP: Dr. Silverio Salmeron MD Status:[facility] Location: [place] [address] Operative Report (Standard) Operative Information Date of Procedure: 11/01/24 Pre-Operative Diagnosis: Right knee DJD Post-Operative Diagnosis: Right knee DJD Surgery/Procedure Performed: Right total knee arthroplasty headend technician: Yes Corduroy Cutting Supervisor: Alan Yates Tasks completed by hotel assistant general manager: Opening closing Type of Anesthesia: Spinal RN Documented Start/Stop Times: Operation Date: 11/01/24 08:15 Case Time Into Pre-Op 11/01/24 06:09 Into Room 11/01/24 07:59 Anesthesia Start 11/01/24 08:01 Procedure Start 11/01/24 08:25 Procedure End 11/01/24 10:27 Procedure Start Time: 08:25 Procedure Stop Time: 10:27 Select all DRAINS/GRAFTS/IMPLANTS that apply: Prosthetic device Prosthetic device details: [place] Estimated Blood Loss: 125 Specimen collected: Yes Description of specimen(s) removed: Bone and bursa Description of surgery: Preoperative diagnosis: Right knee DJD prepatellar bursitis Postoperative diagnosis: [Same] Procedure: Right total knee arthroplasty CT guided Robotic Assisted , excision of bursa Implant: Thanh triathlon [press fit], femoral component size6, tibial baseplate size 6, [asymmetric] patella size 26, polyethylene X3 size [9] [CS] Anesthesia: [spinal] with adductor canal block Tourniquet time: [12] [minutes at 300 mmHg] Complications: None Condition: Stable to PACU Estimated blood loss: 125 cc [Digital Media Producer Alan Yates. My physician trust administrative assistant was a vital part of this case. He was important in appropriate retraction during the case, and protection of soft tissues during procedure. His intimate knowledge of the case and my steps aided in safe and expedient completion of the procedure as well as appropriate position of the extremity during the case. He was also vital in assisting with closure under my direct supervision.] Indication for procedure: This is a 64-year-old male with long standing degenerative joint disease of the knee who has failed conservative treatment and wished to proceed with elective total knee arthroplasty. Risk benefits and alternatives were reviewed including; risk of bleeding, infection, nerve artery and tissue damage, continued pain, postoperative stiffness, venous thromboembolism, need for postoperative rehabilitation, mechanical feel to the knee, and expected postoperative course. The pre- operative CT and templating was performed with component sizing. Procedure: The patient was met in the preoperative holding area. The operative extremity was identified by both patient and physician and was marked. Patient was met by anesthesia. An adductor canal block was placed by anesthesia [postoperatively] the patient was brought back to the operating room on a wheeled cart and transferred to the operating table in the supine position. Anesthesia was started. A well-padded tourniquet was placed on the operative extremity. The patient was prepped and draped in the usual sterile fashion. A timeout was called to ensure the proper patient procedure and extremity were being contemplated. An esmarch was used to exsanguinate the extremity. The tourniquet was inflated. He did have a large prepatellar bursal sac that was filled with fluid A 10 blade scalpel was used to make a midline incision down through the skin and subcutaneous tissue. Skin retractors placed. The prepatellar bursa was excised Bovie and Aquamantis were used to perform meticulous hemostasis. full-thickness flaps were elevated medial and lateral along the joint capsule. A deep blade scalpel was used to perform a medial parapatellar arthrotomy. The knee was brought to full extension. A bovie was used to release the soft tissues off the most proximal aspect of the medial tibial plateau, a three-quarter inch curved osteotome was also used in this process. The infrapatellar fat pad was excised. [The suprapatellar fat pad was excised partially anteriorolateraly and portion the anterioromedial pad was elevated from the femur]. At this point our intra-articular femoral array was placed at a 45 degree angle proximal and posterior to the medial epicondyle. femoral checkpoint was placed at this time. [Our tibial array was placed partially intra incisional 1 stab incision was made for the inferior pin with a 15 blade scaple, and ] pins were placed and attached to the tibial array , tibial checkpoint was placed in the proximal tibial metaphysis. Tourniquet was let down. At this point registration johnson were taken throughout the knee . Once the knee was registered we then tensioned the medial and l (more content not included)... Normal [facility] Type AND Screenon 11-01-2024 Ab SCREEN GEL Negative Normal [facility] Comment on above: Order Comment: S Performed By: #### B TS ####[facility] [address] [place], [address] B2 Microglob SerPl-mCncon Spji-9-Gmainlzxwarij [Mass/Vol] 2.3 ug/mL Normal <3.[address] [facility] Comment on above: Order Comment: Karan dent Type: BLOOD SPECIMEN Ordering Facility: [facility] Address: [address] [place] [address] Result Comment: Beta -2 Microglobulin test is performed using the [employer] immunoturbidimetric method. Results obtained with different methods or kits cannot be used interchangeably. Performed By: #### 2 4323-8, 2532-0 #### [facility] CLIA [id number] [address] [place] [address] [place] CBC W Auto Differential pane l (Bld)on 10-31-2024 Basophils (Bld) [#/Vol] 0.12 10*3/uL High <0.[address] [facility] Comment on above: Order Comment: Karan dent Type: BLOOD SPECIMEN Ordering Facility: [facility] Address: [address] [place] [address] Performed By: #### 5 7021-8 #### [facility] CLIA [id number] [address] [place] [address] [place] Basophils/100 WBC (Bld) 1.1 % Normal [facility] Comment on above: Order Comment: Karan dent Type: BLOOD SPECIMEN Ordering Facility: [facility] Address: [address] [place] [address] Performed By: #### 5 7021-8 #### [facility] CLIA [id number] [address] [place] [address] [place] Differential cell count method Nom (Bld) Auto Normal [facility] Comment on above: Order Comment: Speci men Type: BLOOD SPECIMEN Ordering Facility: [facility] Address: [address] [place] [address] Performed By: #### 5 7021-8 #### [facility] CLIA [id number] [address] [place] [address] [place] Eosinophils (Bld) [#/Vol] 0.22 10*3/uL Normal <0.[address] [facility] Comment on above: Order Comment: Speci men Type: BLOOD SPECIMEN Ordering Facility: [facility] Address: [address] [place] [address] Performed By: #### 5 7021-8 #### [facility] CLIA [id number] [address] [place] [address] [place] Eosinophils/100 WBC (Bld) 2.1 % Normal [facility] Comment on above: Order Comment: Speci men Type: BLOOD SPECIMEN Ordering Facility: [facility] Address: [address] [place] [address] Performed By: #### 5 7021-8 #### [id number] [address] [place] [address] [place] Erythrocyte distribution width (RBC) [Ratio] 13.4 % Normal 11.5-15.[address] [facility] Comment on above: Order Comment: Speci men Type: BLOOD SPECIMEN Ordering Facility: [facility] Address: [address] [place] [address] Performed By: #### 5 7021-8 #### [facility] CLIA [id number] [address] [place] [address] [place] Hematocrit (Bld) [Volume fraction] 37.8 % Low 39.0-51.[address] [facility] Comment on above: Order Comment: Speci men Type: BLOOD SPECIMEN Ordering Facility: [facility] Address: [address] [place] [address] Performed By: #### 5 7021-8 #### [facility] CLIA [id number] [address] [place] [address] [place] Hemoglobin (Bld) [Mass/Vol] 13.0 g/dL Normal 13.0-17.[address] [facility] Comment on above: Order Comment: Speci men Type: BLOOD SPECIMEN Ordering Facility: [facility] Address: [address] [place] [address] Performed By: #### 5 7021-8 #### [facility] CLIA [id number] [address] [place] [address] [place] Immature granulocytes (Bld) [#/Vol] 0.05 10*3/uL Normal <0.[address] [facility] Comment on above: Order Comment: Speci men Type: BLOOD SPECIMEN Ordering Facility: [facility] Address: [address] [place] [address] Performed By: #### 5 7021-8 #### [facility] CLIA [id number] [address] [place] [address] [place] Immature granulocytes/100 WBC (Bld) 0.5 % Normal [facility] Comment on above: Order Comment: Speci men Type: BLOOD SPECIMEN Ordering Facility: [facility] Address: [address] [place] [address] Performed By: #### 5 7021-8 #### [facility] CLIA [id number] [address] [place] [address] [place] Lymphocytes (Bld) [#/Vol] 2.89 10*3/uL Normal 1.00-4.[address] [facility] Comment on above: Order Comment: Speci men Type: BLOOD SPECIMEN Ordering Facility: [facility] Address: [address] [place] [address] Performed By: #### 5 7021-8 #### [facility] CLIA [id number] [address] [place] [address] [place] Lymphocytes/100 WBC (Bld) 27.1 % Normal [facility] Comment on above: Order Comment: Speci men Type: BLOOD SPECIMEN Ordering Facility: [facility] Address: [address] [place] [address] Performed By: #### 5 7021-8 #### [facility] CLIA [id number] [address] [place] [address] [place] MCH (RBC) [Entitic mass] 30.0 pg Normal 26.0-34.[address] [facility] Comment on above: Order Comment: Speci men Type: BLOOD SPECIMEN Ordering Facility: [facility] Address: [address] [place] [address] Performed By: #### 5 7021-8 #### [facility] CLIA [id number] [address] [place] [address] [place] MCHC (RBC) [Mass/Vol] 34.4 g/dL Normal 30.5-36.0 [facility] Comment on above: Order Comment: Speci men Type: BLOOD SPECIMEN Ordering Facility: [facility] Address: [address] [place] [address] Performed By: #### 5 7021-8 #### [facility] CLIA [id number] [address] [place] [address] [place] MCV (RBC) [Entitic vol] 87.3 fL Normal 80.0-100.[address] [facility] Comment on above: Order Comment: Speci men Type: BLOOD SPECIMEN Ordering Facility: [facility] Address: [address] [place] [address] Performed By: #### 5 7021-8 #### [facility] CLIA [id number] [address] [place] [address] [place] Monocytes (Bld) [#/Vol] 1.16 10*3/uL High <0.[address] [facility] Comment on above: Order Comment: Speci men Type: BLOOD SPECIMEN Ordering Facility: [facility] Address: [address] [place] [address] Performed By: #### 5 7021-8 #### [facility] CLIA [id number] [address] [place] [address] [place] Monocytes/100 WBC (Bld) 10.9 % Normal [facility] Comment on above: Order Comment: Speci men Type: BLOOD SPECIMEN Ordering Facility: [facility] Address: [address] [place] [address] Performed By: #### 5 7021-8 #### [facility] CLIA [id number] [address] [place] [address] [place] Neutrophils (Bld) [#/Vol] 6.21 10*3/uL Normal 1.45-7.[address] [facility] Comment on above: Order Comment: Speci men Type: BLOOD SPECIMEN Ordering Facility: [facility] Address: [address] [place] [address] Performed By: #### 5 7021-8 #### [facility] CLIA [id number] [address] [place] [address] [place] Neutrophils/100 WBC (Bld) 58.3 % Normal [facility] Comment on above: Order Comment: Speci men Type: BLOOD SPECIMEN Ordering Facility: [facility] Address: [address] [place] [address] Performed By: #### 5 7021-8 #### [facility] CLIA [id number] [address] [place] [address] [place] Nucleated RBC (Bld) [#/Vol] 10*3/uL Normal <0.[address] [facility] Comment on above: Order Comment: Speci men Type: BLOOD SPECIMEN Ordering Facility: [facility] Address: [address] [place] [address] Performed By: #### 5 7021-8 #### [facility] CLIA [id number] [address] [place] [address] [place] Nucleated RBC/100 WBC (Bld) [Ratio] 0.0 /[address] [facility] Comment on above: Order Comment: Speci men Type: BLOOD SPECIMEN Ordering Facility: [facility] Address: [address] [place], [place] [address] Performed By: #### 5 7021-8 #### [facility] CLIA [id number] [address] [place] [address] [place] Platelet mean volume (Bld) [Entitic vol] 9.5 fL Normal 9.0-12.[address] [facility] Comment on above: Order Comment: Speci men Type: BLOOD SPECIMEN Ordering Facility: [facility] Address: [address] [place], [place] [address] Performed By: #### 5 7021-8 #### [facility] CLIA [id number] [address] [place] [address] [place] Platelets (Bld) [#/Vol] 265 10*3/uL Normal 150-[address] [facility] Comment on above: Order Comment: Speci men Type: BLOOD SPECIMEN Ordering Facility: [facility] Address: [address] [place] [address] Performed By: #### 5 7021-8 #### [facility] CLIA [id number] [address] [place] [address] [place] RBC (Bld) [#/Vol] 4.33 10*6/uL Normal 4.20-6.00 [facility] Comment on above: Order Comment: Speci men Type: BLOOD SPECIMEN Ordering Facility: [facility] Address: [address] [place] [address] Performed By: #### 5 7021-8 #### [facility] CLIA [id number] [address] [place] [address] [place] WBC (Bld) [#/Vol] 10.65 10*3/uL Normal 3.70-11.00 [facility] Comment on above: Order Comment: Speci men Type: BLOOD SPECIMEN Ordering Facility: [facility] Address: [address] [place] [address] Performed By: #### 5 7021-8 #### [facility] CLIA [id number] [address] [place] [address] [place] Comprehensive metabolic 2000 panelon 10-31-2024 Albumin [Mass/Vol] 4.1 g/dL Normal 3.9-4.9 [facility] Comment on above: Order Comment: Speci men Type: BLOOD SPECIMEN Ordering Facility: [facility] Address: [address] [place] [address] Performed By: #### 2 4323-8, 2532-0 #### [facility] CLIA [id number] [address] [place] [address] [place] ALP [Catalytic activity/Vol] 64 U/L Normal 38-[address] [facility] Comment on above: Order Comment: Speci men Type: BLOOD SPECIMEN Ordering Facility: [facility] Address: [address] [place], [place] [address] Performed By: #### 2 4323-8, 2532-0 #### [facility] CLIA [id number] [address] [place] [address] [place] ALT [Catalytic activity/Vol] 27 U/L Normal 10-[address] [facility] Comment on above: Order Comment: Speci men Type: BLOOD SPECIMEN Ordering Facility: [facility] Address: [facility] [place] [address] Performed By: #### 2 4323-8, 2532-0 #### [facility] CLIA [id number] [address] [place] [address] [place] Anion gap [Moles/Vol] 11 mmol/L Normal 8-15 [facility] Comment on above: Order Comment: Speci men Type: BLOOD SPECIMEN Ordering Facility: [facility] Address: [address] [place] [address] Performed By: #### 2 4323-8, 2532-0 #### [facility] CLIA [id number] [address] [place] [address] [place] AST [Catalytic activity/Vol] 22 U/L Normal 14-[address] [facility] Comment on above: Order Comment: Speci men Type: BLOOD SPECIMEN Ordering Facility: [facility] Address: [address] [place] [address] Performed By: #### 2 4323-8, 2532-0 #### [facility] CLIA [id number] [address] [place] [address] [place] Bilirubin [Mass/Vol] 0.5 mg/dL Normal 0.2-1.3 [facility] Comment on above: Order Comment: Speci men Type: BLOOD SPECIMEN Ordering Facility: [facility] Address: [address] [place] [address] Performed By: #### 2 4323-8, 2532-0 #### [facility] CLIA [id number] [address] [place] [address] [place] Calcium [Mass/Vol] 9.8 mg/dL Normal 8.5-10.2 [facility] Comment on above: Order Comment: Speci men Type: BLOOD SPECIMEN Ordering Facility: [facility] Address: [address] [place] [address] Performed By: #### 2 4323-8, 2532-0 #### [facility] CLIA [id number] [address] [place] [address] [place] Chloride [Moles/Vol] 104 mmol/L Normal 98-107 [facility] Comment on above: Order Comment: Speci men Type: BLOOD SPECIMEN Ordering Facility: [facility] Address: [address] [place] [address] Performed By: #### 2 4323-8, 0 #### [facility] CLIA [id number] [address] [place] [address] [place] CO2 [Moles/Vol] 23 mmol/L Normal 22-[address] [facility] Comment on above: Order Comment: Speci men Type: BLOOD SPECIMEN Ordering Facility: [facility] Address: [address] [place] [address] Performed By: #### 2 4323-8, 2531-0 #### [facility] CLIA [id number] [address] [place] [address] [place] Creatinine [Mass/Vol] 0.93 mg/dL Normal 0.73-1.22 [facility] Comment on above: Order Comment: Speci men Type: BLOOD SPECIMEN Ordering Facility: [facility] Address: [address] [place] [address] Performed By: #### 2 4323-8, 0 #### [facility] CLIA [id number] [address] [place] [address] Creatinine and Glomerular filtration rate.predicted panel (S/P/Bld) 91 mL/min/1.73m??? Normal >=[address] [facility] Comment on above: Order Comment: Speci men Type: BLOOD SPECIMEN Ordering Facility: [facility] Address: [address] [place], [place] [address] Result Comment: Jillian mated Glomerular Filtration Rate (eGFR) is calculated using the 2020 CKD-EPI creatinine equation. This equation utilizes serum creatinine, sex, and age as parameters. The creatinine assay has traceable calibration to isotope dilution-mass spectrometry. Refer to KDIGO guidelines for clinical interpretation. In patients with unstable renal function, e.g. those with acute kidney injury, the eGFR may not accurately reflect actual GFR. Performed By: #### 2 4323-8, 0 #### [facility] CLIA [id number] [address] [place] [address] [place] Glucose [Mass/Vol] 184 mg/dL High 74-99 [facility] Comment on above: Order Comment: Speci men Type: BLOOD SPECIMEN Ordering Facility: [facility] Address: [address] [place] [address] Result Comment: The [place] [employer] (ADA) provides guidance for cutoff values for fasting glucose and random glucose. The ADA defines fasting as no caloric intake for at least 8 hours. Fasting plasma glucose results between 100 to 125 mg/dL indicate increased risk for diabetes (prediabetes). Fasting plasma glucose results greater than or equal to 126 mg/dL meet the criteria for diagnosis of diabetes. In the absence of unequivocal hyperglycemia, results should be confirmed by repeat testing. In a patient with classic symptoms of hyperglycemia or hyperglycemic crisis, random plasma glucose results greater than or equal to 200 mg/dL meet the criteria for diagnosis of diabetes. Reference: Standards of Medical Care in Diabetes 2016, [place] [employer]. Diabetes Care. 2016.39(Suppl 1). Performed By: #### 2 4323-8, 2531-0 #### [id number] [address] [place] [address] [place] Potassium [Moles/Vol] 3.9 mmol/L Normal 3.7-5.1 [facility] Comment on above: Order Comment: Speci men Type: BLOOD SPECIMEN Ordering Facility: [facility] Address: [address] [place] [address] Performed By: #### 2 4323-8, 2531-0 #### [facility] [id number] [address] [place] [address] [place] Protein [Mass/Vol] 6.3 g/dL Normal 6.3-8.0 [facility] Comment on above: Order Comment: Kishai men Type: BLOOD SPECIMEN Ordering Facility: [facility] Address: [address] [place] [address] Performed By: #### 2 4323-8, 2532-0 #### [facility] CLIA [id number] [address] [place] [address] [place] Sodium [Moles/Vol] 138 mmol/L Normal 136-144 [facility] Comment on above: Order Comment: Speci men Type: BLOOD SPECIMEN Ordering Facility: [facility] Address: [address] [place] [address] Performed By: #### 2 4323-8, 2532-0 #### [facility] CLIA [id number] [address] [place] [address] [place] Urea nitrogen [Mass/Vol] 13 mg/dL Normal 9-[address] [facility] Comment on above: Order Comment: Speci men Type: BLOOD SPECIMEN Ordering Facility: [facility] Address: [address] [place] [address] Performed By: #### 2 4323-8, 2531-0 #### [facility] CLIA [id number] [address] [place] [address] OF URI IMMUNOFIXATION SCREEN, SERUM on 10-31-2024 INTERPRETATION (MPA) Normal [facility] Comment on above: Order Comment: Speci men Type: BLOOD SPECIMEN Ordering Facility: [facility] Address: [address] [place] [address] Result Comment: Antonette on of restricted mobility in IgM anastacia without matching region in light chain lanes, consistent with an IgM containing monoclonal gammopathy. The absence of a visible light chain could be due to lack of analytical sensitivity or could indicate that the patient has heavy chain disease, a rare form of monoclonal gammopathy. Suggest urine monoclonal protein analysis and/or serum free light chain measurement to further evaluate for a possible monoclonal gammopathy. Atypical restricted bands are present in the IgG and kappa regions. Consistent with IgG kappa monoclonal gammopathy. Performed By: #### 2 532-0, 18483-3 #### [facility] CLIA [id number] [address] [place] [address] [place] MPA RESULT M protein is present. Abnormal No M p rotein is identified. [facility] Comment on above: Order Comment: Speci men Type: BLOOD SPECIMEN Ordering Facility: [facility] Address: [address] [place] [address] Performed By: #### 2 532-0, 44299-8 #### [facility] CLIA [id number] [address] [place] [address] OF URI STAFF REVIEW (MPA) Reviewed by David York MD, Ph.D ([id number]) Normal [facility] Comment on above: Order Comment: Speci men Type: BLOOD SPECIMEN Ordering Facility: [facility] Address: [address] [place] [address] Performed By: #### 2 532-0, 08603-9 #### [facility] CLIA [id number] [address] [place] [address] [place] IMMUNOGLOBULINS,IGG,IGA,IGMo n 10-31-2024 IgA [Mass/Vol] 86 mg/dL Normal 70-[address] [facility] Comment on above: Order Comment: Speci men Type: BLOOD SPECIMEN Ordering Facility: [facility] Address: [address] [place] [address] Performed By: #### 2 4323-8, 2531-0 #### [facility] CLIA [id number] [address] [place] [address] [place] IgG [Mass/Vol] 657 mg/dL Low 700-[address] [facility] Comment on above: Order Comment: Speci men Type: BLOOD SPECIMEN Ordering Facility: [facility] Address: [address] [place] [address] Performed By: #### 2 4323-8, 2531-0 #### [facility] CLIA [id number] [address] [place] [address] [place] IgM [Mass/Vol] 210 mg/dL Normal 40-[address] [facility] Comment on above: Order Comment: Speci men Type: BLOOD SPECIMEN Ordering Facility: [facility] Address: [address] [place] [address] Performed By: #### 2 4323-8, 2531-0 #### [facility] CLIA [id number] [address] [place] [address] [place] KAPPA/DOTSON,FREE,SERon 2023 Immunoglobulin light chains.kappa.free (S) [Mass/Vol] 21.5 mg/L High 3.3-19.[address] [facility] Comment on above: Order Comment: Speci men Type: BLOOD SPECIMEN Ordering Facility: [facility] Address: [address] [place] [address] Result Comment: Rare ly, increased serum free light chains levels may not be detected or accurately quantified due to prozone phenomenon or in high viscosity samples using this immunoturbidimetric assay. Correlation with other laboratory results and clinical findings is recommended. The [place] Free Light Chain was performed using the Binding Site Optilite immunoturbidimetric method. Result obtained with different assay methods or kits cannot be used interchangeably. Performed By: #### 2 4323-8, 0 #### [facility] CLIA [id number] [address] [place] [address] [place] Immunoglobulin light chains.kappa/Immunoglo bulin light chains.lambda (S) [Mass ratio] 1.67 High 0.26-1.[address] [facility] Comment on above: Order Comment: Speci men Type: BLOOD SPECIMEN Ordering Facility: [facility] Address: [address] [place] [address] Performed By: #### 2 4323-8, 0 #### [facility] [id number] [address] [place] [address] [place] Immunoglobulin light chains.lambda.free [Mass/Vol] 12.9 mg/L Normal 5.7-26.[address] [facility] Comment on above: Order Comment: Speci men Type: BLOOD SPECIMEN Ordering Facility: [facility] Address: [address] [place] [address] Result Comment: Rare ly, increased serum free light chains levels may not be detected or accurately quantified due to prozone phenomenon or in high viscosity samples using this immunoturbidimetric assay. Correlation with other laboratory results and clinical findings is recommended. The [place] Free Light Chain was performed using the Binding Site Optilite immunoturbidimetric method. Result obtained with different assay methods or kits cannot be used interchangeably. Performed By: #### 2 4323-8, 2531-0 #### [facility] CLIA [id number] [address] [place] [address] [place] LDH SerPl-cCncon 10-31-2024 LDH [Catalytic activity/Vol] 207 U/L Normal 135-[address] [facility] Comment on above: Order Comment: Karan dent Type: BLOOD SPECIMEN Ordering Facility: [facility] Address: [address] [place] [address] Result Comment: Hemo lysis present. The origin of the hemolysis, in vitro versus an in vivo hemolytic process, cannot be distinguished via this assay alone. In vitro hemolysis may lead to non-physiological (spurious) elevation in lactate dehydrogenase (LDH) results. The result should be interpreted in context of the clinical setting and other test results. Suggest reorder as clinically indicated. Performed By: #### 2 4323-8, 2531-0 #### [facility] CLIA [id number] [address] [place] [address] [place] MONOCLONAL PROT UR W/INTERPo n 10-31-2024 STAFF REVIEW ([facility]) Reviewed by David York MD, Ph.D ([id number]) Normal [facility] Comment on above: Order Comment: Speci men Type: BLOOD SPECIMEN Ordering Facility: [facility] Address: [address] [place] [address] Performed By: #### 2 532-0, 91946-0 #### [facility] CLIA [id number] [address] [place] [address] [place] UMPA RESULT No M protein is identified. Normal No M protein is identified. [facility] Comment on above: Order Comment: Speci men Type: BLOOD SPECIMEN Ordering Facility: [facility] Address: [address] [place] [address] Performed By: #### 2 532-0, 22157-1 #### [facility] CLIA [id number] [address] [place] [address] [place] PROTEIN ELECTROPHORESIS SERU M (P)on 10-31-2024 Albumin [Mass/Vol] 3.74 g/dL Normal 3.43-5.41 [facility] Comment on above: Order Comment: Speci men Type: BLOOD SPECIMEN Ordering Facility: [facility] Address: [address] [place] [address] Performed By: #### L [id number] #### [facility] CLIA [id number] [address] [place] [address] [place] Alpha 1 globulin Elph [Mass/Vol] 0.26 g/dL Normal 0.18-0.[address] [facility] Comment on above: Order Comment: Speci men Type: BLOOD SPECIMEN Ordering Facility: [facility] Address: [address] [place] [address] Performed By: #### L [id number] #### [facility] CLIA [id number] [address] [place] [address] [place] Alpha 2 globulin Elph [Mass/Vol] 0.57 g/dL Normal 0.42-0.[address] [facility] Comment on above: Order Comment: Speci men Type: BLOOD SPECIMEN Ordering Facility: [facility] Address: [address] [place] [address] Performed By: #### L [id number] #### [facility] CLIA [id number] [address] [place] [address] [place] Beta globulin Elph [Mass/Vol] 0.61 g/dL Normal 0.61-1.[address] [facility] Comment on above: Order Comment: Speci men Type: BLOOD SPECIMEN Ordering Facility: [facility] Address: [address] [place] [address] Performed By: #### L [id number] #### [facility] CLIA [id number] [address] [place] [address] [place] Gamma globulin Elph [Mass/Vol] 0.62 g/dL Normal 0.53-1.[address] [facility] Comment on above: Order Comment: Speci men Type: BLOOD SPECIMEN Ordering Facility: [facility] Address: [address] [place] [address] Performed By: #### L [id number] #### [facility] CLIA [id number] [address] [place] [address] [place] INTERPRETATION COMMENT FOR PROTEIN ELECTROPHORESIS See separate immunofixation report for characterization of monoclonal gammopathy. Normal [facility] Comment on above: Order Comment: Speci men Type: BLOOD SPECIMEN Ordering Facility: [facility] Address: [address] [place] [address] Performed By: #### L [id number] #### [facility] CLIA [id number] [address] [place] [address] STATES OF [place] M SPIKE CONCENTRATION 2 0.14 g/dL High <=0.[address] [facility] Comment on above: Order Comment: Speci men Type: BLOOD SPECIMEN Ordering Facility: [facility] Address: [address] [place] [address] Performed By: #### L [id number] #### [facility] CLIA [id number] [address] [place] [address] [place] M-PROTEIN LOCATION Gamma Fraction [address] [facility] Comment on above: Order Comment: Speci men Type: BLOOD SPECIMEN Ordering Facility: [facility] Address: [address] [place] [address] Performed By: #### L [id number] #### [facility] CLIA [id number] [address] [place] [address] [place] M-PROTEIN LOCATION 2 Gamma Fraction [address] [facility] Comment on above: Order Comment: Speci men Type: BLOOD SPECIMEN Ordering Facility: [facility] Address: [address] [place] [address] Performed By: #### L [id number] #### [facility] CLIA [id number] [address] [place] [address] [place] Protein Fractions [Interp] An M protein is identified on protein electrophoresis. Abnormal No definitive M protein is identified on protein electrophores is. [facility] Comment on above: Order Comment: Speci men Type: BLOOD SPECIMEN Ordering Facility: [facility] Address: [address] [place] [address] Performed By: #### L [id number] #### [facility] CLIA [id number] [address] [place] [address] [place] Protein.monoclonal Elph [Mass/Vol] 0.21 g/dL High <=0.[address] [facility] Comment on above: Order Comment: Speci men Type: BLOOD SPECIMEN Ordering Facility: [facility] Address: [address] [place] [address] Performed By: #### L [id number] #### [facility] CLIA [id number] [address] [place] [address] [place] SPE STAFF REVIEW Reviewed by Katherine Resendiz MD Normal [facility] Comment on above: Order Comment: Speci men Type: BLOOD SPECIMEN Ordering Facility: [facility] Address: [address] [place] [address] Performed By: #### L [id number] #### [facility] CLIA [id number] [address] [place] [address] [place] Prot SerPl-mCncon 10-31-2024 Protein [Mass/Vol] 5.8 g/dL Low 6.3-8.0 [facility] Comment on above: Order Comment: Speci men Type: BLOOD SPECIMEN Ordering Facility: [facility] Address: [address] [place], [place] [address] [place] [id number] Performed By: #### 2 4323-8, 253-0 #### [facility] CLIA [id number] [address] [place] [address] [place] Prot Ur-mCncon 10-31-2024 Protein (U) [Mass/Vol] 7 mg/dL Normal 0-20 [facility] Comment on above: Order Comment: Speci men Type: BLOOD SPECIMEN Ordering Facility: [facility] Address: [address] [place] [address] [place] [address] Performed By: #### 2 532-0, 50845-2 #### [facility] CLIA [id number] [address] [place] [address] [place] SERUM VISCOSITYon 10-31-2024 VISCOSITY, SERUM 1.07 cP Normal <=1.50 [facility] Comment on above: Order Comment: Speci men Type: BLOOD SPECIMEN Ordering Facility: [facility] Address: [address] [place] [address] Result Comment: INTE RPRETIVE INFORMATION: Viscosity, Serum Increased viscosity is associated with disorders such as monoclonal gammopathy, macroglobulinemia, and multiple myeloma. Significantly elevated viscosity (>3.0 cP) is associated with clinical symptoms of hyperviscosity syndrome. This test was developed and its performance characteristics determined by [facility]. It has not been cleared or approved by the [place] Food and Drug Administration. This test was performed in a CLIA certified laboratory and is intended for clinical purposes. Performed By: [facility] [address] [place] [address] [place] Comber: Barrett Pak MD, PhD CLIA Number: [id number] Performed By: #### 2 4323-8, 253-0 #### [facility] CLIA [id number] [address] [place] [address] [place] URINE PROTEIN ELECTROPHORESI S RANDOM (P)on 10-31-2024 Albumin Elph (U) [Mass fraction] 31.00 % Normal [facility] Comment on above: Order Comment: Speci men Type: URINE SPECIMEN Ordering Facility: [facility] Address: [address] [id number] Performed By: #### L [id number] #### [facility] CLIA [id number] [address] [place], [place] [id number] [place] Alpha 1 globulin Elph (U) [Mass fraction] 7.83 % Normal [facility] Comment on above: Order Comment: Speci men Type: URINE SPECIMEN Ordering Facility: [facility] Address: [address] [place], [place] [address] Performed By: #### L [id number] #### [facility] CLIA [id number] [address] [place] [address] [place] Alpha 2 globulin Elph (U) [Mass fraction] 18.16 % Normal [facility] Comment on above: Order Comment: Speci men Type: URINE SPECIMEN Ordering Facility: [facility] Address: [address] [place] [address] Performed By: #### L [id number] #### [facility] CLIA [id number] [address] [place] [address] [place] Beta globulin Elph (U) [Mass fraction] 25.77 % Normal [facility] Comment on above: Order Comment: Speci men Type: URINE SPECIMEN Ordering Facility: [facility] Address: [address] [place], [place] [address] Performed By: #### L [id number] #### [facility] CLIA [id number] [address] [place] [address] [place] Gamma globulin Elph (U) [Mass fraction] 17.24 % Normal [facility] Comment on above: Order Comment: Speci men Type: URINE SPECIMEN Ordering Facility: [facility] Address: [address] [place], [place] [address] Performed By: #### L [id number] #### [facility] CLIA [id number] [address] [place] [address] [place] Protein Fractions Elph Alfonso (U) [Interp] No definitive M protein is identified on protein electrophoresis. Normal No definitive M protein is identified on protein electrophores is. [facility] Comment on above: Order Comment: Speci men Type: URINE SPECIMEN Ordering Facility: [facility] Address: [address] [place] [address] Performed By: #### L [id number] #### [facility] CLIA [id number] [address] [place] [address] OF URI STAFF REVIEW (URINE ELECTRO) Reviewed by David York MD, Ph.D ([id number]) Normal [facility] Comment on above: Order Comment: Speci men Type: URINE SPECIMEN Ordering Facility: [facility] Address: [address] [place] [address] Performed By: #### L [id number] #### [facility] CLIA [id number] [address] [place] [address] [place] Orthopedic Visit Reporton Orthopedic Visit Report [facility] [address] [place] [address] OFFICE VISIT Date of Service: 10/17/24 MR#: [id number] Acct: [id number] Name: NIKO HUITRON Rep #: [id number] : 1960 Provider: Dr. Roly ochoa DO Age/Sex: 64/M Location: [facility] Status: Signed Intake Vital Signs 07/20/24 07:15 09/17/24 11:11 Height 6 ft 1 in 6 ft 1 in Intake Visit Reasons: right knee Chief Complaint: poison kirstie Allergies No Known Allergies Allergy (Verified 10/12/24 11:06) Have you fallen in the past year?: No [facility] Medical History (Updated 10/17/24 @ 14:[address] Roly Chi DO) URI (upper respiratory infection) Carotid stenosis Hematoma of neck Wears glasses Alcohol use Bipolar disorder High cholesterol Seizures Non-smoker History of echocardiogram History of heart attack Hypertension Cardiology follow-up encounter History of stress test Osteoarthritis of left knee Carotid stenosis, bilateral Shortness of breath Bipolar 1 disorder Essential hypertension Pharyngitis Acute bronchitis Chest pain Shoulder pain Arthritis Surgical History (Updated 10/12/24 @ 11:12 by Iris Contreras) History of carotid endarterectomy History of right-sided carotid endarterectomy Hx of transurethral resection of prostate Hx of total knee arthroplasty History of colonoscopy ( 10/2022) History of bursectomy History of arthroscopy of knee History of carpal tunnel release Family History Father Myocardial infarction Hypertension Alcoholism Mother Cancer Diabetes Brother Heart disease Hypertension Alcoholism Cancer prostate Grandfather Myocardial infarction CVA (cerebral vascular accident) Carotid arterial disease Social History Smoking Status: Never smoker alcohol intake: current alcohol intake frequency: 0-2 drinks per day Alcohol type: beer substance use type: does not use HPI right knee Details: This documentation accurately reflects the service provided and the decisions made by me, Dr. Roly Chi, DO 10/17/24 0822. Part of today???s visit was documented by [ ], acting as scribe. NIKO HUITRON is a 64 year old M here today for iovera procedure for his right knee Ortho Exam General General: Yes no acute distress Neurologic: Yes alert and Yes oriented x3 Psychologic: Yes reasonable and appropriate Right Knee Skin/Wound: Yes CDI, No erythema, No ecchymosis and Yes swelling (lower leg) Knee ROM: Yes ROM-Extension -20 to 0 and Yes ROM-Flexion 0-140 (108) Examination: Yes Med jt line tenderness, Yes Lat jt line tenderness and Yes TTP Pes Anserine Stability: NML: Anterior Drawer, NML: Posterior Drawer, NML: Valgus 0, NML: Valgus 30, NML: Varus 0 and NML: Varus 30 KNEE: swelling in both legs thickened skin over the anterior knee from years of kneeling no joint effusion pain with full EXT FLEX 108 with some stiffness Right Elbow Skin/Wound: Yes CDI, No eccymosis, No erythema and No Swelling ROM: Yes Flexion 0-140, Extension 0, Supination 0-90 and Pronation 0-80 Test: Yes TTP Lateral Epicondyle and Yes Pain w/ resist wrist ext Office Procedures Iovera Procedure Details:: Preoperative diagnosis :chronic knee pain Postoperative diagnosis: Same Procedure: Cryotherapy with Iovera device to anterior femoral cutaneous nerve and 2 branches of the infrapatellar saphenous nerve. Three nerves in total. Description of procedure: Patient was brought back to the procedure room the operative extremity was identified by both patient and physician. Entire extremity was cleaned with alcohol. The superior inferior and medial lateral borders of the patella were marked followed by the center of the patella. We then measured 12 cm proximal to this and with the knee in flexion marked the medial and lateral edges of the patella continuing proximally to give us our proximal treatment line.This was our treatment line for the anterior femoral cutaneous nerve. A second treatment line was made 5 cm medial to the inferior pole of the patella and 5 cm distally. The treatment lines were then prepped with Betadine and 1 last time with alcohol. Lidocaine 1% with epi was injected subcutaneously along the treatment lines. Using the Iovera device on the marked treatment lines device was activated allowing it to freeze and defrost with 1 minute cycles. Once all 3 nerve branches were treated across the 2 treatment lines patient was cleaned and a light dressing with 4 x 4 and Kirk wrap was applied. Patient tolerated the procedure without complication. Supplemental Info 06/10/2023 MRI right knee: Moderate cartilage wear medial femoral compartment. Mild MCL sprain. Complex tear posterior (more content not included)... Normal [facility] Fructosamineon 10-14-2024 FRUCTOSAMINE 247 umol/L Normal 0-285 [facility] Comment on above: Result Comment: Publ ished reference interval for apparently healthy subjects between age 20 and 60 is 205 - 285 umol/L and in a poorly controlled diabetic population is 228 - 563 umol/L with a mean of 396 umol/L. Performed at: - [facility], [place], [place] [id number] Hot Shot: Joey Matos PhD, Phone: [phone] Performed By: #### M 100.353, L300.4310, L3400.0100, L300.3900, L501.1264 ####[facility] [address] [place], [address] MRSA/SAID NASAL SCREENon MRSA+SAID SCRN Reason for Exam: pre op MRSA MRSA Negative S. AUREUS S. aureus Negative Normal [facility] Comment on above: Performed By: #### M 100.651, L300.4310, L3400.0100, L300.3900, L501.9985 ####[facility] [address] [place], [address] 12 Lead EKGon 10-13-2024 12 Lead EKG [facility] [address] [place] [address] 12 Lead EKG 10/13/24 0800 MR#: [id number] Acct: [id number] Name: NIKO HUITRON Rep #: [id number] : 1960 64 From: Africa Garrido MD Attending Dr: Dr. Roly Chi DO Status: RI E SDC Ordering Dr: Roly Chi DO Date: 10/13/24 Location: [facility] Sex: M C Admitted: Test Reason : PRE OP Blood Pressure : */* mmHG Vent. Rate : 54 BPM Atrial Rate : 54 BPM P-R Int : 172 ms QRS Dur : 94 ms QT Int : 424 ms P-R-T Axes : 43 56 20 degrees QTcB Int : 402 ms Sinus bradycardia Possible Inferior infarct , age undetermined Abnormal ECG Confirmed by AFRICA GARRIDO ([id number]), assignment desk editor KOFI [place]NA[place] ([id number]) on 10/14/2024 12:00:55 PM Referred By: Roly Chi Confirmed By: AFRICA GARRIDO 10/14/24 1200 Date Africa Garrido MD CC: Dr. Silverio Salmeron MD; Dr. Roly Chi DO Signed Normal [facility] Hemoglobin A1con 10-13-2024 HbA1c (Bld) [Mass fraction] 7.2 % High 3.8-5.6 [facility] Comment on above: Order Comment: TO EA RLY TO DO THE PSAT-SWRIG 10-13-24 SURGERY 11-01-24 Result Comment: Norm al < 5.7 % Prediabetic 5.7 - 6.4 % Diabetic >or= 6.5 % Please note range changes. Performed By: #### M 100.651, L300.4310, L3400.0100, L300.3900, L501.9985 ####[facility] [address] [place], [address] Magnesiumon 10-13-2024 Magnesium [Mass/Vol] 1.9 mg/dL Normal 1.6-2.6 [facility] Comment on above: Performed By: #### L 501.5200 ####[facility] [address] [place], [address] Partial Thromboplast Timeon 10-13-2024 aPTT Coag (Bld) [Time] 25.9 s Normal 24.1-36.2 [facility] Comment on above: Performed By: #### M 100.651, L300.4310, L3400.0100, L300.3900, L501.9985 #### [facility] [address] [place], [address] Prothrombin Time w/INRon INR Coag (PPP) [Relative time] 1.0 {INR} Normal [facility] Comment on above: Performed By: #### M 100.651, L300.4310, L3400.0100, L300.3900, L501.9985 #### [facility] [address] [place], [address] PT Coag (PPP) [Time] 13.2 s Normal 11.7-14.9 [facility] Comment on above: Performed By: #### M 100.651, L300.4310, L3400.0100, L300.3900, L501.9985 #### [facility] [address] [place], [place], [address] Extremity Lower without Cont raon 10-12-2024 Extremity Lower without Contra [facility] Imaging Services [address] [place], [place] [address] Extremity Lower without Contra MR#: [id number] Acct: [id number] Name: NIKO HUITRON Rep #: [id number] : 1960 M 64 From: Lon connor MD PCP: Dr. Silverio Salmeron MD Status: REG CLI Study: Extremity Lower without Contra Date of Exam: 12/12/23 Exam# [id number] Ordering Dr: [place] [id number] STUDY: CT RIGHTLOWER EXTREMITY WITHOUT CONTRAST REASON FOR EXAM: Male, 64 years old. right knee. [facility] PRE-OP RADIATION DOSAGE (If Supplied By Facility): CTDIvol = ( 18.76 ) mGy, DLP = ( 1369.52 ) mGycm TECHNIQUE: Thin section transaxial imaging of the ankle was obtained, with sagittal and coronal reconstructed images. Individualized dose optimization techniques were used for this CT. COMPARISON: X-ray of the right knee dated June 08, 2024 Hip findings: Normal femoral head, neck, intertrochanteric region and visualized proximal femur. Normal acetabulum. Normal hip joint. Normal visualized superior and inferior pubic rami and ischial tuberosities. Normal hip joint without articular joint space narrowing. Normal acetabulum. Normal labrum. Normal femoral head. Normal femoral neck and intratrochanteric region. Normal gluteus minimus, medius and iliopsoas tendons and distal insertions. Normal superior and inferior pubic rami. Normal pubic symphysis. Normal ischial tuberosity. Normal origin of the hamstring tendons. Normal visualized iliac wing, sacroiliac joint, and sacral ala. Normal visualized soft tissue structures of the pelvis. Knee findings: There is moderate narrowing in the medial compartment with near mnyo-rm-txgq contact at the periphery were significant narrowing is present. Mild subchondral cystic changes are also present at the periphery of the medial tibial plateau. The lateral compartment space is mildly narrowed. The patellofemoral space is preserved. A small knee joint effusion is present. No fracture is present. No demonstrated avascular necrosis or osteochondral defect. Atherosclerotic calcifications are present in the calf and distal thigh. Normal proximal tibiofibular articulation. The quadriceps tendon is grossly normal. The patellar tendon is grossly normal. Normal Hoffa''s fat pad. The soft tissues are unremarkable. Ankle findings: Normal visualized distal tibia and fibula. Normal tibiotalar articulation and talar dome. Normal talus, calcaneus, navicular and cuboid tarsal bones. Normal subtalar, talonavicular and calcaneocuboid articulations. Normal navicular-cuneiform, cuneiform tarsal bones and intercuneiform articulations. Normal tarsometatarsal articulations and visualized metatarsi. Mild diffuse subcutaneous edema is present around the ankle and plantar aspect of the foot. Small plantar calcaneal spur also noted. CT/Extremity Lower without Contra IMPRESSION: 1. There is moderate narrowing in the medial compartment with near tkgh-uv-kpjp contact at the periphery were significant narrowing is present. Mild subchondral cystic changes are also present at the periphery of the medial tibial plateau. The lateral compartment space is mildly narrowed. The patellofemoral space is preserved. A small knee joint effusion is present. Electronically Signed: Lon Meza MD at 13:30 EST , CC: Dr. Silverio Salmeron MD; Dr. Roly Chi DO [employer]S Representative: Signed Normal [facility] CBC W/Diff, Automatedon 09-23 Absolute Lymph 2.80 X10 3/uL Normal 0.83-4.51 [facility] Comment on above: Order Comment: Order Date: 08/19/24Order Info: 0184-1 - CBCD Performed By: #### L 500.4050, L500.4100, L502.0250, L100.0100, L501.9985 ####[facility] [address] [place], [address] Absolute Neut 7.9 X10 3/uL High 2.0-7.7 [facility] Comment on above: Order Comment: Order Date: 08/19/24Order Info: 018- - CBCD Performed By: #### L 500.4050, L500.4100, L502.0250, L100.0100, L501.9985 ####[facility] [address] [place], [address] Basophils/100 WBC (Bld) 1.0 % Normal 0-1 [facility] Comment on above: Order Comment: Order Date: 08/19/24Order Info: 018- - CBCD Performed By: #### L 500.4050, L500.4100, L502.0250, L100.0100, L501.9985 ####[facility] [address] [place], [address] Eosinophils/100 WBC (Bld) 1.6 % Normal 0-5 [facility] Comment on above: Order Comment: Order Date: 08/19/24Order Info: 018- - CBCD Performed By: #### L 500.4050, L500.4100, L502.0250, L100.0100, L501.9985 ####[facility] [address] [place], [address] Erythrocyte distribution width (RBC) [Ratio] 13.9 % Normal 11.6-14.6 [facility] Comment on above: Order Comment: Order Date: 08/19/24Order Info: 018- - CBCD Performed By: #### L 500.4050, L500.4100, L502.0250, L100.0100, L501.9985 ####[facility] [address] [place], [address] Hematocrit (Bld) [Volume fraction] 39.4 % Low 40-54 [facility] Comment on above: Order Comment: Order Date: 08/19/24Order Info: 0184-1 - CBCD Performed By: #### L 500.4050, L500.4100, L502.0250, L100.0100, L501.9985 ####[facility] [address] [place], [address] Hemoglobin (Bld) [Mass/Vol] 13.2 g/dL Normal 13.0-16.5 [facility] Comment on above: Order Comment: Order Date: 08/19/24Order Info: 0184-1 - CBCD Performed By: #### L 500.4050, L500.4100, L502.0250, L100.0100, L501.9985 ####[facility] [address] [place], [address] IG% 0.500 Normal 0.0-0.9 [facility] Comment on above: Order Comment: Order Date: 08/19/24Order Info: 0184-1 - CBCD Result Comment: IG% - Immature Granulocytes (promyelocytes, myelocytes and metamyelocytes) > 1% indicates that a LEFT SHIFT is Present. Performed By: #### L 500.4050, L500.4100, L502.0250, L100.0100, L501.9985 ####[facility] [address] [place], [address] Lymphocytes/100 WBC (Bld) 22.9 % Normal 19-41 [facility] Comment on above: Order Comment: Order Date: 08/19/24Order Info: 0184-1 - CBCD Performed By: #### L 500.4050, L500.4100, L502.0250, L100.0100, L501.9985 ####[facility] [address] [place], [address] MCH (RBC) [Entitic mass] 30.0 pg Normal 27.0-32.0 [facility] Comment on above: Order Comment: Order Date: 08/19/24Order Info: 018-1 - CBCD Performed By: #### L 500.4050, L500.4100, L502.0250, L100.0100, L501.9985 ####[facility] [address] [place], [address] MCHC (RBC) [Mass/Vol] 33.5 g/dL Normal 32-36 [facility] Comment on above: Order Comment: Order Date: 08/19/24Order Info: 018- - CBCD Performed By: #### L 500.4050, L500.4100, L502.0250, L100.0100, L501.9985 ####[facility] [address] [place], [address] MCV (RBC) [Entitic vol] 89.5 fL Normal 80-94 [facility] Comment on above: Order Comment: Order Date: 08/19/24Order Info: 018- - CBCD Performed By: #### L 500.4050, L500.4100, L502.0250, L100.0100, L501.9985 ####[facility] [address] [place], [address] Monocytes/100 WBC (Bld) 9.4 % Normal 0-10 [facility] Comment on above: Order Comment: Order Date: 08/19/24Order Info: 0184-1 - CBCD Performed By: #### L 500.4050, L500.4100, L502.0250, L100.0100, L501.9985 ####[facility] [address] [place], [address] Neutrophils/100 WBC (Bld) 64.6 % Normal 47-70 [facility] Comment on above: Order Comment: Order Date: 08/19/24Order Info: 0184-1 - CBCD Performed By: #### L 500.4050, L500.4100, L502.0250, L100.0100, L501.9985 ####[facility] [address] [place], [address] Nucleated RBC (Bld) [#/Vol] 0 10*3/uL Normal 0-5 [facility] Comment on above: Order Comment: Order Date: 08/19/24Order Info: 018- - CBCD Performed By: #### L 500.4050, L500.4100, L502.0250, L100.0100, L501.9985 ####[facility] [address] [place], [address] Platelet mean volume (Bld) [Entitic vol] 10.2 fL Normal 6.2-12.0 [facility] Comment on above: Order Comment: Order Date: 08/19/24Order Info: 018- - CBCD Performed By: #### L 500.4050, L500.4100, L502.0250, L100.0100, L501.9985 ####[facility] [address] [place], [address] Platelets (Bld) [#/Vol] 273 10*3/uL Normal 150-450 [facility] Comment on above: Order Comment: Order Date: 08/19/24Order Info: 018- - CBCD Performed By: #### L 500.4050, L500.4100, L502.0250, L100.0100, L501.9985 ####[facility] [address] [place], [address] RBC (Bld) [#/Vol] 4.40 10*6/uL Low 4.6-6.2 [facility] Comment on above: Order Comment: Order Date: 08/19/24Order Info: [id number] - CBCD Performed By: #### L 500.4050, L500.4100, L502.0250, L100.0100, L501.9985 ####[facility] [address] [place], [address] RDW SD 45.1 fl High 35.1-43.9 [facility] Comment on above: Order Comment: Order Date: 08/19/24Order Info: [id number] - CBCD Performed By: #### L 500.4050, L500.4100, L502.0250, L100.0100, L501.9985 ####[facility] [address] [place], [address] WBC (Bld) [#/Vol] 12.2 10*3/uL High 4.4-11.0 [facility] Comment on above: Order Comment: Order Date: 08/19/24Order Info: [id number] - CBCD Performed By: #### L 500.4050, L500.4100, L502.0250, L100.0100, L501.9985 ####[facility] [address] [place], [address] Comprehensive Metabolic Prof akon 10-03-2024 Albumin [Mass/Vol] 3.5 g/dL Normal 3.2-5.0 [facility] Comment on above: Order Comment: Order Date: 08/19/24Order Info: [id number] - CMPOrder Info: [id number] - LIPID Performed By: #### L 500.4050, L500.4100, L502.0250, L100.0100, L501.9985 ####[facility] [address] [place], [address] Albumin/Globulin [Mass ratio] 1.2 {ratio} Normal 0.9-2.4 [facility] Comment on above: Order Comment: Order Date: 08/19/24Order Info: [id number] - CMPOrder Info: [id number] - LIPID Performed By: #### L 500.4050, L500.4100, L502.0250, L100.0100, L501.9985 ####[facility] [address] [place], [address] ALK P 55 U/L Normal 45-117 [facility] Comment on above: Order Comment: Order Date: 08/19/24Order Info: [id number] - CMPOrder Info: [id number] - LIPID Performed By: #### L 500.4050, L500.4100, L502.0250, L100.0100, L501.9985 ####[facility] [address] [place], [address] ALT [Catalytic activity/Vol] 38 U/L Normal 16-61 [facility] Comment on above: Order Comment: Order Date: 08/19/24Order Info: [id number] - CMPOrder Info: [id number] - LIPID Performed By: #### L 500.4050, L500.4100, L502.0250, L100.0100, L501.9985 ####[facility] [address] [place], [address] AST [Catalytic activity/Vol] 19 U/L Normal 15-37 [facility] Comment on above: Order Comment: Order Date: 08/19/24Order Info: [id number] - CMPOrder Info: [id number] - LIPID Performed By: #### L 500.4050, L500.4100, L502.0250, L100.0100, L501.9985 ####[facility] [address] [place], [address] Bilirubin [Mass/Vol] 0.50 mg/dL Normal 0.20-1.00 [facility] Comment on above: Order Comment: Order Date: 08/19/24Order Info: 0786- - CMPOrder Info: [id number] - LIPID Result Comment: For patients on eltrombopag therapy, use of Dimension [place] TBIL is not recommended. Performed By: #### L 500.4050, L500.4100, L502.0250, L100.0100, L501.9985 ####[facility] [address] [place], [address] BUN/CRE 13.8 RATIO Normal 10-20 [facility] Comment on above: Order Comment: Order Date: 08/19/24Order Info: [id number] - CMPOrder Info: [id number] - LIPID Performed By: #### L 500.4050, L500.4100, L502.0250, L100.0100, L501.9985 ####[facility] [address] [place], [address] CA,Total 9.0 mg/dL Normal 8.5-10.1 [facility] Comment on above: Order Comment: Order Date: 08/19/24Order Info: [id number] - CMPOrder Info: [id number] - LIPID Performed By: #### L 500.4050, L500.4100, L502.0250, L100.0100, L501.9985 ####[facility] [address] [place], [address] Chloride [Moles/Vol] 104 mmol/L Normal 98-107 [facility] Comment on above: Order Comment: Order Date: 08/19/24Order Info: [id number] - CMPOrder Info: [id number] - LIPID Performed By: #### L 500.4050, L500.4100, L502.0250, L100.0100, L501.9985 ####[facility] [address] [place], [address] CO2 [Moles/Vol] 29.0 mmol/L Normal 21.0-32.0 [facility] Comment on above: Order Comment: Order Date: 08/19/24Order Info: [id number] - CMPOrder Info: [id number] - LIPID Performed By: #### L 500.4050, L500.4100, L502.0250, L100.0100, L501.9985 ####[facility] [address] [place], [address] Creatinine [Mass/Vol] 0.87 mg/dL Normal 0.70-1.30 [facility] Comment on above: Order Comment: Order Date: 08/19/24Order Info: [id number] - CMPOrder Info: [id number] - LIPID Result Comment: The validity of the calculated GFR GFRAA in patients over 70 years has not been determined. Clinical correlation is essential. Performed By: #### L 500.4050, L500.4100, L502.0250, L100.0100, L501.9985 ####[facility] [address] [place], [address] EST GFR - AA 113 mL/min Normal >60 [facility] Comment on above: Order Comment: Order Date: 08/19/24Order Info: 07 - CMPOrder Info: [id number] - LIPID Result Comment: Afri can Sudanese GFR Calc Performed By: #### L 500.4050, L500.4100, L502.0250, L100.0100, L501.9985 ####[facility] [address] [place], [address] GAP 6 Normal 5-15 [facility] Comment on above: Order Comment: Order Date: 08/19/24Order Info: [id number]- - CMPOrder Info: [id number] - LIPID Performed By: #### L 500.4050, L500.4100, L502.0250, L100.0100, L501.9985 ####[facility] [address] [place], [address] GFR/1.73 sq M.predicted among non-blacks MDRD (S/P/Bld) [Vol rate/Area] 93 mL/min/{1.73_m2} Normal >60 [facility] Comment on above: Order Comment: Order Date: 08/19/24Order Info: 07 - CMPOrder Info: [id number] - LIPID Result Comment: Non- GFR Calc Performed By: #### L 500.4050, L500.4100, L502.0250, L100.0100, L501.9985 ####[facility] [address] [place], [address] Globulin (S) [Mass/Vol] 3.0 g/dL Normal 2.2-4.2 [facility] Comment on above: Order Comment: Order Date: 08/19/24Order Info: [id number] - CMPOrder Info: [id number] - LIPID Performed By: #### L 500.4050, L500.4100, L502.0250, L100.0100, L501.9985 ####[facility] [address] [place], [address] Glucose [Mass/Vol] 149 mg/dL High 74-106 [facility] Comment on above: Order Comment: Order Date: 08/19/24Order Info: [id number] - CMPOrder Info: [id number] - LIPID Result Comment: Fast ing Glucose result greater than or equal to 126 mg/dL suggests DIABETES MELLITUS per A.D.A. criteria. Performed By: #### L 500.4050, L500.4100, L502.0250, L100.0100, L501.9985 ####[facility] [address] [place], [address] Potassium [Moles/Vol] 4.0 mmol/L Normal 3.5-5.1 [facility] Comment on above: Order Comment: Order Date: 08/19/24Order Info: [id number] - CMPOrder Info: [id number] - LIPID Performed By: #### L 500.4050, L500.4100, L502.0250, L100.0100, L501.9985 ####[facility] [address] [place], [address] Sodium [Moles/Vol] 138 mmol/L Normal 136-145 [facility] Comment on above: Order Comment: Order Date: 08/19/24Order Info: [id number] - CMPOrder Info: [id number] - LIPID Performed By: #### L 500.4050, L500.4100, L502.0250, L100.0100, L501.9985 ####[facility] [address] [place], [address] T PROT 6.5 g/dL Normal 6.4-8.2 [facility] Comment on above: Order Comment: Order Date: 08/19/24Order Info: [id number] - CMPOrder Info: [id number] - LIPID Performed By: #### L 500.4050, L500.4100, L502.0250, L100.0100, L501.9985 ####[facility] [address] [place], [address] Urea nitrogen [Mass/Vol] 12 mg/dL Normal 7-18 [facility] Comment on above: Order Comment: Order Date: 08/19/24Order Info: [id number] - CMPOrder Info: [id number] - LIPID Performed By: #### L 500.4050, L500.4100, L502.0250, L100.0100, L501.9985 ####[facility] [address] [place], [address] Hemoglobin A1con 10-03-2024 HbA1c (Bld) [Mass fraction] 7.2 % High 3.8-5.6 [facility] Comment on above: Order Comment: Order Date: 08/19/24Order Info: [id number] - A1C Result Comment: Norm al < 5.7 % Prediabetic 5.7 - 6.4 % Diabetic >or= 6.5 % Please note range changes. Performed By: #### L 500.4050, L500.4100, L502.0250, L100.0100, L501.9985 ####[facility] [address] [place], [address] Lipid Profileon 11-11-2024 Cholesterol [Mass/Vol] 104 mg/dL Normal 200 [facility] Comment on above: Order Comment: Order Date: 08/19/24Order Info: [id number] - CMPOrder Info: [id number] - LIPID Result Comment: <200 mg/dL Desirable 200-240 mg/dL Borderline >240 mg/dL High Risk Performed By: #### L 500.4050, L500.4100, L502.0250, L100.0100, L501.9985 ####[facility] [address] [place], [address] Cholesterol in HDL [Mass/Vol] 50 mg/dL Normal [facility] Comment on above: Order Comment: Order Date: 08/19/24Order Info: 07 - CMPOrder Info: [id number] - LIPID Result Comment: The drugs N-Acetylcysteine and Metamizole may falsely depress this assay. Reference Range HDL <40 mg/dL Low HDL Cholesterol HDL >or= 60 mg/dL High HDL Cholesterol Performed By: #### L 500.4050, L500.4100, L502.0250, L100.0100, L501.9985 ####[facility] [address] [place], [address] Cholesterol in LDL [Mass/Vol] 27 mg/dL Normal 0-130 [facility] Comment on above: Order Comment: Order Date: 08/19/24Order Info: [id number]- - CMPOrder Info: [id number] - LIPID Performed By: #### L 500.4050, L500.4100, L502.0250, L100.0100, L501.9985 ####[facility] [address] [place], [address] Cholesterol in VLDL [Mass/Vol] 27 mg/dL Normal 5-40 [facility] Comment on above: Order Comment: Order Date: 08/19/24Order Info: [id number]- - CMPOrder Info: [id number] - LIPID Performed By: #### L 500.4050, L500.4100, L502.0250, L100.0100, L501.9985 ####[facility] [address] [place], [address] Triglyceride [Mass/Vol] 133 mg/dL Normal [facility] Comment on above: Order Comment: Order Date: 08/19/24Order Info: [id number] - CMPOrder Info: [id number] - LIPID Result Comment: The drugs N-Acetylcysteine and Metamizole may falsely depress this assay. Serum Triglycerides Reference Interval Normal <150 mg/dL Borderline high 150 - 199 mg/dL High 200 - 499 mg/dL Very High > or = 500 mg/dL Performed By: #### L 500.4050, L500.4100, L502.0250, L100.0100, L501.9985 ####[facility] [address] [place], [address] Microalb:Creat Ratio,Random URon 10-03-2024 MALB:CRE Normal <30 mg/g CRE [facility] Comment on above: Order Comment: Order Date: 08/19/24Order Info: [id number] - MIACRE Result Comment: UTO Performed By: #### L 500.4050, L500.4100, L502.0250, L100.0100, L501.9985 ####[facility] [address] [place], [address] MICROALBUMIN,UR Normal NO RANGE EST. [facility] Comment on above: Order Comment: Order Date: 08/19/24Order Info: [id number] - MIACRE Result Comment: UTO Performed By: #### L 500.4050, L500.4100, L502.0250, L100.0100, L501.9985 ####[facility] [address] [place], [address] UR CREAT Normal NO RANGE EST. [facility] Comment on above: Order Comment: Order Date: 08/19/24Order Info: [id number] - MIACRE Result Comment: UTO Performed By: #### L 500.4050, L500.4100, L502.0250, L100.0100, L501.9985 ####[facility] [address] [place], [address] Urgent Care Visit Reporton 1 Urgent Care Visit Report [facility] [address], [address] [place], [place] [address] OFFICE VISIT Date of Service: 09/17/24 MR#: [id number] Acct: [id number] Name: NIKO HUITRON Rep #: [id number] : 1960 Provider: LOWELL Cervantes Age/Sex: 64/M Location: [facility] Status: Signed Intake Vital Signs 08/24/24 08:48 09/17/24 11:11 Height 6 ft 1 in 6 ft 1 in Weight: 277 lb 278 lb 6 oz BMI 36.5 36.7 BP 148/76 H 118/74 Blood Pressure Location Rt brachial Position Sitting Respiration 17 Pulse 100 69 Pulse Source Monitor Temp 98.2 F 97.2 F L Temp Source Temporal Oral Pulse Oximetry (%) 94 96 Oxygen Delivery Method room air room air Intake Visit Reasons: POISON KIRSTIE Chief Complaint: poison kirstie Allergies No Known Allergies Allergy (Verified 09/17/24 11:12) Medications ???Medication ???Instructions ???Recorded ???Confirmed ???Type amlodipine 10 mg tablet 10 mg PO DAILY blood pressure 08/07/20 09/17/24 History hydrochlorothiazide 25 mg tablet 25 mg PO DAILY BP 06/18/21 09/17/24 History clopidogrel 75 mg tablet (Plavix) 75 mg PO DAILY BLODD THINNER 10/16/21 09/17/24 History accu-check fe plus See Rx Instructions .Route 09/10/22 09/17/24 History .COMPLEX DIABETES acetaminophen 500 mg capsule 500 mg PO Q6H PRN Pain 09/10/22 09/17/24 History metoprolol succinate 50 mg 100 mg PO DAILY heart 09/10/22 09/17/24 History tablet,extended release 24 hr losartan 100 mg tablet (Cozaar) 100 mg PO DAILY BP 11/26/22 09/17/24 History metformin 500 mg tablet,extended 500 mg PO BID DIABETES 11/26/22 09/17/24 History release 24 hr atorvastatin 40 mg tablet 40 mg PO QHS 07/14/23 09/17/24 History meloxicam 15 mg tablet 15 mg PO DAILY 07/14/23 09/17/24 History aspirin 81 mg tablet,delayed 81 mg PO DAILY 09/03/23 09/17/24 History release baclofen 20 mg tablet 20 mg PO TID 02/17/24 09/17/24 History hydralazine 50 mg tablet 100 mg PO TID 02/17/24 09/17/24 History benzonatate 200 mg capsule 200 mg PO TID PRN cough #20 caps 04/11/24 09/17/24 Rx methylprednisolone 4 mg tablets in See Rx Instructions PO PER PKG DIR 04/11/24 09/17/24 Rx a dose pack (Medrol (Anirduh)) #21 tabs lithium carbonate 300 mg capsule 900 mg (3 x 300 mg) PO 0800 04/19/24 09/17/24 Rx DEPRESSION 90 days #270 caps prednisone 10 mg tablet 10 mg PO DAILY #30 tabs 05/09/24 09/17/24 Rx amitriptyline 100 mg tablet 100 mg PO QHS #90 tabs 05/31/24 09/17/24 Rx lactulose 10 gram/15 mL oral 15 ml PO DAILY Tremor #1,350 mL 05/31/24 09/17/24 Rx solution tizanidine 4 mg tablet 4 mg PO TID PRN muscle spasticity; 05/31/24 09/17/24 Rx muscle pain #270 tabs trazodone 50 mg tablet 100 mg (2 x 50 mg) PO QHS PRN 07/20/24 09/17/24 Rx sleep #180 tabs prednisone 10 mg tablet 10 mg PO DAILY #30 tabs 08/01/24 09/17/24 Rx prednisone 20 mg tablet See Rx Instructions PO QDAY 13 09/17/24 09/17/24 Rx days #20 tabs Have you fallen in the past year?: Yes Nurse's Note: Poison Kirstie all over his body this is the 5 time he has had this. [facility] Medical History URI (upper respiratory infection) Carotid stenosis Hematoma of neck Wears glasses Alcohol use Bipolar disorder High cholesterol Seizures Non-smoker History of echocardiogram History of heart attack Hypertension Cardiology follow-up encounter History of stress test Osteoarthritis of left knee Carotid stenosis, bilateral Shortness of breath Bipolar 1 disorder Essential hypertension Pharyngitis Acute bronchitis Chest pain Shoulder pain Arthritis Surgical History History of right-sided carotid endarterectomy Hx of transurethral resection of prostate Hx of total knee arthroplasty History of colonoscopy ( 10/2022) History of bursectomy History of arthroscopy of knee History of carpal tunnel release Family History Father Myocardial infarction Hypertension Alcoholism Mother Cancer Diabetes Brother Heart disease Hypertension Alcoholism Cancer prostate Grandfather Myocardial infarction CVA (cerebral vascular accident) Carotid arterial disease Social History Smoking Status: Never smoker alcohol intake: current alcohol intake frequency: 0-2 drinks per day Alcohol type: beer substance use type: does not use HPI HPI Chief Complaint: poison kirstie Details: NIKO HUITRON, is a 64 M who presents to the office today for evaluation of poison kirstie. Patient states that he was clearing brush within the past week and started with a rash on his arms and chest shortly after. Patient states that the knows he was around poison kirstie when clearing the brush so he (more content not included)... Normal [facility] Neurology Visit Reporton Neurology Visit Report [facility] [address], [address] [place] [id number] OFFICE VISIT Date of Service: 08/24/24 MR#: [id number] Acct: [id number] Name: NIKO HUITRON Rep #: [id number] : 1960 Provider: Dr. Hudson francisco MD Age/Sex: 64/M Location: [facility] Status: Signed Office Procedures Neurology POC Injection: 1-2 Sites Details:: Procedure note Bilateral lumbar paraspinal muscle trigger point injections. The patient reports worsening low back pain over the past month. His last lumbar trigger point injections were of benefit. Written informed consent was obtained Physical exam: Neuro: The patient is awake and alert and responds appropriately Back: Bilateral lumbar paraspinal muscle point tenderness is noted The injection sites were prepped with alcohol swabs. Methylprednisolone 40 mg IM and bupivacaine 0.75% 5 mL IM was administered in the right lumbar paraspinal muscles. Methylprednisolone 40 mg IM and bupivacaine 0.75% 5 mL IM was administered in the left lumbar paraspinal muscles. The injection sites were bandaged. The patient tolerated the procedure well. There were no complications. 80 mg of an 80 mg vial of methylprednisolone was used. No methylprednisolone was discarded. Office Meds methylprednisolone acetate 80 mg/mL suspension for injection Performing Provider: Hudson Almanzar MD Performing Location: [facility] Administered by: Hudson Almanzar MD on 08/24/24 12:13 Dose Route Admin Location Dispensed Lot Number Expiration Date [employer] 80 mg IM Bilateral lumbar paraspin 1 mL [id number] 12/24/25 [address]-7 [employer] Assessment and Plan Assessment and Plan (1) Low back pain: Status: Chronic Qualifiers: Chronicity: unspecified Back pain laterality: unspecified Sciatica presence: unspecified whether sciatica present Qualified Code(s): M54.50 - Low back pain, unspecified (2) Myalgia: Status: Acute Orders: Orders Neurology POC Today M54.50 - Low back pain, unspecified, M79.10 - Myalgia, unspecified site Methylprednisolone 80mg Today M54.50 - Low back pain, unspecified, M79.10 - Myalgia, unspecified site Intake Vital Signs 05/31/24 07:50 07/20/24 07:15 08/24/24 08:48 Height 6 ft 1 in 6 ft 1 in 6 ft 1 in Weight: 277 lb BMI 36.5 BP 107/63 148/76 H Blood Pressure Location Rt brachial Rt brachial Position Sitting Sitting Respiration 17 Pulse 62 100 Pulse Source Monitor Monitor Temp 98.2 F Temp Source Temporal Pulse Oximetry (%) 94 Oxygen Delivery Method room air Intake Visit Reasons: TRIGGER 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 Administrative Assistant Required: No Accompanied by: Self Allergies No Known Allergies Allergy (Verified 08/24/24 08:52) Have you fallen in the past year?: No PFSH Medical History URI (upper respiratory infection) Carotid stenosis Hematoma of neck Wears glasses Alcohol use Bipolar disorder High cholesterol Seizures Non-smoker History of echocardiogram History of heart attack Hypertension Cardiology follow-up encounter History of stress test Osteoarthritis of left knee Carotid stenosis, bilateral Shortness of breath Bipolar 1 disorder Essential hypertension Pharyngitis Acute bronchitis Chest pain Shoulder pain Arthritis Surgical History History of right-sided carotid endarterectomy Hx of transurethral resection of prostate Hx of total knee arthroplasty History of colonoscopy ( 10/2022) History of bursectomy History of arthroscopy of knee History of carpal tunnel release Family History Father Myocardial infarction Hypertension Alcoholism Mother Cancer Diabetes Brother Heart disease Hypertension Alcoholism Cancer prostate Grandfather Myocardial infarction CVA (cerebral vascular accident) Carotid arterial disease Social History Smoking Status: Never smoker alcohol intake: current alcohol intake frequency: 0-2 drinks per day Alcohol type: beer substance use type: does not use Clinical Quality Measures Falls Risk Screening/Assistive Devices Have you fallen in the past year?: No Coding Level of Care Code Attention Ana Diagnoses Low back pain, unspecified back pain laterality, unspecified chronicity, unspecified whether sciatica present M54.50 Chronicity: unspecified Back pain laterality: unspecified Sciatica presence: unspecified whether sciatica present Myalgia M79.10 CPT Codes Injection - Injection: 1-2 Sites (18959) Comment Bilateral lumbar paraspinal muscle trigger point injections for low back pain 08/24/24 1217 Date (more content not included)... Normal [facility] Absolute lymphocyte countOrd ered By: Silverio Salmeron on 08-26-2023 Lymphocytes Auto (Unsp spec) [#/Vol] 2.97 10*3/uL 0.83-4.51 [facility] Basophil percentageOrdered B y: Silverio Salmeron on 08-26-2023 Basophils/100 WBC (Bld) 1.1 % 0-1 [facility] Bilirubin [Mass/Vol] 0.30 mg/dL 0.20-1.00 [facility] Comment on above: For patients on eltr ombopag therapy, use of Dimension [place] TBIL is not recommended. Chloride [Moles/Vol] 105 mmol/L 98-107 [facility] Cholesterol [Mass/Vol] 150 mg/dL <200 [facility] Comment on above: <200 mg/dL Desirable 200-240 mg/dL Borderline >240 mg/dL High Risk Eosinophils/100 WBC (Bld) 2.0 % 0-5 [facility] Glucose [Mass/Vol] 132 mg/dL 74-106 [facility] Comment on above: Fasting Glucose resu lt greater than or equal to 126 mg/dL suggests DIABETES MELLITUS per A.D.A. criteria. Neutrophils (Bld) [#/Vol] 8.6 10*3/uL 2.0-7.7 [facility] Neutrophils/100 WBC (Bld) 64.8 % 47-70 [facility] Potassium [Moles/Vol] 4.1 mmol/L 3.5-5.1 [facility] Protein [Mass/Vol] 6.4 g/dL 6.4-8.2 [facility] Sodium [Moles/Vol] 137 mmol/L 136-145 [facility] Triglyceride [Mass/Vol] 223 mg/dL <199 [facility] Comment on above: The drugs N-Acetylcy steine and Metamizole may falsely depress this assay.Serum Triglycerides Reference Interval Normal <150 mg/dL Borderline high 150 - 199 mg/dL High 200 - 499 mg/dL Very High > or = 500 mg/dL WBC (Bld) [#/Vol] 13.2 10*3/uL 4.4-11.0 [facility] Blood erythrocytes count (nu mber/volume)Ordered By: Silverio Salmeron on 08-26-2023 RBC (Bld) [#/Vol] 4.55 10*6/uL 4.6-6.2 [facility] Blood hemoglobin measurement (mass/volume)Ordered By: Silverio Samleron on 08-26-2023 Hemoglobin (Bld) [Mass/Vol] 13.7 g/dL 13.0-16.5 [facility] Blood lymphocytes/100 leukoc ytesOrdered By: Silverio Salmeron on 08-26-2023 Lymphocytes/100 WBC (Bld) 22.4 % 19-41 [facility] Blood monocytes/100 leukocyt esOrdered By: Silverio Salmeron on 08-26-2023 Monocytes/100 WBC (Bld) 8.5 % 0-10 [facility] Blood platelet mean volumeOr dered By: Silverio Salmeron on 08-26-2023 Platelet mean volume (Bld) [Entitic vol] 9.8 fL 6.2-12.0 [facility] Determination of erythrocyte mean corpuscular volume (MCV)Ordered By: Silverio Salmeron on 08-26-2023 MCV (RBC) [Entitic vol] 92.1 fL 80-94 [facility] Hematocrit Auto (Bld) [Volum e fraction]Ordered By: Silverio Salmeron on 08-26-2023 Hematocrit (Bld) [Volume fraction] 41.9 % 40-54 [facility] Laboratory - Chemistry and C hemistry - challengeOrdered By: Silverio Salmeron on 08-26-2023 ALP [Catalytic activity/Vol] 43 U/L 45-117 [facility] ALT [Catalytic activity/Vol] 38 U/L 16-61 [facility] CO2 [Moles/Vol] 26.0 mmol/L 21.0-32.0 [facility] Globulin (S) [Mass/Vol] 3.1 g/dL 2.2-4.2 [facility] Urea nitrogen/Creatinine [Mass ratio] 15.0 mg/mg 10-20 [facility] Laboratory - Hematology and Cell countsOrdered By: Silverio Salmeron on 08-26-2023 Erythrocyte distribution width (RBC) [Entitic vol] 46.8 fL 35.1-43.9 [facility] Erythrocyte distribution width (RBC) [Ratio] 13.8 % 11.6-14.6 [facility] Immature granulocytes/100 WBC (Bld) 1.200 % 0.0-0.9 [facility] Comment on above: IG% - Immature Granu locytes (promyelocytes, myelocytes and metamyelocytes) > 1% indicates that a LEFT SHIFT is Present. MCH (RBC) [Entitic mass] 30.1 pg 27.0-32.0 [facility] Nucleated RBC/100 WBC (Bld) [Ratio] 0 % 0-5 [facility] MCHC Auto (RBC) [Mass/Vol]Or dered By: Silverio Salmeron on 08-26-2023 MCHC (RBC) [Mass/Vol] 32.7 g/dL 32-36 [facility] No Panel InformationOrdered By: Silverio Salmeron on 08-26-2023 Estimated GFR (MDRD) Amer 96 mL/min >60 [facility] Comment on above: GFR Calc Estimated GFR (MDRD) Non-Af Amer 80 mL/min >60 [facility] Comment on above: Non- GFR Calc Platelets bldOrdered By: Aric Salmeron on 08-26-2023 Platelets (Bld) [#/Vol] 281 10*3/uL 150-450 [facility] Serum or plasma albumin jony urement (mass/volume)Ordered By: Silverio Salmeron on 08-26-2023 Albumin [Mass/Vol] 3.3 g/dL 3.2-5.0 [facility] Serum or plasma albumin/glob ulin mass ratioOrdered By: Silverio Salmeron on 08-26-2023 Albumin/Globulin [Mass ratio] 1.1 {ratio} 0.9-2.4 [facility] Serum or plasma calcium jony urement (mass/volume)Ordered By: Silverio Salmeron on 08-26-2023 Calcium [Mass/Vol] 8.6 mg/dL 8.5-10.1 [facility] Serum or plasma cholesterol in HDL measurement (mass/volume)Ordered By: Silverio Salmeron on 08-26-2023 Cholesterol in HDL [Mass/Vol] 45 mg/dL >40 [facility] Comment on above: The drugs N-Acetylcy steine and Metamizole may falsely depress this assay. Reference Range HDL <40 mg/dL Low HDL Cholesterol HDL >or= 60 mg/dL High HDL Cholesterol Serum or plasma cholesterol in VLDL measurement (mass/volume)Ordered By: Silverio Salmeron on 08-26-2023 Cholesterol in VLDL [Mass/Vol] 45 mg/dL 5-40 [facility] Serum or plasma creatinine m easurement (mass/volume)Ordered By: Silverio Salmeron on 08-26-2023 Creatinine [Mass/Vol] 1.00 mg/dL 0.70-1.30 [facility] Comment on above: The validity of the calculated GFR & GFRAA in patients over 70 years has not been determined. Clinical correlation is essential. Serum or plasma low density lipoprotein (LDL) cholesterol measurement (mass/volume)Ordered By: Silverio Salmeron on 08-26-2023 Cholesterol in LDL [Mass/Vol] 60 mg/dL 0-130 [facility] Serum or plasma urea nitroge n measurement (mass/volume)Ordered By: Silverio Salmeron on 08-26-2023 Urea nitrogen [Mass/Vol] 15 mg/dL 7-18 [facility] Thin prep Papanicolaou smear with manual screeningOrdered By: Silverio Salmeron on 08-26-2023 Thin prep Papanicolaou smear with manual screening 18 U/L 15-37 [facility] Thin prep Papanicolaou smear with manual screening 6 5-15 [facility] Whole blood hemoglobin A1c/t otal hemoglobin ratio (mass fraction)Ordered By: Silverio Salmeron on 08-26-2023 HbA1c (Bld) [Mass fraction] 6.0 % 3.8-5.6 [facility] Comment on above: Normal < 5.7 % Predi abetic 5.7 - 6.4 % Diabetic >or= 6.5 % Please note range changes. No Panel InformationOrdered By: Silverio Salmeron on 05-14-2023 Urine Microalbumin/Creatinin e Ratio 5.3 mg/g CRE <30 [facility] Thin prep Papanicolaou smear with manual screeningOrdered By: Silverio Salmeron on 05-14-2023 Thin prep Papanicolaou smear with manual screening 6.6 mg/L NO RANGE EST. [facility] Urine creatinine measurement (mass/volume)Ordered By: Silverio Salmeron on 05-14-2023 Creatinine (U) [Mass/Vol] 126.00 mg/dL NO RANGE EST. [facility] Absolute lymphocyte countOrd ered By: Dr. Salmeron on 05-04-2023 Lymphocytes Auto (Unsp spec) [#/Vol] 2.18 10*3/uL 0.83-4.51 [facility] Basophil percentageOrdered B y: Dr. Salmeron on 05-04-2023 Basophils/100 WBC (Bld) 1.1 % 0-1 [facility] Bilirubin [Mass/Vol] 0.20 mg/dL 0.20-1.00 [facility] Comment on above: For patients on eltr ombopag therapy, use of Dimension [place] TBIL is not recommended. Chloride [Moles/Vol] 109 mmol/L 98-107 [facility] Cholesterol [Mass/Vol] 123 mg/dL <200 [facility] Comment on above: <200 mg/dL Desirable 200-240 mg/dL Borderline >240 mg/dL High Risk Eosinophils/100 WBC (Bld) 3.0 % 0-5 [facility] Glucose [Mass/Vol] 116 mg/dL 74-106 [facility] Comment on above: Fasting Glucose resu lt from 100 to 125 mg/dL suggests IMPAIRED HOMEOSTASIS per A.D.A. criteria. Neutrophils (Bld) [#/Vol] 6.0 10*3/uL 2.0-7.7 [facility] Neutrophils/100 WBC (Bld) 62.5 % 47-70 [facility] Potassium [Moles/Vol] 3.9 mmol/L 3.5-5.1 [facility] Protein [Mass/Vol] 6.3 g/dL 6.4-8.2 [facility] Sodium [Moles/Vol] 140 mmol/L 136-145 [facility] Triglyceride [Mass/Vol] 136 mg/dL <199 [facility] Comment on above: The drugs N-Acetylcy steine and Metamizole may falsely depress this assay.Serum Triglycerides Reference Interval Normal <150 mg/dL Borderline high 150 - 199 mg/dL High 200 - 499 mg/dL Very High > or = 500 mg/dL WBC (Bld) [#/Vol] 9.6 10*3/uL 4.4-11.0 [facility] Blood erythrocytes count (nu mber/volume)Ordered By: Dr. Salmeron on 05-04-2023 RBC (Bld) [#/Vol] 4.46 10*6/uL 4.6-6.2 [facility] Blood hemoglobin measurement (mass/volume)Ordered By: Dr. Salmeron on 05-04-2023 Hemoglobin (Bld) [Mass/Vol] 13.0 g/dL 13.0-16.5 [facility] Blood lymphocytes/100 leukoc ytesOrdered By: Dr. Salmeron on 05-04-2023 Lymphocytes/100 WBC (Bld) 22.7 % 19-41 [facility] Blood monocytes/100 leukocyt esOrdered By: Dr. Salmeron on 05-04-2023 Monocytes/100 WBC (Bld) 10.2 % 0-10 [facility] Blood platelet mean volumeOr dered By: Dr. Salmeron on 05-04-2023 Platelet mean volume (Bld) [Entitic vol] 9.9 fL 6.2-12.0 [facility] Determination of erythrocyte mean corpuscular volume (MCV)Ordered By: Dr. Salmeron on 05-04-2023 MCV (RBC) [Entitic vol] 90.8 fL 80-94 [facility] Hematocrit Auto (Bld) [Volum e fraction]Ordered By: Dr. Salmeron on 05-04-2023 Hematocrit (Bld) [Volume fraction] 40.5 % 40-54 [facility] Laboratory - Chemistry and C hemistry - challengeOrdered By: Dr. Salmeron on 05-04-2023 ALP [Catalytic activity/Vol] 55 U/L 45-117 [facility] ALT [Catalytic activity/Vol] 36 U/L 16-61 [facility] CO2 [Moles/Vol] 24.0 mmol/L 21.0-32.0 [facility] Globulin (S) [Mass/Vol] 3.1 g/dL 2.2-4.2 [facility] Urea nitrogen/Creatinine [Mass ratio] 9.1 mg/mg 10-20 [facility] Laboratory - Hematology and Cell countsOrdered By: Dr. Salmeron on 05-04-2023 Erythrocyte distribution width (RBC) [Entitic vol] 46.0 fL 35.1-43.9 [facility] Erythrocyte distribution width (RBC) [Ratio] 13.9 % 11.6-14.6 [facility] Immature granulocytes/100 WBC (Bld) 0.500 % 0.0-0.9 [facility] Comment on above: IG% - Immature Granu locytes (promyelocytes, myelocytes and metamyelocytes) > 1% indicates that a LEFT SHIFT is Present. MCH (RBC) [Entitic mass] 29.1 pg 27.0-32.0 [facility] Nucleated RBC/100 WBC (Bld) [Ratio] 0 % 0-5 [facility] MCHC Auto (RBC) [Mass/Vol]Or dered By: Dr. Salmeron on 05-04-2023 MCHC (RBC) [Mass/Vol] 32.1 g/dL 32-36 [facility] No Panel InformationOrdered By: Dr. Salmeron on 05-04-2023 Estimated GFR (MDRD) Amer 112 mL/min >60 [facility] Comment on above: GFR Calc Estimated GFR (MDRD) Non-Af Amer 93 mL/min >60 [facility] Comment on above: Non- GFR Calc Thyroid Stimulating Hormone (TSH) 2.70 uIU/mL 0.358-3.74 [facility] Platelets bldOrdered By: Dr. Salmeron on 05-04-2023 Platelets (Bld) [#/Vol] 282 10*3/uL 150-450 [facility] Serum or plasma albumin jony urement (mass/volume)Ordered By: Dr. Salmeron on 05-04-2023 Albumin [Mass/Vol] 3.2 g/dL 3.2-5.0 [facility] Serum or plasma albumin/glob ulin mass ratioOrdered By: Dr. Salmeron on 05-04-2023 Albumin/Globulin [Mass ratio] 1.0 {ratio} 0.9-2.4 [facility] Serum or plasma calcium jony urement (mass/volume)Ordered By: Dr. Salmeron on 05-04-2023 Calcium [Mass/Vol] 8.5 mg/dL 8.5-10.1 [facility] Serum or plasma cholesterol in HDL measurement (mass/volume)Ordered By: Dr. Salmeron on 05-04-2023 Cholesterol in HDL [Mass/Vol] 38 mg/dL >40 [facility] Comment on above: The drugs N-Acetylcy steine and Metamizole may falsely depress this assay. Reference Range HDL <40 mg/dL Low HDL Cholesterol HDL >or= 60 mg/dL High HDL Cholesterol Serum or plasma cholesterol in VLDL measurement (mass/volume)Ordered By: Dr. Salmeron on 05-04-2023 Cholesterol in VLDL [Mass/Vol] 27 mg/dL 5-40 [facility] Serum or plasma creatinine m easurement (mass/volume)Ordered By: Dr. Salmeron on 05-04-2023 Creatinine [Mass/Vol] 0.88 mg/dL 0.70-1.30 [facility] Comment on above: The validity of the calculated GFR & GFRAA in patients over 70 years has not been determined. Clinical correlation is essential. Serum or plasma low density lipoprotein (LDL) cholesterol measurement (mass/volume)Ordered By: Dr. Salmeron on 05-04-2023 Cholesterol in LDL [Mass/Vol] 58 mg/dL 0-130 [facility] Serum or plasma urea nitroge n measurement (mass/volume)Ordered By: Dr. Salmeron on 05-04-2023 Urea nitrogen [Mass/Vol] 8 mg/dL 7-18 [facility] Thin prep Papanicolaou smear with manual screeningOrdered By: Dr. Salmeron on 05-04-2023 Thin prep Papanicolaou smear with manual screening 26 U/L 15-37 [facility] Thin prep Papanicolaou smear with manual screening 7 5-15 [facility] Whole blood hemoglobin A1c/t otal hemoglobin ratio (mass fraction)Ordered By: Dr. Salmeron on 05-04-2023 HbA1c (Bld) [Mass fraction] 5.7 % 3.8-5.6 [facility] Comment on above: Normal < 5.7 % Predi abetic 5.7 - 6.4 % Diabetic >or= 6.5 % Please note range changes. No Panel InformationOrdered By: Dr. Fournier on 02-05-2023 Prostate Specific Antigen Screen 2.14 ng/mL 0.00-4.00 [facility] Comment on above: This test was perfor med using the TPSA assay method [facility] the[facility]. Values obtained with differentassay methods cannot be used interchangably.When changing PSA assays in the course of monitoring apatient, additional sequential testing should be carriedout to confirm baseline values. Basophil percentageOrdered B y: Dr. Salmeron on 02-02-2023 Basophil percentage < 0.9 mg/dL 0.70-1.30 [facility] No Panel InformationOrdered By: Dr. Salmeron on 02-02-2023 Bedside Estimated GFR (eGFR) > 60.0000 mL/min >60 [facility] Basophil percentageOrdered B y: Dr. Salmeron on 01-30-2023 Ammonia (P) [Moles/Vol] 30.0 umol/L [facility] Basophil percentageOrdered B y: Dr. Almanzar on 01-21-2023 Ammonia (P) [Moles/Vol] 56.0 umol/L [facility] No Panel InformationOrdered By: Dr. Almanzar on 01-21-2023 Thyroid Stimulating Hormone (TSH) 3.91 uIU/mL 0.358-3.74 [facility] CRYOGLOBULIN, QUAL, REFLEX T O ELDER AND IGG,A,Mon 01-15-2023 CRYOGLOBULIN, QUALITATIVE NEG 72Hour Normal -72Hour [facility] Comment on above: Order Comment: Speci men Type: BLOOD SPECIMEN Ordering Facility: [facility] Address: [address] [place] [address] Result Comment: This test was developed and its performance characteristics determined by [facility]. It has not been cleared or approved by the [place] Food and Drug Administration. This test was performed in a CLIA certified laboratory and is intended for clinical purposes. Performed By: [facility] [address] [place] [address] [place] Comber: Barrett Pak MD, PhD Performed By: #### C RYAGM #### [facility] CLIA [id number] [address] [place] [address] COLD AGGLUTIININSon 01-14-20 23 COLD AGGLUT, 37 DEGREES C Test not indicated when titer is <1:32 at 4 degrees C. [facility] Comment on above: Order Comment: Speci men Type: BLOOD SPECIMEN Ordering Facility: [facility] Address: [address] [place], [place] [id number] Result Comment: Seru m received without clot. Lab cannot verify appropriate specimen pre-treatment. Performed By: #### C OLD #### [facility] CLIA [id number] [facility] DES[id number] [place] COLD AGGLUT, 4 DEGREES C <1:32 Normal <1:32 [facility] Comment on above: Order Comment: Speci men Type: BLOOD SPECIMEN Ordering Facility: [facility] Address: [address] [place] [id number] Result Comment: This test was developed and its performance characteristics determined by [facility]'s [facility] ([facility]). It has not been cleared or approved by the FDA. [facility] is regulated under CLIA as qualified to perform high complexity testing. It should not be regarded as investigational or for research. Serum received without clot. Lab cannot verify appropriate specimen pre-treatment. Performed By: #### C OLD #### [facility] CLIA [id number] [address] [facility] DESK [id number] [place] [address] [place] No Panel InformationOrdered By: Dr. Salmeron on 01-08-2023 [place] Level 0.80 mmol/L 0.60-1.20 [facility] Andrew 12-21-2022 CNPN Telephone (MEPRAD) NIKO HUITRON ([id number]) 1960 M Date Time Provider Department 12/21/22 CARLOS STOREY During your visit today, we recorded the following information about you: Carlos Storey DO 12/21/2022 5:47 PM Signed Can let him know that the latest testing showed a small increase in antibodies that may be associated with his neuropathy. Please schedule established complex visit with me when schedule permits. DO Gayathri Vincent LPN 12/22/2022 8:18 AM Signed Pt notified and voices understanding. PSS please reach out to assist pt in scheduling. Gayathri Bright 12/22/2022 9:13 AM Signed Spoke with pt and scheduled as directed Allergies As of Date: 12/21/2022 (No Known Allergies) Date Reviewed: 11/07/2022 Reviewed by: Jesús Gonzalez Ma - Fully Assessed Reason for Visit: Results [95] Cmt: Antiganglioside antibodies Prescriptions as of 12/22/2022 - losartan (COZAAR) 100 mg tablet 50 mg once daily. - cyclobenzaprine (FLEXERIL) 5 mg tablet Take 5 mg by mouth every 8 hours. - amitriptyline (ELAVIL) 25 mg tablet Take 25 mg by mouth daily at bedtime. - traZODone (DESYREL) 100 mg tablet Take two tablets by mouth at bedtime. - atorvastatin (LIPITOR) 40 mg tablet Take 40 mg by mouth once daily. - clopidogrel (PLAVIX) 75 mg tablet Take 75 mg by mouth once daily. - metoprolol succinate ER (TOPROL XL) 100 mg Take 100 mg by mouth once daily. - amLODIPine (NORVASC) 10 mg tablet Take 10 mg by mouth once daily. - hydroCHLOROthiazide (HYDRODIURIL, ESIDRIX) 25 mg tablet Take 25 mg by mouth once daily. - aspirin, enteric coated (ASPIRIN, ENTERIC COATED) 81 mg EC tablet Take 81 mg by mouth once daily. - multivitamin tablet Take 1 tablet by mouth once daily. - acetaminophen (TYLENOL) 500 mg tablet Take 1,000 mg by mouth every 6 hours as needed. - lithium carbonate 300 mg tablet Take 300 mg by mouth three times daily. Problem List As Of Date 12/21/2022 Noted Resolved Essential hypertension [I10] 07/16/2017 Encounter Status:Closed by SHY BRIGHT on 12/22/22 [facility] Glucose Glucometer (BldC) [M ass/Vol]Ordered By: Dr. Gilbert on 12-09-2022 Glucose [Mass/Vol] 174 mg/dL 74-106 [facility] Comment on above: MANAGEMENT OF PATIEN T CARE PER NURSING PROTOCOL Basophil percentageOrdered B y: Dr. Gilbert on 11-27-2022 Chloride [Moles/Vol] 102 mmol/L 98-107 [facility] Glucose [Mass/Vol] 148 mg/dL 74-106 [facility] Comment on above: Fasting Glucose resu lt greater than or equal to 126 mg/dL suggests DIABETES MELLITUS per A.D.A. criteria. Potassium [Moles/Vol] 3.9 mmol/L 3.5-5.1 [facility] Sodium [Moles/Vol] 137 mmol/L 136-145 [facility] WBC (Bld) [#/Vol] 15.3 10*3/uL 4.4-11.0 [facility] Blood erythrocytes count (nu mber/volume)Ordered By: Dr. Gilbert on 11-27-2022 RBC (Bld) [#/Vol] 4.63 10*6/uL 4.6-6.2 [facility] Blood hemoglobin measurement (mass/volume)Ordered By: Dr. Gilbert on 11-27-2022 Hemoglobin (Bld) [Mass/Vol] 13.9 g/dL 13.0-16.5 [facility] Blood platelet mean volumeOr dered By: Dr. Gilbert on 11-27-2022 Platelet mean volume (Bld) [Entitic vol] 9.8 fL 6.2-12.0 [facility] Determination of erythrocyte mean corpuscular volume (MCV)Ordered By: Dr. Gilbert on 11-27-2022 MCV (RBC) [Entitic vol] 88.8 fL 80-94 [facility] Hematocrit Auto (Bld) [Volum e fraction]Ordered By: Dr. Gilbert on 11-27-2022 Hematocrit (Bld) [Volume fraction] 41.1 % 40-54 [facility] - Chemistry and C hemistry - challengeOrdered By: Dr. Gilbert on 11-27-2022 CO2 [Moles/Vol] 28.0 mmol/L 21.0-32.0 [facility] Urea nitrogen/Creatinine [Mass ratio] 16.4 mg/mg 10-20 [facility] - Hematology and Cell countsOrdered By: Dr. Gilbert on 11-27-2022 Erythrocyte distribution width (RBC) [Entitic vol] 42.0 fL 35.1-43.9 [facility] Erythrocyte distribution width (RBC) [Ratio] 13.0 % 11.6-14.6 [facility] MCH (RBC) [Entitic mass] 30.0 pg 27.0-32.0 [facility] MCHC Auto (RBC) [Mass/Vol]Or dered By: Dr. Gilbert on 11-27-2022 MCHC (RBC) [Mass/Vol] 33.8 g/dL 32-36 [facility] No Panel InformationOrdered By: Dr. Gilbert on 11-27-2022 Estimated GFR (MDRD) Amer 87 mL/min >60 [facility] Comment on above: GFR Calc Estimated GFR (MDRD) Non-Af Amer 72 mL/min >60 [facility] Comment on above: Non- GFR Calc Platelets bldOrdered By: Dr. Gilbert on 11-27-2022 Platelets (Bld) [#/Vol] 312 10*3/uL 150-450 [facility] Serum or plasma calcium jony urement (mass/volume)Ordered By: Dr. Gilbert on 11-27-2022 Calcium [Mass/Vol] 9.1 mg/dL 8.5-10.1 [facility] Serum or plasma creatinine m easurement (mass/volume)Ordered By: Dr. Gilbert on 11-27-2022 Creatinine [Mass/Vol] 1.10 mg/dL 0.70-1.30 [facility] Comment on above: The validity of the calculated GFR & GFRAA in patients over 70 years has not been determined. Clinical correlation is essential. Serum or plasma urea nitroge n measurement (mass/volume)Ordered By: Dr. Gilbert on 11-27-2022 Urea nitrogen [Mass/Vol] 18 mg/dL 7-18 [facility] Thin prep Papanicolaou smear with manual screeningOrdered By: Dr. Gilbert on 11-27-2022 Thin prep Papanicolaou smear with manual screening 7 5-15 [facility] Glucose Glucometer (BldC) [M ass/Vol]Ordered By: Dr. Gilbert on 11-18-2022 Glucose [Mass/Vol] 179 mg/dL 74-106 [facility] Comment on above: MANAGEMENT OF PATIEN T CARE PER NURSING PROTOCOL XR Bones Complete Survey Vie wson 11-12-2022 IMPRESSION: No lytic bony lesions identified. [employer] Representative: TORRIE Transcribe Date/Time: Nov 12 2022 2:01P Dictated by : MONAE CAMPBELL MD This examination was interpreted and the report reviewed and electronically signed by: MONAE CAMPBELL MD on Nov 12 2022 2:05PM [facility] DIVISION OF RADIOLOGY * * *Final Report* * * DATE OF EXAM: Nov 10 2022 9:02AM WOX [id number] - XR BONE SURVEY ROUTINE / PROCEDURE REASON: Gammopathy, benign monoclonal * * * * Physician Interpretation * * * * EXAM TITLE: XR BONE SURVEY ROUTINE EXAM DATE/TIME: 11/10/2022 9:02 AM COMPARISON: X-ray bone survey on 03/18/2022 CLINICAL INDICATION/HISTORY: Monoclonal gammopathy. TECHNIQUE: lateral skull, lateral cervical spine, frontal and lateral thoracic and lumbar spine, one view each upper extremity, frontal pelvis, frontal lower extremities as well as multiple views of the ribs. FINDINGS: Lateral view of the skull: No lytic osseous lesions. A lateral image of the cervical spine: No lytic osseous lesions. There are degenerative changes in the cervical spine with multilevel disc space narrowing. Frontal and lateral images of the thoracic and lumbar spine: No lytic osseous lesions. Degenerative changes visualized in the thoracic and lumbar spine with multilevel disc space narrowing. Single images of each upper extremity: No lytic osseous lesions. Images of the right and left ribs: No lytic osseous lesions. Frontal images of the pelvis and lower extremities: No lytic osseous lesions seen. Status post left knee arthroplasty. DIVISION OF RADIOLOGY Provider, [facility] - 11/12/2022 * * *Final Report* * * DATE OF EXAM: Nov 10 2022 9:02AM WOX [id number] - XR BONE SURVEY ROUTINE / PROCEDURE REASON: Gammopathy, benign monoclonal * * * * Physician Interpretation * * * * EXAM TITLE: XR BONE SURVEY ROUTINE EXAM DATE/TIME: 11/10/2022 9:02 AM COMPARISON: X-ray bone survey on 03/18/2022 CLINICAL INDICATION/HISTORY: Monoclonal gammopathy. TECHNIQUE: lateral skull, lateral cervical spine, frontal and lateral thoracic and lumbar spine, one view each upper extremity, frontal pelvis, frontal lower extremities as well as multiple views of the ribs. FINDINGS: Lateral view of the skull: No lytic osseous lesions. A lateral image of the cervical spine: No lytic osseous lesions. There are degenerative changes in the cervical spine with multilevel disc space narrowing. Frontal and lateral images of the thoracic and lumbar spine: No lytic osseous lesions. Degenerative changes visualized in the thoracic and lumbar spine with multilevel disc space narrowing. Single images of each upper extremity: No lytic osseous lesions. Images of the right and left ribs: No lytic osseous lesions. Frontal images of the pelvis and lower extremities: No lytic osseous lesions seen. Status post left knee arthroplasty. IMPRESSION IMPRESSION: No lytic bony lesions identified. [employer] Representative: TORRIE Transcribe Date/Time: Nov 12 2022 2:01P Dictated by : MONAE CAMPBELL MD This examination was interpreted and the report reviewed and electronically signed by: MONAE CAMPBELL MD on Nov 12 2022 2:05PM EST [facility] XR Bones Complete Survey Vie wsOrdered By: [facility]cf Provider on 11-12-2022 [facility] XR Bones Complete Survey Vie wson 11-10-2022 Radiology Study observation (narrative) [facility] Absolute lymphocyte countOrd ered By: Dr. Salmeron on 11-03-2022 Lymphocytes Auto (Unsp spec) [#/Vol] 2.88 10*3/uL 0.83-4.51 [facility] Basophil percentageOrdered B y: Dr. Salmeron on 11-03-2022 Basophils/100 WBC (Bld) 1.0 % 0-1 [facility] Bilirubin [Mass/Vol] 0.30 mg/dL 0.20-1.00 [facility] Comment on above: For patients on eltr ombopag therapy, use of Dimension [place] TBIL is not recommended. Chloride [Moles/Vol] 103 mmol/L 98-107 [facility] Cholesterol [Mass/Vol] 92 mg/dL <200 [facility] Comment on above: <200 mg/dL Desirable 200-240 mg/dL Borderline >240 mg/dL High Risk Eosinophils/100 WBC (Bld) 2.3 % 0-5 [facility] Glucose [Mass/Vol] 165 mg/dL 74-106 [facility] Comment on above: Fasting Glucose resu lt greater than or equal to 126 mg/dL suggests DIABETES MELLITUS per A.D.A. criteria. Neutrophils (Bld) [#/Vol] 9.2 10*3/uL 2.0-7.7 [facility] Neutrophils/100 WBC (Bld) 67.1 % 47-70 [facility] Potassium [Moles/Vol] 4.0 mmol/L 3.5-5.1 [facility] Protein [Mass/Vol] 6.5 g/dL 6.4-8.2 [facility] Sodium [Moles/Vol] 139 mmol/L 136-145 [facility] Triglyceride [Mass/Vol] 144 mg/dL <199 [facility] Comment on above: The drugs N-Acetylcy steine and Metamizole may falsely depress this assay.Serum Triglycerides Reference Interval Normal <150 mg/dL Borderline high 150 - 199 mg/dL High 200 - 499 mg/dL Very High > or = 500 mg/dL WBC (Bld) [#/Vol] 13.6 10*3/uL 4.4-11.0 [facility] Blood erythrocytes count (nu mber/volume)Ordered By: Dr. Salmeron on 11-03-2022 RBC (Bld) [#/Vol] 4.36 10*6/uL 4.6-6.2 [facility] Blood hemoglobin measurement (mass/volume)Ordered By: Dr. Salmeron on 11-03-2022 Hemoglobin (Bld) [Mass/Vol] 12.8 g/dL 13.0-16.5 [facility] Blood lymphocytes/100 leukoc ytesOrdered By: Dr. Salmeron on 11-03-2022 Lymphocytes/100 WBC (Bld) 21.2 % 19-41 [facility] Blood monocytes/100 leukocyt esOrdered By: Dr. Salmeron on 11-03-2022 Monocytes/100 WBC (Bld) 7.5 % 0-10 [facility] Blood platelet mean volumeOr dered By: Dr. Salmeron on 11-03-2022 Platelet mean volume (Bld) [Entitic vol] 10.1 fL 6.2-12.0 [facility] Determination of erythrocyte mean corpuscular volume (MCV)Ordered By: Dr. Salmeron on 11-03-2022 MCV (RBC) [Entitic vol] 89.2 fL 80-94 [facility] Hematocrit Auto (Bld) [Volum e fraction]Ordered By: Dr. Salmeron on 11-03-2022 Hematocrit (Bld) [Volume fraction] 38.9 % 40-54 [facility] Laboratory - Chemistry and C hemistry - challengeOrdered By: Dr. Salmeron on 11-03-2022 ALP [Catalytic activity/Vol] 62 U/L 45-117 [facility] ALT [Catalytic activity/Vol] 39 U/L 16-61 [facility] CO2 [Moles/Vol] 29.0 mmol/L 21.0-32.0 [facility] Globulin (S) [Mass/Vol] 3.0 g/dL 2.2-4.2 [facility] Urea nitrogen/Creatinine [Mass ratio] 12.2 mg/mg 10-20 [facility] Laboratory - Hematology and Cell countsOrdered By: Dr. Salmeron on 11-03-2022 Erythrocyte distribution width (RBC) [Entitic vol] 42.3 fL 35.1-43.9 [facility] Erythrocyte distribution width (RBC) [Ratio] 13.1 % 11.6-14.6 [facility] Immature granulocytes/100 WBC (Bld) 0.900 % 0.0-0.9 [facility] Comment on above: IG% - Immature Granu locytes (promyelocytes, myelocytes and metamyelocytes) > 1% indicates that a LEFT SHIFT is Present. MCH (RBC) [Entitic mass] 29.4 pg 27.0-32.0 [facility] Nucleated RBC/100 WBC (Bld) [Ratio] 0 % 0-5 [facility] MCHC Auto (RBC) [Mass/Vol]Or dered By: Dr. Salmeron on 11-03-2022 MCHC (RBC) [Mass/Vol] 32.9 g/dL 32-36 [facility] No Panel InformationOrdered By: Dr. Salmeron on 11-03-2022 Urine Microalbumin/Creatinin e Ratio 6.8 mg/g CRE <30 [facility] Estimated GFR (MDRD) Amer 109 mL/min >60 [facility] Comment on above: GFR Calc Estimated GFR (MDRD) Non-Af Amer 90 mL/min >60 [facility] Comment on above: Non- GFR Calc Platelets bldOrdered By: Dr. Salmeron on 11-03-2022 Platelets (Bld) [#/Vol] 286 10*3/uL 150-450 [facility] Serum or plasma albumin jony urement (mass/volume)Ordered By: Dr. Salmeron on 11-03-2022 Albumin [Mass/Vol] 3.5 g/dL 3.2-5.0 [facility] Serum or plasma albumin/glob ulin mass ratioOrdered By: Dr. Salmeron on 11-03-2022 Albumin/Globulin [Mass ratio] 1.2 {ratio} 0.9-2.4 [facility] Serum or plasma calcium jony urement (mass/volume)Ordered By: Dr. Salmeron on 11-03-2022 Calcium [Mass/Vol] 8.7 mg/dL 8.5-10.1 [facility] Serum or plasma cholesterol in HDL measurement (mass/volume)Ordered By: Dr. Salmeron on 11-03-2022 Cholesterol in HDL [Mass/Vol] 39 mg/dL >40 [facility] Comment on above: The drugs N-Acetylcy steine and Metamizole may falsely depress this assay. Reference Range HDL <40 mg/dL Low HDL Cholesterol HDL >or= 60 mg/dL High HDL Cholesterol Serum or plasma cholesterol in VLDL measurement (mass/volume)Ordered By: Dr. Salmeron on 11-03-2022 Cholesterol in VLDL [Mass/Vol] 29 mg/dL 5-40 [facility] Serum or plasma creatinine m easurement (mass/volume)Ordered By: Dr. Salmeron on 11-03-2022 Creatinine [Mass/Vol] 0.90 mg/dL 0.70-1.30 [facility] Comment on above: The validity of the calculated GFR & GFRAA in patients over 70 years has not been determined. Clinical correlation is essential. Serum or plasma low density lipoprotein (LDL) cholesterol measurement (mass/volume)Ordered By: Dr. Salmeron on 11-03-2022 Cholesterol in LDL [Mass/Vol] 24 mg/dL 0-130 [facility] Serum or plasma urea nitroge n measurement (mass/volume)Ordered By: Dr. Salmeron on 11-03-2022 Urea nitrogen [Mass/Vol] 11 mg/dL 7-18 [facility] Thin prep Papanicolaou smear with manual screeningOrdered By: Dr. Salmeron on 11-03-2022 Thin prep Papanicolaou smear with manual screening 5.3 mg/L NO RANGE EST. [facility] Thin prep Papanicolaou smear with manual screening 20 U/L 15-37 [facility] Thin prep Papanicolaou smear with manual screening 7 5-15 [facility] Urine creatinine measurement (mass/volume)Ordered By: Dr. Salmeron on 11-03-2022 Creatinine (U) [Mass/Vol] 77.80 mg/dL NO RANGE EST. [facility] Whole blood hemoglobin A1c/t otal hemoglobin ratio (mass fraction)Ordered By: Dr. Salmeron on 11-03-2022 HbA1c (Bld) [Mass fraction] 6.4 % 3.8-5.6 [facility] Comment on above: Normal < 5.7 % Predi abetic 5.7 - 6.4 % Diabetic >or= 6.5 % Please note range changes. Basophil percentageOrdered B y: Dr. Almanzar on 10-29-2022 Ammonia (P) [Moles/Vol] 37.0 umol/L [facility] Absolute lymphocyte countOrd ered By: Dr. Salmeron on 09-22-2022 Lymphocytes Auto (Unsp spec) [#/Vol] 2.25 10*3/uL 0.83-4.51 [facility] Basophil percentageOrdered B y: Dr. Salmeron on 09-22-2022 Basophils/100 WBC (Bld) 0.8 % 0-1 [facility] Bilirubin [Mass/Vol] 0.50 mg/dL 0.20-1.00 [facility] Comment on above: For patients on eltr ombopag therapy, use of Dimension [place] TBIL is not recommended. Chloride [Moles/Vol] 101 mmol/L 98-107 [facility] Eosinophils/100 WBC (Bld) 2.3 % 0-5 [facility] Glucose [Mass/Vol] 163 mg/dL 74-106 [facility] Comment on above: Fasting Glucose resu lt greater than or equal to 126 mg/dL suggests DIABETES MELLITUS per A.D.A. criteria. Neutrophils (Bld) [#/Vol] 10.6 10*3/uL 2.0-7.7 [facility] Neutrophils/100 WBC (Bld) 73.5 % 47-70 [facility] Potassium [Moles/Vol] 3.4 mmol/L 3.5-5.1 [facility] Protein [Mass/Vol] 7.5 g/dL 6.4-8.2 [facility] Sodium [Moles/Vol] 135 mmol/L 136-145 [facility] WBC (Bld) [#/Vol] 14.4 10*3/uL 4.4-11.0 [facility] Blood erythrocytes count (nu mber/volume)Ordered By: Dr. Salmeron on 09-22-2022 RBC (Bld) [#/Vol] 4.72 10*6/uL 4.6-6.2 [facility] Blood hemoglobin measurement (mass/volume)Ordered By: Dr. Salmeron on 09-22-2022 Hemoglobin (Bld) [Mass/Vol] 14.5 g/dL 13.0-16.5 [facility] Blood lymphocytes/100 leukoc ytesOrdered By: Dr. Salmeron on 09-22-2022 Lymphocytes/100 WBC (Bld) 15.7 % 19-41 [facility] Blood monocytes/100 leukocyt esOrdered By: Dr. Salmeron on 09-22-2022 Monocytes/100 WBC (Bld) 7.4 % 0-10 [facility] Blood platelet mean volumeOr dered By: Dr. Salmeron on 09-22-2022 Platelet mean volume (Bld) [Entitic vol] 10.1 fL 6.2-12.0 [facility] Determination of erythrocyte mean corpuscular volume (MCV)Ordered By: Dr. Salmeron on 09-22-2022 MCV (RBC) [Entitic vol] 88.1 fL 80-94 [facility] Hematocrit Auto (Bld) [Volum e fraction]Ordered By: Dr. Salmeron on 09-22-2022 Hematocrit (Bld) [Volume fraction] 41.6 % 40-54 [facility] Laboratory - Chemistry and C hemistry - challengeOrdered By: Dr. Salmeron on 09-22-2022 ALP [Catalytic activity/Vol] 67 U/L 45-117 [facility] ALT [Catalytic activity/Vol] 35 U/L 16-61 [facility] CO2 [Moles/Vol] 24.0 mmol/L 21.0-32.0 [facility] Globulin (S) [Mass/Vol] 3.6 g/dL 2.2-4.2 [facility] Urea nitrogen/Creatinine [Mass ratio] 17.2 mg/mg 10-20 [facility] Laboratory - Hematology and Cell countsOrdered By: Dr. Salmeron on 09-22-2022 Erythrocyte distribution width (RBC) [Entitic vol] 42.3 fL 35.1-43.9 [facility] Erythrocyte distribution width (RBC) [Ratio] 13.0 % 11.6-14.6 [facility] Immature granulocytes/100 WBC (Bld) 0.300 % 0.0-0.9 [facility] Comment on above: IG% - Immature Granu locytes (promyelocytes, myelocytes and metamyelocytes) > 1% indicates that a LEFT SHIFT is Present. MCH (RBC) [Entitic mass] 30.7 pg 27.0-32.0 [facility] Nucleated RBC/100 WBC (Bld) [Ratio] 0 % 0-5 [facility] MCHC Auto (RBC) [Mass/Vol]Or dered By: Dr. Salmeron on 09-22-2022 MCHC (RBC) [Mass/Vol] 34.9 g/dL 32-36 [facility] No Panel InformationOrdered By: Dr. Almanzar on 09-22-2022 [place] Level 1.30 mmol/L 0.60-1.20 [facility] No Panel InformationOrdered By: Dr. Salmeron on 09-22-2022 Estimated GFR (MDRD) Amer 63 mL/min >60 [facility] Comment on above: GFR Calc Estimated GFR (MDRD) Non-Af Amer 52 mL/min >60 [facility] Comment on above: Non- GFR Calc Thyroid Stimulating Hormone (TSH) 6.49 uIU/mL 0.358-3.74 [facility] Platelets bldOrdered By: Dr. Salmeron on 09-22-2022 Platelets (Bld) [#/Vol] 266 10*3/uL 150-450 [facility] Serum or plasma albumin jony urement (mass/volume)Ordered By: Dr. Salmeron on 09-22-2022 Albumin [Mass/Vol] 3.9 g/dL 3.2-5.0 [facility] Serum or plasma albumin/glob ulin mass ratioOrdered By: Dr. Salmeron on 09-22-2022 Albumin/Globulin [Mass ratio] 1.1 {ratio} 0.9-2.4 [facility] Serum or plasma calcium jony urement (mass/volume)Ordered By: Dr. Salmeron on 09-22-2022 Calcium [Mass/Vol] 9.6 mg/dL 8.5-10.1 [facility] Serum or plasma creatinine m easurement (mass/volume)Ordered By: Dr. Salmeron on 09-22-2022 Creatinine [Mass/Vol] 1.45 mg/dL 0.70-1.30 [facility] Comment on above: The validity of the calculated GFR & GFRAA in patients over 70 years has not been determined. Clinical correlation is essential. Serum or plasma urea nitroge n measurement (mass/volume)Ordered By: Dr. Salmeron on 09-22-2022 Urea nitrogen [Mass/Vol] 25 mg/dL 7- [facility] Thin prep Papanicolaou smear with manual screeningOrdered By: Dr. Salmeron on 09-22-2022 Thin prep Papanicolaou smear with manual screening 21 U/L 15 [facility] Thin prep Papanicolaou smear with manual screening 10 -15 [facility] Whole blood hemoglobin A1c/t otal hemoglobin ratio (mass fraction)Ordered By: Dr. Salmeron on 09-22-2022 HbA1c (Bld) [Mass fraction] 6.4 % 3.8-5.6 [facility] Comment on above: Normal < 5.7 % Predi abetic 5.7 - 6.4 % Diabetic >or= 6.5 % Please note range changes. Absolute lymphocyte countOrd ered By: Dr. Almanzar on 09-10-2022 Lymphocytes Auto (Unsp spec) [#/Vol] 2.26 10*3/uL 0.83-4.51 [facility] Basophil percentageOrdered B y: Dr. Almanzar on 09-10-2022 Basophils/100 WBC (Bld) 1.1 % 0-1 [facility] Eosinophils/100 WBC (Bld) 1.3 % 0-5 [facility] Neutrophils (Bld) [#/Vol] 7.7 10*3/uL 2.0-7.7 [facility] Neutrophils/100 WBC (Bld) 68.6 % 47-70 [facility] WBC (Bld) [#/Vol] 11.3 10*3/uL 4.4-11.0 [facility] Blood erythrocytes count (nu mber/volume)Ordered By: Dr. Almanzar on 09-10-2022 RBC (Bld) [#/Vol] 4.44 10*6/uL 4.6-6.2 [facility] Blood hemoglobin measurement (mass/volume)Ordered By: Dr. Almanzar on 09-10-2022 Hemoglobin (Bld) [Mass/Vol] 13.5 g/dL 13.0-16.5 [facility] Blood lymphocytes/100 leukoc ytesOrdered By: Dr. Almanzar on 09-10-2022 Lymphocytes/100 WBC (Bld) 20.1 % 19-41 [facility] Blood monocytes/100 leukocyt esOrdered By: Dr. Almanzar on 09-10-2022 Monocytes/100 WBC (Bld) 8.4 % 0-10 [facility] Blood platelet mean volumeOr dered By: Dr. Almanzar on 09-10-2022 Platelet mean volume (Bld) [Entitic vol] 10.1 fL 6.2-12.0 [facility] Determination of erythrocyte mean corpuscular volume (MCV)Ordered By: Dr. Almanzar on 09-10-2022 MCV (RBC) [Entitic vol] 88.7 fL 80-94 [facility] Hematocrit Auto (Bld) [Volum e fraction]Ordered By: Dr. Almanzar on 09-10-2022 Hematocrit (Bld) [Volume fraction] 39.4 % 40-54 [facility] Laboratory - Chemistry and C hemistry - challengeOrdered By: Dr. Almanzar on 09-10-2022 Cobalamin (Vitamin B12) [Mass/Vol] 478 pg/mL 211-911 [facility] Laboratory - Hematology and Cell countsOrdered By: Dr. Almanzar on 09-10-2022 Erythrocyte distribution width (RBC) [Entitic vol] 44.1 fL 35.1-43.9 [facility] Erythrocyte distribution width (RBC) [Ratio] 13.7 % 11.6-14.6 [facility] Immature granulocytes/100 WBC (Bld) 0.500 % 0.0-0.9 [facility] Comment on above: IG% - Immature Granu locytes (promyelocytes, myelocytes and metamyelocytes) > 1% indicates that a LEFT SHIFT is Present. MCH (RBC) [Entitic mass] 30.4 pg 27.0-32.0 [facility] Nucleated RBC/100 WBC (Bld) [Ratio] 0 % 0-5 [facility] MCHC Auto (RBC) [Mass/Vol]Or dered By: Dr. Almanzar on 09-10-2022 MCHC (RBC) [Mass/Vol] 34.3 g/dL 32-36 [facility] No Panel InformationOrdered By: Dr. Almanzar on 09-10-2022 Thyroid Stimulating Hormone (TSH) 2.58 uIU/mL 0.358-3.74 [facility] Whole Blood Vitamin B1 Level 213.2 nmol/L 66.5-200.0 [facility] Comment on above: Performed at: [address] [id number] Director: Abigail Lemus MD, Phone: [phone] Platelets bldOrdered By: Dr. Almanzar on 09-10-2022 Platelets (Bld) [#/Vol] 262 10*3/uL 150-450 [facility] Serum or plasma folate measu rement (mass/volume)Ordered By: Dr. Almanzar on 09-10-2022 Folate [Mass/Vol] 48.20 ng/mL 3.1-55.4 [facility] Absolute lymphocyte counton 08-07-2022 Lymphocytes Auto (Unsp spec) [#/Vol] 4.95 10*3/uL 0.83-4.51 [facility] Work Phone: Basophil percentageon 2021 Basophils/100 WBC (Bld) 0.9 % 0-1 [facility] Work Phone: Bilirubin [Mass/Vol] 0.30 mg/dL 0.20-1.00 [facility] Work Phone: [phone] Comment on above: For patients on eltr ombopag therapy, use of Dimension [place] TBIL is not recommended. Chloride [Moles/Vol] 103 mmol/L 98-107 [facility] Work Phone: Cholesterol [Mass/Vol] 117 mg/dL <200 [facility] Work Phone: Comment on above: <200 mg/dL Desirable 200-240 mg/dL Borderline >240 mg/dL High Risk Eosinophils/100 WBC (Bld) 1.2 % 0-5 [facility] Work Phone: Glucose [Mass/Vol] 188 mg/dL 74-106 [facility] Work Phone: Comment on above: Fasting Glucose resu lt greater than or equal to 126 mg/dL suggests DIABETES MELLITUS per A.D.A. criteria. Neutrophils (Bld) [#/Vol] 9.6 10*3/uL 2.0-7.7 [facility] Work Phone: Neutrophils/100 WBC (Bld) 58.4 % 47-70 [facility] Work Phone: [phone] Potassium [Moles/Vol] 3.5 mmol/L 3.5-5.1 [facility] Work Phone: [phone] Protein [Mass/Vol] 6.7 g/dL 6.4-8.2 [facility] Work Phone: [phone] Sodium [Moles/Vol] 139 mmol/L 136-145 [facility] Work Phone: Triglyceride [Mass/Vol] 225 mg/dL <199 [facility] Work Phone: Comment on above: The drugs N-Acetylcy steine and Metamizole may falsely depress this assay.Serum Triglycerides Reference Interval Normal <150 mg/dL Borderline high 150 - 199 mg/dL High 200 - 499 mg/dL Very High > or = 500 mg/dL WBC (Bld) [#/Vol] 16.4 10*3/uL 4.4-11.0 [facility] Work Phone: Blood erythrocytes count (nu mber/volume)on 08-07-2022 RBC (Bld) [#/Vol] 4.54 10*6/uL 4.6-6.2 [facility] Work Phone: Blood hemoglobin measurement (mass/volume)on 08-07-2022 Hemoglobin (Bld) [Mass/Vol] 13.4 g/dL 13.0-16.5 [facility] Work Phone: [phone] Blood lymphocytes/100 leukoc yteson 08-07-2022 Lymphocytes/100 WBC (Bld) 30.3 % 19-41 [facility] Work Phone: [phone] Blood monocytes/100 leukocyt eson 08-07-2022 Monocytes/100 WBC (Bld) 7.8 % 0-10 [facility] Work Phone: Blood platelet mean volumeon 08-07-2022 Platelet mean volume (Bld) [Entitic vol] 9.8 fL 6.2-12.0 [facility] Work Phone: Determination of erythrocyte mean corpuscular volume (MCV)on 08-07-2022 MCV (RBC) [Entitic vol] 87.9 fL 80-94 [facility] Work Phone: Hematocrit Auto (Bld) [Volum e fraction]on 08-07-2022 Hematocrit (Bld) [Volume fraction] 39.9 % 40-54 [facility] Work Phone: Laboratory - Chemistry and C hemistry - challengeon 08-07-2022 ALP [Catalytic activity/Vol] 67 U/L 45-117 [facility] Work Phone: ALT [Catalytic activity/Vol] 35 U/L 16-61 [facility] Work Phone: CO2 [Moles/Vol] 29.0 mmol/L 21.0-32.0 [facility] Work Phone: Globulin (S) [Mass/Vol] 3.3 g/dL 2.2-4.2 [facility] Work Phone: [phone] Urea nitrogen/Creatinine [Mass ratio] 20.8 mg/mg 10-20 [facility] Work Phone: [phone] Laboratory - Hematology and Cell countson 08-07-2022 Erythrocyte distribution width (RBC) [Entitic vol] 42.3 fL 35.1-43.9 [facility] Work Phone: [phone] Erythrocyte distribution width (RBC) [Ratio] 13.2 % 11.6-14.6 [facility] Work Phone: [phone] Immature granulocytes/100 WBC (Bld) 1.400 % 0.0-0.9 [facility] Work Phone: [phone] Comment on above: IG% - Immature Granu locytes (promyelocytes, myelocytes and metamyelocytes) > 1% indicates that a LEFT SHIFT is Present. MCH (RBC) [Entitic mass] 29.5 pg 27.0-32.0 [facility] Work Phone: [phone] Nucleated RBC/100 WBC (Bld) [Ratio] 0 % 0-5 [facility] Work Phone: [phone] MCHC Auto (RBC) [Mass/Vol]on 08-07-2022 MCHC (RBC) [Mass/Vol] 33.6 g/dL 32-36 [facility] Work Phone: [phone] No Panel Informationon 08-07 Estimated GFR (MDRD) Amer 101 mL/min >60 [facility] Work Phone: [phone] Comment on above: GFR Calc Estimated GFR (MDRD) Non-Af Amer 84 mL/min >60 [facility] Work Phone: [phone] Comment on above: Non- GFR Calc Platelets bldon 08-07-2022 Platelets (Bld) [#/Vol] 269 10*3/uL 150-450 [facility] Work Phone: [phone] Serum or plasma albumin jony urement (mass/volume)on 08-07-2022 Albumin [Mass/Vol] 3.4 g/dL 3.2-5.0 [facility] Work Phone: Serum or plasma albumin/glob ulin mass ratioon 08-07-2022 Albumin/Globulin [Mass ratio] 1.0 {ratio} 0.9-2.4 [facility] Work Phone: Serum or plasma calcium jony urement (mass/volume)on 08-07-2022 Calcium [Mass/Vol] 8.9 mg/dL 8.5-10.1 [facility] Work Phone: Serum or plasma cholesterol in HDL measurement (mass/volume)on 08-07-2022 Cholesterol in HDL [Mass/Vol] 45 mg/dL >40 [facility] Work Phone: Comment on above: The drugs N-Acetylcy steine and Metamizole may falsely depress this assay. Reference Range HDL <40 mg/dL Low HDL Cholesterol HDL >or= 60 mg/dL High HDL Cholesterol Serum or plasma cholesterol in VLDL measurement (mass/volume)on 08-07-2022 Cholesterol in VLDL [Mass/Vol] 45 mg/dL 5-40 [facility] Work Phone: Serum or plasma creatinine m easurement (mass/volume)on 08-07-2022 Creatinine [Mass/Vol] 0.96 mg/dL 0.70-1.30 [facility] Work Phone: Comment on above: The validity of the calculated GFR & GFRAA in patients over 70 years has not been determined. Clinical correlation is essential. Serum or plasma low density lipoprotein (LDL) cholesterol measurement (mass/volume)on 08-07-2022 Cholesterol in LDL [Mass/Vol] 27 mg/dL 0-130 [facility] Work Phone: [phone] Serum or plasma urea nitroge n measurement (mass/volume)on 08-07-2022 Urea nitrogen [Mass/Vol] 20 mg/dL 7-18 [facility] Work Phone: [phone] Thin prep Papanicolaou smear with manual screeningon 08-07-2022 Thin prep Papanicolaou smear with manual screening 15 U/L 15-37 [facility] Work Phone: [phone] Thin prep Papanicolaou smear with manual screening 7 5-15 [facility] Work Phone: Whole blood hemoglobin A1c/t otal hemoglobin ratio (mass fraction)on 08-07-2022 HbA1c (Bld) [Mass fraction] 6.8 % 3.8-5.6 [facility] Work Phone: Comment on above: Normal < 5.7 % Predi abetic 5.7 - 6.4 % Diabetic >or= 6.5 % Please note range changes. Absolute lymphocyte counton 06-05-2022 Lymphocytes Auto (Unsp spec) [#/Vol] 3.33 10*3/uL 0.83-4.51 [facility] Work Phone: Basophil percentageon 2021 Basophils/100 WBC (Bld) 0.8 % 0-1 [facility] Work Phone: Bilirubin [Mass/Vol] 0.30 mg/dL 0.20-1.00 [facility] Work Phone: Comment on above: For patients on eltr ombopag therapy, use of Dimension [place] TBIL is not recommended. Chloride [Moles/Vol] 101 mmol/L 98-107 [facility] Work Phone: Cholesterol [Mass/Vol] 151 mg/dL <200 [facility] Work Phone: Comment on above: <200 mg/dL Desirable 200-240 mg/dL Borderline >240 mg/dL High Risk Eosinophils/100 WBC (Bld) 1.3 % 0-5 [facility] Work Phone: Glucose [Mass/Vol] 236 mg/dL 74-106 [facility] Work Phone: Comment on above: Glucose result great er than or equal to 200 mg/dLsuggests DIABETES MELLITUS per A.D.A. criteria. Neutrophils (Bld) [#/Vol] 7.6 10*3/uL 2.0-7.7 [facility] Work Phone: Neutrophils/100 WBC (Bld) 61.7 % 47-70 [facility] Work Phone: Potassium [Moles/Vol] 3.5 mmol/L 3.5-5.1 [facility] Work Phone: [phone] Protein [Mass/Vol] 6.4 g/dL 6.4-8.2 [facility] Work Phone: [phone] Sodium [Moles/Vol] 135 mmol/L 136-145 [facility] Work Phone: [phone] Triglyceride [Mass/Vol] 225 mg/dL <199 [facility] Work Phone: [phone] Comment on above: The drugs N-Acetylcy steine and Metamizole may falsely depress this assay.Serum Triglycerides Reference Interval Normal <150 mg/dL Borderline high 150 - 199 mg/dL High 200 - 499 mg/dL Very High > or = 500 mg/dL WBC (Bld) [#/Vol] 12.3 10*3/uL 4.4-11.0 [facility] Work Phone: [phone] Blood erythrocytes count (nu mber/volume)on 06-05-2022 RBC (Bld) [#/Vol] 4.51 10*6/uL 4.6-6.2 [facility] Work Phone: [phone] Blood hemoglobin measurement (mass/volume)on 06-05-2022 Hemoglobin (Bld) [Mass/Vol] 13.5 g/dL 13.0-16.5 [facility] Work Phone: [phone] Blood lymphocytes/100 leukoc yteson 06-05-2022 Lymphocytes/100 WBC (Bld) 27.1 % 19-41 [facility] Work Phone: [phone] Blood monocytes/100 leukocyt eson 06-05-2022 Monocytes/100 WBC (Bld) 8.4 % 0-10 [facility] Work Phone: [phone] Blood platelet mean volumeon 06-05-2022 Platelet mean volume (Bld) [Entitic vol] 9.9 fL 6.2-12.0 [facility] Work Phone: [phone] Determination of erythrocyte mean corpuscular volume (MCV)on 06-05-2022 MCV (RBC) [Entitic vol] 88.5 fL 80-94 [facility] Work Phone: [phone] Hematocrit Auto (Bld) [Volum e fraction]on 06-05-2022 Hematocrit (Bld) [Volume fraction] 39.9 % 40-54 [facility] Work Phone: [phone] Laboratory - Chemistry and C hemistry - challengeon 06-05-2022 ALP [Catalytic activity/Vol] 53 U/L 45-117 [facility] Work Phone: [phone] ALT [Catalytic activity/Vol] 67 U/L 16-61 [facility] Work Phone: [phone] CO2 [Moles/Vol] 28.0 mmol/L 21.0-32.0 [facility] Work Phone: [phone] Globulin (S) [Mass/Vol] 3.1 g/dL 2.2-4.2 [facility] Work Phone: [phone] Urea nitrogen/Creatinine [Mass ratio] 20.8 mg/mg 10-20 [facility] Work Phone: [phone] Laboratory - Hematology and Cell countson 06-05-2022 Erythrocyte distribution width (RBC) [Entitic vol] 40.9 fL 35.1-43.9 [facility] Work Phone: [phone] Erythrocyte distribution width (RBC) [Ratio] 12.6 % 11.6-14.6 [facility] Work Phone: [phone] Immature granulocytes/100 WBC (Bld) 0.700 % 0.0-0.9 [facility] Work Phone: [phone] Comment on above: IG% - Immature Granu locytes (promyelocytes, myelocytes and metamyelocytes) > 1% indicates that a LEFT SHIFT is Present. MCH (RBC) [Entitic mass] 29.9 pg 27.0-32.0 [facility] Work Phone: [phone] Nucleated RBC/100 WBC (Bld) [Ratio] 0 % 0-5 [facility] Work Phone: [phone] MCHC Auto (RBC) [Mass/Vol]on 06-05-2022 MCHC (RBC) [Mass/Vol] 33.8 g/dL 32-36 [facility] Work Phone: No Panel Informationon 06-05 Estimated GFR (MDRD) Amer 115 mL/min >60 [facility] Work Phone: Comment on above: GFR Calc Estimated GFR (MDRD) Non-Af Amer 95 mL/min >60 [facility] Work Phone: Comment on above: Non- GFR Calc Urine Microalbumin/Creatinin e Ratio 24.4 mg/g CRE <30 [facility] Work Phone: Platelets bldon 06-05-2022 Platelets (Bld) [#/Vol] 214 10*3/uL 150-450 [facility] Work Phone: Serum or plasma albumin jony urement (mass/volume)on 06-05-2022 Albumin [Mass/Vol] 3.3 g/dL 3.2-5.0 [facility] Work Phone: Serum or plasma albumin/glob ulin mass ratioon 06-05-2022 Albumin/Globulin [Mass ratio] 1.1 {ratio} 0.9-2.4 [facility] Work Phone: Serum or plasma calcium jony urement (mass/volume)on 06-05-2022 Calcium [Mass/Vol] 8.5 mg/dL 8.5-10.1 [facility] Work Phone: [phone] Serum or plasma cholesterol in HDL measurement (mass/volume)on 06-05-2022 Cholesterol in HDL [Mass/Vol] 49 mg/dL >40 [facility] Work Phone: Comment on above: The drugs N-Acetylcy steine and Metamizole may falsely depress this assay. Reference Range HDL <40 mg/dL Low HDL Cholesterol HDL >or= 60 mg/dL High HDL Cholesterol Serum or plasma cholesterol in VLDL measurement (mass/volume)on 06-05-2022 Cholesterol in VLDL [Mass/Vol] 45 mg/dL 5-40 [facility] Work Phone: [phone] Serum or plasma creatinine m easurement (mass/volume)on 06-05-2022 Creatinine [Mass/Vol] 0.86 mg/dL 0.70-1.30 [facility] Work Phone: Comment on above: The validity of the calculated GFR & GFRAA in patients over 70 years has not been determined. Clinical correlation is essential. Serum or plasma low density lipoprotein (LDL) cholesterol measurement (mass/volume)on 06-05-2022 Cholesterol in LDL [Mass/Vol] 57 mg/dL 0-130 [facility] Work Phone: Serum or plasma urea nitroge n measurement (mass/volume)on 06-05-2022 Urea nitrogen [Mass/Vol] 18 mg/dL 7-18 [facility] Work Phone: Thin prep Papanicolaou smear with manual screeningon 06-05-2022 Thin prep Papanicolaou smear with manual screening 31 U/L 15-37 [facility] Work Phone: Thin prep Papanicolaou smear with manual screening 6 5-15 [facility] Work Phone: Thin prep Papanicolaou smear with manual screening 5.3 mg/L NO RANGE EST. [facility] Work Phone: Urine creatinine measurement (mass/volume)on 06-05-2022 Creatinine (U) [Mass/Vol] 21.70 mg/dL NO RANGE EST. [facility] Work Phone: Whole blood hemoglobin A1c/t otal hemoglobin ratio (mass fraction)on 06-05-2022 HbA1c (Bld) [Mass fraction] 6.5 % 3.8-5.6 [facility] Work Phone: Comment on above: Normal < 5.7 % Predi abetic 5.7 - 6.4 % Diabetic >or= 6.5 % Please note range changes. BONE MARROW ANALYSISon 04-17 ADDENDUM 1: Normal [facility] Comment on above: Order Comment: Speci men Type: BONE MARROW SPECIMENOrdering Facility: [facility] Address: [address] [place] [phone] Result Comment: Spec ial staining with Congo red was performed on B1 which showed no evidence of amyloid. Addendum electronically signed by Cosmo Spencer MD on 11/12/2022 at 3:40 PM Performed By: #### B MRT ####[facility] [id number] [place] [id number] [facility] CASE REPORT Normal [facility] Comment on above: Order Comment: Karan dent Type: BONE MARROW SPECIMENOrdering Facility: [facility] Address: [address] [place], [place] [address] Result Comment: Bone Marrow Pathology Report Case: [id number] Authorizing Provider: Carlos Storey DO Collected: 04/17/2022 11:10 AM Ordering Location: [facility] Received: 04/17/2022 11:47 AM RADIOLOGY Pathologist: Cosmo Spencer MD Specimens: A) - BONE MARROW ASPIRATE RIGHT POSTERIOR ILIAC CREST B) - BONE MARROW BIOPSY RIGHT POSTERIOR ILIAC CREST C) - BONE MARROW CLOT RIGHT POSTERIOR ILIAC CREST D) - Peripheral blood smear Performed By: #### B MRT ####[facility] [id number] [address] DIAGNOSIS COMMENT Normal [facility] Comment on above: Order Comment: Karan dent Type: BONE MARROW SPECIMENOrdering Facility: [facility] Address: [address] [place] [address] Result Comment: This 61-year-old gentleman presented with a recent [...] clinical, radiographic, and laboratory findings is recommended. Laboratory Developed Test (LDT) Disclaimer: Performance characteristics of immunohistochemical, immunofluorescent and chromogenic in-situ hybridization tests have been determined by the performing laboratory within [facility]???s [facility] Pathology and Laboratory Medicine [place] ([facility], [facility], [facility] or [facility]) in a manner consistent with CLIA requirements. One or more of these tests have not been cleared or approved by the FDA. [facility] is regulated under CLIA as qualified to perform high-complexity testing. These tests are used for clinical purposes. They should not be regarded as investigational or for research. Positive and negative controls stain appropriately. Performed By: #### B MRT ####[facility] [id number] [address] FINAL DIAGNOSIS Normal [facility] Comment on above: Order Comment: Speci men Type: BONE MARROW SPECIMENOrdering Facility: [facility] Address: [address] [address] Result Comment: A, B , and C. Bone marrow, right, aspirate, core biopsy, and clot section: - Normocellular bone marrow with trilineage hematopoiesis - Normal myeloid to erythroid ratio - Adequate megakaryocytes with normal morphology - Decreased iron stores with no ring sideroblasts - Small lymphoid aggregates, favored benign - See comment D. Peripheral blood, smear: - Unremarkable /zp Performed By: #### B MRT ####[facility]IA [id number] [address] FINAL PERFORMING LAB Normal [facility] Comment on above: Order Comment: Speci men Type: BONE MARROW SPECIMENOrdering Facility: [facility] Address: [address] [address] Result Comment: Diag nostic interpretation performed at [facility], [address] [id number] CLIA# [id number] French Comber: Reilly Benavidez M.D. Performed By: #### B MRT ####[facility] [id number] [address] OF [place] GROSS DESCRIPTION Normal [facility] Comment on above: Order Comment: Speci men Type: BONE MARROW SPECIMENOrdering Facility: [facility] Address: [address] [place] [address] Result Comment: A. B ONE MARROW ASPIRATE RIGHT POSTERIOR ILIAC CREST. Received are air-dried bone marrow aspirate smears. Submitted for light microscopy. B. BONE MARROW BIOPSY RIGHT POSTERIOR ILIAC CREST. Received in formalin are multiple of cylindrical tissue aggregating to 1.9 x 0.2 x 0.2 cm, [place] to red-brown and of a firm consistency. Totally submitted in formalin in one cassette after decalcification. C. BONE MARROW CLOT RIGHT POSTERIOR ILIAC CREST. Received in formalin is a segment of red-brown hemorrhagic material measuring 2.7 x 1.2 x 0.3 cm. Totally submitted in one cassette. D. Peripheral blood smear. Received is a peripheral blood smear. Submitted for light microscopy. Gross examination performed at [facility], [address] [place] [address] 04/17/2022 7:43 PM Performed By: #### B MRT ####[facility] [id number] [address] MICROSCOPIC DESCRIPTION Normal [facility] Comment on above: Order Comment: Speci men Type: BONE MARROW SPECIMENOrdering Facility: [facility] Address: [address] [phone] Result Comment: MEET PHERAL BLOOD: CBC 04/17/22 Diff Automated WBC 10.95 k/uL Neut% 65.9 % Hemoglobin 13.6 g/dL Lymph% 22.3 % MCV 86.4 fL Sullivan% 8.5 % RDW-CV 14.2 % Eosin% 1.6 % Platelet Count 268 k/uL Baso% 0.9 % Other: Ig% 0.8 Morphology/Interpretation: Unremarkable BONE MARROW ASPIRATE: Result Normal Range 1 % Blasts 0-2 1 % Promyelocytes 1-5 52 % Myelos/Metas/Bands/Segs 32-72 3 % Eosinophils 1-6 0 % Basophils 0-1 1 % Monocytes 0-4 32 % Erythroid precursors 13-37 10 % Lymphocytes 7-23 0 % Plasma cells 0-2 Myeloid/Erythro (1.5-4): 1.8 Cells counted: 300 Iron stain result: Decreased, no significant ringed sideroblasts seen Specimen Quality: Adequate, cellular with spicules Megakaryocytes: Present with unremarkable morphology Erythropoiesis: Progressive maturation Granulopoiesis: Progressive maturation BONE MARROW BIOPSY: Adequacy: Adequate Cellularity: Normal, 30% ME ratio: Normal Hematopoiesis: Trilineage hematopoiesis Megakaryocytes: Adequate Megakaryocyte morphology: Unremarkable Lymphoid infiltrate: Not identified Bone trabeculae: Unremarkable Other: Immunohistochemistry was performed on the core biopsy and includes stains for CD138, kappa, lambda, CD3, and CD20. Staining showed scattered interstitial plasma cells that are not appreciably increased. The plasma cells show a polytypic pattern of kappa and lambda staining. There is an unremarkable admixture of CD3 Tcells and CD20 Bcells. Small lymphoid aggregates are present composed of an unremarkable admixture of Tcells and Bcells. CLOT SECTION: Marrow particles: Many Morphology: Similar to biopsy Other: Immunohistochemistry was performed on the clot section and includes stains for CD3 and CD20. Staining showed an unremarkable admixture of CD3 and CD20 Bcells. ANCILLARY TESTS: Flow cytometry: No discreet plasma cell population identified Cytogenetics: Pending FISH: Not performed Molecular: Buffy coat collected Performed By: #### B MRT ####[facility]BEC[facility] [id number] [place] [address] [place] BONE MARROW CHROMOSOME ANALo n 04-17-2022 CHROMOSOME BM Normal [facility] Comment on above: Order Comment: Speci men Type: BONE MARROW SPECIMENOrdering Facility: [facility] Address: [address] [place] [address] Result Comment: Mason quiroz Accession Number: [id number] Doctor: CARLOS STOREY Pathologist: [facility] No: [id number] Clinical diagnosis: Biclonal gammopathy Specimen Type: Bone marrow Number of cells counted: 20 Number of cells analyzed: 20 Number of cells karyotyped: 20 Banding resolution: 400 Banding method: G-banding DIAGNOSIS: 46,XY[20] INTERPRETATION: Normal, male karyotype COMMENT: Ten metaphase cells were analyzed from the culture stimulated with ODN and ten metaphase cells were analyzed from the 24 hour unstimulated culture. Twenty cells analyzed showed a 46,XY karyotype. There was no significant numerical chromosome abnormality and no structural change detected within the limits of resolution. Clinical and pathologic correlation is recommended. As reviewed by Ira Crandall, PhD, FACMG Performed by [facility] Pathology and Laboratory Medicine [place] Division of Molecular Pathology Cytogenetics Lab, [place] [place] [address] [place] [address] Toll free: Performed By: #### [facility] ####[facility] LIMSCLIA [id number] [place] [address] [place] CBC W Auto Differential pane l (Bld)on 04-17-2022 Basophils (Bld) [#/Vol] 0.10 10*3/uL Normal <0.11 [facility] Comment on above: Order Comment: Speci men Type: BLOOD SPECIMEN [facility] Address: [address] [place] [address] Performed By: #### 5 7021-8 #### [facility] CLIA [id number] [address] [place] [address] [place] Basophils/100 WBC (Bld) 0.9 % Normal [facility] Comment on above: Order Comment: Speci men Type: BLOOD SPECIMEN [facility] Address: [address] [place] [address] Performed By: #### 5 7021-8 #### [facility] CLIA [id number] [address] [place] [address] [place] Differential cell count method Nom (Bld) Auto Normal [facility] Comment on above: Order Comment: Speci men Type: BLOOD SPECIMEN [facility] Address: [address] [place] [address] Performed By: #### 5 7021-8 #### [facility] CLIA [id number] [place] [address] [place] Eosinophils (Bld) [#/Vol] 0.17 10*3/uL Normal <0.46 [facility] Comment on above: Order Comment: Speci men Type: BLOOD SPECIMEN [facility] Address: [address] [place] [address] Performed By: #### 5 7021-8 #### [facility] CLIA [id number] [address] [place] [address] [place] Eosinophils/100 WBC (Bld) 1.6 % Normal [facility] Comment on above: Order Comment: Speci men Type: BLOOD SPECIMEN [facility] Address: [address] [place] [address] Performed By: #### 5 7021-8 #### [facility] CLIA [id number] [address] [place] [address] [place] Erythrocyte distribution width (RBC) [Ratio] 14.2 % Normal 11.5-15.0 [facility] Comment on above: Order Comment: Speci men Type: BLOOD SPECIMEN [facility] Address: [address] [place] [address] Performed By: #### 5 7021-8 #### [facility] CLIA [id number] [address] [place] [address] [place] Hematocrit (Bld) [Volume fraction] 39.5 % Normal 39.0-51.0 [facility] Comment on above: Order Comment: Speci men Type: BLOOD SPECIMEN [facility] Address: [address] [place] [address] Performed By: #### 5 7021-8 #### [facility] CLIA [id number] [address] [place] [address] [place] Hemoglobin (Bld) [Mass/Vol] 13.6 g/dL Normal 13.0-17.0 [facility] Comment on above: Order Comment: Speci men Type: BLOOD SPECIMEN [facility] Address: [address] [place] [address] Performed By: #### 5 7021-8 #### [facility] CLIA [id number] [address] [place] [address] IMMATURE GRAN % 0.8 % Normal [facility] Comment on above: Order Comment: Speci men Type: BLOOD SPECIMEN [facility] Address: [address] [place] [address] Performed By: #### 5 7021-8 #### [facility] CLIA [id number] [address] [place] [address] [place] IMMATURE GRAN ABS 0.09 k/uL Normal <0.10 [facility] Comment on above: Order Comment: Speci men Type: BLOOD SPECIMEN [facility] Address: [address] [place] [address] Performed By: #### 5 7021-8 #### [facility] CLIA [id number] [address] [place] [address] [place] Lymphocytes (Bld) [#/Vol] 2.44 10*3/uL Normal 1.00-4.00 [facility] Comment on above: Order Comment: Speci men Type: BLOOD SPECIMEN [facility] Address: [address] [place] [address] Performed By: #### 5 7021-8 #### [facility] CLIA [id number] [address] [place] [address] [place] Lymphocytes/100 WBC (Bld) 22.3 % Normal [facility] Comment on above: Order Comment: Speci men Type: BLOOD SPECIMEN [facility] Address: [address] [place] [address] Performed By: #### 5 7021-8 #### [facility] CLIA [id number] [address] [place] [address] [place] MCH (RBC) [Entitic mass] 29.8 pg Normal 26.0-34.0 [facility] Comment on above: Order Comment: Speci men Type: BLOOD SPECIMEN [facility] Address: [address] [place] [address] Performed By: #### 5 7021-8 #### [facility] CLIA [id number] [address] [place] [address] [place] MCHC (RBC) [Mass/Vol] 34.4 g/dL Normal 30.5-36.0 [facility] Comment on above: Order Comment: Speci men Type: BLOOD SPECIMEN [facility] Address: [address] [place] [address] Performed By: #### 5 7021-8 #### [facility] CLIA [id number] [address] [place] [address] [place] MCV (RBC) [Entitic vol] 86.4 fL Normal 80.0-100.0 [facility] Comment on above: Order Comment: Speci men Type: BLOOD SPECIMEN [facility] Address: [address] [place] [address] Performed By: #### 5 7021-8 #### [facility] CLIA [id number] [address] [place] [address] [place] Monocytes (Bld) [#/Vol] 0.93 10*3/uL High <0.87 [facility] Comment on above: Order Comment: Speci men Type: BLOOD SPECIMEN [facility] Address: [address] [place] [address] Performed By: #### 5 7021-8 #### [facility] CLIA [id number] [address] [place] [address] OF [place] Monocytes/100 WBC (Bld) 8.5 % Normal [facility] Comment on above: Order Comment: Speci men Type: BLOOD SPECIMEN [facility] Address: [address] [place] [address] Performed By: #### 5 7021-8 #### [facility] CLIA [id number] [address] [place] [address] [place] Neutrophils (Bld) [#/Vol] 7.22 10*3/uL Normal 1.45-7.50 [facility] Comment on above: Order Comment: Speci men Type: BLOOD SPECIMEN [facility] Address: [address] [place] [address] Performed By: #### 5 7021-8 #### [facility] CLIA [id number] [address] [place] [address] [place] Neutrophils/100 WBC (Bld) 65.9 % Normal [facility] Comment on above: Order Comment: Speci men Type: BLOOD SPECIMEN [facility] Address: [address] [place] [address] Performed By: #### 5 7021-8 #### [facility] CLIA [id number] [address] [place] [address] [place] Nucleated RBC (Bld) [#/Vol] 10*3/uL Normal <0.01 [facility] Comment on above: Order Comment: Speci men Type: BLOOD SPECIMEN [facility] Address: [address] [place] [address] Performed By: #### 5 7021-8 #### [facility] CLIA [id number] [address] [place] [address] [place] Nucleated RBC/100 WBC (Bld) [Ratio] 0.0 /100 WBC Normal [facility] Comment on above: Order Comment: Speci men Type: BLOOD SPECIMEN [facility] Address: [address] [place] [address] Performed By: #### 5 7021-8 #### [facility] CLIA [id number] [address] [place] [address] [place] Platelet mean volume (Bld) [Entitic vol] 10.3 fL Normal 9.0-12.7 [facility] Comment on above: Order Comment: Speci men Type: BLOOD SPECIMEN [facility] Address: [address] [place] [address] Performed By: #### 5 7021-8 #### [facility] CLIA [id number] [address] [place] [address] [place] Platelets (Bld) [#/Vol] 268 10*3/uL Normal 150-400 [facility] Comment on above: Order Comment: Karan dent Type: BLOOD SPECIMEN [facility] Address: [address] [place] [address] Performed By: #### 5 7021-8 #### [facility] CLIA [id number] [address] [place] [address] [place] RBC (Bld) [#/Vol] 4.57 10*6/uL Normal 4.20-6.00 [facility] Comment on above: Order Comment: Speci men Type: BLOOD SPECIMEN [facility] Address: [address] [place] [address] Performed By: #### 5 7021-8 #### [facility] CLIA [id number] [address] [place] [address] [place] WBC (Bld) [#/Vol] 10.95 10*3/uL Normal 3.70-11.00 [facility] Comment on above: Order Comment: Karan dent Type: BLOOD SPECIMEN [facility] Address: [address] [place] [address] Performed By: #### 5 7021-8 #### [facility] CLIA [id number] [address] [place] [address] [address] [facility] CT BIOPSY BONE MARROW (HEMO) on 04-17-2022 CT BIOPSY BONE MARROW (HEMO) * * *Final Report* * * DATE OF EXAM: Apr 17 2022 11:18AM [facility] 2037 - CT BIOPSY BONE MARROW (HEMO) / PROCEDURE REASON: BONE MARROW * * * * Physician Interpretation * * * * CT-GUIDED BONE MARROW BIOPSY INDICATION: The patient is a 61 years old Male who presented with BONE MARROW. CONSENT: The risks, benefits, treatment options, potential complications and personnel to be involved were discussed (including the risks of radiation exposure, contrast and anesthesia administration) with the All questions were answered and consent was obtained from the patient. The patient indicated willingness to proceed. GENERAL: a) Medication Reconciliation: The patient's medications and allergies were reviewed in the electronic medical record and reconciled to the proposed procedure/treatment. Pre-procedure Sign-in: Safety Checklist Performed Yes b) Positioning: The patient was placed prone on the table. c) The dorsal soft tissues was then sterilely prepped and draped. d) Time Out: A time out was performed immediately prior to procedure start with the nursing, anesthesia and interventional team, correctly identifying the patient name, date of , procedure, anatomy (including marking of site and side), patient position, procedure consent form, relevant diagnostic and radiology test results, antibiotic administration, safety precautions, and procedure-specific equipment needs. Time Out / Procedure Start Time: 11:10 AM e) Anesthesia Type: moderate procedural sedation. Local anesthesia: 5 mL 1% lidocaine. f) Anesthesia was administered for a total of 7 minutes using 2 mg Versed and 100 mcg fentanyl g) Patient monitoring: Performed by registered nurse. PROCEDURE: a) Procedure Details: Under CT guidance, biopsy/aspiration needle was advanced into the posterior aspect of the right iliac bone, through which bone marrow aspiration was performed and a single core biopsy sample was obtained via a single pass. Needle was removed. b) Devices used: Biopsy/Aspiration Needle: 11 Gauge On Control c) Estimated Blood Loss: Minimal d) Number and Type of Removed Specimens: 15 cc of aspirate, one core biopsy CONTRAST CT imaging was performed without contrast. RADIATION DOSE a) Image guidance: CT guidance b) Radiation: CT was performed using an Dose-Length Product (DLP) of 422 mGy*cm CT Dose Reduction Employed: Automated exposure control (AEC) POST PROCEDURE: a) Hemostasis: Hemostasis was achieved using light manual compression. b) Sign-out: Communication Performed Yes c) Procedure End Time: 1118 d) Conclusion: The patient was transferred to the biopsy recovery room in stable condition. COMPLICATIONS: a) Significant Patient Complication: None b) Complications during the procedure: None RESULTS: Aspirate and core bone marrow specimens obtained. IMPRESSION: SUCCESSFUL CT-GUIDED BONE MARROW BIOPSY. Attending Radiologist: Delmer Garduno DO The procedure was performed by the: The attending radiologist, without an trust administrative assistant. The attending radiologist performed the following procedural activities: The entire procedure. Solar Manufacturer'S Representative: TORRIE Transcribe Date/Time: Apr 17 2022 11:32A Dictated by : DELMER GARDUNO MD This examination was interpreted and the report reviewed and electronically signed by: DELMER GARDUNO MD on Apr 17 2022 11:33AM EST [id number] [facility] DNA EXTRACTION BONE MARROW ( BUFFY COAT)on 04-17-2022 DNA EXTRACTION BONE MARROW (BUFFY COAT) Normal [facility] Comment on above: Order Comment: Karan dent Type: BONE MARROW SPECIMEN Ordering Facility: [facility] Address: [address] [place] [address] Result Comment: This specimen was received and successfully processed for future DNA purification should molecular testing be needed. Specimens will be available for 3 years from date of collection. To order testing on this specimen for [facility] patients, please place an Lift order for DNA and RNA Clinical Testing ([id number]). To order testing for patients outside of the [facility] system, please request DNA and RNA for Clinical Testing, order code [id number]. If additional paperwork is required for testing, please send completed forms via secure email to . Performed By: #### N UCBUF #### [facility] CLIA [id number] [address] [place] [address] [place] FLOW CYTOMETRY BONE MARROW H OLD (BMHOLD)on 04-17-2022 FLOW CYTOMETRY ORDER STATUS See Results in chart under F case ID [facility] Comment on above: Order Comment: Karan dent Type: BONE MARROW SPECIMENOrdering Facility: [facility] Address: [address] [place] [address] Performed By: #### B MHOLD ####[facility] [id number] [address] [place] FLOW CYTOMETRY BONE MARROW R EFLEXon 04-17-2022 CASE REPORT [facility] Comment on above: Order Comment: Karan dent Type: BONE MARROW SPECIMEN Ordering Facility: [facility] Address: [address] [place] [address] Result Comment: Flow Cytometry Case: [id number] Authorizing Provider: Carlos Storey DO Collected: 04/17/2022 11:17 AM Ordering Location: [facility]AL Received: 04/17/2022 02:57 PM RADIOLOGY Pathologist: Cosmo Spencer MD Specimen: Bone Marrow Performed By: #### B MHOLDRFLX #### [facility] CLIA [id number] [address] [place] [address] [place] GROSS DESCRIPTION A. Bone Marrow. Normal [facility] Comment on above: Order Comment: Karan dent Type: BONE MARROW SPECIMEN Ordering Facility: [facility] Address: [address] [place] [address] Result Comment: RECE IVED 3 MLS BONE MARROW ASPIRATE IN A NA HEP CONTAINER Performed By: #### B MHOLDRFLX #### [facility] CLIA [id number] [address] [place] [address] OF [place] INTERPRETATION Normal [facility] Comment on above: Order Comment: Karan dent Type: BONE MARROW SPECIMEN Ordering Facility: [facility] Address: [address] [place] [address] Result Comment: Spec imen type: Bone Marrow Morphology comments: Please see bone marrow report. FLOW CYTOMETRY BONE MARROW IMMUNOPHENOTYPING Marker Normal Cell Type Result (Plasma cells) CD19 B-cells Not Detected CD38 Activation Not Detected CD45 Frost-leukocyte Not Detected CD138 Plasma Cells Not Detected sCD56 Not Detected cKappa/cLambda B-cells See Interpretation FLOW CYTOMETRY BONE MARROW IMMUNOPHENOTYPING Marker Normal Cell Type Result CD3 T-cells Normal Pattern CD4 T-cell subset Normal Pattern CD5 T-cells Normal Pattern CD7 T/NK-cells Normal Pattern CD8 T-cell subset Normal Pattern CD13 Myeloid Normal Pattern CD16/56 NK cells Normal Pattern CD19 B-cells Normal Pattern CD34 Blasts Normal Pattern CD45 Frost-leukocyte Normal Pattern kappa/lambda B-cells Polytypic Flow cytometric analysis of the bone marrow/peripheral blood/fluid reveals that 16% of total events have the CD45 and light scatter properties of lymphocytes. The lymphocytes are composed of T-cells (76%, CD4:CD8 ratio = 2.13), NK cells (1%), and polytypic B-cells. Granulocytic elements are 72% of events. Blasts are not increased. Flow cytometric analysis of the Bone Marrow reveals no discreet population of plasma cells based upon CD38 and CD45 properties. Final Impression: There is no immunophenotypic evidence of involvement by a plasma cell neoplasm. Correlation with the clinical, laboratory, radiologic, and bone marrow histopathologic findings is suggested. ANALYTE SPECIFIC REAGENT (ASR) DISCLAIMER This test was developed and its performance characteristics determined by [facility]???s [facility] [place] ([facility] It has not been cleared or approved by the FDA. [facility] is regulated under CLIA as qualified to perform high-complexity testing. This test is used for clinical purposes. It should not be regarded as investigational or for research. Diagnostic interpretation performed at [facility], [address] [place] [address] CLIA# [id number] French Comber: Reilly Benavidez M.D. Performed By: #### B MHOLDRFLX #### [facility] CLIA [id number] [address] [place] [address] HISTORY PHYSICALon HISTORY PHYSICAL HNO ID: [id number] Author: Delmer Garduno DO, DO Service: Radiology Author Type: Physician Type: HANDP Filed: 04/17/2022 10:22 AM Note Text: UPDATED HISTORY AND PHYSICAL EXAMINATION SERVICE DATE: 04/17/2022 SERVICE TIME: 10:22 AM PHYSICAL EXAM MUST BE COMPLETED ON ADMISSION The History and Physical (completed in the past 30 days) has been reviewed and the patient has been examined. The contents accurately reflect the patient's condition with the following additions or revisions since the HANDP was completed. Examination indicates no changes. This HANDP can be found in the Electronic Medical Record dated 04/02/2022. SIGNATURE: Delmer Garduno DO PATIENT NAME: Niko Huitron DATE: April 17, 2022 TIME: 10:22 AM Normal [facility] NURSING PROGon 04-17-2022 NURSING PROG HNO ID: [id number] Author: Katherine Sinclair RN Service: Radiology Author Type: Registered Nurse Type: Nursing Progress Note Filed: 04/17/2022 9:43 AM Note Text: PATIENT EDUCATION TOPIC: PROCEDURE / SURGERY: Procedure/Surgery: Bone Marrow Biopsy PATIENT NAME: Niko Huitron PATIENT LOCATION: INTERVENTIONAL RADIOL* READINESS TO LEARN COGNITIVE ABILITY: Alert and oriented MOTIVATION TO LEARN: Interested FAMILY SUPPORT: High - Very involved in pt care INSTRUCTION PROVIDED TO: Patient and family member PATIENT LEARNS BEST BY: Multiple Methods FACTORS AFFECTING LEARNING: None PHYSICAL LIMITATIONS AFFECTING LEARNING: None LEARNING RESPONSE DIAGNOSIS: ADULT: Bone Marrow Biopsy PATIENT/FAMILY RESPONSE: Verbalizes understanding of: POST-PROCEDURE INSTRUCTIONS-Correct actions to take to reduce post procedure complications PRE-PROCEDURE INSTRUCTIONS-Correct action to take to follow pre-procedure instructions METHOD OF INSTRUCTION: Individual instruction Written instruction - handouts Verbal instruction FOLLOW-UP PLAN: Follow-up with Primary Care INSTRUCTIONAL AIDS USED: NA SUPPLEMENTAL MATERIAL PROVIDED TO PATIENT: Handouts to be given at discharge from PACU REFERRAL (RECOMMENDATION): None Electronically Signed By: Katherine Sinclair [facility] PT EDon 04-17-2022 PT ED HNO ID: [id number] Author: Karli Light RN Service: Nursing Author Type: Registered Nurse Type: Patient Education Filed: 04/17/2022 12:28 PM Note Text: PATIENT EDUCATION TOPIC: PROCEDURE / SURGERY: Post Procedure Teaching: Med Administration, Symptom Management and Wound Care PATIENT NAME: Niko Huitron PATIENT LOCATION: INTERVENTIONAL RADIOL* READINESS TO LEARN COGNITIVE ABILITY: Alert and oriented MOTIVATION TO LEARN: Interested FAMILY SUPPORT: High - Very involved in pt care INSTRUCTION PROVIDED TO: Patient and family member PATIENT LEARNS BEST BY: Written Instruction - Hand-outs FACTORS AFFECTING LEARNING: None PHYSICAL LIMITATIONS AFFECTING LEARNING: None LEARNING RESPONSE DIAGNOSIS: ADULT: Well Adult PATIENT/FAMILY RESPONSE: Verbalizes understanding of: POST-PROCEDURE INSTRUCTIONS-Correct actions to take to reduce post procedure complications METHOD OF INSTRUCTION: Written instruction - handouts FOLLOW-UP PLAN: Complete - No need for follow-up INSTRUCTIONAL AIDS USED: NA SUPPLEMENTAL MATERIAL PROVIDED TO PATIENT: Post sedation instructions given Procedure discharge instructions REFERRAL (RECOMMENDATION): None Electronically Signed By: Karli Light [facility] PT panel Coag (PPP)on 2021 INR Coag (PPP) [Relative time] 0.9 {INR} Normal 0.9-1.3 [facility] Comment on above: Order Comment: Karan dent Type: BLOOD SPECIMEN Ordering Facility: [facility] Address: [address] [place] [address] Result Comment: Nimisha min K Antagonist (VKA) Therapeutic Range: INR 2 to 3 (Target INR of 2.5) Note: For patients treated with VKA drugs, such as warfarin, the [employer] 2012 Guideline recommends a therapeutic INR range of 2 to 3 (target INR of 2.5). This recommendation includes high-risk patients with antiphospholipid syndrome with previous arterial or venous thromboembolism, current-generation mechanical or bioprosthetic aortic heart valve replacement. Note: Patients with mechanical aortic valve replacement and additional risk factors for thromboembolic events (atrial fibrillation, previous thromboembolism, LV dysfunction, hypercoagulable conditions) or an older generation mechanical AVR (i.e., ball in-Cage) or any mechanical MVR should have a INR therapeutic range of 2.5 to 3.5 (target INR of 3). Kasia BYRNES, et al. Chest 2012, 141:7S-47S Deya RA, et al. [facility] 2017, 70: 252-289 Performed By: #### 3 4528-0 #### [facility] CLIA [id number] [place] [address] [place] PT Coag (PPP) [Time] 10.1 s Normal 9.7-13.0 [facility] Comment on above: Order Comment: Karan dent Type: BLOOD SPECIMEN Ordering Facility: [facility] Address: [address] [place] [address] Performed By: #### 3 4528-0 #### [facility] CLIA [id number] [address] [place] Andrew 04-08-2022 TAI Telephone (IRR) [facility] ([id number]) 1960 M Date Time Provider Department 04/08/22 LIV BROWN IRRFV During your visit today, we recorded the following information about you: Liv Brown RN 04/08/2022 9:44 AM Signed You are scheduled for a bone marrow biopsy, On March at 11 am. You are to arrive at 9:30 am and Report to [facility] First Floor Radiology Registration Desk. You [...] any of following medications? Plavix. Per the [facility] [place] Meet-Procedure Coagulation Guidelines this medication does not need to be held for a bone marrow biopsy. Labs: Lab-work needs to be drawn? Yes, an INR will be drawn the day of the procedure. Please check in at the Radiology Registration Desk first and they will direct you to the lab. 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 Private car. You will need a responsible adult to accompany you to and from the procedure. Your driver education road instructor is required to stay with you until you are taken into the procedure room. Allergies As of Date: 04/08/2022 (No Known Allergies) Date Reviewed: 04/02/2022 Reviewed by: Carlos Storey DO - Fully Assessed Reason for Visit: Radiology Pre Procedure Instructions [1506] Prescriptions as of 04/08/2022 - traZODone (DESYREL) 100 mg tablet Take two tablets by mouth at bedtime. - gabapentin (NEURONTIN) 400 mg capsule Take 400 mg by mouth three times daily. - atorvastatin (LIPITOR) 40 mg tablet Take 40 mg by mouth once daily. - clopidogrel (PLAVIX) 75 mg tablet Take 75 mg by mouth once daily. - metoprolol succinate ER (TOPROL XL) 100 mg Take 100 mg by mouth once daily. - amLODIPine (NORVASC) 10 mg tablet Take 10 mg by mouth once daily. - hydroCHLOROthiazide (HYDRODIURIL, ESIDRIX) 25 mg tablet Take 25 mg by mouth once daily. - aspirin, enteric coated (ASPIRIN, ENTERIC COATED) 81 mg EC tablet Take 81 mg by mouth once daily. - multivitamin tablet Take 1 tablet by mouth once daily. - acetaminophen (TYLENOL EXTRA STRENGTH) 500 mg tablet Take 1,000 mg by mouth every 6 hours as needed. - lithium carbonate 300 mg tablet Take 300 mg by mouth three times daily. Problem List As Of Date 04/08/2022 Noted Resolved Essential hypertension [I10] 07/16/2017 Encounter Status:[facility]IV [facility]IRRFV[facility] NIKO HUITRON ([id number]) 1960 M Date Time Provider Department 04/07/22 KATHERINE SINCLAIR IRRFV During your visit today, we recorded the following information about you: Katherine Sinclair RN 04/07/2022 2:05 PM Signed Returned pt's message left earlier today. No answer, left message with call back information. Allergies As of Date: 04/07/2022 (No Known Allergies) Date Reviewed: 04/02/2022 Reviewed by: Carlos Storey DO - Fully Assessed Reason for Visit: Returning Patient's Call [408] Prescriptions as of 04/07/2022 - traZODone (DESYREL) 100 mg tablet Take two tablets by mouth at bedtime. - gabapentin (NEURONTIN) 400 mg capsule Take 400 mg by mouth three times daily. - atorvastatin (LIPITOR) 40 mg tablet Take 40 mg by mouth once daily. - clopidogrel (PLAVIX) 75 mg tablet Take 75 mg by mouth once daily. - metoprolol succinate ER (TOPROL XL) 100 mg Take 100 mg by mouth once daily. - amLODIPine (NORVASC) 10 mg tablet Take 10 mg by mouth once daily. - hydroCHLOROthiazide (HYDRODIURIL, ESIDRIX) 25 mg tablet Take 25 mg by mouth once daily. - aspirin, enteric coated (ASPIRIN, ENTERIC COATED) 81 mg EC tablet Take 81 mg by mouth once daily. - multivitamin tablet Take 1 tablet by mouth once daily. - acetaminophen (TYLENOL EXTRA STRENGTH) 500 mg tablet Take 1,000 mg by mouth every 6 hours as needed. - lithium carbonate 300 mg tablet Take 300 mg by mouth three times daily. Problem List As Of Date 04/07/2022 Noted Resolved Essential hypertension [I10] 07/16/2017 Encounter Status:Closed by KATHERINE SINCLAIR on 04/07/22 [facility] CNPN Telephone (IRRFV) NIKO HUITRON ([id number]) 1960 M Date Time Provider Department 04/07/22 KATHERINE SINCLAIR IRRFV During your visit today, we recorded the following information about you: Allergies As of Date: 04/07/2022 (No Known Allergies) Date Reviewed: 04/02/2022 Reviewed by: Carlos Storey DO - Fully Assessed Reason for Visit: Returning Patient's Call [408] Prescriptions as of 04/07/2022 - traZODone (DESYREL) 100 mg tablet Take two tablets by mouth at bedtime. - gabapentin (NEURONTIN) 400 mg capsule Take 400 mg by mouth three times daily. - atorvastatin (LIPITOR) 40 mg tablet Take 40 mg by mouth once daily. - clopidogrel (PLAVIX) 75 mg tablet Take 75 mg by mouth once daily. - metoprolol succinate ER (TOPROL XL) 100 mg Take 100 mg by mouth once daily. - amLODIPine (NORVASC) 10 mg tablet Take 10 mg by mouth once daily. - hydroCHLOROthiazide (HYDRODIURIL, ESIDRIX) 25 mg tablet Take 25 mg by mouth once daily. - aspirin, enteric coated (ASPIRIN, ENTERIC COATED) 81 mg EC tablet Take 81 mg by mouth once daily. - multivitamin tablet Take 1 tablet by mouth once daily. - acetaminophen (TYLENOL EXTRA STRENGTH) 500 mg tablet Take 1,000 mg by mouth every 6 hours as needed. - lithium carbonate 300 mg tablet Take 300 mg by mouth three times daily. Problem List As Of Date 04/07/2022 Noted Resolved Essential hypertension [I10] 07/16/2017 Encounter Status:Closed by KATHERINE SINCLAIR on 04/07/22 [facility] 04-04-2022 CNPN Telephone (IRRFV) NIKO HUITRON ([id number]) 1960 M Date Time Provider Department 04/04/22 KATHERINE SINCLAIR IRR During your visit today, we recorded the following information about you: Katherine Sinclair RN 04/04/2022 9:35 AM Signed Left message with call back information Allergies As of Date: 04/04/2022 (No Known Allergies) Date Reviewed: 04/02/2022 Reviewed by: Carlos Storey DO - Fully Assessed Reason for Visit: Appointment [186] Prescriptions as of 04/04/2022 - traZODone (DESYREL) 100 mg tablet Take two tablets by mouth at bedtime. - gabapentin (NEURONTIN) 400 mg capsule Take 400 mg by mouth three times daily. - atorvastatin (LIPITOR) 40 mg tablet Take 40 mg by mouth once daily. - clopidogrel (PLAVIX) 75 mg tablet Take 75 mg by mouth once daily. - metoprolol succinate ER (TOPROL XL) 100 mg Take 100 mg by mouth once daily. - amLODIPine (NORVASC) 10 mg tablet Take 10 mg by mouth once daily. - hydroCHLOROthiazide (HYDRODIURIL, ESIDRIX) 25 mg tablet Take 25 mg by mouth once daily. - aspirin, enteric coated (ASPIRIN, ENTERIC COATED) 81 mg EC tablet Take 81 mg by mouth once daily. - multivitamin tablet Take 1 tablet by mouth once daily. - acetaminophen (TYLENOL EXTRA STRENGTH) 500 mg tablet Take 1,000 mg by mouth every 6 hours as needed. - lithium carbonate 300 mg tablet Take 300 mg by mouth three times daily. Problem List As Of Date 04/04/2022 Noted Resolved Essential hypertension [I10] 07/16/2017 Encounter Status:Closed by KATHERINE SINCLAIR on 04/04/22 Normal [facility] CNPN Telephone (IRRFV) NIKO HUITRON ([id number]) 1960 M Date Time Provider Department 04/04/22 KATHERINE SINCLAIR IRRFV During your visit today, we recorded the following information about you: Katherine Sinclair RN 04/04/2022 11:26 AM Signed You are scheduled for a bone marrow biopsy on April 14. You are to arrive at 8:30 am and report to [facility] First Floor Radiology Registration Desk. You [...] any of following medications? Plavix. Per the [facility] [place] Meet-Procedure Coagulation Guidelines this medication does not need to be held for a bone marrow biopsy. Labs: Lab-work needs to be drawn? Yes, an INR will be drawn the day of the procedure. Please check in at the Radiology Registration Desk first and they will direct you to the lab. 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 Private car. You will need a responsible adult to accompany you to and from the procedure. Please call [phone] with any questions or if you need to reschedule. Allergies As of Date: 04/04/2022 (No Known Allergies) Date Reviewed: 04/02/2022 Reviewed by: Carlos Storey DO - Fully Assessed Reason for Visit: Appointment [186] Prescriptions as of 04/04/2022 - traZODone (DESYREL) 100 mg tablet Take two tablets by mouth at bedtime. - gabapentin (NEURONTIN) 400 mg capsule Take 400 mg by mouth three times daily. - atorvastatin (LIPITOR) 40 mg tablet Take 40 mg by mouth once daily. - clopidogrel (PLAVIX) 75 mg tablet Take 75 mg by mouth once daily. - metoprolol succinate ER (TOPROL XL) 100 mg Take 100 mg by mouth once daily. - amLODIPine (NORVASC) 10 mg tablet Take 10 mg by mouth once daily. - hydroCHLOROthiazide (HYDRODIURIL, ESIDRIX) 25 mg tablet Take 25 mg by mouth once daily. - aspirin, enteric coated (ASPIRIN, ENTERIC COATED) 81 mg EC tablet Take 81 mg by mouth once daily. - multivitamin tablet Take 1 tablet by mouth once daily. - acetaminophen (TYLENOL EXTRA STRENGTH) 500 mg tablet Take 1,000 mg by mouth every 6 hours as needed. - lithium carbonate 300 mg tablet Take 300 mg by mouth three times daily. Problem List As Of Date 04/04/2022 Noted Resolved Essential hypertension [I10] 07/16/2017 Encounter Status:Closed by KATHERINE SINCLAIR on 04/04/22 Normal [facility] CBC W Ordered Manual Differe ntial panel (Bld)on 03-18-2022 Abs Immature Gran 0.10 k/uL High <0.10 k/uL [facility] Basophils (Bld) [#/Vol] 0.10 10*3/uL <0.11 k/uL [facility] Basophils/100 WBC (Bld) 0.8 % [facility] Differential cell count method Nom (Bld) Auto [facility] Eosinophils (Bld) [#/Vol] 0.09 10*3/uL <0.46 k/uL [facility] Eosinophils/100 WBC (Bld) 0.7 % [facility] Erythrocyte distribution width (RBC) [Ratio] 13.9 % 11.5 - 15.0 % [facility] Hematocrit (Bld) [Volume fraction] 39.2 % 39.0 - 51.0 % [facility] Hemoglobin (Bld) [Mass/Vol] 13.6 g/dL 13.0 - 17.0 g/dL [facility] Immature Gran % 0.8 % [facility] Lymphocytes (Bld) [#/Vol] 3.27 10*3/uL 1.00 - 4.00 k/uL [facility] Lymphocytes/100 WBC (Bld) 25.4 % [facility] MCH (RBC) [Entitic mass] 29.2 pg 26.0 - 34.0 pg [facility] MCHC (RBC) [Mass/Vol] 34.7 g/dL 30.5 - 36.0 g/dL [facility] MCV (RBC) [Entitic vol] 84.3 fL 80.0 - 100.0 fL [facility] Monocytes (Bld) [#/Vol] 0.93 10*3/uL High <0.87 k/uL [facility] Monocytes/100 WBC (Bld) 7.2 % [facility] Neutrophils (Bld) [#/Vol] 8.37 10*3/uL High 1.45 - 7.50 k/uL [facility] Neutrophils/100 WBC (Bld) 65.1 % [facility] Nucleated RBC (Bld) [#/Vol] 10*3/uL <0.01 k/uL [facility] Nucleated RBC/100 WBC (Bld) [Ratio] 0.0 /100 WBC [facility] Platelet mean volume (Bld) [Entitic vol] 9.3 fL 9.0 - 12.7 fL [facility] Platelets (Bld) [#/Vol] 258 10*3/uL 150 - 400 k/uL [facility] RBC (Bld) [#/Vol] 4.65 10*6/uL 4.20 - 6.0 0 m/uL [facility] WBC (Bld) [#/Vol] 12.86 10*3/uL High 3.70 - 11 .00 k/uL [facility] Comprehensive metabolic 2000 panelon 03-18-2022 Albumin [Mass/Vol] 4.3 g/dL 3.9 - 4.9 g/dL [facility] ALP [Catalytic activity/Vol] 76 U/L 38 - 113 U/L [facility] ALT [Catalytic activity/Vol] 31 U/L 10 - 54 U/L [facility] Anion gap [Moles/Vol] 11 mmol/L 9 - 18 mmol/L [facility] AST [Catalytic activity/Vol] 25 U/L 14 - 40 U/L [facility] Bilirubin [Mass/Vol] 0.4 mg/dL 0.2 - 1 .3 mg/dL [facility] Calcium [Mass/Vol] 9.1 mg/dL 8.5 - 10. 2 mg/dL [facility] Chloride [Moles/Vol] 98 mmol/L 97 - 10 5 mmol/L [facility] CO2 [Moles/Vol] 26 mmol/L 22 - 30 mmol/L [facility] Creatinine [Mass/Vol] 0.76 mg/dL 0.73 - 1.22 mg/dL [facility] Estimated Glomerular Filtration Rate 101 mL/min/1.73m >=60 mL/min/1.73m [facility] Glucose [Mass/Vol] 195 mg/dL High 74 - 99 mg/dL [facility] Potassium [Moles/Vol] 3.0 mmol/L Low 3.7 - 5.1 mmol/L [facility] Protein [Mass/Vol] 6.8 g/dL 6.3 - 8.0 g/dL [facility] Sodium [Moles/Vol] 135 mmol/L Low 136 - 144 mmol/L [facility] Urea nitrogen [Mass/Vol] 13 mg/dL 9 - 24 mg/dL [facility] LD LACTATE DEHYDROon 022 LDH [Catalytic activity/Vol] 252 U/L High 135 - 225 U/L [facility] URIC ACID BLOODon 03-18-2022 Urate [Mass/Vol] 8.0 mg/dL 4.0 - 8.1 mg/dL [facility] XR BONE SURVEY ROUTINEon [facility] No Panel Informationon 03-04 Whole Blood Vitamin B1 Level 225.4 nmol/L 66.5-200.0 [facility] Work Phone: Comment on above: Performed at: [address] [id number] Director: Abigail Lemus MD, Phone: [phone] Basophil percentageon 2021 Bilirubin [Mass/Vol] 0.20 mg/dL 0.20-1.00 [facility] Work Phone: [phone] Comment on above: For patients on eltr ombopag therapy, use of Dimension [place] TBIL is not recommended. Chloride [Moles/Vol] 108 mmol/L 98-107 [facility] Work Phone: Glucose [Mass/Vol] 204 mg/dL 74-106 [facility] Work Phone: [phone] Comment on above: Glucose result great er than or equal to 200 mg/dLsuggests DIABETES MELLITUS per A.D.A. criteria. Potassium [Moles/Vol] 3.9 mmol/L 3.5-5.1 [facility] Work Phone: [phone] Protein [Mass/Vol] 7.3 g/dL 6.4-8.2 [facility] Work Phone: [phone] Sodium [Moles/Vol] 137 mmol/L 136-145 [facility] Work Phone: [phone] Laboratory - Chemistry and C hemistry - challengeon 02-12-2022 Albumin [Mass/Vol] 4.2 g/dL 2.9-4.4 [facility] Work Phone: ALP [Catalytic activity/Vol] 66 U/L 45-117 [facility] Work Phone: [phone] ALT [Catalytic activity/Vol] 36 U/L 16-61 [facility] Work Phone: [phone] CO2 [Moles/Vol] 24.0 mmol/L 21.0-32.0 [facility] Work Phone: [phone] Cobalamin (Vitamin B12) [Mass/Vol] 418 pg/mL 211-911 [facility] Work Phone: Globulin (S) [Mass/Vol] 3.4 g/dL 2.2-4.2 [facility] Work Phone: [phone] Urea nitrogen/Creatinine [Mass ratio] 22.4 mg/mg 10-20 [facility] Work Phone: [phone] No Panel Informationon 02-12 Addendum Document Comment . [facility] Work Phone: [phone] Comment on above: The SPE pattern demo nstrates two peaks in the beta-gammaregion which may represent monoclonal protein. A biclonalgammopathy may be confirmed by immunofixation, as well asevaluation of the urine for the presence of Bence-Jonesprotein. Ziqff-2-Ubqzfhlzi 0.2 g/dL 0.0-0.4 [facility] Work Phone: [phone] Adzrc-5-Objdqssrj 0.7 g/dL 0.4-1.0 [facility] Work Phone: [phone] Anti-Nuclear Antibody Screen Negative Negative [facility] Work Phone: [phone] Comment on above: Performed at: [facility] [employer] [place] [id number] Director: Joey Matos PhD, Phone: [phone] Estimated GFR (MDRD) Amer 99 mL/min >60 [facility] Work Phone: Comment on above: GFR Calc Estimated GFR (MDRD) Non-Af Amer 82 mL/min >60 [facility] Work Phone: [phone] Comment on above: Non- GFR Calc Gamma Globulins 0.9 g/dL 0.4-1.8 [facility] Work Phone: [phone] Thyroid Stimulating Hormone (TSH) 1.74 uIU/mL 0.358-3.74 [facility] Work Phone: [phone] Vitamin B6 Level 27.9 ug/L 5.3-46.7 [facility] Work Phone: [phone] Comment on above: Effective February 24, 2022 Vitamin B6 reference interval will be changing to: 3.4 - 65.2 ug/L Deficiency: < 3.4 Marginal: 3.4 - 5.1 Adequate: > 5.1 Whole Blood Vitamin B1 Level TNP [facility] Work Phone: Comment on above: Test not performedUn able to obtain a valid result due to inadequate or poorrecovery of target analyte. Please resubmit if clinicallyindicated.Verified by repeat analysisPerformed at: [facility] [address] [id number] Director: Joey Matos PhD, Phone: [phone] at: [facility] [employer] [id number] Director: Abigail Lemus MD, Phone: [phone] Protein Fractions Elph [Inte rp]on 02-12-2022 Protein Fractions [Interp] Comment . [facility] Work Phone: Comment on above: Protein electrophore sis scan will follow via computer,mail, or and drying supervisor cooking casing delivery. Serum albumin to globulin ra wilmer by protein electrophoresison 02-12-2022 Albumin/Globulin Elph [Mass ratio] 1.4 0.7-1.7 [facility] Work Phone: Serum globulin measurement ( mass/volume)on 02-12-2022 Globulin (S) [Mass/Vol] 2.9 g/dL 2.2-3.9 [facility] Work Phone: [phone] Serum or plasma albumin jony urement (mass/volume)on 02-12-2022 Albumin [Mass/Vol] 3.9 g/dL 3.2-5.0 [facility] Work Phone: [phone] Serum or plasma albumin/glob ulin mass ratioon 02-12-2022 Albumin/Globulin [Mass ratio] 1.1 {ratio} 0.9-2.4 [facility] Work Phone: [phone] Serum or plasma beta globuli n measurement by electrophoresis (mass/volume)on 02-12-2022 Beta globulin Elph [Mass/Vol] 1.0 g/dL 0.7-1.3 [facility] Work Phone: Serum or plasma calcium jony urement (mass/volume)on 02-12-2022 Calcium [Mass/Vol] 9.2 mg/dL 8.5-10.1 [facility] Work Phone: Serum or plasma creatinine m easurement (mass/volume)on 02-12-2022 Creatinine [Mass/Vol] 0.98 mg/dL 0.70-1.30 [facility] Work Phone: Comment on above: The validity of the calculated GFR & GFRAA in patients over 70 years has not been determined. Clinical correlation is essential. Serum or plasma urea nitroge n measurement (mass/volume)on 02-12-2022 Urea nitrogen [Mass/Vol] 22 mg/dL 7-18 [facility] Work Phone: Thin prep Papanicolaou smear with manual screeningon 02-12-2022 Thin prep Papanicolaou smear with manual screening 17 U/L 15-37 [facility] Work Phone: Thin prep Papanicolaou smear with manual screening 5 5-15 [facility] Work Phone: Thin prep Papanicolaou smear with manual screening See comment [facility] Work Phone: Comment on above: M-SPIKE #1 = 0.4 G/D LM-SPIKE #2 = 0.2 G/DL Total protein bloodon 2021 Protein [Mass/Vol] 7.1 g/dL 6.0-8.5 [facility] Work Phone: Whole blood hemoglobin A1c/t otal hemoglobin ratio (mass fraction)on 02-12-2022 HbA1c (Bld) [Mass fraction] 6.5 % 3.8-5.6 [facility] Work Phone: Comment on above: Normal < 5.7 % Predi abetic 5.7 - 6.4 % Diabetic >or= 6.5 % Please note range changes. Glucose Glucometer (BldC) [M ass/Vol]on 11-19-2021 Glucose [Mass/Vol] 177 mg/dL 70-110 [facility] Work Phone: Comment on above: MANAGEMENT OF PATIEN T CARE PER NURSING PROTOCOL Laboratory - Chemistry and C hemistry - challengeon 11-14-2021 Cobalamin (Vitamin B12) [Mass/Vol] 377 pg/mL 211-911 [facility] Work Phone: No Panel Informationon 11-14 Whole Blood Vitamin B1 Level See comment [facility] Work Phone: Comment on above: TEST RESULT LIMITSVi tamin B1 (Thiamine), Blood 199.0 nmol/L 66.5-200.0 ____ [facility] ORIGINAL REPORT ON FILE IN LAB CONTAINS ADDITIONAL TEST SITE INFORMATION. No Panel Informationon 11-12 Fructosamine 250 umol/L [facility] Work Phone: Comment on above: Published reference interval for apparently healthysubjects between age 20 and 60 is 205 - 285 umol/L and in apoorly controlled diabetic population is 228 - 563 umol/Lwith a mean of 396 umol/L.Performed at: [address] [id number] Director: Joey Matos PhD, Phone: [phone] Basophil percentageon 2020 Bilirubin [Mass/Vol] 0.40 mg/dL 0.20-1.00 [facility] Work Phone: Comment on above: For patients on eltr ombopag therapy, use of Dimension [place] TBIL is not recommended. Protein [Mass/Vol] 7.2 g/dL 6.4-8.2 [facility] Work Phone: Direct bilirubinon Bilirubin.direct [Mass/Vol] 0.06 mg/dL 0.00-0.30 [facility] Work Phone: INR in Blood by Coagulation assayon 11-06-2021 INR Coag (Bld) [Relative time] 1.0 {INR} [facility] Work Phone: Laboratory - Chemistry and C hemistry - challengeon 11-06-2021 ALP [Catalytic activity/Vol] 68 U/L 45-117 [facility] Work Phone: ALT [Catalytic activity/Vol] 48 U/L 16-61 [facility] Work Phone: [phone] Globulin (S) [Mass/Vol] 3.5 g/dL 2.2-4.2 [facility] Work Phone: Magnesium [Mass/Vol] 2.1 mg/dL 1.6-2.6 [facility] Work Phone: Laboratory - Coagulationon 1 01-07-2021 aPTT Coag (Bld) [Time] 27.0 s 24.1-36.2 [facility] Work Phone: PT Coag (PPP) [Time] 12.1 s 11.7-14.9 [facility] Work Phone: No Panel Informationon 11-06 Nasal Screen MRSA/MSSA [facility] Work Phone: [phone] Serum or plasma albumin jony urement (mass/volume)on 11-06-2021 Albumin [Mass/Vol] 3.7 g/dL 3.2-5.0 [facility] Work Phone: Thin prep Papanicolaou smear with manual screeningon 11-06-2021 Thin prep Papanicolaou smear with manual screening 27 U/L 15-37 [facility] Work Phone: Vital Signs Date Time Vital Sign Value Performing Clinician Facility 05-03-2025 11:11-0400 Body height 183 cm Carlos Storey DO Work Phone: [facility] 05-03-2025 11:11-0400 Body mass index (BMI) [Ratio] 35.69 kg/m2 Carlos Masci DO Work Phone: [facility] 05-03-2025 11:11-0400 Body temperature 98.2 [degF] Carlos Masci DO Work Phone: [facility] 05-03-2025 11:11-0400 Body weight 119.52 kg Carlos Masci DO Work Phone: [facility] 05-03-2025 11:11-0400 Diastolic blood pressure 63 mm[Hg] Carlos Masci DO Work Phone: [facility] 05-03-2025 11:11-0400 Heart rate 59 /min Carlos Masci DO Work Phone: [facility] 05-03-2025 11:11-0400 SaO2% (BldA) [Mass fraction] 96 % Carlos Masci DO Work Phone: [facility] 05-03-2025 11:11-0400 Systolic blood pressure 110 mm[Hg] Carlos Masci DO Work Phone: [facility] 11-07-2024 08:06-0500 Body temperature 98.29 [degF] Carlos Masci DO Work Phone: [facility] 11-07-2024 08:06-0500 Diastolic blood pressure 74 mm[Hg] Carlos Masci DO Work Phone: [facility] 11-07-2024 08:06-0500 Heart rate 77 /min Carlos Masci DO Work Phone: [facility] 11-07-2024 08:06-0500 SaO2% (BldA) [Mass fraction] 93 % Carlos Masci DO Work Phone: [facility] 11-07-2024 08:06-0500 Systolic blood pressure 157 mm[Hg] Carlos Masci DO Work Phone: [facility] 09-03-2023 08:03-0400 Body mass index (BMI) [Ratio] 35.9 kg/m2 Dr. Silverio Salmeron Work Phone: [facility] 09-03-2023 08:03-0400 Body temperature 98.2 [degF] Dr. Silverio Salmeron Work Phone: [facility] 09-03-2023 08:03-0400 Body weight 123.[address] Silverio Salmeron Work Phone: [facility] 09-03-2023 08:03-0400 Diastolic blood pressure 70 mm[Hg] Dr. Silverio Salmeron Work Phone: [facility] 09-03-2023 08:03-0400 Heart rate 70 /min Dr. Silverio Salmeron Work Phone: [facility] 09-03-2023 08:03-0400 Respiratory rate 17 /min Dr. Silverio Salmeron Work Phone: [facility] 09-03-2023 08:03-0400 SaO2% (BldA) [Mass fraction] 92 % Dr. Silverio Salmeron Work Phone: [facility] 09-03-2023 08:03-0400 Systolic blood pressure 124 mm[Hg] Dr. Silveroi Salmeron Work Phone: [facility] 08-15-2023 08:59-0400 Body temperature 97.6 [degF] Dr. Silverio Salmeron Work Phone: [facility] 08-15-2023 08:59-0400 Diastolic blood pressure 64 mm[Hg] Dr. Silverio Salmeron Work Phone: [facility] 08-15-2023 08:59-0400 Heart rate 68 /min Dr. Silverio Salmeron Work Phone: [facility] 08-15-2023 08:59-0400 Respiratory rate 14 /min Dr. Silverio Salmeron Work Phone: [facility] 08-15-2023 08:59-0400 SaO2% (BldA) [Mass fraction] 95 % Dr. Silverio Salmeron Work Phone: [facility] 08-15-2023 08:59-0400 Systolic blood pressure 126 mm[Hg] Dr. Silverio Salmeron Work Phone: [facility] 07-14-2023 14:42-0400 Body height 185.[address] Silverio Salmeron Work Phone: [facility] 07-14-2023 14:42-0400 Body mass index (BMI) [Ratio] 36.2 kg/m2 Dr. Silverio Salmeron Work Phone: [facility] 07-14-2023 14:42-0400 Body temperature 99.1 [degF] Dr. Silverio Salmeron Work Phone: [facility] 07-14-2023 14:42-0400 Body weight 124.[address] Silverio Salmeron Work Phone: [facility] 07-14-2023 14:42-0400 Diastolic blood pressure 70 mm[Hg] Dr. Silverio Salmeron Work Phone: [facility] 07-14-2023 14:42-0400 Heart rate 59 /min Dr. Silverio Salmeron Work Phone: [facility] 07-14-2023 14:42-0400 Respiratory rate 17 /min Dr. Silverio Salmeron Work Phone: [facility] 07-14-2023 14:42-0400 SaO2% (BldA) [Mass fraction] 95 % Dr. Silverio Salmeron Work Phone: [facility] 07-14-2023 14:42-0400 Systolic blood pressure 130 mm[Hg] Dr. Silverio Salmeron Work Phone: [facility] 06-02-2023 15:56-0400 Diastolic blood pressure 72 mm[Hg] Dr. Silverio Salmeron Work Phone: [facility] 06-02-2023 15:56-0400 Systolic blood pressure 134 mm[Hg] Dr. Silverio Salmeron Work Phone: [facility] 06-02-2023 15:38-0400 Body temperature 97.4 [degF] Dr. Silverio Salmeron Work Phone: [facility] 06-02-2023 15:38-0400 Heart rate 66 /min Dr. Silverio Salmeron Work Phone: [facility] 06-02-2023 15:38-0400 Respiratory rate 16 /min Dr. Silverio Salmeron Work Phone: [facility] 06-02-2023 15:38-0400 SaO2% (BldA) [Mass fraction] 96 % Dr. Silverio Salmeron Work Phone: [facility] 04-08-2023 14:31-0400 Diastolic blood pressure 82 mm[Hg] Dr. Silverio Salmeron Work Phone: [facility] 04-08-2023 14:31-0400 Heart rate 65 /min Dr. Silverio Salmeron Work Phone: [facility] 04-08-2023 14:31-0400 Systolic blood pressure 146 mm[Hg] Dr. Silverio Salmeron Work Phone: [facility] 04-08-2023 09:26-0400 Body height 185.[address] Silverio Salmeron Work Phone: [facility] 04-08-2023 09:26-0400 Body temperature 98.6 [degF] Dr. Silverio Salmeron Work Phone: [facility] 04-08-2023 09:26-0400 Respiratory rate 17 /min Dr. Silverio Salmeron Work Phone: [facility] 04-08-2023 09:26-0400 SaO2% (BldA) [Mass fraction] 95 % Dr. Silverio Salmeron Work Phone: [facility] 01-19-2023 20:58-0500 Diastolic blood pressure 74 mm[Hg] Dr. Silverio Salmeron Work Phone: [facility] 01-19-2023 20:58-0500 Heart rate 68 /min Dr. Silverio Salmeron Work Phone: [facility] 01-19-2023 20:58-0500 Systolic blood pressure 130 mm[Hg] Dr. Silverio Salmeron Work Phone: [facility] 01-19-2023 08:00-0500 Body height 185.[address] Silverio Salmeron Work Phone: [facility] 01-19-2023 08:00-0500 Body mass index (BMI) [Ratio] 33.3 kg/m2 Dr. Silverio Salmeron Work Phone: [facility] 01-19-2023 08:00-0500 Body temperature 98 [degF] Dr. Silverio Salmeron Work Phone: [facility] 01-19-2023 08:00-0500 Body weight 114.[address] Silverio Salmeron Work Phone: [facility] 01-19-2023 08:00-0500 Respiratory rate 17 /min Dr. Silverio Salmeron Work Phone: [facility] 01-19-2023 08:00-0500 SaO2% (BldA) [Mass fraction] 95 % Dr. Silverio Salmeron Work Phone: [facility] 12-23-2022 13:03-0500 Diastolic blood pressure 59 mm[Hg] Dr. Silverio Salmeron Work Phone: [facility] 12-23-2022 13:03-0500 Systolic blood pressure 104 mm[Hg] Dr. Silverio Salmeron Work Phone: [facility] 12-23-2022 10:19-0500 Body temperature 97.2 [degF] Carlos Storey DO Work Phone: [facility] 12-23-2022 10:19-0500 Body weight 114.31 kg Carlos Storey DO Work Phone: [facility] 12-23-2022 10:19-0500 Diastolic blood pressure 66 mm[Hg] Carlos Masci DO Work Phone: [facility] 12-23-2022 10:19-0500 Heart rate 51 /min Carlos Storey DO Work Phone: [facility] 12-23-2022 10:19-0500 Systolic blood pressure 111 mm[Hg] Carlos Storey DO Work Phone: [facility] 12-10-2022 13:40-0500 Body temperature 98.1 [degF] Dr. Silverio Salmeron Work Phone: [facility] 12-10-2022 13:40-0500 Diastolic blood pressure 51 mm[Hg] Dr. Silverio Salmeron Work Phone: [facility] 12-10-2022 13:40-0500 Heart rate 50 /min Dr. Silverio Salmeron Work Phone: [facility] 12-10-2022 13:40-0500 Respiratory rate 18 /min Dr. Silverio Salmeron Work Phone: [facility] 12-10-2022 13:40-0500 SaO2% (BldA) [Mass fraction] 97 % Dr. Silverio Salmeron Work Phone: [facility] 12-10-2022 13:40-0500 Systolic blood pressure 111 mm[Hg] Dr. Silverio Salmeron Work Phone: [facility] 12-10-2022 08:11-0500 Inhaled oxygen flow rate 2 L/min Dr. Silverio Salmeron Work Phone: [facility] 12-09-2022 05:46-0500 Body height 185.[address] Silverio Salmeron Work Phone: [facility] 12-09-2022 05:46-0500 Body mass index (BMI) [Ratio] 33.4 kg/m2 Dr. Silverio Salmeron Work Phone: [facility] 12-09-2022 05:46-0500 Body weight [address] Silverio Salmeron Work Phone: [facility] 11-18-2022 09:00-0500 Body temperature 97.3 [degF] Dr. Silverio Salmeron Work Phone: [facility] 11-18-2022 09:00-0500 Diastolic blood pressure 63 mm[Hg] Dr. Silverio Salmeron Work Phone: [facility] 11-18-2022 09:00-0500 Heart rate 60 /min Dr. Silverio Salmeron Work Phone: [facility] 11-18-2022 09:00-0500 Respiratory rate 16 /min Dr. Silverio Salmeron Work Phone: [facility] 11-18-2022 09:00-0500 SaO2% (BldA) [Mass fraction] 92 % Dr. Silverio Salmeron Work Phone: [facility] 11-18-2022 09:00-0500 Systolic blood pressure 103 mm[Hg] Dr. Silverio Salmeron Work Phone: [facility] 11-18-2022 07:39-0500 Body height 185.[address] Silverio Salmeron Work Phone: [facility] Work Phone: 11-18-2022 07:39-0500 Body mass index (BMI) [Ratio] 34.2 kg/m2 Dr. Silverio Salmeron Work Phone: [facility] 11-18-2022 07:39-0500 Body weight 117.[address] Silverio Salmeron Work Phone: [facility] 11-05-2022 12:20-0500 Body mass index (BMI) [Ratio] 35.3 kg/m2 Dr. Silverio Salmeron Work Phone: [facility] 11-05-2022 12:20-0500 Body temperature 97.8 [degF] Dr. Silverio Salmeron Work Phone: [facility] 11-05-2022 12:20-0500 Body weight 121.[address] Silverio Salmeron Work Phone: [facility] 11-05-2022 12:20-0500 Diastolic blood pressure 78 mm[Hg] Dr. Silverio Salmeron Work Phone: [facility] 11-05-2022 12:20-0500 Heart rate 57 /min Dr. Silverio Salmeron Work Phone: [facility] 11-05-2022 12:20-0500 Respiratory rate 20 /min Dr. Silverio Salmeron Work Phone: [facility] 11-05-2022 12:20-0500 SaO2% (BldA) [Mass fraction] 98 % Dr. Silverio Salmeron Work Phone: [facility] 11-05-2022 12:20-0500 Systolic blood pressure 175 mm[Hg] Dr. Silverio Salmeron Work Phone: [facility] 10-29-2022 08:41-0500 Body mass index (BMI) [Ratio] 34.9 kg/m2 Dr. Silverio Salmeron Work Phone: [facility] 10-29-2022 08:41-0500 Body weight 119.[address] Silverio Salmeron Work Phone: [facility] 10-24-2022 08:05-0500 Body mass index (BMI) [Ratio] 34.2 kg/m2 Dr. Silverio Salmeron Work Phone: [facility] 10-24-2022 08:05-0500 Body weight 117.[address] Silverio Salmeron Work Phone: [facility] 10-24-2022 08:05-0500 Diastolic blood pressure 83 mm[Hg] Dr. Silverio Salmeron Work Phone: [facility] 10-24-2022 08:05-0500 Heart rate 65 /min Dr. Silverio Salmeron Work Phone: [facility] 10-24-2022 08:05-0500 Respiratory rate 16 /min Dr. Silverio Salmeron Work Phone: [facility] 10-24-2022 08:05-0500 Systolic blood pressure 143 mm[Hg] Dr. Silverio Salmeron Work Phone: [facility] 09-10-2022 18:41-0400 Diastolic blood pressure 67 mm[Hg] Dr. Silverio Salmeron Work Phone: [facility] 09-10-2022 18:41-0400 Systolic blood pressure 124 mm[Hg] Dr. Silverio Salmeron Work Phone: [facility] 09-10-2022 08:45-0400 Body height 185.[address] Silverio Salmeron Work Phone: [facility] Work Phone: 09-10-2022 08:45-0400 Body mass index (BMI) [Ratio] 36.3 kg/m2 Dr. Silverio Salmeron Work Phone: [facility] 09-10-2022 08:45-0400 Body temperature 98.1 [degF] Dr. Silverio Salmeron Work Phone: [facility] 09-10-2022 08:45-0400 Body weight 124.[address] Silverio Salmeron Work Phone: [facility] 09-10-2022 08:45-0400 Heart rate 84 /min Dr. Silverio Salmeron Work Phone: [facility] 09-10-2022 08:45-0400 Respiratory rate 16 /min Dr. Silverio Salmeron Work Phone: [facility] 09-10-2022 08:45-0400 SaO2% (BldA) [Mass fraction] 99 % Dr. Silverio Salmeron Work Phone: [facility] 08-03-2022 11:19-0400 Body temperature 97.4 [degF] Dr. Silverio Salmeron Work Phone: [facility] Work Phone: 08-03-2022 11:19-0400 Diastolic blood pressure 90 mm[Hg] Dr. Silverio Salmeron Work Phone: [facility] Work Phone: 08-03-2022 11:19-0400 Heart rate 79 /min Dr. Silverio Salmeron Work Phone: [facility] Work Phone: 08-03-2022 11:19-0400 Respiratory rate 15 /min Dr. Silverio Salmeron Work Phone: [facility] Work Phone: 08-03-2022 11:19-0400 SaO2% (BldA) [Mass fraction] 96 % Dr. Silverio Salmeron Work Phone: [facility] [facility] Work Phone: 08-03-2022 11:19-0400 Systolic blood pressure 172 mm[Hg] Dr. Silverio Salmeron Work Phone: [facility] Work Phone: 06-17-2022 13:32-0400 Body height 185.[address] Silverio Salmeron Work Phone: [facility] Work Phone: 06-17-2022 13:32-0400 Body mass index (BMI) [Ratio] 35.6 kg/m2 Dr. Silverio Salmeron Work Phone: [facility] Work Phone: 06-17-2022 13:32-0400 Body temperature 98 [degF] Dr. Silverio Salmeron Work Phone: [facility] Work Phone: 06-17-2022 13:32-0400 Body weight 122.[address] Silverio Salmeron Work Phone: [facility] Work Phone: 06-17-2022 13:32-0400 Diastolic blood pressure 82 mm[Hg] Dr. Silverio Salmeron Work Phone: [facility] Work Phone: 06-17-2022 13:32-0400 Heart rate 64 /min Dr. Silverio Salmeron Work Phone: [facility] Work Phone: 06-17-2022 13:32-0400 Respiratory rate 16 /min Dr. Silverio Salmeron Work Phone: [facility] Work Phone: 06-17-2022 13:32-0400 SaO2% (BldA) [Mass fraction] 97 % Dr. Silverio Salmeron Work Phone: [facility] Work Phone: 06-17-2022 13:32-0400 Systolic blood pressure 132 mm[Hg] Dr. Silverio Salmeron Work Phone: [facility] Work Phone: 05-19-2022 07:55-0400 Body temperature 98 [degF] Dr. Silverio Salmeron Work Phone: [facility] Work Phone: 05-19-2022 07:55-0400 Diastolic blood pressure 82 mm[Hg] Dr. Silverio Salmeron Work Phone: [facility] Work Phone: 05-19-2022 07:55-0400 Heart rate 70 /min Dr. Silverio Salmeron Work Phone: [facility] Work Phone: 05-19-2022 07:55-0400 Respiratory rate 14 /min Dr. Silverio Salmeron Work Phone: [facility] Work Phone: 05-19-2022 07:55-0400 SaO2% (BldA) [Mass fraction] 99 % Dr. Silverio Salmeron Work Phone: [facility] Work Phone: 05-19-2022 07:55-0400 Systolic blood pressure 176 mm[Hg] Dr. Silverio Salmeron Work Phone: [facility] Work Phone: 05-02-2022 11:10-0400 Body temperature 98.2 [degF] Carlos Masci DO Work Phone: [facility] 05-02-2022 11:10-0400 Body weight 124.74 kg Carlos Masci DO Work Phone: [facility] 05-02-2022 11:10-0400 Diastolic blood pressure 75 mm[Hg] Carlos Masci DO Work Phone: [facility] 05-02-2022 11:10-0400 Heart rate 69 /min Carlos Masci DO Work Phone: [facility] 05-02-2022 11:10-0400 SaO2% (BldA) [Mass fraction] 95 % Carlos Masci DO Work Phone: [facility] 05-02-2022 11:10-0400 Systolic blood pressure 144 mm[Hg] Carlos Masci DO Work Phone: [facility] 04-02-2022 08:48-0400 Body temperature 98.49 [degF] Carlos Masci DO Work Phone: [facility] 04-02-2022 08:48-0400 Body weight 124.06 kg Carlos Masci DO Work Phone: [facility] 04-02-2022 08:48-0400 Diastolic blood pressure 79 mm[Hg] Carlos Masci DO Work Phone: [facility] 04-02-2022 08:48-0400 Heart rate 72 /min Carlos Masci DO Work Phone: [facility] 04-02-2022 08:48-0400 SaO2% (BldA) [Mass fraction] 98 % Carlos Masci DO Work Phone: [facility] 04-02-2022 08:48-0400 Systolic blood pressure 146 mm[Hg] Carlos Masci DO Work Phone: [facility] 03-18-2022 17:03-0400 Body height 186.[address] Silverio Salmeron Work Phone: [facility] Work Phone: 03-18-2022 17:03-0400 Body weight 121.[address] Silverio Salmeron Work Phone: [facility] Work Phone: 03-18-2022 13:57-0400 Body height 182.9 cm Carlos Baezi DO Work Phone: [facility] 03-18-2022 13:57-0400 Body temperature 98.29 [degF] Carlos Baezi DO Work Phone: [facility] 03-18-2022 13:57-0400 Body weight 123.83 kg Carlos Baezi DO Work Phone: [facility] 03-18-2022 13:57-0400 Diastolic blood pressure 72 mm[Hg] Carlos Baezi DO Work Phone: [facility] 03-18-2022 13:57-0400 Heart rate 69 /min Carlos Baezi DO Work Phone: [facility] 03-18-2022 13:57-0400 Systolic blood pressure 160 mm[Hg] Carlos Baezi DO Work Phone: [facility] 11-19-2021 15:30-0500 Body temperature 96.5 [degF] Dr. Silverio Salmeron Work Phone: [facility] Work Phone: 11-19-2021 15:30-0500 Diastolic blood pressure 55 mm[Hg] Dr. Silverio Salmeron Work Phone: [facility] Work Phone: 11-19-2021 15:30-0500 Heart rate 52 /min Dr. Silverio Salmeron Work Phone: [facility] Work Phone: 11-19-2021 15:30-0500 Respiratory rate 16 /min Dr. Silverio Salmeron Work Phone: [facility] Work Phone: 11-19-2021 15:30-0500 SaO2% (BldA) [Mass fraction] 100 % Dr. Silverio Salmeron Work Phone: [facility] Work Phone: 11-19-2021 15:30-0500 Systolic blood pressure 111 mm[Hg] Dr. Silverio Salmeron Work Phone: [facility] Work Phone: 11-19-2021 05:20-0500 Body height 185.[address] Silverio Salmeron Work Phone: [facility] Work Phone: 11-19-2021 05:20-0500 Body mass index (BMI) [Ratio] 36.1 kg/m2 Dr. Silverio Salmeron Work Phone: [facility] Work Phone: 11-19-2021 05:20-0500 Body weight 124.[address] Silverio Salmeron Work Phone: [facility] Work Phone: 11-12-2021 10:19-0500 Body temperature 98.4 [degF] Dr. Silverio Salmeron Work Phone: [facility] Work Phone: 11-12-2021 10:19-0500 Diastolic blood pressure 80 mm[Hg] Dr. Silverio Salmeron Work Phone: [facility] Work Phone: 11-12-2021 10:19-0500 Heart rate 77 /min Dr. Silverio Salmeron Work Phone: [facility] Work Phone: 11-12-2021 10:19-0500 Respiratory rate 20 /min Dr. Silverio Salmeron Work Phone: [facility] Work Phone: 11-12-2021 10:19-0500 SaO2% (BldA) [Mass fraction] 93 % Dr. Silverio Salmeron Work Phone: [facility] Work Phone: 11-12-2021 10:19-0500 Systolic blood pressure 140 mm[Hg] Dr. Silverio Salmeron Work Phone: [facility] Work Phone: 11-12-2021 07:33-0500 Body mass index (BMI) [Ratio] 35.2 kg/m2 Dr. Silverio Salmeron Work Phone: [facility] Work Phone: 11-12-2021 07:33-0500 Body weight [address] Silverio Salmeron Work Phone: [facility] Work Phone: Encounters Encounter Date Encounter Type Care Provider Facility Start: 08-06-2025 End: 08-06-2025 ambulatory Silverio Marks NP Facility:[facility] Start: 07-26-2025 End: 07-26-2025 ambulatory Nathen Vargas Facility:[facility] Start: 07-20-2025 End: 07-20-2025 ambulatory Silverio Salmeron Facility:[facility] Start: 07-19-2025 End: 07-19-2025 ambulatory Awais Law Facility:[facility] Start: 07-13-2025 End: 07-13-2025 ambulatory Jyoti Salgado Facility:[facility] Start: 07-13-2025 End: 07-13-2025 ambulatory Silverio Salmeron Facility:[facility] Start: 06-30-2025 End: 06-30-2025 ambulatory Silverio Salmeron Facility:[facility] Start: 05-31-2025 End: 05-31-2025 ambulatory Hudson Almanzar Facility:[facility] Start: 05-03-2025 End: 05-03-2025 Patient encounter procedure aCrlos Storey DO Work Phone: Hematology/Oncology Start: 05-03-2025 End: 05-03-2025 ambulatory Carlos Storey DO Work Phone: Hematology/Oncology Comment on above: 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 Start: 03-27-2025 End: 03-27-2025 ambulatory Evon Garcia NP Facility:[facility] Start: 02-28-2025 End: 02-28-2025 ambulatory Hudson Almanzar Facility:[facility] Start: 02-03-2025 End: 02-03-2025 ambulatory Silverio Salmeron Facility:[facility] Start: 01-20-2025 End: 01-20-2025 ambulatory Silverio Salmeron Facility:[facility] Start: 01-10-2025 End: 01-10-2025 ambulatory Silverio Salmeron Facility:[facility] Start: 01-06-2025 End: 01-06-2025 ambulatory Silverio Salmeron Facility:[facility] Start: 12-22-2024 End: 12-22-2024 ambulatory Silverio Salmeron Facility:[facility] Start: 12-12-2024 End: 12-12-2024 ambulatory Silverio Salmeron Facility:[facility] Start: 12-09-2024 End: 12-09-2024 ambulatory [facility] Facility:[facility] Start: 12-02-2024 Encounter for other preprocedural examination R[facility] Start: 11-23-2024 End: 11-25-2024 Telephone encounter Carlos Storey DO Work Phone: Hematology/Oncology Comment on above: Follow Up Start: 11-18-2024 End: 11-18-2024 ambulatory Silverio Salmeron Facility:[facility] Start: 11-17-2024 ambulatory Soy Perez Facility:[facility] Start: 11-17-2024 End: 11-17-2024 ambulatory Soy Perez Facility:[facility] Start: 11-09-2024 End: 11-09-2024 ambulatory SILVERIO SALMERON Facility:[facility] Start: 11-07-2024 End: 11-07-2024 ambulatory Carlos Storey DO Work Phone: Hematology/Oncology Comment on above: Monoclonal gammopath y (Primary Dx); Polyneuropathy Start: 11-07-2024 End: 11-07-2024 Patient encounter procedure Carlos Storey DO Work Phone: Hematology/Oncology Start: 11-01-2024 ambulatory Luke Odell Facilit y:[facility] Start: 11-01-2024 End: 11-01-2024 ambulatory Luke Odell Facility:[facility] Start: 10-31-2024 End: 10-31-2024 ambulatory CARLOS STOREY Facility:[facility] Start: 10-17-2024 End: 10-17-2024 ambulatory Silverio Salmeron Facility:[facility] Start: 10-13-2024 End: 10-13-2024 ambulatory Africa Garrido Facility:[facility] Start: 10-12-2024 End: 10-12-2024 ambulatory Roly Chi Facility:[facility] Start: 10-03-2024 End: 10-03-2024 ambulatory Silverio Salmeron Facility:[facility] Start: 09-17-2024 End: 09-17-2024 ambulatory Devonte Benitez Facility:[facility] Start: 08-24-2024 End: 08-24-2024 ambulatory Hudson Almanzar Facility:[facility] Start: 09-07-2023 End: 09-07-[address] Silverio Salmeron Work Phone: [facility] Work Phone: Start: 09-07-2023 End: 09-07-[address] Silverio Salmeron Work Phone: [facility]-Physical Therapy Work Phone: Start: 09-03-2023 End: 09-03-[address] Silverio Salmeron Work Phone: [facility] Work Phone: Start: 08-26-2023 End: 08-26-[address] Silverio Salmeron Work Phone: [facility] Start: 08-15-2023 End: 08-15-[address] Silverio Salmeron Work Phone: [facility] Work Phone: Start: 07-28-2023 End: 07-28-[address] Silverio Salmeron Work Phone: [facility] Work Phone: Start: 07-28-2023 End: 07-28-[address] Silverio Salmeron Work Phone: [facility]-Ultrasound, [facility] Work Phone: Start: 07-24-2023 Non-patient / Non-visit Dr. Lizzette Salmeron Work Phone: [facility] Start: 07-24-2023 End: 07-24-[address] Silverio Salmeron Work Phone: [facility] Work Phone: Start: 07-24-2023 End: 07-24-[address] Silverio Salmeron Work Phone: [facility]-Cardiovascular Services Work Phone: Start: 07-14-2023 End: 07-14-[address] Silverio Salmeron Work Phone: [facility] Neurology Work Phone: Start: 06-22-2023 End: 06-22-[address] Silverio Salmeron Work Phone: [facility] Orthopaedic Specia Work Phone: Start: 06-10-2023 End: 06-10-[address] Silverio Salmeron Work Phone: [facility] Work Phone: Start: 06-10-2023 End: 06-10-[address] Silverio Salmeron Work Phone: [facility]-MRI - [facility] Work Phone: Start: 06-08-2023 End: 06-08-[address] Silverio Salmeron Work Phone: [facility] Work Phone: Start: 06-02-2023 End: 06-02-[address] Silverio Salmeron Work Phone: [facility] Work Phone: Start: 05-14-2023 End: 05-14-[address] Sivlerio Salmeron Work Phone: [facility]-Laboratory, Specimen Work Phone: Start: 05-04-2023 End: 05-04-[address] Silverio Salmeron Work Phone: [facility] Work Phone: Start: 05-04-2023 End: 05-04-[address] Silverio Salmeron Work Phone: [facility] Start: 04-08-2023 End: 04-08-[address] Silverio Salmeron Work Phone: [facility] Start: 03-24-2023 End: 03-24-[address] Silverio Salmeron Work Phone: [facility] Work Phone: Start: 03-24-2023 End: 03-24-[address] Silverio Salmeron Work Phone: [facility]-Physical Therapy Start: 02-14-2023 Telephone encounter Carlos vasquez DO Work Phone: Hematology/Oncology Comment on above: Results (Cryoglobuli ns negative) Start: 02-05-2023 End: 02-05-[address] Silverio Salmeron Work Phone: [facility] Work Phone: Start: 02-05-2023 End: 02-05-[address] Silverio Salmeron Work Phone: [facility]-Laboratory Start: 02-04-2023 End: 02-04-[address] Silverio Salmeron Work Phone: [facility] Work Phone: Start: 02-04-2023 End: 02-04-[address] Silverio Salmeron Work Phone: [facility], [facility] Start: 02-02-2023 End: 02-02-[address] Silverio Salmeron Work Phone: [facility] Work Phone: Start: 02-02-2023 End: 02-02-[address] Silverio Salmeron Work Phone: [facility] Start: 01-30-2023 End: 01-30-[address] Silverio Salmeron Work Phone: [facility] Work Phone: Start: 01-30-2023 End: 01-30-[address] Silverio Salmeron Work Phone: [facility] Start: 01-21-2023 End: 01-21-[address] Silverio Salmeron Work Phone: [facility] Work Phone: Start: 01-21-2023 End: 01-21-[address] Silverio Salmeron Work Phone: [facility] Start: 01-21-2023 End: 01-21-[address] Silverio Salmeron Work Phone: [facility] Start: 01-19-2023 End: 01-19-[address] Silverio Salmeron Work Phone: [facility] Start: 01-15-2023 End: 01-16-2023 Orders Only Carlos Storey DO Work Phone: Hematology/Oncology Comment on above: IgM kappa monoclonal gammopathy (Primary Dx) Start: 01-14-2023 End: 01-15-2023 ambulatory CARLOS STOREY Facility:[facility] Start: 01-13-2023 Telephone encounter Carlos vasquez DO Work Phone: Hematology/Oncology Comment on above: Follow Up (Tumor boa rd recommendations) Start: 01-08-2023 End: 01-08-[address] Silverio Salmeron Work Phone: [facility] Start: 01-05-2023 ambulatory Ghislainelo Chaireztenisha CRUZ, PhD Work Phone: Hematology/Oncology Start: 12-30-2022 Patient encounter procedure Carlos Storey DO Work Phone: Hematology/Oncology Comment on above: Encounter for consul tation (Primary Dx) Start: 12-23-2022 End: 12-23-[address] 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 Lizzette Salmeron Work Phone: [facility] Start: 12-16-2022 End: 12-16-[address] Silverio Salmeron Work Phone: [facility] Work Phone: Start: 12-16-2022 End: 12-16-[address] Silverio Salmeron Work Phone: [facility] Start: 12-14-2022 Telephone encounter Carlos vasquez DO Work Phone: Hematology/Oncology Comment on above: Follow Up Start: 12-10-2022 Non-patient / Non-visit Dr. Lizzette Salmeron Work Phone: [facility] Start: 12-09-2022 Non-patient / Non-visit Dr. Lizzette Salmeron Work Phone: [facility] Start: 12-09-2022 End: 12-10-2022 Evaluation and management of inpatient Dr. Silverio Salmer[facility] Start: 11-27-2022 End: 11-27-2022 Non-patient / Non-visit Dr. Silverio Salmeron Work Phone: [facility] Start: 11-26-2022 End: 11-26-[address] Silverio Salmeron Work Phone: [facility] Start: 11-18-2022 Non-patient / Non-visit Dr. Lizzette Salmeron Work Phone: [facility] Start: 11-18-2022 End: 11-18-2022 Admission to same day surgery center Dr. Silverio Salmeron Work Phone: [facility]-Endoscopy Start: 11-18-2022 End: 11-18-[address] Silverio Salmeron Work Phone: [facility] Work Phone: Start: 11-10-2022 End: 11-10-2022 Subsequent hospital visit by physician Xr 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 Silverio Salmeron Work Phone: [facility] Start: 11-04-2022 End: 11-04-[address] Silevrio Salmeron Work Phone: [facility] Work Phone: Start: 11-04-2022 End: 11-04-[address] Silverio Salmeron Work Phone: [facility] Start: 11-03-2022 End: 11-03-[address] Silverio Salmeron Work Phone: [facility] Work Phone: Start: 11-03-2022 End: 11-03-[address] Silverio Salmeron Work Phone: [facility] Start: 10-30-2022 Orders Only Carlos Quintana Work Phone: Hematology/Oncology Comment on above: Gammopathy, benign m onoclonal (Primary Dx) Start: 10-30-2022 End: 10-30-[address] Silverio Salmeron Work Phone: [facility] Start: 10-29-2022 End: 10-29-[address] Silverio Salmeron Work Phone: [facility] Work Phone: Start: 10-29-2022 End: 10-29-[address] Silverio Salmeron Work Phone: [facility] Start: 10-24-2022 End: 10-24-[address] Silverio Salmeron Work Phone: [facility] Start: 10-10-2022 End: 10-10-[address] Silverio Salmeron Work Phone: [facility] Work Phone: Start: 10-10-2022 End: 10-10-[address] Silverio Salmeron Work Phone: [facility]-Physical Therapy Start: 10-08-2022 End: 10-08-[address] Silverio Salmeron Work Phone: [facility] Work Phone: Start: 10-08-2022 End: 10-08-[address] Silverio Salmeron Work Phone: [facility] Start: 10-03-[address] Silverio Salmeron Work Phone: [facility]-Physical Therapy Start: 09-30-2022 Non-patient / Non-visit Dr. Lizzette Salmeron Work Phone: [facility] Start: 09-30-2022 End: 09-30-[address] Silverio Salmeron Work Phone: [facility] Work Phone: Start: 09-30-2022 End: 09-30-[address] Silverio Salmeron Work Phone: [facility]-Cardiovascular Services Start: 09-23-[address] Silverio Salmeron Work Phone: [facility]Physical Therapy Start: 09-22-2022 End: 09-22-[address] Silverio Salmeron Work Phone: [facility] Work Phone: Start: 09-22-2022 End: 09-22-[address] Silverio Salmeron Work Phone: [facility] Start: 09-10-2022 End: 09-10-[address] Silverio Salmeron Work Phone: [facility] Work Phone: Start: 09-10-2022 End: 09-10-[address] Silverio Salmeron Work Phone: [facility] Start: 09-10-2022 End: 09-10-[address] Silverio Salmeron Work Phone: [facility] Start: 09-04-2022 Non-patient / Non-visit Dr. Lizzette Salmeron Work Phone: [facility] Start: 09-04-2022 End: 09-04-[address] Silverio Salmeron Work Phone: [facility] Work Phone: Start: 09-04-2022 End: 09-04-[address] Silverio Salmeron Work Phone: [facility]Cardiovascular Services Start: 08-26-[address] Silverio Salmeron Work Phone: [facility]Physical Therapy Start: 08-07-2022 End: 08-07-[address] Silverio Salmeron Work Phone: [facility] Work Phone: Start: 08-07-2022 End: 08-07-[address] Silverio Salmeron Work Phone: [facility] Start: 08-03-2022 End: 08-03-[address] Silverio Salmeron Work Phone: [facility] Start: 06-27-2022 End: 06-27-[address] Silver[facility] Sal[facility] Start: 06-18-2022 Non-patient / Non-visit Dr. Lizzette Salmeron Work Phone: [facility] Start: 06-18-2022 End: 06-18-[address] Silverio Salmeron Work Phone: [facility]Cardi[facility] Services Start: 06-17-2022 End: 06-17-2022 Emergency department patient visit Dr. Silverio Salmeron Work Phone: [facility]-Emergency Department Start: 06-05-2022 End: 06-05-[address] Silverio Salmeron Work Phone: [facility] Start: 05-19-2022 End: 05-19-[address] Silverio Salmeron Work Phone: [facility] Start: 05-02-2022 End: 05-02-2022 ambulatory Carlos Storey DO Work Phone: Hematology/Oncology Comment on above: Gammopathy, benign m onoclonal (Primary Dx) Start: 05-02-2022 End: 05-02-2022 Patient encounter procedure Carlos Storey DO Work Phone: [facility] Start: 04-17-2022 End: 04-18-2022 ambulatory UNKNOWN PROVIDER Facility:[facility] Start: 04-08-2022 Telephone encounter Liv Brown RN [facility] Comment on above: Radiology Pre Proced ure Instructions Start: 04-07-2022 Telephone encounter Katherine Sinclair RN [facility] Comment on above: Returning Patient's Call Start: 04-04-2022 Telephone encounter Katherine Sinclair RN [facility] Comment on above: Appointment Start: 04-02-2022 Anticoagulant drug monitoring Amy Lubin PA-C Work Phone: Radiology Comment on above: Chronic anticoagulat ion (Primary Dx) Start: 04-02-2022 Telephone encounter Carlos vasquez DO Work Phone: Hematology/Oncology Comment on above: Orders Start: 04-02-2022 End: 04-02-2022 ambulatory Carlos Storey DO Work Phone: Hematology/Oncology Comment on above: Monoclonal gammopath y (Primary Dx); Neuropathy; Multiple myeloma not having achieved remission (HCC) Start: 04-02-2022 End: 04-02-2022 Patient encounter procedure Carlos Storey DO Work Phone: [facility] Start: 03-19-2022 Telephone encounter Carlos vasquez DO Work Phone: Hematology/Oncology Comment on above: Results Start: 03-18-2022 End: 03-18-2022 Subsequent hospital visit by physician [facility] Work Phone: Radiology Comment on above: Monoclonal gammopath y [D47.2] Start: 03-18-2022 End: 03-18-2022 ambulatory Carlos Storey DO Work Phone: Hematology/Oncology Comment on above: Monoclonal gammopath y (Primary Dx); Sensory neuropathy Start: 03-18-2022 End: 03-18-2022 Patient encounter procedure Carlos Storey DO Work Phone: [facility] Start: 03-18-2022 End: 03-22-[address] Silverio Salmeron Work Phone: [facility] Start: 03-04-2022 Telephone encounter Carlos vasquez DO Work Phone: Hematology/Oncology Comment on above: New Patient Start: 03-04-2022 End: 03-04-[address] Silverio Salmeron Work Phone: [facility] Start: 02-12-2022 End: 02-12-[address] Silverio Salmeron Work Phone: [facility] Start: 02-10-2022 End: 02-10-[address] Silverio Salmeron Work Phone: [facility] Start: 01-15-2022 End: 01-15-[address] Silverio Salmeron Work Phone: [facility] Start: 01-15-2022 End: 01-15-[address] Silverio Salmeron Work Phone: [facility]/Neurology Start: 01-02-2022 End: 01-02-[address] Silverio Salmeron Work Phone: [facility] Start: 12-30-2021 End: 12-30-[address] Silverio Salmeron Work Phone: [facility] Start: 12-02-2021 End: 12-02-[address] Silverio Salmeron Work Phone: [facility] Start: 11-19-2021 Non-patient / Non-visit Dr. Lizzette Salmeron Work Phone: [facility] Start: 11-19-2021 End: 11-19-2021 Admission to same day surgery center Dr. Silverio Salmeron Work Phone: [facility] Start: 11-14-[address] Silverio Salmeron Work Phone: [facility] Start: 11-12-2021 Non-patient / Non-visit Dr. Lizzette Salmeron Work Phone: [facility] Start: 11-12-2021 End: 11-12-2021 Admission to same day surgery center Dr. Silverio Salmeron Work Phone: [facility]End[facility] Start: 10-29-[address] Silverio Salmeron Work Phone: [facility]Cat [facility], [facility] Procedures Date Procedure Procedure Detail Performing Clinician Start: 07-28-[address] Silverio Salmeron Work Phone: Start: 06-10-2023 MRI of joint of lower extremity Dr. Silverio Salmeron Work Phone: Start: 06-08-2023 Radiologic examination of knee Dr. Silverio Salmeron Work Phone: Start: 02-04-[address] Silverio lynch Work Phone: Start: 02-02-2023 MRI of brain with contrast Dr. Silverio lynch Work Phone: Start: 01-21-2023 Radiologic examination of knee Dr. Silverio Salmeron Work Phone: Start: 12-09-[address] Silverio Salmeron Work Phone: Start: 11-26-2022 Radiologic examination of knee Dr. Silverio Salmeron Work Phone: Start: 11-18-[address] Silverio Salmeron Work Phone: Start: 11-10-2022 Radiologic examination osseous survey compl Carlos A Masci DO Work Phone: Start: 11-04-2022 MRI of cervical spine Dr. Silverio Salmeron Work Phone: Start: 11-04-2022 MRI of lumbar spine Dr. Silverio Salmeron Work Phone: Start: 10-30-2022 X-ray of eye for foreign body Dr. iSlverio Salmeron Work Phone: Start: 10-08-2022 Plain chest X-ray Dr. Silverio Salmeron Work Phone: Start: 10-08-2022 CT angiography of neck vessels Dr. Silverio Salmeron Work Phone: Start: 06-27-2022 X-ray of lumbar spine, two or three views Dr. Silverio Salmeron Work Phone: Start: 06-18-2022 Cardiovascular stress test using pharmacologic stress agent Dr. Silverio Salmeron Work Phone: Start: 03-31-2022 Adult depression screening assessment Carlos Cordelia SZYMANSKI Work Phone: Start: 03-18-2022 Radiologic examination osseous survey compl Carlos Storey Work Phone: Start: 12-30-2021 Radiologic examination of knee Dr. Silverio Salmeron Work Phone: Start: 11-19-2021 Radiologic examination of knee Dr. Silverio Salmeron Work Phone: Start: 11-06-2021 Nasal Screen MRSA/MSSA Dr. Silverio Salmeron Work Phone: Start: 10-29-2021 MRI of lower extremity Dr. Silverio Salmeron Work Phone: Start: 08-13-2017 Adult depression screening assessment Carlos Cordelia SZYMANSKI Work Phone: Start: 07-13-2017 Lipid 1996 panel - Serum or Plasma [facility] Work Phone: H/O: surgery History of metal removed from eye Dr. Silverio Salmeron Work Phone: Plan of Treatment Date Care Activity Detail Author Start: 2033 RSV Vaccine (1 - 1-d ose 75+ series) RSV Vaccine (1 - 1-dose 75+ series) [facility] Start: 06-17-2032 Urine microalbumin profile DTaP,Tdap,Td Vaccine (4 - Td or Tdap) [facility] Start: 05-01-2028 Diabetes Screening Diabetes Screenin [facility] Start: 10-31-2027 Diabetes Screening Diabetes Screenin g [facility] Start: 11-06-2026 Diabetes Screening Diabetes Screenin g [facility] Start: 11-09-2025 End: 11-09-2025 ambulatory 11/09/2025 9:10 AM EST Visit (SP) Office Hematology/Oncology [address] [place] [id number] Carlos Storey DO [address] [place] [id number] 1YR OV* Hematology/Oncology Comment on above: 1YR OV* Start: 11-07-2025 End: 11-07-2025 ambulatory 11/07/2025 10:30 AM EST Results Only Garth Ackerman [facility] [address] [place] [address] CBC/CMP/MM LAB (NO URINE) [facility] Ack[facility] Comment on above: CBC/CMP/MM LAB (NO U RINE) Start: 11-02-2025 End: 11-02-2025 ambulatory 11/02/2025 8:30 AM EST Visit (SP) Office Hematology/Oncology [address] [place] [address] Carlos Storey DO [address] [place] [address] 6 MO OV*LABS 10/26 Hematology/Oncology Comment on above: 6 MO OV*LABS 10/26 Start: 10-31-2025 DIABETES SCREEN DIABETES SCREEN [facility] Start: 10-26-2025 End: 10-26-2025 ambulatory 10/26/2025 9:00 AM EST Results Only Garth Ackerman [facility] [address] [place] [address] CBC/CMP/MM labs (no urine)/Ganglioside antibodies * Garth Ackerman [facility] Comment on above: CBC/CMP/MM labs (no urine)/Ganglioside antibodies * Start: 08-25-2025 ambulatory Ambulatory Facility:[facility] Start: 05-03-2025 End: 05-03-2025 ambulatory 05/03/2025 11:30 AM EDT Visit (SP) Office Hematology/Oncology [address] [place] [id number] Carlos Storey DO [address] [place] [address] 1YR OV* Hematology/Oncology Comment on above: 1YR OV* Start: 05-01-2025 End: 05-01-2025 ambulatory 05/01/2025 10:00 AM EDT Results Only Garth Ackerman [facility] [address] [place] [address] CBC/CMP/MM LAB (NO URINE) [facility] Comment on above: CBC/CMP/MM LAB (NO U RINE) Start: 03-18-2025 DIABETES SCREEN DIABETES SCREEN [facility] Start: 01-24-2025 Covid-19 Vaccine () Covid-19 Vaccine () [facility] Start: 12-06-2024 Shingrix Vaccine (2 of 2) العلي grix Vaccine (2 of 2) [facility] Start: 11-23-2024 Advance Directive Discussion Advance Directive Discussion [facility] Start: 11-09-2024 End: 11-09-2024 ambulatory 11/09/2024 10:30 AM EST Results Only [facility] [address] [place] [address] LABS [facility] Comment on above: LABS Start: 11-07-2024 End: 02-06-2025 GANGLIOSIDE ANTIBODIES GANGLIOSIDE ANTIBODIES Lab Routine Monoclonal gammopathy Polyneuropathy Expected: 11/07/2024, Expires: 02/06/2025 [facility] Work Phone: Comment on above: Expected: 11/07/2024 , Expires: 02/06/2025 Start: 11-07-2024 End: 11-07-2024 ambulatory 11/07/2024 8:50 AM EST Visit (SP) Office Hematology/Oncology [address] [place] [address] Carlos Storey DO [address] [place] [address] 1 YR OV/LABS 10/31* Hematology/Oncology Comment on above: 1 YR OV/LABS 10/31* Start: 11-06-2024 BP Controlled (<130/80) BP Controlle d (<130/80) [facility] Start: 10-31-2024 End: 12-09-2024 ambulatory 10/31/2024 8:00 AM EST Results Only [facility] [address] [place] [address] CBC/CMP/Myeloma labs/Serum viscosity [facility] Comment on above: CBC/CMP/Myeloma labs /Serum viscosity Start: 07-24-2024 Covid-19 Vaccine () Covid-19 Vaccine () [facility] Start: 07-24-2024 Influenza vaccination Influenza Vacc ine (#1) [facility] Start: 12-23-2023 BP CONTROLLED (<130/80) BP CONTROLLE D (<130/80) [facility] Start: 11-23-2023 Advance Directive Discussion Advance Directive Discussion [facility] Start: 11-07-2023 BP CONTROLLED (<130/80) BP CONTROLLE D (<130/80) [facility] Start: 2023 Pneumococcal Vaccine : 65+ (1 of 1 - PCV) Pneumococcal Vaccine: 65+ (1 of 1 - PCV) [facility] Start: 07-24-2023 Influenza vaccination INFLUENZA (#1) [facility] Start: 07-24-2023 Medicare Annual Well ness Visit Medicare Annual Wellness Visit [facility] Start: 03-31-2023 Adult depression screening assessment DEPRESSION SCREENING [facility] Start: 01-15-2023 End: 03-17-2023 CRYOGLOBULIN, QUAL, REFLEX TO ELDER AND IGG,A,M [facility] Work Phone: Comment on above: Expected: 01/15/2023 , Expires: 03/17/2023 Start: 01-13-2023 End: 03-15-2023 COLD AGGLUTIININS COLD AGGLUTIININS Lab Routine IgM monoclonal gammopathy of uncertain significance Expected: 01/13/2023, Expires: 03/15/2023 [facility] Work Phone: Comment on above: Expected: 01/13/2023 , Expires: 03/15/2023 Start: 01-13-2023 End: 03-15-2023 CRYOGLOBULIN, QUAL, REFLEX TO ELDER AND IGG,A,M CRYOGLOBULIN, QUAL, REFLEX TO ELDER AND IGG,A,M Lab Routine IgM monoclonal gammopathy of uncertain significance Expected: 01/13/2023, Expires: 03/15/2023 [facility] Work Phone: Comment on above: Expected: 01/13/2023 , Expires: 03/15/2023 Start: 12-14-2022 End: 02-13-2023 GANGLIOSIDE ANTIBODIES GANGLIOSIDE ANTIBODIES Lab Routine IgM monoclonal gammopathy of uncertain significance Neuropathy Expected: 12/14/2022, Expires: 02/13/2023 [facility] Work Phone: Comment on above: Expected: 12/14/2022 , Expires: 02/13/2023 Start: 12-10-2022 Patient discharge [facility] Start: 12-10-2022 Provision of activit y privileges [facility] Start: 12-09-2022 Oxygen therapy [facility] Start: 12-09-2022 Following clinical pathway protocol [facility] Start: 12-09-2022 Catheterization of vein [facility] Start: 12-09-2022 Deep breathing and coughing exercises [facility] Start: 12-09-2022 Elevation of head of bed [facility] Start: 12-09-2022 Incentive spirometry [facility] Start: 12-09-2022 Notification of physician [facility] Start: 12-09-2022 Provision of activit y privileges [facility] Start: 12-09-2022 Vital signs measurements [facility] Start: 12-09-2022 [facility] Start: 12-09-2022 Admission procedure [facility] Start: 11-23-2022 DEPRESSION ASSESSMENT DEPRESSION ASS ESSMENT [facility] Start: 11-18-2022 Colsc flx w/rmvl of tumor polyp lesion snare tq COLONOSCOPY W/LESION REMOVAL [facility] Start: 11-18-2022 Patient discharge [facility] Start: 10-31-2022 End: 12-31-2022 [id number] [Mass/volume] in Serum or Plasma B2 MICROGLOBULIN B Lab Routine Gammopathy, benign monoclonal Expected: 10/31/2022, Expires: 12/31/2022 [facility] Work Phone: Comment on above: Expected: 10/31/2022 , Expires: 12/31/2022 Start: 10-31-2022 End: 12-31-2022 CBC W Auto Differential panel - Blood CBC + DIFF Lab STAT Gammopathy, benign monoclonal Expected: 10/31/2022, Expires: 12/31/2022 [facility] Work Phone: Comment on above: Expected: 10/31/2022 , Expires: 12/31/2022 Start: 10-31-2022 End: 12-31-2022 Comprehensive metabolic 2000 panel - Serum or Plasma COMP METABOLIC PANEL Lab STAT Gammopathy, benign monoclonal Expected: 10/31/2022, Expires: 12/31/2022 [facility] Work Phone: Comment on above: Expected: 10/31/2022 , Expires: 12/31/2022 Start: 10-31-2022 End: 12-31-2022 KAPPA/DOTSON,FREE,SER KAPPA/DOTSON,FREE,SER Lab Routine Gammopathy, benign monoclonal Expected: 10/31/2022, Expires: 12/31/2022 [facility] Work Phone: Comment on above: Expected: 10/31/2022 , Expires: 12/31/2022 Start: 10-31-2022 End: 12-31-2022 MONOCLONAL PROT UR W/INTERP MONOCLONAL PROT UR W/INTERP Lab Routine Gammopathy, benign monoclonal Expected: 10/31/2022, Expires: 12/31/2022 [facility] Work Phone: Comment on above: Expected: 10/31/2022 , Expires: 12/31/2022 Start: 10-31-2022 End: 12-31-2022 MONOCLONAL PROTEIN, SERUM (BLOOD) MONOCLONAL PROTEIN, SERUM (BLOOD) Lab Routine Gammopathy, benign monoclonal Expected: 10/31/2022, Expires: 12/31/2022 [facility] Work Phone: Comment on above: Expected: 10/31/2022 , Expires: 12/31/2022 Start: 10-31-2022 End: 12-31-2022 PROTEIN ELECT RND UR W/INTERP PROTEIN ELECT RND UR W/INTERP Lab Routine Gammopathy, benign monoclonal Expected: 10/31/2022, Expires: 12/31/2022 [facility] Work Phone: Comment on above: Expected: 10/31/2022 , Expires: 12/31/2022 Start: 10-31-2022 End: 12-31-2022 PROTEIN ELECTROPHORESIS SERUM W/INTERP PROTEIN ELECTROPHORESIS SERUM W/INTERP Lab Routine Gammopathy, benign monoclonal Expected: 10/31/2022, Expires: 12/31/2022 [facility] Work Phone: Comment on above: Expected: 10/31/2022 , Expires: 12/31/2022 Start: 10-31-2022 End: 11-29-2023 Radiologic examination osseous survey compl XR BONE SURVEY ROUTINE Radiology Routine Gammopathy, benign monoclonal Expected: 10/31/2022, Expires: 11/29/2023 [facility] Work Phone: Comment on above: Expected: 10/31/2022 , Expires: 11/29/2023 Start: 09-10-2022 Patient referral [facility] Work Phone: Start: 07-24-2022 Influenza vaccination [facility] Start: 07-16-2022 PROSTATE CANCER SCRE ENING DISCUSSION PROSTATE CANCER SCREENING DISCUSSION [facility] Start: 07-16-2022 Prostate specific an tigen measurement Prostate Cancer Screening Discussion [facility] Start: 07-13-2022 Lipid panel Lipid Screening [facility] Start: 07-13-2022 LIPID SCREEN LIPID SCREEN [facility] Start: 06-17-2022 Smpl repair scalp/neck/ax/genit/trunk 2.6-7.5cm RPR S/N/AX/GEN/TRNK2.6-7.5CM [facility] Work Phone: Start: 04-29-2022 End: 06-29-2022 PT panel - Platelet poor plasma by Coagulation assay PROTHROMBIN TIME/PT Lab STAT Chronic anticoagulation Expected: 04/29/2022 (Approximate), Expires: 06/29/2022 [facility] Work Phone: Comment on above: Expected: 04/29/2022 (Approximate), Expires: 06/29/2022 Start: 04-02-2022 End: 06-02-2022 MAG IGM & SGPG IGM [facility] Work Phone: Comment on above: Expected: 04/02/2022 , Expires: 06/02/2022 Start: 03-18-2022 End: 05-18-2022 [id number] [Mass/volume] in Serum or Plasma [facility] Work Phone: Comment on above: Expected: 03/18/2022 , Expires: 05/18/2022 Start: 03-18-2022 End: 05-18-2022 Chronic hepatitis differentiation between hepatitis B and C virus panel - Serum or Plasma [facility] Work Phone: Comment on above: Expected: 03/18/2022 , Expires: 05/18/2022 Start: 03-18-2022 End: 05-18-2022 Methylmalonate [Moles/volume] in Serum or Plasma [facility] Work Phone: Comment on above: Expected: 03/18/2022 , Expires: 05/18/2022 Start: 03-18-2022 End: 05-18-2022 MONOCLONAL PROTEIN, SERUM (BLOOD) [facility] Work Phone: Comment on above: Expected: 03/18/2022 , Expires: 05/18/2022 Start: 03-18-2022 End: 05-18-2022 Natriuretic peptide.B prohormone N-Terminal [Mass/volume] in Serum or Plasma [facility] Work Phone: Comment on above: Expected: 03/18/2022 , Expires: 05/18/2022 Start: 03-18-2022 End: 05-18-2022 PROTEIN ELECTROPHORESIS SERUM W/INTERP [facility] Work Phone: Comment on above: Expected: 03/18/2022 , Expires: 05/18/2022 Start: 03-18-2022 End: 05-18-2022 RBC FOLATE [facility] Work Phone: Comment on above: Expected: 03/18/2022 , Expires: 05/18/2022 Start: 03-18-2022 End: 05-18-2022 VITAMIN B12 BLOOD [facility] Work Phone: Comment on above: Expected: 03/18/2022 , Expires: 05/18/2022 Start: 02-10-2022 COVID-19 VACCINE (4 - Booster for Moderna series) COVID-19 VACCINE (4 - Booster for Moderna series) [facility] Start: 12-08-2021 COVID-19 VACCINE (4 - Booster for Moderna series) COVID-19 VACCINE (4 - Booster for Moderna series) [facility] Start: 11-23-2021 DEPRESSION ASSESSMENT DEPRESSION ASS ESSMENT [facility] Start: 11-19-2021 Anesth open/surg art hrs total knee arthroplasty ANESTH KNEE ARTHROPLASTY [facility] Work Phone: Start: 11-19-2021 Arthrp kne condyle&p latu medial&lat compartments TOTAL KNEE ARTHROPLASTY [facility] Work Phone: Start: 11-19-2021 Injection aa&/strd femoral nerve NJX AA&/STRD FEMORAL NERVE [facility] Work Phone: Start: 11-12-2021 Colonoscopy w/biopsy single/multiple COLONOSCOPY AND BIOPSY [facility] Work Phone: Start: 11-12-2021 Colsc flx w/rmvl of tumor polyp lesion snare tq COLONOSCOPY W/LESION REMOVAL [facility] Work Phone: Start: 07-13-2020 DIABETES SCREEN DIABETES SCREEN [facility] Start: 08-13-2018 Adult depression screening assessment DEPRESSION SCREENING [facility] Start: 08-13-2018 ANNUAL PCP TEAM MANNEQUIN WIG MAKER ALYSSA DISEASE VISIT ANNUAL PCP TEAM CHRONIC DISEASE VISIT [facility] Start: 2008 Pneumococcal Vaccine : 50+ (1 of 1 - PCV) Pneumococcal Vaccine: 50+ (1 of 1 - PCV) [facility] Start: 2008 SHINGRIX VACCINE (1 of 2) العلي GRIX VACCINE (1 of 2) [facility] Start: 2003 COLOGUARD (FIT-DNA) COLOGUARD (FIT-D NA) [facility] Start: 2003 Colonoscopy COLONOSCOPY [facility] Start: 2003 COLORECTAL CANCER SCREENING COLORECTAL CANCER SCREENING [facility] Start: [address] COLONOGRAPHY [facility] Start: 2003 FECAL OCCULT BLOOD FECAL OCCULT BLOO D [facility] Start: 2003 Screening for malign ant neoplasm of colon [facility] Start: 2003 SIGMOIDOSCOPY SIGMOIDOSCOPY [facility] Start: 1977 Urine microalbumin profile DTAP,TDAP,TD (1 - Tdap) [facility] Start: 1976 ANNUAL PCP TEAM MANNEQUIN WIG MAKER ALYSSA DISEASE VISIT ANNUAL PCP TEAM CHRONIC DISEASE VISIT [facility] Start: 1976 Anxiety Screening Anxiety Screening [facility] Start: 1976 BP CONTROLLED (<130/80) BP CONTROLLE D (<130/80) [facility] Start: 1976 Depression Screening Depression Scre ening [facility] Start: 1976 HEPATITIS C SCREENING HEPATITIS C SC REENING [facility] Start: 1976 HIV SCREENING HIV SCREENING [facility] Start: 1976 HIV screening HIV Screening [facility] Start: 1970 Adult depression screening assessment DEPRESSION SCREENING [facility] Start: 1963 COVID-19 VACCINE (1) COVID-19 VACCIN E (1) [facility] Ankle brachial press ure index [facility] Work Phone: End: 05-02-2023 CT WHOLE BODY SKULL TO KNEE WO IVCON CT WHOLE BODY SKULL TO KNEE WO IVCON Radiology Routine Multiple myeloma not having achieved remission (HCC) 1 Occurrences starting 04/02/2022 until 05/02/2023 [facility] Work Phone: Comment on above: 1 Occurrences starti ng 04/02/2022 until 05/02/2023 Diagnostic bone donato ow biopsies IMAGING GUIDED BIOPSY BONE MARROW (HEMATOLOGY) Radiology Routine Monoclonal gammopathy Neuropathy Ordered: 04/02/2022 [facility] Work Phone: Comment on above: Ordered: 04/02/2022 [place] measurement [facility] Work Phone: MONOCLONAL PROT 24 U R W/INTERP MONOCLONAL PROT 24 UR W/INTERP Lab Routine Monoclonal gammopathy Ordered: 03/18/2022 [facility] Work Phone: Comment on above: Ordered: 03/18/2022 Patient Education ED Laceration: All Closures [facility] Work Phone: Patient referral [facility] Work Phone: PROT ELEC UR 24HR W/ M SPIKE (P) PROT ELEC UR 24HR W/M SPIKE (P) Lab Routine Monoclonal gammopathy Ordered: 03/18/2022 [facility] Work Phone: Comment on above: Ordered: 03/18/2022 PROT ELEC UR 24HR W/ M SPIKE (P) PROT ELEC UR 24HR W/M SPIKE (P) Lab Routine Gammopathy, benign monoclonal Ordered: 10/30/2022 [facility] Work Phone: Comment on above: Ordered: 10/30/2022 PROT ELEC UR 24HR W/ M SPIKE AND INTERP PROT ELEC UR 24HR W/M SPIKE AND INTERP Lab Routine Monoclonal gammopathy Ordered: 03/18/2022 [facility] Work Phone: Comment on above: Ordered: 03/18/2022 PROT ELEC UR 24HR W/ M SPIKE AND INTERP PROT ELEC UR 24HR W/M SPIKE AND INTERP Lab Routine Gammopathy, benign monoclonal Ordered: 10/30/2022 [facility] Work Phone: Comment on above: Ordered: 10/30/2022 Protein [Mass/time] in 24 hour Urine PROTEIN 24 HR URINE Lab Routine Monoclonal gammopathy Ordered: 03/18/2022 [facility] Work Phone: Comment on above: Ordered: 03/18/2022 Protein [Mass/time] in 24 hour Urine PROTEIN 24 HR URINE Lab Routine Gammopathy, benign monoclonal Ordered: 10/30/2022 [facility] Work Phone: Comment on above: Ordered: 10/30/2022 Radiologic examinati on osseous survey compl XR BONE SURVEY ROUTINE Radiology Routine Monoclonal gammopathy 03/18/2022 4:14 PM EDT [facility] Work Phone: US Carotid arteries [facility] Immunizations Immunization Date Immunization Notes Care Provider Fa eddie 09-11-2023 influenza virus vaccine, unspecified formulation [facility] Work Phone: [facility] 11-12-2022 influenza, injectabl e, quadrivalent, preservative free Dr. Silverio Salmeron Work Phone: [facility] 11-12-2022 influenza, seasonal, injectable Dr. Silverio Salmeron Work Phone: [facility] 06-17-2022 tetanus toxoid, redu mario diphtheria toxoid, and acellular pertussis vaccine, adsorbed Dr. Silverio Salmeron Work Phone: [facility] 12-21-2018 tetanus toxoid, redu mario diphtheria toxoid, and acellular pertussis vaccine, adsorbed Dr. Silverio Salmeron Work Phone: [facility] Payers Date Payer Category Payer Self-pay [id number] 2023 Unknown [employer] [id number] 2023-Present [phone] [address] [place] [address] Indemnity [id number] .[id number] 2023 Unknown [id number] 2023 Medicare [id number]. 1.13.159.2 .7.3.068846.315 2023 Medicare [id number] 2022 Private Health Insurance [id number] .[id number] .7.3.602579.315 2021 Private Health Insurance [id number] 2021 Private Health Insurance [id number] .[id number] Unknown [id number] Unknown [id number] Unknown [id number] Unknown [id number] 2.840.1.688491.3.579.2 .462 Unknown [id number] 2.840.1.163174.3.579.2 .462 Unknown [id number] 2.840.1.610535.3.579.2 .462 Unknown [id number] 2.840.1.346513.3.579.2 .462 Unknown [id number] 2.840.1.849973.3.579.2 .462 Unknown [id number] 2.840.1.467055.3.579.2 .462 Unknown [id number] 2.840.1.649824.3.579.2 .462 Unknown [id number] 2.840.1.634937.3.579.2 .462 Unknown [id number] 2.840.1.583206.3.579.2 .462 Unknown [id number] 2.840.1.543633.3.579.2 .462 Unknown [id number] 2.840.1.024425.3.579.2 .462 Unknown [id number] 2.16.840.1.607816.3.579.2 .462 Unknown [id number] 2.16.840.1.481370.3.579.2 .462 Unknown [id number] 2.16.840.1.166715.3.579.2 .462 Unknown [id number] 2.16.840.1.871155.3.579.2 .462 Unknown [id number] 2.16.840.1.874486.3.579.2 .462 Unknown [id number] 2.16.840.1.755992.3.579.2 .462 Unknown [id number] 2.16.840.1.921605.3.579.2 .462 Unknown [id number] 2.16.840.1.225537.3.579.2 .462 Unknown [id number] 2.16.840.1.407035.3.579.2 .462 Unknown [id number] 2.16.840.1.701918.3.579.2 .462 Unknown [id number] 2.16.840.1.208460.3.579.2 .462 Unknown [id number] 2.16.840.1.549732.3.579.2 .462 Unknown [id number] 2.16.840.1.886909.3.579.2 .462 Unknown [id number] 2.16.840.1.598034.3.579.2 .462 Unknown [id number] 2.16.840.1.563677.3.579.2 .462 Unknown [id number] 2.16.840.1.933437.3.579.2 .462 Unknown [id number] 2.16.840.1.867088.3.579.2 .462 Unknown [id number] 2.16.840.1.273261.3.579.2 .462 Unknown [id number] 2.16.840.1.860832.3.579.2 .462 Social History Date Type Detail Facility Start: 02-10-2022 End: 09-03-2023 Tobacco smoking status NHIS Unknown if ever smoked [facility] Start: 08-08-2020 Occasional [facility] Start: 08-08-2020 None [facility] Start: 08-08-2020 Non-smoker [facility] Start: 1960 Sex Assigned At Male W [facility] Start: 06-26-2017 End: 11-07-2022 Tobacco smoking status NHIS Never smoked tobacco [facility] Start: 08-13-2017 End: 05-02-2022 Alcohol intake Current drinker of alcohol (finding) [facility] Start: 06-26-2017 History SDOH Alcohol Comment social drinker [facility] Start: 1960 Sex Assigned At Not on file [facility] Start: 06-26-2017 End: 11-07-2022 Tobacco use and exposure Smokeless tobacco non-user [facility] Start: 03-08-2022 End: 04-17-2022 Exposure to SARS-CoV-2 (event) Not sure [facility] Start: 11-07-2022 End: 05-03-2025 Alcohol intake Ex-drinker (finding) [facility] Start: 12-23-2022 End: 11-06-2023 History of Social function [facility] Start: 12-23-2022 End: 11-06-2023 Tobacco use panel [facility] Adult Depression Screening Assessment 0 [facility] Medical Equipment Procedure Code Equipment Code Equipment Origin al Text Equipment Identifier Dates Endarterectomy, carotid ([id number]) Cardiovascular patch, animal-derived [id number] FDA Start: 12-09-2022 Endarterectomy, carotid Ligation clip, metallic [id number] FDA Start: 12-09-2022 Endarterectomy, carotid Ligation clip, metallic [id number] FDA Start: 12-09-2022 Colonoscopy RESOLUTION 360 C LIP 235 CM FDA Start: 11-12-2021 Colonoscopy RESOLUTION 360 C LIP 235 CM FDA Start: 11-12-2021 Colonoscopy RESOLUTION 360 C LIP 235 CM FDA Start: 11-12-2021 Colonoscopy RESOLUTION 360 C LIP 235 CM FDA Start: 11-12-2021 Colonoscopy RESOLUTION 360 C LIP 235 CM FDA Start: 11-12-2021 Colonoscopy RESOLUTION 360 C LIP 235 CM FDA Start: 11-12-2021 Colonoscopy RESOLUTION 360 C LIP 235 CM FDA Start: 11-12-2021 Colonoscopy RESOLUTION 360 C LIP 235 CM FDA Start: 11-12-2021 Colonoscopy RESOLUTION 360 C LIP 235 CM FDA Start: 11-12-2021 Colonoscopy RESOLUTION 360 C LIP 235 CM FDA Start: 11-12-2021 Colonoscopy RESOLUTION 360 C LIP 235 CM FDA Start: 11-12-2021 Colonoscopy RESOLUTION 360 C LIP 235 CM FDA Start: 11-12-2021 Colonoscopy RESOLUTION 360 C LIP 235 CM FDA Start: 11-12-2021 Colonoscopy RESOLUTION 360 C LIP 235 CM FDA Start: 11-12-2021 Colonoscopy RESOLUTION 360 C LIP 235 CM FDA Start: 11-12-2021 Colonoscopy RESOLUTION 360 C LIP 235 CM FDA Start: 11-12-2021 Colonoscopy RESOLUTION 360 C LIP 235 CM FDA Start: 11-12-2021 Colonoscopy RESOLUTION 360 C LIP 235 CM FDA Start: 11-12-2021 Colonoscopy RESOLUTION 360 C LIP 235 CM FDA Start: 11-12-2021 Colonoscopy RESOLUTION 360 C LIP 235 CM FDA Start: 11-12-2021 Colonoscopy RESOLUTION 360 C LIP 235 CM FDA Start: 11-12-2021 Colonoscopy RESOLUTION 360 C LIP 235 CM FDA Start: 11-12-2021 Colonoscopy RESOLUTION 360 C LIP 235 CM FDA Start: 11-12-2021 Colonoscopy RESOLUTION 360 C LIP 235 CM FDA Start: 11-12-2021 Colonoscopy RESOLUTION 360 C LIP 235 CM FDA Start: 11-12-2021 Colonoscopy RESOLUTION 360 C LIP 235 CM FDA Start: 11-12-2021 Colonoscopy RESOLUTION 360 C LIP 235 CM FDA Start: 11-12-2021 Colonoscopy RESOLUTION 360 C LIP 235 CM FDA Start: 11-12-2021 Colonoscopy RESOLUTION 360 C LIP 235 CM FDA Start: 11-12-2021 ([id number]) Metal-backed pat bertin prosthesis ()[id number] FDA Start: 11-19-2021 ([id number]) Coated knee femu r prosthesis ()[id number] FDA Start: 11-19-2021 ([id number]) Coated knee tibi a prosthesis ()[id number] FDA Start: 11-19-2021 ([id number]) Tibial insert ()[id number] FDA Start: 11-19-2021 Goals Date Patient Goal Desired Activity /State Functional Status Date Assessment Result Facility 12-10-2022 Functional status Ambulates;Chair [facility] Work Phone: Mental Status Date Assessment Result Facility 12-10-2022 Cognitive function Voice/Name [facility] Work Phone: 11-18-2022 Cognitive function Voice/Name [facility] Work Phone: 11-18-2022 Cognitive function Patient Orien tation Person;Place;Time [facility] Work Phone: 11-19-2021 Cognitive function Voice/Name;Touch/Shaki ng [facility] Work Phone: 11-12-2021 Cognitive function Level Of Cons ciousness Awake;Alert;Appropriate [facility] Work Phone: 11-12-2021 Cognitive function Voice/Name [facility] Work Phone: Clinical Notes 03-04-2022 to 05-03-2025 Carlos Storey DO - 05/03/2025 11:31 AM EDTTelephone Encounter - Danielle Howell - 11/25/2024 8:58 AM ESTTelephone Encounter - Danielle Howell - 11/25/2024 8:58 AM EST Note Date & Type Note Facility 05-03-2025 Note HNO ID: [id number] Author: CARLOS STOREY DO Service: ? Author Type: Physician Type: Progress Notes Filed: 05/03/2025 15:33 Note Text: Oncologic problem(s): 1) IgG kappa monoclonal gammopathy. 2) IgM lambda monoclonal gammopathy. 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 4) Low level complement fixing AIHA. HPI: The patient is a 64-year-old male with a PMH significant for HTN, [...] had an EMG performed on 01/15/2022 at [facility]. The study was an abnormal test [...] or with exertion. He was admitted to [facility] in July 2020 for an episode of chest pain. [place] was ruled out. He underwent a stress [...] Had left knee replacement 10/2021. Had right carotid endarterectomy by Dr. Gilbert 12/09/2022. On Plavix and ASA. Operative report reviewed in [facility] system. Was noted to have tremor by his neurologist--elevated ammonia level--started on Lactulose. Stopped drinking altogether in 08/2022. Hasn't had alcohol since. Has lost ~30 lbs since April by quitting drinking and cutting calories. I feel much better. Presents for ongoing oncologic management. OV 11/06/2023: Saw neurologist at [facility]. Received 4 injections total--2 cervical and 2 lumbar. On medical marijuana. No alcohol. Home blood glucose 150-160s. Occasional numbness in fingertips--comes and goes--stable. Sensory neuropathy LEs stable--numb and burning from mid calf to toes--stable. Not on any symptomatic medication. Balance is normal. Presents for ongoing hematologic management. Interim history: Drinking beer only. Typically only if working outside but can drink up to 4-5 beers at a time. Usually total 8-10 per week. Resumed drinking b/c sciatica flares when working outside. Seeing neurology at [facility] and (more content not included)... [facility] 05-03-2025 History of Present illness Narrative Oncologic problem(s): 1) IgG kappa monoclonal gammopathy. 2) IgM lambda monoclonal gammopathy. 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 4) Low level complement fixing AIHA. HPI: The patient is a 64-year-old male with a PMH significant for HTN, [...] had an EMG performed on 01/15/2022 at [facility]. The study was an abnormal test [...] or with exertion. He was admitted to [facility] in July 2020 for an episode of chest pain. [place] was ruled out. He underwent a stress [...] Had left knee replacement 10/2021. Had right carotid endarterectomy by Dr. Gilbert 12/09/2022. On Plavix and ASA. Operative report reviewed in [facility] system. Was noted to have tremor by his neurologist--elevated ammonia level--started on Lactulose. Stopped drinking altogether in 08/2022. Hasn't had alcohol since. Has lost ~30 lbs since April by quitting drinking and cutting calories. I feel much better. Presents for ongoing oncologic management. OV 11/06/2023: Saw neurologist at [facility]. Received 4 injections total--2 cervical and 2 lumbar. On medical marijuana. No alcohol. Home blood glucose 150-160s. Occasional numbness in fingertips--comes and goes--stable. Sensory neuropathy LEs stable--numb and burning from mid calf to toes--stable. Not on any symptomatic medication. Balance is normal. Presents for ongoing hematologic management. Interim history: Drinking beer only. Typically only if working outside but can drink up to 4-5 beers at a time. Usually total 8-10 per week. Resumed drinking b/c sciatica flares when working outside. Seeing neurology at [facility] and had epidural injection. Helps, but duration of effect varies. Still medical MJ. Smokes it. Helps with right sciatica pain. Feet remain numb, but not bothering him. No longer having burning pain in lower legs. Fingertip neuropathy remains resolved. Right sided sciatica improved as well. PMH, medications and allergies personally reviewed by me today. Any changes documented in appropriate section. ROS: Constitutional: Denies episodes of fever and night sweats. Normal appetite. Neuro: Denies FRANK. HEENT: No recent change in voice, vision or hearing. Resp: Denies cough, wheeze and hemoptysis. Denies shortness of breath at rest. Denies RUIZ. CVS: Denies exertional chest pain, PND, orthopnea and LE edema. GI: Denies reflux, n/v, change in bowel habits and abdominal pain. : Denies dysuria or gross hematuria. Endo: Denies hot flashes. Musculoskeletal: See above. Derm: Denies rash. Heme: Denies unusual bleeding and unexplained bruising. Psych: Stable mood. Social history: Lifelong non-smoker. Averaged about 6 cans of beer a week--non since 08/2022--started again (as described above) this spring. No history of drug use. and lives with his Kristyn in [place]. Family history: He has a brother who had prostate cancer. PHYSICAL EXAM: Vitals: Blood pressure 110/63, pulse (!) 59, temperature 36.8 C (98.2 F), temperature source Temporal, height 183 cm (6' 0.05), weight 119.5 kg (263 lb 8 oz), SpO2 96%. Well-appearing and in no acute distress. EYES: Sclerae are anicteric bilaterally. LYMPHATIC: There is no palpable cervical or supraclavicular adenopathy. CARDIOVASCULAR: Rhythm is regular. ABDOMEN: The abdomen is nondistended. No organomegaly. No tenderness. Extremities: No swelling or edema. SKIN: No jaundice or rash. No petechiae. 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 No focal motor weakness. DTRs are symmetric and normal. MUSCULOSKELETAL: No joint swelling or tenderness. No muscle wasting. IMAGING: Bone survey 03/18/2022: Unremarkable bone survey. [...] (primary encounter diagnosis) (D47.2) IgG monoclonal gammopathy Polyneuropathy. Assessment: -The patient is a 64-year-old male with a past medical history outlined above who was diagnosed with polyneuropathy manifested as sensory neuropathy in the toes and soles of the feet with burning sensation of the distal anterior lower extremities bilaterally. Sensory greater than motor on EMG 12/2021. -A serum protein electrophoresis revealed low level biclonal M protein. Low level IgG kappa monoclonal protein and low level IgM lambda monoclonal protein. No detectable monoclonal protein in the urine via 24-hour urine collection. The serum kappa and lambda light chain assay revealed normal levels with normal ratio. Bone survey showed no concerning lesions. No hypercalcemia, anemia or renal dysfunction. -Bone marrow biopsy--No abnormal/clonal PCs by histology or flow. Normal cytogenetics. Negative for amyloid on Congo red staining. -On lithium-- -Antimyelin antibodies negative. -Ganglioside antibody, asialo-GM1 to body low positive. -Whole-body bone CT scan. No adenopathy or lytic lesion identified. -Cryoglobulins negative. -Working diagnosis is IgG kappa monoclonal gammopathy of undetermined significance and IgM lambda monoclonal gammopathy of undetermined significance. - I reviewed his lab work in detail. No significant change from previous. Neuropathy had improved and now remains stable. Unfortunately started drinking again. I discussed with him the importance of abstaining altogether. Discussed repeating workup in 6 months but to contact me in the interim should he develop worsening symptoms of neuropathy.. Plan: -Re-evaluate in 6 months. 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 -Further work-up of anemia significant only for low level complement fixing autoantibody. -Anemia resolved. Plan: -No specific intervention required at this time. Portions of this documentation were copied and pasted from my previous office visit note dated 10/28/2024 in order to provide a cohesive continuity of the history. The note has been reviewed and edited and updated as necessary. I spent a total of 30 minutes on the date of the service which included preparing to see the patient, [id number] patient care, completing clinical documentation, obtaining and/or reviewing separately obtained history, counseling and educating the patient/family/caregiver, ordering medications, tests, or procedures, communicating with other HCPs (not separately reported), and communicating results to the patient/family/caregiver. Carlos Storey DO documented in this encounter [facility] 11-25-2024 Telephone encounter Note Patient is scheduled [facility] 11-25-2024 Miscellaneous Notes Patient is scheduled 1st attempt. Message left for patient to receive below message. Reschedule October lab and office visit to April. Can let him know his follow-up lab work done at the day of the office visit showed stable findings. I would like to do a 6-month follow-up rather than a year as scheduled. Carlos Storey DO documented in this encounter [facility] 11-24-2024 Telephone encounter Note 1st attempt. Message left for patient to receive below message. Reschedule October lab and office visit to April. [facility] Work Phone: 11-23-2024 Telephone encounter Note Can let him know his follow-up lab work done at the day of the office visit showed stable findings. I would like to do a 6-month follow-up rather than a year as scheduled. Carlos Storey DO [facility] Work Phone: 11-07-2024 History of Present illness Narrative Oncologic problem(s): 1) IgG kappa monoclonal gammopathy. 2) IgM lambda monoclonal gammopathy. 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 4) Low level complement fixing AIHA. HPI: The patient is a 64-year-old male with a PMH significant for HTN, [...] had an EMG performed on 01/15/2022 at [facility]. The study was an abnormal test [...] or with exertion. He was admitted to [facility] in July 2020 for an episode of chest pain. [place] was ruled out. He underwent a stress [...] Had left knee replacement 10/2021. Had right carotid endarterectomy by Dr. Gilbert 12/09/2022. On Plavix and ASA. Operative report reviewed in [facility] system. Was noted to have tremor by his neurologist--elevated ammonia level--started on Lactulose. Stopped drinking altogether in 08/2022. Hasn't had alcohol since. Has lost ~30 lbs since April by quitting drinking and cutting calories. I feel much better. Presents for ongoing oncologic management. OV 11/06/2023: Saw neurologist at [facility]. Received 4 injections total--2 cervical and 2 lumbar. On medical marijuana. No alcohol. Home blood glucose 150-160s. Occasional numbness in fingertips--comes and goes--stable. Sensory neuropathy LEs stable--numb and burning from mid calf to toes--stable. Not on any symptomatic medication. Balance is normal. Presents for ongoing hematologic management. Interim history: Right knee replacement last Thursday. To start PT tomorrow. On medical MJ. Smokes it. Has really helped the neuropathy in the calves--used to burn. Feet numb, but not bothering him. Fingertip neuropathy resolved. Right sided sciatica improved as well. PMH, medications and allergies personally reviewed by me today. Any changes documented in appropriate section. ROS: Constitutional: Denies episodes of fever and night sweats. Not significantly fatigued. Normal appetite. Neuro: Denies FRANK. HEENT: No recent change in voice, vision [...] polydipsia. Denies heat and cold intolerance. Musculoskeletal: See above. Derm: Denies rash. Denies jaundice and diffuse pruritis. Heme: Denies unusual bleeding and unexplained bruising. Psych: Improved mood. Social history: Lifelong non-smoker. Averaged about 6 cans of beer a week--non since 08/2022. No history of drug use. and lives with his Kristyn in [place]. Family history: He has a brother who had prostate cancer. PHYSICAL EXAM: Vitals: Blood pressure 157/74, pulse 77, temperature 36.8 C (98.3 F), temperature source Temporal, SpO2 93%. Well-appearing and in no acute distress. EYES: Sclerae are anicteric bilaterally. LYMPHATIC: There is no palpable cervical or supraclavicular adenopathy. CARDIOVASCULAR: Rhythm is regular. ABDOMEN: The abdomen is nondistended. No organomegaly. No tenderness. Extremities: No swelling or edema. SKIN: No jaundice or rash. No petechiae. 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 No focal motor [...] Lymph 1.00 - 4.00 k/uL 3.06 3.06 Sullivan% % 8.1 7.4 Abs Sullivan <0.87 k/uL 1.00 (H) 1.09 (H) Eosin% [...] 0.23 (H) SPE Staff Review Reviewed by Katherine Resendiz MD Reviewed by David York MD, Ph.D ([id number]) M-Protein Concentration 2 <=0.00 g/dL 0.10 (H) 0.20 (H) Component Latest Ref Rng & Units 03/18/2022 10/31/2022 IgG 700 - 1,600 mg/dL 655 (L) 788 IgA 70 - 400 mg/dL 96 90 IgM 40 - 230 mg/dL 197 197 [place] Free, Serum 3.3 - 19.4 mg/L 12.7 [...] motor neuropathy Assessment: -The patient is a 63-year-old male with a past medical history outlined above who was diagnosed with polyneuropathy manifested as sensory neuropathy in the toes and soles of the feet with burning sensation of the distal anterior lower extremities bilaterally. Sensory greater than motor on EMG 12/2021. -A serum protein electrophoresis revealed low level biclonal [...] for amyloid on Congo red staining. -On lithium-- -Antimyelin antibodies negative. -Ganglioside antibody, asialo-GM1 to body low positive. -Whole-body bone CT scan. No adenopathy or lytic lesion identified. -Cryoglobulins negative. -Working diagnosis is IgG kappa monoclonal gammopathy of undetermined significance and IgM lambda monoclonal gammopathy of undetermined significance. -Sensory neuropathy symptoms are improved. Likely combination of diabetic neuropathy with prior heavy alcohol use. -Previous asialo-GM1 antigangloside antibody. Plan: -Repeat ganglioside antibody panel. -If okay then re-evaluate in 6 months. 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 -Further work-up of anemia significant only for low level complement fixing autoantibody. -Borderline anemia now. Plan: -No specific intervention required at this time. Portions of this documentation were copied and pasted from my previous office visit note dated 11/06/2023 in order to provide a cohesive continuity of the history. The note has been reviewed and edited and updated as necessary. I spent a total of 20 minutes on the date of the service which included preparing to see the patient, [id number] patient care, completing clinical documentation, counseling and educating the patient/family/caregiver, ordering medications, tests, or procedures, communicating with other HCPs (not separately reported), and communicating results to the patient/family/caregiver. Carlos Storey DO documented in this encounter [facility] 11-07-2024 Note HNO ID: [id number] Author: CARLOS STOREY DO Service: ? Author Type: Physician Type: Progress Notes Filed: 11/07/2024 09:21 Note Text: Oncologic problem(s): 1) IgG kappa monoclonal gammopathy. 2) IgM lambda monoclonal gammopathy. 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 4) Low level complement fixing AIHA. HPI: The patient is a 64-year-old male with a PMH significant for HTN, [...] had an EMG performed on 01/15/2022 at [facility]. The study was an abnormal test [...] or with exertion. He was admitted to [facility] in July 2020 for an episode of chest pain. [place] was ruled out. He underwent a stress [...] Had left knee replacement 10/2021. Had right carotid endarterectomy by Dr. Gilbert 12/09/2022. On Plavix and ASA. Operative report reviewed in [facility] system. Was noted to have tremor by his neurologist--elevated ammonia level--started on Lactulose. Stopped drinking altogether in 08/2022. Hasn't had alcohol since. Has lost ~30 lbs since April by quitting drinking and cutting calories. I feel much better. Presents for ongoing oncologic management. OV 11/06/2023: Saw neurologist at [facility]. Received 4 injections total--2 cervical and 2 lumbar. On medical marijuana. No alcohol. Home blood glucose 150-160s. Occasional numbness in fingertips--comes and goes--stable. Sensory neuropathy LEs stable--numb and burning from mid calf to toes--stable. Not on any symptomatic medication. Balance is normal. Presents for ongoing hematologic management. Interim history: Right knee replacement last Thursday. To start PT tomorrow. On medical MJ. Smokes it. Has really helped the neuropathy in the calves--used to burn. Feet numb, but not bothering him. Fingertip neuropathy resolve (more content not included)... [facility] 11-01-2024 Note [facility] Medical Records Department [address] [place] [id number] History Physical Exam 11/01/24725 MR#: [id number] Acct: [id number] Name: MALOUNIKO HERNANDEZ Rep #: [id number] : 1960 64 From: Roly Chi DO PCP: Dr. Silverio Salmeron MD Status:[facility] Location: [place] [address] History and Physical Date of Admission: 11/01/24 [facility] [address] [place] [address] [address] [id number] OFFICE VISIT Date of Service: 06/08/24 MR#: [id number] Acct: [id number] Name: KEVINNIKOEN Rep #: [id number] : 1960 Provider: Dr. Roly Chi DO Age/Sex: 63/M Location: [facility] Status: Signed Intake Vital Signs 05/31/2407:50 Height 6 ft 1 in Weight: 261 lb BMI 34.4 BP 146/72 H Blood Pressure Location Lt brachial Position Sitting Respiration 16 Pulse 83 Pulse Source Monitor Temp 98.6 F Temp Source Temporal Pulse Oximetry (%) 94 Oxygen Delivery Method room air Intake Visit Reasons: RIGHT KNEE Chief Complaint: Accompanied by: Self Is patient in pain?: Yes Pain scale (1-10): 5 Allergies No Known Allergies Allergy (Verified 06/08/24 08:00) Medications ???Medication ???Instructions ???Recorded ???Confirmed ???Type amlodipine 10 mg tablet 10 mg PO DAILY blood pressure 08/07/20 06/08/24 History hydrochlorothiazide 25 mg tablet 25 mg PO DAILY BP 06/18/21 06/08/24 History clopidogrel 75 mg tablet (Plavix) 75 mg PO DAILY BLODD THINNER 10/16/21 06/08/24 History accu-check fe plus See Rx Instructions .Route 09/10/22 06/08/24 History .COMPLEX DIABETES acetaminophen 500 mg capsule 500 mg PO Q6H PRN Pain 09/10/22 06/08/24 History metoprolol succinate 50 mg 100 mg PO DAILY heart 09/10/22 06/08/24 History tablet,extended release 24 hr losartan 100 mg tablet (Cozaar) 100 mg PO DAILY BP 11/26/22 06/08/24 History metformin 500 mg tablet,extended 500 mg PO BID DIABETES 11/26/22 06/08/24 History release 24 hr atorvastatin 40 mg tablet 40 mg PO QHS 07/14/23 06/08/24 History meloxicam 15 mg tablet 15 mg PO DAILY 07/14/23 06/08/24 History aspirin 81 mg tablet,delayed 81 mg PO DAILY 09/03/23 06/08/24 History release baclofen 20 mg tablet 20 mg PO TID 02/17/24 06/08/24 History hydralazine 50 mg tablet 100 mg PO TID 02/17/24 06/08/24 History benzonatate 200 mg capsule 200 mg PO TID PRN cough #20 caps 04/11/24 06/08/24 Rx methylprednisolone 4 mg tablets in See Rx Instructions PO PER PKG DIR 04/11/24 06/08/24 Rx a dose pack (Medrol (Anirudh)) #21 tabs lithium carbonate 300 mg capsule 900 mg (3 x 300 mg) PO 0800 05/28/24 07/17/24 Rx DEPRESSION 90 days #270 caps trazodone 50 mg tablet See Rx Instructions PO QHS PRN 04/19/24 06/08/24 Rx sleep #60 tabs prednisone 10 mg tablet 10 mg PO DAILY #30 tabs 05/09/24 06/08/24 Rx amitriptyline 100 mg tablet 100 mg PO QHS #90 tabs 05/31/24 06/08/24 Rx lactulose 10 gram/15 mL oral 15 ml PO DAILY Tremor #1,350 mL 05/31/24 06/08/24 Rx solution tizanidine 4 mg tablet 4 mg PO TID PRN muscle spasticity; 05/31/24 06/08/24 Rx muscle pain #270 tabs Have you fallen in the past year?: Yes PFSH Medical History URI (upper respiratory infection) Carotid stenosis Hematoma of neck Wears glasses Alcohol use Bipolar disorder High cholesterol Seizures Non-smoker History of echocardiogram History of heart attack Hypertension Cardiology follow-up encounter History of stress test Osteoarthritis of left knee Carotid stenosis, bilateral Shortness of breath Bipolar 1 disorder Essential hypertension Pharyngitis Acute bronchitis Chest pain Shoulder pain Arthritis Surgical History History of right-sided carotid endarterectomy Hx of transurethral resection of prostate Hx of total knee arthroplasty History of colonoscopy ( 10/2022) History of bursectomy History of arthroscopy of knee History of carpal tunnel release Family History Father Myocardial infarction Hypertension AlcoholismMother Cancer DiabetesBrother Heart disease Hypertension Alcoholism Cancer prostate Grandfather Myocardial infarction CVA (cerebral vascular accident) Carotid arterial disease Social History Smoking Status: Never smoker alcohol intake: current alcohol intake frequency: 0-2 drinks per day Alcohol type: beer substance use type: does not use HPI RIGHT KNEE D (more content not included)... [facility] 09-07-2023 Discharge summary Note Date/Time September 07, 2023 9:37am [facility] [address] [place] [address]. [address] [place] [address] / REHABILITATION SERVICES DISCHARGE SUMMARY MR#: [id number] Acct: [id number] Name: NIKO HUITRON Rep #: [id number] : 1960 63 From: Richelle Barros MP T Referring Dr.: Dr. Silverio Salmeron MD Status: REG RCR Insurance: MEDICARE PART A B [employer] Discharge Summary D/C summary: It has been my pleasure to treat NIKO HUITRON referred by Dr. Silverio Salmeron MD, with the diagnosis of BPPV for a total of 4 visit(s). Discharge Date: 09/07/23 Please see the following information for a summary of their discharge status. Subjective Subjective: Pt reports that his dizzy is almost gone and even in stores or in the yard he is doing well. He walks and turns his head a lot with no dizziness. He is still retaining fluid but feels that his eye puffiness is going down some. Pain neuropathy in feet: Pain Intensity (Out of 10): 8 eye pain: Pain Intensity (Out of 10): 2 Overall Improvement % Improvement: 80 Objective Objective/Function: CATSIB 120/120 FGA 29/30 Goals Goal 1:: I HEP Goal Progress: Goal Met Goal 2:: Be able to do smooth pursuit in standing both vertical and horizontal without dizziness for 60 seconds Goal Progress: Goal Met Goal 3:: Test FGA Goal Progress: Goal Met Goal 4:: Increase balance on CATSIB (score was 110/120 at second visit) Goal Progress: Goal Met Plan Plan: DC PT to HEP with walking with horizontal and vertical head turns and continue with eye movement D/C Information Discharge Comments: DC PT to HEP d/c sentence: If there are questions or concerns regarding this patient's physical therapy, please feel free to call me at [phone]. Thank you for the referral of thispatient. Sincerely, ORALIA Jean Balance/Gait/Functional tests Balance/Special Test Scores Functional Gait Assessment Score: 29 % Disability: 3.3400 CATSIB Score (Max score 120 seconds): 110 Dizziness Score: 0 Improvement % Improvement: 80 <Electronically signed by Richelle Barros MPT> 09/07/23 0937 CC: Dr. Silverio Salmeron MD ~ Signed [facility] Work Phone: 1(562) 182-641705-02-2023 Discharge summary Author Husam Fox [facility] March 24, 2023 10:55am Note Date/Time March 24, 2023 10:55a m [facility] [address] [place] [address] / REHABILITATION SERVICES DISCHARGE SUMMARY MR#: [id number] Acct: [id number] Name: NIKO HUITRON Rep #: [id number] : 1960 62 From: Husam POON T Referring Dr.: Dr. Silverio Salmeron MD Status: REG RCR Insurance: [facility] [id number] [place] PAY INSURANCE It has been my pleasure to treat NIKO HUITRON referred by Dr. Silverio Salmeron MD, with the diagnosis of Neuropathy and imbalance for a total of 3 visit(s). Discharge Date: 03/24/23 Please see the following information for a summary of their discharge status. Subjective: Pt. reports having 1 dizzy spell the last week. He got up walked ~10feet them became very light headed. This lasted ~30 seconds then went away. Objective/Function: Pt. did well with PT this date. He is I with his balance activities at this point in time. He does describe dizziness last week after initially getting up. I talked to him about potential of orthostatic. he is to trial taking BPs in sitting and initial standing to determine if there is a change. At this point in time and with his limited number of visits available, Iwould like him to continue with his exercises on his own. Pt. consents. Goal 1:: LTG: Pt. to be I with HEP without issues. Goal Progress: Goal Met Goal 2:: STG: Pt. be able to walk throughout the day without reports of imbalance. Goal Progress: Goal Met Goal 3:: LTG: Pt. reports no dizziness with initial standing after prolonged sitting. Goal Progress: Progressing Plan: Pt. to be DC to HEP for his balance exercises at this point in time. Discharge Comments: Pt. will be Dc to HEP with focus on balance, both staticallyand dynamically. Pt. consents to this plan. He was given exercises to progress his LOS, but also his ability to self correct his LOB. Pt. is doing well and will be DC from PT this date. If there are questions or concerns regarding this patient's physical therapy, please feel free to call me at [phone]. Thank you for the referral of this patient. Sincerely, Husam Fox, DPT Balance/Gait/Functional tests - Balance/Special Test Scores Functional Gait Assessment Score: 28 % Disability: 6.6700 CATSIB Score (Max score 120 seconds): 98 Lower Extremity Functional Score: 61 TUG Test Time Seconds: 7.3 Tug Test: <10 sec.=free mobile <Electronically signed by Husam Fox DPT> 03/24/23 1050 CC: Dr. Silverio Salmeron MD ~ CLS Signed [facility] Work Phone: 1(640) 948-860802-21-2023 Miscellaneous Notes* Telephone Encounter - Isatu Mariano LPN - 01/13/2023 12:02 PM EST Pt. Contacted informed his case was presented to colleagues at [facility] who recommended IDr. Cordelia check a few other labs to be absolutely certain that the blood condition he has has no relationship to his neuropathy. Pt. Instructed he needs to go to [facility] to have these labs done as we do not do them here in [place]. Given lab hours in [place]. Pt. Voiced understanding. Isatu Mariano LPN * Telephone Encounter - Carlos Storey DO - 01/13/2023 7:54 AM EST Please let him know that his case was presented to colleagues at [facility] who recommended I check a few other labs to be absolutely certain that the blood condition he has has no relationship to his neuropathy. Orders filed. Carlos Storey DO documented in this encounter[facility]02-[facility] History of Present illness Narrative* Ghislaine Peters APRN.ESTEFANY, PhD - 01/05/2023 3:27 PM EST Date of Tumor Board this case is being submitted for: January 05, 2023 Presenting Facility: Team Staff Name (first and last) Patient of Dr Storey / Garth Patient Information [id number] Niko Huitron 62 year old Diagnosis MGUS/ CANOMAD? Diagnosis comments Chart reviewed. Very low M protein but + cold agglutin and apparently neurologicsxs Cancer Staging No matching staging information was found for the patient. Type of Review: initial Pathology Review Needed: No - marrow from 2021 reviewed - no clonal disorder identified. Outcome: Niko Huitron pathology was reviewed by the providers in attendance. Based on the current evidence of practice, the collaborative recommendation would be to check cryoglobulins and update cold agglutin to rule out CANOMAD You may be well aware of this condition, but here is most updated paper: (Tracee Anderson, et a.. CANOMAD: a neurological monoclonal gammopathy of clinical significance that benefits from O-waqu-eigdubhg therapies. Blood. 2020 Sep 19;136(21):2240-6132. doi: 10.1182/blood.5497296991. PMID: 64021522.) https://pubmed.ncbi.nlm.nih.gov/31217993/ These recommendations will be communicated by the presenting physicians. Radiology No Care Path Discussion:NA Clinical Trial Discussion:- not currently a candidate Conclusions: Case reviewed by [facility]. documented in this encounterMer[facility]01-31-2023 History of Present illness Narrative* Carlos Storey, - 12/23/2022 10:53 AM EST Oncologic problem(s): 1) IgG kappa monoclonal gammopathy. 2) IgM lambda monoclonal gammopathy. 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 4) Low level complement fixing AIHA. HPI: The patient is a 62-year-old male with a PMH significant for HTN, DM2, PVD (b/l carotid arterystenosis with thrombus vs mobile plaque; on ASA [...] had an EMG performed on 01/15/2022 at [facility]. The study was an abnormal test [...] beta and gamma areas. The first M spiketotaled 0.4 g/dL and the second M spike [...] pain, pressure or discomfort. He is not shortof breath at rest or with exertion. He was admitted to [facility] in July 2020for an episode of chest pain. [place] was ruled out. He underwent a stress [...] canal diameter of 7.6 mm secondary to prominentdorsal epidural lipomatosis, developmentally short pedicles and posterior bulging annulus. 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 Had left knee replacement 10/2021. Presents for ongoing oncologic management. Interim history: Had right CEA by Dr. Gilbert 12/09/2022. On Plavix and ASA. Operative report reviewed in [facility] system. Was noted to have tremor [...] Not significantly fatigued. Normal appetite. Neuro: Denies FRANK. HEENT: No recent change in voice, vision [...] use. and lives with his Kristyn in [place]. Family history: He has a brother who [...] No jaundice or rash. No petechiae. 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 No focal motor [...] Lymph 1.00 - 4.00 k/uL 3.06 3.06 Sullivan% % 8.1 7.4 Abs Sullivan <0.87 k/uL 1.00 (H) 1.09 (H) Eosin% [...] 0.23 (H) SPE Staff Review Reviewed by Katherine Resendiz MD Reviewed by David York MD, Ph.D ([id number]) M-Protein Concentration 2 <=0.00 g/dL 0.10 (H) 0.20 (H) Component Latest Ref Rng & Units 03/18/2022 10/31/2022 IgG 700 - 1,600 mg/dL 655 (L) 788 IgA 70 - 400 mg/dL 96 90 IgM 40 - 230 mg/dL 197 197 [place] Free, Serum 3.3 - 19.4 mg/L 12.7 [...] gammopathy is uncertain. The bone marrow contains anadmixture of kappa and lambda plasma cells. However, [...] serum protein electrophoresis revealed low level biclonal Mprotein. -Low level IgG kappa monoclonal protein and low level IgM lambda monoclonal protein. No detectable monoclonal protein in the urine via 24-hour urine collection. The serum kappa and lambda light chainassay revealed normal levels with normal ratio. Bone survey showed no concerning lesions. No hypercalcemia, anemia or renal dysfunction. -Bone marrow biopsy--no abnormal/clonal PCs by histology or flow. Normal cytogenetics. Negative foramyloid on Congo red staining. -On lithium--most recent [...] M. pneumoniae) or true cold agglutinin disease favoringthe latter given IgM monoclonal gammopathy. Plan: -No [...] care. Carlos Storey DO documented in this encounterMer[facility]01-30-2023 Miscellaneous Notes* Telephone Encounter - Shy Bright - 12/22/2022 9:12 AM EST Spoke with pt and scheduled as directed * Telephone Encounter - Gayathri John LPN - 12/22/2022 8:17 AM EST Pt notified and voices understanding. PSS please reach out to assist pt in scheduling. Gayathri John LPN * Telephone Encounter - Carlos Storey DO - 12/21/2022 5:44 PM EST Can let him know that the latest testing showed a small increase in antibodies that may be associated with his neuropathy. Please schedule established complex visit with me when schedule permits. Carlos Storey DO documented in this encounterMer[facility]01-23-2023 Miscellaneous Notes* Telephone Encounter - Jessica Weston LPN - 12/15/2022 11:23 AM EST Patient is aware and will have labs done sometime this week. Jessica Weston LPN * Telephone Encounter - Carlos Storey DO - 12/15/2022 11:06 AM EST Medications will not interfere. Carlos Storey DO * Telephone Encounter - Isatu Mariaon LPN - 12/15/2022 10:54 AM EST Pt. Had a Carotid Endarterectomy last Thursday, completed his Percocet yesterday. Wanted to make sure all the medications from his surgery are not going to interfere with test. Had morphine, anesthesia, and percocet. If not will get test later this week. Isatu Mariano LPN * Telephone Encounter - Patsy De La Torre Pss - 12/15/2022 10:18 AM EST Patient called stating he was recently in [facility] and stated he had labs drawn there. He is asking if they are the same labs and if not, patient states he is on pain medication and is asking if that would affect the labs ordered. * Telephone Encounter - Isatu Mariano LPN - 12/15/2022 8:22 AM EST Message left on voicemail to check his my chart concerning labs done in October. Isatu Mariano LPN * Telephone Encounter - Carlos Storey DO - 12/14/2022 12:18 PM EST Can let him know that the additional lab work that he had in October showed no cause for his mild anemia and the anemia had recovered on repeat CBC. I would like him to return for one more lab test in order to help determine whether or not there is a blood disorder causing his neuropathy. Carlos Storey DO documented in this encounterMer[facility]01-18-[address] Gilbert [facility] December 10, 2022 6:30am Note Date/Time December 10, 2022 6 :30am [facility] Medical Records Department [address] [place] [address] Progress Note - Surgery 12/10/22627 MR#: [id number] Acct: [id number] Name: NIKO HUITRON Rep #:[id number] : 1960 62 From: Randall Gilbert MD PCP: Dr. Silverio Salmeron MD Status:AD M IN Location: [place] [id number] Subjective Subjective The patient is remained very stable overnight. I suspect he just had a small collected hematoma from his operative anticoagulation and preoperative anticoagulation on clopidogrel. With wound care and direct pressure that has resolved. Objective Data Objective Data Vital Signs: Vital Signs Temp Pulse Resp BP Pulse Ox O2 Del Method O2 Flow Rate 97.4 F L 59 L 16 132/72 H 97 Nasal Cannula 2 12/10/22 03:00 12/10/22 03:00 12/10/22 03:00 12/10/22 03:00 12/10/22 03:00 12/10/22 03:00 12/10/22 03:00 Oxygen Flow Rate (L/min) 2 Oxygen Delivery Method Nasal Cannula Weight: 253 lb 8.505 oz Body Mass Index (BMI) 33.4 Intake & Output: Intake and Output for Last 24 Hours 12/08/22 12/09/22 12/10/22 23:59 23:59 23:59 Intake Total 3215 / 3215 Output Total 500 / 500 Balance 3215 / 3215 -500 / -500 Lab / Micro Data Result Diagrams: 11/27/22 10:02 11/27/22 10:02 Labs: Laboratory Results - last 24 hr 12/09/22 11:27: POC Glucose 174 H Physical Exam Narrative The patient's right neck is clean and dry. The position no bleeding overnight. It has same amount of swelling is initially postoperatively. He is alert neurologically stable. Assessment & Plan Assessment/Plan (1) Stenosis of right carotid artery: (2) Postoperative hematoma: PLAN: Plan Patient appears to be very stable. I will reinitiate diet and activity. Anticipate likely discharge later today pending patient's progress. Randall Gilbert M.D., F.A.C.S. 12/10/22 0630 <Electronically signed by Randall Gilbert MD> Cosigner Signature (if applicable): CC: ~ Signed [facility] Work Phone: 1(575) 423-661001-17-[address] Gilbert [facility] December 09, 2022 7:15pm Note Date/Time December 09, 2022 7 :15pm [facility] Medical Records Department [address] [place] [address] Progress Note - Surgery 12/09/221911 MR#: [id number] Acct: [id number] Name: NIKO HUITRON Rep #:[id number] : 1960 62 From: Randall Gilbert MD PCP: Dr. Silverio Salmeron MD Status:AD M IN Location: [place] [id number] Subjective Subjective 6:15 PM. I was called to see the patient on arrival because of saturated dressing right neck. Patient was neurologically intact. Tongue slight deviation to the right no change for immediately postop and consistent with the hypoglossal nerve mobilization that had to be performed. Noted that he was chewing hard on food when then felt wetness on the right neck. He notes soreness. Particularly with pressure being helped. Objective Data Objective Data Vital Signs: Vital Signs Temp Pulse Resp BP Pulse Ox O2 Del Method O2 Flow Rate 98.5 F 58 L 18 103/52 L 93 Nasal Cannula 3 12/09/22 16:51 12/09/22 16:51 12/09/22 16:51 12/09/22 16:51 12/09/22 16:51 12/09/22 16:51 12/09/22 16:51 Oxygen Flow Rate (L/min) 3 Oxygen Delivery Method Nasal Cannula Weight: 253 lb 8.505 oz Body Mass Index (BMI) 33.4 Intake & Output: Intake and Output for Last 24 Hours 12/07/22 12/08/22 12/09/22 23:59 23:59 23:59 Intake Total 3165 / 3165 Balance 3165 / 3165 Lab / Micro Data Result Diagrams: 11/27/22 10:02 11/27/22 10:02 Labs: Laboratory Results - last 24 hr 12/09/22 05:45: POC Glucose 155 H 12/09/22 11:27: POC Glucose 174 H Physical Exam Const Constitutional Narrative: Right neck dressing of Telfa is saturated and there is evidence of blood that isstripped down. Moderate neck swelling. Patient is breathing easily and talkingabundantly. No acute distress Assessment & Plan Assessment/Plan (1) Postoperative hematoma: PLAN: Patient appears to have a postoperative hematoma. I suspect that because of the depth of his neck and depth of the resection that he had somewhat collected blood down there and with vigorous shooting released it. He does not appear to be in any distress. He is breathing and talking very easily without encumbrance. I personally helped assist with holding pressure for at least 25 to 30 minutes with instructions to hold for another 20. He will continue to be observed. At this point there is no evidence of expanding hematoma or any further bleeding since initial dressing was removed. I anticipate keeping him n.p.o. and watching him carefully. Randall Gilbert M.D., F.A.C.S. 12/09/221914 <Electronically signed by Randall Gilbert MD> Cosigner Signature (if applicable): CC: ~ Signed [facility] Work Phone: 1(145) 826-270701-17-2023 Procedure [facility] 12-09-2022 History and physical note Author Dr. Gilbert [facility] December 09, 2022 6:34am Note Date/Time December 09, 2022 6 :31am [facility] Medical Records Department [address] [place] [id number] History & Physical Exam 12/09/2229 MR#: [id number] Acct: [id number] Name: NIKO HUITRON Rep #:[id number] : 1960 62 From: Randall Gilbert MD PCP: Dr. Silverio Salmeron MD Status:AD M IN Location: [place] [address] History and Physical Date of Admission: 12/09/22 Visit Reasons:?Cartoid Stenosis Chief Complaint: carotid stenosis Administrative Assistant Required: No Is patient in pain?: No Allergies No Known Allergies Allergy (Verified 11/05/22 12:21) Medications amlodipine 10 mg tablet 10 mg PO DAILY blood pressure 08/07/20 [History Confirmed 11/05/22] trazodone 100 mg tablet 1 - 2 mg PO QHS sleep 08/07/20 [History Confirmed 11/05/22] atorvastatin 40 mg tablet 40 mg PO QHS #30 tabs 08/09/20 [Rx Confirmed 11/05/22] hydrochlorothiazide 25 mg tablet 25 mg PO DAILY 06/18/21 [History Confirmed 11/05/22] clopidogrel 75 mg tablet (Plavix) 75 mg PO DAILY 10/16/21 [History Confirmed 11/05/22] prednisone 10 mg tablet See Rx Instructions PO QDAY #30 tabs 08/03/22 [Rx Confirmed 11/05/22] accu-check fe plus intradermal 09/10/22 [History Confirmed 11/05/22] acetaminophen 500 mg capsule 500 mg PO Q6H PRN 09/10/22 [History Confirmed 11/05/22] cyclobenzaprine 5 mg tablet 5 mg PO TID PRN 09/10/22 [History Confirmed 11/05/22] dutasteride 0.5 mg capsule (Avodart) 0.5 mg PO DAILY 09/10/22 [History Confirmed 11/05/22] metoprolol succinate 50 mg tablet,extended release 24 hr 100 mg PO DAILY heart 09/10/22 [History Confirmed 11/05/22] lithium carbonate 300 mg capsule 300 mg PO .COMPLEX 09/22/22 [History Confirmed 11/05/22] amitriptyline 25 mg tablet 25 mg PO QHS #30 tabs 10/29/22 [Rx Confirmed 11/05/22] lactulose 10 gram/15 mL oral solution 15 ml PO DAILY #473 mL 10/29/22 [Rx Confirmed 11/05/22] [facility] Medical History? Acute bronchitis Alcohol use Arthritis Bipolar 1 disorder Bipolar disorder Cardiology follow-up encounter Carotid stenosis, bilateral Chest pain Essential hypertension High cholesterol History of echocardiogram History of heart attack History of stress test Hypertension Non-smoker Osteoarthritis of left knee Pharyngitis Prostate disease Seizures Shortness of breath Shoulder pain Wears glasses Surgical History?(Updated 11/05/22 @ 12:20 by Gaye Cifuentes) History of arthroscopy of knee History of bursectomy History of carpal tunnel release History of colonoscopy (~10/2022) Family History? Father Myocardial infarction Hypertension AlcoholismMother Cancer DiabetesBrother Heart disease Hypertension Alcoholism Cancer ?? ? prostate ?? ?Grandfather Myocardial infarction CVA (cerebral vascular accident) Carotid arterial disease Social History? Smoking Status:? Never smoker alcohol intake:? current Alcohol type: beer substance use type:? does not use HPI HPI HPI: 62-year-old gentleman.? He has been seeing Dr. Souleymane Loving regarding carotid occlusive disease.? He is requesting a second opinion.? Records that I have available go back to August 08, 2020 carotid duplex exam.? At that time therewas felt to be irregular plaque within the right carotid bulb and a 0.26 x 0.21 cm mobile thrombus.? There was felt to be 50 to 69% stenosis based upon velocity.? A head neck CTA was performed and that suggested calcific plaque at the origin of right internal carotid causing 50 to 69% stenosis.? A small filling defect suggesting small thrombus within the right carotid bulb? identified..? To my understanding nonoperative management was recommended.? The patient then had an additional carotid duplex exam October 23, 2020.? Velocitieswere not elevated within the right internal carotid artery.? Again a small mobile plaque measuring 0.24 x 0.22 cm was identified but less than 50% stenosisbilaterally.? The patient had his next carotid duplex exam September 04, 2021.? Less than 50% stenosis bilateral internal carotid arteries.? Persistent small mobile plaques 0.25 x 0.25 cm in the right carotid bulb noted.? On September 04, 2020 2 repeat carotid duplex imaging was obtained demonstrating less than 50% stenosis bilateral internal carotid arteries.? There is mild irregular plaque within the right proximal internal carotid artery with a 0.29 x 0.32 cm diametersmall mobile plaque.? This appears to be similar to the previous studies.? On October 08, [address] Souleymane Loving the patient had a CTA of the carotids.? Now there was felt to be greater than 70% stenosis of the right internal carotidartery with mild plaque formation of the left internal carotid artery.? I have personally reviewed these images with .? It is my opinion that the degree of stenosis of the right internal carotid would be closer to 50 to 69% rather than greater than 70%.? There is less than 50% stenosis on the left The patient is recently has been seen by Dr. Hudson Almanzar.? Lactulose has been added to the patient's regimen because he has an elevated ammonia level.? Patient apparently complaining of a tremor.? He has multiple medical problems including hyperlipidemia and hypertension and diabetes mellitus and history of myocardial infarction and benign prostatic hypertrophy and bipolar disorder.? Hehas a history of excessive alcohol use.? He has neuropathic pain.? He is additionally been found to have a monoclonal gammopathy and is cared for by gum machine filler Dr. Carlos Storey. The patient also apparently has an elevated TSH and is to be following up with primary care.? This is felt to possibly be secondary to his lithium treatment. I have seen him most recently on October 24, 2022.? This was in follow-up of a personal history of multiple colon polyps.? November 12, 2021 he had a colonoscopy work 8 colonic polyps tubular adenomas were removed.? He is scheduled for a future colonoscopy. Patient denies any TIAs or strokes.? He is on clopidogrel because of previous myocardial infarction.? By report he does not have a coronary stent in place. It is of note that Dr. Hudson Almanzar has expressed concerned about this mobileplaque in the patient's right carotid as well ROS General General: No weight change, appetite, fatigue, colon cancer, breast cancer or weakness HEENT HEENT: No difficulty swallowing, eye injury, eye surgery, swollen glands or hoarseness Endo Endocrine: Yes diabetes mellitus; No thyroid disease, thyroid cancer, Hair loss, heat intolerance or cold intolerance Skin Skin: No rash or changing moles Breast Breast: No left breast lump, right breast lump, nipple discharge, breast pain, abnormal mammogram, abnormal US or breast enlargement Musc Musculoskeletal: Yes back problems, arthritis and rheumatoid arthritis; No gout or joint pain Cardio Cardiovascular: Yes high blood pressure; No murmur, pacemaker, heart disease, atrial fibrillation, heart attack, heart stent, palpitations, shortness of breat with exertion or chest pain Psych Psychiatric: No depression, anxiety or hearing voices Resp Respiratory: No shortness of breath, No sleep apnea, No cough, No COPD, No asthma, No emphysema and No wheezing Gastro Gastrointestinal: No abdominal pain, No nausea or vomiting, No diarrhea, No constipation, No blood in stool, No acid reflux, No hemorrhoids, No ulcers, No gallbladder problem and No black,tarry stools Hilton Hematologic: Yes blood thinners, No blood disorders, No bleeding, No anemia and No blood clots Neuro Neurologic: No system reviewed and no additional complaints, except as documented, No as per HPI, No abnormal gait, No abnormal hearing, No abnormal movements, No abnormal speech, No behavioral changes, No burning sensations, No confusion, No convulsions, No disequilibrium, No dizziness, No localized weakness, No frequent falls, No headache(s), No lack of coordination, No loss of vision, No memory loss, No numbness, No other visual disturbances, No radicular pain, No restless legs, No sensory deficit, No syncope, No tingling, No tremor(s), No weakness and No other Exam Const General: cooperative, comfortable and no acute distress Nutritional Appearance: obese [facility] Head: normal to inspection Eyes General: appearance normal, both eyes and all related structures Neck Neck: normal visual inspection Chest Chest palpation & inspection: normal inspection of the chest Resp Effort & Inspection: normal respiratory effort Auscultation: clear to auscultation bilaterally Cardio Rate: regular rate Rhythm: regular rhythm Other: Bilateral radial pulses 3+.? Bilateral brachial pulses 3+.? Bilateral carotids 2+.? No carotid bruits GI Inspection: normal to inspection Auscultation: normal bowel sounds Musc Cervical Spine: normal cervical lordosis Skin General: no rashes or lesions noted Neuro General: patient alert and patient awake Other: Bilateral hand tremor noted Extrem General: no calf tenderness Psych Appearance: grossly normal Assessment and Plan Assessment and Plan (1) Stenosis of right carotid artery: ?Status:?Acute (2) Personal history of colonic polyps: ?Status:?Acute Plan I have instructed the patient that I reviewed his CTA with Dr. Quinn and after extensive discussion there is felt to be likely somewhere between 50 and 69% stenosis of the right internal carotid possibly closer to the 69% range based upon CTA.? I believe however that the more concerning feature is found on his carotid duplex exam with the clearly visible and mobile plaque which has been visualized now on multiple occasions.? In great detail I have discussed with him a right carotid enterectomy with bovine patch angioplasty and arterial line monitoring.? We have discussed the technique, benefit, risk, alternatives.?Absolutely no guarantees of success have been offered. I will have the patient hold his clopidogrel 2 days preprocedure.? He is aware that we anticipate utilizing an arterial line for monitoring. The patient is additionally aware that at this moment in time operating room scheduling is extraordinarily limited to certain circumstances outside of my control.? We will schedule him at the earliest convenient date. He has had an opportunity to ask and have questions answered.? We will schedule and proceed at his discretion.? The patient has expressed an interest in proceeding with intervention.? He states that he is never been comfortable with a noninterventional approach.? He states that he desires to convert his care regarding this particular issue to me at this time. Copy: Dr Silverio Salmeron and Dr. Hudson Gilbert M.D., F.A.C.S I have examined the patient and the H&P has been reviewed. There are no clinicalchanges since date of exam. Randall Gilbert M.D., F.A.C.S. 12/09/22 0634 <Electronically signed by Randall Gilbert MD> Cosigner Signature (if applicable): CC: Dr. Silverio Salmeron MD; Dr. Randall Gilbert MD~ Signed [facility] Work Phone: [phone] 203-558006-10-2022 History of Present illness Narrative* Carlos Joel Cordelia, DO - 05/02/2022 11:44 AM EDT Oncologic problem(s): 1) IgG kappa monoclonal gammopathy. [...] had an EMG performed on 01/15/2022 at [facility]. The study was an abnormal test of the lower limbs and demonstrated electrodiagnostic findings suggestive of peripheral polyneuropathy, sensory greater than motor etiology unknown. There was no electrodiagnostic evidence for lumbosacral radiculopathy. He evidently had lab work to work-up the neuropathy on 02/12/2022.. Vitamin B6 level was normal. ANAwas negative. A urine protein electrophoresis revealed 2 [...] day and has been doing so for abouta week. Soles of feet can be painful when walking. Very slight imbalance when walking on occasion. 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 He is not shortof breath at rest or with exertion. He was admitted to [facility] in July 2020for an episode of chest pain. [place] was ruled out. He underwent a stress [...] Not significantly fatigued. Normal appetite. Neuro: Denies FRANK, vertigo, dizziness. HEENT: No recent change in [...] - and lives with his Kristyn in [place]. Family history: He has a brother who [...] No jaundice or rash. No petechiae. 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 No focal motor [...] Abs Lymph 1.00 - 4.00 k/uL 3.27 Sullivan% % 7.2 Abs Sullivan <0.87 k/uL 0.93 (H) Eosin% % 0.7 [...] 0.19 (H) SPE Staff Review Reviewed by Katherine Resendiz MD M-Protein Concentration 2 <=0.00 g/dL [...] kappa and IgM lambda components. Staff Review ([facility]) Reviewed by Josette Dao M.D., Ph.D [place] Free, Serum 3.3 - 19.4 mg/L 12.7 Lambda Free, Serum 5.7 - 26.3 mg/L 9.4 K/L Ratio, Serum 0.26 - 1.65 1.35 Component Latest Ref Rng & Units 03/20/2022 Protein, Timed Urine <0.16 gm/24 Hr 0.18 (H) Period hours 24 Urine Volume 24 hour mL 2,625 Result ([facility]) No M protein is identified. No M protein is identified. Staff Review ([facility]) Reviewed by Josette Dao M.D., Ph.D Component [...] gammopathy is uncertain. The bone marrow contains anadmixture of kappa and lambda plasma cells. However, [...] serum protein electrophoresis revealed low level biclonal Mprotein. -Low level IgG kappa monoclonal protein and low level IgM lambda monoclonal protein. No detectable monoclonal protein in the urine via 24-hour urine collection. The serum kappa and lambda light chainassay reveals normal levels with normal ratio. Bone [...] care. Carlos Storey DO documented in this encounterMer[facility]05-17-2022 Miscellaneous Notes* Telephone Encounter - Liv Brown RN - 04/08/2022 9:32 AM EDT You are scheduled for a bone marrow biopsy, On March at 11 am. You are to arrive at 9:30 am and Report to [facility] First Floor Radiology Registration Desk. You [...] any of following medications? Plavix. Per the [facility] [place] Meet-Procedure Coagulation Guidelines this medication does not need to be held for a bone marrow biopsy. Labs: Lab-work needs to be drawn? Yes, an INR will be drawn the day of the procedure. Please check in at the Radiology Registration Desk first and they will direct you to the lab. 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 Private car. You will need a responsible adult to accompany you to and from the procedure. Your driver education road instructor is required to stay with you until you are taken into the procedure room. documented in this encounterMer[facility]05-16-2022 Miscellaneous Notes* Telephone Encounter - Katherine Sinclair RN - 04/07/2022 2:04 PM EDT Returned pt's message left earlier today. No answer, left message with call back information. documented in this encounterMercy [facility]05-13-2022 Miscellaneous Notes* Telephone Encounter - Katherine Sinclair RN - 04/04/2022 11:18 AM EDT You are scheduled for a bone marrow biopsy on April 14. You are to arrive at 8:30 am and report to [facility] First Floor Radiology Registration Desk. You can expect to be here for 4-8hours. Diet: Do not eat any solid food [...] any of following medications? Plavix. Per the [facility] Meet-Procedure Coagulation Guidelines this medication does not need to be held for a bone marrow biopsy. Labs: Lab-work needs to be drawn? Yes, an INR will be drawn the day of the procedure. Please check in at the Radiology Registration Desk first and they will direct you to the lab. 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 Private car. You will need a responsible adult to accompany you to and from the procedure. Please call [phone] with any questions or if you need to reschedule. documented in this encounterMercy [facility]05-13-2022 Miscellaneous Notes* Telephone Encounter - Katherine Sinclair RN - 04/04/2022 9:33 AM EDT Left message with call back information documented in this encounterMercy [facility]05-11-2022 Miscellaneous Notes* Telephone Encounter - Carlos Storey DO - 04/02/2022 5:26 PM EDT I filed the orders. CHR MDS isn't needed. Carlos Storey DO * Telephone Encounter - Patsy De La Torre Pss - 04/02/2022 3:30 PM EDT Received phone call from [facility]. They are needing the following labs ordered for the Bone Marrow biopsy. -BM DNA -FLOW CYTOMETRY HOLD THE SAMPLE -BM CHROMOSOME -BMRT -CHR MDS documented in this encounterMercy Health [facility]05-11-2022 History of Present illness Narrative* Carlos Storey DO - 04/02/2022 8:53 AM EDT Oncologic problem(s): 1) IgG kappa monoclonal gammopathy. [...] had an EMG performed on 01/15/2022 at [facility]. The study was an abnormal test of the lower limbs and demonstrated electrodiagnostic findings suggestive of peripheral polyneuropathy, sensory greater than motor etiology unknown. There was no electrodiagnostic evidence for lumbosacral radiculopathy. He evidently had lab work to work-up the neuropathy on 02/12/2022.. Vitamin B6 level was normal. ANAwas negative. A urine protein electrophoresis revealed 2 [...] day and has been doing so for abouta week. Soles of feet can be painful when walking. Very slight imbalance when walking on occasion. 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 He is not shortof breath at rest or with exertion. He was admitted to [facility] in July 2020for an episode of chest pain. [place] was ruled out. He underwent a stress [...] Not significantly fatigued. Normal appetite. Neuro: Denies FRANK, vertigo, dizziness. HEENT: No recent change in [...] - and lives with his Kristyn in [place]. Family history: He has a brother who [...] No jaundice or rash. No petechiae. 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 No focal motor [...] Abs Lymph 1.00 - 4.00 k/uL 3.27 Sullivan% % 7.2 Abs Sullivan <0.87 k/uL 0.93 (H) Eosin% % 0.7 [...] 0.19 (H) SPE Staff Review Reviewed by Katherine Resendiz MD M-Protein Concentration 2 <=0.00 g/dL [...] kappa and IgM lambda components. Staff Review ([facility]) Reviewed by Josette Dao M.D., Ph.D [place] Free, Serum 3.3 - 19.4 mg/L 12.7 Lambda Free, Serum 5.7 - 26.3 mg/L 9.4 K/L Ratio, Serum 0.26 - 1.65 1.35 Component Latest Ref Rng & Units 03/20/2022 Protein, Timed Urine <0.16 gm/24 Hr 0.18 (H) Period hours 24 Urine Volume 24 hour mL 2,625 Result ([facility]) No M protein is identified. No M protein is identified. Staff Review ([facility]) Reviewed by Josette Dao M.D., Ph.D Component [...] 0.00 Staff Review ([id number]) Reviewed by Josette Bjorn Feliberto, M.D., Ph.D Interpretation Comment for Protein Electrophoresis [...] with the patient and his . Most likelyhas underlying IgG monoclonal gammopathy and IgM lambda [...] -Bone marrow biopsy under CT guidance at [facility]. -Check antimyelin antibodies. -Recommend neurology evaluation [...] care. Carlos Storey DO documented in this encounterMercy [facility]04-27-2022 Miscellaneous Notes* Telephone Encounter - Christal Blunt - 03/19/2022 8:26 AM EDT Relayed message to patient 8:20 am Christal Blunt * Telephone Encounter - Mindy Dowling - 03/19/2022 8:19 AM EDT Left message for patient to return call. When patient calls, please relay message below, document and close this note. Mindy Dowling * Telephone Encounter - Carlos Storey DO - 03/19/2022 6:06 AM EDT Good news. Can let him know x-rays yesterday showed a few degenerative changes (normal aging) of the spine and no other abnormalities. Carlos Storey DO documented in this encounterMercy Health [facility]04-26-2022 History of Present illness Narrative* RT Isela(R) - 03/18/2022 3:30 PM EDT Radiology Service Progress Note PATIENT NAME: Niko Huitron DATE OF SERVICE: March 18, 2022 TIME: 3:35 PM PATIENT IDENTITY VERIFICATION COMPLETED USING TWO (2) IDENTIFIERS: Name and Date of confirmedby patient verbally. 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 The impression and plan [...] had an EMG performed on 01/15/2022 at [facility]. The study was an abnormal test of the lower limbs and demonstrated electrodiagnostic findings suggestive of peripheral polyneuropathy, sensory greater than motor etiology unknown. There was no electrodiagnostic evidence for lumbosacral radiculopathy. He evidently had lab work to work-up the neuropathy on 02/12/2022.. Vitamin B6 level was normal. ANAwas negative. A urine protein electrophoresis revealed 2 [...] day and has been doing so for abouta week. Soles of feet can be painful when walking. Very slight imbalance when walking on occasion. 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 He is not shortof breath at rest or with exertion. He was admitted to [facility] in July 2020for an episode of chest pain. [place] was ruled out. He underwent a stress [...] Not significantly fatigued. Normal appetite. Neuro: Denies FRANK, vertigo, dizziness. HEENT: No recent change in [...] - and lives with his Kristyn in [place]. Family history: He has a brother who [...] No jaundice or rash. No petechiae. 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 No focal motor [...] protein. -Personally reviewed records available through the [facility] system. -I discussed the spectrum of [...] which included preparing to see the patient, [id number] patient care, completing clinical documentation, obtaining and/or reviewing separately obtained history, performing a medically appropriate examination, counseling and educating the pat ient/family/caregiver, ordering medications, tests, or procedures and communicating results to the patient/family/caregiver. Carlos Storey DO documented in this encounterMercy Health [facility]04-12-2022 Miscellaneous Notes* Telephone Encounter - Katina Perez - 03/04/2022 3:45 PM EDT DX: GAMMOPATHY REF PROVIDER: DR. SALMERON FILE GIVEN TO DR. STOREY FOR REVIEW. Katina Perez documented in this encounterCh[facility] note* Diagnosis Onset Date Resolution Status Other acute postprocedural pain acute S/P total knee arthroplasty acute S/P total knee arthroplasty acute Greater trochanteric bursitis of left hip acute Iliotibial band syndrome, left leg acute S/P total knee arthroplasty acute Greater trochanteric bursitis of left hip acute Iliotibial band syndrome, left leg acute S/P total knee arthroplasty acute [facility] Work Phone: Evaluation note* Diagnosis Monoclonal gammopathy- Primary Monoclonal paraproteinemia Sensory neuropathy Unspecified hereditary and idiopathic peripheral neuropathy documented in this encounter [facility]* Diagnosis Monoclonal gammopathy Monoclonal paraproteinemia documented in this encounter [facility]* Diagnosis Monoclonal gammopathy- Primary Monoclonal paraproteinemia Neuropathy Mononeuritis of unspecified site Multiple myeloma not having achieved remission (HCC) Multiple myeloma, without mention of having achieved remission documented in this encounter [facility]* Diagnosis Chronic anticoagulation- Primary Long-term (current) use of anticoagulants documented in this encounter [facility]* Diagnosis Monoclonal gammopathy- Primary Monoclonal paraproteinemia documented in this encounter [facility]* Diagnosis Gammopathy, benign monoclonal- Primary Monoclonal paraproteinemia documented in this encounter [facility]* Diagnosis Onset Date Resolution Status Greater trochanteric bursitis of left hip acute Iliotibial band syndrome, left leg acute S/P total knee arthroplasty acute Orthopedic aftercare noneact rafita Irritant contact dermatitis due to plant acute [facility] Work Phone: Evaluation note* Diagnosis Onset Date Resolution Status Irritant contact dermatitis due to plant acute [facility] Work Phone: Evaluation note* Diagnosis Onset Date Resolution Status Irritant contact dermatitis due to plant acute Essential hypertension chron ic Poison kirstie dermatitis noneac tive [facility] Work Phone: Evaluation note* Diagnosis Onset Date Resolution Status Irritant contact dermatitis due to plant acute Essential hypertension chron ic Poison kirstie dermatitis noneac tive Absent pedal pulses acute Drug-induced tremor chronic Low back pain chronic Neck pain chronic Polyneuropathy chronic [facility] Work Phone: Evaluation note* Diagnosis Onset Date Resolution Status Essential hypertension chron ic Poison kirstie dermatitis noneac tive Absent pedal pulses acute Drug-induced tremor chronic Low back pain chronic Neck pain chronic Polyneuropathy chronic [facility] Work Phone: Evaluation note* Diagnosis Gammopathy, benign monoclonal- Primary Monoclonal paraproteinemia documented in this encounter [facility]* Diagnosis Onset Date Resolution Status Essential hypertension chron ic Poison kirstie dermatitis noneac tive Absent pedal pulses acute Drug-induced tremor chronic Low back pain chronic Neck pain chronic Polyneuropathy chronic Personal history of colonic polyps acute Essential tremor acute Drug-induced tremor chronic Low back pain chronic Neck pain chronic Polyneuropathy chronic Personal history of colonic polyps acute Stenosis of right carotid artery acute [facility] Work Phone: Evaluation note* Diagnosis Onset Date Resolution Status Absent pedal pulses acute Drug-induced tremor chronic Low back pain chronic Neck pain chronic Polyneuropathy chronic Personal history of colonic polyps acute Essential tremor acute Drug-induced tremor chronic Low back pain chronic Neck pain chronic Polyneuropathy chronic Personal history of colonic polyps acute Stenosis of right carotid artery acute S/P total knee arthroplasty acute Postoperative hematoma acute Stenosis of right carotid artery acute [facility] Work Phone: Evaluation note* Diagnosis 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 Neuropathy Mononeuritis of unspecified site documented in this encounter [facility]* Diagnosis Onset Date Resolution Status Absent pedal pulses acute Drug-induced tremor chronic Low back pain chronic Neck pain chronic Polyneuropathy chronic Personal history of colonic polyps acute Essential tremor acute Drug-induced tremor chronic Low back pain chronic Neck pain chronic Polyneuropathy chronic Personal history of colonic polyps acute Stenosis of right carotid artery resolved S/P total knee arthroplasty acute Postoperative hematoma acute Stenosis of right carotid artery resolved Postoperative hematoma acute Stenosis of right carotid artery resolved Postoperative hematoma acute [facility] Work Phone: Evaluation note* Diagnosis 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 IgG monoclonal gammopathy Monoclonal paraproteinemia Sensory motor neuropathy Unspecified hereditary and idiopathic peripheral neuropathy 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 anemias [facility] Diagnosis Encounter for consultation- Primary Unspecified reason for consultation [facility] Diagnosis 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 [facility] Diagnosis IgM kappa monoclonal gammopathy- Primary [facility] Diagnosis Onset Date Resolution Status Personal history of colonic polyps acute Drug-induced tremor chronic Essential tremor chronic Low back pain chronic Neck pain chronic Polyneuropathy chronic Personal history of colonic polyps acute Stenosis of right carotid artery resolved S/P total knee arthroplasty acute Postoperative hematoma acute Stenosis of right carotid artery resolved Postoperative hematoma acute Stenosis of right carotid artery resolved Postoperative hematoma acute Hyperammonemia acute Drug-induced tremor chronic Essential tremor chronic Low back pain chronic Neck pain chronic Polyneuropathy chronic Mechanical pain of right knee acute Osteoarthritis of right knee noneactive [facility] Work Phone: Evaluation note* Diagnosis Onset Date Resolution Status S/P total knee arthroplasty acute Postoperative hematoma acute Stenosis of right carotid artery resolved Postoperative hematoma acute Stenosis of right carotid artery resolved Postoperative hematoma acute Hyperammonemia acute Drug-induced tremor chronic Essential tremor chronic Low back pain chronic Neck pain chronic Polyneuropathy chronic Mechanical pain of right knee acute Osteoarthritis of right knee noneactive [facility] Work Phone: Evaluation note* Diagnosis Onset Date Resolution Status Drug-induced tremor chronic Essential tremor chronic Low back pain chronic Neck pain chronic Polyneuropathy chronic Hyperammonemia resolved Mechanical pain of right knee acute Osteoarthritis of right knee noneactive Drug-induced tremor chronic Essential tremor chronic Low back pain chronic Neck pain chronic Polyneuropathy chronic Hyperammonemia resolved [facility] Work Phone: Evaluation note* Diagnosis Onset Date Resolution Status Drug-induced tremor chronic Essential tremor chronic Low back pain chronic Neck pain chronic Polyneuropathy chronic Hyperammonemia resolved Left knee pain acute Right knee pain acute [facility] Work Phone: Evaluation note* Diagnosis Onset Date Resolution Status Drug-induced tremor chronic Essential tremor chronic Low back pain chronic Neck pain chronic Polyneuropathy chronic Hyperammonemia resolved Left knee pain acute Right knee pain acute Osteoarthritis of right knee acute Right lateral epicondylitis acute Tear of lateral meniscus of right knee acute Tear of medial meniscus of right knee acute Myalgia acute Drug-induced tremor chronic Essential tremor chronic Low back pain chronic Neck pain chronic Polyneuropathy chronic Hyperammonemia resolved [facility] Work Phone: Evaluation note* Diagnosis Onset Date Resolution Status Left knee pain acute Right knee pain acute Osteoarthritis of right knee acute Right lateral epicondylitis acute Tear of lateral meniscus of right knee acute Tear of medial meniscus of right knee acute Myalgia acute Drug-induced tremor chronic Essential tremor chronic Low back pain chronic Neck pain chronic Polyneuropathy chronic Hyperammonemia resolved [facility] Work Phone: Evaluation note* Diagnosis Gammopathy, benign monoclonal Monoclonal paraproteinemia [facility] Diagnosis Monoclonal gammopathy- Primary Monoclonal paraproteinemia Polyneuropathy Unspecified hereditary and idiopathic peripheral neuropathy [facility] Diagnosis 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 IgG monoclonal gammopathy Monoclonal paraproteinemia Polyneuropathy Unspecified hereditary and idiopathic peripheral neuropathy 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 documented in this encounter [facility] Discharge instructionsAmbulatory Orders* Physical Therapy Referral Location: None Selected [facility] Work Phone: Reason for referral (narrative)* Diagnostic Procedure Only (Routine) - Closed Specialty Diagnoses / Procedures Referred By Contac t Referred To Contact XR IMAGING Diagnoses Monoclonal gammopathy Procedures XR BONE SURVEY ROUTINE RADIOLOGIC EXAMINATION OSSEOUS SURVEY COMPL Carlos Storey, DO [address] [place] [address] Xr Imaging Referral ID Status Reason Start Date Expiration Date V isits Requested Visits Authorized [id number] Closed Auto-Generate d Referral 03/18/2022 04/17/2023 1 1 [facility] for referral (narrative)* Diagnostic Procedure Only (Routine) - Closed Specialty Diagnoses / Procedures Referred By Contac t Referred To Contact XR IMAGING Diagnoses Monoclonal gammopathy Procedures XR BONE SURVEY ROUTINE RADIOLOGIC EXAMINATION OSSEOUS SURVEY COMPL Carlos Storey, DO [address] [facility] [facility] [place] [address] Xr Imaging Referral ID Status Reason Start Date Expiration Date V isits Requested Visits Authorized [id number] Closed Auto-Generate d Referral 03/18/2022 04/17/2023 1 1 [facility] for referral (narrative)* Diagnostic Procedure Only (Routine) - Pending Review Specialty Diagnoses / Procedures Referred By Contac t Referred To Contact XR IMAGING Diagnoses Gammopathy, benign monoclonal Procedures XR BONE SURVEY ROUTINE RADIOLOGIC EXAMINATION OSSEOUS SURVEY COMPL Carlos Storey, DO [address] [facility] [place] [address] Xr Imaging Referral ID Status Reason Start Date Expiration Date Visits Requested Visits Authorized [id number] Pending Review Auto-Generat ed Referral 10/31/2022 11/29/2023 1 1 [facility] for referral (narrative)* Diagnostic Procedure Only (Routine) - Closed Specialty Diagnoses / Procedures Referred By Contac t Referred To Contact XR IMAGING Diagnoses Gammopathy, benign monoclonal Procedures XR BONE SURVEY ROUTINE RADIOLOGIC EXAMINATION OSSEOUS SURVEY COMPL Carlos Storey, DO [address] [place] [address] [place] [address] Referral ID Status Reason Start Date Expiration Date V isits Requested Visits Authorized [id number] Closed Auto-Generate d Referral 10/31/2022 11/29/2023 1 1 [facility] for visit Narrative* Diagnostic Procedure Only (Routine) - Closed Specialty Diagnoses / Procedures Referred By Contelizabeth t Referred To Contact XR IMAGING Diagnoses Monoclonal gammopathy Procedures XR BONE SURVEY ROUTINE RADIOLOGIC EXAMINATION OSSEOUS SURVEY COMPL Carlos Storey, DO [address] [place] [address] Xr Imaging Referral ID Status Reason Start Date Expiration Date V isits Requested Visits Authorized [id number] Closed Auto-Generate d Referral 03/18/2022 04/17/2023 1 1 [facility] for visit Narrative* Diagnostic Procedure Only (Routine) - Closed Specialty Diagnoses / Procedures Referred By Qian saini Referred To Contact XR IMAGING Diagnoses Gammopathy, benign monoclonal Procedures XR BONE SURVEY ROUTINE RADIOLOGIC EXAMINATION OSSEOUS SURVEY COMPL Carlos Storey, DO [address] [place] [address] [place] [address] Referral ID Status Reason Start Date Expiration Date V isits Requested Visits Authorized [id number] Closed Auto-Generate d Referral 10/31/2022 11/29/2023 1 1 [facility] Chief Complaint and Reason for Visit Chief Complaint CT TEMPLATING FOR TK A LT TOTAL KNEE W ARUNA LT TOTAL KNEE W ARUNA left knee left knee xray LTK/DR TO FAX NEUROPATHY left knee LEFT KNEE Reason for Visit Other acute postproc edural pain S/P total knee arthroplasty S/P total knee arthroplasty Greater trochanteric bursitis of left hip Iliotibial band syndrome, left leg S/P total knee arthroplasty Greater trochanteric bursitis of left hip Iliotibial band syndrome, left leg S/P total knee arthroplasty Chief Complaint LEFT KNEE TYPE 2 DM POISON KIRSTIE Reason for Visit Greater trochanteric bursitis of left hip Iliotibial band syndrome, left leg S/P total knee arthroplasty Orthopedic aftercare 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 Complaint TYPE 2 DM POISON KIRSTIE LACERATION Reason for Visit Irritant contact thanh matitis 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 Complaint TYPE 2 DM POISON KIRSTIE LACERATION ABNORMAL EKG ABNORMAL EKG Reason for Visit Irritant contact thanh matitis 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 Complaint POISON KIRSTIE LACERATION ABNORMAL EKG ABNORMAL EKG POISON KIRSTIE Reason for Visit Irritant contact thanh matitis due to plant Essential hypertension Poison kirstie dermatitis Chief Complaint POISON KIRSTIE LACERATION ABNORMAL EKG ABNORMAL EKG POISON KIRSTIE LUMBAR IVDD,SPONDYLOSIS,STENOSIS,RX HERE CAROTID STENOSIS Reason for Visit Irritant contact thanh matitis due to plant Essential hypertension Poison kirstie dermatitis Chief Complaint POISON KIRSTIE LACERATION ABNORMAL EKG ABNORMAL EKG POISON KIRSTIE LUMBAR IVDD,SPONDYLOSIS,STENOSIS,RX HERE CAROTID STENOSIS Neuropathy Reason for Visit Irritant contact thanh matitis due to plant Essential hypertension Poison kirstie dermatitis Absent pedal pulses Drug-induced tremor Low back pain Neck pain Polyneuropathy Chief Complaint LACERATION ABNORMAL EKG ABNORMAL EKG POISON KIRSTIE CAROTID STENOSIS Neuropathy LUMBAR IVDD,SPONDYLOSIS,STENOSIS,RX HERE Reason for Visit Essential hypertensi on Poison kirstie dermatitis Absent pedal pulses Drug-induced tremor Low back pain Neck pain Polyneuropathy Chief Complaint LACERATION ABNORMAL EKG ABNORMAL EKG POISON KIRSTIE CAROTID STENOSIS Neuropathy Other specified symptoms and signs involving the c LUMBAR IVDD,SPONDYLOSIS,STENOSIS,RX HERE Reason for Visit Essential hypertensi on Poison kirstie dermatitis Absent pedal pulses Drug-induced tremor Low back pain Neck pain Polyneuropathy Chief Complaint LACERATION ABNORMAL EKG ABNORMAL EKG POISON KIRSTIE CAROTID STENOSIS Neuropathy Other specified symptoms and signs involving the c OCCLUSION AND STENOSIS OF BILATERAL ARTERIES LUMBAR IVDD,SPONDYLOSIS,STENOSIS,RX HERE Reason for Visit Essential hypertensi on Poison kirstie dermatitis Absent pedal pulses Drug-induced tremor Low back pain Neck pain Polyneuropathy Chief Complaint POISON KIRSTIE CAROTID STENOSIS Neuropathy Other specified symptoms and signs involving the c OCCLUSION AND STENOSIS OF BILATERAL ARTERIES LUMBAR IVDD,SPONDYLOSIS,STENOSIS,RX HERE Colonoscopy RECALL LETTER 2 M FU E ORDER EORDER- History of metal removed from eye LOW BACK PAIN Cartoid Stenosis Reason for Visit Essential hypertensi on Poison kirstie dermatitis Absent pedal pulses Drug-induced tremor Low back pain Neck pain Polyneuropathy Personal history of colonic polyps Essential tremor Drug-induced tremor Low back pain Neck pain Polyneuropathy Personal history of colonic polyps Stenosis of right carotid artery Chief Complaint CAROTID STENOSIS Neuropathy Other specified symptoms and signs involving the c OCCLUSION AND STENOSIS OF BILATERAL ARTERIES LUMBAR IVDD,SPONDYLOSIS,STENOSIS,RX HERE Colonoscopy RECALL LETTER 2 M FU E ORDER EORDER- History of metal removed from eye LOW BACK PAIN Cartoid Stenosis LEFT KNEE room 2 R CAROTID ENDARTERECTOMY R CAROTID ENDARTERECTOMY R CAROTID ENDARTERECTOMY Reason for Visit Absent pedal pulses Drug-induced tremor Low back pain Neck pain Polyneuropathy Personal history of colonic polyps Essential tremor Drug-induced tremor Low back pain Neck pain Polyneuropathy Personal history of colonic polyps Stenosis of right carotid artery S/P total knee arthroplasty Postoperative hematoma Stenosis of right carotid artery Chief Complaint CAROTID STENOSIS Neuropathy Other specified symptoms and signs involving the c OCCLUSION AND STENOSIS OF BILATERAL ARTERIES LUMBAR IVDD,SPONDYLOSIS,STENOSIS,RX HERE Colonoscopy RECALL LETTER 2 M FU E ORDER EORDER- History of metal removed from eye LOW BACK PAIN Cartoid Stenosis LEFT KNEE room 2 PREOP R CAROTID ENDARTERECTOMY R CAROTID ENDARTERECTOMY R CAROTID ENDARTERECTOMY SWELLING CAROTID POST OP SWELLING AT RIGHT NECK INCISION R CAROTID ENDARTERECTOMY 12/10 Reason for Visit Absent pedal pulses Drug-induced tremor Low back pain Neck pain Polyneuropathy Personal history of colonic polyps Essential tremor Drug-induced tremor Low back pain Neck pain Polyneuropathy Personal history of colonic polyps Stenosis of right carotid artery S/P total knee arthroplasty Postoperative hematoma Stenosis of right carotid artery Postoperative hematoma Stenosis of right carotid artery Postoperative hematoma Chief Complaint Other specified symp toms and signs involving the c OCCLUSION AND STENOSIS OF BILATERAL ARTERIES LUMBAR IVDD,SPONDYLOSIS,STENOSIS,RX HERE Colonoscopy RECALL LETTER 2 M FU E ORDER EORDER- History of metal removed from eye LOW BACK PAIN Cartoid Stenosis LEFT KNEE room 2 PREOP R CAROTID ENDARTERECTOMY R CAROTID ENDARTERECTOMY R CAROTID ENDARTERECTOMY SWELLING CAROTID POST OP SWELLING AT RIGHT NECK INCISION R CAROTID ENDARTERECTOMY 12/10 4 M FU RIGHT KNEE Rm 2 Reason for Visit Personal history of colonic polyps Drug-induced tremor Essential tremor Low back pain Neck pain Polyneuropathy Personal history of colonic polyps Stenosis of right carotid artery S/P total knee arthroplasty Postoperative hematoma Stenosis of right carotid artery Postoperative hematoma Stenosis of right carotid artery Postoperative hematoma Hyperammonemia Drug-induced tremor Essential tremor Low back pain Neck pain Polyneuropathy Mechanical pain of right knee Osteoarthritis of right knee Chief Complaint LUMBAR IVDD,SPONDYLO SIS,STENOSIS,RX HERE Colonoscopy RECALL LETTER 2 M FU E ORDER EORDER- History of metal removed from eye LOW BACK PAIN Cartoid Stenosis LEFT KNEE room 2 PREOP R CAROTID ENDARTERECTOMY R CAROTID ENDARTERECTOMY R CAROTID ENDARTERECTOMY SWELLING CAROTID POST OP SWELLING AT RIGHT NECK INCISION R CAROTID ENDARTERECTOMY 12/10 4 M FU RIGHT KNEE Rm 2 LOSS OF BALANCE LFT ELEVATION, HIGH AMMONIA, HX ETOH Reason for Visit Personal history of colonic polyps Drug-induced tremor Essential tremor Low back pain Neck pain Polyneuropathy Personal history of colonic polyps Stenosis of right carotid artery S/P total knee arthroplasty Postoperative hematoma Stenosis of right carotid artery Postoperative hematoma Stenosis of right carotid artery Postoperative hematoma Hyperammonemia Drug-induced tremor Essential tremor Low back pain Neck pain Polyneuropathy Mechanical pain of right knee Osteoarthritis of right knee Chief Complaint Colonoscopy RECALL L ROSSANA 2 M FU E ORDER EORDER- History of metal removed from eye LOW BACK PAIN Cartoid Stenosis LEFT KNEE room 2 PREOP R CAROTID ENDARTERECTOMY R CAROTID ENDARTERECTOMY R CAROTID ENDARTERECTOMY SWELLING CAROTID POST OP SWELLING AT RIGHT NECK INCISION R CAROTID ENDARTERECTOMY 12/10 4 M FU RIGHT KNEE Rm 2 LOSS OF BALANCE LFT ELEVATION, HIGH AMMONIA, HX ETOH Reason for Visit Personal history of colonic polyps Drug-induced tremor Essential tremor Low back pain Neck pain Polyneuropathy Personal history of colonic polyps Stenosis of right carotid artery S/P total knee arthroplasty Postoperative hematoma Stenosis of right carotid artery Postoperative hematoma Stenosis of right carotid artery Postoperative hematoma Hyperammonemia Drug-induced tremor Essential tremor Low back pain Neck pain Polyneuropathy Mechanical pain of right knee Osteoarthritis of right knee Chief Complaint LEFT KNEE room 2 PREOP R CAROTID ENDARTERECTOMY R CAROTID ENDARTERECTOMY R CAROTID ENDARTERECTOMY SWELLING CAROTID POST OP SWELLING AT RIGHT NECK INCISION R CAROTID ENDARTERECTOMY 12/10 4 M FU RIGHT KNEE Rm 2 LOSS OF BALANCE LFT ELEVATION, HIGH AMMONIA, HX ETOH NEUROPATHY LOSS OF BALANCE / RX HERE Reason for Visit S/P total knee arthr oplasty Postoperative hematoma Stenosis of right carotid artery Postoperative hematoma Stenosis of right carotid artery Postoperative hematoma Hyperammonemia Drug-induced tremor Essential tremor Low back pain Neck pain Polyneuropathy Mechanical pain of right knee Osteoarthritis of right knee Chief Complaint 4 M FU RIGHT KNEE Rm 2 LOSS OF BALANCE LFT ELEVATION, HIGH AMMONIA, HX ETOH NEUROPATHY LOSS OF BALANCE / RX HERE 4 M FU Reason for Visit Drug-induced tremor Essential tremor Low back pain Neck pain Polyneuropathy Hyperammonemia Mechanical pain of right knee Osteoarthritis of right knee Drug-induced tremor Essential tremor Low back pain Neck pain Polyneuropathy Hyperammonemia Chief Complaint NEUROPATHY LOSS OF B ALANCE / RX HERE 4 M FU POISON KIRSTIE LEFT KNEE room 2 UNSPECIFIED INTERNAL DERANGEMENT OF RIGHT KNEE Reason for Visit Drug-induced tremor Essential tremor Low back pain Neck pain Polyneuropathy Hyperammonemia Left knee pain Right knee pain Chief Complaint 4 M FU POISON KIRSTIE LEFT KNEE room 2 UNSPECIFIED INTERNAL DERANGEMENT OF RIGHT KNEE RIGHT KNEE INCREASED BACK PAIN Essential (primary) hypertension Essential (primary) hypertension Reason for Visit Drug-induced tremor Essential tremor Low back pain Neck pain Polyneuropathy Hyperammonemia Left knee pain Right knee pain Osteoarthritis of right knee Right lateral epicondylitis Tear of lateral meniscus of right knee Tear of medial meniscus of right knee Myalgia Drug-induced tremor Essential tremor Low back pain Neck pain Polyneuropathy Hyperammonemia Chief Complaint POISON KIRSTIE LEFT KNEE room 2 UNSPECIFIED INTERNAL DERANGEMENT OF RIGHT KNEE RIGHT KNEE INCREASED BACK PAIN Essential (primary) hypertension Essential (primary) hypertension POISON KIRSTIE 5 MO VESTIBULAR/RX HERE Reason for Visit Left knee pain Right knee pain Osteoarthritis of right knee Right lateral epicondylitis Tear of lateral meniscus of right knee Tear of medial meniscus of right knee Myalgia Drug-induced tremor Essential tremor Low back pain Neck pain Polyneuropathy Hyperammonemia Family History No Family History Records Found Relationship Condition Age at Onset Recorded Date/T meir father Myocardial infarction Unknown Hypertension Unknown Alcoholism Unknown mother Malignant neoplasm Unknown Diabetes mellitus Unknown brother Cardiac disease Unknown Malignant neoplasm Unknown grandfather Myocardial infarction Unknown Cerebrovascular accident (CVA) Unknown Carotid artery disease Unknown Advance Directives No Advanced Directives Records Found Advance Directive Response Recorded Date/ Time Advance Directives No July 9:48am Living Will No November 05 2:48pm Power of Burlap Man No November 05, 2021 2:48pm Documents on File Type Date Recorded Patient Upstairs Maid Expl anation Advance Directive(s) 04/07/2022 11:44 AM Documents on File Type Date Recorded Patient Upstairs Maid Expl anation Advance Directive(s) 04/17/2022 8:57 AM Advance Directive(s) 04/07/2022 11:44 AM Advance Directive Response Recorded Date/ Time Advance Directives No July 9:48am Living Will No June 17, 2022 2:10pm Power of [employer]urlap Man No June 17 2:10pm Advance Directive Response Recorded Date/ Time Advance Directives No June 30 8:40am Living Will No June 30, 2022 8:40am Power of [place]url[place] Man No June 30 8:40am Advance Directive Response Recorded Date/ Time Advance Directives No June 30 7:40am Living Will No June 30, 2022 7:40am Power of [place]url[place] Man No June 30 7:40am Advance Directive Response Recorded Date/ Time Advance Directives No June 30 7:40am Living Will No November 13 12:28pm Power of [place]urlap Man No November 13, 2022 12:28pm Advance Directive Response Recorded Date/ Time Advance Directives No June 30 7:40am Living Will No December 09 2:51pm Power of [place]urlap Man No December 09, 2022 2:51pm Advance Directive Response Recorded Date/ Time Advance Directives No June 30 8:40am Living Will No December 09 3:51pm Power of [place]url[employer] Man No December 09, 2022 3:51pm Advance Directive Response Recorded Date/ Time Advance Directives No May 18 12:05pm Living Will No May 18, 2023 12:05pm Power of [employer]urlap Man No May 18 12:05pm Advance Directive Response Recorded Date/ Time Advance Directives No September 03, 2023 9:41am Living Will No September 03 9:41am Power of [place]urlap Man No September 03, 2023 9:41am Reason for Referral Specialty Diagnoses / Procedures Referred By Qian saini Referred To Contact CT IMAGING Diagnoses Multiple myeloma not having achieved remission (HCC) Procedures CT WHOLE BODY SKULL TO KNEE WO IVCON UNLISTED COMPUTED TOMOGRAPHY PROCEDURE Carlos Storey DO [address] [place] [address] Ct Imaging Referral ID Status Reason Start Date Expiration Date Visits Requested Visits Authorized [id number] Authorized Auto-Generat ed Referral 04/02/2022 05/02/2023 1 1 Summary Purpose Additional Source Comments Goals (unrecognized section and content) Goals may be documented in a n alternate sectionGoals may be documented in an alternate sectionGoals may be documented in an alternate sectionGoals may be documented in an alternate sectionGoals may be documented in an alternate sectionGoals may be documented in an alternate sectionGoals may be documented in an alternate sectionGoals may be documented in an alternate sectionGoals may be documented in an alternate sectionGoals may be documented in an alternate sectionGoals may be documented in an alternate sectionGoals may be documented in an alternate sectionGoals may be documented in an alternate sectionGoals may be documented in an alternate sectionGoals may be documented in an alternate sectionGoals may be documented in an alternate sectionGoals may be documented in an alternate section Source Comments (unrecognize d section and content) In the event this informatio n is protected by the Federal Confidentiality of Alcohol and Drug Abuse Patient Records regulations: The Federal rules restrict any use of the information to criminally investigate or prosecute any alcohol or drug abuse patient.[facility] the event this information is protected by the Federal Confidentiality of Alcohol and Drug Abuse Patient Records regulations: The Federal rules restrict any use of the information to criminally investigate or prosecute any alcohol or drug abuse patient.[facility] the event this information is protected by the Federal Confidentiality of Alcohol and Drug Abuse Patient Records regulations: The Federal rules restrict any use of the information to criminally investigate or prosecute any alcohol or drug abuse patient.[facility] the event this information is protected by the Federal Confidentiality of Alcohol and Drug Abuse Patient Records regulations: The Federal rules restrict any use of the information to criminally investigate or prosecute any alcohol or drug abuse patient.[facility] the event this information is protected by the Federal Confidentiality of Alcohol and Drug Abuse Patient Records regulations: The Federal rules restrict any use of the information to criminally investigate or prosecute any alcohol or drug abuse patient.[facility] the event this information is protected by the Federal Confidentiality of Alcohol and Drug Abuse Patient Records regulations: The Federal rules restrict any use of the information to criminally investigate or prosecute any alcohol or drug abuse patient.[facility] HospitalIn the event this information is protected by the Federal Confidentiality of Alcohol and Drug Abuse Patient Records regulations: The Federal rules restrict any use of the information to criminally investigate or prosecute any alcohol or drug abuse patient.[facility] HospitalIn the event this information is protected by the Federal Confidentiality of Alcohol and Drug Abuse Patient Records regulations: The Federal rules restrict any use of the information to criminally investigate or prosecute any alcohol or drug abuse patient.[facility] HospitalIn the event this information is protected by the Federal Confidentiality of Alcohol and Drug Abuse Patient Records regulations: The Federal rules restrict any use of the information to criminally investigate or prosecute any alcohol or drug abuse patient.[facility] HospitalIn the event this information is protected by the Federal Confidentiality of Alcohol and Drug Abuse Patient Records regulations: The Federal rules restrict any use of the information to criminally investigate or prosecute any alcohol or drug abuse patient.[facility] HospitalIn the event this information is protected by the Federal Confidentiality of Alcohol and Drug Abuse Patient Records regulations: The Federal rules restrict any use of the information to criminally investigate or prosecute any alcohol or drug abuse patient.[facility] HospitalIn the event this information is protected by the Federal Confidentiality of Alcohol and Drug Abuse Patient Records regulations: The Federal rules restrict any use of the information to criminally investigate or prosecute any alcohol or drug abuse patient.[facility] HospitalIn the event this information is protected by the Federal Confidentiality of Alcohol and Drug Abuse Patient Records regulations: The Federal rules restrict any use of the information to criminally investigate or prosecute any alcohol or drug abuse patient.[facility] HospitalIn the event this information is protected by the Federal Confidentiality of Alcohol and Drug Abuse Patient Records regulations: The Federal rules restrict any use of the information to criminally investigate or prosecute any alcohol or drug abuse patient.[facility] HospitalIn the event this information is protected by the Federal Confidentiality of Alcohol and Drug Abuse Patient Records regulations: The Federal rules restrict any use of the information to criminally investigate or prosecute any alcohol or drug abuse patient.[facility] HospitalIn the event this information is protected by the Federal Confidentiality of Alcohol and Drug Abuse Patient Records regulations: The Federal rules restrict any use of the information to criminally investigate or prosecute any alcohol or drug abuse patient.[facility] HospitalIn the event this information is protected by the Federal Confidentiality of Alcohol and Drug Abuse Patient Records regulations: The Federal rules restrict any use of the information to criminally investigate or prosecute any alcohol or drug abuse patient.[facility] HospitalIn the event this information is protected by the Federal Confidentiality of Alcohol and Drug Abuse Patient Records regulations: The Federal rules restrict any use of the information to criminally investigate or prosecute any alcohol or drug abuse patient.[facility] HospitalIn the event this information is protected by the Federal Confidentiality of Alcohol and Drug Abuse Patient Records regulations: The Federal rules restrict any use of the information to criminally investigate or prosecute any alcohol or drug abuse patient.[facility] HospitalIn the event this information is protected by the Federal Confidentiality of Alcohol and Drug Abuse Patient Records regulations: The Federal rules restrict any use of the information to criminally investigate or prosecute any alcohol or drug abuse patient.[facility] HospitalIn the event this information is protected by the Federal Confidentiality of Alcohol and Drug Abuse Patient Records regulations: The Federal rules restrict any use of the information to criminally investigate or prosecute any alcohol or drug abuse patient.[facility] HospitalIn the event this information is protected by the Federal Confidentiality of Alcohol and Drug Abuse Patient Records regulations: The Federal rules restrict any use of the information to criminally investigate or prosecute any alcohol or drug abuse patient.[facility] HospitalIn the event this information is protected by the Federal Confidentiality of Alcohol and Drug Abuse Patient Records regulations: The Federal rules restrict any use of the information to criminally investigate or prosecute any alcohol or drug abuse patient.[facility] HospitalIn the event this information is protected by the Federal Confidentiality of Alcohol and Drug Abuse Patient Records regulations: The Federal rules restrict any use of the information to criminally investigate or prosecute any alcohol or drug abuse patient.[facility] HospitalIn the event this information is protected by the Federal Confidentiality of Alcohol and Drug Abuse Patient Records regulations: The Federal rules restrict any use of the information to criminally investigate or prosecute any alcohol or drug abuse patient.[facility] HospitalIn the event this information is protected by the Federal Confidentiality of Alcohol and Drug Abuse Patient Records regulations: The Federal rules restrict any use of the information to criminally investigate or prosecute any alcohol or drug abuse patient.[facility] Reason for Visit (unrecogniz ed section and content) Reason Comments New Patient Reason Comments New Patient Evaluation Specialty Diagnoses / Procedures Referred By Qian saini Referred To Contact Hematology/Oncology / HEMATOLOGY/ONCOLOGY 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 SILVERIO SALMERON* FIRST AVAILABLE PER PROVIDER'S SCHEDULE Procedures OFFICE/OUTPATIENT NEW MODERATE MDM 45-59 MINUTES NEW PATIENT Silverio Salmeron [address] [place] [address] Carlos Storey, DO [address] [place] [address] Referral ID Status Reason Start Date Expiration Date Visits Re quested Visits Authorized [id number] Closed 03/18/2022 11/22/2022 1 1 Reason Comments Results Reason Comments Established Patient Specialty Diagnoses / Procedures Referred By Contac t Referred To Contact Hematology/Oncology / HEMATOLOGY/ONCOLOGY Diagnoses 2 WK OV/LABS AND BONE SURVEY 03/18* Procedures EST SIMPLE Carlos tSorey, DO [address] [place] [address] Carlos Storey, DO [address] [place] [address] Referral ID Status Reason Start Date Expiration Date Visits Re quested Visits Authorized [id number] Closed 04/02/2022 11/22/2022 1 1 Reason Comments Orders Reason Comments Appointment Reason Comments Returning Patient's Call Reason Comments Radiology Pre Procedure Instructions Reason Comments Established Patient Specialty Diagnoses / Procedures Referred By Contac t Referred To Contact Hematology/Oncology / HEMATOLOGY/ONCOLOGY Diagnoses Essential (primary) hypertension OV/CT 04/10/BMBX 04/17* Procedures OFFICE/OUTPATIENT ESTABLISHED MOD MDM 30-39 MIN EST COMPLEX Carlos Storey, DO [address] [place] [address] Carlos Storey, DO [address] [place] [address] Referral ID Status Reason Start Date Expiration Date Visits Re quested Visits Authorized [id number] Closed 05/02/2022 11/22/2022 1 1 Reason Comments Follow Up Reason Comments Results Antiganglioside anti bodies Reason Comments Follow Up Tumor board recommen dations Reason Comments Results Cryoglobulins negati ve Care Teams (unrecognized sec tion and content) Sausage Tier Relationship Specialty Start Date End Date Silverio Salmeron [address] [facility] [address] [place] [address] PCP - General Family Practice 03/18/22 Sausage Tier Relationship Specialty Start Date End Date Silverio Salmeron [address] [facility] [address] [place] [address] PCP - General Family Practice 03/18/22 Sausage Tier Relationship Specialty Start Date End Date Silverio Salmeron [address] [facility] [address] [place] [address] PCP - General Family Practice 03/18/22 Sausage Tier Relationship Specialty Start Date End Date Silverio Salmeron [address] [facility] [address] [place] [address] PCP - General Family Practice 03/18/22 Sausage Tier Relationship Specialty Start Date End Date Silverio Salmeron [address] [facility] [address] [place] [address] PCP - General Family Practice 03/18/22 Sausage Tier Relationship Specialty Start Date End Date Silverio Salmeron [address] [facility] [address] [place] [address] PCP - General Family Practice 03/18/22 Sausage Tier Relationship Specialty Start Date End Date Silverio Salmeron [address] [facility] [address] [place] [address] PCP - General Family Practice 03/18/22 Sausage Tier Relationship Specialty Start Date End Date Silverio Salmeron [address] [facility] [address] [place] [address] PCP - General Family Medicine 03/18/22 Team Status: Active Member Role Status Dates No Primary Care Physician Family Provider Active Dr. Silverio Salmeron MD Primary Care Provider Active Team Status: Inactive Member Role Status Dates Dr. Silverio Salmeron MD Primary Care Provider, Referr ing Provider Active Dr. Roly Chi DO Attending Provider Active Team Status: Inactive Member Role Status Dates Dr. Silverio Salmeron MD Primary Care Provider, Referr ing Provider Active Dr. Hudson Almanzar MD Attending Provider Active Team Status: Active Member Role Status Dates Dr. Silverio Salmeron MD Primary Care Provider Active Dr. Randall Gilbert MD Attending Provider, Referring Provider Active Team Status: Inactive Member Role Status Dates Dr. Silverio Salmeron MD Primary Care Provider, Referr ing Provider Active Dr. Randall Gilbert MD Attending Provider Active Team Status: Active Member Role Status Dates Dr. Silverio Salmeron MD Primary Care Provider Active Dr. Soy Perez MD Attending Provider Active Team Status: Inactive Member Role Status Dates Dr. Silverio Salmeron MD Primary Care Provider Active Dr. Randall Gilbert MD Attending Provider Active Self Referred Referring Provider Active Team Status: Active Member Role Status Dates Dr. Silverio Salmeron MD Primary Care Provider Active Dr. Randall Gilbert MD Attending Provid er, Referring Provider, Other Provider Active Team Status: Inactive Member Role Status Dates Dr. Silverio Salmeron MD Primary Care Provider Active Dr. Gavin Conteh MD Attending Provider Active Team Status: Active Member Role Status Dates Dr. Silverio Salmeron MD Primary Care Provider Active Dr. Randall Gilbert MD Admit Provider, Attending Provider, Referring Provider, Other Provider Active Team Status: Inactive Member Role Status Dates Dr. Silverio Salmeron MD Primary Care Provider Active Dr. Randall Gilbert MD Attending Provider, Referring Provider Active Team Status: Inactive Member Role Status Dates Dr. 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 Silverio Salmeron MD Primary Care Provider Active Dr. Hudson Almanzar MD Attending Provider Active Team Status: Inactive Member Role Status Dates Dr. Silverio Salmeron MD Primary Care Provider Active Dr. Hudson Almanzar MD Attending Provider, Referring Provider Active Team Status: Inactive Member Role Status Dates Dr. Silverio Salmeron MD Primary Care Provider Active Dr. Souleymane Loving MD Attending Provider, Referring Provider Active Team Status: Inactive Member Role Status Dates Dr. Silverio Salmeron MD Primary Care Provider, Attend ing Provider Active Team Status: Inactive Member Role Status Dates Dr. Silverio Salmeron MD Primary Care Provider Active Dr. Randall Gilbert MD Admit Provider, Attending Provider, Referring Provider Active Sausage Tier Relationship Specialty Start Date End Date Silverio Salmeron [address] [facility] [address] [place] [address] PCP - General Family Medicine 03/18/22 Sausage Tier Relationship Specialty Start Date End Date Silverio Salmeron [address] [facility] [address] [place] [address] PCP - General Family Medicine 03/18/22 Carlos Storey, [address] [place] [address] Hematology/Oncology 12/22/22 Team Status: Inactive Member Role Status Dates Dr. Silverio Salmeron MD Primary Care Provider, Referr ing Provider Active Isabel ETIENNE PA-C Attending Provider Active Team Status: Active Member Role Status Dates Dr. Silverio Salmeron MD Primary Care Provider Active Dr. Randall Gilbert MD Attending Provider Active Team Status: Active Member Role Status Dates Dr. Silverio Salmeron MD Primary Care Provider Active Dr. Alicia Kaminski MD Attending Provider Activ e Dr. Randall Gilbert MD Referring Provider Active Team Status: Inactive Member Role Status Dates Dr. Silverio Salmeron MD Primary Care Provider Active Dr. Randall Gilbert MD Attending Provider Active Sausage Tier Relationship Specialty Start Date End Date Silverio Slameron [address] [facility] [address] [place] [address] PCP - General Family Medicine 03/18/22 Carlos Storey, DO [address] [facility] [address] Hematology/Oncology 12/22/22 Sausage Tier Relationship Specialty Start Date End Date Silverio Salmeron [address] [facility] [address] [place] [address] PCP - General Family Medicine 03/18/22 Carlos Storey, DO [address] [facility] [place] [address] Hematology/Oncology 12/22/22 Sausage Tier Relationship Specialty Start Date End Date Silverio Salmeron [address] [facility] [address] [place] [address] PCP - General Family Medicine 03/18/22 Carlos Storey, [address] [place] [address] Hematology/Oncology 12/22/22 Team Status: Inactive Member Role Status Dates Dr. Silverio Salmeron MD Primary Care Pr ovider, Attending Provider, Referring Provider Active Team Status: Active Member Role Status Dates Dr. Silveiro Salmeron MD Primary Care Pr ovider, Attending Provider, Referring Provider Active Team Status: Active Member Role Status Dates Dr. Silverio Salmeron MD Primary Care Provider, Attend ing Provider Active Team Status: Active Member Role Status Dates Dr. Silverio Salmeron MD Primary Care Provider Active Dr. Sven Fournier MD Attending Provider, Referr ing Provider Active Team Status: Inactive Member Role Status Dates Dr. Silverio Salmeron MD Primary Care Provider Active Dr. Sven Fournier MD Attending Provider, Referr ing Provider Active Sausage Tier Relationship Specialty Start Date End Date Silverio Salmeron [address] [facility] [address] [place] [address] PCP - General Family Medicine 03/18/22 Carlos Storey, [address] [place] [address] Hematology/Oncology 12/22/22 Team Status: Inactive Member Role Status Dates Dr. Silverio Salmeron MD Primary Care Provider, Referr ing Provider Active Julianne Barraza PA, PA Attending Provider Active Team Status: Inactive Member Role Status Dates Dr. Silverio Salmeron MD Primary Care Provider Active Dr. Roly Chi DO Attending Provider, Referring Provider Active Team Status: Active Member Role Status Dates Dr. Silverio Salmeron MD Primary Care Provider, Referr ing Provider Active Dr. Soy Perez MD Attending Provider Active Sausage Tier Relationship Specialty Start Date End Date Silverio Salmeron MD [address] [place] [address] PCP - General Family Medicine 03/18/22 Sausage Tier Relationship Specialty Start Date End Date Silverio Salmeron MD [address] [place] [address] PCP - General Family Medicine 03/18/22 Carlos Storey DO [address] [place] [address] Hematology/Oncology 12/22/22 Sausage Tier Relationship Specialty Start Date End Date Silverio Salmeron MD [address] [place] [address] PCP - General Family Medicine 03/18/22 Carlos Storey DO [address] [place] [address] Hematology/Oncology 12/22/22 Sausage Tier Relationship Specialty Start Date End Date Silverio Salmeron MD [address] [place] [address] PCP - General Family Medicine 03/18/22 Carlos Storey DO [address] [place] [address] Hematology/Oncology 12/22/22 (unrecognized sect ion and content) No Status Records FoundNo Status Records FoundNo Status Records FoundNo Status Records Found INFORMATION SOURCE (unrecogn ized section and content) DATE CREATED AUTHOR 11/15/2022 [facility] DATE CREATED AUTHOR AUTHOR'S ORGANIZ ATION 01/22/2023 [facility] DATE CREATED AUTHOR AUTHOR'S ORGANIZ ATION 05/05/[address] [facility] DATE CREATED AUTHOR AUTHOR'S ORGANIZ ATION 08/12/2025 [facility] FOR RECORDS PERTAINING TO PATIENTS WHO ARE [...] BE BASED ON THE PRIMARY CLINICAL RECORDS. [facility] [employer] [facility]. provides no warranty or guarantee of the accuracy or completeness of information in this document.
[2025-08-25] MEDS: Lactated Ringers 1,000 ML 15 ML IV (07:21)
--- NOTE | 2025-08-25 07:47 | PCM.PRE.AN2 ---
ASA Classification* ASA Classification ASA Classification: 3 Assessment & Plan Anesthesia* Anesthesia Assessment Anesthesia Assessment: Discussed sedation and/or anesthesia options, risks, benefits, and alternatives with patient/parents/legal guardian/POA. Questions invited. The patient/parents/legal guardian/POA seems to understand and agrees to proceed with anesthesia plan. Reviewed the physical assessment, medical history, allergy history and patient home medications list prior to surgery/procedure/anesthetic and documented any changes. Performed airway and anesthesia risk assessments. Anesthesia Type Anesthesia Type: MAC Anesthesia Focused Assessment* Temperature: 97.6 F Pulse Rate: 63 Blood Pressure: 120/72 Respiratory Rate: 18 Pulse Ox: 97 Airway Assessment Mouth opens: >3 cm Mallampati Score: II Labs Anesthesia Preop lab: CBC WBC, (4.4-11.0) 11.1 K/mm3 H 07/13/25, 11:52 RBC, (4.6-6.2) 4.26 M/mm3 L 07/13/25, 11:52 Hgb, (13.0-16.5) 12.9 g/dL L 07/13/25, 11:52 Hct, (40-54) 38.3 % L 07/13/25, 11:52 Plt Count, (150-450) 273 K/mm3 07/13/25, 11:52 CHEMISTRY Potassium, (3.3-5.1) 4.6 mmol/L 07/13/25, 11:52 Sodium, (133-145) 137 mmol/L 07/13/25, 11:52 Magnesium, (1.6-2.6) 1.9 mg/dL 10/13/24, 07:47 BUN, (4-19) 16 mg/dL 07/13/25, 11:52 Creatinine, (0.70-1.20) 1.10 mg/dL 07/13/25, 11:52 Glucose, (70-99) 141 mg/dL H 07/13/25, 11:52 POC Glucose, (74-106) 227 mg/dL H 11/01/24, 10:58 TSH, (0.300-4.200) 3.150 uIU/mL 07/13/25, 11:52 COAG PT, (11.7-14.9) 13.2 SECONDS 10/13/24, 07:47 Pre-Assessment Diagnosis/Proposed Procedure Planned Operative Procedure(s): EGD Anesthesia History Anesthesia History - property utilization officer: Anesthesia History - property utilization officer Hx Hospitalization No 08/22/25 10:21 Any Problems With Anesthesia No 08/22/25 10:21 Cholinesterase deficiency No 08/22/25 10:21 You/Your Family Experience No 08/22/25 10:21 fever (hyperthermia) with Relationship Recent Exposure to Contagious No 08/25/25 07:06 Disease Does patient have nerve No 08/22/25 10:21 stimulator Patient instructed to have device shut off --Does patient have Pacemaker No 08/25/25 07:06 or ICD? When Was Last Pacemaker Check QUESTION #4 FULL TEXT: You/Your Family Experience fever (hyperthermia) with Anesthesia Last Oral Intake Last Oral intake: Last Oral Intake NPO since 06:00 08/25/25 07:06 Meds taken in AM with sips of Yes 08/25/25 07:06 water? Meds patient instructed to losartan, metoprolol, 08/25/25 07:06 take am of surgery amlodipine, lithium PONV PONV - property utilization officer: PONV - property utilization officer Female No 08/22/25 10:21 HX of Motion Sickness No 08/22/25 10:21 HX of N/V After Surgery No 08/22/25 10:21 Non-Smoker Yes 08/22/25 10:21 Duration of Surgery greater No 08/22/25 10:21 than 60 minutes Number of Risk Factors 1 08/22/25 10:21 PONV Score Low Risk 08/22/25 10:21 Height & Weight Height & Weight: Anesthesia: Height & Weight Height 6 ft 1 in 08/25/25 07:06 Weight: 121 kg 08/25/25 07:06 Body Mass Index (BMI) 35.2 08/25/25 07:06 Respiratory Assessment Respiratory Assessment - property utilization officer: Respiratory Tract Infection Hx - property utilization officer Hx Respiratory Tract Infection No 08/22/25 10:21 STOP Sleep Apnea STOP Sleep Apnea - property utilization officer: STOP Sleep Apnea - property utilization officer Hx Hypertension Yes: CONTROLLED WITH MED 08/22/25 10:21 Hx Sleep Apnea No 08/22/25 10:21 CPAP No 08/22/25 10:21 BIPAP Do you snore loudly (louder No 08/22/25 10:21 than talking or can be heard Do you often feel tired/ No 08/22/25 10:21 fatigued/ sleepy during daytime? Has anyone observed you stop No 08/22/25 10:21 breathing during sleep? STOP Results Negative 08/22/25 10:21 QUESTION #5 FULL TEXT : Do you snore loudly (louder than talking or can be heard through closed doors)? 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 Specify any problems Hx of Preganancy in last 3 N/A 08/22/25 10:21 Months Nurse Filling Out Transfusion [email or web address] 08/22/25 10:21 & Questions: Date: 08/22/25 08/22/25 10:21 Time: 10:23 08/22/25 10:21 Patient unable to answer at this time (ie. confused, unrespo /Reproduction History /Reproductive History - property utilization officer: /Reproductive Hx- property utilization officer Hx Now Gestational Age (in weeks): EDC: Hx Hx Para Hx Section SAB No 08/22/25 10:21 Active Medications Active Medications: Current Medications Generic Name Dose Route Start Last Admin Trade Name Freq PRN Reason Stop Dose Admin Lactated Ringer's 1,000 mls @ 15 mls/hr 08/25/25 07:00 08/25/25 07:21 IV 15 mls/hr .Q48H MELISSA Administration PFSH Medical History Marijuana use Gastric reflux URI (upper respiratory infection) Carotid stenosis Hematoma of neck Wears glasses Alcohol use Bipolar disorder High cholesterol Seizures Non-smoker History of echocardiogram History of heart attack Hypertension Cardiology follow-up encounter History of stress test Osteoarthritis of left knee Carotid stenosis, bilateral Shortness of breath Bipolar 1 disorder Essential hypertension Pharyngitis Acute bronchitis Chest pain Shoulder pain Arthritis Home Medications ?Medication ?Instructions ?Recorded ?Last Taken ?Type amlodipine 10 mg tablet 10 mg PO DAILY blood pressure 08/07/20 08/25/25 History clopidogrel 75 mg tablet (Plavix) 75 mg PO DAILY BLODD THINNER 10/16/21 08/18/25 History accu-check fe plus See Rx Instructions .Route 09/10/22 08/25/25 History .COMPLEX DIABETES metoprolol succinate 50 mg 100 mg PO DAILY heart 09/10/22 08/25/25 History tablet,extended release 24 hr losartan 100 mg tablet (Cozaar) 100 mg PO DAILY BP 11/26/22 08/25/25 History metformin 500 mg tablet,extended 500 mg PO BID DIABETES 11/26/22 08/24/25 History release 24 hr aspirin 81 mg tablet,delayed 81 mg PO DAILY 09/03/23 08/18/25 History release lactulose 10 gram/15 mL oral 15 ml PO DAILY Tremor #1,350 mL 03/01/25 08/24/25 Rx solution tizanidine 4 mg tablet 4 mg PO TID PRN muscle spasticity; 03/01/25 08/24/25 Rx muscle pain #270 tabs lithium carbonate 300 mg capsule 900 mg (3 x 300 mg) PO .COMPLEX 07/13/25 08/25/25 Rx DEPRESSION 90 days #270 caps trazodone 50 mg tablet 100 mg (2 x 50 mg) PO QHS PRN 07/13/25 08/24/25 Rx sleep #180 tabs amitriptyline 100 mg tablet 100 mg PO QHS 07/26/25 08/24/25 History biotin 2,500 mcg capsule 2,500 mcg PO QDAY 07/26/25 08/24/25 History meloxicam 15 mg tablet 15 mg PO QDAY 07/26/25 08/24/25 History pravastatin 20 mg tablet 20 mg PO QHS 07/26/25 08/24/25 History rabeprazole 20 mg tablet,delayed 20 mg PO QAM 07/26/25 08/24/25 History release omeprazole 40 mg capsule,delayed 40 mg PO DAILY 08/22/25 08/24/25 History release Allergy/AdvReac Type Severity Reaction Status Date / Time No Known Allergies Allergy Verified 08/25/25 07:03 Family History Father Myocardial infarction Hypertension Alcoholism Mother Cancer Diabetes Brother Heart disease Hypertension Alcoholism Cancer prostate Grandfather Myocardial infarction CVA (cerebral vascular accident) Carotid arterial disease Surgical History History of carotid endarterectomy History of right-sided carotid endarterectomy Hx of transurethral resection of prostate Hx of total knee arthroplasty History of colonoscopy (~10/2022) History of bursectomy History of arthroscopy of knee History of carpal tunnel release Social History Smoking Status: Never smoker alcohol intake: former substance use type: marijuana Review of Systems (Anesthesia) ROS Narrative System reviewed and no additional complaints, except as documented.
--- NOTE | 2025-08-25 08:00 | EGD_PTH ---
PATIENT: NIKO BROWN LOC: EN U#:[id number] AGE/SX: 65/M ROOM: RE08/25/[address]: Dr. Nathen Vargas MD : 1960 BED: DIS: 08/25/2025 SPEC #: [id number] RECD: 08/25/25 13:16 STATUS: KARINE MUKHERJEE #: [id number] SHONDA: 08/25/25 08:[address]: Nathen Vargas DEPT: SURGICAL PATHOLOGY RECD BY: Cl Yan ENTERED: 08/25/25 14:13 SP TYPE: EGD BIOPSY OTHR DR: Dr. Derrell Salmeron MD Tissues: A - Stomach, NOS Procedures: Surgery Specimen Level IV HEADER OPERATION: EGD with biopsy and hemostasis PRE-OP DIAGNOSIS: Dysphagia, gastric nodule TISSUE SUBMITTED: A- Stomach nodule biopsy MICROSCOPIC DIAGNOSIS A. Stomach, nodule, biopsy: * Polypoid gastric mucosa with hyperplastic epithelial change and prominent stromal vascularity suggestive of hemangioma - see note. Note: If this biopsy is only a portion of a larger lesion the findings may not be nutrition representative. Recommend correlation with clinical and endoscopic findings. MICROSCOPIC DESCRIPTION Slides are reviewed. GROSS DESCRIPTION A. Received in fixative is one container labeled with the patient's name and designated Stomach nodule biopsy. The specimen consists of two irregular fragments of med[place]-red tissue that measure 0.2 and 0.3 cm. The specimen is totally submitted in one cassette. [place] 08/25/2025 CPT:86388
--- NOTE | 2025-08-25 08:08 | PCM.HP.BLA ---
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 Instructions: May resume the day after the completion of Eliquis prescription accu-check fe plus See Rx Instructions .Route 09/10/22 07/26/25 History .COMPLEX DIABETES acetaminophen 500 mg capsule 500 mg PO Q6H PRN Pain 09/10/22 07/26/25 History Held on 11/01/24. Instructions: Duplicate metoprolol succinate 50 mg 100 mg PO DAILY heart 09/10/22 07/26/25 History tablet,extended release 24 hr losartan 100 mg tablet (Cozaar) 100 mg PO DAILY BP 11/26/22 07/26/25 History metformin 500 mg tablet,extended 500 mg PO BID DIABETES 11/26/22 07/26/25 History release 24 hr aspirin 81 mg tablet,delayed 81 mg PO DAILY 09/03/23 07/26/25 History release Held on 11/01/24. Instructions: Resume on 11/04/24. lactulose 10 gram/15 mL oral 15 ml PO DAILY Tremor #1,350 mL 03/01/25 07/26/25 Rx solution tizanidine 4 mg tablet 4 mg PO TID PRN muscle spasticity; 03/01/25 07/26/25 Rx muscle pain #270 tabs lithium carbonate 300 mg capsule 900 mg (3 x 300 mg) PO .COMPLEX 07/13/25 07/26/25 Rx DEPRESSION 90 days #270 caps trazodone 50 mg tablet 100 mg (2 x 50 mg) PO QHS PRN 07/13/25 07/26/25 Rx sleep #180 tabs amitriptyline 100 mg tablet 25 mg PO QHS 07/26/25 History biotin 2,500 mcg capsule 2,500 mcg PO QDAY 07/26/25 07/26/25 History duloxetine 60 mg capsule,delayed 60 mg PO QDAY 07/26/25 07/26/25 History release meclizine 25 mg tablet 25 mg PO BID PRN 07/26/25 07/26/25 History meloxicam 15 mg tablet 15 mg PO QDAY 07/26/25 07/26/25 History pravastatin 20 mg tablet 20 mg PO QHS 07/26/25 07/26/25 History rabeprazole 20 mg tablet,delayed 20 mg PO QAM 07/26/25 07/26/25 History release Have you fallen in the past year?: No PFSH Medical History URI (upper respiratory infection) Carotid stenosis Hematoma of neck Wears glasses Alcohol use Bipolar disorder High cholesterol Seizures Non-smoker History of echocardiogram History of heart attack Hypertension Cardiology follow-up encounter History of stress test Osteoarthritis of left knee Carotid stenosis, bilateral Shortness of breath Bipolar 1 disorder Essential hypertension Pharyngitis Acute bronchitis Chest pain Shoulder pain Arthritis Surgical History History of carotid endarterectomy History of right-sided carotid endarterectomy Hx of transurethral resection of prostate Hx of total knee arthroplasty History of colonoscopy (~10/2022) History of bursectomy History of arthroscopy of knee History of carpal tunnel release Family History Father Myocardial infarction Hypertension Alcoholism Mother Cancer Diabetes Brother Heart disease Hypertension Alcoholism Cancer prostate Grandfather Myocardial infarction CVA (cerebral vascular accident) Carotid arterial disease Social History (Updated 07/26/25 @ 08:37 by Evon Pan) Smoking Status: Never smoker alcohol intake: former substance use type: marijuana HPI HPI HPI: Patient is a 64-year-old male with dysphagia. He reports difficulty swallowing for several years. He had an upper GI about a year ago which showed trapping of the tablet. ROS General General: Yes weight change; No appetite, fatigue, colon cancer, breast cancer or weakness HEENT HEENT: Yes difficulty swallowing; No eye injury, eye surgery, swollen glands or hoarseness Endo Endocrine: Yes diabetes mellitus; No thyroid disease, thyroid cancer, Hair loss, heat intolerance or cold intolerance Skin Skin: No rash or changing moles Breast Breast: No left breast lump, right breast lump, nipple discharge, breast pain, abnormal mammogram, abnormal US or breast enlargement Musc Musculoskeletal: Yes back problems, arthritis and rheumatoid arthritis; No gout or joint pain Cardio Cardiovascular: Yes heart disease, high blood pressure and heart attack; No murmur, pacemaker, atrial fibrillation, heart stent, palpitations, shortness of breath with exertion or chest pain Psych Psychiatric: No depression, anxiety or hearing voices Resp Respiratory: Yes shortness of breath, No sleep apnea, Yes cough, No COPD, No asthma, No emphysema and No wheezing Gastro Gastrointestinal: No abdominal pain, No nausea or vomiting, No diarrhea, No constipation, No blood in stool, Yes acid reflux, No hemorrhoids, No ulcers, No gallbladder problem and No black,tarry stools Hilton Hematologic: Yes blood thinners, No blood disorders, No bleeding, No anemia and Yes blood clots Neuro Neurologic: No system reviewed and no additional complaints, except as documented, No as per HPI, No abnormal gait, Yes abnormal hearing, No abnormal movements, No abnormal speech, No behavioral changes, No burning sensations, No confusion, No convulsions, No disequilibrium, No dizziness, No localized weakness, No frequent falls, No headache(s), No lack of coordination, No loss of vision, No memory loss, Yes numbness, Yes other visual disturbances, Yes radicular pain, No restless legs, No sensory deficit, No syncope, Yes tingling, No tremor(s), No weakness and No other Exam Const General: cooperative Orientation: alert and oriented x3 HENMT Head: normal to inspection Neck Neck: normal visual inspection and full ROM Chest Chest palpation & inspection: normal inspection of the chest Resp Effort & Inspection: normal respiratory effort Auscultation: clear to auscultation bilaterally Cardio Rate: regular rate Rhythm: regular rhythm GI Inspection: non-distended Palpation: soft and nontender Skin General: no rashes or lesions noted Neuro General: patient alert and patient oriented x3 Extrem General: full ROM Psych Appearance: grossly normal Mental Status: mental status grossly normal Assessment and Plan Assessment and Plan (1) Dysphagia: Qualifiers: Dysphagia type: esophageal phase Qualified Code(s): R13.19 - Other dysphagia Plan: The patient has dysphagia and had an upper GI that showed trapping of the barium tablet. I discussed performing EGD with dilation. I discussed the risks and benefits of the procedure. I explained endoscopy in detail to the patient. I explained the risks including but not limited to stroke or heart attack with anesthesia, perforation of the GI tract, bleeding, infection. I explained that any of these could necessitate further emergency surgery. The patient understands and all questions were answered sufficiently. The patient wishes to proceed with procedure. I discussed the increased risk of perforation and bleeding with dilation. Patient understands the risks. Patient will hold his aspirin and Plavix for 5 days. Nathen Vargas MD Pager: [facility] [address] [place] [address], [address] [place] [address] Office: I have examined the patient and the H&P has been reviewed. There are no clinical changes since date of exam.
[2025-08-25] MEDS: Lidocaine 1% (5 ml sdv) 5 ML Vial IV (08:27)
[2025-08-25] MEDS: fentaNYL 100 MCG/2 ML Ampul 50 MCG IV (08:27)
--- NOTE | 2025-08-25 08:48 | PCM.POST.ANE ---
Anesthesia: Postop Eval I Current Vital Signs Temperature: 97.6 F Pulse Rate: 66 Blood Pressure: 126/76 Respiratory Rate: 16 Pulse Ox: 95 Oxygen Delivery Method: Room Air Assessment Airway patent: Yes Spontaneous unlabored respirations: Yes Mental status: Awake and Calm nausea: No Vomiting: No Anesthesia Complication: No Fluid Hydration Crystalloid volume administer (ml): 300 Total IV fluid infused: 300 Progress Note Anesthesia document: Postop Eval 1 completed: Yes
--- NOTE | 2025-08-25 08:54 | OP.EGD_ITS ---
Patient Name: Raghu Huitron Procedure Date: 08/25/2025 8:14 AM Date of : 1960 Age: 65 Procedure: Upper GI endoscopy Indications: Dysphagia Providers: Nathen Vargas MD Referring MD: Derrell Salmeron Medicines: Propofol per Anesthesia Patient Profile: This is a 65 year old male. Refer to note in patient chart for documentation of history and physical. Complications: No immediate complications. Estimated blood loss: Minimal. Procedure: Pre-Anesthesia Assessment: - Prior to the procedure, a History and Physical was performed, and patient medications and allergies were reviewed. The patient's tolerance of previous anesthesia was also reviewed. The risks and benefits of the procedure and the sedation options and risks were discussed with the patient. All questions were answered, and informed consent was obtained. Prior Anticoagulants: The patient has taken no anticoagulant or antiplatelet agents. After reviewing the risks and benefits, the patient was deemed in satisfactory condition to undergo the procedure. After obtaining informed consent, the endoscope was passed under direct vision. Throughout the procedure, the patient's blood pressure, pulse, and oxygen saturations were monitored continuously. The Endoscope was introduced through the mouth, and advanced to the third part of duodenum. The upper GI endoscopy was accomplished without difficulty. The patient tolerated the procedure well. Scope In: 8:28:09 AM Scope Out: 8:40:30 AM Total Procedure Duration Time 0 hours 12 minutes 21 seconds Findings: The esophagus was normal. A single sessile polyp with bleeding and no stigmata of recent bleeding was found in the stomach. The polyp was removed with a cold biopsy forceps. Resection and retrieval were complete. Coagulation for hemostasis using bipolar probe was successful. The examined duodenum was normal. Impression: - Normal esophagus. - A single gastric polyp. Resected and retrieved. Treated with bipolar cautery. - Normal examined duodenum. Recommendation: - Discharge patient to home. - Resume previous diet. - Continue present medications. - Await pathology results. Procedure Code(s): --- Professional --- 15979, Esophagogastroduodenoscopy, flexible, transoral; with biopsy, single or multiple Diagnosis Code(s): --- Professional --- K31.7, Polyp of stomach and duodenum R13.10, Dysphagia, unspecified CPT copyright 2021 [employer]. All rights reserved. The codes documented in this report are preliminary and upon youth minister review may be revised to meet current compliance requirements. Nathen Vargas MD 08/25/2025 8:53:59 AM This report has been signed electronically. Number of Addenda: 0 Note Initiated On: 08/25/2025 8:14 AM
--- NOTE | 2025-08-25 08:54 | OP.PROVAT_ITS ---
08/25/2025 Derrell Salmeron [address] [place] [address] Re : [facility] Salmeron This procedure was performed on Monday, August 25, 2025. My impressions and recommendations are as follows: Impressions : - Normal esophagus. - A single gastric polyp. Resected and retrieved. Treated with bipolar cautery. - Normal examined duodenum. Recommendations : - Discharge patient to home. - Resume previous diet. - Continue present medications. - Await pathology results. My findings are described in the full procedure note, which is enclosed. If I can be of further assistance, please feel free to contact me at Doctor phone number(s): , Work: . Sincerely, Nathen Vargas MD 08/25/2025 8:53:59 AM This report has been signed electronically.
--- NOTE | 2025-08-25 10:32 | POSTOPAN2_ITS ---
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 Spontaneous unlabored Yes 08/25/25 08:49 MEDICAL LAB TECHNICIAN.SHOF respirations Mental status Awake,Calm 08/25/25 08:49 MEDICAL LAB TECHNICIAN.SHOF nausea No 08/25/25 08:49 MEDICAL LAB TECHNICIAN.SHOF Vomiting No 08/25/25 08:49 MEDICAL LAB TECHNICIAN.SHOF Anesthesia Postop Eval I: Fluid Summary Crystalloid volume administer 300 08/25/25 08:49 MEDICAL LAB TECHNICIAN.SHOF (ml) Colloids volume administered ( ml) Blood Product volume administered (ml) Total IV fluid infused 300 08/25/25 08:49 MEDICAL LAB TECHNICIAN.SHOF Anesthesia Postop Eval I: Summary Notes Anesthesia Complication No 08/25/25 08:49 MEDICAL LAB TECHNICIAN.SHOF Anesthesia Complication Comment: Post-operative progress note Anesthesia: Postop Eval II Evaluation Mental status: Awake Pain Level: 0 nausea: No Vomiting: No
--- NOTE | 2025-08-25 10:32 | PCM.POSTANE2 ---
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.SHOF Spontaneous unlabored Yes 08/25/25 08:49 WATER PUMP INSTALLER.SHOF respirations Mental status Awake,Calm 08/25/25 08:49 WATER PUMP INSTALLER.SHOF nausea No 08/25/25 08:49 WATER PUMP INSTALLER.SHOF Vomiting No 08/25/25 08:49 WATER PUMP INSTALLER.SHOF Anesthesia Postop Eval I: Fluid Summary Crystalloid volume administer 300 08/25/25 08:49 WATER PUMP INSTALLER.SHOF (ml) Colloids volume administered ( ml) Blood Product volume administered (ml) Total IV fluid infused 300 08/25/25 08:49 WATER PUMP INSTALLER.SHOF Anesthesia Postop Eval I: Summary Notes Anesthesia Complication No 08/25/25 08:49 WATER PUMP INSTALLER.SHOF Anesthesia Complication Comment: Post-operative progress note Anesthesia: Postop Eval II Evaluation Mental status: Awake Pain Level: 0 nausea: No Vomiting: No
== END 2025-08-25 09:23 | disposition home or self-care (01) ==
LOC: EN 06:49 → AC 06:50
PROVIDERS: PCP Family Medicine; Referring Provider Family Medicine; Visit Provider Surgery
PROC: 0DJ08ZZ Inspection of Upper Intestinal Tract, Via Natural or Artificial Opening Endoscopic (ICD-10-PCS; CPT 43235; principal; 2025-08-25 07:55)
DX: R13.10 Dysphagia, unspecified (principal); E78.00 Pure hypercholesterolemia, unspecified; K31.7 Polyp of stomach and duodenum; I10 Essential (primary) hypertension; Z79.82 Long term (current) use of aspirin; I25.2 Old myocardial infarction; Z79.899 Other long term (current) drug therapy; Z96.659 Presence of unspecified artificial knee joint
CPT/HCPCS: 44361; 82962; 88305; C1889

== ENCOUNTER → 2025-09-18 | Outpatient (CLI) | payer MEDICARE, OTHER, SELFPAY ==
[2025-09-18 12:51] VITALS: BP 95/65; PULSE 58; RESP 18; O2SAT 96; BMI 33.6
[2025-09-18 13:13] VITALS: BP 105/68; PULSE 59; RESP 16; O2SAT 96
== END | disposition home or self-care (01) ==
LOC: CT 12:32
PROVIDERS: PCP Family Medicine; Referring Provider Family Medicine; Visit Provider Family Medicine
DX: I70.90 Unspecified atherosclerosis (principal)
CPT/HCPCS: 76380

== ENCOUNTER → 2025-10-09 | Outpatient (CLI) | payer MEDICARE, OTHER, SELFPAY ==
--- NOTE | 2025-10-09 09:28 | CDU_ITS ---
Reason For Study Reason For Study: HX Rt ICA CEA Rt. Velocities/BP Lt. Velocities/BP Prox CCA 117.4/22.5 cm/sec. Prox CCA 128.6/29.9 cm/sec. Mid CCA 75.4/18.2 cm/sec. Mid CCA 93.7/26.2 cm/sec. Dist CCA 58.2/13.8 cm/sec. Dist CCA 94.1/20.4 cm/sec. Prox ICA 72.1/23.9 cm/sec. Prox ICA 115.6/33.4 cm/sec. Mid ICA 95.2/29.9 cm/sec. Mid ICA 91.8/29.3 cm/sec. Dist ICA 57.9/23.0 cm/sec. Dist ICA 59.2/16.6 cm/sec. Rt. ICA/CCA = 1.3. Lt. ICA/CCA = 1.2. Prox ECA 134.4/6.6 cm/sec. Prox ECA 126.9/14.5 cm/sec. Rt. Vert. 41.5/15.9 cm/sec. Lt. Vert. 39.3/10.0 cm/sec. Right Extracranial There is homogeneous, smooth atherosclerotic plaque noted in the right common carotid artery. There is homogeneous, smooth atherosclerotic plaque noted in the right internal carotid artery. HX Rt ICA CEA. There is intimal thickening but no significant atherosclerotic plaque noted in the right external carotid artery. Antegrade flow is noted in the right vertebral artery. Left Extracranial There is homogeneous, smooth atherosclerotic plaque noted in the left common carotid artery. There is heterogeneous, irregular atherosclerotic plaque noted in the left internal carotid artery. There is heterogeneous, irregular atherosclerotic plaque noted in the left external carotid artery. Antegrade flow is noted in the left vertebral artery. Procedure Carotid Duplex [id number]. This is a Carotid Duplex examination using B-mode, color flow and specral Doppler. The exam was diagnostic. Exam performed in department. VL/Carotid Duplex Ultrasound Interpretation Summary Mild (<50%) stenosis right extracranial internal carotid. Mild (<50%) stenosis left extracranial internal carotid. Patent and antegrade vertebrals bilaterally. Ordering Physician: Stephanie Kinney Referring Physician: Derrell Salmeron Performed By: Ramón Thomas RVT and Student
== END | disposition home or self-care (01) ==
LOC: CVS 09:26
PROVIDERS: PCP Family Medicine; Referring Provider Ophthalmology; Visit Provider Physician Assistant
DX: I65.23 Occlusion and stenosis of bilateral carotid arteries (principal)
CPT/HCPCS: 93880

== ENCOUNTER → 2025-10-11 | Outpatient (CLI) | payer MEDICARE, SELFPAY ==
[2025-10-11 12:17] LABS: Hematocrit 40.1 % (40-54); Hemoglobin 13.7 g/dL (13.0-16.5); Immature Granulocytes Count 0.070 X10^3/uL (0.0-0.0); Mean Corp Hgb Conc 34.2 g/dL (32-36); Mean Corpuscular Volume 88.1 fL (80-94); Mean Platelet Vol. 9.8 fl (6.2-12.0); NRBC Flagged by Analyzer 0 % (0-5); Platelet Count 304 K/mm3 (150-450); RBC Distribution Width CV 13.4 % (11.6-14.6); RBC Distribution Width SD 43.3 fl (35.1-43.9); Red Blood Count 4.55 M/mm3 (4.6-6.2); White Blood Count 12.1 K/mm3 (4.4-11.0)
[2025-10-11 12:47] LABS: AST(SGOT) 25 U/L (<=37); Alanine Aminotransfer ALT/SGPT 27 U/L (<=46); Albumin, Serum 4.1 g/dL (3.4-4.8); Alkaline Phosphatase 51 U/L (40-129); Anion Gap 10 (5-15); BUN 18 mg/dL (4-19); BUN/Creat Ratio 19.2 RATIO (10-20); Calcium,Total 9.5 mg/dL (7.6-11.0); Carbon Dioxide 24.0 mmol/L (21.0-32.0); Chloride 100 mmol/L (98-108); Cholesterol 129 mg/dL (<=200); Globulin 2.5 g/dL (2.2-4.2); Glucose 162 mg/dL (70-99); Low Density Lipoprotein Calc. 61 mg/dL; Magnesium 2.0 mg/dL (1.5-2.2); Potassium 4.3 mmol/L (3.3-5.1); Triglycerides 190 mg/dL; Very Low Density Lipoprotein 38 mg/dL (5-40); cholesterol:hdl ratio screen 3.56
== END | disposition home or self-care (01) ==
LOC: MFPLAB 10:24
PROVIDERS: PCP Family Medicine; Visit Provider Family Medicine
DX: E11.59 Type 2 diabetes mellitus with other circulatory complications (principal)
CPT/HCPCS: 36415; 80053; 80061; 83036; 83735; 85025

== ENCOUNTER 2025-10-17 11:07 | Outpatient (CLI) | payer MEDICARE, OTHER, SELFPAY ==
[2025-10-17 11:09] LABS: Mucous, Urine 0 SEEN /hpf (<or=2+); Red Blood Cells-Urine 0 SEEN /hpf (0-5)
[2025-10-17 12:17] LABS: Color, Urine Yellow (Yellow); Glucose, Dipstick Normal (Normal); Ketone-Dipstick Negative (Negative); Leukocyte Esterase-Dipstick Negative /ul (Negative); Nitrite-Dipstick Negative (Negative); Occult Blood-Urine Negative /ul (Negative); Protein-Dipstick Negative (Negative); Specific Gravity, Urine 1.005 (1.002-1.030); Urine Bilirubin Dipstick Negative (Negative)
[2025-10-17 12:36] LABS: Squamous Epithelial Cells - UA 0-5 SEEN /hpf (0-5)
[2025-10-17 13:01] LABS: Creatinine, Urine (random) 32.70 mg/dL (39.00-259.00); Microalbumin,Random Urine < 12.0 mg/L (<20 mg/L)
== END 2025-10-17 23:59 | disposition home or self-care (01) ==
LOC: LABSPEC 11:07
PROVIDERS: PCP Family Medicine; Visit Provider Family Medicine
DX: E11.59 Type 2 diabetes mellitus with other circulatory complications (principal)
CPT/HCPCS: 81001; 82043; 82570

== ENCOUNTER → 2025-10-23 | Outpatient (CLI) | payer MEDICARE, OTHER, SELFPAY ==
--- NOTE | 2025-10-23 09:40 | ECHOCS_ITS ---
Reason For Study Reason For Study: DYSPNEA Procedure This was a 2D Doppler, Color Flow transthoracic echocardiogram. The study was technically difficult. Contrast injection was performed. Exam performed in department. Left Ventricle Normal LV size. Mild concentric left ventricular hypertrophy. The left ventricular ejection fraction is 60 %. Stage 1 diastolic dysfunction. Right Ventricle Normal right ventricle. Atria The left atrium is moderately enlarged. Normal right atrium. Mitral Valve Trivial mitral valve insufficiency. Tricuspid Valve Trivial tricuspid valve insufficiency. Unable to estimate RV systolic pressure due to insufficient tricuspid regurgitant envelope. Aortic Valve Trisinus/trileaflet aortic valve. Pulmonic Valve The pulmonic valve is not well visualized. Great Vessels Normal sized aortic root. Pericardium/Pleural No pericardial effusion. Medication 22 gauge I.V. with prn adaptor inserted into right arm. Diluted definity 1ml given slow IV push to enhance endocardial definition. MMode/2D Measurements & Calculations LVIDd: 5.7 cm IVSd: 1.3 cm Ao root diam: 3.3 cm LVIDs: 3.9 cm LVPWd: 1.5 cm FS: 32.0 % LAV(MOD-bp): 47.0 ml LVAd ap4: 34.4 cm2 SV(MOD-sp4): 64.4 ml LAV(MOD-bp) Indexed: 22.3 ml/m2 LVLd ap4: 8.5 cm SI(MOD-sp4): 30.5 ml/m2 LAV(MOD-sp2): 50.0 ml EDV(MOD-sp4): 115.4 ml LAV(MOD-sp4): 40.1 ml EDV(sp4-el): 118.7 ml LVAs ap4: 20.9 cm2 LVLs ap4: 7.1 cm ESV(MOD-sp4): 51.0 ml ESV(sp4-el): 52.1 ml EF(MOD-sp4): 55.8 % EF(sp4-el): 56.1 % SV(sp4-el): 66.6 ml LA A4 area: 15.2 cm2 LA dimension(2D): 4.5 cm RA A4 area: 23.4 cm2 Time Measurements MV dec time: 0.23 sec Doppler Measurements & Calculations MV E max dmitry: 102.4 cm/sec Lat Peak E' Dmitry: 12.4 cm/sec Med Peak E' Dmitry: 10.3 cm/sec MV A max dmitry: 90.7 cm/sec E/E' lat: 8.3 E/E' med: 10.0 MV E/A: 1.1 MV V2 max: 105.1 cm/sec MV dec slope: 447.4 cm/sec2 Ao V2 max: 197.6 cm/sec MV max P.4 mmHg Ao max P.6 mmHg MV V2 mean: 56.9 cm/sec Ao V2 mean: 131.1 cm/sec MV mean P.6 mmHg Ao mean P.0 mmHg MV V2 VTI: 41.8 cm Ao V2 VTI: 42.1 cm AV (velocity ratio): 0.77 LV V1 max: 136.2 cm/sec LV V1 max P.4 mmHg LV V1 mean P.8 mmHg LV V1 mean: 104.2 cm/sec LV V1 VTI: 32.6 cm ECHO/Echo Complete W/ Contrast Interpretation Summary Mild concentric left ventricular hypertrophy. The left ventricular ejection fraction is 60 %. Stage 1 diastolic dysfunction. The left atrium is moderately enlarged. The study was technically difficult. Ordering Physician: Mateo Frazier Referring Physician: Mateo Frazier Performed By: Jasmyne Gaming RCS
== END | disposition home or self-care (01) ==
LOC: CVS 09:36
PROVIDERS: PCP Family Medicine; Referring Provider Ophthalmology; Visit Provider Ophthalmology
DX: G45.3 Amaurosis fugax (principal)
CPT/HCPCS: 93306; Q9957; A4216; C8929

== ENCOUNTER → 2025-11-10 | Outpatient (CLI) | payer MEDICARE, OTHER, SELFPAY ==
--- NOTE | 2025-11-10 12:56 | CT_ITS ---
PROCEDURE: CTA HEAD AND NECK W/ CONTRAST 11/10/2025 CT head without contrast: REASON FOR EXAM: CAROTID STENOSIS TECHNIQUE: Procedure Code: [id number].HDNCK Modality: CT Procedure: CTA HEAD AND NECK W/ CONTRAST Multiplanar Sagittal and Coronal images were obtained. Multi planer CT head without contrast CONTRAST: Isovue 370 VOLUME: 100 mL One or more dose reduction techniques were used (e.g., Automated exposure control, adjustment of the mA and/or kV according to patient size, use of iterative reconstruction technique). RADIATION DOSE SUMMARY: CTDlvol: 20.5 mGy DLP: 824.26 mGycm COMPARISON: None FINDINGS: CT head: No acute territorial infarction. No acute intracranial hemorrhage. No mass- effect or midline shift. Diffuse white matter hypodensities which are nonspecific but likely due to chronic small-vessel ischemia. Parenchymal volume loss consistent with brain atrophy. No ventriculomegaly. The orbits are unremarkable. The craniocervical junction is unremarkable. No acute bony abnormalities. No soft tissue abnormalities. CTA head and neck: Aortic Arch: Normal size and branching pattern. No significant atherosclerotic plaque. Brachiocephalic and Subclavians: Unremarkable RIGHT Carotid: Right CCA: Unremarkable. Right ICA: Status post endarterectomy. No hemodynamically significant stenosis. Right ECA: Unremarkable. LEFT Carotid: Left CCA: Unremarkable. Left ICA: Unremarkable. Left ECA: Unremarkable. Vertebrals: Codominant. Arise from the subclavians. Both vertebrals form the basilar. RIGHT Vertebral: Unremarkable. LEFT Vertebral: Unremarkable. Anatomy: [place] anatomy is normal. Aneurysm or avm: No intracranial aneurysms or large vascular malformations are identified. Anterior cerebral arteries: Unremarkable: Middle cerebral arteries: Unremarkable. Basilar artery: Unremarkable. Posterior cerebral arteries: Unremarkable. Other major branches of the posterior circulation: Unremarkable. Major venous structures: Unremarkable. Other findings: Neck: No lymphadenopathy. Lungs: Lung apices are clear. Bones: Bones are unremarkable. CT/CTA Head AND Neck W/ Contrast IMPRESSION: No acute intracranial abnormalities. No hemodynamically significant stenosis in the head and neck. No aneurysm. Reading Location: [facility]
== END | disposition home or self-care (01) ==
LOC: CT 12:52
PROVIDERS: PCP Family Medicine; Referring Provider Ophthalmology; Visit Provider Ophthalmology
DX: H34.232 Retinal artery branch occlusion, left eye (principal)
CPT/HCPCS: 70496; 70498; Q9967